=== PATIENT | female | born 1940 | race Caucasian/White ===

== ENCOUNTER 2020-10-11 10:34 | Day surgery (SDC) | payer BC ==
--- OUTSIDE RECORDS SUMMARY | 2020-10-11 10:56 | XMS REPORT | Continuity of Care Document ---
:1940 Author Organization [facility] t Address [phone] Care Team Providers Name Role Phone Doctor Unassigned, Name Attending Clinician Unavailable 1, Lab Attending Clinician Unavailable Payers Payer Name Policy Type Policy Number Effective Date Expiration Date S ource Problems This patient has no known problems. Allergies, Adverse Reactions, Alerts Allergy Allergy Status Severity Reaction(s) Onset Inactive Treating Comm ents Source Name Type Date Date Clinician No Known DA Active U 2018-11 [facility] 0-12 [place] [facility] 00:00: [address] No Known DA Active U 2003-0 [facility]rast 12-20 [place] [facility] 00:00: [address] No Known DA Active U 2004-0 [facility] 12-20 [place] [facility] 00:00: [address] No Known DA Active U 2003-0 [facility] 12-20 [place] [facility] 00:00: [address] No Known DA Active U 2004-0 [facility] Other 12-20 [place] [facility] 00:00: [address] Medications This patient has no known medications. Procedures This patient has no known procedures. 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 1, [facility] Lab [facility] [id number] 15:22:57 15:37:57 Visit [place] [id number] [place] [id number] [place] [id number] [id number] 2019-08-02 2019-08-02 Orders Doctor JOSHI [id number] 00:00:00 00:00:00 Only UnassignedMARGARITA [id number] [place] [id number] [id number] [id number] Results Test Description Test Time Test Comments Results Result Comments Source GLUCOSE BEDSIDE TESTING 2019-09-11 21:59:00 Test Item Value Reference Range Interpretation Comme nts GLUCOSE BEDSIDE TESTING (test code = GLUBED) 250 MG/DL 60-99 H GLUCOSE BEDSIDE [id number] 12:28:00 Test Item Value Reference Range Interpretation Comments GLUCOSE BEDSIDE TESTING (test code 202 MG/DL 60-99 H = GLUBED) BASIC METABOLIC [id number] 07:39:00 Test Item Value Reference Range Interpretation Comments SODIUM (test code = 134 MMOL/L 137-145 L NA) POTASSIUM (test code = 3.9 MMOL/L 3.5-5.1 N K) CHLORIDE (test code = 98 MMOL/L 98-107 N CL) CARBON DIOXIDE (test 27 MMOL/L 22-30 N code = CO2) GLUCOSE (test code = 277 MG/DL 74-106 H GLU) BLOOD UREA NITROGEN 28 MG/DL 7-17 H (test code = BUN) GLOMERULAR FILTRATION 48 Report ing units: RATE (test code = GFR) ml/mi n/1.73 m2 (Modified MDRD Formula)Referen ce Range: > or = 6 0 ml/min/1.73 m2 CREATININE (test code 1.10 MG/DL 0.52-1.04 H = CREAT) CALCIUM (test code = 9.2 MG/DL 8.4-10.2 N CA) BASIC METABOLIC [id number] 07:38:00 Test Item Value Reference Range Interpretation Comments SODIUM (test code = 134 MMOL/L 137-145 L NA) POTASSIUM (test code = 3.9 MMOL/L 3.5-5.1 N K) CHLORIDE (test code = 98 MMOL/L 98-107 N CL) CARBON DIOXIDE (test MMOL/L 22-30 code = CO2) GLUCOSE (test code = MG/DL 74-106 GLU) BLOOD UREA NITROGEN MG/DL 7-17 (test code = BUN) GLOMERULAR FILTRATION 48 Report ing units: RATE (test code = GFR) ml/mi n/1.73 m2 (Modified MDRD Formula)Referen ce Range: > or = 6 0 ml/min/1.73 m2 CREATININE (test code 1.10 MG/DL 0.52-1.04 H = CREAT) CALCIUM (test code = MG/DL 8.7-9.7 CA) BASIC METABOLIC [id number] 07:36:00 Test Item Value Reference Range Interpretation Comments SODIUM (test code = NA) 134 MMOL/L 137-145 L POTASSIUM (test code = K) 3.9 MMOL/L 3.5-5.1 N CHLORIDE (test code = CL) 98 MMOL/L 98-107 N CARBON DIOXIDE (test code = CO2) MMOL/L 22-30 GLUCOSE (test code = GLU) MG/DL 74-106 BLOOD UREA NITROGEN (test code = MG/DL 7-17 BUN) GLOMERULAR FILTRATION RATE (test code = GFR) CREATININE (test code = CREAT) MG/DL 0.52-1.04 CALCIUM (test code = CA) MG/DL 8.7-9.7 GLUCOSE BEDSIDE [id number] 06:49:00 Test Item Value Reference Range Interpretation Comments GLUCOSE BEDSIDE TESTING (test code 264 MG/DL 60-99 H = GLUBED) GLUCOSE BEDSIDE [id number] 06:27:00 Test Item Value Reference Range Interpretation Comments GLUCOSE BEDSIDE TESTING (test code 266 MG/DL 60-99 H = GLUBED) GLUCOSE BEDSIDE [id number] 17:19:00 Test Item Value Reference Range Interpretation Comments GLUCOSE BEDSIDE TESTING (test code 209 MG/DL 60-99 H = GLUBED) GLUCOSE BEDSIDE [id number] 15:13:00 Test Item Value Reference Range Interpretation Comments GLUCOSE BEDSIDE TESTING (test code 265 MG/DL 60-99 H = GLUBED) GLUCOSE BEDSIDE [id number] 06:51:00 Test Item Value Reference Range Interpretation Comments GLUCOSE BEDSIDE TESTING (test code 256 MG/DL 60-99 H = GLUBED) GLUCOSE BEDSIDE [id number] 21:01:00 Test Item Value Reference Range Interpretation Comments GLUCOSE BEDSIDE TESTING (test code 274 MG/DL 60-99 H = GLUBED) GLUCOSE BEDSIDE [id number] 21:01:00 Test Item Value Reference Range Interpretation Comments GLUCOSE BEDSIDE TESTING (test code 228 MG/DL 60-99 H = GLUBED) GLUCOSE BEDSIDE [id number] 21:01:00 Test Item Value Reference Range Interpretation Comments GLUCOSE BEDSIDE TESTING (test code 250 MG/DL 60-99 H = GLUBED) GLUCOSE BEDSIDE [id number] 11:28:00 Test Item Value Reference Range Interpretation Comments GLUCOSE BEDSIDE TESTING (test code 228 MG/DL 60-99 H = GLUBED) GLUCOSE BEDSIDE [id number] 08:24:00 Test Item Value Reference Range Interpretation Comments GLUCOSE BEDSIDE TESTING (test code 230 MG/DL 60-99 H = GLUBED) GLUCOSE BEDSIDE [id number] 05:54:00 Test Item Value Reference Range Interpretation Comments GLUCOSE BEDSIDE TESTING 257 MG/DL 60-99 H Noti fied Nurse~ (test code = GLUBED) GLUCOSE BEDSIDE [id number] 00:11:00 Test Item Value Reference Range Interpretation Comments GLUCOSE BEDSIDE TESTING (test code 257 MG/DL 60-99 H = GLUBED) GLUCOSE BEDSIDE [id number] 20:57:00 Test Item Value Reference Range Interpretation Comments GLUCOSE BEDSIDE TESTING 268 MG/DL 60-99 H Noti fied Nurse~ (test code = GLUBED) GLUCOSE BEDSIDE [id number] 17:16:00 Test Item Value Reference Range Interpretation Comments GLUCOSE BEDSIDE TESTING (test code 182 MG/DL 60-99 H = GLUBED) GLUCOSE BEDSIDE [id number] 14:33:00 Test Item Value Reference Range Interpretation Comments GLUCOSE BEDSIDE TESTING (test code 243 MG/DL 60-99 H = GLUBED) GLUCOSE BEDSIDE [id number] 12:53:00 Test Item Value Reference Range Interpretation Comments GLUCOSE BEDSIDE TESTING (test code 278 MG/DL 60-99 H = GLUBED) POC ARTERIAL BLOOD [id number] 10:39:00 Test Item Value Reference Range Interpretation Comments POC ARTERIAL BLOOD GAS PH 7.448 7.35-7.45 N (test code = POCPHA) POC ARTERIAL BLOOD GAS PCO2 35.2 mmHg 35.0-45.0 N (test code = [id number]) POC ARTERIAL BLOOD GAS PO2 70 75.0-100.0 L (test code = FNHDB1G) POC HCO3 ARTERIAL (test code 24.4 MMOL/L 20.0-26.0 N = ZNLRWW3A) POC BASE EXCESS (test code = 0.0 MMOL/L -3.0-3.0 N POCBEA) POC O2 SATURATION (test code 95 % 92.0-98.5 N = POCO2S) FIO2 (test code = FIO2A) 21 % 21-100 N ABG DELIVERY (test code = Room Air JOSE) ABG SITE (test code = SITEA) R Radial ALLENS TEST (test code = YES CHECK RN Ntfd//RBV~ ALLENS) GLUCOSE BEDSIDE [id number] 08:49:00 Test Item Value Reference Range Interpretation Comments GLUCOSE BEDSIDE TESTING (test code 237 MG/DL 60-99 H = GLUBED) BASIC METABOLIC [id number] 08:29:00 Test Item Value Reference Range Interpretation Comments SODIUM (test code = 136 MMOL/L 137-145 L NA) POTASSIUM (test code = 4.3 MMOL/L 3.5-5.1 N K) CHLORIDE (test code = 96 MMOL/L 98-107 L CL) CARBON DIOXIDE (test 30 MMOL/L 22-30 N code = CO2) ANION GAP (test code = 14 MMOL/L 14-24 N GAP) GLUCOSE (test code = 249 MG/DL 74-106 H GLU) BLOOD UREA NITROGEN 30 MG/DL 7-17 H (test code = BUN) GLOMERULAR FILTRATION 44 Report ing units: RATE (test code = GFR) ml/mi n/1.73 m2 (Modified MDRD Formula)Referen ce Range: > or = 6 0 ml/min/1.73 m2 CREATININE (test code 1.20 MG/DL 0.52-1.04 H = CREAT) CALCIUM (test code = 9.7 MG/DL 8.4-10.2 N CA) BASIC METABOLIC [id number] 08:26:00 Test Item Value Reference Range Interpretation Comments SODIUM (test code = 136 MMOL/L 137-145 L NA) POTASSIUM (test code = 4.3 MMOL/L 3.5-5.1 N K) CHLORIDE (test code = 96 MMOL/L 98-107 L CL) CARBON DIOXIDE (test MMOL/L 22-30 code = CO2) GLUCOSE (test code = MG/DL 74-106 GLU) BLOOD UREA NITROGEN MG/DL 7-17 (test code = BUN) GLOMERULAR FILTRATION 44 Report ing units: RATE (test code = GFR) ml/mi n/1.73 m2 (Modified MDRD Formula)Referen ce Range: > or = 6 0 ml/min/1.73 m2 CREATININE (test code 1.20 MG/DL 0.52-1.04 H = CREAT) CALCIUM (test code = MG/DL 8.7-9.7 CA) BASIC METABOLIC [id number] 08:24:00 Test Item Value Reference Range Interpretation Comments SODIUM (test code = NA) 136 MMOL/L 137-145 L POTASSIUM (test code = K) 4.3 MMOL/L 3.5-5.1 N CHLORIDE (test code = CL) 96 MMOL/L 98-107 L CARBON DIOXIDE (test code = CO2) MMOL/L 22-30 GLUCOSE (test code = GLU) MG/DL 74-106 BLOOD UREA NITROGEN (test code = MG/DL 7-17 BUN) GLOMERULAR FILTRATION RATE (test code = GFR) CREATININE (test code = CREAT) MG/DL 0.52-1.04 CALCIUM (test code = CA) MG/DL 8.7-9.7 CBC W/AUTO [id number] 08:09:00 Test Item Value Reference Range Interpretation Comments WHITE BLOOD CELL (test code = 9.9 K/MM3 3.8-9.8 H WBC) RED BLOOD CELL (test code = 4.37 M/MM3 3.58-4.97 N RBC) HEMOGLOBIN (test code = HGB) 10.6 G/DL 11.2-14.9 L HEMATOCRIT (test code = HCT) 34.3 % 33.2-43.5 N MEAN CELL VOLUME (test code = 79 fL 80.7-99.1 L MCV) MEAN CELL HGB (test code = MCH) 24.3 pg 27.0-34.1 L MEAN CELL HGB CONCETRATION 30.9 % 32.2-35.7 L (test code = MCHC) RED CELL DISTRIBUTION WIDTH 17.5 % 12.1-15.2 H (test code = RDW) PLATELET COUNT (test code = 345 K/MM3 129-368 N PLT) MEAN PLATELET VOLUME (test code 10.1 fl 7.4-10.4 N = MPV) NEUTROPHIL % (test code = NT%) 68.5 % 43-75 N IMMATURE GRANULOCYTE % (test 1.5 % 0.0-2.0 N code = IG%) LYMPHOCYTE % (test code = LY%) 15.9 % 14-44 N MONOCYTE % (test code = MO%) 8.8 % 4-13 N EOSINOPHIL % (test code = EO%) 4.5 % 0-6 N BASOPHIL % (test code = BA%) 0.8 % 0-2 N NUCLEATED RBC % (test code = 0.0 % 0-1.0 N NRBC%) NEUTROPHIL # (test code = NT#) 6.76 K/mm3 2.0-7.6 N IMMATURE GRANULOCYTE # (test 0.15 x10 3/uL 0-0.03 H code = IG#) LYMPHOCYTE # (test code = LY#) 1.57 K/mm3 1.0-3.8 N MONOCYTE # (test code = MO#) 0.87 K/mm3 0.1-0.8 H EOSINOPHIL # (test code = EO#) 0.44 K/mm3 0.0-0.2 H BASOPHIL # (test code = BA#) 0.08 K/mm3 0.0-0.2 N NUCLEATED RBC # (test code = 0.00 K/mm3 0.0-0.1 N NRBC#) GLUCOSE BEDSIDE [id number] 22:06:00 Test Item Value Reference Range Interpretation Comments GLUCOSE BEDSIDE TESTING (test code 172 MG/DL 60-99 H = GLUBED) GLUCOSE BEDSIDE [id number] 22:06:00 Test Item Value Reference Range Interpretation Comments GLUCOSE BEDSIDE TESTING (test code 313 MG/DL 60-99 HH = GLUBED) GLUCOSE BEDSIDE [id number] 12:54:00 Test Item Value Reference Range Interpretation Comments GLUCOSE BEDSIDE TESTING (test code 167 MG/DL 60-99 H = GLUBED) GLUCOSE BEDSIDE [id number] 12:54:00 Test Item Value Reference Range Interpretation Comments GLUCOSE BEDSIDE TESTING (test code 266 MG/DL 60-99 H = GLUBED) GLUCOSE BEDSIDE [id number] 12:04:00 Test Item Value Reference Range Interpretation Comments GLUCOSE BEDSIDE TESTING (test code 292 MG/DL 60-99 H = GLUBED) GLUCOSE BEDSIDE [id number] 12:04:00 Test Item Value Reference Range Interpretation Comments GLUCOSE BEDSIDE TESTING (test code 334 MG/DL 60-99 HH = GLUBED) GLUCOSE BEDSIDE [id number] 12:03:00 Test Item Value Reference Range Interpretation Comments GLUCOSE BEDSIDE TESTING (test code 275 MG/DL 60-99 H = GLUBED) GLUCOSE BEDSIDE [id number] 12:03:00 Test Item Value Reference Range Interpretation Comments GLUCOSE BEDSIDE TESTING (test code 308 MG/DL 60-99 HH = GLUBED) GLUCOSE BEDSIDE [id number] 12:02:00 Test Item Value Reference Range Interpretation Comments GLUCOSE BEDSIDE TESTING (test code 178 MG/DL 60-99 H = GLUBED) GLUCOSE BEDSIDE [id number] 12:02:00 Test Item Value Reference Range Interpretation Comments GLUCOSE BEDSIDE TESTING (test code 250 MG/DL 60-99 H = GLUBED) GLUCOSE BEDSIDE [id number] 12:02:00 Test Item Value Reference Range Interpretation Comments GLUCOSE BEDSIDE TESTING (test code 356 MG/DL 60-99 HH = GLUBED) GLUCOSE BEDSIDE [id number] 12:00:00 Test Item Value Reference Range Interpretation Comments GLUCOSE BEDSIDE TESTING (test code 242 MG/DL 60-99 H = GLUBED) GLUCOSE BEDSIDE [id number] 06:27:00 Test Item Value Reference Range Interpretation Comments GLUCOSE BEDSIDE TESTING (test code 201 MG/DL 60-99 H = GLUBED) GLUCOSE BEDSIDE [id number] 06:27:00 Test Item Value Reference Range Interpretation Comments GLUCOSE BEDSIDE TESTING (test code 210 MG/DL 60-99 H = GLUBED) GLUCOSE BEDSIDE [id number] 21:24:00 Test Item Value Reference Range Interpretation Comments GLUCOSE BEDSIDE TESTING (test code 161 MG/DL 60-99 H = GLUBED) GLUCOSE BEDSIDE [id number] 16:14:00 Test Item Value Reference Range Interpretation Comments GLUCOSE BEDSIDE TESTING (test code 300 MG/DL 60-99 H = GLUBED) FE W/TOTAL IRON BINDING CAP.[id number] 07:28:00 Test Item Value Reference Range Interpretation Comments SERUM IRON (test code = IRON) 24 MCG/DL 37-170 L TOTAL IRON BINDING CAPACITY (test 415 MCG/DL 265-497 N code = TIBC) IRON SATURATION (test code = 6 % 12-57 L FESAT) COMPREHENSIVE METABOLIC [id number] 07:25:00 Test Item Value Reference Range Interpretation Comments SODIUM (test code = NA) 136 MMOL/L 137-145 L POTASSIUM (test code = 3.9 MMOL/L 3.5-5.1 N K) CHLORIDE (test code = 98 MMOL/L 98-107 N CL) CARBON DIOXIDE (test 30 MMOL/L 22-30 N code = CO2) ANION GAP (test code = 12 MMOL/L 14-24 L GAP) GLUCOSE (test code = 187 MG/DL 74-106 H GLU) BLOOD UREA NITROGEN 26 MG/DL 7-17 H (test code = BUN) GLOMERULAR FILTRATION 44 Report ing units: RATE (test code = GFR) ml/mi n/1.73 m2 (Modified MDRD Formula)Referen ce Range: > or = 6 0 ml/min/1.73 m2 CREATININE (test code = 1.20 MG/DL 0.52-1.04 H CREAT) TOTAL PROTEIN (test 6.9 G/DL 6.3-8.2 N code = PROT) ALBUMIN (test code = 3.8 G/DL 3.5-5.0 N ALB) CALCIUM (test code = 9.2 MG/DL 8.4-10.2 N CA) BILIRUBIN TOTAL (test 0.3 MG/DL 0.2-1.3 code = BILT) SGOT/AST (test code = 23 UNITS/L 14-36 AST) SGPT/ALT (test code = 48 UNITS/L 9-52 ALT) ALKALINE PHOSPHATASE 87 UNITS/L 38-126 N (test code = ALKP) [id number] 07:25:00 Test Item Value Reference Range Interpretation Comments PHOSPHOROUS (test code = PHOS) 4.0 MG/DL 2.5-4.5 N [id number] 07:25:00 Test Item Value Reference Range Interpretation Comments MAGNESIUM (test code = MAG) 2.0 MG/DL 1.6-2.3 FE W/TOTAL IRON BINDING CAP.2019-09-06 07:18:00 Test Item Value Reference Range Interpretation Comments SERUM IRON (test code = IRON) 24 MCG/DL 37-170 L TOTAL IRON BINDING CAPACITY (test MCG/DL 265-497 code = TIBC) IRON SATURATION (test code = FESAT) % 12-57 COMPREHENSIVE METABOLIC [id number] 07:13:00 Test Item Value Reference Range Interpretation Comments SODIUM (test code = NA) 136 MMOL/L 137-145 L POTASSIUM (test code = K) 3.9 MMOL/L 3.5-5.1 N CHLORIDE (test code = CL) 98 MMOL/L 98-107 N CARBON DIOXIDE (test code = CO2) MMOL/L 22-30 GLUCOSE (test code = GLU) MG/DL 74-106 BLOOD UREA NITROGEN (test code = MG/DL 7-17 BUN) GLOMERULAR FILTRATION RATE (test code = GFR) CREATININE (test code = CREAT) MG/DL 0.52-1.04 TOTAL PROTEIN (test code = PROT) G/DL 6.3-8.2 ALBUMIN (test code = ALB) 3.8 G/DL 3.5-5.0 N CALCIUM (test code = CA) MG/DL 8.7-9.7 BILIRUBIN TOTAL (test code = BILT) MG/DL 0.2-1.3 SGOT/AST (test code = AST) UNITS/L 15-37 SGPT/ALT (test code = ALT) UNITS/L 9-52 ALKALINE PHOSPHATASE (test code = UNITS/L 38-126 ALKP) [id number] 07:13:00 Test Item Value Reference Range Interpretation Comments PHOSPHOROUS (test code = PHOS) MG/DL 2.5-4.5 [id number] 07:13:00 Test Item Value Reference Range Interpretation Comments MAGNESIUM (test code = MAG) MG/DL 1.6-2.3 COMPREHENSIVE METABOLIC [id number] 07:12:00 Test Item Value Reference Range Interpretation Comments SODIUM (test code = NA) MMOL/L 137-145 POTASSIUM (test code = K) MMOL/L 3.5-5.1 CHLORIDE (test code = CL) MMOL/L 98-107 CARBON DIOXIDE (test code = CO2) MMOL/L 22-30 GLUCOSE (test code = GLU) MG/DL 74-106 BLOOD UREA NITROGEN (test code = MG/DL 7-17 BUN) GLOMERULAR FILTRATION RATE (test code = GFR) CREATININE (test code = CREAT) MG/DL 0.52-1.04 TOTAL PROTEIN (test code = PROT) G/DL 6.3-8.2 ALBUMIN (test code = ALB) 3.8 G/DL 3.5-5.0 N CALCIUM (test code = CA) MG/DL 8.7-9.7 BILIRUBIN TOTAL (test code = BILT) MG/DL 0.2-1.3 SGOT/AST (test code = AST) UNITS/L 15-37 SGPT/ALT (test code = ALT) UNITS/L 9-52 ALKALINE PHOSPHATASE (test code = UNITS/L 38-126 ALKP) [id number] 07:12:00 Test Item Value Reference Range Interpretation Comments PHOSPHOROUS (test code = PHOS) MG/DL 2.5-4.5 [id number] 07:12:00 Test Item Value Reference Range Interpretation Comments MAGNESIUM (test code = MAG) MG/DL 1.6-2.3 CBC W/AUTO [id number] 06:32:00 Test Item Value Reference Range Interpretation Comments WHITE BLOOD CELL (test code = 11.8 K/MM3 3.8-9.8 H WBC) RED BLOOD CELL (test code = 4.21 M/MM3 3.58-4.97 N RBC) HEMOGLOBIN (test code = HGB) 10.1 G/DL 11.2-14.9 L HEMATOCRIT (test code = HCT) 33.4 % 33.2-43.5 N MEAN CELL VOLUME (test code = 79 fL 80.7-99.1 L MCV) MEAN CELL HGB (test code = MCH) 24.0 pg 27.0-34.1 L MEAN CELL HGB CONCETRATION 30.2 % 32.2-35.7 L (test code = MCHC) RED CELL DISTRIBUTION WIDTH 17.7 % 12.1-15.2 H (test code = RDW) PLATELET COUNT (test code = 334 K/MM3 129-368 N PLT) MEAN PLATELET VOLUME (test code 10.0 fl 7.4-10.4 N = MPV) NEUTROPHIL % (test code = NT%) 67.8 % 43-75 N IMMATURE GRANULOCYTE % (test 0.6 % 0.0-2.0 N code = IG%) LYMPHOCYTE % (test code = LY%) 19.0 % 14-44 N MONOCYTE % (test code = MO%) 8.6 % 4-13 N EOSINOPHIL % (test code = EO%) 3.6 % 0-6 N BASOPHIL % (test code = BA%) 0.4 % 0-2 N NUCLEATED RBC % (test code = 0.0 % 0-1.0 N NRBC%) NEUTROPHIL # (test code = NT#) 7.98 K/mm3 2.0-7.6 H IMMATURE GRANULOCYTE # (test 0.07 x10 3/uL 0-0.03 H code = IG#) LYMPHOCYTE # (test code = LY#) 2.24 K/mm3 1.0-3.8 N MONOCYTE # (test code = MO#) 1.01 K/mm3 0.1-0.8 H EOSINOPHIL # (test code = EO#) 0.42 K/mm3 0.0-0.2 H BASOPHIL # (test code = BA#) 0.05 K/mm3 0.0-0.2 N NUCLEATED RBC # (test code = 0.00 K/mm3 0.0-0.1 N NRBC#) GLUCOSE BEDSIDE [id number] 05:58:00 Test Item Value Reference Range Interpretation Comments GLUCOSE BEDSIDE TESTING (test code 167 MG/DL 60-99 H = GLUBED) GLUCOSE BEDSIDE [id number] 02:02:00 Test Item Value Reference Range Interpretation Comments GLUCOSE BEDSIDE TESTING (test code 122 MG/DL 60-99 H = GLUBED) GLUCOSE BEDSIDE [id number] 21:33:00 Test Item Value Reference Range Interpretation Comments GLUCOSE BEDSIDE TESTING (test code 264 MG/DL 60-99 H = GLUBED) COMPREHENSIVE METABOLIC [id number] 07:21:00 Test Item Value Reference Range Interpretation Comments SODIUM (test code = NA) 139 MMOL/L 137-145 N POTASSIUM (test code = 3.5 MMOL/L 3.5-5.1 N K) CHLORIDE (test code = 98 MMOL/L 98-107 N CL) CARBON DIOXIDE (test 32 MMOL/L 22-30 H code = CO2) ANION GAP (test code = 13 MMOL/L 14-24 L GAP) GLUCOSE (test code = 162 MG/DL 74-106 H GLU) BLOOD UREA NITROGEN 29 MG/DL 7-17 H (test code = BUN) GLOMERULAR FILTRATION 40 Report ing units: RATE (test code = GFR) ml/mi n/1.73 m2 (Modified MDRD Formula)Referen ce Range: > or = 6 0 ml/min/1.73 m2 CREATININE (test code = 1.30 MG/DL 0.52-1.04 H CREAT) TOTAL PROTEIN (test 6.7 G/DL 6.3-8.2 N code = PROT) ALBUMIN (test code = 3.7 G/DL 3.5-5.0 N ALB) CALCIUM (test code = 8.9 MG/DL 8.4-10.2 N CA) BILIRUBIN TOTAL (test 0.4 MG/DL 0.2-1.3 N code = BILT) SGOT/AST (test code = 37 UNITS/L 14-36 H AST) SGPT/ALT (test code = 64 UNITS/L 9-52 H ALT) ALKALINE PHOSPHATASE 84 UNITS/L 38-126 (test code = ALKP) [id number] 07:21:00 Test Item Value Reference Range Interpretation Comments PHOSPHOROUS (test code = PHOS) 4.4 MG/DL 2.5-4.5 [id number] 07:21:00 Test Item Value Reference Range Interpretation Comments MAGNESIUM (test code = MAG) 1.7 MG/DL 1.6-2.3 N COMPREHENSIVE METABOLIC [id number] 07:20:00 Test Item Value Reference Range Interpretation Comments SODIUM (test code = NA) 139 MMOL/L 137-145 N POTASSIUM (test code = 3.5 MMOL/L 3.5-5.1 N K) CHLORIDE (test code = 98 MMOL/L 98-107 N CL) CARBON DIOXIDE (test 32 MMOL/L 22-30 H code = CO2) ANION GAP (test code = 13 MMOL/L 14-24 L GAP) GLUCOSE (test code = 162 MG/DL 74-106 H GLU) BLOOD UREA NITROGEN 29 MG/DL 7-17 H (test code = BUN) GLOMERULAR FILTRATION 40 Report ing units: RATE (test code = GFR) ml/mi n/1.73 m2 (Modified MDRD Formula)Referen ce Range: > or = 6 0 ml/min/1.73 m2 CREATININE (test code = 1.30 MG/DL 0.52-1.04 H CREAT) TOTAL PROTEIN (test 6.7 G/DL 6.3-8.2 N code = PROT) ALBUMIN (test code = 3.7 G/DL 3.5-5.0 N ALB) CALCIUM (test code = MG/DL 8.7-9.7 CA) BILIRUBIN TOTAL (test 0.4 MG/DL 0.2-1.3 N code = BILT) SGOT/AST (test code = 37 UNITS/L 14-36 H AST) SGPT/ALT (test code = 64 UNITS/L 9-52 H ALT) ALKALINE PHOSPHATASE 84 UNITS/L 38-126 (test code = ALKP) [id number] 07:20:00 Test Item Value Reference Range Interpretation Comments PHOSPHOROUS (test code = PHOS) 4.4 MG/DL 2.5-4.5 [id number] 07:20:00 Test Item Value Reference Range Interpretation Comments MAGNESIUM (test code = MAG) MG/DL 1.6-2.3 COMPREHENSIVE METABOLIC [id number] 07:20:00 Test Item Value Reference Range Interpretation Comments SODIUM (test code = NA) 139 MMOL/L 137-145 N POTASSIUM (test code = 3.5 MMOL/L 3.5-5.1 N K) CHLORIDE (test code = 98 MMOL/L 98-107 N CL) CARBON DIOXIDE (test 32 MMOL/L 22-30 H code = CO2) ANION GAP (test code = 13 MMOL/L 14-24 L GAP) GLUCOSE (test code = 162 MG/DL 74-106 H GLU) BLOOD UREA NITROGEN 29 MG/DL 7-17 H (test code = BUN) GLOMERULAR FILTRATION 40 Report ing units: RATE (test code = GFR) ml/mi n/1.73 m2 (Modified MDRD Formula)Referen ce Range: > or = 6 0 ml/min/1.73 m2 CREATININE (test code = 1.30 MG/DL 0.52-1.04 H CREAT) TOTAL PROTEIN (test 6.7 G/DL 6.3-8.2 N code = PROT) ALBUMIN (test code = 3.7 G/DL 3.5-5.0 N ALB) CALCIUM (test code = 8.9 MG/DL 8.4-10.2 N CA) BILIRUBIN TOTAL (test 0.4 MG/DL 0.2-1.3 N code = BILT) SGOT/AST (test code = 37 UNITS/L 14-36 H AST) SGPT/ALT (test code = 64 UNITS/L 9-52 H ALT) ALKALINE PHOSPHATASE 84 UNITS/L 38-126 (test code = ALKP) [id number] 07:20:00 Test Item Value Reference Range Interpretation Comments PHOSPHOROUS (test code = PHOS) 4.4 MG/DL 2.5-4.5 [id number] 07:20:00 Test Item Value Reference Range Interpretation Comments MAGNESIUM (test code = MAG) MG/DL 1.6-2.3 COMPREHENSIVE METABOLIC [id number] 07:19:00 Test Item Value Reference Range Interpretation Comments SODIUM (test code = NA) 139 MMOL/L 137-145 N POTASSIUM (test code = 3.5 MMOL/L 3.5-5.1 N K) CHLORIDE (test code = 98 MMOL/L 98-107 N CL) CARBON DIOXIDE (test MMOL/L 22-30 code = CO2) GLUCOSE (test code = MG/DL 74-106 GLU) BLOOD UREA NITROGEN MG/DL 7-17 (test code = BUN) GLOMERULAR FILTRATION 40 Report ing units: RATE (test code = GFR) ml/mi n/1.73 m2 (Modified MDRD Formula)Referen ce Range: > or = 6 0 ml/min/1.73 m2 CREATININE (test code = 1.30 MG/DL 0.52-1.04 H CREAT) TOTAL PROTEIN (test G/DL 6.3-8.2 code = PROT) ALBUMIN (test code = 3.7 G/DL 3.5-5.0 N ALB) CALCIUM (test code = MG/DL 8.7-9.7 CA) BILIRUBIN TOTAL (test 0.4 MG/DL 0.2-1.3 N code = BILT) SGOT/AST (test code = UNITS/L 15-37 AST) SGPT/ALT (test code = UNITS/L 9-52 ALT) ALKALINE PHOSPHATASE UNITS/L 38-126 (test code = ALKP) [id number] 07:19:00 Test Item Value Reference Range Interpretation Comments PHOSPHOROUS (test code = PHOS) MG/DL 2.5-4.5 [id number] 07:19:00 Test Item Value Reference Range Interpretation Comments MAGNESIUM (test code = MAG) MG/DL 1.6-2.3 LACTIC [id number] 07:17:00 Test Item Value Reference Range Interpretation Comments LACTIC ACID (test code = LACT) 1.7 MMOL/L 0.7-2.1 N COMPREHENSIVE METABOLIC [id number] 07:17:00 Test Item Value Reference Range Interpretation Comments SODIUM (test code = NA) 139 MMOL/L 137-145 N POTASSIUM (test code = K) 3.5 MMOL/L 3.5-5.1 N CHLORIDE (test code = CL) 98 MMOL/L 98-107 N CARBON DIOXIDE (test code = CO2) MMOL/L 22-30 GLUCOSE (test code = GLU) MG/DL 74-106 BLOOD UREA NITROGEN (test code = MG/DL 7-17 BUN) GLOMERULAR FILTRATION RATE (test code = GFR) CREATININE (test code = CREAT) MG/DL 0.52-1.04 TOTAL PROTEIN (test code = PROT) G/DL 6.3-8.2 ALBUMIN (test code = ALB) 3.7 G/DL 3.5-5.0 N CALCIUM (test code = CA) MG/DL 8.7-9.7 BILIRUBIN TOTAL (test code = BILT) MG/DL 0.2-1.3 SGOT/AST (test code = AST) UNITS/L 15-37 SGPT/ALT (test code = ALT) UNITS/L 9-52 ALKALINE PHOSPHATASE (test code = UNITS/L 38-126 ALKP) [id number] 07:17:00 Test Item Value Reference Range Interpretation Comments PHOSPHOROUS (test code = PHOS) MG/DL 2.5-4.5 [id number] 07:17:00 Test Item Value Reference Range Interpretation Comments MAGNESIUM (test code = MAG) MG/DL 1.6-2.3 COMPREHENSIVE METABOLIC [id number] 07:16:00 Test Item Value Reference Range Interpretation Comments SODIUM (test code = NA) MMOL/L 137-145 POTASSIUM (test code = K) MMOL/L 3.5-5.1 CHLORIDE (test code = CL) MMOL/L 98-107 CARBON DIOXIDE (test code = CO2) MMOL/L 22-30 GLUCOSE (test code = GLU) MG/DL 74-106 BLOOD UREA NITROGEN (test code = MG/DL 7-17 BUN) GLOMERULAR FILTRATION RATE (test code = GFR) CREATININE (test code = CREAT) MG/DL 0.52-1.04 TOTAL PROTEIN (test code = PROT) G/DL 6.3-8.2 ALBUMIN (test code = ALB) 3.7 G/DL 3.5-5.0 N CALCIUM (test code = CA) MG/DL 8.7-9.7 BILIRUBIN TOTAL (test code = BILT) MG/DL 0.2-1.3 SGOT/AST (test code = AST) UNITS/L 15-37 SGPT/ALT (test code = ALT) UNITS/L 9-52 ALKALINE PHOSPHATASE (test code = UNITS/L 38-126 ALKP) [id number] 07:16:00 Test Item Value Reference Range Interpretation Comments PHOSPHOROUS (test code = PHOS) MG/DL 2.5-4.5 [id number] 07:16:00 Test Item Value Reference Range Interpretation Comments MAGNESIUM (test code = MAG) MG/DL 1.6-2.3 CBC W/AUTO [id number] 07:08:00 Test Item Value Reference Range Interpretation Comments WHITE BLOOD CELL (test code = 12.8 K/MM3 3.8-9.8 H WBC) RED BLOOD CELL (test code = 4.23 M/MM3 3.58-4.97 N RBC) HEMOGLOBIN (test code = HGB) 10.3 G/DL 11.2-14.9 L HEMATOCRIT (test code = HCT) 33.8 % 33.2-43.5 N MEAN CELL VOLUME (test code = 80 fL 80.7-99.1 L MCV) MEAN CELL HGB (test code = MCH) 24.3 pg 27.0-34.1 L MEAN CELL HGB CONCETRATION 30.5 % 32.2-35.7 L (test code = MCHC) RED CELL DISTRIBUTION WIDTH 18.1 % 12.1-15.2 H (test code = RDW) PLATELET COUNT (test code = 350 K/MM3 129-368 N PLT) MEAN PLATELET VOLUME (test code 10.4 fl 7.4-10.4 N = MPV) NEUTROPHIL % (test code = NT%) 71.7 % 43-75 N IMMATURE GRANULOCYTE % (test 0.9 % 0.0-2.0 N code = IG%) LYMPHOCYTE % (test code = LY%) 16.7 % 14-44 N MONOCYTE % (test code = MO%) 9.2 % 4-13 N EOSINOPHIL % (test code = EO%) 1.2 % 0-6 N BASOPHIL % (test code = BA%) 0.3 % 0-2 N NUCLEATED RBC % (test code = 0.0 % 0-1.0 N NRBC%) NEUTROPHIL # (test code = NT#) 9.17 K/mm3 2.0-7.6 H IMMATURE GRANULOCYTE # (test 0.12 x10 3/uL 0-0.03 H code = IG#) LYMPHOCYTE # (test code = LY#) 2.13 K/mm3 1.0-3.8 N MONOCYTE # (test code = MO#) 1.17 K/mm3 0.1-0.8 H EOSINOPHIL # (test code = EO#) 0.15 K/mm3 0.0-0.2 N BASOPHIL # (test code = BA#) 0.04 K/mm3 0.0-0.2 N NUCLEATED RBC # (test code = 0.00 K/mm3 0.0-0.1 N NRBC#) GLUCOSE BEDSIDE [id number] 03:49:00 Test Item Value Reference Range Interpretation Comments GLUCOSE BEDSIDE TESTING (test code 148 MG/DL 60-99 H = GLUBED) [id number] 01:07:00 Test Item Value Reference Range Interpretation Comments ACT-ISTAT (test code = ACTI) 120 SEC 74-137 N [id number] 01:07:00 Test Item Value Reference Range Interpretation Comments ACT-ISTAT (test code = ACTI) 125 SEC 74-137 N BASIC METABOLIC [id number] 23:48:00 Test Item Value Reference Range Interpretation Comments SODIUM (test code = 140 MMOL/L 137-145 N NA) POTASSIUM (test code = 3.8 MMOL/L 3.5-5.1 N K) CHLORIDE (test code = 100 MMOL/L 98-107 N CL) CARBON DIOXIDE (test 29 MMOL/L 22-30 N code = CO2) ANION GAP (test code = 15 MMOL/L 14-24 N GAP) GLUCOSE (test code = 188 MG/DL 74-106 H GLU) BLOOD UREA NITROGEN 28 MG/DL 7-17 H (test code = BUN) GLOMERULAR FILTRATION 40 Report ing units: RATE (test code = GFR) ml/mi n/1.73 m2 (Modified MDRD Formula)Referen ce Range: > or = 6 0 ml/min/1.73 m2 CREATININE (test code 1.30 MG/DL 0.52-1.04 H = CREAT) CALCIUM (test code = 9.4 MG/DL 8.4-10.2 N CA) Comments to Solution Maker: SPECIMEN IN LABIs this a LINE draw? NMAGNESIUM 2019-09-04 23:48:00 Test Item Value Reference Range Interpretation Comments MAGNESIUM (test code = MAG) 1.8 MG/DL 1.6-2.3 N Comments to Solution Maker: SPECIMEN IN LABIs this a LINE draw? NBASIC METABOLIC [id number] 23:47:00 Test Item Value Reference Range Interpretation Comments SODIUM (test code = NA) 140 MMOL/L 137-145 N POTASSIUM (test code = K) 3.8 MMOL/L 3.5-5.1 N CHLORIDE (test code = CL) 100 MMOL/L 98-107 N CARBON DIOXIDE (test code = CO2) 29 MMOL/L 22-30 N ANION GAP (test code = GAP) 15 MMOL/L 14-24 N GLUCOSE (test code = GLU) MG/DL 74-106 BLOOD UREA NITROGEN (test code = MG/DL 7-17 BUN) GLOMERULAR FILTRATION RATE (test code = GFR) CREATININE (test code = CREAT) MG/DL 0.52-1.04 CALCIUM (test code = CA) MG/DL 8.7-9.7 Comments to Solution Maker: SPECIMEN IN LABIs this a LINE draw? NMAGNESIUM 2019-09-04 23:47:00 Test Item Value Reference Range Interpretation Comments MAGNESIUM (test code = MAG) MG/DL 1.6-2.3 Comments to Solution Maker: SPECIMEN IN LABIs this a LINE draw? NBASIC METABOLIC [id number] 23:47:00 Test Item Value Reference Range Interpretation Comments SODIUM (test code = 140 MMOL/L 137-145 N NA) POTASSIUM (test code = 3.8 MMOL/L 3.5-5.1 N K) CHLORIDE (test code = 100 MMOL/L 98-107 N CL) CARBON DIOXIDE (test 29 MMOL/L 22-30 N code = CO2) ANION GAP (test code = 15 MMOL/L 14-24 N GAP) GLUCOSE (test code = MG/DL 74-106 GLU) BLOOD UREA NITROGEN MG/DL 7-17 (test code = BUN) GLOMERULAR FILTRATION 40 Report ing units: RATE (test code = GFR) ml/mi n/1.73 m2 (Modified MDRD Formula)Referen ce Range: > or = 6 0 ml/min/1.73 m2 CREATININE (test code 1.30 MG/DL 0.52-1.04 H = CREAT) CALCIUM (test code = MG/DL 8.7-9.7 CA) Comments to Solution Maker: SPECIMEN IN LABIs this a LINE draw? NMAGNESIUM 2019-09-04 23:47:00 Test Item Value Reference Range Interpretation Comments MAGNESIUM (test code = MAG) MG/DL 1.6-2.3 Comments to Solution Maker: SPECIMEN IN LABIs this a LINE draw? NBASIC METABOLIC [id number] 23:44:00 Test Item Value Reference Range Interpretation Comments SODIUM (test code = NA) 140 MMOL/L 137-145 N POTASSIUM (test code = K) 3.8 MMOL/L 3.5-5.1 N CHLORIDE (test code = CL) 100 MMOL/L 98-107 N CARBON DIOXIDE (test code = CO2) MMOL/L 22-30 GLUCOSE (test code = GLU) MG/DL 74-106 BLOOD UREA NITROGEN (test code = MG/DL 7-17 BUN) GLOMERULAR FILTRATION RATE (test code = GFR) CREATININE (test code = CREAT) MG/DL 0.52-1.04 CALCIUM (test code = CA) MG/DL 8.7-9.7 Comments to Solution Maker: SPECIMEN IN LABIs this a LINE draw? NMAGNESIUM 2019-09-04 23:44:00 Test Item Value Reference Range Interpretation Comments MAGNESIUM (test code = MAG) MG/DL 1.6-2.3 Comments to Solution Maker: SPECIMEN IN LABIs this a LINE draw? NGLUCOSE BEDSIDE [id number] 23:43:00 Test Item Value Reference Range Interpretation Comments GLUCOSE BEDSIDE TESTING (test code 155 MG/DL 60-99 H = GLUBED) [id number] 23:36:00 Test Item Value Reference Range Interpretation Comments TROPONIN-I (test 0.906 NG/ML 0.012-0.033 HH CALLED TO Sweta Conn& code = TROPI) READBACK ON AT 2336 BY [employer] GLUCOSE BEDSIDE [id number] 21:15:00 Test Item Value Reference Range Interpretation Comments GLUCOSE BEDSIDE TESTING (test code 191 MG/DL 60-99 H = GLUBED) GLUCOSE BEDSIDE [id number] 19:54:00 Test Item Value Reference Range Interpretation Comments GLUCOSE BEDSIDE TESTING (test code 221 MG/DL 60-99 H = GLUBED) BASIC METABOLIC [id number] 17:50:00 Test Item Value Reference Range Interpretation Comments SODIUM (test code = 137 MMOL/L 137-145 N NA) POTASSIUM (test code = 4.7 MMOL/L 3.5-5.1 N K) CHLORIDE (test code = 101 MMOL/L 98-107 N CL) CARBON DIOXIDE (test 26 MMOL/L 22-30 N code = CO2) ANION GAP (test code = 15 MMOL/L 14-24 N GAP) GLUCOSE (test code = 350 MG/DL 74-106 HH CALLED TO ADI Rossi& GLU) READBACK ON 11/11 AT 1656 BY Ligia Manzano BLOOD UREA NITROGEN 29 MG/DL 7-17 H (test code = BUN) GLOMERULAR FILTRATION 36 Report ing units: RATE (test code = GFR) ml/mi n/1.73 m2 (Modified MDRD Formula)Referen ce Range: > or = 6 0 ml/min/1.73 m2 CREATININE (test code 1.40 MG/DL 0.52-1.04 H = CREAT) CALCIUM (test code = 9.3 MG/DL 8.4-10.2 N CA) [id number] 17:50:00 Test Item Value Reference Range Interpretation Comments TROPONIN-I (test 0.905 NG/ML 0.012-0.033 HH CALLED TO Josep Rossi& code = TROPI) READBACK ON AT 1750 BY Josep Manzano BASIC METABOLIC [id number] 16:56:00 Test Item Value Reference Range Interpretation Comments SODIUM (test code = 137 MMOL/L 137-145 N NA) POTASSIUM (test code = 4.7 MMOL/L 3.5-5.1 N K) CHLORIDE (test code = 101 MMOL/L 98-107 N CL) CARBON DIOXIDE (test 26 MMOL/L 22-30 N code = CO2) ANION GAP (test code = 15 MMOL/L 14-24 N GAP) GLUCOSE (test code = 350 MG/DL 74-106 HH CALLED TO ADI Rossi& GLU) READBACK ON 11/11 AT 1656 BY Ligia Manzano BLOOD UREA NITROGEN 29 MG/DL 7-17 H (test code = BUN) GLOMERULAR FILTRATION 36 Report ing units: RATE (test code = GFR) ml/mi n/1.73 m2 (Modified MDRD Formula)Referen ce Range: > or = 6 0 ml/min/1.73 m2 CREATININE (test code 1.40 MG/DL 0.52-1.04 H = CREAT) CALCIUM (test code = 9.3 MG/DL 8.4-10.2 N CA) [id number] 16:56:00 Test Item Value Reference Range Interpretation Comments TROPONIN-I (test code = TROPI) NG/ML 0.0-0.045 LACTIC [id number] 16:48:00 Test Item Value Reference Range Interpretation Comments LACTIC ACID (test code = LACT) 2.3 MMOL/L 0.7-2.1 H BASIC METABOLIC [id number] 16:48:00 Test Item Value Reference Range Interpretation Comments SODIUM (test code = 137 MMOL/L 137-145 N NA) POTASSIUM (test code = 4.7 MMOL/L 3.5-5.1 N K) CHLORIDE (test code = 101 MMOL/L 98-107 N CL) CARBON DIOXIDE (test MMOL/L 22-30 code = CO2) GLUCOSE (test code = MG/DL 74-106 GLU) BLOOD UREA NITROGEN MG/DL 7-17 (test code = BUN) GLOMERULAR FILTRATION 36 Report ing units: RATE (test code = GFR) ml/mi n/1.73 m2 (Modified MDRD Formula)Referen ce Range: > or = 6 0 ml/min/1.73 m2 CREATININE (test code 1.40 MG/DL 0.52-1.04 H = CREAT) CALCIUM (test code = MG/DL 8.7-9.7 CA) [id number] 16:48:00 Test Item Value Reference Range Interpretation Comments TROPONIN-I (test code = TROPI) NG/ML 0.0-0.045 BASIC METABOLIC [id number] 16:47:00 Test Item Value Reference Range Interpretation Comments SODIUM (test code = NA) 137 MMOL/L 137-145 N POTASSIUM (test code = K) 4.7 MMOL/L 3.5-5.1 N CHLORIDE (test code = CL) 101 MMOL/L 98-107 N CARBON DIOXIDE (test code = CO2) MMOL/L 22-30 GLUCOSE (test code = GLU) MG/DL 74-106 BLOOD UREA NITROGEN (test code = MG/DL 7-17 BUN) GLOMERULAR FILTRATION RATE (test code = GFR) CREATININE (test code = CREAT) MG/DL 0.52-1.04 CALCIUM (test code = CA) MG/DL 8.7-9.7 [id number] 16:47:00 Test Item Value Reference Range Interpretation Comments TROPONIN-I (test code = TROPI) NG/ML 0.0-0.045 URINALYSIS [id number] 14:53:00 Test Item Value Reference Range Interpretation Comments UA COLOR (test code = YELLOW YELLOW COLU) UA APPEARANCE (test code CLEAR CLEAR = APPU) UA GLUCOSE DIPSTICK (test 1000 MG/DL NORMAL A code = DGLUU) UA BILIRUBIN DIPSTICK NEGATIVE MG/DL NEGATIVE (test code = BILU) UA KETONE DIPSTICK (test NEGATIVE MG/DL NEGATIVE code = KETU) UA SPECIFIC GRAVITY (test 1.010 1.003-1.030 N code = SGU) UA BLOOD DIPSTICK (test 25 Jarrod/mm3 NEGATIVE A code = MAX) UA PH DIPSTICK (test code 5.0 5.0-9.0 N = JIMI) UA PROTEIN DIPSTICK (test NEGATIVE MG/DL NEGATIVE code = PROU) UA UROBILINIOGEN DIPSTICK NORMAL MG/DL NORMAL (test code = URO) UA NITRITE DIPSTICK (test NEGATIVE NEGATIVE code = RAHUL) UA LEUKOCYTE ESTERASE NEGATIVE /mm3 NEGATIVE DIPSTICK (test code = LEUU) UA CULTURE NEEDED? (test NO, WBC<10 Criteria Culture Chk code = UACULT) SOURCE OF URINE: MULLER CATHETERUA [id number] 14:53:00 Test Item Value Reference Range Interpretation Comments UA RBC (test code = 5-10 RBC/HPF 0-3 A RBCU) UA WBC (test code = 3-5 WBC/HPF 0-5 FEW WBC CLUMPS XWBCU) OBSERVED UA EPITHELIAL CELLS RARE EPI/HPF FEW (test code = EPIU) UA BACTERIA (test code FEW NONE = XBACU) UA MUCUS (test code = SLIGHT #/LPF NONE MUCU) SOURCE OF URINE: MULLER CATHETERURINALYSIS [id number] 14:01:00 Test Item Value Reference Range Interpretation Comments UA COLOR (test code = COLU) YELLOW YELLOW UA APPEARANCE (test code = CLEAR CLEAR APPU) UA GLUCOSE DIPSTICK (test code 1000 MG/DL NORMAL A = DGLUU) UA BILIRUBIN DIPSTICK (test NEGATIVE MG/DL NEGATIVE code = BILU) UA KETONE DIPSTICK (test code NEGATIVE MG/DL NEGATIVE = KETU) UA SPECIFIC GRAVITY (test code 1.010 1.003-1.030 N = SGU) UA BLOOD DIPSTICK (test code = 25 Jarrod/mm3 NEGATIVE A MAX) UA PH DIPSTICK (test code = 5.0 5.0-9.0 N JIMI) UA PROTEIN DIPSTICK (test code NEGATIVE MG/DL NEGATIVE = PROU) UA UROBILINIOGEN DIPSTICK NORMAL MG/DL NORMAL (test code = URO) UA NITRITE DIPSTICK (test code NEGATIVE NEGATIVE = RAHUL) UA LEUKOCYTE ESTERASE DIPSTICK NEGATIVE /mm3 NEGATIVE (test code = LEUU) UA CULTURE NEEDED? (test code Criteria Culture Chk = UACULT) SOURCE OF URINE: MULLER CATHETERUA [id number] 14:01:00 Test Item Value Reference Range Interpretation Comments UA RBC (test code = RBCU) RBC/HPF 0-3 UA WBC (test code = XWBCU) WBC/HPF 0-5 UA EPITHELIAL CELLS (test code = EPI/HPF FEW EPIU) UA BACTERIA (test code = XBACU) NONE SOURCE OF URINE: MULLER CATHETERURINALYSIS [id number] 14:01:00 Test Item Value Reference Range Interpretation Comments UA COLOR (test code = COLU) YELLOW YELLOW UA APPEARANCE (test code = CLEAR CLEAR APPU) UA GLUCOSE DIPSTICK (test code 1000 MG/DL NORMAL A = DGLUU) UA BILIRUBIN DIPSTICK (test NEGATIVE MG/DL NEGATIVE code = BILU) UA KETONE DIPSTICK (test code NEGATIVE MG/DL NEGATIVE = KETU) UA SPECIFIC GRAVITY (test code 1.010 1.003-1.030 N = SGU) UA BLOOD DIPSTICK (test code = 25 Jarrod/mm3 NEGATIVE A MAX) UA PH DIPSTICK (test code = 5.0 5.0-9.0 N JIMI) UA PROTEIN DIPSTICK (test code NEGATIVE MG/DL NEGATIVE = PROU) UA UROBILINIOGEN DIPSTICK NORMAL MG/DL NORMAL (test code = URO) UA NITRITE DIPSTICK (test code NEGATIVE NEGATIVE = RAHUL) UA LEUKOCYTE ESTERASE DIPSTICK NEGATIVE /mm3 NEGATIVE (test code = LEUU) UA CULTURE NEEDED? (test code Criteria Culture Chk = UACULT) SOURCE OF URINE: MULLER CATHETERUA [id number] 14:01:00 Test Item Value Reference Range Interpretation Comments UA RBC (test code = RBCU) RBC/HPF 0-3 UA WBC (test code = XWBCU) WBC/HPF 0-5 UA EPITHELIAL CELLS (test code = EPI/HPF FEW EPIU) UA BACTERIA (test code = XBACU) NONE SOURCE OF URINE: MULLER CATHETERCOMPREHENSIVE METABOLIC [id number] 12:29:00 Test Item Value Reference Range Interpretation Comments SODIUM (test code = 137 MMOL/L 137-145 N NA) POTASSIUM (test code = 5.3 MMOL/L 3.5-5.1 H K) CHLORIDE (test code = 100 MMOL/L 98-107 N CL) CARBON DIOXIDE (test 24 MMOL/L 22-30 N code = CO2) ANION GAP (test code = 18 MMOL/L 14-24 N GAP) GLUCOSE (test code = 462 MG/DL 74-106 HH CALLED TO ADI DOSHI) READBACK ON 11/11 AT 1157 Esperanza Riojas BLOOD UREA NITROGEN 26 MG/DL 7-17 H (test code = BUN) GLOMERULAR FILTRATION 40 Report ing units: RATE (test code = GFR) ml/mi n/1.73 m2 (Modified MDRD Formula)Referen ce Range: > or = 6 0 ml/min/1.73 m2 CREATININE (test code 1.30 MG/DL 0.52-1.04 H = CREAT) TOTAL PROTEIN (test 7.7 G/DL 6.3-8.2 N code = PROT) ALBUMIN (test code = 4.4 G/DL 3.5-5.0 N ALB) CALCIUM (test code = 9.1 MG/DL 8.4-10.2 N CA) BILIRUBIN TOTAL (test 0.4 MG/DL 0.2-1.3 N code = BILT) SGOT/AST (test code = 78 UNITS/L 14-36 H AST) SGPT/ALT (test code = 92 UNITS/L 9-52 H ALT) ALKALINE PHOSPHATASE 106 UNITS/L 38-126 N (test code = ALKP) [id number] 12:29:00 Test Item Value Reference Range Interpretation Comments PHOSPHOROUS (test code = PHOS) 4.9 MG/DL 2.5-4.5 H [id number] 12:29:00 Test Item Value Reference Range Interpretation Comments MAGNESIUM (test code = MAG) 1.9 MG/DL 1.6-2.3 N LIPOPROTEIN LDL [id number] 12:29:00 Test Item Value Reference Range Interpretation Comments LIPOPROTEIN LDL DIRECT 112 mg/dL 100-129 N ===== (test code = LDLDIR) ======= ====R eference Interv al: mg/dL mmol/L-------- ----- ----- ----- ------Optimal < 100 <2.6Near/above optimal 100-129 2.6-3.3Borderli ne High 130-159 3.4-4.1High 160-189 4.1-4.9Very Hig h >=190 >=4.9========= This LDL result is a direct measurement.=== ===== = [id number] 12:29:00 Test Item Value Reference Range Interpretation Comments TROPONIN-I (test 0.179 NG/ML 0.012-0.033 HH CALLED TO Josep Rossi & code = TROPI) READBACK ON AT 1206 Esper[address] Riojas PROCALCITONIN (PCT)2019-09-04 12:29:00 Test Item Value Reference Range Interpretation Comments PROCALCITONIN (PCT) < 0.05 NG/ML PROCALCI TONIN (PCT) (test code = PROCAL) NORMAL RANGE (ADULT):<0.05 N G/ML. - a concentratio n < 0.5 ng/mL represent s a low risk ofsevere s epsis and/or septic s hock. - a concentratio n > 2 ng/mL represent s a high risk ofsev ere sepsis and/or s eptic shock. Neverth eless, concentrations < 0.5 ng/mL do not ex clude aninfection, on account of loca lized infections (withoutsystemi c signs) which ca n be associated with such lowconcentratio ns, or a systemic infe ction in its initials tages (< 6 hours). Furthermore, in creased procalcitoninca n occur without infecti on. PCT concentrations between 0.5and 2.0 ng/ mL should be inter preted taking into acc ount thepatient's hi story. It is recommend ed to retest PCT with in 6-24 hours if any concentrations < 2 ng/mL are obtai gricelda. COMPREHENSIVE METABOLIC [id number] 12:14:00 Test Item Value Reference Range Interpretation Comments SODIUM (test code = 137 MMOL/L 137-145 N NA) POTASSIUM (test code = 5.3 MMOL/L 3.5-5.1 H K) CHLORIDE (test code = 100 MMOL/L 98-107 N CL) CARBON DIOXIDE (test 24 MMOL/L 22-30 N code = CO2) ANION GAP (test code = 18 MMOL/L 14-24 N GAP) GLUCOSE (test code = 462 MG/DL 74-106 HH CALLED TO ADI Rossi & GLU) READBACK ON 11/11 AT 1157 Esper[address] Riojas BLOOD UREA NITROGEN 26 MG/DL 7-17 H (test code = BUN) GLOMERULAR FILTRATION 40 Report ing units: RATE (test code = GFR) ml/mi n/1.73 m2 (Modified MDRD Formula)Referen ce Range: > or = 6 0 ml/min/1.73 m2 CREATININE (test code 1.30 MG/DL 0.52-1.04 H = CREAT) TOTAL PROTEIN (test 7.7 G/DL 6.3-8.2 N code = PROT) ALBUMIN (test code = 4.4 G/DL 3.5-5.0 N ALB) CALCIUM (test code = 9.1 MG/DL 8.4-10.2 N CA) BILIRUBIN TOTAL (test 0.4 MG/DL 0.2-1.3 N code = BILT) SGOT/AST (test code = 78 UNITS/L 14-36 H AST) SGPT/ALT (test code = 92 UNITS/L 9-52 H ALT) ALKALINE PHOSPHATASE 106 UNITS/L 38-126 N (test code = ALKP) [id number] 12:14:00 Test Item Value Reference Range Interpretation Comments PHOSPHOROUS (test code = PHOS) 4.9 MG/DL 2.5-4.5 H [id number] 12:14:00 Test Item Value Reference Range Interpretation Comments MAGNESIUM (test code = MAG) 1.9 MG/DL 1.6-2.3 N LIPOPROTEIN LDL [id number] 12:14:00 Test Item Value Reference Range Interpretation Comments LIPOPROTEIN LDL DIRECT (test code = mg/dL 100-129 LDLDIR) [id number] 12:14:00 Test Item Value Reference Range Interpretation Comments TROPONIN-I (test 0.179 NG/ML 0.012-0.033 HH CALLED TO Josep Rossi & code = TROPI) READBACK ON AT 1206 Esper[place] Riojas PROCALCITONIN (PCT)2019-09-04 12:14:00 Test Item Value Reference Range Interpretation Comments PROCALCITONIN (PCT) < 0.05 NG/ML PROCALCI TONIN (PCT) (test code = PROCAL) NORMAL RANGE (ADULT):<0.05 N G/ML. - a concentratio n < 0.5 ng/mL represent s a low risk ofsevere s epsis and/or septic s hock. - a concentratio n > 2 ng/mL represent s a high risk ofsev ere sepsis and/or s eptic shock. Neverth eless, concentrations < 0.5 ng/mL do not ex clude aninfection, on account of loca lized infections (withoutsystemi c signs) which ca n be associated with such lowconcentratio ns, or a systemic infe ction in its initials tages (< 6 hours). Furthermore, in creased procalcitoninca n occur without infecti on. PCT concentrations between 0.5and 2.0 ng/ mL should be inter preted taking into acc ount thepatient's hi story. It is recommend ed to retest PCT with in 6-24 hours if any concentrations < 2 ng/mL are obtai gricelda. COMPREHENSIVE METABOLIC [id number] 12:07:00 Test Item Value Reference Range Interpretation Comments SODIUM (test code = 137 MMOL/L 137-145 N NA) POTASSIUM (test code = 5.3 MMOL/L 3.5-5.1 H K) CHLORIDE (test code = 100 MMOL/L 98-107 N CL) CARBON DIOXIDE (test 24 MMOL/L 22-30 N code = CO2) ANION GAP (test code = 18 MMOL/L 14-24 N GAP) GLUCOSE (test code = 462 MG/DL 74-106 HH CALLED TO ADI DOSHI) READBACK ON 11/11 AT 1157 [address] BLOOD UREA NITROGEN 26 MG/DL 7-17 H (test code = BUN) GLOMERULAR FILTRATION 40 Report ing units: RATE (test code = GFR) ml/mi n/1.73 m2 (Modified MDRD Formula)Referen ce Range: > or = 6 0 ml/min/1.73 m2 CREATININE (test code 1.30 MG/DL 0.52-1.04 H = CREAT) TOTAL PROTEIN (test 7.7 G/DL 6.3-8.2 N code = PROT) ALBUMIN (test code = 4.4 G/DL 3.5-5.0 N ALB) CALCIUM (test code = 9.1 MG/DL 8.4-10.2 N CA) BILIRUBIN TOTAL (test 0.4 MG/DL 0.2-1.3 N code = BILT) SGOT/AST (test code = 78 UNITS/L 14-36 H AST) SGPT/ALT (test code = 92 UNITS/L 9-52 H ALT) ALKALINE PHOSPHATASE 106 UNITS/L 38-126 N (test code = ALKP) [id number] 12:07:00 Test Item Value Reference Range Interpretation Comments PHOSPHOROUS (test code = PHOS) 4.9 MG/DL 2.5-4.5 H [id number] 12:07:00 Test Item Value Reference Range Interpretation Comments MAGNESIUM (test code = MAG) 1.9 MG/DL 1.6-2.3 N LIPOPROTEIN LDL [id number] 12:07:00 Test Item Value Reference Range Interpretation Comments LIPOPROTEIN LDL DIRECT (test code = mg/dL 100-129 LDLDIR) [id number] 12:07:00 Test Item Value Reference Range Interpretation Comments TROPONIN-I (test 0.179 NG/ML 0.012-0.033 HH CALLED TO Josep Rossi & code = TROPI) READBACK ON AT 1206 [address] PROCALCITONIN (PCT)2019-09-04 12:07:00 Test Item Value Reference Range Interpretation Comments PROCALCITONIN (PCT) (test code = NG/ML PROCAL) GLYCOSYLATED HEMOGLOBIN [id number] 12:06:00 Test Item Value Reference Range Interpretation Comments GLYCOSYLATED 10.4 % 4.8-5.9 H Any condition t hat HEMOGLOBIN (HA1C) shortens e rythocyte (test code = survival or dec reasesmean GLYHGB) erythrocyte age (e.g., recovery from a cute blood loss,hemolytic anemia) will falsely lo wer HGBA1c resultsregardle ss of the method used. H GBA1c results from [facility] HbSS, HbCC, and HbSc must be interpreted with cautiongiven th e pathological pr ocesses, including anemia,increase d red cell turnover, trans fusion requirements, thatadversely i mpact HGBA1c as a mar ker of long-term glycemiccontrol . Alternative for ms of testing such as fructosaminesho uld be considered for these patients. MEAN BLOOD GLUCOSE 252 MG/DL 70-110 H (test code = MBG) PROTHROMBIN [id number] 12:03:00 Test Item Value Reference Range Interpretation Comments PROTHROMBIN TIME 10.8 SECONDS 9.6-11.6 N PATIENT (test code = PTP) INTERNATIONAL NORMAL 1.0 0.8-1.1 N The INR is to be RATIO (test code = used only for INR) monitoring oral anticoagulantth erap y. INDICATION I NR VALUE ---- ---- ---- -------1. Prophylaxis, de ep venous thrombos is, including hig h risk surgery. 2.0 - 3.0 2. Prophylaxis, de ep venous thrombos is, hip surgery, treatment for d eep venous thrombosis or pulmonary prevention of systemic emboli sm in patients wit h valvular heart disease, atrial fibrillation, tissue heart va lve, or acute myocar dial infarction. 2.0 - 3 .0 3. Mechanical prosthesis hear t valves, recurrent syste brendon embolism. 3.0 - 4.5 PTT [id number] 12:03:00 Test Item Value Reference Range Interpretation Comments PTT ACTIVATED (test code = APTT) 24.1 SECONDS 22.0-33.0 N [id number] 12:03:00 Test Item Value Reference Range Interpretation Comments FIBRINOGEN (test code = FIB) 359 MG/DL 185-512 N [id number] 12:03:00 Test Item Value Reference Range Interpretation Comments D-DIMER (test 3.76 MG/L FEU 0-0.49 H Negative Pred ictive Value code = cutoff for DVT & PE: <0.50 DDIMER) mg/L FEUInterpr etation: A value of <0.50 mg/L FEU has a NegativePredi ctive Value in ruling out a DVT or PE diagnosis.A dg ue of 0.50 mg/L or greater is considered Positive.Positi ve result cannot be used for the diagnosis of DV T andPE without using o f standard radiological pr ocedures. COMPREHENSIVE METABOLIC [id number] 11:57:00 Test Item Value Reference Range Interpretation Comments SODIUM (test code = 137 MMOL/L 137-145 N NA) POTASSIUM (test code = 5.3 MMOL/L 3.5-5.1 H K) CHLORIDE (test code = 100 MMOL/L 98-107 N CL) CARBON DIOXIDE (test 24 MMOL/L 22-30 N code = CO2) ANION GAP (test code = 18 MMOL/L 14-24 N GAP) GLUCOSE (test code = 462 MG/DL 74-106 HH CALLED TO ADI DOSHI) READBACK ON 11/11 AT 1157 [address] BLOOD UREA NITROGEN 26 MG/DL 7-17 H (test code = BUN) GLOMERULAR FILTRATION 40 Report ing units: RATE (test code = GFR) ml/mi n/1.73 m2 (Modified MDRD Formula)Referen ce Range: > or = 6 0 ml/min/1.73 m2 CREATININE (test code 1.30 MG/DL 0.52-1.04 H = CREAT) TOTAL PROTEIN (test 7.7 G/DL 6.3-8.2 N code = PROT) ALBUMIN (test code = 4.4 G/DL 3.5-5.0 N ALB) CALCIUM (test code = 9.1 MG/DL 8.4-10.2 N CA) BILIRUBIN TOTAL (test 0.4 MG/DL 0.2-1.3 N code = BILT) SGOT/AST (test code = 78 UNITS/L 14-36 H AST) SGPT/ALT (test code = 92 UNITS/L 9-52 H ALT) ALKALINE PHOSPHATASE 106 UNITS/L 38-126 N (test code = ALKP) [id number] 11:57:00 Test Item Value Reference Range Interpretation Comments PHOSPHOROUS (test code = PHOS) 4.9 MG/DL 2.5-4.5 H [id number] 11:57:00 Test Item Value Reference Range Interpretation Comments MAGNESIUM (test code = MAG) 1.9 MG/DL 1.6-2.3 N [id number] 11:57:00 Test Item Value Reference Range Interpretation Comments TROPONIN-I (test code = TROPI) NG/ML 0.0-0.045 PROCALCITONIN (PCT)2019-09-04 11:57:00 Test Item Value Reference Range Interpretation Comments PROCALCITONIN (PCT) (test code = NG/ML PROCAL) LACTIC [id number] 11:55:00 Test Item Value Reference Range Interpretation Comments LACTIC ACID (test code = LACT) 2.4 MMOL/L 0.7-2.1 H COMPREHENSIVE METABOLIC [id number] 11:53:00 Test Item Value Reference Range Interpretation Comments SODIUM (test code = NA) 137 MMOL/L 137-145 N POTASSIUM (test code = 5.3 MMOL/L 3.5-5.1 H K) CHLORIDE (test code = 100 MMOL/L 98-107 N CL) CARBON DIOXIDE (test MMOL/L 22-30 code = CO2) GLUCOSE (test code = MG/DL 74-106 GLU) BLOOD UREA NITROGEN MG/DL 7-17 (test code = BUN) GLOMERULAR FILTRATION 40 Report ing units: RATE (test code = GFR) ml/mi n/1.73 m2 (Modified MDRD Formula)Referen ce Range: > or = 6 0 ml/min/1.73 m2 CREATININE (test code = 1.30 MG/DL 0.52-1.04 H CREAT) TOTAL PROTEIN (test G/DL 6.3-8.2 code = PROT) ALBUMIN (test code = 4.4 G/DL 3.5-5.0 N ALB) CALCIUM (test code = MG/DL 8.7-9.7 CA) BILIRUBIN TOTAL (test MG/DL 0.2-1.3 code = BILT) SGOT/AST (test code = UNITS/L 15-37 AST) SGPT/ALT (test code = UNITS/L 9-52 ALT) ALKALINE PHOSPHATASE UNITS/L 38-126 (test code = ALKP) [id number] 11:53:00 Test Item Value Reference Range Interpretation Comments PHOSPHOROUS (test code = PHOS) MG/DL 2.5-4.5 [id number] 11:53:00 Test Item Value Reference Range Interpretation Comments MAGNESIUM (test code = MAG) MG/DL 1.6-2.3 [id number] 11:53:00 Test Item Value Reference Range Interpretation Comments TROPONIN-I (test code = TROPI) NG/ML 0.0-0.045 PROCALCITONIN (PCT)2019-09-04 11:53:00 Test Item Value Reference Range Interpretation Comments PROCALCITONIN (PCT) (test code = NG/ML PROCAL) COMPREHENSIVE METABOLIC [id number] 11:51:00 Test Item Value Reference Range Interpretation Comments SODIUM (test code = NA) 137 MMOL/L 137-145 N POTASSIUM (test code = K) 5.3 MMOL/L 3.5-5.1 H CHLORIDE (test code = CL) 100 MMOL/L 98-107 N CARBON DIOXIDE (test code = CO2) MMOL/L 22-30 GLUCOSE (test code = GLU) MG/DL 74-106 BLOOD UREA NITROGEN (test code = MG/DL 7-17 BUN) GLOMERULAR FILTRATION RATE (test code = GFR) CREATININE (test code = CREAT) MG/DL 0.52-1.04 TOTAL PROTEIN (test code = PROT) G/DL 6.3-8.2 ALBUMIN (test code = ALB) 4.4 G/DL 3.5-5.0 N CALCIUM (test code = CA) MG/DL 8.7-9.7 BILIRUBIN TOTAL (test code = BILT) MG/DL 0.2-1.3 SGOT/AST (test code = AST) UNITS/L 15-37 SGPT/ALT (test code = ALT) UNITS/L 9-52 ALKALINE PHOSPHATASE (test code = UNITS/L 38-126 ALKP) [id number] 11:51:00 Test Item Value Reference Range Interpretation Comments PHOSPHOROUS (test code = PHOS) MG/DL 2.5-4.5 [id number] 11:51:00 Test Item Value Reference Range Interpretation Comments MAGNESIUM (test code = MAG) MG/DL 1.6-2.3 [id number] 11:51:00 Test Item Value Reference Range Interpretation Comments TROPONIN-I (test code = TROPI) NG/ML 0.0-0.045 PROCALCITONIN (PCT)2019-09-04 11:51:00 Test Item Value Reference Range Interpretation Comments PROCALCITONIN (PCT) (test code = NG/ML PROCAL) COMPREHENSIVE METABOLIC [id number] 11:50:00 Test Item Value Reference Range Interpretation Comments SODIUM (test code = NA) MMOL/L 137-145 POTASSIUM (test code = K) MMOL/L 3.5-5.1 CHLORIDE (test code = CL) 100 MMOL/L 98-107 N CARBON DIOXIDE (test code = CO2) MMOL/L 22-30 GLUCOSE (test code = GLU) MG/DL 74-106 BLOOD UREA NITROGEN (test code = MG/DL 7-17 BUN) GLOMERULAR FILTRATION RATE (test code = GFR) CREATININE (test code = CREAT) MG/DL 0.52-1.04 TOTAL PROTEIN (test code = PROT) G/DL 6.3-8.2 ALBUMIN (test code = ALB) G/DL 3.5-5.0 CALCIUM (test code = CA) MG/DL 8.7-9.7 BILIRUBIN TOTAL (test code = BILT) MG/DL 0.2-1.3 SGOT/AST (test code = AST) UNITS/L 15-37 SGPT/ALT (test code = ALT) UNITS/L 9-52 ALKALINE PHOSPHATASE (test code = UNITS/L 38-126 ALKP) [id number] 11:50:00 Test Item Value Reference Range Interpretation Comments PHOSPHOROUS (test code = PHOS) MG/DL 2.5-4.5 [id number] 11:50:00 Test Item Value Reference Range Interpretation Comments MAGNESIUM (test code = MAG) MG/DL 1.6-2.3 [id number] 11:50:00 Test Item Value Reference Range Interpretation Comments TROPONIN-I (test code = TROPI) NG/ML 0.0-0.045 PROCALCITONIN (PCT)2019-09-04 11:50:00 Test Item Value Reference Range Interpretation Comments PROCALCITONIN (PCT) (test code = NG/ML PROCAL) CBC W/AUTO [id number] 11:47:00 Test Item Value Reference Range Interpretation Comments WHITE BLOOD CELL (test code = 18.3 K/MM3 3.8-9.8 H WBC) RED BLOOD CELL (test code = 4.49 M/MM3 3.58-4.97 N RBC) HEMOGLOBIN (test code = HGB) 10.9 G/DL 11.2-14.9 L HEMATOCRIT (test code = HCT) 36.2 % 33.2-43.5 N MEAN CELL VOLUME (test code = 81 fL 80.7-99.1 N MCV) MEAN CELL HGB (test code = MCH) 24.3 pg 27.0-34.1 L MEAN CELL HGB CONCETRATION 30.1 % 32.2-35.7 L (test code = MCHC) RED CELL DISTRIBUTION WIDTH 17.9 % 12.1-15.2 H (test code = RDW) PLATELET COUNT (test code = 411 K/MM3 129-368 H PLT) MEAN PLATELET VOLUME (test code 10.0 fl 7.4-10.4 N = MPV) NEUTROPHIL % (test code = NT%) 88.1 % 43-75 H IMMATURE GRANULOCYTE % (test 1.5 % 0.0-2.0 N code = IG%) LYMPHOCYTE % (test code = LY%) 3.9 % 14-44 L MONOCYTE % (test code = MO%) 6.0 % 4-13 N EOSINOPHIL % (test code = EO%) 0.2 % 0-6 N BASOPHIL % (test code = BA%) 0.3 % 0-2 N NUCLEATED RBC % (test code = 0.0 % 0-1.0 N NRBC%) NEUTROPHIL # (test code = NT#) 16.12 K/mm3 2.0-7.6 H IMMATURE GRANULOCYTE # (test 0.28 x10 3/uL 0-0.03 H code = IG#) LYMPHOCYTE # (test code = LY#) 0.71 K/mm3 1.0-3.8 L MONOCYTE # (test code = MO#) 1.10 K/mm3 0.1-0.8 H EOSINOPHIL # (test code = EO#) 0.03 K/mm3 0.0-0.2 N BASOPHIL # (test code = BA#) 0.06 K/mm3 0.0-0.2 N NUCLEATED RBC # (test code = 0.00 K/mm3 0.0-0.1 N NRBC#) PLATELET [id number] 11:46:00 Test Item Value Reference Range Interpretation Comments PLATELET COUNT (test code = PLT) 426 K/MM3 129-368 H ISTAT BLOOD [id number] 11:04:00 Test Item Value Reference Range Interpretation Comments ISTAT-PH ARTERIAL (test code = 7.286 7.32-7.50 L PHAP) ISTAT-PCO2 ARTERIAL (test code = 48.7 MMHG 27.0-40.0 H PCO2AP) ISTAT-PO2 ARTERIAL (test code = 82 MMHG 80.0-100.0 N PO2AP) ISTAT-HCO3 ARTERIAL (test code = 23.2 MMOL/L 18-23 H HCO3AP) ISTAT-BASE EXCESS ARTERIAL (test -3 MMOL/L code = BEAP) ISTAT-SO2 ARTERIAL (test code = 94 % 95-98 L SO2AP) IONIZED CALCIUM (test code = 1.11 MMOL/L 1.12-1.24 L CAIABG) ISTAT-SODIUM (test code = NAP) 137 MMOL/L 137-144 N ISTAT-POTASSIUM (test code = KP) 5.3 MMOL/L 3.1-4.8 H ISTAT-GLUCOSE (test code = GLUP) 474 MG/DL 60-99 ISTAT BLOOD [id number] 11:04:00 Test Item Value Reference Range Interpretation Comments ISTAT-PH ARTERIAL (test code = 7.257 7.32-7.50 L PHAP) ISTAT-PCO2 ARTERIAL (test code = 52.7 MMHG 27.0-40.0 H PCO2AP) ISTAT-PO2 ARTERIAL (test code = 36 MMHG 80.0-100.0 LL PO2AP) ISTAT-HCO3 ARTERIAL (test code = 23.5 MMOL/L 18-23 H HCO3AP) ISTAT-BASE EXCESS ARTERIAL (test -4 MMOL/L code = BEAP) ISTAT-SO2 ARTERIAL (test code = 58 % 95-98 LL SO2AP) IONIZED CALCIUM (test code = 1.14 MMOL/L 1.12-1.24 N CAIABG) ISTAT-SODIUM (test code = NAP) 136 MMOL/L 137-144 L ISTAT-POTASSIUM (test code = KP) 5.4 MMOL/L 3.1-4.8 H ISTAT-GLUCOSE (test code = GLUP) 451 MG/DL 60-99 - XR CHEST [id number] 10:44:00 Patient Name: ZARIA CHEN Unit No: [id number] EXAMS: CPT CODE: [id number] XR CHEST 1V [id number] EXAM: - XR CHEST 1V Location code:C3 HISTORY: Fol low-up intubated patient COMPARISON: 09/04/2019 FINDINGS: Frontal view of the chest is submitted. Tip of endotracheal tube appears 3.9 cm above the pedro, likely unchanged and may be positional. A new inferior approach catheter is seen and terminates in the region of the distal left pulmonary artery . Stable enlarged cardiomediastinal silhouette. Bilateral hazy airspace opacities, right greater than left are again noted without significant change. No large effusion or appreciable pneumothorax identified. Mild, consolidation of changes of the spine. No acute osseous pathology. IMPRESSION 1. Stable bilateral hazy diffuse airspace opacities, right greater than left without new effusion or appreciable pneumothorax. 2. New inferior approach catheter, correlate clinically for catheter external to the patient. If this represents an inferior [place] [facility] catheter its tip is suboptimally positioned in the distal left pulmonary artery and should be retracted. at 1044 Reported and signed by: Sonia Mitchell MD CC: [facility] IS[facility]; Amos Conway MD Technologist: Winston Pressley (RT) (R) Transcrpt Date/Tm/Trnsp: 09/04/2019 (1044) [email or web address] Orig Print D/T: S: 09/04/2019 (1047) [facility] NAME: ZARIA CHEN [id number] [address] PHYS: [place] [address] : 1940 AGE: 79 SEX: F LOC: Z.I01 A PHONE #: [phone] EXAM DATE: 09/04/2019 STATUS: ADM IN FAX #: [phone] RADIOLOGY NO: PAGE 1 Signed ReportARTERIAL BLOOD [id number] 10:18:00 Test Item Value Reference Range Interpretation Comments ARTERIAL BLOOD GAS PH (test code 7.32 mmHg 7.35-7.45 L = PHA) ARTERIAL BLOOD GAS PCO2 (test 42.6 mmHg 35.0-45.0 N code = PCO2A) ARTERIAL BLOOD GAS PO2 (test 119.4 mmol/L 80.0-100.0 H code = PO2A) BICARBONATE TOTAL HCO3 (test 21.6 mmol/L 20.0-26.0 N code = HCO3) BASE EXCESS (test code = DONNA) -4.3 mmol/L -3.0-3.0 L ABG O2 SATURATION (test code = 98.1 % 95.0-100.0 N SATA) ABG DELIVERY (test code = JOSE) VENT ABG VENT MODE (test code = A/C MODEA) ABG VENT RESP RATE (test code = 20.0 /MIN RRA) ABG TIDAL VOLUME (test code = 400 ml TVA) ABG PEEP (test code = PEEPA) 10.0 cmH2O ABG TEMPERATURE (test code = 37.0 C >37 TEMPA) ABG SITE (test code = SITEA) RB ALLENS TEST (test code = ALLENS) NA CHECK FIO2 (test code = COHBGFFIO2) 100 % - XR CHEST [id number] 08:29:00 Patient Name: ZARIA CHEN Unit No: [id number] EXAMS: CPT CODE: [id number] XR CHEST 1V 13883 EXAMINATION: - XR CHEST 1V. LOCATION: R16. HISTORY: S/P INTUBATION. COMPARISON: None. FINDINGS: Examinationis limited due to portable supine technique and patient body habitus.. Cardiac silhouette/Mediastinal contour: Enlargement of cardiac silhouette. Atherosclerotic calcification of aortic arch. Lungs: Bilateral hazy diffuse airspace opacities, right greater than left. No large pleural effusion. Osseous Structures: Degenerative changes of thoracic spine. Additional Findings: ET tube is 4.1 cm above pedro. IMPRESSION: Bilateral hazy diffuse airspace opacity, right greater than left, may represent asymmetric pulmonary edema. Recommend continued follow-up. at 0829 Reported and signed by: Madonna Bales CC: Amos Conway MD Technologist: Jose Francis (RT)(R) Transcrpt Date/Tm/Trnsp: 09/04/2019 (0829) [email or web address] Orig Print D/T: S: 09/04/2019 (0833) [facility] NAME: ZARIA CHEN [id number] [address] PHYS: [place] [address] : 1940 AGE: 79 SEX: F LOC: MO PHONE #: [phone] EXAM DATE: 09/04/2019 STATUS: [facility] [place] FAX #: [phone] RADIOLOGY NO: PAGE 1 Signed ReportPOC ARTERIAL BLOOD [id number] 07:48:00 Test Item Value Reference Range Interpretation Comments POC ARTERIAL BLOOD GAS PH 7.156 7.35-7.45 LL (test code = POCPHA) POC ARTERIAL BLOOD GAS PCO2 55.0 mmHg 35.0-45.0 HH (test code = DSPRAW7U) POC ARTERIAL BLOOD GAS PO2 91 75.0-100.0 N (test code = HBAFY6A) POC HCO3 ARTERIAL (test code 19.4 MMOL/L 20.0-26.0 L = JXRRSK4S) POC BASE EXCESS (test code = -9.0 MMOL/L -3.0-3.0 L POCBEA) POC O2 SATURATION (test code 94 % 92.0-98.5 N = POCO2S) FIO2 (test code = FIO2A) 100 % 21-100 N ABG DELIVERY (test code = Vent JOSE) ABG VENT MODE (test code = CMV MODEA) ABG VENT RESP RATE (test code 16 /MIN = RRA) ABG TIDAL VOLUME (test code = 400 ml TVA) ABG PEEP (test code = PEEPA) 10 cmH2O ABG SITE (test code = SITEA) R Brachial ALLENS TEST (test code = N/A CHECK MD Ntfd/RBV~ ALLENS) POC LACTIC ACID (test code = 4.60 MMOL/L 0.4-2.0 HH POCLAC) BASIC METABOLIC [id number] 06:58:00 Test Item Value Reference Range Interpretation Comments SODIUM (test code = 138 MMOL/L 137-145 N NA) POTASSIUM (test code = 4.5 MMOL/L 3.5-5.1 N K) CHLORIDE (test code = 103 MMOL/L 98-107 N CL) CARBON DIOXIDE (test 25 MMOL/L 22-30 N code = CO2) ANION GAP (test code = 15 MMOL/L 14-24 N GAP) GLUCOSE (test code = 293 MG/DL 74-106 H GLU) BLOOD UREA NITROGEN 24 MG/DL 7-17 H (test code = BUN) GLOMERULAR FILTRATION 48 Report ing units: RATE (test code = GFR) ml/mi n/1.73 m2 (Modified MDRD Formula)Referen ce Range: > or = 6 0 ml/min/1.73 m2 CREATININE (test code 1.10 MG/DL 0.52-1.04 H = CREAT) CALCIUM (test code = 9.4 MG/DL 8.4-10.2 N CA) LIPID PROFILE (CORONARY RISK)2019-09-04 06:58:00 Test Item Value Reference Range Interpretation Comments TRIGLYCERIDES (test 167 MG/DL TRIGLYCE RIDES code = TRIG) REFERENCE RANGE:Normal: < 150 mg/dLBorderline High: 150-199 mg/dLHi gh: 200-499 mg/dLVe ry High: >=500 mg/ dL CHOLESTEROL (test code 195 MG/DL <200 = CHOL) HDL CHOLESTEROL (test 61 MG/DL 40-59 H code = HDL) LIPOPROTEIN LDL (test 109 MG/DL 0-99 H code = LDL) OPTIMAL........ .<100 mg/dLNEAR OPTIMAL/ABOVE OPTIMAL........ .100-12 9 mg/dL BORDERLINE HIGH.........13 0-159 mg/dL HIGH.........16 0-189 mg/dL VERY HIGH...... ...>/= 190 mg/dL [id number] 06:58:00 Test Item Value Reference Range Interpretation Comments MAGNESIUM (test code = MAG) 1.7 MG/DL 1.6-2.3 N BASIC METABOLIC [id number] 06:48:00 Test Item Value Reference Range Interpretation Comments SODIUM (test code = 138 MMOL/L 137-145 N NA) POTASSIUM (test code = 4.5 MMOL/L 3.5-5.1 N K) CHLORIDE (test code = 103 MMOL/L 98-107 N CL) CARBON DIOXIDE (test 25 MMOL/L 22-30 N code = CO2) ANION GAP (test code = 15 MMOL/L 14-24 N GAP) GLUCOSE (test code = 293 MG/DL 74-106 H GLU) BLOOD UREA NITROGEN 24 MG/DL 7-17 H (test code = BUN) GLOMERULAR FILTRATION 48 Report ing units: RATE (test code = GFR) ml/mi n/1.73 m2 (Modified MDRD Formula)Referen ce Range: > or = 6 0 ml/min/1.73 m2 CREATININE (test code 1.10 MG/DL 0.52-1.04 H = CREAT) CALCIUM (test code = 9.4 MG/DL 8.4-10.2 N CA) LIPID PROFILE (CORONARY RISK)2019-09-04 06:48:00 Test Item Value Reference Range Interpretation Comments TRIGLYCERIDES (test 167 MG/DL TRIGLYCE RIDES code = TRIG) REFERENCE RANGE:Normal: < 150 mg/dLBorderline High: 150-199 mg/dLHi gh: 200-499 mg/dLVe ry High: >=500 mg/ dL CHOLESTEROL (test code 195 MG/DL <200 = CHOL) HDL CHOLESTEROL (test 61 MG/DL 40-59 H code = HDL) LIPOPROTEIN LDL (test MG/DL 0-99 code = LDL) [id number] 06:48:00 Test Item Value Reference Range Interpretation Comments MAGNESIUM (test code = MAG) 1.7 MG/DL 1.6-2.3 N BASIC METABOLIC [id number] 06:47:00 Test Item Value Reference Range Interpretation Comments SODIUM (test code = 138 MMOL/L 137-145 N NA) POTASSIUM (test code = 4.5 MMOL/L 3.5-5.1 N K) CHLORIDE (test code = 103 MMOL/L 98-107 N CL) CARBON DIOXIDE (test 25 MMOL/L 22-30 N code = CO2) ANION GAP (test code = 15 MMOL/L 14-24 N GAP) GLUCOSE (test code = 293 MG/DL 74-106 H GLU) BLOOD UREA NITROGEN 24 MG/DL 7-17 H (test code = BUN) GLOMERULAR FILTRATION 48 Report ing units: RATE (test code = GFR) ml/mi n/1.73 m2 (Modified MDRD Formula)Referen ce Range: > or = 6 0 ml/min/1.73 m2 CREATININE (test code 1.10 MG/DL 0.52-1.04 H = CREAT) CALCIUM (test code = 9.4 MG/DL 8.4-10.2 N CA) LIPID PROFILE (CORONARY RISK)2019-09-04 06:47:00 Test Item Value Reference Range Interpretation Comments TRIGLYCERIDES (test 167 MG/DL TRIGLYCE RIDES code = TRIG) REFERENCE RANGE:Normal: < 150 mg/dLBorderline High: 150-199 mg/dLHi gh: 200-499 mg/dLVe ry High: >=500 mg/ dL CHOLESTEROL (test code 195 MG/DL <200 = CHOL) HDL CHOLESTEROL (test MG/DL 40-59 code = HDL) LIPOPROTEIN LDL (test MG/DL 0-99 code = LDL) [id number] 06:47:00 Test Item Value Reference Range Interpretation Comments MAGNESIUM (test code = MAG) 1.7 MG/DL 1.6-2.3 N BASIC METABOLIC [id number] 06:46:00 Test Item Value Reference Range Interpretation Comments SODIUM (test code = 138 MMOL/L 137-145 N NA) POTASSIUM (test code = 4.5 MMOL/L 3.5-5.1 N K) CHLORIDE (test code = 103 MMOL/L 98-107 N CL) CARBON DIOXIDE (test MMOL/L 22-30 code = CO2) GLUCOSE (test code = MG/DL 74-106 GLU) BLOOD UREA NITROGEN MG/DL 7-17 (test code = BUN) GLOMERULAR FILTRATION 48 Report ing units: RATE (test code = GFR) ml/mi n/1.73 m2 (Modified MDRD Formula)Referen ce Range: > or = 6 0 ml/min/1.73 m2 CREATININE (test code 1.10 MG/DL 0.52-1.04 H = CREAT) CALCIUM (test code = MG/DL 8.7-9.7 CA) LIPID PROFILE (CORONARY RISK)2019-09-04 06:46:00 Test Item Value Reference Range Interpretation Comments TRIGLYCERIDES (test code = TRIG) MG/DL CHOLESTEROL (test code = CHOL) 195 MG/DL <200 HDL CHOLESTEROL (test code = HDL) MG/DL 40-59 LIPOPROTEIN LDL (test code = LDL) MG/DL 0-99 [id number] 06:46:00 Test Item Value Reference Range Interpretation Comments MAGNESIUM (test code = MAG) MG/DL 1.6-2.3 BASIC METABOLIC [id number] 06:46:00 Test Item Value Reference Range Interpretation Comments SODIUM (test code = 138 MMOL/L 137-145 N NA) POTASSIUM (test code = 4.5 MMOL/L 3.5-5.1 N K) CHLORIDE (test code = 103 MMOL/L 98-107 N CL) CARBON DIOXIDE (test 25 MMOL/L 22-30 N code = CO2) ANION GAP (test code = 15 MMOL/L 14-24 N GAP) GLUCOSE (test code = 293 MG/DL 74-106 H GLU) BLOOD UREA NITROGEN 24 MG/DL 7-17 H (test code = BUN) GLOMERULAR FILTRATION 48 Report ing units: RATE (test code = GFR) ml/mi n/1.73 m2 (Modified MDRD Formula)Referen ce Range: > or = 6 0 ml/min/1.73 m2 CREATININE (test code 1.10 MG/DL 0.52-1.04 H = CREAT) CALCIUM (test code = MG/DL 8.7-9.7 CA) LIPID PROFILE (CORONARY RISK)2019-09-04 06:46:00 Test Item Value Reference Range Interpretation Comments TRIGLYCERIDES (test code = TRIG) MG/DL CHOLESTEROL (test code = CHOL) 195 MG/DL <200 HDL CHOLESTEROL (test code = HDL) MG/DL 40-59 LIPOPROTEIN LDL (test code = LDL) MG/DL 0-99 [id number] 06:46:00 Test Item Value Reference Range Interpretation Comments MAGNESIUM (test code = MAG) MG/DL 1.6-2.3 BASIC METABOLIC [id number] 06:44:00 Test Item Value Reference Range Interpretation Comments SODIUM (test code = NA) 138 MMOL/L 137-145 N POTASSIUM (test code = K) 4.5 MMOL/L 3.5-5.1 N CHLORIDE (test code = CL) 103 MMOL/L 98-107 N CARBON DIOXIDE (test code = CO2) MMOL/L 22-30 GLUCOSE (test code = GLU) MG/DL 74-106 BLOOD UREA NITROGEN (test code = MG/DL 7-17 BUN) GLOMERULAR FILTRATION RATE (test code = GFR) CREATININE (test code = CREAT) MG/DL 0.52-1.04 CALCIUM (test code = CA) MG/DL 8.7-9.7 LIPID PROFILE (CORONARY RISK)2019-09-04 06:44:00 Test Item Value Reference Range Interpretation Comments TRIGLYCERIDES (test code = TRIG) MG/DL CHOLESTEROL (test code = CHOL) MG/DL <200 HDL CHOLESTEROL (test code = HDL) MG/DL 40-59 LIPOPROTEIN LDL (test code = LDL) MG/DL 0-99 [id number] 06:44:00 Test Item Value Reference Range Interpretation Comments MAGNESIUM (test code = MAG) MG/DL 1.6-2.3 BASIC METABOLIC [id number] 06:43:00 Test Item Value Reference Range Interpretation Comments SODIUM (test code = NA) MMOL/L 137-145 POTASSIUM (test code = K) MMOL/L 3.5-5.1 CHLORIDE (test code = CL) 103 MMOL/L 98-107 N CARBON DIOXIDE (test code = CO2) MMOL/L 22-30 GLUCOSE (test code = GLU) MG/DL 74-106 BLOOD UREA NITROGEN (test code = MG/DL 7-17 BUN) GLOMERULAR FILTRATION RATE (test code = GFR) CREATININE (test code = CREAT) MG/DL 0.52-1.04 CALCIUM (test code = CA) MG/DL 8.7-9.7 LIPID PROFILE (CORONARY RISK)2019-09-04 06:43:00 Test Item Value Reference Range Interpretation Comments TRIGLYCERIDES (test code = TRIG) MG/DL CHOLESTEROL (test code = CHOL) MG/DL <200 HDL CHOLESTEROL (test code = HDL) MG/DL 40-59 LIPOPROTEIN LDL (test code = LDL) MG/DL 0-99 [id number] 06:43:00 Test Item Value Reference Range Interpretation Comments MAGNESIUM (test code = MAG) MG/DL 1.6-2.3 PROTHROMBIN [id number] 06:42:00 Test Item Value Reference Range Interpretation Comments PROTHROMBIN TIME 10.7 SECONDS 9.6-11.6 N PATIENT (test code = PTP) INTERNATIONAL NORMAL 1.0 0.8-1.1 N The INR is to be RATIO (test code = used only for INR) monitoring oral anticoagulantth erap y. INDICATION I NR VALUE ---- ---- ---- -------1. Prophylaxis, de ep venous thrombos is, including hig h risk surgery. 2.0 - 3.0 2. Prophylaxis, de ep venous thrombos is, hip surgery, treatment for d eep venous thrombosis or pulmonary prevention of systemic emboli sm in patients wit h valvular heart disease, atrial fibrillation, tissue heart va lve, or acute myocar dial infarction. 2.0 - 3 .0 3. Mechanical prosthesis hear t valves, recurrent syste brendon embolism. 3.0 - 4.5 PTT [id number] 06:42:00 Test Item Value Reference Range Interpretation Comments PTT ACTIVATED (test code = APTT) 25.3 SECONDS 22.0-33.0 N CBC W/AUTO [id number] 06:32:00 Test Item Value Reference Range Interpretation Comments WHITE BLOOD CELL (test code = 11.4 K/MM3 3.8-9.8 H WBC) RED BLOOD CELL (test code = 4.47 M/MM3 3.58-4.97 N RBC) HEMOGLOBIN (test code = HGB) 10.8 G/DL 11.2-14.9 L HEMATOCRIT (test code = HCT) 35.9 % 33.2-43.5 N MEAN CELL VOLUME (test code = 80 fL 80.7-99.1 L MCV) MEAN CELL HGB (test code = MCH) 24.2 pg 27.0-34.1 L MEAN CELL HGB CONCETRATION 30.1 % 32.2-35.7 L (test code = MCHC) RED CELL DISTRIBUTION WIDTH 18.1 % 12.1-15.2 H (test code = RDW) PLATELET COUNT (test code = 405 K/MM3 129-368 H PLT) MEAN PLATELET VOLUME (test code 9.7 fl 7.4-10.4 N = MPV) NEUTROPHIL % (test code = NT%) 76.8 % 43-75 H IMMATURE GRANULOCYTE % (test 0.8 % 0.0-2.0 N code = IG%) LYMPHOCYTE % (test code = LY%) 11.2 % 14-44 L MONOCYTE % (test code = MO%) 6.9 % 4-13 N EOSINOPHIL % (test code = EO%) 3.9 % 0-6 N BASOPHIL % (test code = BA%) 0.4 % 0-2 N NUCLEATED RBC % (test code = 0.0 % 0-1.0 N NRBC%) NEUTROPHIL # (test code = NT#) 8.76 K/mm3 2.0-7.6 H IMMATURE GRANULOCYTE # (test 0.09 x10 3/uL 0-0.03 H code = IG#) LYMPHOCYTE # (test code = LY#) 1.28 K/mm3 1.0-3.8 N MONOCYTE # (test code = MO#) 0.79 K/mm3 0.1-0.8 N EOSINOPHIL # (test code = EO#) 0.45 K/mm3 0.0-0.2 H BASOPHIL # (test code = BA#) 0.05 K/mm3 0.0-0.2 N NUCLEATED RBC # (test code = 0.00 K/mm3 0.0-0.1 N NRBC#)
--- NOTE | 2020-10-11 14:16 | RAD REPORT ---
EXAM DESCRIPTION: RAD - Myelography Lumbar - 10/11/2020 1:40 pm CLINICAL HISTORY: Back pain, spinal stenosis, radiculopathy COMPARISON: None. TECHNIQUE: Patient presents for fluoroscopic guided lumbar myelogram and postmyelogram CT lumbar spi ne imaging. The procedure, risks and alternatives to the procedure were discussed with the patient in detail. Aft er answering all questions, both oral and written consent were obtained. Time-out procedure was perfo rmed. Patient had no contraindicated allergy. Patient was off aspirin for 2 weeks prior to the examin ation. The patient was placed in an oblique prone position on the fluoroscopic table. The skin of the lower back was prepped and draped in the usual sterile fashion. After anesthetizing the skin and deeper sof t tissues with 1% lidocaine, a 22 gauge needle was advanced into the thecal sac at the L4 level. Intrathecal placement was confirmed. Clear colorless CSF was observed. Approximately 10 mL of Isovue M 200 contrast material was instilled into the thecal sac. Needle was withdrawn and a bandage placed over the puncture site. Sterile bandage was placed to the puncture site. Multiple myelogram images of the lumbar spine were obtained. The patient tolerated the procedure well without immediate complications. Post-procedure care and pre caution instructions were discussed with the patient before the LP procedure. Patient was transferred to the CT suite for pending imaging followed by postprocedure observation in the same day surgical a ganesh. IMPRESSION: Successful lumbar myelogram procedure as detailed. Findings from the myelogram are incor porated into the CT lumbar spine report.
[2020-10-11] MEDS ORDERED: ACETAMINOPHEN 500 MG TAB ONE (14:19)
[2020-10-11 16:56] VITALS: BMI 42.5
[2020-10-11 17:04] VITALS: BP 133/44; TEMP 97; O2SAT 96
--- NOTE | 2020-10-12 09:05 | RAD REPORT ---
EXAM DESCRIPTION: CT - Spine Lumbar Wo Con - 10/11/2020 1:19 pm CLINICAL HISTORY: LOW BACK PAIN, MYELOGRAM, spinal stenosis, lower extremity radiculopathy COMPARISON: Lumbar myelogram imaging same date TECHNIQUE: Thin section 2 mm axial imaging of the lumbar spine was performed. Sagittal and coronal reconstruction images were generated and reviewed. All CT scans are performed using dose optimization technique as appropriate and may include automated exposure control or mA/KV adjustment according to patient size. FINDINGS: Lumbar bodies are normal in height. There is a mild left convex degenerative scoliotic cur vature in the lumbar spine with the apex at the L2-3 level. Very slight anterior subluxation of L4 on L5 noted. Vertebral bodies maintain alignment otherwise. Prominent right lateral endplate spurring a nd disc bulge noted at L2-3. Conus terminates at the inferior L1 level. There is no clumping or thickening of the cauda equina. Dense nonaneurysmal aortoiliac calcifications. No perispinal mass or abnormal paraspinal lymphadenopa thy. Vertebral bodies show no lytic, sclerotic or expansile bony destructive process. Sclerotic kidd es are present related to the L2-3 disc disease subsequently detailed. T11-12 level: No significant finding T12-L1 level: No significant finding L1-2 level: Minimal facet joint degenerative change. No canal or foramen stenosis. L2-3 level: Significant loss in disc height noted right lateral margin with degenerative gas. Mild br oad-based bulging of disc material seen across the central canal and into each exit foramen. There is associated endplate spurring. Facet joint degenerative changes are present. Right bony foraminal enc roachment present. Disc bulge further narrows the right exit foramen. Disc bulge and endplate spurrin g in the central canal do not cause spinal stenosis. No significant left foraminal stenosis. L3-4 level: No central spinal stenosis. Minimal disc bulge across the central canal. Foraminal disc b ulge changes are present but minimal in degree. No significant foraminal stenosis. Facet degenerative change mild. L4-5 level: Advanced degenerative disc disease present with degenerative gas in the disc space. Protr usion of disc material is seen across the central canal and into each exit foramen. This disc bulge a nd pseudo disc bulge change flattens the thecal sac. Posterior ligamentous thickening present. Centra l canal is 8.5 mm. Facet joint degenerative changes are present. Left greater than right foraminal en croachment changes are present. The bony hypertrophy also causes bony stenosis of the L5 lateral rece sses. L5-S1 level: Prominent bulging of disc material is seen in the central canal. This contacts but does not displace the S1 nerve root sleeves. No central spinal stenosis. Disc bulge is more prominent in t he left exit foramen. There is facet hypertrophy. Left foraminal encroachment is present. No signific ant right foraminal encroachment. IMPRESSION: L4-5 spinal stenosis to 8.5 mm due to protruding disc material, posterior ligamentous th ickening and facet joint hypertrophy. These changes also contribute to bilateral L5 lateral recess st enosis. L4-5 left greater than right foraminal stenosis from the same combination of disc, bone and ligament degenerative change. L5-S1 left foraminal encroachment from facet hypertrophy, endplate spurring and disc bulge. Additional degenerative change in the spine noted not causing significant canal or foramen stenoses. Conus terminates at the L1 level. No clumping or thickening of the cauda equina. No arachnoiditis fin dings.
== END 2020-10-11 15:40 | disposition home or self-care (01) ==
LOC: DS 10:34
PROVIDERS: ATTEND Specialist
DX: M54.5 Low back pain (principal); M47.26 Other spondylosis with radiculopathy, lumbar region; M54.16 Radiculopathy, lumbar region
CPT/HCPCS: 72131; 62304; Q9966

== ENCOUNTER 2023-05-06 17:05 | Inpatient (IN) | payer BC, OTHER ==
--- OUTSIDE RECORDS SUMMARY | 2023-05-06 21:43 | XMS REPORT | Clinical Summary ---
:1940 Author Organization [facility] MD [facility] Address [address] [place] [address] Care Team Providers Name Role Phone Mike Harding MD Primary Care Provider Natasha Payne RD Unavailable Unavailable AdDorcas hernandez MD Unavailable Allergies Active Allergy Reactions Severity Noted Date Comments Latex, Natural Rubber Swelling 05/12/2021 Medications Medication Sig Dispensed Refills Start Date End Date Status aspirin (ASPIR-81 0 09/13/2019 A ctive ORAL) atorvastatin Take 1 tablet 0 10/12/2020 Ac tive (LIPITOR) 20 mg (20 mg) by tablet mouth. cyanocobalamin, 0 01/08/2021 Act israel vitamin B-12, 1,000 mcg/15 mL liqd furosemide (LASIX) Take 1 tablet 0 07/28/2018 Active 80 mg tablet (80 mg) by mouth twice daily. insulin aspart Inject 8-12 0 09/13/2019 Ac tive U-100 (NovoLOG) 100 Units under unit/mL (3 mL) the skin. insulin pen insulin 0 09/13/2019 Active glargine,hum.rec.an log (BASAGLAR KWIKPEN U-100 INSULIN SUBCUTANEOUS) latanoprost PLACE 1 GTT IN 0 10/18/2017 Ac tive (XALATAN) 0.005% OU HS. ophthalmic solution losartan (COZAAR) Take 1 tablet 0 12/23/2020 Active 100 mg tablet (100 mg) by mouth. magnesium 250 mg Take 1 tablet 0 Active tab by mouth. metoprolol tartrate Take 1 tablet 0 01/15/2021 Active (LOPRESSOR) 50 mg (50 mg) by tablet mouth. multivit with Chew 1 tablet. 0 A ctive min-folic acid (Centrum Adult 50 Fresh-Fruity) 120 mcg chew omeprazole TAKE 1 CAPSULE 0 01/15/2021 Act israel (PriLOSEC) 40 MG BY MOUTH EVERY capsule DAY 30 MINUTES BEFORE BREAKFAST spironolactone 0 08/25/2017 Acti ve (ALDACTONE) 25 mg tablet amLODIPine TAKE 1 TABLET 0 07/03/2021 Acti ve (NORVASC) 5 mg BY MOUTH TWICE tablet DAILY OneTouch Verio test TEST FOUR 0 06/19/2021 Active strips strp TIMES DAILY FreeStyle Paco 14 APPLY 1 SENSOR 0 08/09/2021 Active Day Sensor kit TO SKIN EVERY 14 DAYS isosorbide TAKE 1 TABLET 0 08/17/2021 Acti ve mononitrate (IMDUR) BY MOUTH DAILY 30 mg 24 hr tablet FOR CORONARY ARTERY DISEASE OneTouch Delica USE FOUR TIMES 0 06/19/2021 Active Plus Lancet 33 DAILY gauge misc metoprolol TAKE 1 TABLET 0 08/15/2021 Acti ve succinate (TOPROL BY MOUTH TWICE XL) 25 mg 24 hr DAILY tablet BD Adela 2nd Gen Pen USE 0 08/17/2021 Active Needle 32 gauge x DIRECTED 4 TO 5/32" ndle 5 TIMES A DAY acetaminophen Take 500 mg by 0 A ctive (TYLENOL) 650 MG CR mouth. tablet thyroid (ARMOUR Take 1 tablet 0 07/28/2018 06/19/20 Discontinued THYROID) 120 mg tab by mouth. 22 (Therapy tablet completed) insulin aspart 0 06/19/20 Disco ntinued U-100 (NovoLOG 22 (Dupl icate Flexpen U-100 order) Insulin) 100 unit/mL (3 mL) insulin pen levothyroxine Take 1 tablet 90 tablet 1 02/20/2022 06/19/20 D iscontinued (Synthroid) 50 mcg (50 mcg) by 22 tabletIndications: mouth daily. Other specified anemia levothyroxine Take 1 tablet 90 tablet 1 06/19/2022 10/03/20 D iscontinued (Synthroid) 100 mcg (100 mcg) by 22 tabletIndications: mouth daily. Other specified anemia Active Problems Problem Noted Date Other specified anemia 01/18/2022 H/O: hysterectomy 01/18/2022 Malignant neoplasm of endometrium 10/25/2021 Cancer Staging: Pathologic stage from 10/2022: Stage IA (Primary) - Signed by Mike Harding MD on 12/20/2021 Chronic kidney disease 08/30/2021 BMI 45 to 49.9 03/02/2021 Type 2 diabetes mellitus 03/01/2021 Hypertension 03/01/2021 History of cardiac arrest 03/01/2021 Hypothyroidism 03/01/2021 Hyperlipidemia 03/01/2021 Coronary arteriosclerosis 03/01/2021 Dyspnea on exertion 03/01/2021 Heart failure with normal ejection fraction 03/01/2021 Obesity 03/01/2021 Obstructive sleep apnea syndrome 03/01/2021 Aortic valve stenosis 03/01/2021 Encounters Date Type Specialty Care Team Description 01/23/2023 Follow-Up Gynecology Mike Harding MD Malignant neoplasm of endometrium (Prima ry Dx); Leah De Leon, Obesity, not otherwise specified PA 01/23/2023 Travel 10/03/2022 Office Visit Gynecology Mike Harding MD Maligna nt neoplasm of endometrium 10/03/2022 Travel 06/20/2022 Office Visit Gynecology Mike Harding MD Malignant neoplasm of Leah De Leon, endometri um PA 06/20/2022 Travel 06/05/2022 Telemedicine Oncology Anali Cunningham MD Other spe cified anemia (Primary Dx); Other specified hypothyroidism after 05/06/2022 Immunizations Name Administration Dates Next Due Moderna SARS-CoV-2 Vaccination 07/31/2021 Surgical History Surgery Date Site/Laterality Comments APPENDECTOMY 11/24/1951 - 11/23/1952 CHOLECYSTECTOMY 11/24/2001 - 11/23/2002 KNEE ARTHROPLASTY 11/24/2012 - 11/23/2013 Right SECTION, CLASSIC HYSTERECTOMY Nov 2021 TONSILLECTOMY Medical History Medical History Date Comments Heart failure 2019 Hypertension 1999 Hyperlipidemia 2000 Neuropathy 2017 Gastric reflux 1980 Gallstone 1998 Gall bladder removal 2001 Arthritis 1999 Diabetes mellitus 2000 Endometrium thickened 03/01/2021 Postmenopausal bleeding 08/30/2021 Hypothyroidism 2000 Adenocarcinoma of uterus Nov 2021 Chronic anemia Family History Medical History Relation Name Comments Lung cancer Brother Homer Ulloa lung cancer , smoker Age 63, 2002 Relation Name Status Comments Brother Homer Ulloa Social History Tobacco Use Types Packs/Day Years Used Date Smoking Tobacco: Former Cigarettes 06/1960 - 1980 Smokeless Tobacco: Never Tobacco Cessation: Counseling Given: No Alcohol Use Standard Drinks/Week Comments Yes 0 (1 standard drink = 0.6 oz pure alcoho l) social Sex Assigned at Date Recorded Female 02/23/2021 9:19 AM CDT Job Start Date Occupation Industry Not on file Not on file Not on file Travel History Travel Start Travel End [place] 2022 06/07/2022 Obstetrics History Para Term AB IAB SAB Ectopic Multiple Living Live Births 2 2 2 Date Outcome GA Total Labor/2nd/3rd Weight Sex Delivery Anes PTL Yue A 1 A5 Name Clin Labor Para Para Comments Menarche: age 14 Last PAP:2020 Parity: age 20 HRT:denies OCP: denies Menopause:Natural Fertility Tx: denies Breastfeed:denies Last Filed Vital Signs Vital Sign Reading Time Taken Comments Blood Pressure 147/59 01/23/2023 1:03 PM ELECTRIC ARC FURNACE OPERATOR Pulse 62 01/23/2023 1:03 PM ELECTRIC ARC FURNACE OPERATOR Temperature 36.6 C (97.9 F) 01/23/2023 1:03 PM ELECTRIC ARC FURNACE OPERATOR Respiratory Rate 16 01/23/2023 1:03 PM ELECTRIC ARC FURNACE OPERATOR Oxygen Saturation 93% 01/23/2023 1:03 PM ELECTRIC ARC FURNACE OPERATOR Inhaled Oxygen Concentration - - Weight 106.5 kg (234 lb 12.6 oz) 01/23/2023 1:03 PM ELECTRIC ARC FURNACE OPERATOR Height - - Body Mass Index 41.59 09/06/2021 1:14 PM CDT Plan of Treatment Date Type Specialty Care Team Description 06/12/2023 Follow-Up Gynecology Mike Harding MD [address] [place], [place] [id number] (Wo rk) Health Maintenance Due Date Last Done Comments COVID-19 Vaccination (6 - Moderna 12/20/2022 08/20/2022, , series) 07/31/2021, Additional history exists Medical Devices Implanted Type Area Neuropsychology Director Device Shelf Model / Identifier Expiration Serial / Date Lot Rt Knee Metalware Right: Replacement Knee [employer] Callie Cardiac Stents Stent BUTLER / Implanted: Qty: 3 VASCULAR / XIENCE Callie [id number] Description: [employer] Sier ra cardiac stents x3 Medtronic Core Valve-05/10/2021 [employer] [id number] / Implanted: 05/10/2021 (Quantity not on file) [id number] / Description: Nonclinical testing and mod indra has demonstrated that the bioprosthesis is magnetic resonance conditional. I can be scanned safely under the following conditions: Static mag field of 1.5T and 3.0T, sp atial gradient field of <2500gauss Fernanda l operating mode only with a maximum whole body SASRof 2.0w/kg for 15 min as read from equipment monitor. Approved by Dr. Smith. Results Not on fileafter 05/06/2022 Insurance Payer Benefit Plan / Subscriber ID Effective Dates Phone Addre ss Type Group [place] PPO POS [id number] 2020-Present [address] [place] [address] Advance Directives Type Date Recorded Patient Effervescent Salts Compounder Explanati on Advance Directives: 09/29/2019 Medical Patricia r of Hand Wrapper Operator Medical Power of Hand Wrapper Operator Care Teams Wax Machine Operator Relationship Specialty Start Date End Date Mike Harding, PCP - General Gynecological Oncology 02/20/[address] [place] [id number] Dorcas Malave, PCP - External Obstetrics/Gynecology 11/22/[address] [place] [address] [address] [place] [address] Natasha Payne, Clinical Dietitian Nutrition 09/07/[address] [place] [address]
--- OUTSIDE RECORDS SUMMARY | 2023-05-06 22:21 | XMS REPORT | Continuity of Care Document ---
:1940 Author Organization [facility] t Address [address] [facility] [address] [place] [address] Care Team Providers Name Role Phone [phone] Primary Care Physician Unavailable SOHEILA SIERRA Attending Clinician Unavailable BLADE MONTGOMERY Attending Clinician Unavailable ROBERT PIERRE Attending Clinician Unavailable ANTWON FRAZIER Attending Clinician Unavailable JOAQUINA SAUCEDO Attending Clinician Unavailable SUKHJINDER MCCLOUD Attending Clinician Unavailable ALEX WILBURN Attending Clinician Unavailable EDGARDO MASON Attending Clinician Unavailable Alex Wilburn MD Attending Clinician Elena Minor MD Attending Clinician David DOYLE, Alvin Attending Clinician Marlon DOYLE, Edgardo Attending Clinician Freddie DOYLE, Antwon Attending Clinician Leda DOYLE, Robert Attending Clinician Doctor Unassigned, [place] Attending Clinician Unavailable Sheryl DOYLE, Joaquina Miranda Attending Clinician Lab, Ang - Db Attending Clinician Unavailable Carol MAY, Sukhjinder Attending Clinician Valentina DOYLE, Blade Car Attending Clinician FAZAL CAMARGO Attending Clinician Unavailable [facility] Attending Clinician Unavailana Medley PTA, Ravinder Calderon Attending Clinician Unavailable Fazal Clarke Attending Clinician Jonh LINCOLN, Joanna Sol Attending Clinician Unavailable Yadi Villarreal MD Attending Clinician LENNIE HARO Attending Clinician Unavailable HARRIS IZQUIERDO Attending Clinician Unavailable Hailey Crystal PTA Attending Clinician Unavailable Cindy LINCOLN, Loal Blackwood Attending Clinician Unavailable Nila Harding MD Attending Clinician Leah Li Attending Clinician NILA HARDING Attending Clinician Unavailable Rolo PETTY, Jud Butts Attending Clinician Unavailable YADI VILLARREAL Attending Clinician Unavailable Navdeep Barrios MD Attending Clinician GÉNESIS LOVE Attending Clinician Unavailable Génesis Love DO Attending Clinician Vaccine, Ang Db Cbc Fam Attending Clinician Unavailable Erwin Loco MD Attending Clinician ERWIN LOCO Attending Clinician Unavailable LARISA MENDIETA Attending Clinician Unavailable Sully Tony Attending Clinician AMANDA PINO Attending Clinician Unavailable Han Cunningham MD Attending Clinician HAN CUNNINGHAM Attending Clinician Unavailable NAVDEEP BARRIOS Attending Clinician Unavailable NAVDEEP BARRIOS Attending Clinician Unavailable Anesandeep PATHOLOGY TECHNOLOGIST, Amanda Attending Clinician Marisa DOYLE, Han Attending Clinician Vaccine, Ang Db Uc Attending Clinician Unavailable Ambar PATHOLOGY TECHNOLOGIST, Jonah Attending Clinician JONAH VILLALTA Attending Clinician Unavailable DORCAS MALAVE Attending Clinician Unavailable CHAVA FRANCISCO Attending Clinician Unavailable Vls-Lab Attending Clinician Unavailable Cierra Pugh MD Attending Clinician Ksenia Diaz MD Attending Clinician CIERRA PUGH Attending Clinician Unavailable CARRIE POTTS Attending Clinician Unavailable EFRA CRANDALL Attending Clinician Unavailable RHONDA DAVIS Attending Clinician Unavailable LARA LAMB Attending Clinician Unavailable Lara Lamb MD Attending Clinician Cyndi Monsalve MD Attending Clinician SULLY MEDLEY Attending Clinician Unavailable 2, Adc Lab Attending Clinician Unavailable Vijaya Quiroz RN Attending Clinician Unavailable KATERINA FISHER Attending Clinician Unavailable Lorie Butler DO Attending Clinician Leonardo Cortez MD Attending Clinician Palma Mccullough MD Attending Clinician Katerina Fisher MD Attending Clinician Coco Gibson MD Attending Clinician Niels Perez MD Attending Clinician NILA HARDING Attending Clinician Unavailable NILA HARDING Attending Clinician Unavailable Nila Harding MD Attending Clinician Only, Adc Test Attending Clinician Unavailable Blade Wilson MD Attending Clinician BLADE WILSON Attending Clinician Unavailable Gayla Jacobson PA-C Attending Clinician Pob, Adc Lab Main Attending Clinician Unavailable LATOYA GALE Attending Clinician Unavailable Dorcas Malave MD Attending Clinician Nuvia SYED, Nicole Butts Attending Clinician Unavailable Only, Ang Db Test Attending Clinician Unavailable Brandt PATHOLOGY TECHNOLOGIST, Dwaine Attending Clinician DWAINE CARLTON Attending Clinician Unavailable MARIELY GUZMAN Attending Clinician Unavailable MARIELY GUZMAN Attending Clinician Unavailable Faculty, Cardiology Valve Attending Clinician Unavailable Adelina PATHOLOGY TECHNOLOGIST, Nicole Blackwood Attending Clinician PITER THAO G Attending Clinician Unavailable Josemaite ULLOA Piter G Attending Clinician Brandt SYED, Génesis Sol Attending Clinician Unavailable Nurse, Clc Bls Cardio Attending Clinician Unavailable Brayan PATHOLOGY TECHNOLOGIST, Evelina Do Attending Clinician Rachael SYED, Penelope Attending Clinician Unavailable Chante Stephens RN, Katarina Attending Clinician Unavailable Mariela DOYLE, Soheila Butts Attending Clinician Navin MORSE, Marcus Riddle Attending Clinician [phone] Denae Jefferson MD Attending Clinician Rosario DOYLE, Kendall Do Attending Clinician Aaron PATHOLOGY TECHNOLOGIST, Shalini Do Attending Clinician Rey DOYLE, Tammy Attending Clinician Provider, Clc Cardiac Attending Clinician Unavailable Anesthesia, Clc Cardiac Cath Attending Clinician Unavailable Call, Clc [facility] Phone Attending Clinician Unavailable Lennie Wharton Attending Clinician [facility] Diabetes Education Class Attending Clinician Unavaila ble Keith RD, Karishma Attending Clinician KEITH, KARISHMA Attending Clinician Unavailable Donavan Archuleta MD Attending Clinician , [facility] Surg Spec Procedure Attending Clinician Unavailable DONAVAN ARCHULETA Attending Clinician Unavailable Vickie Sandoval PT Attending Clinician Unavailable NICOLE SAHU A Attending Clinician Unavailable , Adc Echo Room 1 - Attending Clinician Unavailable Juwan DOYLE, Radha Beck Attending Clinician Jose Hernandez MD Attending Clinician JOSE HERNANDEZ Attending Clinician Unavailable JOSE HERNANDEZ Attending Clinician Unavailable RADHA ECHEVERRIAHCelia Attending Clinician Unavailable JANNIE MOSS Attending Clinician Unavailable SMITH KENNEDY RALPH Attending Clinician Unavailable 1, Adc Lab Attending Clinician Unavailable J Carlos DOYLE, Christian Garza Attending Clinician SOHEILA SIERRA Admitting Clinician Unavailable ELENA MINOR Admitting Clinician Unavailable Iván DOYLE, Elena Barrientos Admitting Clinician FAZAL CAMARGO Admitting Clinician Unavailable AMANDA PINO Admitting Clinician Unavailable CYNDI MONSALVE Admitting Clinician Unavailable Zeinab DOYLE, Cyndi Admitting Clinician LORIE BUTLER Admitting Clinician Unavailable Lorie Butler DO Admitting Clinician NILA HARDING Admitting Clinician Unavailable Mehdi DOYLE, Nila Admitting Clinician Marcus Victor Admitting Clinician [phone] Rey DOYLE, [facility] Admitting Clinician Vickie DOYLE, [facility] Admitting Clinician SMITH KENNEDY RALPH Admitting Clinician Unavailable Payers Payer Name Policy Type Policy Number Effective Date Expiration Date S our BCBS FED SELECT [id number] 2009 00:00:00 MEDICARE PART A [id number] 2007 00:00:00 [facility] [id number] BCTX BCTP [id number] Problems Condition Condition Condition Status Onset Resolution Last Treating Co mments Source Name Details Category Date Date Treatment Clinician Date 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 Added automatic ally from request for surgery [id number] Hyperlipid Hyperlipid Disease Active U nivers emia, emia, 5-04 ity of unspecifie un[place]ifie [place] 00 Medical hyperlipid hyperlipid Br anch emantoni type emia type Chronic Chronic Disease Active Univers right-side right-side 2-07 it y of d low back d low back 00:[place] pain pain 00 Medical without without Branch sciatica sciatica Decreased Decreased Disease Active Uni vers activities activities 2-07 it y of of daily of daily 00:00: [place] living living 00 Medical (ADL) (ADL) Branch Other Other Disease Active Univers specified specified 2-25 ity of anemia anemia 00:00: [place] 00 MD [facility] H/O: H/O: Disease Active Univers hysterecto hysterecto 2-25 it y of my my 00:00: [place] 00 MD [facility] Symptomati Symptomati Disease Active U nivers c anemia c anemia 2-22 ity of 00:00: [place] Medical Branch Acute GI Acute GI Disease Active Unive rs bleeding bleeding 1-30 ity of 00:00: [place] [facility] Palpitatio Palpitatio Disease Active U abdoulayeers ns ns 1-30 ity of 00:00: [place] [facility] Anemia Anemia Disease Active Univers 1-29 ity of 00:00: [place] [facility] Postoperat Postoperat Disease Active U nivers is[place] state is[place] state 1-12 ity of 00:00: [place] 00 Medical Branch Malignant Malignant Disease Active Overview: Univers neoplasm neoplasm -04 Formattin ity of of of 00:00: g of this [place] endometriu endometriu 00 note Me dical m m might be Branch different from the original. Added automatic ally from request for surgery [id number] Malignant Malignant Disease Active 2020-11 Uni vers neoplasm neoplasm - ity of of of 00:00: [place] endometriu endometriu 00 MD [facility] Chronic Chronic Disease Active 2020-11 Univers heart heart -19 ity of failure failure 00:00: [place] with with 00 Medical preserved preserved Bran ch ejection ejection fraction fraction Thickened Thickened Disease Active 2020-11 Overview: Univers endometriu endometriu 11-25 Formattin ity of m m 00:00: g of this [place] 00 note Medical might be Branch different from the original. Added automatic ally from request for surgery [id number] Postmenopa Postmenopa Disease Active 2020-11 Overview : Univers usal usal 1-02 Formattin ity of bleeding bleeding 00:00: g of this [place] as 00 note Medical might be Branch different from the original. Added automatic ally from request for surgery [id number] Chronic Chronic Disease Active 2020-11 Univers kidney kidney 0-07 ity of disease disease 00:00: [place] 00 MD [facility] S/P TAVR S/P TAVR Disease Active Unive rs (transcath (transcath 8-11 it y of eter eter 00:00: [place] aortic aortic 00 Medical valve valve Branch replacemen replacemen t) t) Status Status Disease Active Univers post post 6-17 ity of transcathe transcathe 00:[place] ter aortic ter aortic 00 Me dical valve valve Branch replacemen replacemen t (TAVR) t (TAVR) using using bioprosthe bioprosthe sis sis Status Status Disease Active Univers post post 6-17 ity of transcathe transcathe 00:[place] aortic ter aortic 00 Me dical valve valve Branch replacemen replacemen t (TAVR) t (TAVR) using using bioprosthe bioprosthe sis sis Aortic Aortic Disease Active Overview: Univer s valve valve 04-20 Formattin ity of stenosis, stenosis, 00:00: [place] of this [place] etiology etiology 00 note Medica l of cardiac of cardiac might be Branch valve valve different disease disease from the unspecifie unspecifie original. jay thompson Added automatic ally from request for surgery [id number] CAD S/P CAD S/P Disease Active Univers percutaneo percutaneo 5-18 it y of us us 00:00: [place] coronary coronary 00 Medica l angioplast angioplast Br anch y y BMI 45 to BMI 45 to Disease Active Uni vers 49.9 49.9 4-09 ity of 00:00: [place] 00 MD [facility] Type 2 Type 2 Disease Active Univers diabetes diabetes 4-08 ity of mellitus mellitus 00:00: [place] 00 MD [facility] Hypertensi Hypertensi Disease Active U nivers on on 4-08 ity of 00:00: [place] 00 MD [facility] History of History of Disease Active U nivers cardiac cardiac 4-08 ity of arrest arrest 00:00: [place] 00 MD [facility] [place] Hypothyroi Hypothyroi Disease Active U nivrocky dism dism 4-08 ity of 00:00: 00 MD [facility] [place] Hyperlipid Hyperlipid Disease Active U nivers emia emia 4-08 ity of 00:00: [place] 00 MD [facility] Coronary Coronary Disease Active Unive rs arterioscl arterioscl 4-08 it y of erosis erosis 00:00: [place] 00 MD [facility] Dyspnea on Dyspnea on Disease Active U nivers exertion exertion 4-08 ity of 00:00: [place] 00 MD [facility] Heart Heart Disease Active Univers failure failure 4-08 ity of with with 00:00: [place] normal normal 00 ejection ejection Harman o fraction fraction [facility] Obesity Obesity Disease Active Univers 4-08 ity of 00:00: [place] 00 MD [facility] Obstructiv Obstructiv Disease Active U kayden e sleep e sleep 4-08 ity of apnea apnea 00:00: [place] syndrome syndrome 00 MD [facility] Aortic Aortic Disease Active Univers valve valve 4-08 ity of stenosis stenosis 00:00: 00 MD [facility] Coronary Coronary Disease Active Unive rs artery artery 3-23 ity of disease disease 00:00: [place] involving involving 00 Medi keily [place] Branch coronary coronary artery of artery of [place] heart heart without without angina angina pectoris pectoris WHITE WHITE Disease Active Univers (dyspnea (dyspnea 3-23 ity of on on 00:00: [place] exertion) exertion) 00 Medi keily Branch Coronary Coronary Disease Active Unive rs artery artery 3-23 ity of disease disease 00:00: [place] involving involving 00 Medi keily [place] Branch coronary coronary artery of artery of [place] heart heart without without angina angina pectoris pectoris HILDA on HILDA on Disease Active Univers CPAP CPAP 3-23 ity of 00:00: [place] 00 Medical Branch Morbid Morbid Disease Active Univers obesity obesity 3-23 ity of 00:00: [place] 00 Medical Branch Type 2 Type 2 Disease Active Univers diabetes diabetes 2-23 ity of mellitus mellitus 00:00: [place] with stage with stage 00 Me dical 4 chronic 4 chronic Bran ch kidney kidney disease, disease, without without long-term long-term current current use of use of insulin insulin Chronic Chronic Disease Active Univers left-sided left-sided 2-23 it y of low back low back 00:00: [place] pain pain 00 Medical without without Branch sciatica sciatica Acquired Acquired Disease Active Unive rs hypothyroi hypothyroi 2-23 it y of dism dism 00:00: [place] 00 Medical Branch Essential Essential Disease Active Uni vers hypertensi hypertensi 2-23 it y of on on 00:00: [place] [facility] Cardiac Cardiac Disease Active 2018-11 Univers arrest due arrest due 0-18 it y of to to 00:00: [place] underlying underlying 00 Me dical cardiac cardiac Branch condition condition Acute Acute Disease Active 2017-11 Univers renal renal 1-09 ity of insufficie insufficie 00:00: [place] ncy ncy Medical Branch Allergies, Adverse Reactions, Alerts Allergy Allergy Status Severity Reaction(s) Onset Inactive Treating Comm ents Source Name Type Date Date Clinician LATEX, Drug Active Swelling MD NATURAL Class 6-19 Anderso RUBBER 00:00: n 00 LATEX, Drug Active Swelling 2020-0 MD NATURAL Class 6-19 Anderso RUBBER 00:00: n 00 LATEX, Drug Active Swelling 2020-0 MD NATURAL Class 6-19 Anderso RUBBER 00:00: n 00 LATEX, Drug Active Swelling 2020-0 MD NATURAL Class 6-19 Anderso RUBBER 00:00: n 00 LATEX, Drug Active Swelling 2020-0 MD NATURAL Class 6-19 Anderso RUBBER 00:00: n 00 LATEX, Drug Active Swelling 2020-0 MD NATURAL Class 6-19 Anderso RUBBER 00:00: n 00 LATEX, Drug Active Swelling 2020-0 MD NATURAL Class 6-19 Anderso RUBBER 00:00: n 00 LATEX, Drug Active Swelling 2021-0 MD NATURAL Class 6-19 Anderso RUBBER 00:00: n 00 LATEX, Drug Active Swelling 2021-0 MD NATURAL Class 6-19 Anderso RUBBER 00:00: n 00 LATEX, Drug Active Swelling 2021-0 MD NATURAL Class 6-19 Anderso RUBBER 00:00: n 00 LATEX, Drug Active Swelling 2021-0 MD NATURAL Class 6-19 Anderso RUBBER 00:00: n 00 LATEX, Drug Active Swelling 2021-0 MD NATURAL Class 6-19 Anderso RUBBER 00:00: n 00 LATEX, Drug Active Swelling 2021-0 MD NATURAL Class 6-19 Anderso RUBBER 00:00: n 00 LATEX, Drug Active Swelling 2021-0 MD NATURAL Class 6-19 Anderso RUBBER 00:00: n 00 LATEX, Drug Active Swelling 2021-0 MD NATURAL Class 6-19 Anderso RUBBER 00:00: n 00 LATEX, Drug Active Swelling 2021-0 MD NATURAL Class 6-19 Anderso RUBBER 00:00: n 00 LATEX, Drug Active Swelling 2021-0 MD NATURAL Class 6-19 Anderso RUBBER 00:00: n 00 LATEX, Drug Active Swelling 2021-0 MD NATURAL Class 6-19 Anderso RUBBER 00:00: n 00 LATEX, Drug Active Swelling 2021-0 MD NATURAL Class 6-19 Anderso RUBBER 00:00: n 00 Latex, Propensi Active Swelling 1-0 Univer s Natural ty to 6-19 ity of Rubber adverse 00:00: [place] reaction 00 MD kateryna Tate [facility] Latex, Propensi Active Other - See 2020-0 Uni vers Natural ty to comments 6-18 ity of Rubber adverse 00:00: [place] reaction 00 Medical s Branch LATEX, Drug Active Swelling 1-0 Univers NATURAL Class 6-18 ity of RUBBER 00:00: [place] [id number] Medical Branch No Known DA Active U 2019- [facility]12 [place] 00:00: [address] No Known DA Active U 2004-0 [facility] Contrast 1- [place] 00:00: [address] No Known DA Active U 2004-0 [facility] [place] 00:00: [address] No Known DA Active U 2004-0 [facility] - [place] 00:00: [address] No Known DA Active U 2004-0 [facility] Other 1-27 [place] 00:00: [address] Family History Family Member Diagnosis Comments Start Date Stop Date Source Natural brother Lung cancer [facility] MD Raman Frausto Social History Social Habit Start Date Stop Date Quantity Comments Source History of tobacco Current smoker Un iversity of use [place] [facility] History SDVA University o f Housing Places [place] Medi keily Lived Branch History SDOH 2023-05-05 2023-05-05 5 University o f Financial 00:00:00 00:00:00 [place] [facility] History SDOH Food 2023-05-05 2023-05-05 1 Univers ity of Worry 00:00:00 00:00:00 [place] [facility] History SDOH Food 2023-05-05 2023-05-05 1 Univers ity of Scarcity 00:00:00 00:00:00 [place] [facility] History SDOH 2023-05-05 2023-05-05 2 University o f Transport Med 00:00:00 00:00:00 [place] Medic al Branch History SDOH 2023-05-05 2023-05-05 2 University o f Transport Non-Med 00:00:00 00:00:00 [place] M edical Branch History SDOH 2023-05-05 2023-05-05 2 University o f Housing Unable to 00:00:00 00:00:00 [place] M edical Pay Branch History SDOH 2023-05-05 2023-05-05 2 University o f Housing Homeless 00:00:00 00:00:00 [place] Me dical Last Year Branch History SDOH Social 2023-05-05 2023-05-05 98 Unive rsity of Connections Phone 00:00:00 00:00:00 [place] M edical Branch History SDOH Social 2023-05-05 2023-05-05 98 Unive rsity of Connections Living 00:00:00 00:00:00 [place] [facility] History SDOH 2023-05-05 2023-05-05 2 University o f Physical Activity 00:00:00 00:00:00 [place] M edical DPW Branch History SDOH 2023-05-05 2023-05-05 4 University o f Physical Activity 00:00:00 00:00:00 [place] M edical MPS Branch History SDOH 2023-05-05 2023-05-05 2 University o f Alcohol Frequency 00:00:00 00:00:00 [place] M edical Branch History SDOH 2023-05-05 2023-05-05 1 University o f Alcohol Std Drinks 00:00:00 00:00:00 [place] [facility] History SDOH 2023-05-05 2023-05-05 1 University o f Alcohol Binge 00:00:00 00:00:00 [place] Medic al Branch Exposure to 2023-04-13 2023-04-23 Not sure University of SARS-CoV-2 (event) 00:00:00 14:36:00 [facility] Alcohol intake 2022-07-25 2022-07-25 Current drinker Unive rsity of 00:00:00 00:00:00 of alcohol [facility] Cigarettes smoked 2021-03-01 2021-03-01 Univers ity of current (pack per 00:00:00 00:00:00 [facility] - [facility] nter Cigarette 2021-03-01 2021-03-01 University of pack-years 00:00:00 00:00:00 [facility] Tobacco use and 2021-03-01 2021-03-01 Smokeless Universit y of exposure 00:00:00 00:00:00 tobacco non-user [facility] Alcohol Comment 2021-03-01 2021-03-01 social Universit y of 00:00:00 00:00:00 [facility] Center History SDOH Social 2021-01-16 2021-01-16 5 Unive rsity of Connections Get 00:00:00 00:00:00 [place] Med ical Together Branch History SDOH Social 2021-01-16 2021-01-16 99 Unive rsity of Connections [employer] 00:00:00 00:00:00 [place] [facility] History SDOH Social 2021-01-16 2021-01-16 1 Unive rsity of Connections 00:00:00 00:00:00 [place] Medical Membership Branch History SDOH Social 2021-01-16 2021-01-16 3 Unive rsity of Connections 00:00:00 00:00:00 [place] Medical Meetings Branch Sex [birth year] Universit y of 00:00:00 00:00:00 [facility] Smoking Status Start Date Stop Date Source Ex-smoker 2022-09-23 00:00:00 2022-09-23 00:00:00 [facility] Never smoked tobacco [facility] Medications Ordered Filled Start Stop Current Ordering Indication Dosage Frequency Signature Comments Components Source Medication Medication Date Date Medication? Clinician (SIG) Name Name aspirin 81 Yes 81mg Take 1 Unive rs mg chewable 6-13 tablet by ity of tablet 21:02: mouth in [place] 02 the Medical morning. Branch Cyanocobala Yes 1{tbl} Place 1 U nivers min 6-13 tablet ity of (VITAMIN 21:02: [place] B-12) 2,500 02 tongue Medica l mcg Subl daily. Branch multivit Yes 1{tbl} Take 1 Unive rs with 6-13 tablet by ity of min-folic 21:02: mouth [place] acid 02 daily. Medical (CENTRUM Branch ADULT 50 FRESH-FRUIT Y) 120 mcg Chew Magnesium Yes 1{tbl} Take 1 Univ ers 250 mg Tab 6-13 tablet by ity of 21:02: mouth. [place] [facility] NaCl 0.9% 0 Yes 1000mL at 50 Unive rs (NS) IV 6-13 mL/hr, IV ity of infusion 01:15: [place] 1,000 mL 00 CONTINUOUS Medic al , Starting Branch on Fri05/05/23 at 2014, Until Discontinu ed, Routine NaCl 0.9% 2022-0 Yes 1000mL at 50 Unive rs (NS) IV 6-13 mL/hr, IV ity of infusion 01:15: [place] 1,000 mL 00 CONTINUOUS Medic al , Starting Branch on Fri05/05/23 at 2014, Until Discontinu ed, Routine cyclobenzap 2022- Yes [id number] 5mg Take 1 Univers rine 5 mg 6-13 06-24 tablet by ity of tablet 00:00: 04:59 mouth in [place] 00 :00 the Medical morning Branch and 1 tablet at noon and 1 tablet in the evening. Do all this for 10 days. oxyCODONE 5 2022- Yes [id number] 5mg Take 1 Uni vers mg 05-06 tablet by ity of immediate 00:00: 04:59 mouth [place] release 00 :00 every 6 Medical tablet (six) Branch hours as needed for Pain (scale 4-6) for up to 5 days. Indication s: acute pain ALPRAZolam 0 Yes .25mg 0.25 mg, Un yolanda (XANAX) 05-04 Oral, ity of tablet 0.25 16:59: TIDPRN, [place] mg 33 Starting Medical on [place] Branch 05/04/23 at 1159, Until Discontinu ed, Routine, Anxiety ALPRAZolam 0 Yes .25mg 0.25 mg, Un yolanda (XANAX) 05-04 Oral, ity of tablet 0.25 16:59: TIDPRN, [place] as mg 33 Starting Medical on [place] Branch 05/04/23 at 1159, Until Discontinu ed, Routine, Anxiety insulin 2022-0 Yes 20U 20 Units, Unive rs glargine 05-04 Subcutaneo ity o f (LANTUS 02:00: us, [facility], [place] U-100) 00 First dose Medical injection on Sat Branch 20 Units 05/03/23 at 2100, Until Discontinu ed, Routine insulin 2022-0 Yes 20U 20 Units, Unive rs glargine 05-04 Subcutaneo ity o f (LANTUS 02:00: us, [facility], [place] U-100) 00 First dose Medical injection on Sat Branch 20 Units 05/03/23 at 2100, Until Discontinu ed, Routine sodium 2022-0 2022- No 30g 30 g, Univers polystyrene 05-03 Oral, ity of sulfonate 23:30: 22:48 ONCE, 1 [place] (KAYEXALATE 00 :00 dose, On Medi keily ) 15 Sat Branch gram/60 mL 05/03/23 at suspension 1830, 30 g Routine acetaminoph 2022-0 Yes 1000mg 1,000 mg, Univers en 10 Oral, Q8H, ity of (TYLENOL) 19:00: [place] tablet 00 on Sat Medical 1,000 mg 05/03/[address] [facility] h 1400, Until Discontinu ed, Routine acetaminoph 2023-0 Yes 1000mg 1,000 mg, Univers en 6-10 Oral, Q8H, ity of (TYLENOL) 19:00: [place] tablet 00 on Sat Medical 1,000 mg 05/03/[address] [facility] h 1400, Until Discontinu ed, Routine insulin 2023-0 Yes 5U 5 Units, Univer s lispro 6-10 Subcutaneo ity of (human) 16:30: [place], [place] (HumaLOG 00 First dose Medic al U-100) on Sat Branch injection 5 05/03/23 at Units 1130, Until Discontinu ed, Routine insulin 2023-0 Yes 5U 5 Units, Univer s lispro 6-10 Subcutaneo ity of (human) 16:30: [place], [place]IDAC, [place] (HumaLOG 00 First dose Medic al U-100) on Sat Branch injection 5 05/03/23 at Units 1130, Until Discontinu ed, Routine NaCl 0.9% 2023-0 2023- No at 70 Univer s (NS) IV 6-10 06-11 mL/hr, IV ity of infusion 15:45: 15:44 Infusion, [place] 00 :00 CONTINUOUS Medical , Starting Branch on 05/03/23 at 1045, Until 05/04/23 at 1044, Routine amLODIPine 2023-0 Yes 10mg 10 mg, Unive rs (NORVASC) 6-10 Oral, QAM, ity of tablet 10 14:00: First dose [place] mg 00 (after Medical last Branch modificati on) on 05/03/23 at 0900, Until Discontinu ed, Routine enoxaparin 2023-0 Yes 40mg 40 mg, Unive rs (LOVENOX) 6-10 Subcutaneo ity of injection 14:00: us, DAILY, [place] 40 mg 00 First dose Medical on Sat Branch 05/03/23 at 0900, Until Discontinu ed, Routine ezetimibe 2023-0 Yes 10mg 10 mg, Univer s (ZETIA) 6-10 Oral, ity of tablet 10 14:00: DAILY, [place] mg 00 First dose Medical on Sat Branch 05/03/23 at 0900, Until Discontinu ed, Routine furosemide 2023-0 Yes 40mg 40 mg, Unive rs (LASIX) 6-10 Oral, ity of tablet 40 14:00: DAILY, [place] mg 00 First dose Medical on [facility] Branch 05/03/23 at 0900, Until Discontinu ed, Routine SITagliptin 2023-0 Yes 50mg 50 mg, Univ ers phosphate 6-10 Oral, QAM, ity of (JANUVIA) 14:00: First dose [place] tablet 50 00 on [facility] Medical mg 05/03/23 at Branch 0900, Until Discontinu ed, Routine omeprazole 2023-0 Yes 20mg 20 mg, Unive rs (PRILOSEC) 6-10 Oral, ity of capsule 20 14:00: DAILY, [place] mg 00 First dose Medical on [facility] Branch 05/03/23 at 0900, Until Discontinu ed amLODIPine 2023-0 Yes 10mg 10 mg, Unive rs (NORVASC) 6-10 Oral, QAM, ity of tablet 10 14:00: First dose [place] mg 00 (after Medical last Branch modificati on) on [facility] 05/03/23 at 0900, Until Discontinu ed, Routine enoxaparin 2023-0 Yes 40mg 40 mg, Unive rs (LOVENOX) 6-10 Subcutaneo ity of injection 14:00: us, DAILY, [place] 40 mg 00 First dose Medical on [facility] Branch 05/03/23 at 0900, Until Discontinu ed, Routine ezetimibe 2023-0 Yes 10mg 10 mg, Univer s (ZETIA) 6-10 Oral, ity of tablet 10 14:00: DAILY, [place] mg 00 First dose Medical on [facility] Branch 05/03/23 at 0900, Until Discontinu ed, Routine furosemide 2023-0 Yes 40mg 40 mg, Unive rs (LASIX) 6-10 Oral, ity of tablet 40 14:00: DAILY, [place] mg 00 First dose Medical on [facility] Branch 05/03/23 at 0900, Until Discontinu ed, Routine SITagliptin 2023-0 Yes 50mg 50 mg, Univ ers phosphate 6-10 Oral, QAM, ity of (JANUVIA) 14:00: First dose [place] tablet 50 00 on [facility] Medical mg 05/03/23 at Branch 0900, Until Discontinu ed, Routine omeprazole 2023-0 Yes 20mg 20 mg, Unive rs (PRILOSEC) 10 Oral, ity of capsule 20 14:00: DAILY, [place] mg 00 First dose Medical on [facility] Branch 05/03/23 at 0900, Until Discontinu ed famotidine 2022- No 20mg 20 mg, Univ ers (PEPCID AC) 05-03 06-12 Oral, ity of tablet 20 14:00: 20:16 DAILY, [place] mg 00 :56 First dose Medical on [facility] 05/03/23 at 0900, Until Discontinu ed, Routine levothyroxi Yes 50ug 50 mcg, Uni vers ne 6-10 Oral, ity of (SYNTHROID) 11:00: QAM-0600, [place] tablet 50 00 First dose Medi keily mcg on [facility] 05/03/23 at 0600, Until Discontinu ed, Routine levothyroxi Yes 50ug 50 mcg, Uni vers ne 10 Oral, ity of (SYNTHROID) 11:00: QAM-0600, [place] tablet 50 00 First dose Medi keily mcg on [facility] 05/03/23 at 0600, Until Discontinu ed, Routine sodium No 10g 10 g, Univers zirconium 05-03 Oral, ity of cyclosilica 04:15: 04:19 DAILY, 1 [place] te 00 :00 dose, Medical (LOKELMA) First dose Bran ch 10 gram on Fri packet 10 g 05/02/23 at 2315, Routine atorvastati Yes 80mg 80 mg, Univ ers n (LIPITOR) 6-10 Oral, QHS, it y of tablet 80 02:00: First dose [place] mg 00 on Fri Medical 05/02/23 at Branch 2100, Until Discontinu ed, Routine latanoprost Yes 1[drp] 1 Drop, U [place] (XALATAN) 610 Both Eyes, ity of 0.005 % 02:00: QHS, First [place] ophthalmic 00 dose on Medica l drops 1 Fri05/02/23 Branch Drop at 2100, Until Discontinu ed, Routine atorvastati Yes 80mg 80 mg, Univ ers n (LIPITOR) 6-10 Oral, QHS, it y of tablet 80 02:00: First dose [place] mg 00 on Fri Medical 05/02/23 at [place] 2100, Until Discontinu ed, Routine latanoprost 2023-0 Yes 1[drp] 1 Drop, U nivers (XALATAN) 6-10 Both Eyes, ity of 0.005 % 02:00: QHS, [place] ophthalmic 00 dose on Medica l drops 1 Fri05/02/23 [facility] at 2100, Until Discontinu ed, Routine ascorbic 2023-0 Yes 500mg 500 mg, Unive rs acid 6-10 Oral, BID, ity of (vitamin C) 01:00: First dose [place] (VITAMIN C) 00 on Fri Medica l tablet 500 05/02/23 at Bran ch mg 1999, Until Discontinu ed, Routine cyclobenzap 2023-0 Yes 5mg 5 mg, Unive rs rine 6-10 Oral, TID, ity of (FLEXERIL) 01:00: First dose [place] tablet 5 mg 00 on Fri Medica l 05/02/23 at Branch 2000, Until Discontinu ed, Routine docusate 2023-0 Yes 100mg 100 mg, Unive rs (COLACE) 6-10 Oral, BID, ity o f capsule 100 01:00: First dose [place] mg 00 on Fri05/02/23 at Branch 2000, Until Discontinu ed, Routine metoprolol 2023-0 Yes 25mg 25 mg, Unive rs succinate 6-10 Oral, BID, ity of XL (TOPROL 01:00: First dose [place] XL) tablet 00 on Fri Medical 25 mg 05/02/23 at Branch 2000, Until Discontinu ed, Routine ascorbic 2023-0 Yes 500mg 500 mg, Unive rs acid 6-10 Oral, BID, ity of (vitamin C) 01:00: First dose [place] (VITAMIN C) 00 on Fri Medica l tablet 500 05/02/23 at Bran ch mg 1999, Until Discontinu ed, Routine cyclobenzap 2023-0 Yes 5mg 5 mg, Unive rs rine 6-10 Oral, TID, ity of (FLEXERIL) 01:00: First dose [place] tablet 5 mg 00 on Fri Medica l 05/02/23 at Branch 2000, Until Discontinu ed, Routine docusate 2023-0 Yes 100mg 100 mg, Unive rs (COLACE) 6-10 Oral, BID, ity o f capsule 100 01:00: First dose [place] mg 00 on Fri Medical 05/02/23 at [place] 1999, Until Discontinu ed, Routine metoprolol Yes 25mg 25 mg, Unive rs succinate 6-10 Oral, BID, ity of XL (TOPROL 01:00: First dose [place] XL) tablet 00 on Fri Medical 25 mg 05/02/23 at [place] 1999, Until Discontinu ed, Routine dextrose 0 Yes 125mL 125 mL, Unive rs 10% (D10W) 05-02 Intravenou ity of bolus 23:59: s, PRN - [place] infusion 55 SEE Medical 125 mL [facility] NS, Administer over 60 Minutes, Administer once if after insulin administra tion, blood glucose is 71-150 mg/dL and patient is unable to eat a 15 g carb snack, Starting on Fri05/02/23 at 1859, For 1 dose
If patient is able to eat/swallo w, give 15 gram&n bsp; carb snack - Sprite or cranberry juice.
dextrose Yes 125mL 125 mL, Unive rs 10% (D10W) 05-02 Intravenou ity of bolus 23:59: s, PRN - [place] infusion 55 SEE Medical 125 mL [facility] NS, Administer over 60 Minutes, Administer once if after insulin administra tion, blood glucose is 71-150 mg/dL and patient is unable to eat a 15 g carb snack, Starting on Fri05/02/23 at 1859, For 1 dose
If patient is able to eat/swallo w, give 15 gram&n bsp; carb snack - Sprite or cranberry juice.
sodium 2022- No 30g 30 g, Univers polystyrene 05-02 Oral, ity of sulfonate 22:45: 22:19 ONCE, 1 [place] (KAYEXALATE 00 :00 dose, On Medi keily ) 15 Fri05/02/23 Branch gram/60 mL at 1745, suspension Routine 30 g insulin 2022- No .1U/kg 10.87 Univer s regular 05-02 Units (0.1 ity o f human 22:15: 22:53 Units/kg [place] (HUMULIN R) 00 :00 ?108.7 Medica l injection kg), IV Branch 10.87 Units [place], ONCE, 1 dose, On Fri05/02/23 at 1715, KATIA
In dication for insulin: Hyperkalem ia- Please use the Insulin Protocol for Hyperkalem ia order set dextrose 50 2022- No 25mL 25 mL, Uni vers % in water 05-02 Slow IV ity o f (D50W) 22:15: 22:50 Push, [place] injection 00 :00 ONCE, 1 Medical 25 mL dose, On Branch Fri05/02/23 at 1715, KATIA sodium 2022- No 50meq 50 mEq, [facility] bicarbonate 05-02 Slow IV ity of injection 22:15: 23:08 Push, [place] 50 mEq 00 :00 ONCE, 1 Medical dose, On Branch Fri05/02/23 at 1715, KATIA insulin 2022- No 14U 14 Units, [facility] ers lispro 05-02 Subcutaneo ity of (human) 22:00: 15:02 us, TID [place] (HumaLOG 00 :54 MEALS, Medical U-100) First dose Branch injection on Fri 14 Units 05/02/23 at 1700, Until Discontinu ed insulin 2022- No 2U 2 Units, [place] [facility] rs lispro 05-02 Subcutaneo ity of (human) 21:59: 01:45 us, PRN - [place] (HumaLOG 55 :00 SEE Medical U-100) INSTRUCTIO Branch injection 2 NS, 1 Units dose, Starting on Fri05/02/23 at 1659, Until Discontinu ed, KATIA, For blood glucose > 300 mg/dL calcium Yes 2g 2 g, IV Univers gluconate 2 05-02 Infusion, ity of g in NaCl 21:59: at 200 [place] 100 mL 34 mL/hr Medical (ISO-OSM) Administer Bran ch RTU IV over 30 infusion 2 Minutes, g PRN - SEE INSTRUCTIO NS, Starting on Fri05/02/23 at 1659, Until Discontinu ed, STAT, Potassium greater than or equal to 6.0 mEq/L with our without EKG changes calcium 2022- Yes 2g 2 g, IV Univers gluconate 2 05-02 Infusion, ity of g in NaCl 21:59: at 200 [place] 100 mL 34 mL/hr Medical (ISO-OSM) Administer Bran ch RTU IV over 30 infusion 2 Minutes, g PRN - SEE INSTRUCTIO NS, Starting on Fri05/02/23 at 1659, Until Discontinu ed, STAT, Potassium greater than or equal to 6.0 mEq/L with our without EKG changes dextrose Yes 250mL 250 mL, IV Un yolanda 10% (D10W) 05-02 Infusion, ity of bolus 21:59: PRN - SEE [place] infusion 21 INSTRUCTIO Medic al 250 mL NS, Branch Administer over 60 Minutes, Other, If blood glucose is < or = 70 mg/dL and patient is unable to swallow or has mental status changes, Starting on Fri05/02/23 at 1659
If blood glucose is < or = 70 mg/dL and patient is unable to swallow or has mental status changes (Give glucagon order if patient needs fluid restrictio n): IF IV access available: Dextrose 10%. 1. 125 mL (? bag) of D10W IV infusion - equivalent to 12.5 g dextrose 2. Blood glucose - draw blood glucose 15 minutes after D10W Administra tion. 3. If blood glucose is < 80 mg/dL, repeat.
dextrose Yes 250mL 250 mL, IV Un yolanda 10% (D10W) 05-02 Infusion, ity of bolus 21:59: PRN - SEE [place] infusion 21 INSTRUCTIO Medic al 250 mL NS, Branch Administer over 60 Minutes, Other, If blood glucose is < or = 70 mg/dL and patient is unable to swallow or has mental status changes, Starting on Fri05/02/23 at 1659
If blood glucose is < or = 70 mg/dL and patient is unable to swallow or has mental status changes (Give glucagon order if patient needs fluid restrictio n): IF IV access available: Dextrose 10%. 1. 125 mL (? bag) of D10W IV infusion - equivalent to 12.5 g dextrose 2. Blood glucose - draw blood glucose 15 minutes after D10W Administra tion. 3. If blood glucose is < 80 mg/dL, repeat.
glucagon 2022-0 Yes 1mg 1 mg, Univers (GLUCAGEN 05-02 Intramuscu ity of DIAGNOSTIC 21:58: lar, PRN, [place] KIT) 52 Starting Medical injection 1 on Fri [facility] 05/02/23 at 1658, Until Discontinu ed, KATIA, Blood Glucose < or = 70 mg/dL and patient is NPO, unable to swallow or has mental changes. glucagon 2022-0 Yes 1mg 1 mg, Univers (GLUCAGEN 05-02 Intramuscu ity of DIAGNOSTIC 21:58: lar, PRN, [place] KIT) 52 Starting Medical injection 1 on Fri [facility] 05/02/23 at 1658, Until Discontinu ed, KATIA, Blood Glucose < or = 70 mg/dL and patient is NPO, unable to swallow or has mental changes. hydralAZINE 2022-0 Yes 10mg 10 mg, Univ ers (APRESOLINE 05-02 Slow IV ity o f ) injection 21:09: Push, [place] 10 mg 38 Q4HPRN, Medical Starting Branch on Fri05/02/23 at 1609, Until Discontinu ed, Routine, DBP=>10 0; SBP=>160 hydralAZINE 2022-0 Yes 10mg 10 mg, Univ ers (APRESOLINE 05-02 Slow IV ity o f ) injection 21:09: Push, [place] 10 mg 38 Q4HPRN, Medical Starting Branch on Fri05/02/23 at 1609, Until Discontinu ed, Routine, DBP=>10 0; SBP=>160 ketorolac 2022-0 2022- No 30mg 30 mg, Unive rs (TORADOL) 05-02- Slow IV ity of injection 20:30: 23:18 Push, [place] 30 mg 00 :00 ONCE, 1 Medical dose, On Branch Fri05/02/23 at 1530, Routine HYDROcodone 2022-0 2022- No 1{tbl} 1 tablet, Univers -acetaminop 05-02 Oral, ity of hen (NORCO 17:15: 17:38 ONCE, 1 [place] 5) 5-325 mg 00 :00 dose, On Medi keily tablet 1 Fri05/02/23 Branc h tablet at 1215, Routine, PACU HYDROmorpho 2022-2022- No .2mg 0.2 mg, Un yolanda ne 05-02 Slow IV ity of (DILAUDID) 17:01: 19:04 Push, [place] injection 11 :08 Q5MIN PRN, Medi keily 0.2 mg 10 doses, Branch Starting on Fri05/02/23 at 1201, Until Fri05/02/23 at 1404, Routine, Pain (scale 7-10), PACU
Us e approved by (Faculty): PACU USE -ANESTHESI A SERVICE-HY DROMORPHON E INJECTIONS FENTanyl PF 2022-2022- No 25ug 25 mcg, Un yolanda (SUBLIMAZE 05-02 Slow IV ity o f (PF)) 17:01: 18:02 Push, [place] injection 11 :00 Q5MIN PRN, Medi keily 25 mcg 4 doses, Branch Starting on Fri05/02/23 at 1201, Until Discontinu ed, Routine, Pain (scale 4-6), PACU bupivacaine 2022-0 2022- No PRN, Unive rs (preserv 05-02 Starting ity of free) 16:55: 17:31 on Fri [place] (SENSORCAIN 00 :30 05/02/23 at Med ical E MPF) 0.25 1155, Branch % (2.5 Intra-op mg/mL) 10 mL, BUPivacaine liposome (PF) (EXPAREL (PF)) 1.3 % (13.3 mg/mL) 133 mg morpHINE (2 2022-0 Yes 2mg 2 mg, Slow Univers mg/mL) 05-02 IV Push, ity of injection 2 16:51: Q2HPRN, [place] mg 45 Starting Medical on Fri Branch 05/02/23 at 1151, Until Discontinu ed, Routine, Pain (scale 7-10) morpHINE (2 2022-0 Yes 2mg 2 mg, Slow Univers mg/mL) 05-02 IV Push, ity of injection 2 16:51: Q2HPRN, [place] mg 45 Starting Medical on Fri Branch 05/02/23 at 1151, Until Discontinu ed, Routine, Pain (scale 7-10) oxyCODONE 2022-0 Yes 5mg 5 mg, Univers immediate 05-02 Oral, ity of release 16:51: Q4HPRN, [place] tablet 5 mg 37 Starting Medi keily on Fri Branch 05/02/23 at 1151, Until Discontinu ed, Routine, Pain (scale 4-6)
Fa culty member approving Restricted medication : ALEX WILBURN oxyCODONE 2022-0 Yes 5mg 5 mg, Univers immediate 05-02 Oral, ity of release 16:51: Q4HPRN, [place] tablet 5 mg 37 Starting Medi keily on Fri Branch 05/02/23 at 1151, Until Discontinu ed, Routine, Pain (scale 4-6)
Fa culty member approving Restricted medication : ALEX WILBURN acetaminoph 2022-2022- No 325mg 325 mg, U nivers en 05-02 06-10 Oral, ity of (TYLENOL) 16:51: 14:45 Q6HPRN, [place] tablet 325 35 :51 Starting Medic al mg on Fri Branch 05/02/23 at 1151, Until 05/03/23 at 0945, Routine, Pain (scale 1-3) bisacodyL 2022-0 Yes 10mg 10 mg, Univer s (DULCOLAX) 05-02 Rectal, ity of suppository 16:49: QHSPRN, [place] 10 mg 23 Starting Medical on Fri Branch 05/02/23 at 1149, Until Discontinu ed, Routine, Constipati on bisacodyL 0 Yes 10mg 10 mg, Univer s (DULCOLAX) 05-02 Rectal, ity of suppository 16:49: QHSPRN, [place] 10 mg 23 Starting Medical on Fri Branch 05/02/23 at 1149, Until Discontinu ed, Routine, Constipati on NaCl 0.9% 0 Yes 5mL 5 mL, Slow Un yolanda (NS) 05-02 IV Push, ity of injection 5 16:49: PRN - SEE [place] mL 22 INSTRUCTIO Medical NS, Branch Starting on Fri05/02/23 at 1149, Until Discontinu ed, 10 mL NaCl 0.9% Yes 5mL 5 mL, Slow Un yolanda (NS) 05-02 IV Push, ity of injection 5 16:49: PRN - SEE [place] mL 22 [facility], Branch Starting on Fri05/02/23 at 1149, Until Discontinu ed, 10 mL thrombin 2022- No PRN, Univers topical 05-02 Starting ity of solution 14:38: 17:31 on Fri [place] 00 :30 05/02/23 at Medical 0938, Branch Until 05/02/23 at 1231, Routine, Intra-op lidocaine-e 2022- No PRN, Unive rs pinephrine 05-02 Starting ity of (XYLOCAINE 14:32: 17:31 on Fri [place] WITH 00 :30 05/02/23 at [facility] EPINEPHRINE 0932, [place] ) 0.5 Until Fri %-1:200,000 05/02/23 at injection 1231, Routine, Intra-op vancomycin 2022- No PRN, Univer s (VANCOCIN) 05-02 Starting ity of 1,000 mg in 12:10: 17:31 on Fri [place] NaCl 0.9% 00 :30 05/02/23 at [facility] al (NS) 1,000 0710, [place] mL OR Intra-op irrigation aspirin 81 Yes 81mg Take 1 Unive rs mg chewable 6-09 tablet by ity of tablet 11:52: mouth in [place] 54 the Medical morning. [place] Cyanocobala Yes 1{tbl} Place 1 U nivers min -09 tablet ity of (VITAMIN 11:52: under the [place] B-12) 2,500 54 tongue Medica l mcg Subl daily. Branch multivit Yes 1{tbl} Take 1 Unive rs with 6-09 tablet by ity of min-folic 11:52: mouth [place] acid 54 daily. Medical (CENTRUM Branch ADULT 50 FRESH-FRUIT Y) 120 mcg Chew Magnesium Yes 1{tbl} Take 1 Univ ers 250 mg Tab 6-09 tablet by ity of 11:52: mouth. [address] aspirin 81 Yes 81mg Take 1 Unive rs mg chewable 6-09 tablet by ity of tablet 11:52: mouth in [place] [address] the Medical morning. Branch Cyanocobala Yes 1{tbl} Place 1 U nivers min 6-09 tablet ity of (VITAMIN 11:52: under the [place] B-12) 2,500 54 tongue Medica l mcg Subl daily. Branch multivit Yes 1{tbl} Take 1 Unive rs with 6-09 tablet by ity of min-folic 11:52: mouth [place] acid 54 daily. Medical ([facility] ADULT 50 FRESH-FRUIT Y) 120 mcg Chew Magnesium 2022-0 Yes 1{tbl} Take 1 Univ ers 250 mg Tab 6-09 tablet by ity of 11:52: mouth. [address] aspirin 81 0 Yes 81mg Take 1 Unive rs mg chewable 6-09 tablet by ity of tablet 11:52: mouth in [place] [address] the Medical morning. Branch Cyanocobala Yes 1{tbl} Place 1 U nivers min 6-09 tablet ity of (VITAMIN 11:52: under the [place] B-12) 2,500 54 tongue Medica l mcg Subl daily. Branch multivit Yes 1{tbl} Take 1 Unive rs with 6-09 tablet by ity of min-folic 11:52: mouth [place] acid 54 daily. Medical ([facility] ADULT 50 FRESH-FRUIT Y) 120 mcg Chew Magnesium 2022-0 Yes 1{tbl} Take 1 Univ ers 250 mg Tab 6-09 tablet by ity of 11:52: mouth. [address] aspirin 81 0 Yes 81mg Take 1 Unive rs mg chewable 6-09 tablet by ity of tablet 11:52: mouth in [place] [address] the Medical morning. Branch Cyanocobala Yes 1{tbl} Place 1 U nivers min 6-09 tablet ity of (VITAMIN 11:52: under the [place] B-12) 2,500 54 tongue Medica l mcg Subl daily. Branch multivit Yes 1{tbl} Take 1 Unive rs with 6-09 tablet by ity of min-folic 11:52: mouth [place] acid 54 daily. Medical (CENTRUM Branch ADULT 50 FRESH-FRUIT Y) 120 mcg Chew Magnesium Yes 1{tbl} Take 1 Univ ers 250 mg Tab 6-09 tablet by ity of 11:52: mouth. [place] 54 Medical Branch SITagliptin 2022-0 Yes [id number] TAKE 1 Univers phosphate 6-09 TABLET BY ity o f (NOVUVIA) 00:00: MOUTH [place] 50 mg 00 DAILY Medical tablet Branch INSULIN 2022-0 Yes [id number] ADMINISTER Univers ASPART 6-09 8 TO 14 ity of U-100 100 00:00: UNITS [place] unit/mL (3 00 UNDER THE Medi keily mL) SKIN THREE Branch injection TIMES DAILY SITagliptin 2022-0 Yes [id number] TAKE 1 Univers phosphate 6-09 TABLET BY ity o f (NOVUVIA) 00:00: MOUTH [place] 50 mg 00 DAILY Medical tablet Branch INSULIN 2022-0 Yes [id number] ADMINISTER Univers ASPART 6-09 8 TO 14 ity of U-100 100 00:00: UNITS [place] unit/mL (3 00 UNDER THE Medi keily mL) SKIN THREE Branch injection TIMES DAILY SITagliptin 2022-0 Yes [id number] TAKE 1 Univers phosphate 6-09 TABLET BY ity o f (NOVUVIA) 00:00: MOUTH [place] 50 mg 00 DAILY Medical tablet Branch INSULIN 0 Yes [id number] ADMINISTER Univers ASPART 6-09 8 TO 14 ity of U-100 100 00:00: UNITS [place] unit/mL (3 00 UNDER THE Medi keily mL) SKIN THREE Branch injection TIMES DAILY metoprolol 2022-0 Yes [id number] 25mg Take 1 U nivers succinate 6-06 tablet by ity o f XL 25 mg 24 00:00: mouth in [place] hr tablet 00 the Medical morning Branch and 1 tablet in the evening. metoprolol 2022-0 Yes [id number] 25mg Take 1 U nivers succinate 6-06 tablet by ity o f XL 25 mg 24 00:00: mouth in [place] hr tablet 00 the Medical morning Branch and 1 tablet in the evening. metoprolol 2022-0 Yes [id number] 25mg Take 1 U nivers succinate 6-06 tablet by ity o f XL 25 mg 24 00:00: mouth in [place] hr tablet 00 the Medical morning Branch and 1 tablet in the evening. metoprolol 2022-0 Yes [id number] 25mg Take 1 U nivers succinate 6-06 tablet by ity o f XL 25 mg 24 00:00: mouth in [place] hr tablet 00 the Medical morning Branch and 1 tablet in the evening. levothyroxi 2022-0 Yes 50ug TAKE 1 Univ ers ne 50 mcg 6-02 TABLET BY ity o f tablet 00:00: MOUTH [place] 00 EVERY Medical MORNING Branch levothyroxi 2022-0 Yes 50ug TAKE 1 Univ ers ne 50 mcg 6-02 TABLET BY ity o f tablet 00:00: MOUTH [place] 00 EVERY Medical MORNING Branch levothyroxi 2022-0 Yes 50ug TAKE 1 Univ ers ne 50 mcg 6-02 TABLET BY ity o f tablet 00:00: MOUTH [place] 00 EVERY Medical MORNING Branch levothyroxi 2022-0 Yes 50ug TAKE 1 Univ ers ne 50 mcg 6-02 TABLET BY ity o f tablet 00:00: MOUTH [place] 00 EVERY Medical MORNING Branch levothyroxi 2022-0 Yes 50ug TAKE 1 Univ ers ne 50 mcg 6-02 TABLET BY ity o f tablet 00:00: MOUTH [place] 00 EVERY Medical MORNING Branch aspirin 81 2022-0 Yes 81mg Take 1 Unive rs mg chewable 5-30 tablet by ity of tablet 14:50: mouth in [place] [address] the Medical morning. Branch aspirin 81 2022-0 Yes 81mg Take 1 Unive rs mg chewable 5-30 tablet by ity of tablet 14:50: mouth in [place] [address] the Medical morning. Branch aspirin 81 2022-0 Yes 81mg Take 1 Unive rs mg chewable 5-30 tablet by ity of tablet 14:50: mouth in [place] [address] the Medical morning. Branch aspirin 81 2022-0 Yes 81mg Take 1 Unive rs mg chewable 5-30 tablet by ity of tablet 14:50: mouth in [place] [address] the Medical morning. Branch aspirin 81 2022-0 Yes 81mg Take 1 Unive rs mg chewable 5-30 tablet by ity of tablet 14:50: mouth in [place] [address] the Medical morning. Branch aspirin 81 2022-0 Yes 81mg Take 1 Unive rs mg chewable 5-30 tablet by ity of tablet 14:50: mouth in [place] [address] the Medical morning. Branch FREESTYLE 2022-0 Yes APPLY 1 Unive rs PACO 14 5-28 SENSOR ity of DAY SENSOR 00:00: EVERY 14 [place] Kit 00 DAYS Medical Branch FREESTYLE 0 Yes APPLY 1 Unive rs PACO 14 5-28 SENSOR ity of DAY SENSOR 00:00: EVERY 14 [place] Kit 00 DAYS Medical Branch FREESTYLE 0 Yes APPLY 1 Unive rs PACO 14 5-28 SENSOR ity of DAY SENSOR 00:00: EVERY 14 [place] Kit 00 DAYS Medical Branch FREESTYLE 0 Yes APPLY 1 Unive rs PACO 14 5-28 SENSOR ity of DAY SENSOR 00:00: EVERY 14 [place] Kit 00 DAYS Medical Branch FREESTYLE 0 Yes APPLY 1 Unive rs PACO 14 5-28 SENSOR ity of DAY SENSOR 00:00: EVERY 14 [place] Kit 00 DAYS Medical Branch FREESTYLE 0 Yes APPLY 1 Unive rs PACO 14 5-28 SENSOR ity of DAY SENSOR 00:00: EVERY 14 [place] Kit 00 DAYS Medical Branch FREESTYLE 0 Yes APPLY 1 Unive rs PACO 14 5-28 SENSOR ity of DAY SENSOR 00:00: EVERY 14 [place] Kit 00 DAYS Medical Branch FREESTYLE 0 Yes APPLY 1 Unive rs PACO 14 5-28 SENSOR ity of DAY SENSOR 00:00: EVERY 14 [place] Kit 00 DAYS Medical Branch FREESTYLE 0 Yes APPLY 1 Unive rs PACO 14 5-28 SENSOR ity of DAY SENSOR 00:00: EVERY 14 [place] Kit 00 DAYS Medical Branch FREESTYLE 0 Yes APPLY 1 Unive rs PACO 14 5-28 SENSOR ity of DAY SENSOR 00:00: EVERY 14 [place] Kit 00 DAYS Medical Branch FREESTYLE 0 Yes APPLY 1 Unive rs PACO 14 5-28 SENSOR ity of DAY SENSOR 00:00: EVERY 14 [place] Kit 00 DAYS Medical Branch FENTanyl PF 2022- No Slow IV Un yolanda (SUBLIMAZE 04-15- Push, ity of (PF)) 16:26: 16:26 TITRATE - [place] injection 00 :00 FOR Medical PROCEDURE Branch USE, 1 dose, Starting on Fri04/15/23 at 1126, Until Fri04/15/23 at 1126, Routine FENTanyl PF 2022- No Slow IV Un yolanda (SUBLIMAZE 04-15 05-23 Push, ity of (PF)) 16:: : TITRATE - [place] injection 00 :00 FOR Medical PROCEDURE Branch USE, 1 dose, Starting on 04/15/23 at 1126, Until 04/15/23 at 1126, Routine FENTanyl PF 2022-2022- No Slow IV Un yolanda (SUBLIMAZE 5- 05-23 Push, ity of (PF)) 16:: : TITRATE - [place] injection 00 :00 FOR Medical PROCEDURE Branch USE, 1 dose, Starting on 04/15/23 at 1126, Until 04/15/23 at 1126, Routine FENTanyl PF 2022-2022- No Slow IV Un yolanda (SUBLIMAZE - 05- Push, ity of (PF)) 16: : TITRATE - [place] injection 00 :00 FOR Medical PROCEDURE Branch USE, 1 dose, Starting on 04/15/23 at 1126, Until 04/15/23 at 1126, Routine FENTanyl PF 2022-2022- No Slow IV Un yolanda (SUBLIMAZE 04-15 05- Push, ity of (PF)) 16:: : TITRATE - [place] injection 00 :00 FOR Medical PROCEDURE Branch USE, 1 dose, Starting on 04/15/23 at 1126, Until 04/15/23 at 1126, Routine lidocaine 2022-2022- No [id number] 10mL Uni vers 1% (PF) 04-15- ity of (XYLOCAINE) 16:25: 16:26 [place] injection 00 :00 Medical 10 mL Branch bupivacaine 2022-2022- No [id number] 3mL U nivers (preserv 04-15- ity of free) 16:25: 16:25 [place] (SENSORCAIN 00 :00 Medical E MPF) 0.25 Branch % (2.5 mg/mL) injection 3 mL bupivacaine 0 2022- No [id number] 3mL 3 mL, Univers (preserv 04-15-23 Infiltrati ity of free) 16:25: 16:25 on, ONCE, [place] (SENSORCAIN 00 :00 1 dose, On Me dical E MPF) 0.25 Tue Branch % (2.5 04/15/23 at mg/mL) 1130, injection 3 Routine mL lidocaine 2023-0 3- No [id number] 10mL 10 mL, U nivers 1% (PF) 04-15 Infiltrati ity o f (XYLOCAINE) 16:25: 16:26 on, ONCE, [place] injection 00 :00 1 dose, On Medi keily 10 mL Tue Branch 04/15/23 at 1130, Routine lidocaine 2023-0 2022- No [id number] 10mL Uni vers 1% (PF) 04-15 ity of (XYLOCAINE) 16:25: 16:26 [place] injection 00 :00 Medical 10 mL Branch bupivacaine 3-0 2022- No [id number] 3mL U nivers (preserv 04-15 ity of free) 16:25: 16:25 [place] (SENSORCAIN 00 :00 Medical E MPF) 0.25 Branch % (2.5 mg/mL) injection 3 mL bupivacaine 2022-0 2022- No [id number] 3mL 3 mL, Univers (preserv 04-15 Infiltrati ity of free) 16:25: 16:25 on, ONCE, [place] (SENSORCAIN 00 :00 1 dose, On Me dical E MPF) 0.25 Tue Branch % (2.5 04/15/23 at mg/mL) 1130, injection 3 Routine mL lidocaine 3-0 2022- No [id number] 10mL 10 mL, U nivers 1% (PF) 04-15 Infiltrati ity o f (XYLOCAINE) 16:25: 16:26 on, ONCE, [place] injection 00 :00 1 dose, On Medi keily 10 mL Tue Branch 04/15/23 at 1130, Routine lidocaine 3-0 2022- No [id number] 10mL Uni vers 1% (PF) 04-15 ity of (XYLOCAINE) 16:25: 16:26 [place] injection 00 :00 Medical 10 mL Branch bupivacaine 2023-0 2022- No [id number] 3mL U nivers (preserv 04-15 ity of free) 16:25: 16:25 [place] (SENSORCAIN 00 :00 Medical E MPF) 0.25 Branch % (2.5 mg/mL) injection 3 mL bupivacaine 2023-0 2023- No [id number] 3mL 3 mL, Univers (preserv 04-15- Infiltrati ity of free) 16:25: 16:25 on, ONCE, [place] (SENSORCAIN 00 :00 1 dose, On Me dical E MPF) 0.25 Tue Branch % (2.5 04/15/23 at mg/mL) 1130, injection 3 Routine mL lidocaine 2023-0 2023- No [id number] 10mL 10 mL, U nivers 1% (PF) 04-15 Infiltrati ity o f (XYLOCAINE) 16:25: 16:26 on, ONCE, [place] injection 00 :00 1 dose, On Medi keily 10 mL Tue Branch 04/15/23 at 1130, Routine lidocaine 2023-0 2022- No [id number] 10mL Uni vers 1% (PF) 04-15 ity of (XYLOCAINE) 16:25: 16:26 [place] injection 00 :00 Medical 10 mL Branch bupivacaine 2023-0 3- No [id number] 3mL U nivers (preserv 04-15- ity of free) 16:25: 16:25 [place] (SENSORCAIN 00 :00 Medical E MPF) 0.25 Branch % (2.5 mg/mL) injection 3 mL bupivacaine 2023-0 3- No [id number] 3mL 3 mL, Univers (preserv 04-15- Infiltrati ity of free) 16:25: 16:25 on, ONCE, [place] (SENSORCAIN 00 :00 1 dose, On Me dical E MPF) 0.25 Tue Branch % (2.5 04/15/23 at mg/mL) 1130, injection 3 Routine mL lidocaine 2023-0 2023- No [id number] 10mL 10 mL, U nivers 1% (PF) 04-15 Infiltrati ity o f (XYLOCAINE) 16:25: 16:26 on, ONCE, [place] injection 00 :00 1 dose, On Medi keily 10 mL Tue Branch 04/15/23 at 1130, Routine lidocaine 2023-0 2023- No [id number] 10mL Uni vers 1% (PF) 04-15 ity of (XYLOCAINE) 16:25: 16:26 [place] injection 00 :00 Medical 10 mL Branch bupivacaine 0 2022- No [id number] 3mL U nivers (preserv 04-15 ity of free) 16:25: 16:25 [place] (SENSORCAIN 00 :00 Medical E MPF) 0.25 Branch % (2.5 mg/mL) injection 3 mL bupivacaine 0 2022- No [id number] 3mL 3 mL, Univers (preserv 04-15 Infiltrati ity of free) 16:25: 16:25 on, ONCE, [place] (SENSORCAIN 00 :00 1 dose, On Me dical E MPF) 0.25 Tue Branch % (2.5 04/15/23 at mg/mL) 1130, injection 3 Routine mL lidocaine 2022- No [id number] 10mL 10 mL, U nivers 1% (PF) 04-15 Infiltrati ity o f (XYLOCAINE) 16:25: 16:26 on, ONCE, [place] injection 00 :00 1 dose, On Medi keily 10 mL Tue Branch 04/15/23 at 1130, Routine midazolam 2022-0 2022- No IV Push, Uni vers (VERSED) 04-15 TITRATE - ity o f injection 16:24: 16:24 FOR [place] 00 :00 PROCEDURE Medical USE, 1 Branch dose, Starting on 04/15/23 at 1124, Until 04/15/23 at 1124, Routine midazolam 202-0 2022- No IV Push, Uni vers (VERSED) 04-15 TITRATE - ity o f injection 16:24: 16:24 FOR [place] 00 :00 PROCEDURE Medical USE, 1 Branch dose, Starting on 04/15/23 at 1124, Until 04/15/23 at 1124, Routine midazolam 202-0 202- No IV Push, Uni vers (VERSED) 04-15 TITRATE - ity o f injection 16:24: 16:24 FOR [place] 00 :00 PROCEDURE Medical USE, 1 Branch dose, Starting on 04/15/23 at 1124, Until 04/15/23 at 1124, Routine midazolam 2023-0 202- No IV Push, Uni vers (VERSED) 04-15 TITRATE - ity o f injection 16:24: 16:24 FOR [place] 00 :00 PROCEDURE Medical USE, 1 Branch dose, Starting on 04/15/23 at 1124, Until 04/15/23 at 1124, Routine midazolam 2023-0 2023- No IV Push, Uni vers (VERSED) 04-15 TITRATE - ity o f injection 16:24: 16:24 FOR [place] 00 :00 PROCEDURE Medical USE, 1 Branch dose, Starting on 04/15/23 at 1124, Until 04/15/23 at 1124, Routine midazolam 2023-0 2023- No IV Push, Uni vers (VERSED) 04-15 TITRATE - ity o f injection 16:21: 16:21 FOR [place] 00 :00 PROCEDURE Medical USE, 1 Branch dose, Starting on 04/15/23 at 1121, Until 04/15/23 at 1121, Routine midazolam 2023-0 2023- No IV Push, Uni vers (VERSED) 04-15 TITRATE - ity o f injection 16:21: 16:21 FOR [place] 00 :00 PROCEDURE Medical USE, 1 Branch dose, Starting on 04/15/23 at 1121, Until 04/15/23 at 1121, Routine midazolam 2023-0 2023- No IV Push, Uni vers (VERSED) 04-15 TITRATE - ity o f injection 16:21: 16:21 FOR [place] 00 :00 PROCEDURE Medical USE, 1 Branch dose, Starting on 04/15/23 at 1121, Until 04/15/23 at 1121, Routine midazolam 2023-0 2023- No IV Push, Uni vers (VERSED) 04-15 TITRATE - ity o f injection 16:21: 16:21 FOR [place] 00 :00 PROCEDURE Medical USE, 1 Branch dose, Starting on 04/15/23 at 1121, Until 04/15/23 at 1121, Routine midazolam 2023-0 2023- No IV Push, Uni vers (VERSED) 04-15 TITRATE - ity o f injection 16:21: 16:21 FOR [place] 00 :00 PROCEDURE Medical USE, 1 Branch dose, Starting on Fri04/15/23 at 1121, Until Fri04/15/23 at 1121, Routine lactated 2022-2022- No [id number] 500mL Uni vers ringers IV 04-15 ity of infusion 15:45: 16:55 [place] 500 mL 00 :00 Medical Branch lactated 2022-2022- No [id number] 500mL at 20 Un yolanda ringers IV 04-15 mL/hr, 500 it y of infusion 15:45: 16:55 mL, IV [place] 500 mL 00 :00 Infusion, Medical ONCE, 1 Branch dose, On Fri04/15/23 at 1045, Routine lactated 2022- No [id number] 500mL Uni vers ringers IV 04-15 ity of infusion 15:45: 16:55 [place] 500 mL 00 :00 Medical Branch lactated 2022-2022- No [id number] 500mL at 20 Un yolanda ringers IV 04-15 mL/hr, 500 it y of infusion 15:45: 16:55 mL, IV [place] 500 mL 00 :00 Infusion, Medical ONCE, 1 Branch dose, On Fri04/15/23 at 1045, Routine lactated 2022- No [id number] 500mL Uni vers ringers IV 04-15 ity of infusion 15:45: 16:55 [place] 500 mL 00 :00 Medical Branch lactated 2022- No [id number] 500mL at 20 Un yolanda ringers IV 04-15 mL/hr, 500 it y of infusion 15:45: 16:55 mL, IV [place] 500 mL 00 :00 Infusion, Medical ONCE, 1 Branch dose, On Fri04/15/23 at 1045, Routine lactated 2022-2022- No [id number] 500mL Uni vers ringers IV 04-15 ity of infusion 15:45: 16:55 [place] 500 mL 00 :00 Medical Branch lactated 2022-2022- No [id number] 500mL at 20 Un yolanda ringers IV 04-15- mL/hr, 500 it y of infusion 15:45: 16:55 mL, IV [place] 500 mL 00 :00 Infusion, Medical ONCE, 1 Branch dose, On Fri04/15/23 at 1045, Routine lactated 3-0 3- No [id number] 500mL Uni vers ringers IV 04-15 ity of infusion 15:45: 16:55 [place] 500 mL 00 :00 Medical Branch lactated 3-0 2023- No [id number] 500mL at 20 Un yolanda ringers IV 04-15 mL/hr, 500 it y of infusion 15:45: 16:55 mL, IV [place] 500 mL 00 :00 Infusion, Medical ONCE, 1 Branch dose, On Fri04/15/23 at 1045, Routine atorvastati 3-0 Yes 80mg Take 1 Univ ers n 80 mg 5-15 tablet by ity of tablet 00:00: mouth at [place] [address] bedtime. Medical Indication Branch s: CAD atorvastati 2023-0 Yes 80mg Take 1 Univ ers n 80 mg 5-15 tablet by ity of tablet 00:00: mouth at [place] [address] bedtime. Medical Indication Branch s: CAD atorvastati 2023-0 Yes 80mg Take 1 Univ ers n 80 mg 5-15 tablet by ity of tablet 00:00: mouth at [place] [address] bedtime. Medical Indication Branch s: CAD atorvastati 2023-0 Yes 80mg Take 1 Univ ers n 80 mg 5-15 tablet by ity of tablet 00:00: mouth at [place] [address] bedtime. Medical Indication Branch s: CAD atorvastati 2023-0 Yes 80mg Take 1 Univ ers n 80 mg 5-15 tablet by ity of tablet 00:00: mouth at [place] [address] bedtime. Medical Indication Branch s: CAD atorvastati 2023-0 Yes 80mg Take 1 Univ ers n 80 mg 5-15 tablet by ity of tablet 00:00: mouth at [place] [address] bedtime. Medical Indication Branch s: CAD atorvastati 2023-0 Yes 80mg Take 1 Univ ers n 80 mg 5-15 tablet by ity of tablet 00:00: mouth at [place] [address] bedtime. Medical Indication Branch s: CAD atorvastati 2023-0 Yes 80mg Take 1 Univ ers n 80 mg 5-15 tablet by ity of tablet 00:00: mouth at [place] [address] bedtime. Medical Indication Branch s: CAD atorvastati 2023-0 Yes 80mg Take 1 Univ ers n 80 mg 5-15 tablet by ity of tablet 00:00: mouth at [place] [address] bedtime. Medical Indication Branch s: CAD atorvastati 2023-0 Yes 80mg Take 1 Univ ers n 80 mg 5-15 tablet by ity of tablet 00:00: mouth at [place] [address] bedtime. Medical Indication Branch s: CAD atorvastati 2023-0 Yes 80mg Take 1 Univ ers n 80 mg 5-15 tablet by ity of tablet 00:00: mouth at [place] [address] bedtime. Medical Indication Branch s: CAD atorvastati 2023-0 Yes 80mg Take 1 Univ ers n 80 mg 5-15 tablet by ity of tablet 00:00: mouth at [place] [address] bedtime. Medical Indication Branch s: CAD atorvastati 2023-0 Yes 80mg Take 1 Univ ers n 80 mg 5-15 tablet by ity of tablet 00:00: mouth at [place] [address] bedtime. Medical Indication Branch s: CAD atorvastati 2023-0 Yes 80mg Take 1 Univ ers n 80 mg 5-15 tablet by ity of tablet 00:00: mouth at [place] [address] bedtime. Medical Indication Branch s: CAD atorvastati 2023-0 Yes 80mg Take 1 Univ ers n 80 mg 5-15 tablet by ity of tablet 00:00: mouth at [place] [address] bedtime. Medical Indication Branch s: CAD atorvastati 2023-0 Yes 80mg Take 1 Univ ers n 80 mg 5-15 tablet by ity of tablet 00:00: mouth at [place] [address] bedtime. Medical Indication Branch s: CAD atorvastati 2023-0 Yes 80mg Take 1 Univ ers n 80 mg 5-15 tablet by ity of tablet 00:00: mouth at [place] [address] bedtime. Medical Indication Branch s: CAD atorvastati 2023-0 Yes 80mg Take 1 Univ ers n 80 mg 5-15 tablet by ity of tablet 00:00: mouth at [place] [address] bedtime. Medical Indication Branch s: CAD atorvastati 2023-0 Yes 80mg Take 1 Univ ers n 80 mg 5-15 tablet by ity of tablet 00:00: mouth at [place] [address] bedtime. Medical Indication Branch s: CAD atorvastati 2023-0 Yes 80mg Take 1 Univ ers n 80 mg 5-15 tablet by ity of tablet 00:00: mouth at [place] [address] bedtime. Medical Indication Branch s: CAD atorvastati 2023-0 Yes 80mg Take 1 Univ ers n 80 mg 5-15 tablet by ity of tablet 00:00: mouth at [place] [address] bedtime. Medical Indication Branch s: CAD atorvastati 2023-0 Yes 80mg Take 1 Univ ers n 80 mg 5-15 tablet by ity of tablet 00:00: mouth at [place] [address] bedtime. Medical Indication Branch s: CAD atorvastati 2023-0 Yes 80mg Take 1 Univ ers n 80 mg 5-15 tablet by ity of tablet 00:00: mouth at [place] [address] bedtime. Medical Indication Branch s: CAD atorvastati 3-0 Yes 80mg Take 1 Univ ers n 80 mg 5-15 tablet by ity of tablet 00:00: mouth at [place] [address] bedtime. Medical Indication Branch s: CAD atorvastati 2023-0 Yes 80mg Take 1 Univ ers n 80 mg 5-15 tablet by ity of tablet 00:00: mouth at [place] [address] bedtime. Medical Indication Branch s: CAD atorvastati 3-0 Yes 80mg Take 1 Univ ers n 80 mg 5-15 tablet by ity of tablet 00:00: mouth at [place] [address] bedtime. Medical Indication Branch s: CAD atorvastati 3-0 Yes 80mg Take 1 Univ ers n 80 mg 5-15 tablet by ity of tablet 00:00: mouth at [place] [address] bedtime. Medical Indication Branch s: CAD LIDOCAINE 5 2022-0 Yes [id number] UNWRAP AND [facility] % (700 5-09 2 APPLY 1 ity of mg/patch) 00:00: PATCH TO [place] patch 00 THE Medical AFFECTED Branch AREA(S) OF SKIN IN THE MORNING LIDOCAINE 5 3-0 Yes [id number] UNWRAP AND Univers % (700 5-09 2 APPLY 1 ity of mg/patch) 00:00: PATCH TO [place] patch 00 THE Medical AFFECTED Branch AREA(S) OF SKIN IN THE MORNING losartan 3-0 Yes [id number] 100mg Take 1 [facility] 100 mg -09 tablet by ity of tablet 00:00: mouth [place] 00 every Medical morning. Branch isosorbide 2022-0 Yes 30mg Take 1 Unive rs mononitrate 5-09 tablet by ity of 30 mg 24 hr 00:00: mouth in [place] tablet 00 the Medical morning. Branch Indication s: CAD LIDOCAINE 5 3-0 Yes [id number] UNWRAP AND Univers % (700 5-09 2 APPLY 1 ity of mg/patch) 00:00: PATCH TO [place] patch 00 THE Medical AFFECTED Branch AREA(S) OF SKIN IN THE MORNING losartan 2022-0 Yes [id number] 100mg Take 1 [facility] 100 mg 5-09 tablet by ity of tablet 00:00: mouth [place] 00 every Medical morning. Branch isosorbide 3-0 Yes 30mg Take 1 Unive rs mononitrate 5-09 tablet by ity of 30 mg 24 hr 00:00: mouth in [place] tablet 00 the Medical morning. Branch Indication s: CAD LIDOCAINE 5 3-0 Yes [id number] UNWRAP AND [facility] % (700 5- 2 APPLY 1 ity of mg/patch) 00:00: PATCH TO [place] patch 00 THE Medical AFFECTED Branch AREA(S) OF SKIN IN THE MORNING losartan 2022-0 Yes [id number] 100mg Take 1 [facility] 100 mg 5-09 tablet by ity of tablet 00:00: mouth [place] 00 every Medical morning. Branch isosorbide 3-0 Yes 30mg Take 1 Unive rs mononitrate 5-09 tablet by ity of 30 mg 24 hr 00:00: mouth in [place] tablet 00 the Medical morning. Branch Indication s: CAD LIDOCAINE 5 3-0 Yes [id number] UNWRAP AND Univers % (700 5- 2 APPLY 1 ity of mg/patch) 00:00: PATCH TO [place] patch 00 THE Medical AFFECTED Branch AREA(S) OF SKIN IN THE MORNING losartan 2022-0 Yes [id number] 100mg Take 1 [facility] 100 mg 5-09 tablet by ity of tablet 00:00: mouth [place] 00 every Medical morning. Branch isosorbide 2023-0 Yes 30mg Take 1 Unive rs mononitrate 5-09 tablet by ity of 30 mg 24 hr 00:00: mouth in [place] tablet 00 the Medical morning. Branch Indication s: CAD LIDOCAINE 5 3-0 Yes [id number] UNWRAP AND Univers % (700 5-09 2 APPLY 1 ity of mg/patch) 00:00: PATCH TO [place] patch 00 THE Medical AFFECTED Branch AREA(S) OF SKIN IN THE MORNING losartan 2022-0 Yes [id number] 100mg Take 1 Un [facility] 100 mg 5-09 tablet by ity of tablet 00:00: mouth [place] 00 every Medical morning. Branch isosorbide 2023-0 Yes 30mg Take 1 Unive rs mononitrate 5-09 tablet by ity of 30 mg 24 hr 00:00: mouth in [place] tablet 00 the Medical morning. Branch Indication s: CAD LIDOCAINE 5 3-0 Yes [id number] UNWRAP AND Univers % (700 5-09 2 APPLY 1 ity of mg/patch) 00:00: PATCH TO [place] patch 00 THE Medical AFFECTED Branch AREA(S) OF SKIN IN THE MORNING losartan 2022-0 Yes [id number] 100mg Take 1 Un [facility]anda 100 mg 5-09 tablet by ity of tablet 00:00: mouth [place] 00 every Medical morning. Branch isosorbide 3-0 Yes 30mg Take 1 Unive rs mononitrate 5-09 tablet by ity of 30 mg 24 hr 00:00: mouth in [place] tablet 00 the Medical morning. Branch Indication s: CAD LIDOCAINE 5 3-0 Yes [id number] UNWRAP AND Univers % (700 5-09 2 APPLY 1 ity of mg/patch) 00:00: PATCH TO [place] patch 00 THE Medical AFFECTED Branch AREA(S) OF SKIN IN THE MORNING losartan 3-0 Yes [id number] 100mg Take 1 Un [facility] 100 mg 5-09 tablet by ity of tablet 00:00: mouth [place] 00 every Medical morning. Branch isosorbide 2023-0 Yes 30mg Take 1 Unive rs mononitrate 5-09 tablet by ity of 30 mg 24 hr 00:00: mouth in [place] tablet 00 the Medical morning. Branch Indication s: CAD LIDOCAINE 5 3-0 Yes [id number] UNWRAP AND Univers % (700 5-09 2 APPLY 1 ity of mg/patch) 00:00: PATCH TO [place] patch 00 THE Medical AFFECTED Branch AREA(S) OF SKIN IN THE MORNING losartan 3-0 Yes [id number] 100mg Take 1 Un [facility] 100 mg 5-09 tablet by ity of tablet 00:00: mouth [place] 00 every Medical morning. Branch isosorbide 2023-0 Yes 30mg Take 1 Unive rs mononitrate 5-09 tablet by ity of 30 mg 24 hr 00:00: mouth in [place] tablet 00 the Medical morning. Branch Indication s: CAD LIDOCAINE 5 3-0 Yes [id number] UNWRAP AND Univers % (700 5-09 2 APPLY 1 ity of mg/patch) 00:00: PATCH TO [place] patch 00 THE Medical AFFECTED Branch AREA(S) OF SKIN IN THE MORNING losartan 2022-0 Yes [id number] 100mg Take 1 Un [facility] 100 mg 5-09 tablet by ity of tablet 00:00: mouth [place] 00 every Medical morning. Branch isosorbide 3-0 Yes 30mg Take 1 Unive rs mononitrate 5-09 tablet by ity of 30 mg 24 hr 00:00: mouth in [place] tablet 00 the Medical morning. Branch Indication s: CAD LIDOCAINE 5 3-0 Yes [id number] UNWRAP AND Univers % (700 5-09 2 APPLY 1 ity of mg/patch) 00:00: PATCH TO [place] patch 00 THE Medical AFFECTED Branch AREA(S) OF SKIN IN THE MORNING losartan 2022-0 Yes [id number] 100mg Take 1 Un [facility] 100 mg 5-09 tablet by ity of tablet 00:00: mouth [place] 00 every Medical morning. Branch isosorbide 3-0 Yes 30mg Take 1 Unive rs mononitrate 5-09 tablet by ity of 30 mg 24 hr 00:00: mouth in [place] tablet 00 the Medical morning. Branch Indication s: CAD LIDOCAINE 5 3-0 Yes [id number] UNWRAP AND Univers % (700 5-09 2 APPLY 1 ity of mg/patch) 00:00: PATCH TO [place] patch 00 THE Medical AFFECTED Branch AREA(S) OF SKIN IN THE MORNING losartan 3-0 Yes [id number] 100mg Take 1 Un [facility] 100 mg 5-09 tablet by ity of tablet 00:00: mouth [place] 00 every Medical morning. Branch isosorbide 2023-0 Yes 30mg Take 1 Unive rs mononitrate 5-09 tablet by ity of 30 mg 24 hr 00:00: mouth in [place] tablet 00 the Medical morning. Branch Indication s: CAD LIDOCAINE 5 3-0 Yes [id number] UNWRAP AND Univers % (700 5-09 2 APPLY 1 ity of mg/patch) 00:00: PATCH TO [place] patch 00 THE Medical AFFECTED Branch AREA(S) OF SKIN IN THE MORNING losartan 2022-0 Yes [id number] 100mg Take 1 Un [facility] 100 mg 5-09 tablet by ity of tablet 00:00: mouth [place] 00 every Medical morning. Branch isosorbide 2022-0 Yes 30mg Take 1 Unive rs mononitrate 5-09 tablet by ity of 30 mg 24 hr 00:00: mouth in [place] tablet 00 the Medical morning. Branch Indication s: CAD LIDOCAINE 5 2022-0 Yes [id number] UNWRAP AND Univers % (700 5-09 2 APPLY 1 ity of mg/patch) 00:00: PATCH TO [place] patch 00 THE Medical AFFECTED Branch AREA(S) OF SKIN IN THE MORNING losartan 0 Yes [id number] 100mg Take 1 Un [facility] 100 mg 5-09 tablet by ity of tablet 00:00: mouth [place] 00 every Medical morning. Branch isosorbide 2022-0 Yes 30mg Take 1 Unive rs mononitrate 5-09 tablet by ity of 30 mg 24 hr 00:00: mouth in [place] tablet 00 the Medical morning. Branch Indication s: CAD LIDOCAINE 5 2022-0 Yes [id number] UNWRAP AND Univers % (700 5- 2 APPLY 1 ity of mg/patch) 00:00: PATCH TO [place] patch 00 THE Medical AFFECTED Branch AREA(S) OF SKIN IN THE MORNING losartan 2022-0 Yes [id number] 100mg Take 1 Un [facility]anda 100 mg 5-09 tablet by ity of tablet 00:00: mouth [place] 00 every Medical morning. Branch isosorbide 2022-0 Yes 30mg Take 1 Unive rs mononitrate 5-09 tablet by ity of 30 mg 24 hr 00:00: mouth in [place] tablet 00 the Medical morning. Branch Indication s: CAD LIDOCAINE 5 2022-0 Yes [id number] UNWRAP AND Univers % (700 5-09 2 APPLY 1 ity of mg/patch) 00:00: PATCH TO [place] patch 00 THE Medical AFFECTED Branch AREA(S) OF SKIN IN THE MORNING losartan 2022-0 Yes [id number] 100mg Take 1 Un [facility] 100 mg 5-09 tablet by ity of tablet 00:00: mouth [place] 00 every Medical morning. Branch isosorbide 2023-0 Yes 30mg Take 1 Unive rs mononitrate 5-09 tablet by ity of 30 mg 24 hr 00:00: mouth in [place] tablet 00 the Medical morning. Branch Indication s: CAD LIDOCAINE 5 3-0 Yes [id number] UNWRAP AND Univers % (700 5-09 2 APPLY 1 ity of mg/patch) 00:00: PATCH TO [place] patch 00 THE Medical AFFECTED Branch AREA(S) OF SKIN IN THE MORNING losartan 2022-0 Yes [id number] 100mg Take 1 Un [facility] 100 mg 5-09 tablet by ity of tablet 00:00: mouth [place] 00 every Medical morning. Branch isosorbide 2023-0 Yes 30mg Take 1 Unive rs mononitrate 5-09 tablet by ity of 30 mg 24 hr 00:00: mouth in [place] tablet 00 the Medical morning. Branch Indication s: CAD LIDOCAINE 5 3-0 Yes [id number] UNWRAP AND Univers % (700 5-09 2 APPLY 1 ity of mg/patch) 00:00: PATCH TO [place] patch 00 THE Medical AFFECTED Branch AREA(S) OF SKIN IN THE MORNING losartan 2022-0 Yes [id number] 100mg Take 1 Un [facility] 100 mg 5-09 tablet by ity of tablet 00:00: mouth [place] 00 every Medical morning. Branch isosorbide 2023-0 Yes 30mg Take 1 Unive rs mononitrate 5-09 tablet by ity of 30 mg 24 hr 00:00: mouth in [place] tablet 00 the Medical morning. Branch Indication s: CAD LIDOCAINE 5 3-0 Yes [id number] UNWRAP AND Univers % (700 5-09 2 APPLY 1 ity of mg/patch) 00:00: PATCH TO [place] patch 00 THE Medical AFFECTED Branch AREA(S) OF SKIN IN THE MORNING losartan 3-0 Yes [id number] 100mg Take 1 Un [facility] 100 mg 5-09 tablet by ity of tablet 00:00: mouth [place] 00 every Medical morning. Branch isosorbide 2023-0 Yes 30mg Take 1 Unive rs mononitrate 5-09 tablet by ity of 30 mg 24 hr 00:00: mouth in [place] tablet 00 the Medical morning. Branch Indication s: CAD LIDOCAINE 5 3-0 Yes [id number] UNWRAP AND Univers % (700 5-09 2 APPLY 1 ity of mg/patch) 00:00: PATCH TO [place] patch 00 THE Medical AFFECTED Branch AREA(S) OF SKIN IN THE MORNING losartan 2022-0 Yes [id number] 100mg Take 1 Un [facility] 100 mg 5-09 tablet by ity of tablet 00:00: mouth [place] 00 every Medical morning. Branch isosorbide 3-0 Yes 30mg Take 1 Unive rs mononitrate 5-09 tablet by ity of 30 mg 24 hr 00:00: mouth in [place] tablet 00 the Medical morning. Branch Indication s: CAD LIDOCAINE 5 3-0 Yes [id number] UNWRAP AND Univers % (700 5-09 2 APPLY 1 ity of mg/patch) 00:00: PATCH TO [place] patch 00 THE Medical AFFECTED Branch AREA(S) OF SKIN IN THE MORNING losartan 2022-0 Yes [id number] 100mg Take 1 Un [facility] 100 mg 5-09 tablet by ity of tablet 00:00: mouth [place] 00 every Medical morning. Branch isosorbide 3-0 Yes 30mg Take 1 Unive rs mononitrate 5-09 tablet by ity of 30 mg 24 hr 00:00: mouth in [place] tablet 00 the Medical morning. Branch Indication s: CAD LIDOCAINE 5 3-0 Yes [id number] UNWRAP AND Univers % (700 5-09 2 APPLY 1 ity of mg/patch) 00:00: PATCH TO [place] patch 00 THE Medical AFFECTED Branch AREA(S) OF SKIN IN THE MORNING losartan 2022-0 Yes [id number] 100mg Take 1 Un [facility] 100 mg 5-09 tablet by ity of tablet 00:00: mouth [place] 00 every Medical morning. Branch isosorbide 2023-0 Yes 30mg Take 1 Unive rs mononitrate 5-09 tablet by ity of 30 mg 24 hr 00:00: mouth in [place] tablet 00 the Medical morning. Branch Indication s: CAD LIDOCAINE 5 3-0 Yes [id number] UNWRAP AND Univers % (700 5-09 2 APPLY 1 ity of mg/patch) 00:00: PATCH TO [place] patch 00 THE Medical AFFECTED Branch AREA(S) OF SKIN IN THE MORNING losartan 2022-0 Yes [id number] 100mg Take 1 Un [facility] 100 mg 5-09 tablet by ity of tablet 00:00: mouth [place] 00 every Medical morning. Branch isosorbide 3-0 Yes 30mg Take 1 Unive rs mononitrate 5-09 tablet by ity of 30 mg 24 hr 00:00: mouth in [place] tablet 00 the Medical morning. Branch Indication s: CAD LIDOCAINE 5 2022-0 Yes [id number] UNWRAP AND Univers % (700 5-09 2 APPLY 1 ity of mg/patch) 00:00: PATCH TO [place] patch 00 THE Medical AFFECTED Branch AREA(S) OF SKIN IN THE MORNING losartan 2022-0 Yes [id number] 100mg Take 1 Un yolanda 100 mg 5-09 tablet by [facility] of tablet 00:00: mouth [place] 00 every Medical morning. Branch isosorbide 3-0 Yes 30mg Take 1 Unive rs mononitrate 5-09 tablet by [facility] of 30 mg 24 hr 00:00: mouth in [place] tablet 00 the Medical morning. Branch Indication s: CAD LIDOCAINE 5 2022-0 Yes [id number] UNWRAP AND [facility] % (700 5-09 2 APPLY 1 [facility] mg/patch) 00:00: P[place] patch 00 THE Medical AFFECTED Branch AREA(S) OF SKIN IN THE MORNING losartan 2022-0 Yes [id number] 100mg Take 1 Un [place] 100 mg 5-09 tablet by ity of tablet 00:00: mouth [place] 00 every Medical morning. Branch isosorbide 3-0 Yes 30mg Take 1 [facility] mononitrate 5-09 tablet by it[facility] of 30 mg 24 hr 00:00: mouth in [place] tablet 00 the Medical morning. Branch Indication s: CAD LIDOCAINE 5 3-0 Yes [id number] UNWRAP AND [facility] % (700 5-09 2 APPLY 1 ity of mg/patch) 00:00[place] patch 00 THE Medical AFFECTED Branch AREA(S) OF SKIN IN THE MORNING losartan 2022-0 Yes [id number] 100mg Take 1 [facility] [place] 100 mg 5-09 tablet by ity of tablet 00:00: mouth [place] 00 every Medical morning. Branch isosorbide 2023-0 Yes 30mg Take 1 [facility] mononitrate 5-09 tablet by ity of 30 mg 24 hr 00:00: mouth in [place] tablet 00 the Medical morning. Branch Indication s: CAD LIDOCAINE 5 3-0 Yes [id number] UNWRAP AND [facility] % (700 5-09 2 APPLY 1 ity [facility] mg/patch) 00:00: [place] 00 THE Medical AFFECTED Branch AREA(S) OF SKIN IN THE MORNING losartan 2022-0 Yes [id number] 100mg Take 1 [facility] 100 mg 5-09 tablet by ity of tablet 00:00: mouth [place] 00 every Medical morning. Branch isosorbide 2023-0 Yes 30mg Take 1 [facility] mononitrate 5-09 tablet by [facility]y of 30 mg 24 hr 00:00: mouth in [place] tablet 00 the Medical morning. Branch Indication s: CAD LIDOCAINE 5 3-0 Yes [id number] UNWRAP AND [facility] % (700 5- 2 APPLY 1 [facility] mg/patch) 00:00: [place] patch 00 THE Medical AFFECTED Branch AREA(S) OF SKIN IN THE MORNING losartan 2022-0 Yes [id number] 100mg Take 1 [facility] [place] 100 mg 5-09 tablet by ity of tablet 00:00: mouth [place] 00 every Medical morning. Branch isosorbide 3-0 Yes 30mg Take 1 [facility] mononitrate 5-09 tablet by [facility] of 30 mg 24 hr 00:00: mouth in [place] tablet 00 the Medical morning. Branch Indication s: CAD LIDOCAINE 5 3-0 Yes [id number] UNWRAP AND [facility] % (700 5- 2 APPLY 1 it[facility] mg/patch) 00:00: [place] patch 00 THE Medical AFFECTED Branch AREA(S) OF SKIN IN THE MORNING losartan 3-0 Yes [id number] 100mg Take 1 [facility] [place] 100 mg 5-09 tablet by ity of tablet 00:00: mouth [place] 00 every Medical morning. Branch isosorbide 2023-0 Yes 30mg Take 1 [facility] mononitrate 5-09 tablet by [facility] of 30 mg 24 hr 00:00: mouth in [place] tablet 00 the Medical morning. Branch Indication s: CAD LIDOCAINE 5 3-0 Yes [id number] UNWRAP AND [facility] % (700 5-09 2 APPLY 1 ity [facility] mg/patch) 00:00: PATCH [place] patch 00 THE Medical AFFECTED Branch AREA(S) OF SKIN IN THE MORNING losartan 0 Yes [id number] 100mg Take 1 [facility] [place] 100 mg 5-09 tablet by ity of tablet 00:00: mouth [place] 00 every Medical morning. Branch isosorbide 0 Yes 30mg Take 1 [facility] mononitrate 5-09 tablet by [facility] of 30 mg 24 hr 00:00: mouth in [place] tablet 00 the Medical morning. Branch Indication s: CAD aspirin 81 0 Yes 81mg Take 81 mg U [facility] mg chewable 5-04 by mouth ity of tablet 15:53: daily. [address] aspirin 81 0 Yes 81mg Take 81 mg [facility] mg chewable 5-04 by mouth ity of tablet 15:53: daily. [address] aspirin 81 0 Yes 81mg Take 81 mg [facility] mg chewable 5-04 by mouth ity of tablet 15:53: daily. [address] aspirin 81 0 Yes 81mg Take 81 mg [facility] mg chewable 5-04 by mouth ity of tablet 15:53: daily. [address] aspirin 81 0 Yes 81mg Take 81 mg [facility] mg chewable 5-04 by mouth ity of tablet 15:53: daily. [address] aspirin 81 2022-0 Yes 81mg Take 81 mg U [facility] mg chewable 5-04 by mouth ity of tablet 15:53: daily. [address] aspirin 81 2022-0 Yes 81mg Take 81 mg U [facility] mg chewable 5-04 by mouth ity of tablet 15:53: daily. [address] aspirin 81 2022-0 Yes 81mg Take 81 mg U [facility] mg chewable 5-04 by mouth ity of tablet 15:53: daily. [address] aspirin 81 2022-0 Yes 81mg Take 81 mg [facility] mg chewable 5-04 by mouth ity of tablet 15:53: daily. [address] aspirin 81 2022-0 Yes 81mg Take 81 mg U [facility] mg chewable 5-04 by mouth ity of tablet 15:53: daily. [address] aspirin 81 2022-0 Yes 81mg Take 81 mg U [facility] mg chewable 5-04 by mouth ity of tablet 15:53: daily. [address] Branch aspirin 81 2022-0 Yes 81mg Take 81 mg U n[facility] mg chewable 5-04 by mouth ity of tablet 15:53: daily. [address] Branch aspirin 81 2022-0 Yes 81mg Take 81 mg U nivers mg chewable 5-04 by mouth ity of tablet 15:53: daily. [address] aspirin 81 2022-0 Yes 81mg Take 81 mg U [facility] mg chewable 5-04 by mouth ity of tablet 15:53: daily. [address] Branch aspirin 81 2022-0 Yes 81mg Take 81 mg U [facility]ivers mg chewable 5-04 by mouth ity of tablet 15:53: daily. [address] Branch aspirin 81 2022-0 Yes 81mg Take 81 mg U [facility]ivers mg chewable 5-04 by mouth ity of tablet 15:53: daily. [address] aspirin 81 2022-0 Yes 81mg Take 81 mg U [facility]ivers mg chewable 5-04 by mouth ity of tablet 15:53: daily. [address] aspirin 81 2022-0 Yes 81mg Take 81 mg U [facility]ivers mg chewable 5-04 by mouth ity of tablet 15:53: daily. [address] aspirin 81 2022-0 Yes 81mg Take 81 mg U [facility]ivers mg chewable 5-04 by mouth ity of tablet 15:53: daily. [address] aspirin 81 2022-0 Yes 81mg Take 81 mg U [facility]ivers mg chewable 5-04 by mouth ity of tablet 15:53: daily. [address] Branch aspirin 81 2022-0 Yes 81mg Take 81 mg [facility]ivers mg chewable 5-04 by mouth ity of tablet 15:53: daily. [address] aspirin 81 2022-0 Yes 81mg Take 81 mg [facility] nivers mg chewable 5-04 by mouth ity of tablet 15:53: daily. [address] aspirin 81 2022-0 Yes 81mg Take 81 mg [facility] nivers mg chewable 5-04 by mouth ity of tablet 15:53: daily. [address] aspirin 81 2022-0 Yes 81mg Take 81 mg [facility]ivers mg chewable 5-04 by mouth ity of tablet 15:53: daily. [address] aspirin 81 3-0 Yes 81mg Take 81 mg [facility] mg chewable 5-04 by mouth ity of tablet 15:53: daily. [address] Branch ezetimibe 2022-0 Yes [id number] 10mg Take 1 [facility] 10 mg 4-25 tablet by ity of tablet 00:00: mouth in [place] the Medical morning. Branch ezetimibe 2022-0 Yes [id number] 10mg Take 1 [facility] 10 mg 4-25 tablet by ity of tablet 00:00: mouth in [place] the Medical morning. Branch ezetimibe 2022-0 Yes [id number] 10mg Take 1 [facility] [place] 10 mg 4-25 tablet by ity of tablet 00:00: mouth in [place] the Medical morning. Branch ezetimibe 2022-0 Yes [id number] 10mg Take 1 [facility] [place] 10 mg 4-25 tablet by ity of tablet 00:00: mouth in [place] the Medical morning. Branch ezetimibe 2022-0 Yes [id number] 10mg Take 1 [facility] [place] 10 mg 4-25 tablet by ity of tablet 00:00: mouth in [place] the Medical morning. Branch ezetimibe 2022-0 Yes [id number] 10mg Take 1 [facility] [place] 10 mg 4-25 tablet by ity of tablet 00:00: mouth in [place] the Medical morning. Branch ezetimibe 2022-0 Yes [id number] 10mg Take 1 [facility] [place] 10 mg 4-25 tablet by ity of tablet 00:00: mouth in [place] the Medical morning. Branch ezetimibe 2022-0 Yes [id number] 10mg Take 1 [facility] [place] 10 mg 4-25 tablet by ity of tablet 00:00: mouth in [place] the Medical morning. Branch ezetimibe 3-0 Yes [id number] 10mg Take 1 [facility] [place] 10 mg 4-25 tablet by ity of tablet 00:00: mouth in [place] the Medical morning. Branch ezetimibe 3-0 Yes [id number] 10mg Take 1 [facility] [place] 10 mg 4-25 tablet by ity of tablet 00:00: mouth in [place] the Medical morning. Branch ezetimibe 3-0 Yes [id number] 10mg Take 1 [facility] [place] 10 mg 4-25 tablet by ity of tablet 00:00: mouth in [place] the Medical morning. Branch ezetimibe 2023-0 Yes [id number] 10mg Take 1 [facility] [place] 10 mg 4-25 tablet by ity of tablet 00:00: mouth in [place] the Medical morning. Branch ezetimibe 2023-0 Yes [id number] 10mg Take 1 [facility] [place] 10 mg 4-25 tablet by ity of tablet 00:00: mouth in [place] the Medical morning. Branch ezetimibe 2023-0 Yes [id number] 10mg Take 1 [facility] [place] 10 mg 4-25 tablet by ity of tablet 00:00: mouth in [place] the Medical morning. Branch ezetimibe 2023-0 Yes [id number] 10mg Take 1 [facility] [place] 10 mg 4-25 tablet by ity of tablet 00:00: mouth in [place] the Medical morning. Branch ezetimibe 2023-0 Yes [id number] 10mg Take 1 [facility] [place] 10 mg 4-25 tablet by ity of tablet 00:00: mouth in [place] the Medical morning. Branch ezetimibe 3-0 Yes [id number] 10mg Take 1 [facility] [place] 10 mg 4-25 tablet by ity of tablet 00:00: mouth in [place] the Medical morning. Branch ezetimibe 2023-0 Yes [id number] 10mg Take 1 [facility] [place] 10 mg 4-25 tablet by ity of tablet 00:00: mouth in [place] the Medical morning. Branch ezetimibe 2023-0 Yes [id number] 10mg Take 1 [facility] [place] 10 mg 4-25 tablet by ity of tablet 00:00: mouth in [place] the Medical morning. Branch ezetimibe 2023-0 Yes [id number] 10mg Take 1 [facility] [place] 10 mg 4-25 tablet by ity of tablet 00:00: mouth in [place] the Medical morning. Branch ezetimibe 2023-0 Yes [id number] 10mg Take 1 [facility] [place] 10 mg 4-25 tablet by ity of tablet 00:00: mouth in [place] the Medical morning. Branch ezetimibe 2023-0 Yes [id number] 10mg Take 1 [facility] [place] 10 mg 4-25 tablet by ity of tablet 00:00: mouth in [place] 00 the Medical morning. Branch ezetimibe 2023-0 Yes [id number] 10mg Take 1 [facility] [place] 10 mg 4-25 tablet by ity of tablet 00:00: mouth in [place] the Medical morning. Branch ezetimibe 2023-0 Yes [id number] 10mg Take 1 [facility] [place] 10 mg 4-25 tablet by ity of tablet 00:00: mouth in [place] the Medical morning. Branch ezetimibe 2023-0 Yes [id number] 10mg Take 1 [facility] [place] 10 mg 4-25 tablet by ity of tablet 00:00: mouth in [place] the Medical morning. Branch ezetimibe 2023-0 Yes [id number] 10mg Take 1 [facility] [place] 10 mg 4-25 tablet by ity of tablet 00:00: mouth in [place] the Medical morning. Branch ezetimibe 2023-0 Yes [id number] 10mg Take 1 Un [facility] 10 mg 4-25 tablet by ity of tablet 00:00: mouth in [place] the Medical morning. Branch ezetimibe 2023-0 Yes [id number] 10mg Take 1 [facility] [place] 10 mg 4-25 tablet by ity of tablet 00:00: mouth in [place] the Medical morning. Branch ezetimibe 2023-0 Yes [id number] 10mg Take 1 [facility] [place] 10 mg 4-25 tablet by ity of tablet 00:00: mouth in [place] the Medical morning. Branch ezetimibe 2023-0 Yes [id number] 10mg Take 1 [facility] [place] 10 mg 4-25 tablet by ity of tablet 00:00: mouth in [place] the Medical morning. Branch ezetimibe 2023-0 Yes [id number] 10mg Take 1 [facility] [place] 10 mg 4-25 tablet by ity of tablet 00:00: mouth in [place] the Medical morning. Branch ezetimibe 2023-0 Yes [id number] 10mg Take 1 [facility] [place] 10 mg 4-25 tablet by ity of tablet 00:00: mouth in [place] the Medical morning. Branch ezetimibe 2023-0 Yes [id number] 10mg Take 1 [facility] [place] 10 mg 4-25 tablet by ity of tablet 00:00: mouth in [place] the Medical morning. Branch ezetimibe 2023-0 Yes [id number] 10mg Take 1 [facility] [place] 10 mg 4-25 tablet by ity of tablet 00:00: mouth in [place] 00 the Medical morning. Branch ezetimibe 3-0 Yes [id number] 10mg Take 1 [facility] [place] 10 mg 4-25 tablet by ity of tablet 00:00: mouth in [place] 00 the Medical morning. Branch ezetimibe 3-0 Yes [id number] 10mg Take 1 [facility] [place] 10 mg 4-25 tablet by ity of tablet 00:00: mouth in [place] 00 the Medical morning. Branch levothyroxi 2022-0 Yes 50ug TAKE 1 [facility] ers ne 50 mcg 4-22 TABLET BY ity o f tablet 00:00: MOUTH [place] 00 EVERY Medical MORNING Branch insulin 2022-0 Yes ADMINISTER [facility] aspart 4-22 8 TO 14 ity of U-100 100 00:00: UNITS [place] unit/mL (3 00 UNDER THE Medi keily mL) SKIN THREE Branch injection TIMES DAILY levothyroxi 2022-0 Yes 50ug TAKE 1 [facility] ers ne 50 mcg 4-22 TABLET BY ity o f tablet 00:00: MOUTH [place] 00 EVERY Medical MORNING Branch insulin 2022-0 Yes ADMINISTER [facility] aspart 4-22 8 TO 14 ity of U-100 100 00:00: UNITS [place] unit/mL (3 00 UNDER THE Medi keily mL) SKIN THREE Branch injection TIMES DAILY levothyroxi 2022-0 Yes 50ug TAKE 1 [facility] ers ne 50 mcg 4-22 TABLET BY ity o f tablet 00:00: MOUTH [place] 00 EVERY Medical MORNING Branch insulin 3-0 Yes ADMINISTER [facility] aspart 4-22 8 TO 14 ity of U-100 100 00:00: UNITS [place] unit/mL (3 00 UNDER THE Medi keily mL) SKIN THREE Branch injection TIMES DAILY levothyroxi 2022-0 Yes 50ug TAKE 1 [facility] ers ne 50 mcg 4-22 TABLET BY ity o f tablet 00:00: MOUTH [place] 00 EVERY Medical MORNING Branch insulin 2022-0 Yes ADMINISTER [facility] aspart 4-22 8 TO 14 ity of U-100 100 00:00: UNITS [place] unit/mL (3 00 UNDER THE Medi keily mL) SKIN THREE Branch injection TIMES DAILY levothyroxi 2022-0 Yes 50ug TAKE 1 [facility] ne 50 mcg 4-22 TABLET BY ity o f tablet 00:00: MOUTH [place] 00 EVERY Medical MORNING Branch insulin 0 Yes ADMINISTER [facility] aspart 4-22 8 TO 14 ity of U-100 100 00:00: UNITS [place] unit/mL (3 00 UNDER THE Medi keily mL) SKIN THREE Branch injection TIMES DAILY levothyroxi 0 Yes 50ug TAKE 1 [facility] ne 50 mcg 4-22 TABLET BY ity o f tablet 00:00: MOUTH [place] 00 EVERY Medical MORNING Branch insulin 0 Yes ADMINISTER [facility] aspart 4-22 8 TO 14 ity of U-100 100 00:00: UNITS [place] unit/mL (3 00 UNDER THE Medi keily mL) SKIN THREE Branch injection TIMES DAILY levothyroxi 0 Yes 50ug TAKE 1 [facility] ne 50 mcg 4-22 TABLET BY ity o f tablet 00:00: MOUTH [place] 00 EVERY Medical MORNING Branch insulin 0 Yes ADMINISTER [facility] aspart 4-22 8 TO 14 ity of U-100 100 00:00: UNITS [place] unit/mL (3 00 UNDER THE Medi keily mL) SKIN THREE Branch injection TIMES DAILY levothyroxi 0 Yes 50ug TAKE 1 [facility] ne 50 mcg 4-22 TABLET BY ity o f tablet 00:00: MOUTH [place] 00 EVERY Medical MORNING Branch insulin 0 Yes ADMINISTER [facility] aspart 4-22 8 TO 14 ity of U-100 100 00:00: UNITS [place] unit/mL (3 00 UNDER THE Medi keily mL) SKIN THREE Branch injection TIMES DAILY levothyroxi 0 Yes 50ug TAKE 1 [facility] ne 50 mcg 4-22 TABLET BY ity o f tablet 00:00: MOUTH [place] 00 EVERY Medical MORNING Branch insulin 0 Yes ADMINISTER [facility] aspart 4-22 8 TO 14 ity of U-100 100 00:00: UNITS [place] unit/mL (3 00 UNDER THE Medi keily mL) SKIN THREE Branch injection TIMES DAILY levothyroxi 0 Yes 50ug TAKE 1 [facility] ne 50 mcg 4-22 TABLET BY ity o f tablet 00:00: MOUTH [place] 00 EVERY Medical MORNING Branch insulin 0 Yes ADMINISTER [facility] aspart 4-22 8 TO 14 ity of U-100 100 00:00: UNITS [place] unit/mL (3 00 UNDER THE Medi keily mL) SKIN THREE Branch injection TIMES DAILY levothyroxi 2022-0 Yes 50ug TAKE 1 [facility] ne 50 mcg 4-22 TABLET BY ity o f tablet 00:00: MOUTH [place] 00 EVERY Medical MORNING Branch insulin 0 Yes ADMINISTER [facility] aspart 4-22 8 TO 14 ity of U-100 100 00:00: UNITS [place] unit/mL (3 00 UNDER THE Medi keily mL) SKIN THREE Branch injection TIMES DAILY levothyroxi 0 Yes 50ug TAKE 1 [facility] ne 50 mcg 4-22 TABLET BY ity o f tablet 00:00: MOUTH [place] 00 EVERY Medical MORNING Branch insulin Yes ADMINISTER [facility] aspart 4-22 8 TO 14 ity of U-100 100 00:00: UNITS [place] unit/mL (3 00 UNDER THE Medi keily mL) SKIN THREE Branch injection TIMES DAILY levothyroxi Yes 50ug TAKE 1 [facility] ne 50 mcg 4-22 TABLET BY ity o f tablet 00:00: MOUTH [place] 00 EVERY Medical MORNING Branch insulin Yes ADMINISTER [facility] aspart 4-22 8 TO 14 ity of U-100 100 00:00: UNITS [place] unit/mL (3 00 UNDER THE Medi keily mL) SKIN THREE Branch injection TIMES DAILY levothyroxi Yes 50ug TAKE 1 [facility] ne 50 mcg 4-22 TABLET BY ity o f tablet 00:00: MOUTH [place] 00 EVERY Medical MORNING Branch insulin 0 Yes ADMINISTER [facility] aspart 4-22 8 TO 14 ity of U-100 100 00:00: UNITS [place] unit/mL (3 00 UNDER THE Medi keily mL) SKIN THREE Branch injection TIMES DAILY levothyroxi 0 Yes 50ug TAKE 1 [facility] ne 50 mcg 4-22 TABLET BY ity o f tablet 00:00: MOUTH [place] 00 EVERY Medical MORNING Branch insulin 0 Yes ADMINISTER [facility] aspart 4-22 8 TO 14 ity of U-100 100 00:00: UNITS [place] unit/mL (3 00 UNDER THE Medi keily mL) SKIN THREE Branch injection TIMES DAILY levothyroxi Yes 50ug TAKE 1 [facility] ne 50 mcg 4-22 TABLET BY ity o f tablet 00:00: MOUTH [place] 00 EVERY Medical MORNING Branch insulin 0 Yes ADMINISTER [facility] aspart 4-22 8 TO 14 ity of U-100 100 00:00: UNITS [place] unit/mL (3 00 UNDER THE Medi keily mL) SKIN THREE Branch injection TIMES DAILY levothyroxi Yes 50ug TAKE 1 [facility] ne 50 mcg 4-22 TABLET BY ity o f tablet 00:00: MOUTH [place] 00 EVERY Medical MORNING Branch insulin Yes ADMINISTER [facility] aspart 4-22 8 TO 14 ity of U-100 100 00:00: UNITS [place] unit/mL (3 00 UNDER THE Medi keily mL) SKIN THREE Branch injection TIMES DAILY levothyroxi Yes 50ug TAKE 1 [facility] ne 50 mcg 4-22 TABLET BY ity o f tablet 00:00: MOUTH [place] 00 EVERY Medical MORNING Branch insulin Yes ADMINISTER [facility] aspart 4-22 8 TO 14 ity of U-100 100 00:00: UNITS [place] unit/mL (3 00 UNDER THE Medi keily mL) SKIN THREE Branch injection TIMES DAILY levothyroxi Yes 50ug TAKE 1 [facility] ne 50 mcg 4-22 TABLET BY ity o f tablet 00:00: MOUTH [place] 00 EVERY Medical MORNING Branch insulin Yes ADMINISTER [facility] aspart 4-22 8 TO 14 ity of U-100 100 00:00: UNITS [place] unit/mL (3 00 UNDER THE Medi keily mL) SKIN THREE Branch injection TIMES DAILY levothyroxi Yes 50ug TAKE 1 [facility] ne 50 mcg 4-22 TABLET BY ity o f tablet 00:00: MOUTH [place] 00 EVERY Medical MORNING Branch insulin Yes ADMINISTER [facility] aspart 4-22 8 TO 14 ity of U-100 100 00:00: UNITS [place] unit/mL (3 00 UNDER THE Medi keily mL) SKIN THREE Branch injection TIMES DAILY levothyroxi Yes 50ug TAKE 1 [facility] ne 50 mcg 4-22 TABLET BY ity o f tablet 00:00: MOUTH [place] 00 EVERY Medical MORNING Branch insulin 0 Yes ADMINISTER [facility] aspart 4-22 8 TO 14 ity of U-100 100 00:00: UNITS [place] unit/mL (3 00 UNDER THE Medi keily mL) SKIN THREE Branch injection TIMES DAILY levothyroxi Yes 50ug TAKE 1 [facility] ne 50 mcg 4-22 TABLET BY ity o f tablet 00:00: MOUTH [place] 00 EVERY Medical MORNING Branch insulin Yes ADMINISTER [facility] aspart 4-22 8 TO 14 ity of U-100 100 00:00: UNITS [place] unit/mL (3 00 UNDER THE Medi keily mL) SKIN THREE Branch injection TIMES DAILY levothyroxi 0 Yes 50ug TAKE 1 [facility] ne 50 mcg 4-22 TABLET BY ity o f tablet 00:00: MOUTH [place] 00 EVERY Medical MORNING Branch insulin 0 Yes ADMINISTER [facility] aspart 4-22 8 TO 14 ity of U-100 100 00:00: UNITS [place] unit/mL (3 00 UNDER THE Medi keily mL) SKIN THREE Branch injection TIMES DAILY levothyroxi 0 Yes 50ug TAKE 1 [facility] ne 50 mcg 4-22 TABLET BY ity o f tablet 00:00: MOUTH [place] 00 EVERY Medical MORNING Branch insulin 0 Yes ADMINISTER [facility] aspart 4-22 8 TO 14 ity of U-100 100 00:00: UNITS [place] unit/mL (3 00 UNDER THE Medi keily mL) SKIN THREE Branch injection TIMES DAILY levothyroxi 0 Yes 50ug TAKE 1 [facility] ne 50 mcg 4-22 TABLET BY ity o f tablet 00:00: MOUTH [place] 00 EVERY Medical MORNING Branch insulin 0 Yes ADMINISTER [facility] aspart 4-22 8 TO 14 ity of U-100 100 00:00: UNITS [place] unit/mL (3 00 UNDER THE Medi keily mL) SKIN THREE Branch injection TIMES DAILY levothyroxi 0 Yes 50ug TAKE 1 [facility] ne 50 mcg 4-22 TABLET BY ity o f tablet 00:00: MOUTH [place] 00 EVERY Medical MORNING Branch insulin 0 Yes ADMINISTER [facility] aspart 4-22 8 TO 14 ity of U-100 100 00:00: UNITS [place] unit/mL (3 00 UNDER THE Medi keily mL) SKIN THREE Branch injection TIMES DAILY levothyroxi 0 Yes 50ug TAKE 1 [facility] ne 50 mcg 4-22 TABLET BY ity o f tablet 00:00: MOUTH [place] 00 EVERY Medical MORNING Branch insulin 0 Yes ADMINISTER [facility] aspart 4-22 8 TO 14 ity of U-100 100 00:00: UNITS [place] unit/mL (3 00 UNDER THE Medi keily mL) SKIN THREE Branch injection TIMES DAILY levothyroxi 0 Yes 50ug TAKE 1 [facility] ne 50 mcg 4-22 TABLET BY ity o f tablet 00:00: MOUTH [place] 00 EVERY Medical MORNING Branch insulin 0 Yes ADMINISTER [facility] aspart 4-22 8 TO 14 ity of U-100 100 00:00: UNITS [place] unit/mL (3 00 UNDER THE Medi keily mL) SKIN THREE Branch injection TIMES DAILY levothyroxi 0 Yes 50ug TAKE 1 [facility] ne 50 mcg 4-22 TABLET BY ity o f tablet 00:00: MOUTH [place] 00 EVERY Medical MORNING Branch insulin Yes ADMINISTER [facility] aspart 22 8 TO 14 ity of U-100 100 00:00: UNITS [place] unit/mL (3 00 UNDER THE Medi keily mL) SKIN THREE Branch injection TIMES DAILY levothyroxi Yes 50ug TAKE 1 [facility] ne 50 mcg 4-22 TABLET BY ity o f tablet 00:00: MOUTH [place] 00 EVERY Medical MORNING Branch insulin Yes ADMINISTER [facility] aspart 22 8 TO 14 ity of U-100 100 00:00: UNITS [place] unit/mL (3 00 UNDER THE Medi keily mL) SKIN THREE Branch injection TIMES DAILY levothyroxi Yes 50ug TAKE 1 [facility] ne 50 mcg 4-22 TABLET BY ity o f tablet 00:00: MOUTH [place] 00 EVERY Medical MORNING Branch insulin Yes ADMINISTER [facility] aspart 03-15 8 TO 14 ity of U-100 100 00:00: UNITS [place] unit/mL (3 00 UNDER THE Medi keily mL) SKIN THREE Branch injection TIMES DAILY insulin Yes ADMINISTER [facility] aspart 03-15 8 TO 14 ity of U-100 100 00:00: UNITS [place] unit/mL (3 00 UNDER THE Medi keily mL) SKIN THREE Branch injection TIMES DAILY insulin Yes ADMINISTER [facility] aspart 22 8 TO 14 ity of U-100 100 00:00: UNITS [place] unit/mL (3 00 UNDER THE Medi keily mL) SKIN THREE Branch injection TIMES DAILY insulin 0 2022- No ADMINISTER Uni vers aspart 03-15 8 TO 14 ity of U-100 100 00:00: 00:00 UNITS [place] unit/mL (3 00 :00 UNDER THE Medi keily mL) SKIN THREE Branch injection TIMES DAILY insulin 2022-0 2022- No ADMINISTER Uni vers aspart 03-15 8 TO 14 ity of U-100 100 00:00: 00:00 UNITS [place] unit/mL (3 00 :00 UNDER THE Medi keily mL) SKIN THREE Branch injection TIMES DAILY levothyroxi 2022- No 50ug TAKE 1 Uni vers ne 50 mcg 03-15 TABLET BY ity of tablet 00:00: 00:00 MOUTH [place] 00 :00 EVERY Medical MORNING Branch magnesium Yes 1{tbl} Take 1 [facility] ers 250 mg tab 3-31 tablet by ity of 03:28: mouth. [place] 29 MD [facility] multivit Yes 1{tbl} Chew 1 Un[facility] rs with 3-31 tablet. ity of min-folic 03:28: [place] acid 29 ([facility] 50 n [facility]) 120 mcg Center chew acetaminoph Yes 500mg Take 500 U nivers en 3-31 mg by ity of (TYLENOL) 03:28: mouth. [place] 650 MG CR 29 tablet [facility] insulin 2021- No [facility] aspart 02-21 ity of U-100 03:28: 00:00 [place] (NovoLOG 29 :00 Flexpen [facility] U-100 n Insulin) Cancer 100 unit/mL [place] (3 mL) insulin pen losartan Yes [id number] 100mg Take 1 [facility] 100 mg 3-20 tablet by ity of tablet 00:00: mouth [place] 00 every Medical morning. Branch losartan Yes [id number] 100mg Take 1 [facility] [place] 100 mg 3-20 tablet by ity of tablet 00:00: mouth [place] 00 every Medical morning. Branch losartan 0 Yes [id number] 100mg Take 1 [facility] [place] 100 mg 3-20 tablet by ity of tablet 00:00: mouth [place] 00 every Medical morning. Branch losartan 0 Yes [id number] 100mg Take 1 [facility] [place] 100 mg 3-20 tablet by ity of tablet 00:00: mouth [place] 00 every Medical morning. Branch losartan 0 Yes [id number] 100mg Take 1 [facility] [place] 100 mg 3-20 tablet by ity of tablet 00:00: mouth [place] 00 every Medical morning. Branch losartan 0 Yes [id number] 100mg Take 1 [facility] [place] 100 mg 3-20 tablet by ity of tablet 00:00: mouth [place] 00 every Medical morning. Branch losartan 0 Yes [id number] 100mg Take 1 [facility] [place] 100 mg 3-20 tablet by ity of tablet 00:00: mouth [place] 00 every Medical morning. Branch losartan 3-0 Yes [id number] 100mg Take 1 [facility] [place] 100 mg 3-20 tablet by ity of tablet 00:00: mouth [place] 00 every Medical morning. Branch losartan 3-0 Yes [id number] 100mg Take 1 [facility] [place] 100 mg 3-20 tablet by ity of tablet 00:00: mouth [place] 00 every Medical morning. Branch losartan 3-0 Yes [id number] 100mg Take 1 [facility] [place] 100 mg 3-20 tablet by ity of tablet 00:00: mouth [place] 00 every Medical morning. Branch losartan 3-0 Yes [id number] 100mg Take 1 [facility] [place] 100 mg 3-20 tablet by ity of tablet 00:00: mouth [place] 00 every Medical morning. Branch losartan 3-0 Yes [id number] 100mg Take 1 [facility] [place] 100 mg 3-20 tablet by ity of tablet 00:00: mouth [place] 00 every Medical morning. Branch losartan 3-0 Yes [id number] 100mg Take 1 [facility] [place] 100 mg 3-20 tablet by ity of tablet 00:00: mouth [place] 00 every Medical morning. Branch losartan 3-0 Yes [id number] 100mg Take 1 [facility] [place] 100 mg 3-20 tablet by ity of tablet 00:00: mouth [place] 00 every Medical morning. Branch losartan 3-0 Yes [id number] 100mg Take 1 [facility] [place] 100 mg 3-20 tablet by ity of tablet 00:00: mouth [place] 00 every Medical morning. Branch losartan 3-0 Yes [id number] 100mg Take 1 [facility] [place] 100 mg 3-20 tablet by ity of tablet 00:00: mouth [place] 00 every Medical morning. Branch losartan 3-0 Yes [id number] 100mg Take 1 [facility] [place] 100 mg 3-20 tablet by ity of tablet 00:00: mouth [place] 00 every Medical morning. Branch losartan 2023-0 3- No [id number] 100mg Take 1 U nivers 100 mg 3-20 05-09 tablet by ity of tablet 00:00: 00:00 mouth [place] 00 :00 every Medical morning. Branch losartan 2023-0 3- No [id number] 100mg Take 1 U nivers 100 mg 3-20 05-09 tablet by ity of tablet 00:00: 00:00 mouth [place] 00 :00 every Medical morning. Branch flash 2023-0 Yes APPLY 1 [facility] glucose 3-12 SENSOR ity of sensor 00:00: EVERY 14 [place] (FREESTYLE 00 DAYS Medical PACO 14 Branch DAY SENSOR) Kit flash 2023-0 Yes APPLY 1 [facility] glucose 3-12 SENSOR ity of sensor 00:00: EVERY 14 [place] (FREESTYLE 00 DAYS Medical PACO 14 Branch DAY SENSOR) Kit flash 2023-0 Yes APPLY 1 [facility] glucose 3-12 SENSOR ity of sensor 00:00: EVERY 14 [place] (FREESTYLE 00 DAYS Medical PACO 14 Branch DAY SENSOR) Kit flash 3-0 Yes APPLY 1 [facility] glucose 3-12 SENSOR ity of sensor 00:00: EVERY 14 [place] (FREESTYLE 00 DAYS Medical PACO 14 Branch DAY SENSOR) Kit flash 3-0 Yes APPLY 1 [facility] glucose 3-12 SENSOR ity of sensor 00:00: EVERY 14 [place] (FREESTYLE 00 DAYS Medical PACO 14 Branch DAY SENSOR) Kit flash 2023-0 Yes APPLY 1 [facility] glucose 3-12 SENSOR ity of sensor 00:00: EVERY 14 [place] (FREESTYLE 00 DAYS Medical PACO 14 Branch DAY SENSOR) Kit flash 3-0 Yes APPLY 1 [facility] glucose 3-12 SENSOR ity of sensor 00:00: EVERY 14 [place] (FREESTYLE 00 DAYS Medical PACO 14 Branch DAY SENSOR) Kit flash 2023-0 Yes APPLY 1 [facility] glucose 3-12 SENSOR ity of sensor 00:00: EVERY 14 [place] (FREESTYLE 00 DAYS Medical PACO 14 Branch DAY SENSOR) Kit flash 2023-0 Yes APPLY 1 [facility] glucose 3-12 SENSOR ity of sensor 00:00: EVERY 14 [place] (FREESTYLE 00 DAYS Medical PACO 14 Branch DAY SENSOR) Kit flash 2023-0 Yes APPLY 1 [facility] glucose 3-12 SENSOR ity of sensor 00:00: EVERY 14 [place] (FREESTYLE 00 DAYS Medical PACO 14 Branch DAY SENSOR) Kit flash 2023-0 Yes APPLY 1 [facility] glucose 3-12 SENSOR ity of sensor 00:00: EVERY 14 [place] (FREESTYLE 00 DAYS Medical PACO 14 Branch DAY SENSOR) Kit flash 2023-0 Yes APPLY 1 [facility] glucose 3-12 SENSOR ity of sensor 00:00: EVERY 14 [place] (FREESTYLE 00 DAYS Medical PACO 14 Branch DAY SENSOR) Kit flash 2023-0 Yes APPLY 1 [facility] glucose 3-12 SENSOR ity of sensor 00:00: EVERY 14 [place] (FREESTYLE 00 DAYS Medical PACO 14 Branch DAY SENSOR) Kit flash 2023-0 Yes APPLY 1 [facility] glucose 3-12 SENSOR ity of sensor 00:00: EVERY 14 [place] (FREESTYLE 00 DAYS Medical PACO 14 Branch DAY SENSOR) Kit flash 2023-0 Yes APPLY 1 [facility] glucose 3-12 SENSOR ity of sensor 00:00: EVERY 14 [place] (FREESTYLE 00 DAYS Medical PACO 14 Branch DAY SENSOR) Kit flash 2023-0 Yes APPLY 1 [facility] glucose 3-12 SENSOR ity of sensor 00:00: EVERY 14 [place] (FREESTYLE 00 DAYS Medical PACO 14 Branch DAY SENSOR) Kit flash 2023-0 Yes APPLY 1 [facility] glucose 3-12 SENSOR ity of sensor 00:00: EVERY 14 [place] (FREESTYLE 00 DAYS Medical PACO 14 Branch DAY SENSOR) Kit flash 2023-0 Yes APPLY 1 [facility] glucose 3-12 SENSOR ity of sensor 00:00: EVERY 14 [place] (FREESTYLE 00 DAYS Medical PACO 14 Branch DAY SENSOR) Kit flash 3-0 Yes APPLY 1 [facility] glucose 3-12 SENSOR ity of sensor 00:00: EVERY 14 [place] (FREESTYLE 00 DAYS Medical PACO 14 Branch DAY SENSOR) Kit flash 2023-0 Yes APPLY 1 [facility] glucose 3-12 SENSOR ity of sensor 00:00: EVERY 14 [place] (FREESTYLE 00 DAYS Medical PACO 14 Branch DAY SENSOR) Kit flash 2023-0 Yes APPLY 1 [facility] glucose 3-12 SENSOR ity of sensor 00:00: EVERY 14 [place] (FREESTYLE 00 DAYS Medical PACO 14 Branch DAY SENSOR) Kit flash 2023-0 Yes APPLY 1 [facility] glucose 3-12 SENSOR ity of sensor 00:00: EVERY 14 [place] (FREESTYLE 00 DAYS Medical PACO 14 Branch DAY SENSOR) Kit flash 2023-0 Yes APPLY 1 [facility] glucose 3-12 SENSOR ity of sensor 00:00: EVERY 14 [place] (FREESTYLE 00 DAYS Medical PACO 14 Branch DAY SENSOR) Kit flash 2023-0 Yes APPLY 1 [facility] glucose 3-12 SENSOR ity of sensor 00:00: EVERY 14 [place] (FREESTYLE 00 DAYS Medical PACO 14 Branch DAY SENSOR) Kit flash 2023-0 Yes APPLY 1 [facility] glucose 3-12 SENSOR ity of sensor 00:00: EVERY 14 [place] (FREESTYLE 00 DAYS Medical PACO 14 Branch DAY SENSOR) Kit flash 2023-0 Yes APPLY 1 [facility] glucose 3-12 SENSOR ity of sensor 00:00: EVERY 14 [place] (FREESTYLE 00 DAYS Medical PACO 14 Branch DAY SENSOR) Kit flash 2023-0 Yes APPLY 1 [facility] glucose 3-12 SENSOR ity of sensor 00:00: EVERY 14 [place] (FREESTYLE 00 DAYS Medical PACO 14 Branch DAY SENSOR) Kit flash 2023-0 Yes APPLY 1 [facility] glucose 3-12 SENSOR ity of sensor 00:00: EVERY 14 [place] (FREESTYLE 00 DAYS Medical PACO 14 Branch DAY SENSOR) Kit flash 3-0 Yes APPLY 1 [facility] glucose 3-12 SENSOR ity of sensor 00:00: EVERY 14 [place] (FREESTYLE 00 DAYS Medical PACO 14 Branch DAY SENSOR) Kit flash 3-0 Yes APPLY 1 [facility] glucose 3-12 SENSOR ity of sensor 00:00: EVERY 14 [place] (FREESTYLE 00 DAYS Medical PACO 14 Branch DAY SENSOR) Kit flash 3-0 Yes APPLY 1 [facility] glucose 3-12 SENSOR ity of sensor 00:00: EVERY 14 [place] (FREESTYLE 00 DAYS Medical PACO 14 Branch DAY SENSOR) Kit flash 3-0 Yes APPLY 1 [facility] glucose 3-12 SENSOR ity of sensor 00:00: EVERY 14 [place] (FREESTYLE 00 DAYS Medical PACO 14 Branch DAY SENSOR) Kit flash 2023-0 Yes APPLY 1 [facility] glucose 3-12 SENSOR ity of sensor 00:00: EVERY 14 [place] (FREESTYLE 00 DAYS Medical PACO 14 Branch DAY SENSOR) Kit flash 2023-0 Yes APPLY 1 [facility] glucose 3-12 SENSOR ity of sensor 00:00: EVERY 14 [place] (FREESTYLE 00 DAYS Medical PACO 14 Branch DAY SENSOR) Kit flash 3-0 Yes APPLY 1 [facility] glucose 3-12 SENSOR ity of sensor 00:00: EVERY 14 [place] (FREESTYLE 00 DAYS Medical PACO 14 Branch DAY SENSOR) Kit flash 3-0 Yes APPLY 1 [facility] glucose 3-12 SENSOR ity of sensor 00:00: EVERY 14 [place] (FREESTYLE 00 DAYS Medical PACO 14 Branch DAY SENSOR) Kit flash 2023-0 2023- No APPLY 1 [facility] glucose 3-12 05-28 SENSOR ity of sensor 00:00: 00:00 EVERY 14 [place] (FREESTYLE 00 :00 DAYS Medical PACO 14 Branch DAY SENSOR) Kit flash 2022- No APPLY 1 [facility] glucose 3-12 05-28 SENSOR ity of sensor 00:00: 00:00 EVERY 14 [place] (FREESTYLE 00 :00 DAYS Medical PACO 14 Branch DAY SENSOR) Kit diazePAM 2022- No [id number] 10mg Take 1 [facility] n[facility] (VALIUM) 10 12-1624 tablet by it y of mg tablet 00:00: 05:59 mouth once [place] 00 :00 now for 1 Medical dose. Take Branch 1 tablet 30-60 minutes prior to start of MRI. diazePAM 2022- No [id number] 10mg Take 1 [facility] (VALIUM) 10 12-16 tablet by it y of mg tablet 00:00: 05:59 mouth once [place] 00 :00 now for 1 Medical dose. Take Branch 1 tablet 30-60 minutes prior to start of MRI. JANUVIA 50 Yes TAKE 1 [facility] mg tablet 1-05 TABLET BY ity o f 00:00: MOUTH [place] 00 DAILY Medical Branch JANUVIA 50 2022-0 Yes TAKE 1 [facility] mg tablet 1-05 TABLET BY ity o f 00:00: MOUTH [place] 00 DAILY Medical Branch metoprolol 2022-0 Yes [id number] 25mg Take 1 [facility] nivers succinate 1-05 tablet by ity o f XL 25 mg 24 00:00: mouth in [place] hr tablet 00 the Medical morning Branch and 1 tablet in the evening. JANUVIA 50 0 Yes TAKE 1 [facility] rs mg tablet 1-05 TABLET BY ity o f 00:00: MOUTH [place] 00 DAILY Medical Branch metoprolol 2022-0 Yes [id number] 25mg Take 1 [facility] nivers succinate 1-05 tablet by ity o f XL 25 mg 24 00:00: mouth in [place] hr tablet 00 the Medical morning Branch and 1 tablet in the evening. JANUVIA 50 0 Yes TAKE 1 [facility] rs mg tablet 1-05 TABLET BY ity o f 00:00: MOUTH [place] 00 DAILY Medical Branch metoprolol 2022-0 Yes [id number] 25mg Take 1 [facility] nivers succinate 1-05 tablet by ity o f XL 25 mg 24 00:00: mouth in [place] hr tablet 00 the Medical morning Branch and 1 tablet in the evening. JANUVIA 50 0 Yes TAKE 1 [facility] rs mg tablet 1-05 TABLET BY ity o f 00:00: MOUTH [place] 00 DAILY Medical Branch metoprolol 2022-0 Yes [id number] 25mg Take 1 [facility] nivers succinate 1-05 tablet by ity o f XL 25 mg 24 00:00: mouth in [place] hr tablet 00 the Medical morning Branch and 1 tablet in the evening. JANUVIA 50 0 Yes TAKE 1 [facility] rs mg tablet 1-05 TABLET BY ity o f 00:00: MOUTH [place] 00 DAILY Medical Branch metoprolol 2022-0 Yes [id number] 25mg Take 1 [facility] nivers succinate 1-05 tablet by ity o f XL 25 mg 24 00:00: mouth in [place] hr tablet 00 the Medical morning Branch and 1 tablet in the evening. BELKYSUVIA 50 Yes TAKE 1 [facility] rs mg tablet 1-05 TABLET BY ity o f 00:00: MOUTH [place] 00 DAILY Medical Branch metoprolol 2022-0 Yes [id number] 25mg Take 1 [facility] nivers succinate 1-05 tablet by ity o f XL 25 mg 24 00:00: mouth in [place] hr tablet 00 the Medical morning Branch and 1 tablet in the evening. BELKYSUVIA 50 0 Yes TAKE 1 [facility] rs mg tablet 1-05 TABLET BY ity o f 00:00: MOUTH [place] 00 DAILY Medical Branch metoprolol 2022-0 Yes [id number] 25mg Take 1 [facility] nivers succinate 1-05 tablet by ity o f XL 25 mg 24 00:00: mouth in [place] hr tablet 00 the Medical morning Branch and 1 tablet in the evening. JANUVIA 50 Yes TAKE 1 [facility] rs mg tablet 1-05 TABLET BY ity o f 00:00: MOUTH [place] 00 DAILY Medical Branch metoprolol 2022-0 Yes [id number] 25mg Take 1 [facility] nivers succinate 1-05 tablet by ity o f XL 25 mg 24 00:00: mouth in [place] hr tablet 00 the Medical morning Branch and 1 tablet in the evening. JANUVIA 50 2022-0 Yes TAKE 1 [facility] rs mg tablet 1-05 TABLET BY ity o f 00:00: MOUTH [place] 00 DAILY Medical Branch metoprolol 2022-0 Yes [id number] 25mg Take 1 [facility] nivers succinate 1-05 tablet by ity o f XL 25 mg 24 00:00: mouth in [place] hr tablet 00 the Medical morning Branch and 1 tablet in the evening. JANUVIA 50 2022-0 Yes TAKE 1 [facility] rs mg tablet 1-05 TABLET BY ity o f 00:00: MOUTH [place] 00 DAILY Medical Branch metoprolol 2022-0 Yes [id number] 25mg Take 1 [facility] nivers succinate 1-05 tablet by ity o f XL 25 mg 24 00:00: mouth in [place] hr tablet 00 the Medical morning Branch and 1 tablet in the evening. JANUVIA 50 2022-0 Yes TAKE 1 [facility] rs mg tablet 1-05 TABLET BY ity o f 00:00: MOUTH [place] 00 DAILY Medical Branch metoprolol 2022-0 Yes [id number] 25mg Take 1 [facility] nivers succinate 1-05 tablet by ity o f XL 25 mg 24 00:00: mouth in [place] hr tablet 00 the Medical morning Branch and 1 tablet in the evening. JANUVIA 50 2022-0 Yes TAKE 1 [facility] rs mg tablet 1-05 TABLET BY ity o f 00:00: MOUTH [place] 00 DAILY Medical Branch metoprolol 2022-0 Yes [id number] 25mg Take 1 [facility] nivers succinate 1-05 tablet by ity o f XL 25 mg 24 00:00: mouth in [place] hr tablet 00 the Medical morning Branch and 1 tablet in the evening. JANUVIA 50 2022-0 Yes TAKE 1 [facility] rs mg tablet 1-05 TABLET BY ity o f 00:00: MOUTH [place] 00 DAILY Medical Branch metoprolol 2022-0 Yes [id number] 25mg Take 1 [facility] nivers succinate 1-05 tablet by ity o f XL 25 mg 24 00:00: mouth in [place] hr tablet 00 the Medical morning Branch and 1 tablet in the evening. JANUVIA 50 2022-0 Yes TAKE 1 [facility] rs mg tablet 1-05 TABLET BY ity o f 00:00: MOUTH [place] 00 DAILY Medical Branch metoprolol 2022-0 Yes [id number] 25mg Take 1 [facility] nivers succinate 1-05 tablet by ity o f XL 25 mg 24 00:00: mouth in [place] hr tablet 00 the Medical morning Branch and 1 tablet in the evening. JANUVIA 50 Yes TAKE 1 [facility] rs mg tablet 1-05 TABLET BY ity o f 00:00: MOUTH [place] 00 DAILY Medical Branch metoprolol 2022-0 Yes [id number] 25mg Take 1 [facility] nivers succinate 1-05 tablet by ity o f XL 25 mg 24 00:00: mouth in [place] hr tablet 00 the Medical morning Branch and 1 tablet in the evening. BELKYSUVIA 50 Yes TAKE 1 [facility] rs mg tablet 1-05 TABLET BY ity o f 00:00: MOUTH [place] 00 DAILY Medical Branch metoprolol 2022-0 Yes [id number] 25mg Take 1 [facility] nivers succinate 1-05 tablet by ity o f XL 25 mg 24 00:00: mouth in [place] hr tablet 00 the Medical morning Branch and 1 tablet in the evening. BELKYSUVIA 50 Yes TAKE 1 [facility] rs mg tablet 1-05 TABLET BY ity o f 00:00: MOUTH [place] 00 DAILY Medical Branch metoprolol 2022-0 Yes [id number] 25mg Take 1 [facility] nivers succinate 1-05 tablet by ity o f XL 25 mg 24 00:00: mouth in [place] hr tablet 00 the Medical morning Branch and 1 tablet in the evening. BELKYSUVIA 50 Yes TAKE 1 [facility] rs mg tablet 1-05 TABLET BY ity o f 00:00: MOUTH [place] 00 DAILY Medical Branch metoprolol 2022-0 Yes [id number] 25mg Take 1 [facility] nivers succinate 1-05 tablet by ity o f XL 25 mg 24 00:00: mouth in [place] hr tablet 00 the Medical morning Branch and 1 tablet in the evening. BELKYSUVIA 50 Yes TAKE 1 [facility] rs mg tablet 1-05 TABLET BY ity o f 00:00: MOUTH [place] 00 DAILY Medical Branch metoprolol 2022-0 Yes [id number] 25mg Take 1 [facility] nivers succinate 1-05 tablet by ity o f XL 25 mg 24 00:00: mouth in [place] hr tablet 00 the Medical morning Branch and 1 tablet in the evening. JANUVIA 50 Yes TAKE 1 [facility] rs mg tablet 1-05 TABLET BY ity o f 00:00: MOUTH [place] 00 DAILY Medical Branch metoprolol 2022-0 Yes [id number] 25mg Take 1 [facility] nivers succinate 1-05 tablet by ity o f XL 25 mg 24 00:00: mouth in [place] hr tablet 00 the Medical morning Branch and 1 tablet in the evening. JANUVIA 50 Yes TAKE 1 [facility] rs mg tablet 1-05 TABLET BY ity o f 00:00: MOUTH [place] 00 DAILY Medical Branch metoprolol 2022-0 Yes [id number] 25mg Take 1 [facility] nivers succinate 1-05 tablet by ity o f XL 25 mg 24 00:00: mouth in [place] hr tablet 00 the Medical morning Branch and 1 tablet in the evening. BELKYSUVIA 50 Yes TAKE 1 [facility] rs mg tablet 1-05 TABLET BY ity o f 00:00: MOUTH [place] 00 DAILY Medical Branch metoprolol 2022-0 Yes [id number] 25mg Take 1 [facility] nivers succinate 1-05 tablet by ity o f XL 25 mg 24 00:00: mouth in [place] hr tablet 00 the Medical morning Branch and 1 tablet in the evening. BELKYSUVIA 50 Yes TAKE 1 [facility] rs mg tablet 1-05 TABLET BY ity o f 00:00: MOUTH [place] 00 DAILY Medical Branch metoprolol 2022-0 Yes [id number] 25mg Take 1 [facility] nivers succinate 1-05 tablet by ity o f XL 25 mg 24 00:00: mouth in [place] hr tablet 00 the Medical morning Branch and 1 tablet in the evening. BELKYSUVIA 50 Yes TAKE 1 [facility] rs mg tablet 1-05 TABLET BY ity o f 00:00: MOUTH [place] 00 DAILY Medical Branch metoprolol 2022-0 Yes [id number] 25mg Take 1 [facility] nivers succinate 1-05 tablet by ity o f XL 25 mg 24 00:00: mouth in [place] hr tablet 00 the Medical morning Branch and 1 tablet in the evening. BELKYSUVIA 50 Yes TAKE 1 [facility] rs mg tablet 1-05 TABLET BY ity o f 00:00: MOUTH [place] 00 DAILY Medical Branch metoprolol 2022-0 Yes [id number] 25mg Take 1 [facility] nivers succinate 1-05 tablet by ity o f XL 25 mg 24 00:00: mouth in [place] hr tablet 00 the Medical morning Branch and 1 tablet in the evening. JANUVIA 50 2023-0 Yes TAKE 1 [facility] rs mg tablet 1-05 TABLET BY ity o f 00:00: MOUTH [place] 00 DAILY Medical Branch metoprolol 2022-0 Yes [id number] 25mg Take 1 [facility] nivers succinate 1-05 tablet by ity o f XL 25 mg 24 00:00: mouth in [place] hr tablet 00 the Medical morning Branch and 1 tablet in the evening. JANUVIA 50 Yes TAKE 1 [facility] rs mg tablet 1-05 TABLET BY ity o f 00:00: MOUTH [place] 00 DAILY Medical Branch metoprolol 2022-0 Yes [id number] 25mg Take 1 [facility] nivers succinate 1-05 tablet by ity o f XL 25 mg 24 00:00: mouth in [place] hr tablet 00 the Medical morning Branch and 1 tablet in the evening. BELKYSUVIA 50 Yes TAKE 1 [facility] rs mg tablet 1-05 TABLET BY ity o f 00:00: MOUTH [place] 00 DAILY Medical Branch metoprolol 2022-0 Yes [id number] 25mg Take 1 [facility] nivers succinate 1-05 tablet by ity o f XL 25 mg 24 00:00: mouth in [place] hr tablet 00 the Medical morning Branch and 1 tablet in the evening. JANUVIA 50 2022-0 Yes TAKE 1 [facility] rs mg tablet 1-05 TABLET BY ity o f 00:00: MOUTH [place] 00 DAILY Medical Branch metoprolol 2022-0 Yes [id number] 25mg Take 1 [facility] nivers succinate 1-05 tablet by ity o f XL 25 mg 24 00:00: mouth in [place] hr tablet 00 the Medical morning Branch and 1 tablet in the evening. JANUVIA 50 2022-0 Yes TAKE 1 [facility] rs mg tablet 1-05 TABLET BY ity o f 00:00: MOUTH [place] 00 DAILY Medical Branch metoprolol 2022-0 Yes [id number] 25mg Take 1 [facility] nivers succinate 1-05 tablet by ity o f XL 25 mg 24 00:00: mouth in [place] hr tablet 00 the Medical morning Branch and 1 tablet in the evening. JANUVIA 50 2022-0 Yes TAKE 1 [facility] rs mg tablet 1-05 TABLET BY ity o f 00:00: MOUTH [place] 00 DAILY Medical Branch metoprolol 2022-0 Yes [id number] 25mg Take 1 [facility] nivers succinate 1-05 tablet by ity o f XL 25 mg 24 00:00: mouth in [place] hr tablet 00 the Medical morning Branch and 1 tablet in the evening. JANUVIA 50 2022-0 Yes TAKE 1 [facility] rs mg tablet 1-05 TABLET BY ity o f 00:00: MOUTH [place] 00 DAILY Medical Branch metoprolol 2022-0 Yes [id number] 25mg Take 1 [facility] nivers succinate 1-05 tablet by ity o f XL 25 mg 24 00:00: mouth in [place] hr tablet 00 the Medical morning Branch and 1 tablet in the evening. JANUVIA 50 Yes TAKE 1 [facility] rs mg tablet 1-05 TABLET BY ity o f 00:00: MOUTH [place] 00 DAILY Medical Branch metoprolol 2022-0 Yes [id number] 25mg Take 1 [facility] nivers succinate 1-05 tablet by ity o f XL 25 mg 24 00:00: mouth in [place] hr tablet 00 the Medical morning Branch and 1 tablet in the evening. JANUVIA 50 Yes TAKE 1 [facility] rs mg tablet 1-05 TABLET BY ity o f 00:00: MOUTH [place] 00 DAILY Medical Branch metoprolol 2022-0 Yes [id number] 25mg Take 1 [facility] nivers succinate 1-05 tablet by ity o f XL 25 mg 24 00:00: mouth in [place] hr tablet 00 the Medical morning Branch and 1 tablet in the evening. JANUVIA 50 0 Yes TAKE 1 [facility] rs mg tablet 1-05 TABLET BY ity o f 00:00: MOUTH [place] 00 DAILY Medical Branch metoprolol 2022-0 Yes [id number] 25mg Take 1 [facility] nivers succinate 1-05 tablet by ity o f XL 25 mg 24 00:00: mouth in [place] hr tablet 00 the Medical morning Branch and 1 tablet in the evening. JANUVIA 50 Yes TAKE 1 [facility] rs mg tablet 1-05 TABLET BY ity o f 00:00: MOUTH [place] 00 DAILY Medical Branch metoprolol 2022-0 Yes [id number] 25mg Take 1 [facility] nivers succinate 1-05 tablet by ity o f XL 25 mg 24 00:00: mouth in [place] hr tablet 00 the Medical morning Branch and 1 tablet in the evening. JANUVIA 50 Yes TAKE 1 [facility] rs mg tablet 1-05 TABLET BY ity o f 00:00: MOUTH [place] 00 DAILY Medical Branch metoprolol 2022-0 Yes [id number] 25mg Take 1 [facility] nivers succinate 1-05 tablet by ity o f XL 25 mg 24 00:00: mouth in [place] hr tablet 00 the Medical morning Branch and 1 tablet in the evening. JANUVIA 50 2022-0 Yes TAKE 1 [facility] rs mg tablet 1-05 TABLET BY ity o f 00:00: MOUTH [place] 00 DAILY Medical Branch metoprolol 2022-0 Yes [id number] 25mg Take 1 [facility] nivers succinate 1-05 tablet by ity o f XL 25 mg 24 00:00: mouth in [place] hr tablet 00 the Medical morning Branch and 1 tablet in the evening. JANUVIA 50 2022-0 Yes TAKE 1 [facility] rs mg tablet 1-05 TABLET BY ity o f 00:00: MOUTH [place] 00 DAILY Medical Branch metoprolol 2022-0 Yes [id number] 25mg Take 1 [facility] nivers succinate 1-05 tablet by ity o f XL 25 mg 24 00:00: mouth in [place] hr tablet 00 the Medical morning Branch and 1 tablet in the evening. JANUVIA 50 2022-0 Yes TAKE 1 [facility] rs mg tablet 1-05 TABLET BY ity o f 00:00: MOUTH [place] 00 DAILY Medical Branch metoprolol 2022-0 Yes [id number] 25mg Take 1 [facility] nivers succinate 1-05 tablet by ity o f XL 25 mg 24 00:00: mouth in [place] hr tablet 00 the Medical morning Branch and 1 tablet in the evening. JANUVIA 50 2022-0 Yes TAKE 1 [facility] rs mg tablet 1-05 TABLET BY ity o f 00:00: MOUTH [place] 00 DAILY Medical Branch metoprolol 2022-0 Yes [id number] 25mg Take 1 [facility] nivers succinate 1-05 tablet by ity o f XL 25 mg 24 00:00: mouth in [place] hr tablet 00 the Medical morning Branch and 1 tablet in the evening. JANUVIA 50 2022-0 Yes TAKE 1 [facility] rs mg tablet 1-05 TABLET BY ity o f 00:00: MOUTH [place] 00 DAILY Medical Branch metoprolol 2022-0 Yes [id number] 25mg Take 1 [facility] nivers succinate 1-05 tablet by ity o f XL 25 mg 24 00:00: mouth in [place] hr tablet 00 the Medical morning Branch and 1 tablet in the evening. JANUVIA 50 0 Yes TAKE 1 [facility] rs mg tablet 1-05 TABLET BY ity o f 00:00: MOUTH [place] 00 DAILY Medical Branch metoprolol 2022-0 Yes [id number] 25mg Take 1 [facility] nivers succinate 1-05 tablet by ity o f XL 25 mg 24 00:00: mouth in [place] hr tablet 00 the Medical morning Branch and 1 tablet in the evening. JANUVIA 50 0 Yes TAKE 1 [facility] rs mg tablet 1-05 TABLET BY ity o f 00:00: MOUTH [place] 00 DAILY Medical Branch metoprolol 2022-0 Yes [id number] 25mg Take 1 [facility] nivers succinate 1-05 tablet by ity o f XL 25 mg 24 00:00: mouth in [place] hr tablet 00 the Medical morning Branch and 1 tablet in the evening. JANUVIA 50 Yes TAKE 1 [facility] rs mg tablet 1-05 TABLET BY ity o f 00:00: MOUTH [place] 00 DAILY Medical Branch metoprolol 2022-0 Yes [id number] 25mg Take 1 [facility] nivers succinate 1-05 tablet by ity o f XL 25 mg 24 00:00: mouth in [place] hr tablet 00 the Medical morning Branch and 1 tablet in the evening. JANUVIA 50 0 Yes TAKE 1 [facility] rs mg tablet 1-05 TABLET BY ity o f 00:00: MOUTH [place] 00 DAILY Medical Branch metoprolol 2022-0 Yes [id number] 25mg Take 1 [facility] nivers succinate 1-05 tablet by ity o f XL 25 mg 24 00:00: mouth in [place] hr tablet 00 the Medical morning Branch and 1 tablet in the evening. JANUVIA 50 0 Yes TAKE 1 [facility] rs mg tablet 1-05 TABLET BY ity o f 00:00: MOUTH [place] 00 DAILY Medical Branch metoprolol 2022-0 Yes [id number] 25mg Take 1 [facility] nivers succinate 1-05 tablet by ity o f XL 25 mg 24 00:00: mouth in [place] hr tablet 00 the Medical morning Branch and 1 tablet in the evening. JANUVIA 50 0 Yes TAKE 1 [facility] rs mg tablet 1-05 TABLET BY ity o f 00:00: MOUTH [place] 00 DAILY Medical Branch metoprolol 2022-0 Yes [id number] 25mg Take 1 [facility] nivers succinate 1-05 tablet by ity o f XL 25 mg 24 00:00: mouth in [place] hr tablet 00 the Medical morning Branch and 1 tablet in the evening. JANUVIA 50 2022-0 Yes TAKE 1 [facility] rs mg tablet 1-05 TABLET BY ity o f 00:00: MOUTH [place] 00 DAILY Medical Branch metoprolol 2022-0 Yes [id number] 25mg Take 1 [facility] nivers succinate 1-05 tablet by ity o f XL 25 mg 24 00:00: mouth in [place] hr tablet 00 the Medical morning Branch and 1 tablet in the evening. JANUVIA 50 0 Yes TAKE 1 [facility] rs mg tablet 1-05 TABLET BY ity o f 00:00: MOUTH [place] DAILY Medical Branch metoprolol 2022-0 Yes [id number] 25mg Take 1 [facility] nivers succinate 1-05 tablet by ity o f XL 25 mg 24 00:00: mouth in [place] hr tablet 00 the Medical morning Branch and 1 tablet in the evening. JANUVIA 50 2022-0 Yes TAKE 1 [facility] rs mg tablet 1-05 TABLET BY ity o f 00:00: MOUTH [place] 00 DAILY Medical Branch metoprolol 2022-0 Yes [id number] 25mg Take 1 [facility] nivers succinate 1-05 tablet by ity o f XL 25 mg 24 00:00: mouth in [place] hr tablet 00 the Medical morning Branch and 1 tablet in the evening. JANUVIA 50 0 Yes TAKE 1 [facility] rs mg tablet 1-05 TABLET BY ity o f 00:00: MOUTH [place] 00 DAILY Medical Branch metoprolol 2022-0 Yes [id number] 25mg Take 1 [facility] nivers succinate 1-05 tablet by it[facility] o f XL 25 mg 24 00:00: mouth in [place] hr tablet 00 the Medical morning Branch and 1 tablet in the evening. JANUVIA 50 2022-0 Yes TAKE 1 [facility] rs mg tablet 1-05 TABLET BY ity o f 00:00: MOUTH [place] 00 DAILY Medical Branch metoprolol 2022-0 Yes [id number] 25mg Take 1 [facility] nivers succinate 1-05 tablet by ity o f XL 25 mg 24 00:00: mouth in [place] hr tablet 00 the Medical morning Branch and 1 tablet in the evening. JANUVIA 50 0 Yes TAKE 1 [facility] rs mg tablet 1-05 TABLET BY ity o f 00:00: MOUTH [place] 00 DAILY Medical Branch metoprolol 2022-0 Yes [id number] 25mg Take 1 [facility] nivers succinate 1-05 tablet by ity o f XL 25 mg 24 00:00: mouth in [place] hr tablet 00 the Medical morning Branch and 1 tablet in the evening. JANUVIA 50 0 Yes TAKE 1 [facility] rs mg tablet 1-05 TABLET BY ity o f 00:00: MOUTH [place] 00 DAILY Medical Branch metoprolol 2022-0 Yes [id number] 25mg Take 1 [facility] nivers succinate 1-05 tablet by ity o f XL 25 mg 24 00:00: mouth in [place] hr tablet 00 the Medical morning Branch and 1 tablet in the evening. BELKYSUVIA 50 Yes TAKE 1 [facility] rs mg tablet 1-05 TABLET BY ity o f 00:00: MOUTH [place] 00 DAILY Medical Branch metoprolol 2022-0 Yes [id number] 25mg Take 1 U nivers succinate 1-05 tablet by ity o f XL 25 mg 24 00:00: mouth in [place] hr tablet 00 the Medical morning Branch and 1 tablet in the evening. BELKYSUVIA 50 0 Yes TAKE 1 [facility] rs mg tablet 1-05 TABLET BY ity o f 00:00: MOUTH [place] 00 DAILY Medical Branch metoprolol 2022-0 Yes [id number] 25mg Take 1 [facility] nivers succinate 1-05 tablet by it[facility] o f XL 25 mg 24 00:00: mouth in [place] hr tablet 00 the Medical morning Branch and 1 tablet in the evening. JANUVIA 50 Yes TAKE 1 [facility] rs mg tablet 1-05 TABLET BY ity o f 00:00: MOUTH [place] 00 DAILY Medical Branch metoprolol 2022-0 Yes [id number] 25mg Take 1 [facility] nivers succinate 1-05 tablet by it[facility] o f XL 25 mg 24 00:00: mouth in [place] hr tablet 00 the Medical morning Branch and 1 tablet in the evening. JANUVIA 50 2022-0 Yes TAKE 1 [facility] rs mg tablet 1-05 TABLET BY ity o f 00:00: MOUTH [place] 00 DAILY Medical Branch metoprolol 2022-0 Yes [id number] 25mg Take 1 [facility] nivers succinate 1-05 tablet by [facility] o f XL 25 mg 24 00:00: mouth in [place] hr tablet 00 the Medical morning Branch and 1 tablet in the evening. JANUVIA 50 2022-0 Yes TAKE 1 [facility] rs mg tablet 1-05 TABLET BY ity o f 00:00: MOUTH [place] 00 DAILY Medical Branch metoprolol 2022-0 Yes [id number] 25mg Take 1 [facility] succinate 1-05 tablet by [facility] f XL 25 mg 24 00:00: mouth in [place] hr tablet 00 the Medical morning Branch and 1 tablet in the evening. JANUVIA 50 2022-0 Yes TAKE 1 [facility] mg tablet 1-05 TABLET BY [facility] o f 00:00: MOUTH [place] 00 DAILY Medical Branch metoprolol 2022-0 Yes [id number] 25mg Take 1 [facility] succinate 1-05 tablet by [facility] f XL 25 mg 24 00:00: mouth in [place] hr tablet 00 the Medical morning Branch and 1 tablet in the evening. JANUVIA 50 2022-0 Yes TAKE 1 [facility] mg tablet 1-05 TABLET BY [facility] o f 00:00: MOUTH [place] 00 DAILY Medical Branch metoprolol 2022-0 Yes [id number] 25mg Take 1 [facility] succinate 1-05 tablet by [facility] o f XL 25 mg 24 00:00: mouth in [place] hr tablet 00 the Medical morning Branch and 1 tablet in the evening. JANUVIA 50 2022-0 Yes TAKE 1 [facility] mg tablet 1-05 TABLET BY [facility] o f 00:00: MOUTH [place] 00 DAILY Medical Branch metoprolol 2022-0 Yes [id number] 25mg Take 1 [facility] succinate 1-05 tablet by [facility] f XL 25 mg 24 00:00: mouth in [place] hr tablet 00 the Medical morning Branch and 1 tablet in the evening. JANUVIA 50 2022-0 Yes TAKE 1 [facility] mg tablet 1-05 TABLET BY [facility] o f 00:00: MOUTH [place] 00 DAILY Medical Branch metoprolol 2022-0 Yes [id number] 25mg Take 1 [facility] succinate 1-05 tablet by [facility] o f XL 25 mg 24 00:00: mouth in [place] hr tablet 00 the Medical morning Branch and 1 tablet in the evening. JANUVIA 50 Yes TAKE 1 [facility] mg tablet 1-05 TABLET BY [facility] o f 00:00: MOUTH [place] 00 DAILY Medical Branch metoprolol 2022-0 Yes [id number] 25mg Take 1 [facility] succinate 1-05 tablet by [facility] o f XL 25 mg 24 00:00: mouth in [place] hr tablet 00 the Medical morning Branch and 1 tablet in the evening. BELKYSUVIA 50 Yes TAKE 1 [facility] mg tablet 1-05 TABLET BY [facility] o f 00:00: MOUTH [place] 00 DAILY Medical Branch metoprolol 2022-0 Yes [id number] 25mg Take 1 [facility] succinate 1-05 tablet by [facility] f XL 25 mg 24 00:00: mouth in [place] hr tablet 00 the Medical morning Branch and 1 tablet in the evening. BELKYSUVIA 50 Yes TAKE 1 [facility] mg tablet 1-05 TABLET BY [facility] o f 00:00: MOUTH [place] 00 DAILY Medical Branch metoprolol 2022-0 Yes [id number] 25mg Take 1 [facility] succinate 1-05 tablet by [facility] f XL 25 mg 24 00:00: mouth in [place] hr tablet 00 the Medical morning Branch and 1 tablet in the evening. BELKYSUVIA 50 Yes TAKE 1 [facility] mg tablet 1-05 TABLET BY [facility] o f 00:00: MOUTH [place] 00 DAILY Medical Branch metoprolol 2022-0 Yes [id number] 25mg Take 1 [facility] succinate 1-05 tablet by [facility] f XL 25 mg 24 00:00: mouth in [place] hr tablet 00 the Medical morning Branch and 1 tablet in the evening. BELKYSUVIA 50 Yes TAKE 1 [facility] mg tablet 1-05 TABLET BY [facility] o f 00:00: MOUTH [place] 00 DAILY Medical Branch metoprolol 2022-0 Yes [id number] 25mg Take 1 [facility] succinate 1-05 tablet by [facility] f XL 25 mg 24 00:00: mouth in [place] hr tablet 00 the Medical morning Branch and 1 tablet in the evening. JANUVIA 50 Yes TAKE 1 [facility] mg tablet 1-05 TABLET BY [facility] o f 00:00: MOUTH [place] 00 DAILY Medical Branch metoprolol 2022-0 Yes [id number] 25mg Take 1 [facility] succinate 1-05 tablet by [facility] f XL 25 mg 24 00:00: mouth in [place] hr tablet 00 the Medical morning Branch and 1 tablet in the evening. JANUVIA 50 Yes TAKE 1 [facility] mg tablet 1-05 TABLET BY [facility] o f 00:00: MOUTH [place] 00 DAILY Medical Branch metoprolol 2022-0 Yes [id number] 25mg Take 1 [facility] succinate 1-05 tablet by [facility] f XL 25 mg 24 00:00: mouth in [place] hr tablet 00 the Medical morning Branch and 1 tablet in the evening. BELKYSUVIA 50 Yes TAKE 1 [facility] mg tablet 1-05 TABLET BY [facility] o f 00:00: MOUTH [place] 00 DAILY Medical Branch metoprolol 2022-0 Yes [id number] 25mg Take 1 [facility] succinate 1-05 tablet by [facility] f XL 25 mg 24 00:00: mouth in [place] hr tablet 00 the Medical morning Branch and 1 tablet in the evening. BELKYSUVIA 50 Yes TAKE 1 [facility] mg tablet 1-05 TABLET BY [facility] o f 00:00: MOUTH [place] 00 DAILY Medical Branch metoprolol 2022-0 Yes [id number] 25mg Take 1 [facility] succinate 1-05 tablet by [facility] f XL 25 mg 24 00:00: mouth in [place] hr tablet 00 the Medical morning Branch and 1 tablet in the evening. BELKYSUVIA 50 Yes TAKE 1 [facility] mg tablet 1-05 TABLET BY [facility] f 00:00: MOUTH [place] 00 DAILY Medical Branch metoprolol 2022-0 Yes [id number] 25mg Take 1 [facility] succinate 1-05 tablet by [facility] f XL 25 mg 24 00:00: mouth in [place] hr tablet 00 the Medical morning Branch and 1 tablet in the evening. BELKYSUVIA 50 Yes TAKE 1 [facility] mg tablet 1-05 TABLET BY [facility] o f 00:00: MOUTH [place] 00 DAILY Medical Branch metoprolol 2022-0 Yes [id number] 25mg Take 1 [facility] succinate 1-05 tablet by [facility] f XL 25 mg 24 00:00: mouth [place] hr tablet 00 the Medical morning Branch and 1 tablet in the evening. JANUVIA 50 2023-0 Yes TAKE 1 [facility] mg tablet 1-05 TABLET BY [facility] f 00:00: MOUTH [place] 00 DAILY Medical Branch metoprolol 3-0 Yes [id number] 25mg Take 1 [facility] succinate 1-05 tablet by [facility] f XL 25 mg 24 00:00: mouth [place] hr tablet 00 the Medical morning Branch and 1 tablet in the evening. JANUVIA 50 3-0 Yes TAKE 1 [facility] mg tablet 1-05 TABLET BY [facility] f 00:00: MOUTH [place] 00 DAILY Medical Branch JANUVIA 50 3-0 2023- No TAKE 1 [facility] mg tablet -03 29-09 TABLET BY [facility] of 00:00: 00:00 MOUTH [place] 00 :00 DAILY Medical Branch JANUVIA 50 2022-0 3- No TAKE 1 [facility] mg tablet -03 29-09 TABLET BY [facility] of 00:00: 00:00 MOUTH [place] 00 :00 DAILY Medical Branch metoprolol 3-0 3- No [id number] 25mg Take 1 [facility] succinate -03 29-06 tablet by [facility] of XL 25 mg 24 00:00: 00:00 mouth in [place] hr tablet 00 :00 the Medical morning Branch and 1 tablet in the evening. amLODIPine 3-0 Yes [id number] 5mg Take 1 [facility] 5 mg tablet 1-04 tablet by [facility] 00:00: mouth [place] 00 every Medical morning. Branch amLODIPine 3-0 Yes [id number] 5mg Take 1 [facility] 5 mg tablet 1-04 tablet by [facility] 00:00: mouth [place] 00 every Medical morning. Branch amLODIPine 3-0 Yes [id number] 5mg Take 1 [facility] 5 mg tablet 1-04 tablet by [facility] 00:00: mouth [place] 00 every Medical morning. Branch amLODIPine 3-0 Yes [id number] 5mg Take 1 [facility] 5 mg tablet 1-04 tablet by [facility] of 00:00: mouth [place] 00 every Medical morning. Branch amLODIPine 3-0 Yes [id number] 5mg Take 1 [facility] 5 mg tablet 1-04 tablet by [facility] 00:00: mouth [place] 00 every Medical morning. Branch amLODIPine 2023-0 Yes [id number] 5mg Take 1 [facility] 5 mg tablet 1-04 tablet by [facility] 00:00: mouth [place] 00 every Medical morning. Branch amLODIPine 2023-0 Yes [id number] 5mg Take 1 [facility] 5 mg tablet 1-04 tablet by [facility] of 00:00: mouth [place] 00 every Medical morning. Branch amLODIPine 2023-0 Yes [id number] 5mg Take 1 [facility] 5 mg tablet 1-04 tablet by [facility] of 00:00: mouth [place] 00 every Medical morning. Branch amLODIPine 2023-0 Yes [id number] 5mg Take 1 [facility] 5 mg tablet 1-04 tablet by [facility] of 00:00: mouth [place] 00 every Medical morning. Branch amLODIPine 2023-0 Yes [id number] 5mg Take 1 [facility] 5 mg tablet 1-04 tablet by [facility] of 00:00: mouth [place] 00 every Medical morning. Branch amLODIPine 2023-0 Yes [id number] 5mg Take 1 [facility] 5 mg tablet 1-04 tablet by [facility] of 00:00: mouth [place] 00 every Medical morning. Branch amLODIPine 2023-0 Yes [id number] 5mg Take 1 [facility] 5 mg tablet 1-04 tablet by [facility] of 00:00: mouth [place] 00 every Medical morning. Branch amLODIPine 2023-0 Yes [id number] 5mg Take 1 [facility] 5 mg tablet 1-04 tablet by [facility] of 00:00: mouth [place] 00 every Medical morning. Branch amLODIPine 2023-0 Yes [id number] 5mg Take 1 [facility] 5 mg tablet 1-04 tablet by [facility] of 00:00: mouth [place] 00 every Medical morning. Branch amLODIPine 2023-0 Yes [id number] 5mg Take 1 [facility] 5 mg tablet 1-04 tablet by [facility] of 00:00: mouth [place] 00 every Medical morning. Branch amLODIPine 2023-0 Yes [id number] 5mg Take 1 [facility] 5 mg tablet 1-04 tablet by [facility] of 00:00: mouth [place] 00 every Medical morning. Branch amLODIPine 2023-0 Yes [id number] 5mg Take 1 [facility] 5 mg tablet 1-04 tablet by [facility] of 00:00: mouth [place] 00 every Medical morning. Branch amLODIPine 2023-0 Yes [id number] 5mg Take 1 [facility] 5 mg tablet 1-04 tablet by [facility] of 00:00: mouth [place] 00 every Medical morning. Branch amLODIPine 2023-0 Yes [id number] 5mg Take 1 [facility] 5 mg tablet 1-04 tablet by [facility] of 00:00: mouth [place] 00 every Medical morning. Branch amLODIPine 2023-0 Yes [id number] 5mg Take 1 [facility] 5 mg tablet 1-04 tablet by [facility] of 00:00: mouth [place] 00 every Medical morning. Branch amLODIPine 2023-0 Yes [id number] 5mg Take 1 [facility] 5 mg tablet 1-04 tablet by [facility] of 00:00: mouth [place] 00 every Medical morning. Branch amLODIPine 2023-0 Yes [id number] 5mg Take 1 [facility] 5 mg tablet 1-04 tablet by [facility] of 00:00: mouth [place] 00 every Medical morning. Branch amLODIPine 2023-0 Yes [id number] 5mg Take 1 [facility] 5 mg tablet 1-04 tablet by [facility] of 00:00: mouth [place] 00 every Medical morning. Branch amLODIPine 2023-0 Yes [id number] 5mg Take 1 [facility] 5 mg tablet 1-04 tablet by [facility] of 00:00: mouth [place] 00 every Medical morning. Branch amLODIPine 2023-0 Yes [id number] 5mg Take 1 [facility] 5 mg tablet 1-04 tablet by [facility] of 00:00: mouth [place] 00 every Medical morning. Branch amLODIPine 2023-0 Yes [id number] 5mg Take 1 [facility] 5 mg tablet 1-04 tablet by [facility] of 00:00: mouth [place] 00 every Medical morning. Branch amLODIPine 2023-0 Yes [id number] 5mg Take 1 [facility] 5 mg tablet 1-04 tablet by [facility] of 00:00: mouth [place] 00 every Medical morning. Branch amLODIPine 2023-0 Yes [id number] 5mg Take 1 [facility] 5 mg tablet 1-04 tablet by [facility] of 00:00: mouth [place] 00 every Medical morning. Branch amLODIPine 2023-0 Yes [id number] 5mg Take 1 [facility] 5 mg tablet 1-04 tablet by [facility] of 00:00: mouth [place] 00 every Medical morning. Branch amLODIPine 2023-0 Yes [id number] 5mg Take 1 [facility] 5 mg tablet 1-04 tablet by [facility] of 00:00: mouth [place] 00 every Medical morning. Branch amLODIPine 2023-0 Yes [id number] 5mg Take 1 [facility] 5 mg tablet 1-04 tablet by [facility] of 00:00: mouth [place] 00 every Medical morning. Branch amLODIPine 2023-0 Yes [id number] 5mg Take 1 [facility] 5 mg tablet 1-04 tablet by [facility] of 00:00: mouth [place] 00 every Medical morning. Branch amLODIPine 2023-0 Yes [id number] 5mg Take 1 [facility] 5 mg tablet 1-04 tablet by [facility] of 00:00: mouth [place] 00 every Medical morning. Branch amLODIPine 2023-0 Yes [id number] 5mg Take 1 [facility] 5 mg tablet 1-04 tablet by [facility] of 00:00: mouth [place] 00 every Medical morning. Branch amLODIPine 2023-0 Yes [id number] 5mg Take 1 [facility] 5 mg tablet 1-04 tablet by [facility] of 00:00: mouth [place] 00 every Medical morning. Branch amLODIPine 2023-0 Yes [id number] 5mg Take 1 [facility] 5 mg tablet 1-04 tablet by [facility] of 00:00: mouth [place] 00 every Medical morning. Branch amLODIPine 2023-0 Yes [id number] 5mg Take 1 [facility] 5 mg tablet 1-04 tablet by [facility] of 00:00: mouth [place] 00 every Medical morning. Branch amLODIPine 2023-0 Yes [id number] 5mg Take 1 [facility] 5 mg tablet 1-04 tablet by [facility] of 00:00: mouth [place] 00 every Medical morning. Branch amLODIPine 2023-0 Yes [id number] 5mg Take 1 [facility] 5 mg tablet 1-04 tablet by [facility] of 00:00: mouth [place] 00 every Medical morning. Branch amLODIPine 2023-0 Yes [id number] 5mg Take 1 [facility] 5 mg tablet 1-04 tablet by [facility] of 00:00: mouth [place] 00 every Medical morning. Branch amLODIPine 2023-0 Yes [id number] 5mg Take 1 [facility] 5 mg tablet 1-04 tablet by [facility] of 00:00: mouth [place] 00 every Medical morning. Branch amLODIPine 2023-0 Yes [id number] 5mg Take 1 [facility] 5 mg tablet 1-04 tablet by [facility] of 00:00: mouth [place] 00 every Medical morning. Branch amLODIPine 2023-0 Yes [id number] 5mg Take 1 [facility] 5 mg tablet 1-04 tablet by [facility] of 00:00: mouth [place] 00 every Medical morning. Branch amLODIPine 2023-0 Yes [id number] 5mg Take 1 [facility] 5 mg tablet 1-04 tablet by [facility] of 00:00: mouth [place] 00 every Medical morning. Branch amLODIPine 2023-0 Yes [id number] 5mg Take 1 [facility] 5 mg tablet 1-04 tablet by [facility] of 00:00: mouth [place] 00 every Medical morning. Branch amLODIPine 2023-0 Yes [id number] 5mg Take 1 [facility] 5 mg tablet 1-04 tablet by [facility] of 00:00: mouth [place] 00 every Medical morning. Branch amLODIPine 2023-0 Yes [id number] 5mg Take 1 [facility] 5 mg tablet 1-04 tablet by [facility] of 00:00: mouth [place] 00 every Medical morning. Branch amLODIPine 2023-0 Yes [id number] 5mg Take 1 [facility] 5 mg tablet 1-04 tablet by [facility] of 00:00: mouth [place] 00 every Medical morning. Branch amLODIPine 2023-0 Yes [id number] 5mg Take 1 [facility] 5 mg tablet 1-04 tablet by [facility] of 00:00: mouth [place] 00 every Medical morning. Branch amLODIPine 2023-0 Yes [id number] 5mg Take 1 [facility] 5 mg tablet 1-04 tablet by [facility] of 00:00: mouth [place] 00 every Medical morning. Branch amLODIPine 2023-0 Yes [id number] 5mg Take 1 [facility] 5 mg tablet 1-04 tablet by [facility] of 00:00: mouth [place] 00 every Medical morning. Branch amLODIPine 2023-0 Yes [id number] 5mg Take 1 [facility] 5 mg tablet 1-04 tablet by [facility] of 00:00: mouth [place] 00 every Medical morning. Branch amLODIPine 2023-0 Yes [id number] 5mg Take 1 [facility] 5 mg tablet 1-04 tablet by [facility] 00:00: mouth [place] 00 every Medical morning. Branch amLODIPine 2023-0 Yes [id number] 5mg Take 1 [facility] 5 mg tablet 1-04 tablet by [facility] 00:00: mouth [place] 00 every Medical morning. Branch amLODIPine 2023-0 Yes [id number] 5mg Take 1 [facility] 5 mg tablet 1-04 tablet by [facility] 00:00: mouth [place] 00 every Medical morning. Branch amLODIPine 2023-0 Yes [id number] 5mg Take 1 [facility] 5 mg tablet 1-04 tablet by [facility] of 00:00: mouth [place] 00 every Medical morning. Branch amLODIPine 2023-0 Yes [id number] 5mg Take 1 [facility] 5 mg tablet 1-04 tablet by [facility] of 00:00: mouth [place] 00 every Medical morning. Branch amLODIPine 2023-0 Yes [id number] 5mg Take 1 [facility] 5 mg tablet 1-04 tablet by [facility] of 00:00: mouth [place] 00 every Medical morning. Branch amLODIPine 2023-0 Yes [id number] 5mg Take 1 [facility] 5 mg tablet 1-04 tablet by [facility] of 00:00: mouth [place] 00 every Medical morning. Branch amLODIPine 2023-0 Yes [id number] 5mg Take 1 [facility] 5 mg tablet 1-04 tablet by [facility] of 00:00: mouth [place] 00 every Medical morning. Branch amLODIPine 2023-0 Yes [id number] 5mg Take 1 [facility] 5 mg tablet 1-04 tablet by [facility] of 00:00: mouth [place] 00 every Medical morning. Branch amLODIPine 2023-0 Yes [id number] 5mg Take 1 [facility] 5 mg tablet 1-04 tablet by [facility] of 00:00: mouth [place] 00 every Medical morning. Branch amLODIPine 2023-0 Yes [id number] 5mg Take 1 [facility] 5 mg tablet 1-04 tablet by [facility] of 00:00: mouth [place] 00 every Medical morning. Branch amLODIPine 2023-0 Yes [id number] 5mg Take 1 [facility] 5 mg tablet 1-04 tablet by [facility] of 00:00: mouth [place] 00 every Medical morning. Branch amLODIPine 2023-0 Yes [id number] 5mg Take 1 [facility] 5 mg tablet 1-04 tablet by [facility] of 00:00: mouth [place] 00 every Medical morning. Branch amLODIPine 2023-0 Yes [id number] 5mg Take 1 [facility] 5 mg tablet 1-04 tablet by [facility] of 00:00: mouth [place] 00 every Medical morning. Branch amLODIPine 2023-0 Yes [id number] 5mg Take 1 [facility] 5 mg tablet 1-04 tablet by [facility] of 00:00: mouth [place] 00 every Medical morning. Branch amLODIPine 2023-0 Yes [id number] 5mg Take 1 [facility] 5 mg tablet 1-04 tablet by [facility] of 00:00: mouth [place] 00 every Medical morning. Branch amLODIPine 2023-0 Yes [id number] 5mg Take 1 [facility] 5 mg tablet 1-04 tablet by [facility] of 00:00: mouth [place] 00 every Medical morning. Branch amLODIPine 2023-0 Yes [id number] 5mg Take 1 [facility] 5 mg tablet 1-04 tablet by [facility] of 00:00: mouth [place] 00 every Medical morning. Branch amLODIPine 2023-0 Yes [id number] 5mg Take 1 [facility] 5 mg tablet 1-04 tablet by [facility] of 00:00: mouth [place] 00 every Medical morning. Branch amLODIPine 2023-0 Yes [id number] 5mg Take 1 [facility] 5 mg tablet 1-04 tablet by [facility] of 00:00: mouth [place] 00 every Medical morning. Branch amLODIPine 2023-0 Yes [id number] 5mg Take 1 [facility] 5 mg tablet 1-04 tablet by [facility] of 00:00: mouth [place] 00 every Medical morning. Branch amLODIPine 2023-0 Yes [id number] 5mg Take 1 [facility] 5 mg tablet 1-04 tablet by [facility] of 00:00: mouth [place] 00 every Medical morning. Branch amLODIPine 2023-0 Yes [id number] 5mg Take 1 [facility] 5 mg tablet 1-04 tablet by [facility] of 00:00: mouth [place] 00 every Medical morning. Branch amLODIPine 2023-0 Yes [id number] 5mg Take 1 [facility] 5 mg tablet 1-04 tablet by [facility] of 00:00: mouth [place] 00 every Medical morning. Branch amLODIPine 2023-0 Yes [id number] 5mg Take 1 [facility] 5 mg tablet 1-04 tablet by [facility] of 00:00: mouth [place] 00 every Medical morning. Branch amLODIPine 2023-0 Yes [id number] 5mg Take 1 [facility] 5 mg tablet 1-04 tablet by [facility] of 00:00: mouth [place] 00 every Medical morning. Branch amLODIPine 2023-0 Yes [id number] 5mg Take 1 [facility] 5 mg tablet 1-04 tablet by [facility] 00:00: mouth [place] 00 every Medical morning. Branch amLODIPine 2023-0 Yes [id number] 5mg Take 1 [facility] 5 mg tablet 1-04 tablet by [facility] of 00:00: mouth [place] 00 every Medical morning. Branch amLODIPine 2023-0 Yes [id number] 5mg Take 1 [facility] 5 mg tablet 1-04 tablet by [facility] 00:00: mouth [place] 00 every Medical morning. Branch amLODIPine 0 Yes [id number] 5mg Take 1 [facility] 5 mg tablet 1-04 tablet by [facility] 00:00: mouth [place] 00 every Medical morning. Branch amLODIPine 0 Yes [id number] 5mg Take 1 [facility] 5 mg tablet 1-04 tablet by [facility] of 00:00: mouth [place] 00 every Medical morning. Branch BD ADELA 2021-11 Yes USE TO [facility] GEN PEN 2-29 INJECT [facility] of NEEDLE 32 00:00: INSULIN [place] gauge x 00 4-5 TIMES Medical 5/32" Ndle A DAY Branch BD ADELA 2021-11 Yes USE TO [facility] GEN PEN 2-29 INJECT ity of NEEDLE 32 00:00: INSULIN [place] gauge x 00 4-5 TIMES Medical 5/32" Ndle A DAY Branch BD ADELA 2021-11 Yes USE TO [facility] GEN PEN 2-29 INJECT ity of NEEDLE 32 00:00: INSULIN [place] gauge x 00 4-5 TIMES Medical 5/32" Ndle A DAY Branch BD ADELA 2021-11 Yes USE TO [facility] GEN PEN 2-29 INJECT ity of NEEDLE 32 00:00: INSULIN [place] gauge x 00 4-5 TIMES Medical 5/32" Ndle A DAY Branch BD ADELA 2021-11 Yes USE TO [facility] GEN PEN 2-29 INJECT ity of NEEDLE 32 00:00: INSULIN [place] gauge x 00 4-5 TIMES Medical 5/32" Ndle A DAY Branch BD ADELA 2021-11 Yes USE TO [facility] GEN PEN 2-29 INJECT ity of NEEDLE 32 00:00: INSULIN [place] gauge x 00 4-5 TIMES Medical 5/32" Ndle A DAY Branch BD ADELA 2021-11 Yes USE TO [facility] GEN PEN 2-29 INJECT ity of NEEDLE 32 00:00: INSULIN [place] gauge x 00 4-5 TIMES Medical 5/32" Ndle A DAY Branch BD ADELA 2021-11 Yes USE TO [facility] GEN PEN 2-29 INJECT ity of NEEDLE 32 00:00: INSULIN [place] gauge x 00 4-5 TIMES Medical 5/32" Ndle A DAY Branch BD ADELA 2021-11 Yes USE TO [facility] GEN PEN 2-29 INJECT ity of NEEDLE 32 00:00: INSULIN [place] gauge x 00 4-5 TIMES Medical 5/32" Ndle A DAY Branch BD ADELA 2021-11 Yes USE TO [facility] GEN PEN 2-29 INJECT ity of NEEDLE 32 00:00: INSULIN [place] gauge x 00 4-5 TIMES Medical 5/32" Ndle A DAY Branch BD ADELA 2021-11 Yes USE TO [facility] GEN PEN 2-29 INJECT ity of NEEDLE 32 00:00: INSULIN [place] gauge x 00 4-5 TIMES Medical 5/32" Ndle A DAY Branch BD ADELA 2021-11 Yes USE TO [facility] GEN PEN 2-29 INJECT ity of NEEDLE 32 00:00: INSULIN [place] gauge x 00 4-5 TIMES Medical 5/32" Ndle A DAY Branch BD ADELA 2021-11 Yes USE TO [facility] GEN PEN 2-29 INJECT ity of NEEDLE 32 00:00: INSULIN [place] gauge x 00 4-5 TIMES Medical 5/32" Ndle A DAY Branch BD ADELA 2021-11 Yes USE TO [facility] GEN PEN 2-29 INJECT ity of NEEDLE 32 00:00: INSULIN [place] gauge x 00 4-5 TIMES Medical 5/32" Ndle A DAY Branch BD ADELA 2021-11 Yes USE TO [facility] GEN PEN 2-29 INJECT ity of NEEDLE 32 00:00: INSULIN [place] gauge x 00 4-5 TIMES Medical 5/32" Ndle A DAY Branch BD ADELA 2021-11 Yes USE TO [facility] GEN PEN 2-29 INJECT ity of NEEDLE 32 00:00: INSULIN [place] gauge x 00 4-5 TIMES Medical 5/32" Ndle A DAY Branch BD ADELA 2021-11 Yes USE TO [facility] GEN PEN 2-29 INJECT ity of NEEDLE 32 00:00: INSULIN [place] gauge x 00 4-5 TIMES Medical 5/32" Ndle A DAY Branch BD ADELA 2021-11 Yes USE TO [facility] GEN PEN 2-29 INJECT ity of NEEDLE 32 00:00: INSULIN [place] gauge x 00 4-5 TIMES Medical 5/32" Ndle A DAY Branch BD ADELA 2021-11 Yes USE TO [facility] GEN PEN 2-29 INJECT ity of NEEDLE 32 00:00: INSULIN [place] gauge x 00 4-5 TIMES Medical 5/32" Ndle A DAY Branch BD ADELA 2021-11 Yes USE TO [facility] GEN PEN 2-29 INJECT ity of NEEDLE 32 00:00: INSULIN [place] gauge x 00 4-5 TIMES Medical 5/32" Ndle A DAY Branch BD ADELA 2021-11 Yes USE TO [facility] GEN PEN 2-29 INJECT ity of NEEDLE 32 00:00: INSULIN [place] gauge x 00 4-5 TIMES Medical 5/32" Ndle A DAY Branch BD ADELA 2021-11 Yes USE TO [facility] GEN PEN 2-29 INJECT ity of NEEDLE 32 00:00: INSULIN [place] gauge x 00 4-5 TIMES Medical 5/32" Ndle A DAY Branch BD ADELA 2021-11 Yes USE TO [facility] GEN PEN 2-29 INJECT ity of NEEDLE 32 00:00: INSULIN [place] gauge x 00 4-5 TIMES Medical 5/32" Ndle A DAY Branch BD ADELA 2021-11 Yes USE TO [facility] GEN PEN 2-29 INJECT ity of NEEDLE 32 00:00: INSULIN [place] gauge x 00 4-5 TIMES Medical 5/32" Ndle A DAY Branch BD ADELA 2021-11 Yes USE TO [facility] GEN PEN 2-29 INJECT ity of NEEDLE 32 00:00: INSULIN [place] gauge x 00 4-5 TIMES Medical 5/32" Ndle A DAY Branch BD ADELA 2021-11 Yes USE TO [facility] GEN PEN 2-29 INJECT ity of NEEDLE 32 00:00: INSULIN [place] gauge x 00 4-5 TIMES Medical 5/32" Ndle A DAY Branch BD ADELA 2021-11 Yes USE TO [facility] GEN PEN 2-29 INJECT ity of NEEDLE 32 00:00: INSULIN [place] gauge x 00 4-5 TIMES Medical 5/32" Ndle A DAY Branch BD ADELA 2021-11 Yes USE TO [facility] GEN PEN 2-29 INJECT ity of NEEDLE 32 00:00: INSULIN [place] gauge x 00 4-5 TIMES Medical 5/32" Ndle A DAY Branch BD [place] 2021-11 Yes USE TO [facility] GEN PEN 2-29 INJECT ity of NEEDLE 32 00:00: INSULIN [place] gauge x 00 4-5 TIMES Medical 5/32" Ndle A DAY Branch BD [place]DE[place] 2021-11 Yes USE TO [facility] GEN PEN 2-29 INJECT ity of NEEDLE 32 00:00: INSULIN [place] gauge x 00 4-5 TIMES Medical 5/32" Ndle A DAY Branch BD [place]DE[place] 2021-11 Yes USE TO [facility] GEN PEN 2-29 INJECT ity of NEEDLE 32 00:00: INSULIN [place] gauge x 00 4-5 TIMES Medical 5/32" Ndle A DAY Branch BD ADELA 2021-11 Yes USE TO [facility] GEN PEN 2-29 INJECT ity of NEEDLE 32 00:00: INSULIN [place] gauge x 00 4-5 TIMES Medical 5/32" Ndle A DAY Branch BD ADLEA 2021-11 Yes USE TO [facility] GEN PEN 2-29 INJECT ity of NEEDLE 32 00:00: INSULIN [place] gauge x 00 4-5 TIMES Medical 5/32" Ndle A DAY Branch BD ADELA 2021-11 Yes USE TO [facility] GEN PEN 2-29 INJECT ity of NEEDLE 32 00:00: INSULIN [place] gauge x 00 4-5 TIMES Medical 5/32" Ndle A DAY Branch BD ADE[place] 2021-11 Yes USE TO [facility] GEN PEN 2-29 INJECT ity of NEEDLE 32 00:00: INSULIN [place] gauge x 00 4-5 TIMES Medical 5/32" Ndle A DAY Branch BD ADELA 2021-11 Yes USE TO [facility] GEN PEN 2-29 INJECT ity of NEEDLE 32 00:00: INSULIN [place] gauge x 00 4-5 TIMES Medical 5/32" Ndle A DAY Branch BD ADELA 2021-11 Yes USE TO [facility] GEN PEN 2-29 INJECT ity of NEEDLE 32 00:00: INSULIN [place] gauge x 00 4-5 TIMES Medical 5/32" Ndle A DAY Branch BD [place] 2021-11 Yes USE TO [facility] GEN PEN 2-29 INJECT ity of NEEDLE 32 00:00: INSULIN [place] gauge x 00 4-5 TIMES Medical 5/32" Ndle A DAY Branch BD [place] 2021-11 Yes USE TO [facility] GEN PEN 2-29 INJECT ity of NEEDLE 32 00:00: INSULIN [place] gauge x 00 4-5 TIMES Medical 5/32" Ndle A DAY Branch BD ADELA 2021-11 Yes USE TO [facility] GEN PEN 2-29 INJECT ity of NEEDLE 32 00:00: INSULIN [place] gauge x 00 4-5 TIMES Medical 5/32" Ndle A DAY Branch BD [place] 2021-11 Yes USE TO [facility] GEN PEN 2-29 INJECT ity of NEEDLE 32 00:00: INSULIN [place] gauge x 00 4-5 TIMES Medical 5/32" Ndle A DAY Branch BD [place] 2021-11 Yes USE TO [facility] GEN PEN 2-29 INJECT ity of NEEDLE 32 00:00: INSULIN [place] gauge x 00 4-5 TIMES Medical 5/32" Ndle A DAY Branch BD ADELA 2021-11 Yes USE TO [facility] GEN PEN 2-29 INJECT ity of NEEDLE 32 00:00: INSULIN [place] gauge x 00 4-5 TIMES Medical 5/32" Ndle A DAY Branch BD ADELA 2021-11 Yes USE TO [facility] GEN PEN 2-29 INJECT ity of NEEDLE 32 00:00: INSULIN [place] gauge x 00 4-5 TIMES Medical 5/32" Ndle A DAY Branch BD [place] 2021-11 Yes USE TO [facility] GEN PEN 2-29 INJECT ity of NEEDLE 32 00:00: INSULIN [place] gauge x 00 4-5 TIMES Medical 5/32" Ndle A DAY Branch BD [place] 2021-11 Yes USE TO [facility] GEN PEN 2-29 INJECT ity of NEEDLE 32 00:00: INSULIN [place] gauge x 00 4-5 TIMES Medical 5/32" Ndle A DAY Branch BD ADELA 2021-11 Yes USE TO [facility] GEN PEN 2-29 INJECT ity of NEEDLE 32 00:00: INSULIN [place] gauge x 00 4-5 TIMES Medical 5/32" Ndle A DAY Branch BD ADELA 2021-11 Yes USE TO [facility] GEN PEN 2-29 INJECT ity of NEEDLE 32 00:00: INSULIN [place] gauge x 00 4-5 TIMES Medical 5/32" Ndle A DAY [facility] BD [facility] 2021-11 Yes [facility] GEN PEN 2-29 INJECT ity of NEEDLE 32 00:00: INSULIN [place] gauge x 00 4-5 TIMES Medical 5/32" Ndle A DAY [facility] BD A[facility] 2021-11 Yes USE TO [facility] GEN PEN 2-29 INJECT ity of NEEDLE 32 00:00: INSULIN [place] gauge x 00 4-5 TIMES Medical 5/32" Ndle A DAY Branch BD A[facility] 2021-11 Yes USE TO [facility] GEN PEN 2-29 INJECT ity of NEEDLE 32 00:00: INSULIN [place] gauge x 00 4-5 TIMES Medical 5/32" Ndle A DAY [facility] BD A[facility] 2021-11 Yes USE TO [facility] GEN PEN 2-29 INJECT ity of NEEDLE 32 00:00: INSULIN [place] gauge x 00 4-5 TIMES Medical 5/32" Ndle A DAY [facility] BD A[facility] 2021-11 Yes USE TO [facility] GEN PEN 2-29 INJECT ity of NEEDLE 32 00:00: INSULIN [place] gauge x 00 4-5 TIMES Medical 5/32" Ndle A DAY [facility] BD [facility] 2021-11 Yes USE TO [facility] GEN PEN 2-29 INJECT ity of NEEDLE 32 00:00: INSULIN [place] gauge x 00 4-5 TIMES Medical 5/32" Ndle A DAY [facility] BD [facility] 2021-11 Yes USE TO [facility] GEN PEN 2-29 INJECT ity of NEEDLE 32 00:00: INSULIN [place] gauge x 00 4-5 TIMES Medical 5/32" Ndle A DAY [facility] BD [facility] 2021-11 Yes USE TO [facility] GEN PEN 2-29 INJECT ity of NEEDLE 32 00:00: INSULIN [place] gauge x 00 4-5 TIMES Medical 5/32" Ndle A DAY [facility] BD [facility] 2021-11 Yes USE TO [facility] GEN PEN 2-29 INJECT ity of NEEDLE 32 00:00: INSULIN [place] gauge x 00 4-5 TIMES Medical 5/32" Ndle A DAY [facility] BD A[facility] 2021-11 Yes USE TO [facility] GEN PEN 2-29 INJECT ity of NEEDLE 32 00:00: INSULIN [place] gauge x 00 4-5 TIMES Medical 5/32" Ndle A DAY [facility] BD A[facility] 2021-11 Yes USE TO [facility] GEN PEN 2-29 INJECT ity of NEEDLE 32 00:00: INSULIN [place] gauge x 00 4-5 TIMES Medical 5/32" Ndle A DAY [facility] BD A[facility] 2021-11 Yes USE TO [facility] GEN PEN 2-29 INJECT ity of NEEDLE 32 00:00: INSULIN [place] gauge x 00 4-5 TIMES Medical 5/32" Ndle A DAY [facility] BD A[facility] 2021-11 Yes USE TO [facility] GEN PEN 2-29 INJECT ity of NEEDLE 32 00:00: INSULIN [place] gauge x 00 4-5 TIMES Medical 5/32" Ndle A DAY [facility] BD A[facility] 2021-11 Yes USE TO [facility] GEN PEN 2-29 INJECT ity of NEEDLE 32 00:00: INSULIN [place] gauge x 00 4-5 TIMES Medical 5/32" Ndle A DAY [facility] BD A[facility] 2021-11 Yes USE TO [facility] GEN PEN 2-29 INJECT ity of NEEDLE 32 00:00: INSULIN [place] gauge x 00 4-5 TIMES Medical 5/32" Ndle A DAY [facility] BD A[facility] 2021-11 Yes USE TO [facility] GEN PEN 2-29 INJECT ity of NEEDLE 32 00:00: INSULIN [place] gauge x 00 4-5 TIMES Medical 5/32" Ndle A DAY [facility] BD [facility] 2021-11 Yes USE TO [facility] GEN PEN 2-29 INJECT ity of NEEDLE 32 00:00: INSULIN [place] gauge x 00 4-5 TIMES Medical 5/32" Ndle A DAY [facility] BD [facility] 2021-11 Yes USE TO [facility] GEN PEN 2-29 INJECT ity of NEEDLE 32 00:00: INSULIN [place] gauge x 00 4-5 TIMES Medical 5/32" Ndle A DAY [facility] BD [facility] 2021-11 Yes USE TO [facility] GEN PEN 2-29 INJECT ity of NEEDLE 32 00:00: INSULIN [place] gauge x 00 4-5 TIMES Medical 5/32" Ndle A DAY [facility] BD [facility] 2021-11 Yes USE TO [facility] GEN PEN 2-29 INJECT ity of NEEDLE 32 00:00: INSULIN [place] gauge x 00 4-5 TIMES Medical 5/32" Ndle A DAY [facility] BD [facility] 2021-11 Yes USE TO [facility] GEN PEN 2-29 INJECT ity of NEEDLE 32 00:00: INSULIN [place] gauge x 00 4-5 TIMES Medical 5/32" Ndle A DAY [facility] BD [facility] 2021-11 Yes USE TO [facility] GEN PEN 2-29 INJECT ity of NEEDLE 32 00:00: INSULIN [place] gauge x 00 4-5 TIMES Medical 5/32" Ndle A DAY [facility] BD A[facility] 2021-11 Yes USE TO [facility] GEN PEN 2-29 INJECT ity of NEEDLE 32 00:00: INSULIN [place] gauge x 00 4-5 TIMES Medical 5/32" Ndle A DAY [facility] BD A[facility] 2021-11 Yes USE TO [facility] GEN PEN 2-29 INJECT ity of NEEDLE 32 00:00: INSULIN [place] gauge x 00 4-5 TIMES Medical 5/32" Ndle A DAY [facility] BD A[facility] 2021-11 Yes USE TO [facility] GEN PEN 2-29 INJECT ity of NEEDLE 32 00:00: INSULIN [place] gauge x 00 4-5 TIMES Medical 5/32" Ndle A DAY [facility] BD ADELA 2021-11 Yes USE TO [facility] GEN PEN 2-29 INJECT ity of NEEDLE 32 00:00: INSULIN [place] gauge x 00 4-5 TIMES Medical 5/32" Ndle A DAY [facility] BD ADE[facility] 2021-11 Yes USE TO [facility] GEN PEN 2-29 INJECT ity of NEEDLE 32 00:00: INSULIN [place] gauge x 00 4-5 TIMES Medical 5/32" Ndle A DAY [facility] BD A[facility] 2021-11 Yes USE TO [facility] GEN PEN 2-29 INJECT ity of NEEDLE 32 00:00: INSULIN [place] gauge x 00 4-5 TIMES Medical 5/32" Ndle A DAY [facility] BD A[facility] 2021-11 Yes USE TO [facility] GEN PEN 2-29 INJECT ity of NEEDLE 32 00:00: INSULIN [place] gauge x 00 4-5 TIMES Medical 5/32" Ndle A DAY Branch BD ADE[facility] 2021-11 Yes USE TO [facility] GEN PEN 2-29 INJECT ity of NEEDLE 32 00:00: INSULIN [place] gauge x 00 4-5 TIMES Medical 5/32" Ndle A DAY Branch BD ADE[facility] 2021-11 Yes USE TO [facility] GEN PEN 2-29 INJECT ity of NEEDLE 32 00:00: INSULIN [place] gauge x 00 4-5 TIMES Medical 5/32" Ndle A DAY Branch BD ADELA 2021-[address] [facility] ers GEN PEN 2-29 INJECT ity of NEEDLE 32 00:00: INSULIN [place] gauge x 00 4-5 TIMES Medical 5/32" Ndle A DAY Branch BD ADELA 2021-[address] [facility] ers GEN PEN 2-29 INJECT ity of NEEDLE 32 00:00: INSULIN [place] gauge x 00 4-5 TIMES Medical 5/32" Ndle A DAY Branch BD A[facility] 2021-11 Yes USE TO [facility] GEN PEN 2-29 INJECT ity of NEEDLE 32 00:00: INSULIN [place] gauge x 00 4-5 TIMES Medical 5/32" Ndle A DAY Branch BD A[facility] 2021-11 Yes USE TO [facility] GEN PEN 2-29 INJECT ity of NEEDLE 32 00:00: INSULIN [place] gauge x 00 4-5 TIMES Medical 5/32" Ndle A DAY [facility] BD [facility] 2021-11 Yes USE TO [facility] GEN PEN 2-29 INJECT ity of NEEDLE 32 00:00: INSULIN [place] gauge x 00 4-5 TIMES Medical 5/32" Ndle A DAY Branch BD [facility] 2021-11 Yes USE TO [facility] GEN PEN 2-29 INJECT ity of NEEDLE 32 00:00: INSULIN [place] gauge x 00 4-5 TIMES Medical 5/32" Ndle A DAY Branch Thyroid, 2021-11 Yes [id number] 90mg Take 1 [facility] [place], 2-21 tablet by ity of (ARMOUR 00:00: mouth [place] THYROID) 90 00 daily Medical mg tablet before Branch breakfast. Thyroid, 2021-11 Yes [id number] 90mg Take 1 [facility] [place], 2-21 tablet by ity of (ARMOUR 00:00: mouth [place] THYROID) 90 00 daily Medical mg tablet before Branch breakfast. Thyroid, 2021-11 Yes [id number] 90mg Take 1 [facility] [place], 2-21 tablet by ity of (ARMOUR 00:00: mouth [place] THYROID) 90 00 daily Medical mg tablet before Branch breakfast. Thyroid, 2021-11 Yes [id number] 90mg Take 1 [facility] [place], 2-21 tablet by ity of (ARMOUR 00:00: mouth [place] THYROID) 90 00 daily Medical mg tablet before Branch breakfast. Thyroid, 2021-11 Yes [id number] 90mg Take 1 [facility] [place], 2-21 tablet by ity of (ARMOUR 00:00: mouth [place] THYROID) 90 00 daily Medical mg tablet before Branch breakfast. Thyroid, 2021-11 Yes [id number] 90mg Take 1 [facility] [place], 2-21 tablet by ity of (ARMOUR 00:00: mouth [place] THYROID) 90 00 daily Medical mg tablet before Branch breakfast. Thyroid, 2021-11 Yes [id number] 90mg Take 1 [facility] [place], 2-21 tablet by ity of (ARMOUR 00:00: mouth [place] THYROID) 90 00 daily Medical mg tablet before Branch breakfast. Thyroid, 2021-11 Yes [id number] 90mg Take 1 [facility] [place], 2-21 tablet by ity of (ARMOUR 00:00: mouth [place] THYROID) 90 00 daily Medical mg tablet before Branch breakfast. Thyroid, 2021-11 Yes [id number] 90mg Take 1 [facility] [place], 2-21 tablet by ity of (ARMOUR 00:00: mouth [place] THYROID) 90 00 daily Medical mg tablet before Branch breakfast. Thyroid, 2021-11 Yes [id number] 90mg Take 1 [facility] [place], 2-21 tablet by ity of (ARMOUR 00:00: mouth [place] THYROID) 90 00 daily Medical mg tablet before Branch breakfast. Thyroid, 2021-11 Yes [id number] 90mg Take 1 [facility] [place], 2-21 tablet by ity of (ARMOUR 00:00: mouth [place] THYROID) 90 00 daily Medical mg tablet before Branch breakfast. Thyroid, 2021-11 Yes [id number] 90mg Take 1 [facility] [place], 2-21 tablet by ity of (ARMOUR 00:00: mouth [place] THYROID) 90 00 daily Medical mg tablet before Branch breakfast. Thyroid, 2021-11 Yes [id number] 90mg Take 1 [facility] [place], 2-21 tablet by ity of (ARMOUR 00:00: mouth [place] THYROID) 90 00 daily Medical mg tablet before Branch breakfast. Thyroid, 2021-11 Yes [id number] 90mg Take 1 [facility] [place], 2-21 tablet by ity of (ARMOUR 00:00: mouth [place] THYROID) 90 00 daily Medical mg tablet before Branch breakfast. Thyroid, 2021-11 Yes [id number] 90mg Take 1 [facility] [place], 2-21 tablet by ity of (ARMOUR 00:00: mouth [place] THYROID) 90 00 daily Medical mg tablet before Branch breakfast. Thyroid, 2021-11 Yes [id number] 90mg Take 1 [facility] [place], 2-21 tablet by ity of (ARMOUR 00:00: mouth [place] THYROID) 90 00 daily Medical mg tablet before Branch breakfast. Thyroid, 2021-11 Yes [id number] 90mg Take 1 [facility] [place], 2-21 tablet by ity of (ARMOUR 00:00: mouth [place] THYROID) 90 00 daily Medical mg tablet before Branch breakfast. Thyroid, 2021-11 Yes [id number] 90mg Take 1 [facility] [place], 2-21 tablet by ity of (ARMOUR 00:00: mouth [place] THYROID) 90 00 daily Medical mg tablet before Branch breakfast. Thyroid, 2021-11 Yes [id number] 90mg Take 1 [facility] [place], 2-21 tablet by ity of (ARMOUR 00:00: mouth [place] THYROID) 90 00 daily Medical mg tablet before Branch breakfast. Thyroid, 2021-11 Yes [id number] 90mg Take 1 [facility] [place], 2-21 tablet by ity of (ARMOUR 00:00: mouth [place] THYROID) 90 00 daily Medical mg tablet before Branch breakfast. Thyroid, 2021-11 Yes [id number] 90mg Take 1 [facility] [place], 2-21 tablet by ity of (ARMOUR 00:00: mouth [place] THYROID) 90 00 daily Medical mg tablet before Branch breakfast. Thyroid, 2021-11 Yes [id number] 90mg Take 1 [facility] [place], 2-21 tablet by ity of (ARMOUR 00:00: mouth [place] THYROID) 90 00 daily Medical mg tablet before Branch breakfast. Thyroid, 2021-11 Yes [id number] 90mg Take 1 [facility] [place], 2-21 tablet by ity of (ARMOUR 00:00: mouth [place] THYROID) 90 00 daily Medical mg tablet before Branch breakfast. Thyroid, 2021-11 Yes [id number] 90mg Take 1 [facility] [place], 2-21 tablet by ity of (ARMOUR 00:00: mouth [place] THYROID) 90 00 daily Medical mg tablet before Branch breakfast. Thyroid, 2021-11 Yes [id number] 90mg Take 1 [facility] [place], 2-21 tablet by ity of (ARMOUR 00:00: mouth [place] THYROID) 90 00 daily Medical mg tablet before Branch breakfast. Thyroid, 2021-11 Yes [id number] 90mg Take 1 [facility] [place], 2-21 tablet by ity of (ARMOUR 00:00: mouth [place] THYROID) 90 00 daily Medical mg tablet before Branch breakfast. Thyroid, 2021-11 Yes [id number] 90mg Take 1 [facility] [place], 2-21 tablet by ity of (ARMOUR 00:00: mouth [place] THYROID) 90 00 daily Medical mg tablet before Branch breakfast. Thyroid, 2021-11 Yes [id number] 90mg Take 1 [facility] [place], 2-21 tablet by ity of (ARMOUR 00:00: mouth [place] THYROID) 90 00 daily Medical mg tablet before Branch breakfast. Thyroid, 2021-11 Yes [id number] 90mg Take 1 [facility] [place], 2-21 tablet by ity of (ARMOUR 00:00: mouth [place] THYROID) 90 00 daily Medical mg tablet before Branch breakfast. Thyroid, 2021-11 Yes [id number] 90mg Take 1 [facility] [place], 2-21 tablet by ity of (ARMOUR 00:00: mouth [place] THYROID) 90 00 daily Medical mg tablet before Branch breakfast. Thyroid, 2021-11 Yes [id number] 90mg Take 1 [facility] [place], 2-21 tablet by ity of (ARMOUR 00:00: mouth [place] THYROID) 90 00 daily Medical mg tablet before Branch breakfast. Thyroid, 2021-11 Yes [id number] 90mg Take 1 [facility] [place], 2-21 tablet by ity of (ARMOUR 00:00: mouth [place] THYROID) 90 00 daily Medical mg tablet before Branch breakfast. Thyroid, 2021-11 Yes [id number] 90mg Take 1 [facility] [place], 2-21 tablet by ity of (ARMOUR 00:00: mouth [place] THYROID) 90 00 daily Medical mg tablet before Branch breakfast. Thyroid, 2021-11 Yes [id number] 90mg Take 1 [facility] [place], 2-21 tablet by ity of (ARMOUR 00:00: mouth [place] THYROID) 90 00 daily Medical mg tablet before Branch breakfast. Thyroid, 2021-11 Yes [id number] 90mg Take 1 [facility] [place], 2-21 tablet by ity of (ARMOUR 00:00: mouth [place] THYROID) 90 00 daily Medical mg tablet before Branch breakfast. Thyroid, 2021-11 Yes [id number] 90mg Take 1 [facility] [place], 2-21 tablet by ity of (ARMOUR 00:00: mouth [place] THYROID) 90 00 daily Medical mg tablet before Branch breakfast. Thyroid, 2021-11 Yes [id number] 90mg Take 1 [facility] [place], 2-21 tablet by ity of (ARMOUR 00:00: mouth [place] THYROID) 90 00 daily Medical mg tablet before Branch breakfast. Thyroid, 2021-11 Yes [id number] 90mg Take 1 [facility] [place], 2-21 tablet by ity of (ARMOUR 00:00: mouth [place] THYROID) 90 00 daily Medical mg tablet before Branch breakfast. Thyroid, 2021-11 Yes [id number] 90mg Take 1 [facility] [place], 2-21 tablet by ity of (ARMOUR 00:00: mouth [place] THYROID) 90 00 daily Medical mg tablet before Branch breakfast. Thyroid, 2021-11 Yes [id number] 90mg Take 1 [facility] [place], 2-21 tablet by ity of (ARMOUR 00:00: mouth [place] THYROID) 90 00 daily Medical mg tablet before Branch breakfast. Thyroid, 2021-11 Yes [id number] 90mg Take 1 [facility] [place], 2-21 tablet by ity of (ARMOUR 00:00: mouth [place] THYROID) 90 00 daily Medical mg tablet before Branch breakfast. Thyroid, 2021-11 Yes [id number] 90mg Take 1 [facility] [place], 2-21 tablet by ity of (ARMOUR 00:00: mouth [place] THYROID) 90 00 daily Medical mg tablet before Branch breakfast. Thyroid, 2021-11 Yes [id number] 90mg Take 1 [facility] [place], 2-21 tablet by ity of (ARMOUR 00:00: mouth [place] THYROID) 90 00 daily Medical mg tablet before Branch breakfast. Thyroid, 2021-11 Yes [id number] 90mg Take 1 [facility] [place], 2-21 tablet by ity of (ARMOUR 00:00: mouth [place] THYROID) 90 00 daily Medical mg tablet before Branch breakfast. Thyroid, 2021-11 Yes [id number] 90mg Take 1 [facility] [place], 2-21 tablet by ity of (ARMOUR 00:00: mouth [place] THYROID) 90 00 daily Medical mg tablet before Branch breakfast. Thyroid, 2021-11 Yes [id number] 90mg Take 1 [facility] [place], 2-21 tablet by ity of (ARMOUR 00:00: mouth [place] THYROID) 90 00 daily Medical mg tablet before Branch breakfast. Thyroid, 2021-11 Yes [id number] 90mg Take 1 [facility] [place], 2-21 tablet by ity of (ARMOUR 00:00: mouth [place] THYROID) 90 00 daily Medical mg tablet before Branch breakfast. Thyroid, 2021-11 Yes [id number] 90mg Take 1 [facility] [place], 2-21 tablet by ity of (ARMOUR 00:00: mouth [place] THYROID) 90 00 daily Medical mg tablet before Branch breakfast. Thyroid, 2021-11 Yes [id number] 90mg Take 1 [facility] [place], 2-21 tablet by ity of (ARMOUR 00:00: mouth [place] THYROID) 90 00 daily Medical mg tablet before Branch breakfast. Thyroid, 2021-11 Yes [id number] 90mg Take 1 [facility] [place], 2-21 tablet by ity of (ARMOUR 00:00: mouth [place] THYROID) 90 00 daily Medical mg tablet before Branch breakfast. Thyroid, 2021-11 Yes [id number] 90mg Take 1 [facility] [place], 2-21 tablet by ity of (ARMOUR 00:00: mouth [place] THYROID) 90 00 daily Medical mg tablet before Branch breakfast. Thyroid, 2021-11 Yes [id number] 90mg Take 1 [facility] [place], 2-21 tablet by ity of (ARMOUR 00:00: mouth [place] THYROID) 90 00 daily Medical mg tablet before Branch breakfast. Thyroid, 2021-11 Yes [id number] 90mg Take 1 [facility] [place], 2-21 tablet by ity of (ARMOUR 00:00: mouth [place] THYROID) 90 00 daily Medical mg tablet before Branch breakfast. Thyroid, 2021-11 Yes [id number] 90mg Take 1 [facility] [place], 2-21 tablet by ity of (ARMOUR 00:00: mouth [place] THYROID) 90 00 daily Medical mg tablet before Branch breakfast. Thyroid, 2021-11 Yes [id number] 90mg Take 1 [facility] [place], 2-21 tablet by ity of (ARMOUR 00:00: mouth [place] THYROID) 90 00 daily Medical mg tablet before Branch breakfast. Thyroid, 2021-11 Yes [id number] 90mg Take 1 [facility] [place], 2-21 tablet by ity of (ARMOUR 00:00: mouth [place] THYROID) 90 00 daily Medical mg tablet before Branch breakfast. Thyroid, 2021-11 Yes [id number] 90mg Take 1 [facility] [place], 2-21 tablet by ity of (ARMOUR 00:00: mouth [place] THYROID) 90 00 daily Medical mg tablet before Branch breakfast. Thyroid, 2021-11 Yes [id number] 90mg Take 1 [facility] [place], 2-21 tablet by ity of (ARMOUR 00:00: mouth [place] THYROID) 90 00 daily Medical mg tablet before Branch breakfast. Thyroid, 2021-11 Yes [id number] 90mg Take 1 [facility] [place], 2-21 tablet by ity of (ARMOUR 00:00: mouth [place] THYROID) 90 00 daily Medical mg tablet before Branch breakfast. Thyroid, 2021-11 Yes [id number] 90mg Take 1 [facility] [place], 2-21 tablet by ity of (ARMOUR 00:00: mouth [place] THYROID) 90 00 daily Medical mg tablet before Branch breakfast. Thyroid, 2021-11 Yes [id number] 90mg Take 1 [facility] [place], 2-21 tablet by ity of (ARMOUR 00:00: mouth [place] THYROID) 90 00 daily Medical mg tablet before Branch breakfast. Thyroid, 2021-11 Yes [id number] 90mg Take 1 [facility] [place], 2-21 tablet by ity of (ARMOUR 00:00: mouth [place] THYROID) 90 00 daily Medical mg tablet before Branch breakfast. Thyroid, 2021-11 Yes [id number] 90mg Take 1 [facility] [place], 2-21 tablet by ity of (ARMOUR 00:00: mouth [place] THYROID) 90 00 daily Medical mg tablet before Branch breakfast. Thyroid, 2021-11 Yes [id number] 90mg Take 1 [facility] [place], 2-21 tablet by ity of (ARMOUR 00:00: mouth [place] THYROID) 90 00 daily Medical mg tablet before Branch breakfast. Thyroid, 2021-11 Yes [id number] 90mg Take 1 [facility] [place], 2-21 tablet by ity of (ARMOUR 00:00: mouth [place] THYROID) 90 00 daily Medical mg tablet before Branch breakfast. Thyroid, 2021-11 Yes [id number] 90mg Take 1 [facility] [place], 2-21 tablet by ity of (ARMOUR 00:00: mouth [place] THYROID) 90 00 daily Medical mg tablet before Branch breakfast. Thyroid, 2021-11 Yes [id number] 90mg Take 1 [facility] [place], 2-21 tablet by ity of (ARMOUR 00:00: mouth [place] THYROID) 90 00 daily Medical mg tablet before Branch breakfast. Thyroid, 2021-11 Yes [id number] 90mg Take 1 [facility] [place], 2-21 tablet by ity of (ARMOUR 00:00: mouth [place] THYROID) 90 00 daily Medical mg tablet before Branch breakfast. Thyroid, 2021-11 Yes [id number] 90mg Take 1 [facility] [place], 2-21 tablet by ity of (ARMOUR 00:00: mouth [place] THYROID) 90 00 daily Medical mg tablet before Branch breakfast. Thyroid, 2021-11 Yes [id number] 90mg Take 1 [facility] [place], 2-21 tablet by ity of (ARMOUR 00:00: mouth [place] THYROID) 90 00 daily Medical mg tablet before Branch breakfast. Thyroid, 2021-11 Yes [id number] 90mg Take 1 [facility] [place], 2-21 tablet by ity of (ARMOUR 00:00: mouth [place] THYROID) 90 00 daily Medical mg tablet before Branch breakfast. Thyroid, 2021-11 Yes [id number] 90mg Take 1 [facility] [place], 2-21 tablet by ity of (ARMOUR 00:00: mouth [place] THYROID) 90 00 daily Medical mg tablet before Branch breakfast. Thyroid, 2021-11 Yes [id number] 90mg Take 1 [facility] [place], 2-21 tablet by ity of (ARMOUR 00:00: mouth [place] THYROID) 90 00 daily Medical mg tablet before Branch breakfast. Thyroid, 2021-11 Yes [id number] 90mg Take 1 [facility] [place], 2-21 tablet by ity of (ARMOUR 00:00: mouth [place] THYROID) 90 00 daily Medical mg tablet before Branch breakfast. Thyroid, 2021-11 Yes [id number] 90mg Take 1 [facility] [place], 2-21 tablet by ity of (ARMOUR 00:00: mouth [place] THYROID) 90 00 daily Medical mg tablet before Branch breakfast. Thyroid, 2021-11 Yes [id number] 90mg Take 1 [facility] [place], 2-21 tablet by ity of (ARMOUR 00:00: mouth [place] THYROID) 90 00 daily Medical mg tablet before Branch breakfast. Thyroid, 2021-11 Yes [id number] 90mg Take 1 [facility] [place], 2-21 tablet by ity of (ARMOUR 00:00: mouth [place] THYROID) 90 00 daily Medical mg tablet before Branch breakfast. Thyroid, 2021-11 Yes [id number] 90mg Take 1 [facility] [place], 2-21 tablet by ity of (ARMOUR 00:00: mouth [place] THYROID) 90 00 daily Medical mg tablet before Branch breakfast. Thyroid, 2021-11 Yes [id number] 90mg Take 1 [facility] [place], 2-21 tablet by ity of (ARMOUR 00:00: mouth [place] THYROID) 90 00 daily Medical mg tablet before Branch breakfast. Thyroid, 2021-11- No [id number] 90mg Take 1 [facility] [place], 2-21 06-02 tablet by ity of (ARMOUR 00:00: 00:00 mouth [place] THYROID) 90 00 :00 daily Medical mg tablet before Branch breakfast. losartan 2021- Yes [id number] 100mg Take 1 [facility] 100 mg 2-14 tablet by ity of tablet 00:00: mouth [place] 00 every Medical morning. Branch losartan 2021-11 Yes [id number] 100mg Take 1 [facility] 100 mg 2-14 tablet by ity of tablet 00:00: mouth [place] 00 every Medical morning. Branch losartan 2021-11 Yes [id number] 100mg Take 1 [facility] 100 mg 2-14 tablet by ity of tablet 00:00: mouth [place] 00 every Medical morning. Branch losartan 2021-11 Yes [id number] 100mg Take 1 [facility] 100 mg 2-14 tablet by ity of tablet 00:00: mouth [place] 00 every Medical morning. Branch losartan 2021-11 Yes [id number] 100mg Take 1 [facility] 100 mg 2-14 tablet by ity of tablet 00:00: mouth [place] 00 every Medical morning. Branch losartan 2021-11 Yes [id number] 100mg Take 1 [facility] 100 mg 2-14 tablet by ity of tablet 00:00: mouth [place] 00 every Medical morning. Branch losartan 2021-11 Yes [id number] 100mg Take 1 [facility] 100 mg 2-14 tablet by ity of tablet 00:00: mouth [place] 00 every Medical morning. Branch losartan 2021-11 Yes [id number] 100mg Take 1 [facility] 100 mg 2-14 tablet by ity of tablet 00:00: mouth [place] 00 every Medical morning. Branch losartan 2021-11 Yes [id number] 100mg Take 1 [facility] 100 mg 2-14 tablet by ity of tablet 00:00: mouth [place] 00 every Medical morning. Branch losartan 2021-11 Yes [id number] 100mg Take 1 [facility] 100 mg 2-14 tablet by ity of tablet 00:00: mouth [place] 00 every Medical morning. Branch losartan 2021-11 Yes [id number] 100mg Take 1 [facility] 100 mg 2-14 tablet by ity of tablet 00:00: mouth [place] 00 every Medical morning. Branch losartan 2021-11 Yes [id number] 100mg Take 1 [facility] 100 mg 2-14 tablet by ity of tablet 00:00: mouth [place] 00 every Medical morning. Branch losartan 2021-11 Yes [id number] 100mg Take 1 [facility] 100 mg 2-14 tablet by ity of tablet 00:00: mouth [place] 00 every Medical morning. Branch losartan 2021-11 Yes [id number] 100mg Take 1 [facility] 100 mg 2-14 tablet by ity of tablet 00:00: mouth [place] 00 every Medical morning. Branch losartan 2021-11 Yes [id number] 100mg Take 1 [facility] 100 mg 2-14 tablet by ity of tablet 00:00: mouth [place] 00 every Medical morning. Branch losartan 2021-11 Yes [id number] 100mg Take 1 [facility] 100 mg 2-14 tablet by ity of tablet 00:00: mouth [place] 00 every Medical morning. Branch losartan 2021-11 Yes [id number] 100mg Take 1 [facility] 100 mg 2-14 tablet by ity of tablet 00:00: mouth [place] 00 every Medical morning. Branch losartan 2021-11 Yes [id number] 100mg Take 1 [facility] 100 mg 2-14 tablet by ity of tablet 00:00: mouth [place] 00 every Medical morning. Branch losartan 2021-11 Yes [id number] 100mg Take 1 [facility] 100 mg 2-14 tablet by ity of tablet 00:00: mouth [place] 00 every Medical morning. Branch losartan 2021-11 Yes [id number] 100mg Take 1 [facility] 100 mg 2-14 tablet by ity of tablet 00:00: mouth [place] 00 every Medical morning. Branch losartan 2021-11 Yes [id number] 100mg Take 1 [facility] 100 mg 2-14 tablet by ity of tablet 00:00: mouth [place] 00 every Medical morning. Branch losartan 2021-11 Yes [id number] 100mg Take 1 [facility] 100 mg 2-14 tablet by ity of tablet 00:00: mouth [place] 00 every Medical morning. Branch losartan 2021-11 Yes [id number] 100mg Take 1 [facility] 100 mg 2-14 tablet by ity of tablet 00:00: mouth [place] 00 every Medical morning. Branch losartan 2021-11 Yes [id number] 100mg Take 1 [facility] 100 mg 2-14 tablet by ity of tablet 00:00: mouth [place] 00 every Medical morning. Branch losartan 2021-11 Yes [id number] 100mg Take 1 [facility] 100 mg 2-14 tablet by ity of tablet 00:00: mouth [place] 00 every Medical morning. Branch losartan 2021-11 Yes [id number] 100mg Take 1 [facility] 100 mg 2-14 tablet by ity of tablet 00:00: mouth [place] 00 every Medical morning. Branch losartan 2021-11 Yes [id number] 100mg Take 1 [facility] 100 mg 2-14 tablet by ity of tablet 00:00: mouth [place] 00 every Medical morning. Branch losartan 2021-11 Yes [id number] 100mg Take 1 [facility] 100 mg 2-14 tablet by ity of tablet 00:00: mouth [place] 00 every Medical morning. Branch losartan 2021-11 Yes [id number] 100mg Take 1 [facility] 100 mg 2-14 tablet by ity of tablet 00:00: mouth [place] 00 every Medical morning. Branch losartan 2021-11 Yes [id number] 100mg Take 1 [facility] 100 mg 2-14 tablet by ity of tablet 00:00: mouth [place] 00 every Medical morning. Branch losartan 2021-11 Yes [id number] 100mg Take 1 [facility] 100 mg 2-14 tablet by ity of tablet 00:00: mouth [place] 00 every Medical morning. Branch losartan 2021-11 Yes [id number] 100mg Take 1 [facility] 100 mg 2-14 tablet by ity of tablet 00:00: mouth [place] 00 every Medical morning. Branch losartan 2021-11 Yes [id number] 100mg Take 1 [facility] 100 mg 2-14 tablet by [facility] tablet 00:00: mouth [place] 00 every Medical morning. Branch losartan 2021-11 Yes [id number] 100mg Take 1 [facility] 100 mg 2-14 tablet by [facility] tablet 00:00: mouth [place] 00 every Medical morning. Branch losartan 2021-11 Yes [id number] 100mg Take 1 [facility] 100 mg 2-14 tablet by [facility] tablet 00:00: mouth [place] 00 every Medical morning. Branch losartan 2021-11 Yes [id number] 100mg Take 1 [facility] 100 mg 2-14 tablet by [facility] tablet 00:00: mouth [place] 00 every Medical morning. Branch losartan 2021-11 Yes [id number] 100mg Take 1 [facility] 100 mg 2-14 tablet by [facility] tablet 00:00: mouth [place] 00 every Medical morning. Branch losartan 2021-11 Yes [id number] 100mg Take 1 [facility] 100 mg 2-14 tablet by [facility] tablet 00:00: mouth [place] 00 every Medical morning. Branch losartan 2021-11 Yes [id number] 100mg Take 1 [facility] 100 mg 2-14 tablet by [facility] tablet 00:00: mouth [place] 00 every Medical morning. Branch losartan 2021-11 Yes [id number] 100mg Take 1 [facility] 100 mg 2-14 tablet by [facility] tablet 00:00: mouth [place] 00 every Medical morning. Branch losartan 2021-113- No [id number] 100mg Take 1 [facility] 100 mg 2-14 03-20 tablet by [facility] tablet 00:00: 00:00 mouth [place] 00 :00 every Medical morning. Branch atorvastati 2021-11 Yes 80mg Take 1 [facility] n 80 mg 1-16 tablet by [facility] tablet 00:00: mouth at [place] 00 bedtime. Medical Indication Branch s: CAD atorvastati 2021-11 Yes 80mg Take 1 [facility] n 80 mg 1-16 tablet by [facility] of tablet 00:00: mouth at [place] [address] bedtime. Medical Indication Branch s: CAD atorvastati 2021-11 Yes 80mg Take 1 [facility] n 80 mg 1-16 tablet by [facility] of tablet 00:00: mouth at [place] [address] bedtime. Medical Indication Branch s: CAD atorvastati 2021-11 Yes 80mg Take 1 [facility] n 80 mg 1-16 tablet by [facility] tablet 00:00: mouth at [place] 00 bedtime. Medical Indication Branch s: CAD atorvastati 2021-11 Yes 80mg Take 1 [facility] n 80 mg 1-16 tablet by [facility] tablet 00:00: mouth at [place] [address] bedtime. Medical Indication Branch s: CAD atorvastati 2021-11 Yes 80mg Take 1 [facility] n 80 mg 1-16 tablet by [facility] of tablet 00:00: mouth at [place] [address] bedtime. Medical Indication Branch s: CAD atorvastati 2021-11 Yes 80mg Take 1 [facility] n 80 mg 1-16 tablet by [facility] tablet 00:00: mouth at [place] 00 bedtime. Medical Indication Branch s: CAD atorvastati 2021-11 Yes 80mg Take 1 [facility] n 80 mg 1-16 tablet by [facility] of tablet 00:00: mouth at [place] [address] bedtime. Medical Indication Branch s: CAD atorvastati 2021-11 Yes 80mg Take 1 [facility] n 80 mg 1-16 tablet by [facility] of tablet 00:00: mouth at [place] [address] bedtime. Medical Indication Branch s: CAD atorvastati 2021- Yes 80mg Take 1 [facility] n 80 mg 1-16 tablet by [facility] of tablet 00:00: mouth at [place] 00 bedtime. Medical Indication Branch s: CAD atorvastati 2021- Yes 80mg Take 1 [facility] n 80 mg 1-16 tablet by [facility] tablet 00:00: mouth at [place] 00 bedtime. Medical Indication Branch s: CAD atorvastati 2021- Yes 80mg Take 1 [facility] n 80 mg 1-16 tablet by [facility] tablet 00:00: mouth at [place] 00 bedtime. Medical Indication Branch s: CAD atorvastati 2021-11 Yes 80mg Take 1 [facility] n 80 mg 1-16 tablet by [facility] of tablet 00:00: mouth at [place] [address] bedtime. Medical Indication Branch s: CAD atorvastati 2021-11 Yes 80mg Take 1 [facility] n 80 mg 1-16 tablet by [facility] of tablet 00:00: mouth at [place] [address] bedtime. Medical Indication Branch s: CAD atorvastati 2021- Yes 80mg Take 1 [facility] n 80 mg 1-16 tablet by [facility] of tablet 00:00: mouth at [place] [address] bedtime. Medical Indication Branch s: CAD atorvastati 2021- Yes 80mg Take 1 [facility] n 80 mg 1-16 tablet by [facility] of tablet 00:00: mouth at [place] [address] bedtime. Medical Indication Branch s: CAD atorvastati 2021- Yes 80mg Take 1 [facility] n 80 mg 1-16 tablet by [facility] of tablet 00:00: mouth at [place] [address] bedtime. Medical Indication Branch s: CAD atorvastati 2021- Yes 80mg Take 1 [facility] n 80 mg 1-16 tablet by [facility] of tablet 00:00: mouth at [place] [address] bedtime. Medical Indication Branch s: CAD atorvastati 2021- Yes 80mg Take 1 [facility] n 80 mg 1-16 tablet by [facility] of tablet 00:00: mouth at [place] [address] bedtime. Medical Indication Branch s: CAD atorvastati 2021- Yes 80mg Take 1 [facility] n 80 mg 1-16 tablet by [facility] tablet 00:00: mouth at [place] [address] bedtime. Medical Indication Branch s: CAD atorvastati 2021-11 Yes 80mg Take 1 [facility] n 80 mg 1-16 tablet by [facility] of tablet 00:00: mouth at [place] 00 bedtime. Medical Indication Branch s: CAD atorvastati 2021-11 Yes 80mg Take 1 [facility] n 80 mg 1-16 tablet by [facility] tablet 00:00: mouth at [place] 00 bedtime. Medical Indication Branch s: CAD atorvastati 2021-11 Yes 80mg Take 1 [facility] n 80 mg 1-16 tablet by [facility] of tablet 00:00: mouth at [place] 00 bedtime. Medical Indication Branch s: CAD atorvastati 2021-11 Yes 80mg Take 1 [facility] n 80 mg 1-16 tablet by [facility] of tablet 00:00: mouth at [place] 00 bedtime. Medical Indication Branch s: CAD atorvastati 2021-11 Yes 80mg Take 1 [facility] n 80 mg 1-16 tablet by [facility] of tablet 00:00: mouth at [place] [address] bedtime. Medical Indication Branch s: CAD atorvastati 2021-11 Yes 80mg Take 1 [facility] n 80 mg 1-16 tablet by [facility] of tablet 00:00: mouth at [place] [address] bedtime. Medical Indication Branch s: CAD atorvastati 2021-11 Yes 80mg Take 1 [facility] n 80 mg 1-16 tablet by [facility] of tablet 00:00: mouth at [place] [address] bedtime. Medical Indication Branch s: CAD atorvastati 2021-11 Yes 80mg Take 1 [facility] n 80 mg 1-16 tablet by [facility] of tablet 00:00: mouth at [place] [address] bedtime. Medical Indication Branch s: CAD atorvastati 2021- Yes 80mg Take 1 [facility] n 80 mg 1-16 tablet by [facility] of tablet 00:00: mouth at [place] [address] bedtime. Medical Indication Branch s: CAD atorvastati 2021-11 Yes 80mg Take 1 [facility] n 80 mg 1-16 tablet by [facility] of tablet 00:00: mouth at [place] [address] bedtime. Medical Indication Branch s: CAD atorvastati 2021-11 Yes 80mg Take 1 [facility] n 80 mg 1-16 tablet by [facility] of tablet 00:00: mouth at [place] [address] bedtime. Medical Indication Branch s: CAD atorvastati 2021- Yes 80mg Take 1 [facility] n 80 mg 1-16 tablet by [facility] of tablet 00:00: mouth at [place] [address] bedtime. Medical Indication Branch s: CAD atorvastati 2021- Yes 80mg Take 1 [facility] n 80 mg 1-16 tablet by [facility] of tablet 00:00: mouth at [place] [address] bedtime. Medical Indication Branch s: CAD atorvastati 2021-11 Yes 80mg Take 1 [facility] n 80 mg 1-16 tablet by [facility] of tablet 00:00: mouth at [place] [address] bedtime. Medical Indication Branch s: CAD atorvastati 2021- Yes 80mg Take 1 [facility] n 80 mg 1-16 tablet by [facility] of tablet 00:00: mouth at [place] [address] bedtime. Medical Indication Branch s: CAD atorvastati 2021- Yes 80mg Take 1 [facility] n 80 mg 1-16 tablet by [facility] of tablet 00:00: mouth at [place] [address] bedtime. Medical Indication Branch s: CAD atorvastati 2021- Yes 80mg Take 1 [facility] n 80 mg 1-16 tablet by [facility] of tablet 00:00: mouth at [place] [address] bedtime. Medical Indication Branch s: CAD atorvastati 2021-11 Yes 80mg Take 1 [facility] n 80 mg 1-16 tablet by [facility] of tablet 00:00: mouth at [place] [address] bedtime. Medical Indication Branch s: CAD atorvastati 2021- Yes 80mg Take 1 [facility] 80 mg 1-16 tablet by [facility] of tablet 00:00: mouth at [place] [address] bedtime. Medical Indication Branch s: CAD atorvastati 2021- Yes 80mg Take 1 [facility] 80 mg 1-16 tablet by [facility] of tablet 00:00: mouth at [place] [address] bedtime. Medical Indication Branch s: CAD atorvastati 2021- Yes 80mg Take 1 [facility] n 80 mg 1-16 tablet by [facility] of tablet 00:00: mouth at [place] [address] bedtime. Medical Indication Branch s: CAD atorvastati 2021- Yes 80mg Take 1 [facility] n 80 mg 1-16 tablet by [facility] of tablet 00:00: mouth at [place] [address] bedtime. Medical Indication Branch s: CAD atorvastati 2021- Yes 80mg Take 1 [facility] n 80 mg 1-16 tablet by [facility] of tablet 00:00: mouth at [place] 00 bedtime. Medical Indication Branch s: CAD atorvastati 2021-11 Yes 80mg Take 1 [facility] n 80 mg 1-16 tablet by [facility] of tablet 00:00: mouth at [place] [address] bedtime. Medical Indication Branch s: CAD atorvastati 2021-11 Yes 80mg Take 1 [facility] 80 mg 1-16 tablet by [facility] of tablet 00:00: mouth at [place] [address] bedtime. Medical Indication Branch s: CAD atorvastati 2021-11 Yes 80mg Take 1 [facility] 80 mg 1-16 tablet by [facility] of tablet 00:00: mouth at [place] [address] bedtime. Medical Indication Branch s: CAD atorvastati 2021-11 Yes 80mg Take 1 [facility] n 80 mg 1-16 tablet by [facility] of tablet 00:00: mouth at [place] [address] bedtime. Medical Indication Branch s: CAD atorvastati 2021-11 Yes 80mg Take 1 [facility] n 80 mg 1-16 tablet by [facility] of tablet 00:00: mouth at [place] [address] bedtime. Medical Indication Branch s: CAD atorvastati 2021-11 Yes 80mg Take 1 [facility] n 80 mg 1-16 tablet by [facility] of tablet 00:00: mouth at [place] [address] bedtime. Medical Indication Branch s: CAD atorvastati 2021-11 Yes 80mg Take 1 [facility] 80 mg 1-16 tablet by [facility] of tablet 00:00: mouth at [place] [address] bedtime. Medical Indication Branch s: CAD atorvastati 2021-11 Yes 80mg Take 1 [facility] n 80 mg 1-16 tablet by [facility] of tablet 00:00: mouth at [place] [address] bedtime. Medical Indication Branch s: CAD atorvastati 2021- Yes 80mg Take 1 [facility] n 80 mg 1-16 tablet by [facility] of tablet 00:00: mouth at [place] [address] bedtime. Medical Indication Branch s: CAD atorvastati 2021- Yes 80mg Take 1 [facility] 80 mg 1-16 tablet by [facility] of tablet 00:00: mouth at [place] [address] bedtime. Medical Indication Branch s: CAD atorvastati 2021-11 Yes 80mg Take 1 [facility] 80 mg 1-16 tablet by [facility] of tablet 00:00: mouth at [place] [address] bedtime. Medical Indication Branch s: CAD atorvastati 2021-11 Yes 80mg Take 1 [facility] 80 mg 1-16 tablet by [facility] of tablet 00:00: mouth at [place] [address] bedtime. Medical Indication Branch s: CAD atorvastati 2021-11 Yes 80mg Take 1 [facility] n 80 mg 1-16 tablet by [facility] of tablet 00:00: mouth at [place] [address] bedtime. Medical Indication Branch s: CAD atorvastati 2021-11 Yes 80mg Take 1 [facility] n 80 mg 1-16 tablet by [facility] of tablet 00:00: mouth at [place] 00 bedtime. Medical Indication Branch s: CAD atorvastati 2021-11 Yes 80mg Take 1 [facility] n 80 mg 1-16 tablet by [facility] of tablet 00:00: mouth at [place] [address] bedtime. Medical Indication Branch s: CAD atorvastati 2021-11 Yes 80mg Take 1 [facility] n 80 mg 1-16 tablet by [facility] of tablet 00:00: mouth at [place] [address] bedtime. Medical Indication Branch s: CAD atorvastati 2021-11 Yes 80mg Take 1 [facility] n 80 mg 1-16 tablet by [facility] of tablet 00:00: mouth at [place] [address] bedtime. Medical Indication Branch s: CAD atorvastati 2021-11- No 80mg Take 1 [facility] vers n 80 mg 1-16 05-13 tablet by [facility] of tablet 00:00: 00:00 mouth at [place] 00 :00 bedtime. Medical Indication Branch s: CAD atorvastati 2021-11- No 80mg Take 1 [facility] vers n 80 mg 1-16 05-13 tablet by [facility] of tablet 00:00: 00:00 mouth at [place] 00 :00 bedtime. Medical Indication Branch s: CAD lidocaine 2021-11 Yes [id number] 1{patch Apply 1 [facility] % (700 12-02 2 } Patch to ity of mg/patch) 00:00: area(s) in [place] patch 00 the Medical morning. Branch lidocaine 5 2021-11 Yes [id number] 1{patch Apply 1 [facility] % (700 12-02 2 } Patch to [facility] of mg/patch) 00:00: area(s) in [place] patch 00 the Medical morning. Branch lidocaine 2021-11 Yes [id number] 1{patch Apply 1 [facility] % (700 1-09 2 } Patch to [facility]y of mg/patch) 00:00: area(s) in [place] patch 00 the Medical morning. Branch lidocaine 2021-11 Yes [id number] 1{patch Apply 1 [facility] % (700 1-09 2 } Patch to [facility] of mg/patch) 00:00: area(s) in [place] patch 00 the Medical morning. Branch lidocaine 2021-11 Yes [id number] 1{patch Apply 1 [facility] % (700 1-09 2 } Patch to [facility] of mg/patch) 00:00: area(s) in [place] patch 00 the Medical morning. Branch lidocaine 2021-11 Yes [id number] 1{patch Apply 1 [facility] % (700 1-09 2 } Patch to [facility] of mg/patch) 00:00: area(s) in [place] patch 00 the Medical morning. Branch lidocaine 2021-11 Yes [id number] 1{patch Apply 1 [facility] % (700 1-09 2 } Patch to [facility] of mg/patch) 00:00: area(s) in [place] patch 00 the Medical morning. Branch lidocaine 2021-11 Yes [id number] 1{patch Apply 1 [facility] % (700 1-09 2 } Patch to it[facility] of mg/patch) 00:00: area(s) in [place] patch 00 the Medical morning. Branch lidocaine 2021-11 Yes [id number] 1{patch Apply 1 [facility] % (700 1-09 2 } Patch to [facility] of mg/patch) 00:00: area(s) in [place] patch 00 the Medical morning. Branch lidocaine 2021-11 Yes [id number] 1{patch Apply 1 [facility] % (700 1-09 2 } Patch to [facility] of mg/patch) 00:00: area(s) in [place] patch 00 the Medical morning. Branch lidocaine 2021-11 Yes [id number] 1{patch Apply 1 [facility] % (700 1-09 2 } Patch to [facility] of mg/patch) 00:00: area(s) in [place] patch 00 the Medical morning. Branch lidocaine 2021-11 Yes [id number] 1{patch Apply 1 [facility] % (700 1-09 2 } Patch to it[facility] of mg/patch) 00:00: area(s) in [place] patch 00 the Medical morning. Branch lidocaine 2021-11 Yes [id number] 1{patch Apply 1 [facility] % (700 1-09 2 } Patch to [facility] of mg/patch) 00:00: area(s) in [place] patch 00 the Medical morning. Branch lidocaine 2021-11 Yes [id number] 1{patch Apply 1 [facility] % (700 1-09 2 } Patch to [facility] of mg/patch) 00:00: area(s) in [place] patch 00 the Medical morning. Branch lidocaine 2021-11 Yes [id number] 1{patch Apply 1 [facility] % (700 1-09 2 } Patch to [facility]y of mg/patch) 00:00: area(s) in [place] patch 00 the Medical morning. Branch lidocaine 2021-11 Yes [id number] 1{patch Apply 1 [facility] % (700 1-09 2 } Patch to [facility] of mg/patch) 00:00: area(s) in [place] patch 00 the Medical morning. Branch lidocaine 2021-11 Yes [id number] 1{patch Apply 1 [facility] % (700 1-09 2 } Patch to ity of mg/patch) 00:00: area(s) in [place] patch 00 the Medical morning. Branch lidocaine 2021-11 Yes [id number] 1{patch Apply 1 [facility] % (700 1-09 2 } Patch to it[facility] of mg/patch) 00:00: area(s) in [place] patch 00 the Medical morning. Branch lidocaine 2021-11 Yes [id number] 1{patch Apply 1 [facility] % (700 1-09 2 } Patch to [facility] of mg/patch) 00:00: area(s) in [place] patch 00 the Medical morning. Branch lidocaine 2021-11 Yes [id number] 1{patch Apply 1 [facility] % (700 1-09 2 } Patch to [facility] of mg/patch) 00:00: area(s) in [place] patch 00 the Medical morning. Branch lidocaine 2021-11 Yes [id number] 1{patch Apply 1 [facility] % (700 1-09 2 } Patch to it[facility] of mg/patch) 00:00: area(s) in [place] patch 00 the Medical morning. Branch lidocaine 2021-11 Yes [id number] 1{patch Apply 1 [facility] % (700 1-09 2 } Patch to ity of mg/patch) 00:00: area(s) in [place] patch 00 the Medical morning. Branch lidocaine 2021-11 Yes [id number] 1{patch Apply 1 [facility] % (700 1-09 2 } Patch to it[facility] of mg/patch) 00:00: area(s) in [place] patch 00 the Medical morning. Branch lidocaine 2021-11 Yes [id number] 1{patch Apply 1 [facility] % (700 1-09 2 } Patch to ity of mg/patch) 00:00: area(s) in [place] patch 00 the Medical morning. Branch lidocaine 2021-11 Yes [id number] 1{patch Apply 1 [facility] % (700 1-09 2 } Patch to it[facility] of mg/patch) 00:00: area(s) in [place] patch 00 the Medical morning. Branch lidocaine 2021-11 Yes [id number] 1{patch Apply 1 [facility] % (700 1-09 2 } Patch to [facility] of mg/patch) 00:00: area(s) in [place] patch 00 the Medical morning. Branch lidocaine 2021-11 Yes [id number] 1{patch Apply 1 [facility] % (700 1-09 2 } Patch to it[facility] of mg/patch) 00:00: area(s) in [place] patch 00 the Medical morning. Branch lidocaine 2021-11 Yes [id number] 1{patch Apply 1 [facility] % (700 1-09 2 } Patch to it[facility] of mg/patch) 00:00: area(s) in [place] patch 00 the Medical morning. Branch lidocaine 2021-11 Yes [id number] 1{patch Apply 1 [facility] % (700 1-09 2 } Patch to [facility] of mg/patch) 00:00: area(s) in [place] patch 00 the Medical morning. Branch lidocaine 2021-11 Yes [id number] 1{patch Apply 1 [facility] % (700 1-09 2 } Patch to [facility] of mg/patch) 00:00: area(s) in [place] patch 00 the Medical morning. Branch lidocaine 2021-11 Yes [id number] 1{patch Apply 1 [facility] % (700 1-09 2 } Patch to ity of mg/patch) 00:00: area(s) in [place] patch 00 the Medical morning. Branch lidocaine 2021-11 Yes [id number] 1{patch Apply 1 [facility] % (700 1-09 2 } Patch to ity of mg/patch) 00:00: area(s) in [place] patch 00 the Medical morning. Branch lidocaine 2021-11 Yes [id number] 1{patch Apply 1 [facility] % (700 1-09 2 } Patch to ity of mg/patch) 00:00: area(s) in [place] patch 00 the Medical morning. Branch lidocaine 2021-11 Yes [id number] 1{patch Apply 1 [facility] % (700 1-09 2 } Patch to it[facility] of mg/patch) 00:00: area(s) in [place] patch 00 the Medical morning. Branch lidocaine 2021-11 Yes [id number] 1{patch Apply 1 [facility] % (700 1-09 2 } Patch to ity of mg/patch) 00:00: area(s) in [place] patch 00 the Medical morning. Branch lidocaine 2021-11 Yes [id number] 1{patch Apply 1 [facility] % (700 1-09 2 } Patch to ity of mg/patch) 00:00: area(s) in [place] patch 00 the Medical morning. Branch lidocaine 2021-11 Yes [id number] 1{patch Apply 1 [facility] % (700 1-09 2 } Patch to ity of mg/patch) 00:00: area(s) in [place] patch 00 the Medical morning. Branch lidocaine 2021-11 Yes [id number] 1{patch Apply 1 [facility] % (700 1-09 2 } Patch to ity of mg/patch) 00:00: area(s) in [place] patch 00 the Medical morning. Branch lidocaine 2021-11 Yes [id number] 1{patch Apply 1 [facility] % (700 1-09 2 } Patch to it[facility] of mg/patch) 00:00: area(s) in [place] patch 00 the Medical morning. Branch lidocaine 2021-11 Yes [id number] 1{patch Apply 1 [facility] % (700 1-09 2 } Patch to ity of mg/patch) 00:00: area(s) in [place] patch 00 the Medical morning. Branch lidocaine 2021-11 Yes [id number] 1{patch Apply 1 [facility] % (700 1-09 2 } Patch to ity of mg/patch) 00:00: area(s) in [place] patch 00 the Medical morning. Branch lidocaine 2021-11 Yes [id number] 1{patch Apply 1 [facility] % (700 1-09 2 } Patch to it[facility] of mg/patch) 00:00: area(s) in [place] patch 00 the Medical morning. Branch lidocaine 2021-11 Yes [id number] 1{patch Apply 1 [facility] % (700 1-09 2 } Patch to ity of mg/patch) 00:00: area(s) in [place] patch 00 the Medical morning. Branch lidocaine 2021-11 Yes [id number] 1{patch Apply 1 [facility] % (700 1-09 2 } Patch to it[facility] of mg/patch) 00:00: area(s) in [place] patch 00 the Medical morning. Branch lidocaine 2021-11 Yes [id number] 1{patch Apply 1 [facility] % (700 1-09 2 } Patch to ity of mg/patch) 00:00: area(s) in [place] patch 00 the Medical morning. Branch lidocaine 2021-11 Yes [id number] 1{patch Apply 1 [facility] % (700 1-09 2 } Patch to [facility] of mg/patch) 00:00: area(s) in [place] patch 00 the Medical morning. Branch lidocaine 2021-11 Yes [id number] 1{patch Apply 1 [facility] % (700 1-09 2 } Patch to ity of mg/patch) 00:00: area(s) in [place] patch 00 the Medical morning. Branch lidocaine 2021-11 Yes [id number] 1{patch Apply 1 [facility] % (700 1-09 2 } Patch to [facility] of mg/patch) 00:00: area(s) in [place] patch 00 the Medical morning. Branch lidocaine 2021-11 Yes [id number] 1{patch Apply 1 [facility] % (700 1-09 2 } Patch to [facility] of mg/patch) 00:00: area(s) in [place] patch 00 the Medical morning. Branch lidocaine 2021-11 Yes [id number] 1{patch Apply 1 [facility] % (700 1-09 2 } Patch to ity of mg/patch) 00:00: area(s) in [place] patch 00 the Medical morning. Branch lidocaine 2021-11 Yes [id number] 1{patch Apply 1 [facility] % (700 1-09 2 } Patch to ity of mg/patch) 00:00: area(s) in [place] patch 00 the Medical morning. Branch lidocaine 2021-11 Yes [id number] 1{patch Apply 1 [facility] % (700 1-09 2 } Patch to ity of mg/patch) 00:00: area(s) in [place] patch 00 the Medical morning. Branch lidocaine 2021-11 Yes [id number] 1{patch Apply 1 [facility] % (700 1-09 2 } Patch to ity of mg/patch) 00:00: area(s) in [place] patch 00 the Medical morning. Branch lidocaine 2021-11 Yes [id number] 1{patch Apply 1 [facility] % (700 1-09 2 } Patch to ity of mg/patch) 00:00: area(s) in [place] patch 00 the Medical morning. Branch lidocaine 2021-11 Yes [id number] 1{patch Apply 1 [facility] % (700 1-09 2 } Patch to ity of mg/patch) 00:00: area(s) in [place] patch 00 the Medical morning. Branch lidocaine 2021-11 Yes [id number] 1{patch Apply 1 [facility] % (700 1-09 2 } Patch to ity of mg/patch) 00:00: area(s) in [place] patch 00 the Medical morning. Branch lidocaine 2021-11 Yes [id number] 1{patch Apply 1 [facility] % (700 1-09 2 } Patch to ity of mg/patch) 00:00: area(s) in [place] patch 00 the Medical morning. Branch lidocaine 2021-11 Yes [id number] 1{patch Apply 1 [facility] % (700 1-09 2 } Patch to ity of mg/patch) 00:00: area(s) in [place] patch 00 the Medical morning. Branch lidocaine 2021-11 Yes [id number] 1{patch Apply 1 [facility] % (700 1-09 2 } Patch to ity of mg/patch) 00:00: area(s) in [place] patch 00 the Medical morning. Branch lidocaine 2021-11- No [id number] 1{patch Apply 1 [facility] % (700 12-02 2 } Patch to ity of mg/patch) 00:00: 00:00 area(s) in [place] patch 00 :00 the Medical morning. Branch lidocaine 5 2021-11- No [id number] 1{patch Apply 1 [facility] % (700 12-02 2 } Patch to ity of mg/patch) 00:00: 00:00 area(s) in [place] patch 00 :00 the Medical morning. Branch levothyroxi 2021-11 Yes 50ug Take 1 [facility] ers ne 50 mcg 1-07 tablet by ity o f tablet 00:00: mouth [place] 00 every Medical morning. Branch isosorbide 2021-11 Yes 30mg Take 1 [facility] rs mononitrate 1-07 tablet by ity of 30 mg 24 hr 00:00: mouth in [place] tablet 00 the Medical morning. Branch Indication s: CAD isosorbide 2021-11 Yes 30mg Take 1 [facility] rs mononitrate 1-07 tablet by ity of 30 mg 24 hr 00:00: mouth in [place] tablet 00 the Medical morning. Branch Indication s: CAD levothyroxi 2021-11 Yes 50ug Take 1 [facility] ers ne 50 mcg 1-07 tablet by ity o f tablet 00:00: mouth [place] 00 every Medical morning. Branch isosorbide 2021-11 Yes 30mg Take 1 [facility] rs mononitrate 1-07 tablet by ity of 30 mg 24 hr 00:00: mouth in [place] tablet 00 the Medical morning. Branch Indication s: CAD levothyroxi 2021- Yes 50ug Take 1 [facility] ers ne 50 mcg 1-07 tablet by ity o f tablet 00:00: mouth [place] 00 every Medical morning. Branch isosorbide 2021-11 Yes 30mg Take 1 [facility] rs mononitrate 1-07 tablet by ity of 30 mg 24 hr 00:00: mouth in [place] tablet 00 the Medical morning. Branch Indication s: CAD levothyroxi 2021-11 Yes 50ug Take 1 [facility] ers ne 50 mcg 1-07 tablet by ity o f tablet 00:00: mouth [place] 00 every Medical morning. Branch isosorbide 2021- Yes 30mg Take 1 [facility] rs mononitrate 1-07 tablet by ity of 30 mg 24 hr 00:00: mouth in [place] tablet 00 the Medical morning. Branch Indication s: CAD levothyroxi 2021- Yes 50ug Take 1 [facility] ers ne 50 mcg 1-07 tablet by ity o f tablet 00:00: mouth [place] 00 every Medical morning. Branch isosorbide 2021- Yes 30mg Take 1 [facility] rs mononitrate 1-07 tablet by ity of 30 mg 24 hr 00:00: mouth in [place] tablet 00 the Medical morning. Branch Indication s: CAD levothyroxi 2021- Yes 50ug Take 1 [facility] ers ne 50 mcg 1-07 tablet by ity o f tablet 00:00: mouth [place] 00 every Medical morning. Branch isosorbide 2021- Yes 30mg Take 1 [facility] rs mononitrate 1-07 tablet by ity of 30 mg 24 hr 00:00: mouth in [place] tablet 00 the Medical morning. Branch Indication s: CAD levothyroxi 2021- Yes 50ug Take 1 [facility] ers ne 50 mcg 1-07 tablet by ity o f tablet 00:00: mouth [place] 00 every Medical morning. Branch isosorbide 2021- Yes 30mg Take 1 [facility] rs mononitrate 1-07 tablet by [facility]y of 30 mg 24 hr 00:00: mouth in [place] tablet 00 the Medical morning. Branch Indication s: CAD levothyroxi 2021- Yes 50ug Take 1 [facility] ers ne 50 mcg 1-07 tablet by ity o f tablet 00:00: mouth [place] 00 every Medical morning. Branch isosorbide 2021- Yes 30mg Take 1 [facility] rs mononitrate 1-07 tablet by [facility]y of 30 mg 24 hr 00:00: mouth in [place] tablet 00 the Medical morning. Branch Indication s: CAD levothyroxi 2021- Yes 50ug Take 1 [facility] ne 50 mcg 1-07 tablet by ity o f tablet 00:00: mouth [place] 00 every Medical morning. Branch isosorbide 2021- Yes 30mg Take 1 [facility] rs mononitrate 1-07 tablet by ity of 30 mg 24 hr 00:00: mouth in [place] tablet 00 the Medical morning. Branch Indication s: CAD levothyroxi 2021-11 Yes 50ug Take 1 [facility] ne 50 mcg 1-07 tablet by ity o f tablet 00:00: mouth [place] 00 every Medical morning. Branch isosorbide 2021- Yes 30mg Take 1 [facility] mononitrate 1-07 tablet by [facility] of 30 mg 24 hr 00:00: mouth in [place] tablet 00 the Medical morning. Branch Indication s: CAD levothyroxi 2021-11 Yes 50ug Take 1 [facility] ne 50 mcg 1-07 tablet by [facility] o f tablet 00:00: mouth [place] 00 every Medical morning. Branch isosorbide 2021-11 Yes 30mg Take 1 [facility] mononitrate 1-07 tablet by [facility] of 30 mg 24 hr 00:00: mouth in [place] tablet 00 the Medical morning. Branch Indication s: CAD levothyroxi 2021-11 Yes 50ug Take 1 [facility] ne 50 mcg 1-07 tablet by [facility] o f tablet 00:00: mouth [place] 00 every Medical morning. Branch isosorbide 2021- Yes 30mg Take 1 [facility] mononitrate 1-07 tablet by [facility] of 30 mg 24 hr 00:00: mouth in [place] tablet 00 the Medical morning. Branch Indication s: CAD levothyroxi 2021- Yes 50ug Take 1 [facility] ne 50 mcg 1-07 tablet by [facility] o f tablet 00:00: mouth [place] 00 every Medical morning. Branch isosorbide 2021- Yes 30mg Take 1 [facility] mononitrate 1-07 tablet by [facility] of 30 mg 24 hr 00:00: mouth in [place] tablet 00 the Medical morning. Branch Indication s: CAD levothyroxi 2021- Yes 50ug Take 1 [facility] ne 50 mcg 1-07 tablet by [facility] o f tablet 00:00: mouth [place] 00 every Medical morning. Branch isosorbide 2021- Yes 30mg Take 1 [facility] mononitrate 1-07 tablet by [facility] of 30 mg 24 hr 00:00: mouth in [place] tablet 00 the Medical morning. Branch Indication s: CAD levothyroxi 2021- Yes 50ug Take 1 [facility] ne 50 mcg 1-07 tablet by [facility] o f tablet 00:00: mouth [place] 00 every Medical morning. Branch isosorbide 2021- Yes 30mg Take 1 [facility] mononitrate 1-07 tablet by [facility] of 30 mg 24 hr 00:00: mouth in [place] tablet 00 the Medical morning. Branch Indication s: CAD levothyroxi 2021- Yes 50ug Take 1 [facility] ne 50 mcg 1-07 tablet by [facility] o f tablet 00:00: mouth [place] 00 every Medical morning. Branch isosorbide 2021- Yes 30mg Take 1 [facility] mononitrate 1-07 tablet by [facility] of 30 mg 24 hr 00:00: mouth in [place] tablet 00 the Medical morning. Branch Indication s: CAD levothyroxi 2021-11 Yes 50ug Take 1 [facility] ne 50 mcg 1-07 tablet by [facility] o f tablet 00:00: mouth [place] 00 every Medical morning. Branch isosorbide 2021- Yes 30mg Take 1 [facility] mononitrate 1-07 tablet by [facility] of 30 mg 24 hr 00:00: mouth in [place] tablet 00 the Medical morning. Branch Indication s: CAD levothyroxi 2021- Yes 50ug Take 1 [facility] ne 50 mcg 1-07 tablet by [facility] o f tablet 00:00: mouth [place] 00 every Medical morning. Branch isosorbide 2021- Yes 30mg Take 1 [facility] mononitrate 1-07 tablet by [facility] 30 mg 24 hr 00:00: mouth in [place] tablet 00 the Medical morning. Branch Indication s: CAD levothyroxi 2021- Yes 50ug Take 1 [facility] ne 50 mcg 1-07 tablet by [facility] o f tablet 00:00: mouth [place] 00 every Medical morning. Branch isosorbide 2021- Yes 30mg Take 1 [facility] mononitrate 1-07 tablet by [facility] 30 mg 24 hr 00:00: mouth in [place] tablet 00 the Medical morning. Branch Indication s: CAD levothyroxi 2021- Yes 50ug Take 1 [facility] ne 50 mcg 1-07 tablet by [facility] o f tablet 00:00: mouth [place] 00 every Medical morning. Branch isosorbide 2021- Yes 30mg Take 1 [facility] mononitrate 1-07 tablet by [facility] 30 mg 24 hr 00:00: mouth in [place] tablet 00 the Medical morning. Branch Indication s: CAD levothyroxi 2021-11 Yes 50ug Take 1 [facility] ne 50 mcg 1-07 tablet by [facility] o f tablet 00:00: mouth [place] 00 every Medical morning. Branch isosorbide 2021- Yes 30mg Take 1 [facility] mononitrate 1-07 tablet by [facility] of 30 mg 24 hr 00:00: mouth in [place] tablet 00 the Medical morning. Branch Indication s: CAD levothyroxi 2021-11 Yes 50ug Take 1 [facility] ne 50 mcg 1-07 tablet by [facility] o f tablet 00:00: mouth [place] 00 every Medical morning. Branch isosorbide 2021- Yes 30mg Take 1 [facility] mononitrate 1-07 tablet by [facility] of 30 mg 24 hr 00:00: mouth in [place] tablet 00 the Medical morning. Branch Indication s: CAD levothyroxi 2021-11 Yes 50ug Take 1 [facility] ne 50 mcg 1-07 tablet by [facility] o f tablet 00:00: mouth [place] 00 every Medical morning. Branch isosorbide 2021- Yes 30mg Take 1 [facility] mononitrate 1-07 tablet by [facility] 30 mg 24 hr 00:00: mouth in [place] tablet 00 the Medical morning. Branch Indication s: CAD levothyroxi 2021- Yes 50ug Take 1 [facility] ne 50 mcg 1-07 tablet by [facility] o f tablet 00:00: mouth [place] 00 every Medical morning. Branch isosorbide 2021- Yes 30mg Take 1 [facility] mononitrate 1-07 tablet by [facility] 30 mg 24 hr 00:00: mouth in [place] tablet 00 the Medical morning. Branch Indication s: CAD levothyroxi 2021- Yes 50ug Take 1 [facility] ne 50 mcg 1-07 tablet by [facility] o f tablet 00:00: mouth [place] 00 every Medical morning. Branch isosorbide 2021- Yes 30mg Take 1 [facility] mononitrate 1-07 tablet by [facility] 30 mg 24 hr 00:00: mouth in [place] tablet 00 the Medical morning. Branch Indication s: CAD levothyroxi 2021- Yes 50ug Take 1 [facility] ne 50 mcg 1-07 tablet by [facility] o f tablet 00:00: mouth [place] 00 every Medical morning. Branch isosorbide 2021-1 Yes 30mg Take 1 [facility] mononitrate 1-07 tablet by [facility] 30 mg 24 hr 00:00: mouth in [place] tablet 00 the Medical morning. Branch Indication s: CAD levothyroxi 2021- Yes 50ug Take 1 [facility] ne 50 mcg 1-07 tablet by [facility] o f tablet 00:00: mouth [place] 00 every Medical morning. Branch isosorbide 2021- Yes 30mg Take 1 [facility] mononitrate 1-07 tablet by [facility] 30 mg 24 hr 00:00: mouth in [place] tablet 00 the Medical morning. Branch Indication s: CAD levothyroxi 2021- Yes 50ug Take 1 [facility] ne 50 mcg 1-07 tablet by [facility] o f tablet 00:00: mouth [place] 00 every Medical morning. Branch isosorbide 2021- Yes 30mg Take 1 [facility] mononitrate 1-07 tablet by [facility] 30 mg 24 hr 00:00: mouth in [place] tablet 00 the Medical morning. Branch Indication s: CAD levothyroxi 2021- Yes 50ug Take 1 [facility] ne 50 mcg 1-07 tablet by [facility] o f tablet 00:00: mouth [place] 00 every Medical morning. Branch isosorbide 2021- Yes 30mg Take 1 [facility] mononitrate 1-07 tablet by [facility] 30 mg 24 hr 00:00: mouth in [place] tablet 00 the Medical morning. Branch Indication s: CAD levothyroxi 2021- Yes 50ug Take 1 [facility] ne 50 mcg 1-07 tablet by [facility] o f tablet 00:00: mouth [place] 00 every Medical morning. Branch isosorbide 2021- Yes 30mg Take 1 [facility] mononitrate 1-07 tablet by [facility] 30 mg 24 hr 00:00: mouth in [place] tablet 00 the Medical morning. Branch Indication s: CAD levothyroxi 2021- Yes 50ug Take 1 [facility] ne 50 mcg 1-07 tablet by [facility] o f tablet 00:00: mouth [place] 00 every Medical morning. Branch isosorbide 2021- Yes 30mg Take 1 [facility] mononitrate 1-07 tablet by [facility] 30 mg 24 hr 00:00: mouth in [place] tablet 00 the Medical morning. Branch Indication s: CAD levothyroxi 2021-11 Yes 50ug Take 1 [facility] ne 50 mcg 1-07 tablet by [facility] o f tablet 00:00: mouth [place] 00 every Medical morning. Branch isosorbide 2021- Yes 30mg Take 1 [facility] mononitrate 1-07 tablet by [facility] 30 mg 24 hr 00:00: mouth in [place] tablet 00 the Medical morning. Branch Indication s: CAD levothyroxi 2021-11 Yes 50ug Take 1 [facility] ne 50 mcg 1-07 tablet by [facility] o f tablet 00:00: mouth [place] 00 every Medical morning. Branch isosorbide 2021-11 Yes 30mg Take 1 [facility] mononitrate 1-07 tablet by [facility] 30 mg 24 hr 00:00: mouth in [place] tablet 00 the Medical morning. Branch Indication s: CAD levothyroxi 2021-11 Yes 50ug Take 1 [facility] ne 50 mcg 1-07 tablet by [facility] o f tablet 00:00: mouth [place] 00 every Medical morning. Branch isosorbide 2021- Yes 30mg Take 1 [facility] mononitrate 1-07 tablet by [facility] of 30 mg 24 hr 00:00: mouth in [place] tablet 00 the Medical morning. Branch Indication s: CAD levothyroxi 2021-11 Yes 50ug Take 1 [facility] ne 50 mcg 1-07 tablet by [facility] o f tablet 00:00: mouth [place] 00 every Medical morning. Branch isosorbide 2021- Yes 30mg Take 1 [facility] mononitrate 1-07 tablet by [facility] 30 mg 24 hr 00:00: mouth in [place] tablet 00 the Medical morning. Branch Indication s: CAD levothyroxi 2021- Yes 50ug Take 1 [facility] ne 50 mcg 1-07 tablet by [facility] o f tablet 00:00: mouth [place] 00 every Medical morning. Branch isosorbide 2021- Yes 30mg Take 1 [facility] mononitrate 1-07 tablet by [facility] of 30 mg 24 hr 00:00: mouth in [place] tablet 00 the Medical morning. Branch Indication s: CAD levothyroxi 2021- Yes 50ug Take 1 [facility] ne 50 mcg 1-07 tablet by [facility] o f tablet 00:00: mouth [place] 00 every Medical morning. Branch isosorbide 2021-1 Yes 30mg Take 1 [facility] mononitrate 1-07 tablet by [facility] 30 mg 24 hr 00:00: mouth in [place] tablet 00 the Medical morning. Branch Indication s: CAD levothyroxi 2021- Yes 50ug Take 1 [facility] ne 50 mcg 1-07 tablet by [facility] o f tablet 00:00: mouth [place] 00 every Medical morning. Branch isosorbide 2021- Yes 30mg Take 1 [facility] mononitrate 1-07 tablet by [facility] of 30 mg 24 hr 00:00: mouth in [place] tablet 00 the Medical morning. Branch Indication s: CAD levothyroxi 2021- Yes 50ug Take 1 [facility] ne 50 mcg 1-07 tablet by [facility] o f tablet 00:00: mouth [place] 00 every Medical morning. Branch isosorbide 2021- Yes 30mg Take 1 [facility] mononitrate 1-07 tablet by [facility] of 30 mg 24 hr 00:00: mouth in [place] tablet 00 the Medical morning. Branch Indication s: CAD levothyroxi 2021- Yes 50ug Take 1 [facility] ne 50 mcg 1-07 tablet by [facility] o f tablet 00:00: mouth [place] 00 every Medical morning. Branch isosorbide 2021- Yes 30mg Take 1 [facility] mononitrate 1-07 tablet by [facility] of 30 mg 24 hr 00:00: mouth in [place] tablet 00 the Medical morning. Branch Indication s: CAD levothyroxi 2021- Yes 50ug Take 1 [facility] ne 50 mcg 1-07 tablet by [facility] o f tablet 00:00: mouth [place] 00 every Medical morning. Branch isosorbide 2021- Yes 30mg Take 1 [facility] mononitrate 1-07 tablet by [facility] of 30 mg 24 hr 00:00: mouth in [place] tablet 00 the Medical morning. Branch Indication s: CAD levothyroxi 2021- Yes 50ug Take 1 [facility] ne 50 mcg 1-07 tablet by [facility] o f tablet 00:00: mouth [place] 00 every Medical morning. Branch isosorbide 2021- Yes 30mg Take 1 [facility] mononitrate 1-07 tablet by [facility] of 30 mg 24 hr 00:00: mouth in [place] tablet 00 the Medical morning. Branch Indication s: CAD levothyroxi 2021-11 Yes 50ug Take 1 [facility] ne 50 mcg 1-07 tablet by [facility] o f tablet 00:00: mouth [place] 00 every Medical morning. Branch isosorbide 2021- Yes 30mg Take 1 [facility] mononitrate 1-07 tablet by [facility] of 30 mg 24 hr 00:00: mouth in [place] tablet 00 the Medical morning. Branch Indication s: CAD levothyroxi 2021- Yes 50ug Take 1 [facility] ne 50 mcg 1-07 tablet by [facility] o f tablet 00:00: mouth [place] 00 every Medical morning. Branch isosorbide 2021- Yes 30mg Take 1 [facility] mononitrate 1-07 tablet by [facility] of 30 mg 24 hr 00:00: mouth in [place] tablet 00 the Medical morning. Branch Indication s: CAD levothyroxi 2021- Yes 50ug Take 1 [facility] ne 50 mcg 1-07 tablet by [facility] o f tablet 00:00: mouth [place] 00 every Medical morning. Branch isosorbide 2021- Yes 30mg Take 1 [facility] mononitrate 1-07 tablet by [facility] of 30 mg 24 hr 00:00: mouth in [place] tablet 00 the Medical morning. Branch Indication s: CAD levothyroxi 2021- Yes 50ug Take 1 [facility] ne 50 mcg 1-07 tablet by [facility] o f tablet 00:00: mouth [place] 00 every Medical morning. Branch isosorbide 2021- Yes 30mg Take 1 [facility] mononitrate 1-07 tablet by [facility] of 30 mg 24 hr 00:00: mouth in [place] tablet 00 the Medical morning. Branch Indication s: CAD levothyroxi 2021- Yes 50ug Take 1 [facility] ne 50 mcg 1-07 tablet by [facility] o f tablet 00:00: mouth [place] 00 every Medical morning. Branch isosorbide 2021- Yes 30mg Take 1 [facility] mononitrate 1-07 tablet by [facility] of 30 mg 24 hr 00:00: mouth in [place] tablet 00 the Medical morning. Branch Indication s: CAD levothyroxi 2021- Yes 50ug Take 1 [facility] ne 50 mcg 1-07 tablet by [facility] o f tablet 00:00: mouth [place] 00 every Medical morning. Branch isosorbide 2021- Yes 30mg Take 1 [facility] mononitrate 1-07 tablet by [facility] of 30 mg 24 hr 00:00: mouth in [place] tablet 00 the Medical morning. Branch Indication s: CAD levothyroxi 2021- Yes 50ug Take 1 [facility] ne 50 mcg 1-07 tablet by [facility] o f tablet 00:00: mouth [place] 00 every Medical morning. Branch isosorbide 2021- Yes 30mg Take 1 [facility] mononitrate 1-07 tablet by [facility] of 30 mg 24 hr 00:00: mouth in [place] tablet 00 the Medical morning. Branch Indication s: CAD levothyroxi 2021- Yes 50ug Take 1 [facility] ne 50 mcg 1-07 tablet by [facility] o f tablet 00:00: mouth [place] 00 every Medical morning. Branch isosorbide 2021- Yes 30mg Take 1 [facility] mononitrate 1-07 tablet by [facility] of 30 mg 24 hr 00:00: mouth in [place] tablet 00 the Medical morning. Branch Indication s: CAD levothyroxi 2021-1 Yes 50ug Take 1 [facility] ne 50 mcg 1-07 tablet by [facility] o f tablet 00:00: mouth [place] 00 every Medical morning. Branch isosorbide 2021- Yes 30mg Take 1 [facility] mononitrate 1-07 tablet by [facility] of 30 mg 24 hr 00:00: mouth in [place] tablet 00 the Medical morning. Branch Indication s: CAD levothyroxi 2021- Yes 50ug Take 1 [facility] ne 50 mcg 1-07 tablet by [facility] o f tablet 00:00: mouth [place] 00 every Medical morning. Branch isosorbide 2021- Yes 30mg Take 1 [facility] mononitrate 1-07 tablet by [facility] of 30 mg 24 hr 00:00: mouth in [place] tablet 00 the Medical morning. Branch Indication s: CAD levothyroxi 2021- Yes 50ug Take 1 [facility] ne 50 mcg 1-07 tablet by [facility] o f tablet 00:00: mouth [place] 00 every Medical morning. Branch isosorbide 2021- Yes 30mg Take 1 [facility] mononitrate 1-07 tablet by [facility] of 30 mg 24 hr 00:00: mouth in [place] tablet 00 the Medical morning. Branch Indication s: CAD isosorbide 2021-1 Yes 30mg Take 1 [facility] mononitrate 1-07 tablet by [facility] of 30 mg 24 hr 00:00: mouth in [place] tablet 00 the Medical morning. Branch Indication s: CAD isosorbide 2021- Yes 30mg Take 1 [facility] mononitrate 1-07 tablet by [facility] of 30 mg 24 hr 00:00: mouth in [place] tablet 00 the Medical morning. Branch Indication s: CAD isosorbide 2021- Yes 30mg Take 1 [facility] rs mononitrate 1-07 tablet by [facility] of 30 mg 24 hr 00:00: mouth in [place] tablet 00 the Medical morning. Branch Indication s: CAD isosorbide 2021-11 Yes 30mg Take 1 [facility] rs mononitrate 1-07 tablet by [facility] of 30 mg 24 hr 00:00: mouth in [place] tablet 00 the Medical morning. Branch Indication s: CAD isosorbide 2021-11 Yes 30mg Take 1 [facility] rs mononitrate 1-07 tablet by [facility] of 30 mg 24 hr 00:00: mouth in [place] tablet 00 the Medical morning. Branch Indication s: CAD isosorbide 2021-11 Yes 30mg Take 1 [facility] rs mononitrate 1-07 tablet by [facility] of 30 mg 24 hr 00:00: mouth in [place] tablet 00 the Medical morning. Branch Indication s: CAD isosorbide 2021-11 Yes 30mg Take 1 [facility] rs mononitrate 1-07 tablet by [facility] of 30 mg 24 hr 00:00: mouth in [place] tablet 00 the Medical morning. Branch Indication s: CAD isosorbide 2021-11- No 30mg Take 1 [facility] mononitrate 11-30 tablet by [facility] y of 30 mg 24 hr 00:00: 00:00 mouth in [place] tablet 00 :00 the Medical morning. Branch Indication s: CAD isosorbide 2021-11- No 30mg Take 1 [facility] mononitrate 11-30- tablet by [facility] y of 30 mg 24 hr 00:00: 00:00 mouth in [place] tablet 00 :00 the Medical morning. Branch Indication s: CAD levothyroxi 2021-11- No 50ug Take 1 [facility] ne 50 mcg 1-07 04-22 tablet by [facility] of tablet 00:00: 00:00 mouth [place] 00 :00 every Medical morning. Branch ezetimibe 2021-11 Yes [id number] 10mg Take 1 [facility] 10 mg 1-01 tablet by [facility] of tablet 00:00: mouth in [place] the Medical morning. Branch ezetimibe 2021-11 Yes [id number] 10mg Take 1 [facility] 10 mg 1-01 tablet by [facility] of tablet 00:00: mouth in [place] the Medical morning. Branch ezetimibe 2021-11 Yes [id number] 10mg Take 1 [facility] 10 mg 1-01 tablet by [facility] of tablet 00:00: mouth in [place] the Medical morning. Branch ezetimibe 2021-11 Yes [id number] 10mg Take 1 [facility] 10 mg 1-01 tablet by [facility] of tablet 00:00: mouth in [place] the Medical morning. Branch ezetimibe 2021-11 Yes [id number] 10mg Take 1 [facility] 10 mg 1-01 tablet by [facility] of tablet 00:00: mouth in [place] the Medical morning. Branch ezetimibe 2021-11 Yes [id number] 10mg Take 1 [facility] 10 mg 1-01 tablet by [facility] of tablet 00:00: mouth in [place] the Medical morning. Branch ezetimibe 2021-11 Yes [id number] 10mg Take 1 [facility] 10 mg 1-01 tablet by [facility] of tablet 00:00: mouth in [place] the Medical morning. Branch ezetimibe 2021-11 Yes [id number] 10mg Take 1 [facility] 10 mg 1-01 tablet by [facility] of tablet 00:00: mouth in [place] the Medical morning. Branch ezetimibe 2021-11 Yes [id number] 10mg Take 1 [facility] 10 mg 1-01 tablet by [facility] of tablet 00:00: mouth in [place] the Medical morning. Branch ezetimibe 2021-11 Yes [id number] 10mg Take 1 [facility] 10 mg 1-01 tablet by [facility] of tablet 00:00: mouth in [place] 00 the Medical morning. Branch ezetimibe 2021-11 Yes [id number] 10mg Take 1 [facility] 10 mg 1-01 tablet by [facility] of tablet 00:00: mouth in [place] 00 the Medical morning. Branch ezetimibe 2021-11 Yes [id number] 10mg Take 1 [facility] 10 mg 1-01 tablet by [facility] of tablet 00:00: mouth in [place] the Medical morning. Branch ezetimibe 2021-11 Yes [id number] 10mg Take 1 [facility] 10 mg 1-01 tablet by [facility] of tablet 00:00: mouth in [place] the Medical morning. Branch ezetimibe 2021-11 Yes [id number] 10mg Take 1 [facility] 10 mg 1-01 tablet by [facility] of tablet 00:00: mouth in [place] the Medical morning. Branch ezetimibe 2021-11 Yes [id number] 10mg Take 1 [facility] 10 mg 1-01 tablet by [facility] of tablet 00:00: mouth in [place] the Medical morning. Branch ezetimibe 2021-11 Yes [id number] 10mg Take 1 [facility] 10 mg 1-01 tablet by [facility] of tablet 00:00: mouth in [place] the Medical morning. Branch ezetimibe 2021-11 Yes [id number] 10mg Take 1 [facility] 10 mg 1-01 tablet by [facility] of tablet 00:00: mouth in [place] the Medical morning. Branch ezetimibe 2021-11 Yes [id number] 10mg Take 1 [facility] 10 mg 1-01 tablet by [facility] of tablet 00:00: mouth in [place] the Medical morning. Branch ezetimibe 2021-11 Yes [id number] 10mg Take 1 [facility] 10 mg 1-01 tablet by [facility] of tablet 00:00: mouth in [place] the Medical morning. Branch ezetimibe 2021-11 Yes [id number] 10mg Take 1 [facility] 10 mg 1-01 tablet by [facility] of tablet 00:00: mouth in [place] 00 the Medical morning. Branch ezetimibe 2021-11 Yes [id number] 10mg Take 1 [facility] 10 mg 1-01 tablet by [facility] of tablet 00:00: mouth in [place] 00 the Medical morning. Branch ezetimibe 2021-11 Yes [id number] 10mg Take 1 [facility] 10 mg 1-01 tablet by [facility] of tablet 00:00: mouth in [place] 00 the Medical morning. Branch ezetimibe 2021-11 Yes [id number] 10mg Take 1 [facility] 10 mg 1-01 tablet by [facility] of tablet 00:00: mouth in [place] 00 the Medical morning. Branch ezetimibe 2021-11 Yes [id number] 10mg Take 1 [facility] 10 mg 1-01 tablet by [facility] of tablet 00:00: mouth in [place] 00 the Medical morning. Branch ezetimibe 2021-11 Yes [id number] 10mg Take 1 [facility] 10 mg 1-01 tablet by [facility] of tablet 00:00: mouth in [place] 00 the Medical morning. Branch ezetimibe 2021-11 Yes [id number] 10mg Take 1 [facility] 10 mg 1-01 tablet by [facility] of tablet 00:00: mouth in [place] 00 the Medical morning. Branch ezetimibe 2021-11 Yes [id number] 10mg Take 1 [facility] 10 mg 1-01 tablet by [facility] of tablet 00:00: mouth in [place] the Medical morning. Branch ezetimibe 2021-11 Yes [id number] 10mg Take 1 [facility] 10 mg 1-01 tablet by [facility] of tablet 00:00: mouth in [place] the Medical morning. Branch ezetimibe 2021-11 Yes [id number] 10mg Take 1 [facility] 10 mg 1-01 tablet by [facility] of tablet 00:00: mouth in [place] the Medical morning. Branch ezetimibe 2021-11 Yes [id number] 10mg Take 1 [facility] 10 mg 1-01 tablet by [facility] of tablet 00:00: mouth in [place] the Medical morning. Branch ezetimibe 2021-11 Yes [id number] 10mg Take 1 [facility] 10 mg 1-01 tablet by [facility] of tablet 00:00: mouth in [place] 00 the Medical morning. Branch ezetimibe 2021-11 Yes [id number] 10mg Take 1 [facility] 10 mg 1-01 tablet by [facility] of tablet 00:00: mouth in [place] 00 the Medical morning. Branch ezetimibe 2021-11 Yes [id number] 10mg Take 1 [facility] 10 mg 1-01 tablet by [facility] of tablet 00:00: mouth in [place] 00 the Medical morning. Branch ezetimibe 2021-11 Yes [id number] 10mg Take 1 [facility] 10 mg 1-01 tablet by [facility] of tablet 00:00: mouth in [place] 00 the Medical morning. Branch ezetimibe 2021-11 Yes [id number] 10mg Take 1 [facility] 10 mg 1-01 tablet by [facility] of tablet 00:00: mouth in [place] 00 the Medical morning. Branch ezetimibe 2021-11 Yes [id number] 10mg Take 1 [facility] 10 mg 1-01 tablet by [facility] of tablet 00:00: mouth in [place] the Medical morning. Branch ezetimibe 2021-11 Yes [id number] 10mg Take 1 [facility] 10 mg 1-01 tablet by [facility] of tablet 00:00: mouth in [place] the Medical morning. Branch ezetimibe 2021-11 Yes [id number] 10mg Take 1 [facility] 10 mg 1-01 tablet by [facility] of tablet 00:00: mouth in [place] the Medical morning. Branch ezetimibe 2021-11 Yes [id number] 10mg Take 1 [facility] 10 mg 1-01 tablet by [facility] of tablet 00:00: mouth in [place] the Medical morning. Branch ezetimibe 2021-11 Yes [id number] 10mg Take 1 [facility] 10 mg 1-01 tablet by [facility] of tablet 00:00: mouth in [place] the Medical morning. Branch ezetimibe 2021-11 Yes [id number] 10mg Take 1 [facility] 10 mg 1-01 tablet by [facility] of tablet 00:00: mouth in [place] the Medical morning. Branch ezetimibe 2021-11 Yes [id number] 10mg Take 1 [facility] 10 mg 1-01 tablet by [facility] of tablet 00:00: mouth in [place] the Medical morning. Branch ezetimibe 2021-11 Yes [id number] 10mg Take 1 [facility] 10 mg 1-01 tablet by [facility] of tablet 00:00: mouth in [place] 00 the Medical morning. Branch ezetimibe 2021-11 Yes [id number] 10mg Take 1 [facility] 10 mg 1-01 tablet by [facility] of tablet 00:00: mouth in [place] 00 the Medical morning. Branch ezetimibe 2021-11 Yes [id number] 10mg Take 1 [facility] 10 mg 1-01 tablet by [facility] of tablet 00:00: mouth in [place] 00 the Medical morning. Branch ezetimibe 2021-11 Yes [id number] 10mg Take 1 [facility] 10 mg 1-01 tablet by [facility] of tablet 00:00: mouth in [place] 00 the Medical morning. Branch ezetimibe 2021-11 Yes [id number] 10mg Take 1 [facility] 10 mg 1-01 tablet by [facility] of tablet 00:00: mouth in [place] the Medical morning. Branch ezetimibe 2021-11 Yes [id number] 10mg Take 1 [facility] 10 mg 1-01 tablet by [facility] of tablet 00:00: mouth in [place] the Medical morning. Branch ezetimibe 2021-11 Yes [id number] 10mg Take 1 [facility] 10 mg 1-01 tablet by [facility] of tablet 00:00: mouth in [place] the Medical morning. Branch ezetimibe 2021-11 Yes [id number] 10mg Take 1 [facility] 10 mg 1-01 tablet by [facility] of tablet 00:00: mouth in [place] the Medical morning. Branch ezetimibe 2021-11 Yes [id number] 10mg Take 1 [facility] 10 mg 1-01 tablet by [facility] of tablet 00:00: mouth in [place] the Medical morning. Branch ezetimibe 2021-11 Yes [id number] 10mg Take 1 [facility] 10 mg 1-01 tablet by [facility] of tablet 00:00: mouth in [place] the Medical morning. Branch ezetimibe 2021-11 Yes [id number] 10mg Take 1 [facility] 10 mg 1-01 tablet by [facility] of tablet 00:00: mouth in [place] the Medical morning. Branch ezetimibe 2021-11 Yes [id number] 10mg Take 1 [facility] 10 mg 1-01 tablet by [facility] of tablet 00:00: mouth in [place] 00 the Medical morning. Branch ezetimibe 2021-11 Yes [id number] 10mg Take 1 [facility] 10 mg 1-01 tablet by [facility] of tablet 00:00: mouth in [place] 00 the Medical morning. Branch ezetimibe 2021-11 Yes [id number] 10mg Take 1 [facility] 10 mg 1-01 tablet by [facility] of tablet 00:00: mouth in [place] 00 the Medical morning. Branch ezetimibe 2021-11- No [id number] 10mg Take 1 [facility] nivers 10 mg 11-24 tablet by [facility] of tablet 00:00: 00:00 mouth in [place] 00 :00 the Medical morning. Branch BASAGLAR 2021-11 Yes 44U inject 44 Univ ers KWIKPEN 0-28 Units ity of U-100 00:00: under the [place] INSULIN 100 00 skin in Medic al unit/mL (3 the Branch mL) morning. injection BASAGLAR 2021-11 Yes 44U inject 44 [facility] ers KWIKPEN 0-28 Units ity of U-100 00:00: under the [place] INSULIN 100 00 skin in Medic al unit/mL (3 the Branch mL) morning. injection BASAGLAR 2021-11 Yes 44U inject 44 [facility] ers KWIKPEN 0-28 Units ity of U-100 00:00: under the [place] INSULIN 100 00 skin in Medic al unit/mL (3 the Branch mL) morning. injection BASAGLAR 2021-11 Yes 44U inject 44 [facility] ers KWIKPEN 0-28 Units ity of U-100 00:00: under the [place] INSULIN 100 00 skin in Medic al unit/mL (3 the Branch mL) morning. injection BASAGLAR 2021-11 Yes 44U inject 44 [facility] ers KWIKPEN 0-28 Units ity of U-100 00:00: under the [place] INSULIN 100 00 skin in Medic al unit/mL (3 the Branch mL) morning. injection BASAGLAR 2021-11 Yes 44U inject 44 [facility] KWIKPEN 0-28 Units ity of U-100 00:00: under the [place] INSULIN 100 00 skin in Medic al unit/mL (3 the Branch mL) morning. injection BASAGLAR 2021-11 Yes 44U inject 44 [facility] KWIKPEN 0-28 Units ity of U-100 00:00: under the [place] INSULIN 100 00 skin in Medic al unit/mL (3 the Branch mL) morning. injection BASAGLAR 2021-11 Yes 44U inject 44 [facility] KWIKPEN 0-28 Units ity of U-100 00:00: under the [place] INSULIN 100 00 skin in Medic al unit/mL (3 the Branch mL) morning. injection BASAGLAR 2021-11 Yes 44U inject 44 [facility] KWIKPEN 0-28 Units ity of U-100 00:00: under the [place] INSULIN 100 00 skin in Medic al unit/mL (3 the Branch mL) morning. injection BASAGLAR 2021-11 Yes 44U inject 44 [facility] KWIKPEN 0-28 Units ity of U-100 00:00: under the [place] INSULIN 100 00 skin in Medic al unit/mL (3 the Branch mL) morning. injection BASAGLAR 2021-11 Yes 44U inject 44 [facility] KWIKPEN 0-28 Units ity of U-100 00:00: under the [place] INSULIN 100 00 skin in Medic al unit/mL (3 the Branch mL) morning. injection BASAGLAR 2021-11 Yes 44U inject 44 [facility] KWIKPEN 0-28 Units ity of U-100 00:00: under the [place] INSULIN 100 00 skin in Medic al unit/mL (3 the Branch mL) morning. injection BASAGLAR 2021-11 Yes 44U inject 44 [facility] KWIKPEN 0-28 Units ity of U-100 00:00: under the [place] INSULIN 100 00 skin in Medic al unit/mL (3 the Branch mL) morning. injection BASAGLAR 2021-11 Yes 44U inject 44 [facility] KWIKPEN 0-28 Units ity of U-100 00:00: under the [place] INSULIN 100 00 skin in Medic al unit/mL (3 the Branch mL) morning. injection BASAGLAR 2021-11 Yes 44U inject 44 [facility] KWIKPEN 0-28 Units ity of U-100 00:00: under the [place] INSULIN 100 00 skin in Medic al unit/mL (3 the Branch mL) morning. injection BASAGLAR 2021-11 Yes 44U inject 44 [facility] KWIKPEN 0-28 Units ity of U-100 00:00: under the [place] INSULIN 100 00 skin in Medic al unit/mL (3 the Branch mL) morning. injection BASAGLAR 2021-11 Yes 44U inject 44 [facility] KWIKPEN 0-28 Units ity of U-100 00:00: under the [place] INSULIN 100 00 skin in Medic al unit/mL (3 the Branch mL) morning. injection BASAGLAR 2021-11 Yes 44U inject 44 [facility] KWIKPEN 0-28 Units ity of U-100 00:00: under the [place] INSULIN 100 00 skin in Medic al unit/mL (3 the Branch mL) morning. injection BASAGLAR 2021-11 Yes 44U inject 44 [facility] KWIKPEN 0-28 Units ity of U-100 00:00: under the [place] INSULIN 100 00 skin in Medic al unit/mL (3 the Branch mL) morning. injection BASAGLAR 2021-11 Yes 44U inject 44 [facility] KWIKPEN 0-28 Units ity of U-100 00:00: under the [place] INSULIN 100 00 skin in Medic al unit/mL (3 the Branch mL) morning. injection BASAGLAR 2021-11 Yes 44U inject 44 [facility] KWIKPEN 0-28 Units ity of U-100 00:00: under the [place] INSULIN 100 00 skin in Medic al unit/mL (3 the Branch mL) morning. injection BASAGLAR 2021-11 Yes 44U inject 44 [facility] KWIKPEN 0-28 Units ity of U-100 00:00: under the [place] INSULIN 100 00 skin in Medic al unit/mL (3 the Branch mL) morning. injection BASAGLAR 2021-11 Yes 44U inject 44 [facility] KWIKPEN 0-28 Units ity of U-100 00:00: under the [place] INSULIN 100 00 skin in Medic al unit/mL (3 the Branch mL) morning. injection BASAGLAR 2021-11 Yes 44U inject 44 [facility] KWIKPEN 0-28 Units ity of U-100 00:00: under the [place] INSULIN 100 00 skin in Medic al unit/mL (3 the Branch mL) morning. injection BASAGLAR 2021-11 Yes 44U inject 44 [facility] KWIKPEN 0-28 Units ity of U-100 00:00: under the [place] INSULIN 100 00 skin in Medic al unit/mL (3 the Branch mL) morning. injection BASAGLAR 2021-11 Yes 44U inject 44 [facility] KWIKPEN 0-28 Units ity of U-100 00:00: under the [place] INSULIN 100 00 skin in Medic al unit/mL (3 the Branch mL) morning. injection BASAGLAR 2021-11 Yes 44U inject 44 [facility] KWIKPEN 0-28 Units ity of U-100 00:00: under the [place] INSULIN 100 00 skin in Medic al unit/mL (3 the Branch mL) morning. injection BASAGLAR 2021-11 Yes 44U inject 44 [facility] KWIKPEN 0-28 Units ity of U-100 00:00: under the [place] INSULIN 100 00 skin in Medic al unit/mL (3 the Branch mL) morning. injection BASAGLAR 2021-11 Yes 44U inject 44 [facility] KWIKPEN 0-28 Units ity of U-100 00:00: under the [place] INSULIN 100 00 skin in Medic al unit/mL (3 the Branch mL) morning. injection BASAGLAR 2021-11 Yes 44U inject 44 [facility] KWIKPEN 0-28 Units ity of U-100 00:00: under the [place] INSULIN 100 00 skin in Medic al unit/mL (3 the Branch mL) morning. injection BASAGLAR 2021-11 Yes 44U inject 44 [facility] KWIKPEN 0-28 Units ity of U-100 00:00: under the [place] INSULIN 100 00 skin in Medic al unit/mL (3 the Branch mL) morning. injection BASAGLAR 2021-11 Yes 44U inject 44 [facility] KWIKPEN 0-28 Units ity of U-100 00:00: under the [place] INSULIN 100 00 skin in Medic al unit/mL (3 the Branch mL) morning. injection BASAGLAR 2021-11 Yes 44U inject 44 [facility] KWIKPEN 0-28 Units ity of U-100 00:00: under the [place] INSULIN 100 00 skin in Medic al unit/mL (3 the Branch mL) morning. injection BASAGLAR 2021-11 Yes 44U inject 44 [facility] KWIKPEN 0-28 Units ity of U-100 00:00: under the [place] INSULIN 100 00 skin in Medic al unit/mL (3 the Branch mL) morning. injection BASAGLAR 2021-11 Yes 44U inject 44 [facility] KWIKPEN 0-28 Units ity of U-100 00:00: under the [place] INSULIN 100 00 skin in Medic al unit/mL (3 the Branch mL) morning. injection BASAGLAR 2021-11 Yes 44U inject 44 [facility] KWIKPEN 0-28 Units ity of U-100 00:00: under the [place] INSULIN 100 00 skin in Medic al unit/mL (3 the Branch mL) morning. injection BASAGLAR 2021-11 Yes 44U inject 44 [facility] KWIKPEN 0-28 Units ity of U-100 00:00: under the [place] INSULIN 100 00 skin in Medic al unit/mL (3 the Branch mL) morning. injection BASAGLAR 2021-11 Yes 44U inject 44 [facility] KWIKPEN 0-28 Units ity of U-100 00:00: under the [place] INSULIN 100 00 skin in Medic al unit/mL (3 the Branch mL) morning. injection BASAGLAR 2021-11 Yes 44U inject 44 [facility] KWIKPEN 0-28 Units ity of U-100 00:00: under the [place] INSULIN 100 00 skin in Medic al unit/mL (3 the Branch mL) morning. injection BASAGLAR 2021-11 Yes 44U inject 44 [facility] KWIKPEN 0-28 Units ity of U-100 00:00: under the [place] INSULIN 100 00 skin in Medic al unit/mL (3 the Branch mL) morning. injection BASAGLAR 2021-11 Yes 44U inject 44 [facility] KWIKPEN 0-28 Units ity of U-100 00:00: under the [place] INSULIN 100 00 skin in Medic al unit/mL (3 the Branch mL) morning. injection BASAGLAR 2021-11 Yes 44U inject 44 [facility] KWIKPEN 0-28 Units ity of U-100 00:00: under the [place] INS[facility]IN 100 00 skin in Medic al unit/mL (3 the Branch mL) morning. injection BASAGLAR 2021-11 Yes 44U inject 44 [facility] KWIKPEN 0-28 Units ity of U-100 00:00: under the [place] INS[facility]IN 100 00 skin in Medic al unit/mL (3 the Branch mL) morning. injection BASAGLAR 2021-11 Yes 44U inject 44 [facility] KWIKPEN 0-28 Units ity of U-100 00:00: under the [place] INS[facility]IN 100 00 skin in Medic al unit/mL (3 the Branch mL) morning. injection BASAGLAR 2021-11 Yes 44U inject 44 [facility] KWIKPEN 0-28 Units ity of U-100 00:00: under the [place] INS[facility]IN 100 00 skin in Medic al unit/mL (3 the Branch mL) morning. injection BASAGLAR 2021-11 Yes 44U inject 44 [facility] KWIKPEN 0-28 Units ity of U-100 00:00: under the [place] INS[facility]IN 100 00 skin in Medic al unit/mL (3 the Branch mL) morning. injection BASAGLAR 2021-11 Yes 44U inject 44 [facility] KWIKPEN 0-28 Units ity of U-100 00:00: under the [place] INS[facility]IN 100 00 skin in Medic al unit/mL (3 the Branch mL) morning. injection BASAGLAR 2021-11 Yes 44U inject 44 [facility] KWIKPEN 0-28 Units ity of U-100 00:00: under the [place] INS[facility] 100 00 skin in Medic al unit/mL (3 the Branch mL) morning. injection BASAGLAR 2021-11 Yes 44U inject 44 [facility] KWIKPEN 0-28 Units ity of U-100 00:00: under the [place] INS[facility]IN 100 00 skin in Medic al unit/mL (3 the Branch mL) morning. injection BASAGLAR 2021-11 Yes 44U inject 44 [facility] KWIKPEN 0-28 Units ity of U-100 00:00: under the [place] INS[facility]IN 100 00 skin in Medic al unit/mL (3 the Branch mL) morning. injection BASAGLAR 2021-11 Yes 44U inject 44 [facility] KWIKPEN 0-28 Units ity of U-100 00:00: under the [place] INS[facility]IN 100 00 skin in Medic al unit/mL (3 the Branch mL) morning. injection BASAGLAR 2021-11 Yes 44U inject 44 [facility] KWIKPEN 0-28 Units ity of U-100 00:00: under the [place] INS[facility]IN 100 00 skin in Medic al unit/mL (3 the Branch mL) morning. injection BASAGLAR 2021-11 Yes 44U inject 44 [facility] KWIKPEN 0-28 Units ity of U-100 00:00: under the [place] INS[facility]IN 100 00 skin in Medic al unit/mL (3 the Branch mL) morning. injection BASAGLAR 2021-11 Yes 44U inject 44 [facility] KWIKPEN 0-28 Units ity of U-100 00:00: under the [place] INS[facility] 100 00 skin in Medic al unit/mL (3 the Branch mL) morning. injection BASAGLAR 2021-11 Yes 44U inject 44 [facility] KWIKPEN 0-28 Units ity of U-100 00:00: under the [place] INS[facility]IN 100 00 skin in Medic al unit/mL (3 the Branch mL) morning. injection BASAGLAR 2021-11 Yes 44U inject 44 [facility] KWIKPEN 0-28 Units ity of U-100 00:00: under the [place] INS[facility]IN 100 00 skin in Medic al unit/mL (3 the Branch mL) morning. injection BASAGLAR 2021-11 Yes 44U inject 44 [facility] KWIKPEN 0-28 Units ity of U-100 00:00: under the [place] INS[facility]IN 100 00 skin in Medic al unit/mL (3 the Branch mL) morning. injection BASAGLAR 2021-11 Yes 44U inject 44 [facility] KWIKPEN 0-28 Units ity of U-100 00:00: under the [place] INS[facility]IN 100 00 skin in Medic al unit/mL (3 the Branch mL) morning. injection BASAGLAR 2021-11 Yes 44U inject 44 [facility] KWIKPEN 0-28 Units ity of U-100 00:00: under the [place] INS[facility]IN 100 00 skin in Medic al unit/mL (3 the Branch mL) morning. injection BASAGLAR 2021-11 Yes 44U inject 44 [facility] KWIKPEN 0-28 Units ity of U-100 00:00: under the [place] INS[facility]IN 100 00 skin in Medic al unit/mL (3 the Branch mL) morning. injection BASAGLAR 2021-11 Yes 44U inject 44 [facility] KWIKPEN 0-28 Units ity of U-100 00:00: under the [place] INS[facility]IN 100 00 skin in Medic al unit/mL (3 the Branch mL) morning. injection BASAGLAR 2021-11 Yes 44U inject 44 [facility] KWIKPEN 0-28 Units ity of U-100 00:00: under the [place] INS[facility]IN 100 00 skin in Medic al unit/mL (3 the Branch mL) morning. injection BASAGLAR 2021-11 Yes 44U inject 44 [facility] KWIKPEN 0-28 Units ity of U-100 00:00: under the [place] INS[facility]IN 100 00 skin in Medic al unit/mL (3 the Branch mL) morning. injection BASAGLAR 2021-11 Yes 44U inject 44 [facility] KWIKPEN 0-28 Units ity of U-100 00:00: under the [place] INS[facility]IN 100 00 skin in Medic al unit/mL (3 the Branch mL) morning. injection BASAGLAR 2021-11 Yes 44U inject 44 [facility] KWIKPEN 0-28 Units ity of U-100 00:00: under the [place] INS[facility]IN 100 00 skin in Medic al unit/mL (3 the Branch mL) morning. injection BASAGLAR 2022-1 Yes 44U inject 44 [facility] KWIKPEN 0-28 Units ity of U-100 00:00: under the [place] INS[facility]IN 100 00 skin in Medic al unit/mL (3 the Branch mL) morning. injection BASAGLAR 2021-11 Yes 44U inject 44 [facility] KWIKPEN 0-28 Units ity of U-100 00:00: under the [place] INS[facility]IN 100 00 skin in Medic al unit/mL (3 the Branch mL) morning. injection BASAGLAR 2021-11 Yes 44U inject 44 [facility] KWIKPEN 0-28 Units ity of U-100 00:00: under the [place] INS[facility]IN 100 00 skin in Medic al unit/mL (3 the Branch mL) morning. injection BASAGLAR 2021-11 Yes 44U inject 44 [facility] KWIKPEN 0-28 Units ity of U-100 00:00: under the [place] INS[facility]IN 100 00 skin in Medic al unit/mL (3 the Branch mL) morning. injection BASAGLAR 2021-11 Yes 44U inject 44 [facility] KWIKPEN 0-28 Units ity of U-100 00:00: under the [place] INS[facility]IN 100 00 skin in Medic al unit/mL (3 the Branch mL) morning. injection BASAGLAR 2021-11 Yes 44U inject 44 [facility] KWIKPEN 0-28 Units ity of U-100 00:00: under the [place] INS[facility]IN 100 00 skin in Medic al unit/mL (3 the Branch mL) morning. injection BASAGLAR 2021-11 Yes 44U inject 44 [facility] KWIKPEN 0-28 Units ity of U-100 00:00: under the [place] INS[facility]IN 100 00 skin in Medic al unit/mL (3 the Branch mL) morning. injection BASAGLAR 2021-11 Yes 44U inject 44 [facility] KWIKPEN 0-28 Units ity of U-100 00:00: under the [place] INS[facility]IN 100 00 skin in Medic al unit/mL (3 the Branch mL) morning. injection BASAGLAR 2021-11 Yes 44U inject 44 [facility] KWIKPEN 0-28 Units ity of U-100 00:00: under the [place] INS[facility]IN 100 00 skin in Medic al unit/mL (3 the Branch mL) morning. injection BASAGLAR 2021-11 Yes 44U inject 44 [facility] KWIKPEN 0-28 Units ity of U-100 00:00: under the [place] INS[facility]IN 100 00 skin in Medic al unit/mL (3 the Branch mL) morning. injection BASAGLAR 2021-11 Yes 44U inject 44 [facility] KWIKPEN 0-28 Units ity of U-100 00:00: under the [place] INS[facility]IN 100 00 skin in Medic al unit/mL (3 the Branch mL) morning. injection BASAGLAR 2021-11 Yes 44U inject 44 [facility] KWIKPEN 0-28 Units ity of U-100 00:00: under the [place] INS[facility]IN 100 00 skin in Medic al unit/mL (3 the Branch mL) morning. injection BASAGLAR 2021-11 Yes 44U inject 44 [facility] KWIKPEN 0-28 Units ity of U-100 00:00: under the [place] INS[facility]IN 100 00 skin in Medic al unit/mL (3 the Branch mL) morning. injection BASAGLAR 2021-11 Yes 44U inject 44 [facility] KWIKPEN 0-28 Units ity of U-100 00:00: under the [place] INS[facility]IN 100 00 skin in Medic al unit/mL (3 the Branch mL) morning. injection BASAGLAR 2021-11 Yes 44U inject 44 [facility] KWIKPEN 0-28 Units ity of U-100 00:00: under the [place] INS[facility]IN 100 00 skin in Medic al unit/mL (3 the Branch mL) morning. injection BASAGLAR 2021-11 Yes 44U inject 44 [facility] KWIKPEN 0-28 Units ity of U-100 00:00: under the [place] INSULIN 100 00 skin in Medic al unit/mL (3 the Branch mL) morning. injection BASAGLAR 2021-11 Yes 44U inject 44 [facility] KWIKPEN 0-28 Units ity of U-100 00:00: under the [place] INSULIN 100 00 skin in Medic al unit/mL (3 the Branch mL) morning. injection BASAGLAR 2021-11 Yes 44U inject 44 [facility] KWIKPEN 0-28 Units ity of U-100 00:00: under the [place] INSULIN 100 00 skin in Medic al unit/mL (3 the Branch mL) morning. injection BASAGLAR 2021-11 Yes 44U inject 44 [facility] KWIKPEN 0-28 Units ity of U-100 00:00: under the [place] INSULIN 100 00 skin in Medic al unit/mL (3 the Branch mL) morning. injection BASAGLAR 2021-11 Yes 44U inject 44 [facility] KWIKPEN 0-28 Units ity of U-100 00:00: under the [place] INSULIN 100 00 skin in Medic al unit/mL (3 the Branch mL) morning. injection BASAGLAR 2021-11 Yes 44U inject 44 [facility] KWIKPEN 0-28 Units ity of U-100 00:00: under the [place] INSULIN 100 00 skin in Medic al unit/mL (3 the Branch mL) morning. injection BASAGLAR 2021-11 Yes 44U inject 44 [facility] KWIKPEN 0-28 Units ity of U-100 00:00: under the [place] INSULIN 100 00 skin in Medic al unit/mL (3 the Branch mL) morning. injection BASAGLAR 2021-11 Yes 44U inject 44 [facility] KWIKPEN 0-28 Units ity of U-100 00:00: under the [place] INSULIN 100 00 skin in Medic al unit/mL (3 the Branch mL) morning. injection BASAGLAR 2021-11 Yes 44U inject 44 [facility] KWIKPEN 0-28 Units ity of U-100 00:00: under the [place] INSULIN 100 00 skin in Medic al unit/mL (3 the Branch mL) morning. injection BASAGLAR 2021-11 Yes 44U inject 44 [facility] KWIKPEN 0-28 Units ity of U-100 00:00: under the [place] INSULIN 100 00 skin in Medic al unit/mL (3 the Branch mL) morning. injection BASAGLAR 2021-11 Yes 44U inject 44 [facility] KWIKPEN 0-28 Units ity of U-100 00:00: under the [place] INSULIN 100 00 skin in Medic al unit/mL (3 the Branch mL) morning. injection BASAGLAR 2021-11 Yes 44U inject 44 [facility] KWIKPEN 0-28 Units ity of U-100 00:00: under the [place] INSULIN 100 00 skin in Medic al unit/mL (3 the Branch mL) morning. injection BASAGLAR 2021-11 Yes 44U inject 44 [facility] KWIKPEN 0-28 Units ity of U-100 00:00: under the [place] INSULIN 100 00 skin in Medic al unit/mL (3 the Branch mL) morning. injection BASAGLAR 2021-11 Yes 44U inject 44 [facility] KWIKPEN 0-28 Units ity of U-100 00:00: under the [place] INSULIN 100 00 skin in Medic al unit/mL (3 the Branch mL) morning. injection BASAGLAR 2021-11 Yes 44U inject 44 [facility] KWIKPEN 0-28 Units ity of U-100 00:00: under the [place] INSULIN 100 00 skin in Medic al unit/mL (3 the Branch mL) morning. injection BASAGLAR 2021-11 Yes 44U inject 44 [facility] KWIKPEN 0-28 Units ity of U-100 00:00: under the [place] INSULIN 100 00 skin in Medic al unit/mL (3 the Branch mL) morning. injection BASAGLAR 2021-11 Yes 44U inject 44 [facility] KWIKPEN 0-28 Units ity of U-100 00:00: under the [place] INSULIN 100 00 skin in Medic al unit/mL (3 the Branch mL) morning. injection BASAGLAR 2021-11 Yes 44U inject 44 [facility] KWIKPEN 0-28 Units ity of U-100 00:00: under the [place] INSULIN 100 00 skin in Medic al unit/mL (3 the Branch mL) morning. injection BASAGLAR 2021-11 Yes 44U inject 44 [facility] KWIKPEN 0-28 Units ity of U-100 00:00: under the [place] INSULIN 100 00 skin in Medic al unit/mL (3 the Branch mL) morning. injection BASAGLAR 2021-11 Yes 44U inject 44 [facility] KWIKPEN 0-28 Units ity of U-100 00:00: under the [place] INSULIN 100 00 skin in Medic al unit/mL (3 the Branch mL) morning. injection losartan 2021-0 Yes [id number] 100mg Take 1 [facility] 100 mg 9-22 tablet by ity of tablet 00:00: mouth [place] 00 every Medical morning. Branch losartan 2021-0 Yes [id number] 100mg Take 1 [facility] 100 mg 9-22 tablet by ity of tablet 00:00: mouth [place] 00 every Medical morning. Branch losartan 2021-0 Yes [id number] 100mg Take 1 [facility] 100 mg 9-22 tablet by ity of tablet 00:00: mouth [place] 00 every Medical morning. Branch losartan 2021-0 Yes [id number] 100mg Take 1 [facility] 100 mg 9-22 tablet by ity of tablet 00:00: mouth [place] 00 every Medical morning. Branch losartan 2021-0 Yes [id number] 100mg Take 1 [facility] 100 mg 9-22 tablet by ity of tablet 00:00: mouth [place] 00 every Medical morning. Branch losartan 2021-0 Yes [id number] 100mg Take 1 [facility] 100 mg 9-22 tablet by ity of tablet 00:00: mouth [place] 00 every Medical morning. Branch losartan 2021-0 Yes [id number] 100mg Take 1 [facility] 100 mg 9-22 tablet by ity of tablet 00:00: mouth [place] 00 every Medical morning. Branch losartan 2021-0 Yes [id number] 100mg Take 1 [facility] 100 mg 9-22 tablet by ity of tablet 00:00: mouth [place] 00 every Medical morning. Branch losartan 2021-0 Yes [id number] 100mg Take 1 [facility] 100 mg 9-22 tablet by ity of tablet 00:00: mouth [place] 00 every Medical morning. Branch losartan 2021-0 Yes [id number] 100mg Take 1 [facility] 100 mg 9-22 tablet by ity of tablet 00:00: mouth [place] 00 every Medical morning. Branch losartan 2021-0 Yes [id number] 100mg Take 1 [facility] 100 mg 9-22 tablet by ity of tablet 00:00: mouth [place] 00 every Medical morning. Branch losartan 2021-0 Yes [id number] 100mg Take 1 [facility] 100 mg 9-22 tablet by ity of tablet 00:00: mouth [place] 00 every Medical morning. Branch losartan 2021-0 Yes [id number] 100mg Take 1 [facility] 100 mg 9-22 tablet by ity of tablet 00:00: mouth [place] 00 every Medical morning. Branch losartan 2021-0 Yes [id number] 100mg Take 1 [facility] 100 mg 9-22 tablet by ity of tablet 00:00: mouth [place] 00 every Medical morning. Branch losartan 2021-0 Yes [id number] 100mg Take 1 [facility] 100 mg 9-22 tablet by ity of tablet 00:00: mouth [place] 00 every Medical morning. Branch losartan 2-0 Yes [id number] 100mg Take 1 [facility] 100 mg 9-22 tablet by ity of tablet 00:00: mouth [place] 00 every Medical morning. Branch losartan 2-0 2- No [id number] 100mg Take 1 [facility] 100 mg 9-22 12-14 tablet by ity of tablet 00:00: 00:00 mouth [place] 00 :00 every Medical morning. Branch flash 202-0 Yes [id number] 1{each} Apply 1 [facility] glucose 9-17 Each to ity of sensor 00:00: skin every (FREESTYLE 00 14 Medical PACO 14 (fourteen) Branc h DAY SENSOR) days. Dx Kit E11.65 flash 2021-0 Yes [id number] 1{each} Apply 1 [facility] glucose 9-17 Each to ity of sensor 00:00: skin every (FREESTYLE 00 14 Medical PACO 14 (fourteen) Branc h DAY SENSOR) days. Dx Kit E11.65 flash 2021-0 Yes [id number] 1{each} Apply 1 [facility] glucose 9-17 Each to ity of sensor 00:00: skin every (FREESTYLE 00 14 Medical PACO 14 (fourteen) Branc h DAY SENSOR) days. Dx Kit E11.65 flash 2021-0 Yes [id number] 1{each} Apply 1 [facility] glucose 9-17 Each to ity of sensor 00:00: skin every (FREESTYLE 00 14 Medical PACO 14 (fourteen) Branc h DAY SENSOR) days. Dx Kit E11.65 flash 2021-0 Yes [id number] 1{each} Apply 1 [facility] glucose 9-17 Each to ity of sensor 00:00: skin every (FREESTYLE 00 14 Medical PACO 14 (fourteen) Branc h DAY SENSOR) days. Dx Kit E11.65 flash 2021-0 Yes [id number] 1{each} Apply 1 [facility] glucose 9-17 Each to ity of sensor 00:00: skin every (FREESTYLE 00 14 Medical PACO 14 (fourteen) Branc h DAY SENSOR) days. Dx Kit E11.65 flash 2021-0 Yes [id number] 1{each} Apply 1 [facility] glucose 9-17 Each to ity of sensor 00:00: skin every [place] (FREESTYLE 00 14 Medical PACO 14 (fourteen) Branc h DAY SENSOR) days. Dx Kit E11.65 flash 2021-0 Yes [id number] 1{each} Apply 1 [facility] glucose 9-17 Each to ity of sensor 00:00: skin every (FREESTYLE 00 14 Medical PACO 14 (fourteen) Branc h DAY SENSOR) days. Dx Kit E11.65 flash 202-0 Yes [id number] 1{each} Apply 1 [facility] glucose 9-17 Each to ity of sensor 00:00: skin every [place] (FREESTYLE 00 14 Medical PACO 14 (fourteen) Branc h DAY SENSOR) days. Dx Kit E11.65 flash 2021-0 Yes [id number] 1{each} Apply 1 [facility] glucose 9-17 Each to ity of sensor 00:00: skin every [place] (FREESTYLE 00 14 Medical PACO 14 (fourteen) Branc h DAY SENSOR) days. Dx Kit E11.65 flash 2021-0 Yes [id number] 1{each} Apply 1 [facility] glucose 9-17 Each to ity of sensor 00:00: skin every (FREESTYLE 00 14 Medical PACO 14 (fourteen) Branc h DAY SENSOR) days. Dx Kit E11.65 flash 2021-0 Yes [id number] 1{each} Apply 1 [facility] glucose 9-17 Each to ity of sensor 00:00: skin every (FREESTYLE 00 14 Medical PACO 14 (fourteen) Branc h DAY SENSOR) days. Dx Kit E11.65 flash 2021-0 Yes [id number] 1{each} Apply 1 [facility] glucose 9-17 Each to ity of sensor 00:00: skin every (FREESTYLE 00 14 Medical PACO 14 (fourteen) Branc h DAY SENSOR) days. Dx Kit E11.65 flash 2021-0 Yes [id number] 1{each} Apply 1 [facility] glucose 9-17 Each to ity of sensor 00:00: skin every (FREESTYLE 00 14 Medical PACO 14 (fourteen) Branc h DAY SENSOR) days. Dx Kit E11.65 flash 2021-0 Yes [id number] 1{each} Apply 1 [facility] glucose 9-17 Each to ity of sensor 00:00: skin every [place] (FREESTYLE 00 14 Medical PACO 14 (fourteen) Branc h DAY SENSOR) days. Dx Kit E11.65 flash 2021-0 Yes [id number] 1{each} Apply 1 [facility] glucose 9-17 Each to ity of sensor 00:00: skin every [place] (FREESTYLE 00 14 Medical PACO 14 (fourteen) Branc h DAY SENSOR) days. Dx Kit E11.65 flash 2022-0 Yes [id number] 1{each} Apply 1 [facility] glucose 9-17 Each to ity of sensor 00:00: skin every [place] (FREESTYLE 00 14 Medical PACO 14 (fourteen) Branc h DAY SENSOR) days. Dx Kit E11.65 flash 0 Yes [id number] 1{each} Apply 1 [facility] glucose 9-17 Each to ity of sensor 00:00: skin every (FREESTYLE 00 14 Medical PACO 14 (fourteen) Branc h DAY SENSOR) days. Dx Kit E11.65 flash 0 Yes [id number] 1{each} Apply 1 [facility] glucose 9-17 Each to ity of sensor 00:00: skin every (FREESTYLE 00 14 Medical PACO 14 (fourteen) Branc h DAY SENSOR) days. Dx Kit E11.65 flash 0 Yes [id number] 1{each} Apply 1 [facility] glucose 9-17 Each to ity of sensor 00:00: skin every (FREESTYLE 00 14 Medical PACO 14 (fourteen) Branc h DAY SENSOR) days. Dx Kit E11.65 flash 0 Yes [id number] 1{each} Apply 1 [facility] glucose 9-17 Each to ity of sensor 00:00: skin every (FREESTYLE 00 14 Medical PACO 14 (fourteen) Branc h DAY SENSOR) days. Dx Kit E11.65 flash 0 Yes [id number] 1{each} Apply 1 [facility] glucose 9-17 Each to ity of sensor 00:00: skin every (FREESTYLE 00 14 Medical PACO 14 (fourteen) Branc h DAY SENSOR) days. Dx Kit E11.65 flash 0 Yes [id number] 1{each} Apply 1 [facility] glucose 9-17 Each to ity of sensor 00:00: skin every [place] (FREESTYLE 00 14 Medical PACO 14 (fourteen) Branc h DAY SENSOR) days. Dx Kit E11.65 flash 2021-0 Yes [id number] 1{each} Apply 1 [facility] glucose 9-17 Each to ity of sensor 00:00: skin every [place] (FREESTYLE 00 14 Medical PACO 14 (fourteen) Branc h DAY SENSOR) days. Dx Kit E11.65 flash 0 Yes [id number] 1{each} Apply 1 [facility] glucose 9-17 Each to ity of sensor 00:00: skin every [place] (FREESTYLE 00 14 Medical PACO 14 (fourteen) Branc h DAY SENSOR) days. Dx Kit E11.65 flash 2021-0 Yes [id number] 1{each} Apply 1 [facility] glucose 9-17 Each to ity of sensor 00:00: skin every [place] (FREESTYLE 00 14 Medical PACO 14 (fourteen) Branc h DAY SENSOR) days. Dx Kit E11.65 flash 2021-0 Yes [id number] 1{each} Apply 1 Un [facility] glucose 9-17 Each to ity of sensor 00:00: skin every [place] (FREESTYLE 00 14 Medical PACO 14 (fourteen) Branc h DAY SENSOR) days. Dx Kit E11.65 flash 2021-0 Yes [id number] 1{each} Apply 1 [facility] glucose 9-17 Each to ity of sensor 00:00: skin every [place] (FREESTYLE 00 14 Medical PACO 14 (fourteen) Branc h DAY SENSOR) days. Dx Kit E11.65 flash 2021-0 Yes [id number] 1{each} Apply 1 [facility] glucose 9-17 Each to ity of sensor 00:00: skin every [place] (FREESTYLE 00 14 Medical PACO 14 (fourteen) Branc h DAY SENSOR) days. Dx Kit E11.65 flash 2021-0 Yes [id number] 1{each} Apply 1 [facility] glucose 9-17 Each to ity of sensor 00:00: skin every (FREESTYLE 00 14 Medical PACO 14 (fourteen) Branc h DAY SENSOR) days. Dx Kit E11.65 flash 2021-0 Yes [id number] 1{each} Apply 1 [facility] [place] glucose 9-17 Each to ity of sensor 00:00: skin every [place] (FREESTYLE 00 14 Medical PACO 14 (fourteen) Branc h DAY SENSOR) days. Dx Kit E11.65 flash 2021-0 Yes [id number] 1{each} Apply 1 [facility] glucose 9-17 Each to ity of sensor 00:00: skin every [place] (FREESTYLE 00 14 Medical PACO 14 (fourteen) Branc h DAY SENSOR) days. Dx Kit E11.65 flash 2021-0 Yes [id number] 1{each} Apply 1 [facility] glucose 9-17 Each to ity of sensor 00:00: skin every [place] (FREESTYLE 00 14 Medical PACO 14 (fourteen) Branc h DAY SENSOR) days. Dx Kit E11.65 flash 202-0 Yes [id number] 1{each} Apply 1 [facility] glucose 9-17 Each to ity of sensor 00:00: skin every [place] (FREESTYLE 00 14 Medical PACO 14 (fourteen) Branc h DAY SENSOR) days. Dx Kit E11.65 flash 2021-0 Yes [id number] 1{each} Apply 1 [facility] glucose 9-17 Each to ity of sensor 00:00: skin every [place] (FREESTYLE 00 14 Medical PACO 14 (fourteen) Branc h DAY SENSOR) days. Dx Kit E11.65 flash 2021-0 Yes [id number] 1{each} Apply 1 [facility] glucose 9-17 Each to ity of sensor 00:00: skin every [place] (FREESTYLE 00 14 Medical PACO 14 (fourteen) Branc h DAY SENSOR) days. Dx Kit E11.65 flash 2021-0 Yes [id number] 1{each} Apply 1 [facility] [place] glucose 9-17 Each to ity of sensor 00:00: skin every (FREESTYLE 00 14 Medical PACO 14 (fourteen) Branc h DAY SENSOR) days. Dx Kit E11.65 flash 2021-0 Yes [id number] 1{each} Apply 1 [facility] [place] glucose 9-17 Each to ity of sensor 00:00: skin every [place] (FREESTYLE 00 14 Medical PACO 14 (fourteen) Branc h DAY SENSOR) days. Dx Kit E11.65 flash 2021-0 Yes [id number] 1{each} Apply 1 [facility] glucose 9-17 Each to ity of sensor 00:00: skin every [place] (FREESTYLE 00 14 Medical PACO 14 (fourteen) Branc h DAY SENSOR) days. Dx Kit E11.65 flash 2021-0 Yes [id number] 1{each} Apply 1 [facility] [place] glucose 9-17 Each to ity of sensor 00:00: skin every [place] (FREESTYLE 00 14 Medical PACO 14 (fourteen) Branc h DAY SENSOR) days. Dx Kit E11.65 flash 202-0 Yes [id number] 1{each} Apply 1 [facility] glucose 9-17 Each to ity of sensor 00:00: skin every [place] (FREESTYLE 00 14 Medical PACO 14 (fourteen) Branc h DAY SENSOR) days. Dx Kit E11.65 flash 2021-0 Yes [id number] 1{each} Apply 1 [facility] [place] glucose 9-17 Each to ity of sensor 00:00: skin every [place] (FREESTYLE 00 14 Medical PACO 14 (fourteen) Branc h DAY SENSOR) days. Dx Kit E11.65 flash 2021-0 Yes [id number] 1{each} Apply 1 [facility] [place] glucose 9-17 Each to ity of sensor 00:00: skin every [place] (FREESTYLE 00 14 Medical PACO 14 (fourteen) Branc h DAY SENSOR) days. Dx Kit E11.65 flash 2021-0 Yes [id number] 1{each} Apply 1 [facility] [place] glucose 9-17 Each to ity of sensor 00:00: skin every (FREESTYLE 00 14 Medical PACO 14 (fourteen) Branc h DAY SENSOR) days. Dx Kit E11.65 flash 2021-0 Yes [id number] 1{each} Apply 1 [facility] [place] glucose 9-17 Each to ity of sensor 00:00: skin every (FREESTYLE 00 14 Medical PACO 14 (fourteen) Branc h DAY SENSOR) days. Dx Kit E11.65 flash 2021-0 Yes [id number] 1{each} Apply 1 [facility] [place] glucose 9-17 Each to ity of sensor 00:00: skin every (FREESTYLE 00 14 Medical PACO 14 (fourteen) Branc h DAY SENSOR) days. Dx Kit E11.65 flash 2021-0 Yes [id number] 1{each} Apply 1 [facility] [place] glucose 9-17 Each to ity of sensor 00:00: skin every [place] (FREESTYLE 00 14 Medical PACO 14 (fourteen) Branc h DAY SENSOR) days. Dx Kit E11.65 flash 2021-0 Yes [id number] 1{each} Apply 1 [facility] [place] glucose 9-17 Each to ity of sensor 00:00: skin every [place] (FREESTYLE 00 14 Medical PACO 14 (fourteen) Branc h DAY SENSOR) days. Dx Kit E11.65 flash 2021-0 Yes [id number] 1{each} Apply 1 [facility] [place] glucose 9-17 Each to ity of sensor 00:00: skin every [place] (FREESTYLE 00 14 Medical PACO 14 (fourteen) Branc h DAY SENSOR) days. Dx Kit E11.65 flash 0 Yes [id number] 1{each} Apply 1 [facility] [place] glucose 9-17 Each to ity of sensor 00:00: skin every (FREESTYLE 00 14 Medical PACO 14 (fourteen) Branc h DAY SENSOR) days. Dx Kit E11.65 flash 0 Yes [id number] 1{each} Apply 1 [facility] [place] glucose 9-17 Each to ity of sensor 00:00: skin every (FREESTYLE 00 14 Medical PACO 14 (fourteen) Branc h DAY SENSOR) days. Dx Kit E11.65 flash 0 Yes [id number] 1{each} Apply 1 [facility] [place] glucose 9-17 Each to ity of sensor 00:00: skin every (FREESTYLE 00 14 Medical PACO 14 (fourteen) Branc h DAY SENSOR) days. Dx Kit E11.65 flash 0 Yes [id number] 1{each} Apply 1 [facility] [place] glucose 9-17 Each to ity of sensor 00:00: skin every (FREESTYLE 00 14 Medical PACO 14 (fourteen) Branc h DAY SENSOR) days. Dx Kit E11.65 flash 0 Yes [id number] 1{each} Apply 1 [facility] [place] glucose 9-17 Each to ity of sensor 00:00: skin every (FREESTYLE 00 14 Medical PACO 14 (fourteen) Branc h DAY SENSOR) days. Dx Kit E11.65 flash 0 Yes [id number] 1{each} Apply 1 [facility] [place] glucose 9-17 Each to ity of sensor 00:00: skin every (FREESTYLE 00 14 Medical PACO 14 (fourteen) Branc h DAY SENSOR) days. Dx Kit E11.65 flash 0 3- No [id number] 1{each} Apply 1 [facility] glucose 9-17 03-12 Each to ity of sensor 00:00: 00:00 [place] (FREESTYLE 00 :00 14 Medical PACO 14 (fourteen) Branc h DAY SENSOR) days. Dx Kit E11.65 omeprazole Yes [id number] TAKE 1 [facility] 40 mg 8-16 CAPSULE BY ity of capsule 00:00: MOUTH [place] 00 EVERY DAY Medical 30 MINUTES Branch BEFORE BREAKFAST omeprazole Yes [id number] TAKE 1 [facility] 40 mg 8-16 CAPSULE BY ity of capsule 00:00: MOUTH [place] 00 EVERY DAY Medical 30 MINUTES Branch BEFORE BREAKFAST omeprazole 2-0 Yes [id number] TAKE 1 [facility] 40 mg 8-16 CAPSULE BY ity of capsule 00:00: MOUTH [place] 00 EVERY DAY Medical 30 MINUTES Branch BEFORE BREAKFAST omeprazole 2-0 Yes [id number] TAKE 1 [facility] 40 mg 8-16 CAPSULE BY ity of capsule 00:00: MOUTH [place] 00 EVERY DAY Medical 30 MINUTES Branch BEFORE BREAKFAST omeprazole 2-0 Yes [id number] TAKE 1 [facility] 40 mg 8-16 CAPSULE BY ity of capsule 00:00: MOUTH [place] 00 EVERY DAY Medical 30 MINUTES Branch BEFORE BREAKFAST omeprazole 2-0 Yes [id number] TAKE 1 [facility] 40 mg 8-16 CAPSULE BY ity of capsule 00:00: MOUTH [place] 00 EVERY DAY Medical 30 MINUTES Branch BEFORE BREAKFAST omeprazole 2-0 Yes [id number] TAKE 1 [facility] 40 mg 8-16 CAPSULE BY ity of capsule 00:00: MOUTH [place] 00 EVERY DAY Medical 30 MINUTES Branch BEFORE BREAKFAST omeprazole 2-0 Yes [id number] TAKE 1 [facility] 40 mg 8-16 CAPSULE BY ity of capsule 00:00: MOUTH [place] 00 EVERY DAY Medical 30 MINUTES Branch BEFORE BREAKFAST omeprazole 2-0 Yes [id number] TAKE 1 [facility] 40 mg 8-16 CAPSULE BY ity of capsule 00:00: MOUTH [place] 00 EVERY DAY Medical 30 MINUTES Branch BEFORE BREAKFAST omeprazole 2-0 Yes [id number] TAKE 1 [facility] 40 mg 8-16 CAPSULE BY ity of capsule 00:00: MOUTH [place] 00 EVERY DAY Medical 30 MINUTES Branch BEFORE BREAKFAST omeprazole 2-0 Yes [id number] TAKE 1 [facility] 40 mg 8-16 CAPSULE BY ity of capsule 00:00: MOUTH [place] 00 EVERY DAY Medical 30 MINUTES Branch BEFORE BREAKFAST omeprazole 2-0 Yes [id number] TAKE 1 [facility] 40 mg 8-16 CAPSULE BY ity of capsule 00:00: MOUTH [place] 00 EVERY DAY Medical 30 MINUTES Branch BEFORE BREAKFAST omeprazole 2-0 Yes [id number] TAKE 1 [facility] 40 mg 8-16 CAPSULE BY ity of capsule 00:00: MOUTH [place] 00 EVERY DAY Medical 30 MINUTES Branch BEFORE BREAKFAST omeprazole 2-0 Yes [id number] TAKE 1 [facility] 40 mg 8-16 CAPSULE BY ity of capsule 00:00: MOUTH [place] 00 EVERY DAY Medical 30 MINUTES Branch BEFORE BREAKFAST omeprazole 2-0 Yes [id number] TAKE 1 [facility] 40 mg 8-16 CAPSULE BY ity of capsule 00:00: MOUTH [place] 00 EVERY DAY Medical 30 MINUTES Branch BEFORE BREAKFAST omeprazole 2-0 Yes [id number] TAKE 1 [facility] 40 mg 8-16 CAPSULE BY ity of capsule 00:00: MOUTH [place] 00 EVERY DAY Medical 30 MINUTES Branch BEFORE BREAKFAST omeprazole 2-0 Yes [id number] TAKE 1 [facility] 40 mg 8-16 CAPSULE BY ity of capsule 00:00: MOUTH [place] 00 EVERY DAY Medical 30 MINUTES Branch BEFORE BREAKFAST omeprazole 2-0 Yes [id number] TAKE 1 [facility] 40 mg 8-16 CAPSULE BY ity of capsule 00:00: MOUTH [place] 00 EVERY DAY Medical 30 MINUTES Branch BEFORE BREAKFAST omeprazole 2-0 Yes [id number] TAKE 1 [facility] 40 mg 8-16 CAPSULE BY ity of capsule 00:00: MOUTH [place] 00 EVERY DAY Medical 30 MINUTES Branch BEFORE BREAKFAST omeprazole 2-0 Yes [id number] TAKE 1 [facility] 40 mg 8-16 CAPSULE BY ity of capsule 00:00: MOUTH [place] 00 EVERY DAY Medical 30 MINUTES Branch BEFORE BREAKFAST omeprazole 2-0 Yes [id number] TAKE 1 [facility] 40 mg 8-16 CAPSULE BY ity of capsule 00:00: MOUTH [place] 00 EVERY DAY Medical 30 MINUTES Branch BEFORE BREAKFAST omeprazole 2-0 Yes [id number] TAKE 1 [facility] 40 mg 8-16 CAPSULE BY ity of capsule 00:00: MOUTH [place] 00 EVERY DAY Medical 30 MINUTES Branch BEFORE BREAKFAST omeprazole 2-0 Yes [id number] TAKE 1 [facility] 40 mg 8-16 CAPSULE BY ity of capsule 00:00: MOUTH [place] 00 EVERY DAY Medical 30 MINUTES Branch BEFORE BREAKFAST omeprazole 2-0 Yes [id number] TAKE 1 [facility] 40 mg 8-16 CAPSULE BY ity of capsule 00:00: MOUTH [place] 00 EVERY DAY Medical 30 MINUTES Branch BEFORE BREAKFAST omeprazole 2-0 Yes [id number] TAKE 1 [facility] 40 mg 8-16 CAPSULE BY ity of capsule 00:00: MOUTH [place] 00 EVERY DAY Medical 30 MINUTES Branch BEFORE BREAKFAST omeprazole 2-0 Yes [id number] TAKE 1 [facility] 40 mg 8-16 CAPSULE BY ity of capsule 00:00: MOUTH [place] 00 EVERY DAY Medical 30 MINUTES Branch BEFORE BREAKFAST omeprazole 2-0 Yes [id number] TAKE 1 [facility] 40 mg 8-16 CAPSULE BY ity of capsule 00:00: MOUTH [place] 00 EVERY DAY Medical 30 MINUTES Branch BEFORE BREAKFAST omeprazole 2-0 Yes [id number] TAKE 1 [facility] 40 mg 8-16 CAPSULE BY ity of capsule 00:00: MOUTH [place] 00 EVERY DAY Medical 30 MINUTES Branch BEFORE BREAKFAST omeprazole 2-0 Yes [id number] TAKE 1 [facility] 40 mg 8-16 CAPSULE BY ity of capsule 00:00: MOUTH [place] 00 EVERY DAY Medical 30 MINUTES Branch BEFORE BREAKFAST omeprazole 2-0 Yes [id number] TAKE 1 [facility] 40 mg 8-16 CAPSULE BY ity of capsule 00:00: MOUTH [place] 00 EVERY DAY Medical 30 MINUTES Branch BEFORE BREAKFAST omeprazole 2-0 Yes [id number] TAKE 1 [facility] 40 mg 8-16 CAPSULE BY ity of capsule 00:00: MOUTH [place] 00 EVERY DAY Medical 30 MINUTES Branch BEFORE BREAKFAST omeprazole 2-0 Yes [id number] TAKE 1 [facility] 40 mg 8-16 CAPSULE BY ity of capsule 00:00: MOUTH [place] 00 EVERY DAY Medical 30 MINUTES Branch BEFORE BREAKFAST omeprazole 2-0 Yes [id number] TAKE 1 [facility] 40 mg 8-16 CAPSULE BY ity of capsule 00:00: MOUTH [place] 00 EVERY DAY Medical 30 MINUTES Branch BEFORE BREAKFAST omeprazole 2-0 Yes [id number] TAKE 1 [facility] 40 mg 8-16 CAPSULE BY ity of capsule 00:00: MOUTH [place] 00 EVERY DAY Medical 30 MINUTES Branch BEFORE BREAKFAST omeprazole 2-0 Yes [id number] TAKE 1 [facility] 40 mg 8-16 CAPSULE BY ity of capsule 00:00: MOUTH [place] 00 EVERY DAY Medical 30 MINUTES Branch BEFORE BREAKFAST omeprazole 2-0 Yes [id number] TAKE 1 [facility] 40 mg 8-16 CAPSULE BY ity of capsule 00:00: MOUTH [place] 00 EVERY DAY Medical 30 MINUTES Branch BEFORE BREAKFAST omeprazole 2-0 Yes [id number] TAKE 1 [facility] 40 mg 8-16 CAPSULE BY ity of capsule 00:00: MOUTH [place] 00 EVERY DAY Medical 30 MINUTES Branch BEFORE BREAKFAST omeprazole 2-0 Yes [id number] TAKE 1 [facility] 40 mg 8-16 CAPSULE BY ity of capsule 00:00: MOUTH [place] 00 EVERY DAY Medical 30 MINUTES Branch BEFORE BREAKFAST omeprazole 2-0 Yes [id number] TAKE 1 [facility] 40 mg 8-16 CAPSULE BY ity of capsule 00:00: MOUTH [place] 00 EVERY DAY Medical 30 MINUTES Branch BEFORE BREAKFAST omeprazole 2-0 Yes [id number] TAKE 1 [facility] 40 mg 8-16 CAPSULE BY ity of capsule 00:00: MOUTH [place] 00 EVERY DAY Medical 30 MINUTES Branch BEFORE BREAKFAST omeprazole 2-0 Yes [id number] TAKE 1 [facility] 40 mg 8-16 CAPSULE BY ity of capsule 00:00: MOUTH [place] 00 EVERY DAY Medical 30 MINUTES Branch BEFORE BREAKFAST omeprazole 2-0 Yes [id number] TAKE 1 [facility] 40 mg 8-16 CAPSULE BY ity of capsule 00:00: MOUTH [place] 00 EVERY DAY Medical 30 MINUTES Branch BEFORE BREAKFAST omeprazole 2-0 Yes [id number] TAKE 1 [facility] 40 mg 8-16 CAPSULE BY ity of capsule 00:00: MOUTH [place] 00 EVERY DAY Medical 30 MINUTES Branch BEFORE BREAKFAST omeprazole 2-0 Yes [id number] TAKE 1 [facility] 40 mg 8-16 CAPSULE BY ity of capsule 00:00: MOUTH [place] 00 EVERY DAY Medical 30 MINUTES Branch BEFORE BREAKFAST omeprazole 2-0 Yes [id number] TAKE 1 [facility] 40 mg 8-16 CAPSULE BY ity of capsule 00:00: MOUTH [place] 00 EVERY DAY Medical 30 MINUTES Branch BEFORE BREAKFAST omeprazole 2-0 Yes [id number] TAKE 1 [facility] 40 mg 8-16 CAPSULE BY ity of capsule 00:00: MOUTH [place] 00 EVERY DAY Medical 30 MINUTES Branch BEFORE BREAKFAST omeprazole 2-0 Yes [id number] TAKE 1 [facility] 40 mg 8-16 CAPSULE BY ity of capsule 00:00: MOUTH [place] 00 EVERY DAY Medical 30 MINUTES Branch BEFORE BREAKFAST omeprazole 2-0 Yes [id number] TAKE 1 [facility] 40 mg 8-16 CAPSULE BY ity of capsule 00:00: MOUTH [place] 00 EVERY DAY Medical 30 MINUTES Branch BEFORE BREAKFAST omeprazole 2-0 Yes [id number] TAKE 1 [facility] 40 mg 8-16 CAPSULE BY ity of capsule 00:00: MOUTH [place] 00 EVERY DAY Medical 30 MINUTES Branch BEFORE BREAKFAST omeprazole 2-0 Yes [id number] TAKE 1 [facility] 40 mg 8-16 CAPSULE BY ity of capsule 00:00: MOUTH [place] 00 EVERY DAY Medical 30 MINUTES Branch BEFORE BREAKFAST omeprazole 2-0 Yes [id number] TAKE 1 [facility] 40 mg 8-16 CAPSULE BY ity of capsule 00:00: MOUTH [place] 00 EVERY DAY Medical 30 MINUTES Branch BEFORE BREAKFAST omeprazole 2-0 Yes [id number] TAKE 1 [facility] 40 mg 8-16 CAPSULE BY ity of capsule 00:00: MOUTH [place] 00 EVERY DAY Medical 30 MINUTES Branch BEFORE BREAKFAST omeprazole 2-0 Yes [id number] TAKE 1 [facility] 40 mg 8-16 CAPSULE BY ity of capsule 00:00: MOUTH [place] 00 EVERY DAY Medical 30 MINUTES Branch BEFORE BREAKFAST omeprazole 2-0 Yes [id number] TAKE 1 [facility] 40 mg 8-16 CAPSULE BY ity of capsule 00:00: MOUTH [place] 00 EVERY DAY Medical 30 MINUTES Branch BEFORE BREAKFAST omeprazole 2-0 Yes [id number] TAKE 1 [facility] 40 mg 8-16 CAPSULE BY ity of capsule 00:00: MOUTH [place] 00 EVERY DAY Medical 30 MINUTES Branch BEFORE BREAKFAST omeprazole 2-0 Yes [id number] TAKE 1 [facility] 40 mg 8-16 CAPSULE BY ity of capsule 00:00: MOUTH [place] 00 EVERY DAY Medical 30 MINUTES Branch BEFORE BREAKFAST omeprazole 2-0 Yes [id number] TAKE 1 [facility] 40 mg 8-16 CAPSULE BY ity of capsule 00:00: MOUTH [place] 00 EVERY DAY Medical 30 MINUTES Branch BEFORE BREAKFAST omeprazole 2-0 Yes [id number] TAKE 1 [facility] 40 mg 8-16 CAPSULE BY ity of capsule 00:00: MOUTH [place] 00 EVERY DAY Medical 30 MINUTES Branch BEFORE BREAKFAST omeprazole 2-0 Yes [id number] TAKE 1 [facility] 40 mg 8-16 CAPSULE BY ity of capsule 00:00: MOUTH [place] 00 EVERY DAY Medical 30 MINUTES Branch BEFORE BREAKFAST omeprazole 2-0 Yes [id number] TAKE 1 [facility] 40 mg 8-16 CAPSULE BY ity of capsule 00:00: MOUTH [place] 00 EVERY DAY Medical 30 MINUTES Branch BEFORE BREAKFAST omeprazole 2-0 Yes [id number] TAKE 1 [facility] 40 mg 8-16 CAPSULE BY ity of capsule 00:00: MOUTH [place] 00 EVERY DAY Medical 30 MINUTES Branch BEFORE BREAKFAST omeprazole 2-0 Yes [id number] TAKE 1 [facility] 40 mg 8-16 CAPSULE BY ity of capsule 00:00: MOUTH [place] 00 EVERY DAY Medical 30 MINUTES Branch BEFORE BREAKFAST omeprazole 2-0 Yes [id number] TAKE 1 [facility] 40 mg 8-16 CAPSULE BY ity of capsule 00:00: MOUTH [place] 00 EVERY DAY Medical 30 MINUTES Branch BEFORE BREAKFAST omeprazole 2-0 Yes [id number] TAKE 1 [facility] 40 mg 8-16 CAPSULE BY ity of capsule 00:00: MOUTH [place] 00 EVERY DAY Medical 30 MINUTES Branch BEFORE BREAKFAST omeprazole 2-0 Yes [id number] TAKE 1 [facility] 40 mg 8-16 CAPSULE BY ity of capsule 00:00: MOUTH [place] 00 EVERY DAY Medical 30 MINUTES Branch BEFORE BREAKFAST omeprazole 2-0 Yes [id number] TAKE 1 [facility] 40 mg 8-16 CAPSULE BY ity of capsule 00:00: MOUTH [place] 00 EVERY DAY Medical 30 MINUTES Branch BEFORE BREAKFAST omeprazole 2-0 Yes [id number] TAKE 1 [facility] 40 mg 8-16 CAPSULE BY ity of capsule 00:00: MOUTH [place] 00 EVERY DAY Medical 30 MINUTES Branch BEFORE BREAKFAST omeprazole 2-0 Yes [id number] TAKE 1 [facility] 40 mg 8-16 CAPSULE BY ity of capsule 00:00: MOUTH [place] 00 EVERY DAY Medical 30 MINUTES Branch BEFORE BREAKFAST omeprazole 2-0 Yes [id number] TAKE 1 [facility] 40 mg 8-16 CAPSULE BY ity of capsule 00:00: MOUTH [place] 00 EVERY DAY Medical 30 MINUTES Branch BEFORE BREAKFAST omeprazole 2-0 Yes [id number] TAKE 1 [facility] 40 mg 8-16 CAPSULE BY ity of capsule 00:00: MOUTH [place] 00 EVERY DAY Medical 30 MINUTES Branch BEFORE BREAKFAST omeprazole 2-0 Yes [id number] TAKE 1 [facility] 40 mg 8-16 CAPSULE BY ity of capsule 00:00: MOUTH [place] 00 EVERY DAY Medical 30 MINUTES Branch BEFORE BREAKFAST omeprazole 2-0 Yes [id number] TAKE 1 [facility] 40 mg 8-16 CAPSULE BY ity of capsule 00:00: MOUTH [place] 00 EVERY DAY Medical 30 MINUTES Branch BEFORE BREAKFAST omeprazole 2-0 Yes [id number] TAKE 1 [facility] 40 mg 8-16 CAPSULE BY ity of capsule 00:00: MOUTH [place] 00 EVERY DAY Medical 30 MINUTES Branch BEFORE BREAKFAST omeprazole 2-0 Yes [id number] TAKE 1 [facility] 40 mg 8-16 CAPSULE BY ity of capsule 00:00: MOUTH [place] 00 EVERY DAY Medical 30 MINUTES Branch BEFORE BREAKFAST omeprazole 2-0 Yes [id number] TAKE 1 [facility] 40 mg 8-16 CAPSULE BY ity of capsule 00:00: MOUTH [place] 00 EVERY DAY Medical 30 MINUTES Branch BEFORE BREAKFAST omeprazole 2-0 Yes [id number] TAKE 1 [facility] 40 mg 8-16 CAPSULE BY ity of capsule 00:00: MOUTH [place] 00 EVERY DAY Medical 30 MINUTES Branch BEFORE BREAKFAST omeprazole 2-0 Yes [id number] TAKE 1 [facility] 40 mg 8-16 CAPSULE BY ity of capsule 00:00: MOUTH [place] 00 EVERY DAY Medical 30 MINUTES Branch BEFORE BREAKFAST omeprazole 2-0 Yes [id number] TAKE 1 [facility] 40 mg 8-16 CAPSULE BY ity of capsule 00:00: MOUTH [place] 00 EVERY DAY Medical 30 MINUTES Branch BEFORE BREAKFAST omeprazole 2-0 Yes [id number] TAKE 1 [facility] 40 mg 8-16 CAPSULE BY ity of capsule 00:00: MOUTH [place] 00 EVERY DAY Medical 30 MINUTES Branch BEFORE BREAKFAST omeprazole 2-0 Yes [id number] TAKE 1 [facility] 40 mg 8-16 CAPSULE BY ity of capsule 00:00: MOUTH [place] 00 EVERY DAY Medical 30 MINUTES Branch BEFORE BREAKFAST omeprazole 2-0 Yes [id number] TAKE 1 [facility] 40 mg 8-16 CAPSULE BY ity of capsule 00:00: MOUTH [place] 00 EVERY DAY Medical 30 MINUTES Branch BEFORE BREAKFAST omeprazole 2-0 Yes [id number] TAKE 1 [facility] 40 mg 8-16 CAPSULE BY ity of capsule 00:00: MOUTH [place] 00 EVERY DAY Medical 30 MINUTES Branch BEFORE BREAKFAST omeprazole 2-0 Yes [id number] TAKE 1 [facility] 40 mg 8-16 CAPSULE BY ity of capsule 00:00: MOUTH [place] 00 EVERY DAY Medical 30 MINUTES Branch BEFORE BREAKFAST omeprazole 2-0 Yes [id number] TAKE 1 [facility] 40 mg 8-16 CAPSULE BY ity of capsule 00:00: MOUTH [place] 00 EVERY DAY Medical 30 MINUTES Branch BEFORE BREAKFAST omeprazole 2-0 Yes [id number] TAKE 1 [facility] 40 mg 8-16 CAPSULE BY ity of capsule 00:00: MOUTH [place] 00 EVERY DAY Medical 30 MINUTES Branch BEFORE BREAKFAST omeprazole 2-0 Yes [id number] TAKE 1 [facility] 40 mg 8-16 CAPSULE BY ity of capsule 00:00: MOUTH [place] 00 EVERY DAY Medical 30 MINUTES Branch BEFORE BREAKFAST omeprazole 2-0 Yes [id number] TAKE 1 [facility] 40 mg 8-16 CAPSULE BY ity of capsule 00:00: MOUTH [place] 00 EVERY DAY Medical 30 MINUTES Branch BEFORE BREAKFAST omeprazole 2-0 Yes [id number] TAKE 1 [facility] 40 mg 8-16 CAPSULE BY ity of capsule 00:00: MOUTH [place] 00 EVERY DAY Medical 30 MINUTES Branch BEFORE BREAKFAST omeprazole 2-0 Yes [id number] TAKE 1 [facility] 40 mg 8-16 CAPSULE BY ity of capsule 00:00: MOUTH [place] 00 EVERY DAY Medical 30 MINUTES Branch BEFORE BREAKFAST omeprazole 2-0 Yes [id number] TAKE 1 [facility] 40 mg 8-16 CAPSULE BY ity of capsule 00:00: MOUTH [place] 00 EVERY DAY Medical 30 MINUTES Branch BEFORE BREAKFAST omeprazole 2-0 Yes [id number] TAKE 1 [facility] 40 mg 8-16 CAPSULE BY ity of capsule 00:00: MOUTH [place] 00 EVERY DAY Medical 30 MINUTES Branch BEFORE BREAKFAST omeprazole 2-0 Yes [id number] TAKE 1 [facility] 40 mg 8-16 CAPSULE BY ity of capsule 00:00: MOUTH [place] 00 EVERY DAY Medical 30 MINUTES Branch BEFORE BREAKFAST omeprazole 2-0 Yes [id number] TAKE 1 [facility] 40 mg 8-16 CAPSULE BY ity of capsule 00:00: MOUTH [place] 00 EVERY DAY Medical 30 MINUTES Branch BEFORE BREAKFAST omeprazole 2-0 Yes [id number] TAKE 1 [facility] 40 mg 8-16 CAPSULE BY ity of capsule 00:00: MOUTH [place] 00 EVERY DAY Medical 30 MINUTES Branch BEFORE BREAKFAST omeprazole 2-0 Yes [id number] TAKE 1 [facility] 40 mg 8-16 CAPSULE BY ity of capsule 00:00: MOUTH [place] 00 EVERY DAY Medical 30 MINUTES Branch BEFORE BREAKFAST omeprazole 2-0 Yes [id number] TAKE 1 [facility] 40 mg 8-16 CAPSULE BY ity of capsule 00:00: MOUTH [place] 00 EVERY DAY Medical 30 MINUTES Branch BEFORE BREAKFAST omeprazole 2-0 Yes [id number] TAKE 1 [facility] 40 mg 8-16 CAPSULE BY ity of capsule 00:00: MOUTH [place] 00 EVERY DAY Medical 30 MINUTES Branch BEFORE BREAKFAST omeprazole 2-0 Yes [id number] TAKE 1 [facility] 40 mg 8-16 CAPSULE BY ity of capsule 00:00: MOUTH [place] 00 EVERY DAY Medical 30 MINUTES Branch BEFORE BREAKFAST omeprazole 2-0 Yes [id number] TAKE 1 [facility] 40 mg 8-16 CAPSULE BY ity of capsule 00:00: MOUTH [place] 00 EVERY DAY Medical 30 MINUTES Branch BEFORE BREAKFAST omeprazole 2-0 Yes [id number] TAKE 1 [facility] 40 mg 8-16 CAPSULE BY ity of capsule 00:00: MOUTH [place] 00 EVERY DAY Medical 30 MINUTES Branch BEFORE BREAKFAST omeprazole 2-0 Yes [id number] TAKE 1 [facility] 40 mg 8-16 CAPSULE BY ity of capsule 00:00: MOUTH [place] 00 EVERY DAY Medical 30 MINUTES Branch BEFORE BREAKFAST omeprazole 2-0 Yes [id number] TAKE 1 [facility] 40 mg 8-16 CAPSULE BY ity of capsule 00:00: MOUTH [place] 00 EVERY DAY Medical 30 MINUTES Branch BEFORE BREAKFAST omeprazole 2021-0 Yes [id number] TAKE 1 [facility] 40 mg 8-16 CAPSULE BY ity of capsule 00:00: MOUTH [place] 00 EVERY DAY Medical 30 MINUTES Branch BEFORE BREAKFAST omeprazole 2021-0 Yes [id number] TAKE 1 [facility] 40 mg 8-16 CAPSULE BY ity of capsule 00:00: MOUTH [place] 00 EVERY DAY Medical 30 MINUTES Branch BEFORE BREAKFAST omeprazole 2021-0 Yes [id number] TAKE 1 [facility] 40 mg 8-16 CAPSULE BY ity of capsule 00:00: MOUTH [place] 00 EVERY DAY Medical 30 MINUTES Branch BEFORE BREAKFAST omeprazole 0 Yes [id number] TAKE 1 [facility] 40 mg 8-16 CAPSULE BY ity of capsule 00:00: MOUTH [place] 00 EVERY DAY Medical 30 MINUTES Branch BEFORE BREAKFAST Insulin Yes [id number] inject 44 U nivers Glargine 8-11 Units ity of ([facility] 00:00: under the [facility] as KWIKPEN 00 skin at Medical U-100 bedtime. Branch INSULIN) E11.65 100 unit/mL (3 mL) injection insulin Yes [id number] ADMINISTER [facility] aspart 8-11 8 TO 14 ity of U-100 100 00:00: UNITS [place] unit/mL (3 00 UNDER THE Medi keily mL) SKIN THREE Branch injection TIMES DAILY insulin Yes [id number] ADMINISTER [facility] aspart 8-11 8 TO 14 ity of U-100 100 00:00: UNITS [place] unit/mL (3 00 UNDER THE Medi keily mL) SKIN THREE Branch injection TIMES DAILY Insulin Yes [id number] inject 44 U nivers Glargine 8-11 Units ity of ([facility] 00:00: under the [facility] as [place]WIK[place] 00 skin at Medical U-100 bedtime. Branch INSULIN) E11.65 100 unit/mL (3 mL) injection insulin Yes [id number] ADMINISTER [facility] aspart 8-11 8 TO 14 ity of U-100 100 00:00: UNITS [place] unit/mL (3 00 UNDER THE Medi keily mL) SKIN THREE Branch injection TIMES DAILY Insulin 0 Yes [id number] inject 44 U nivers Glargine 8-11 Units ity of ([facility] 00:00: under the [facility] [place] 00 skin at Medical U-100 bedtime. Branch INSULIN) E11.65 100 unit/mL (3 mL) injection insulin 0 Yes [id number] ADMINISTER [facility] aspart 8-11 8 TO 14 ity of U-100 100 00:00: UNITS [place] unit/mL (3 00 UNDER THE Medi keily mL) SKIN THREE Branch injection TIMES DAILY Insulin 0 Yes [id number] inject 44 U nivers Glargine 8-11 Units ity of ([facility] 00:00: under the [facility] as [place] 00 skin at Medical U-100 bedtime. Branch INSULIN) E11.65 100 unit/mL (3 mL) injection insulin 0 Yes [id number] ADMINISTER [facility] aspart 8-11 8 TO 14 ity of U-100 100 00:00: UNITS [place] unit/mL (3 00 UNDER THE [facility] mL) SKIN THREE Branch injection TIMES DAILY Insulin Yes [id number] [id number] inject 44 U nivers Glargine 8-11 Units ity of ([facility] 00:00: under the [facility] 00 skin at Medical U-100 bedtime. Branch INSULIN) E11.65 100 unit/mL (3 mL) injection insulin Yes [id number] ADMINISTER [facility] aspart 8-11 8 TO 14 ity of U-100 100 00:00: UNITS [place] unit/mL (3 00 UNDER THE [facility] mL) SKIN THREE Branch injection TIMES DAILY Insulin 0 Yes [id number] 44U inject 44 U nivers Glargine 8-11 Units ity of ([facility] 00:00: under the [facility] 00 skin at Medical U-100 bedtime. Branch INSULIN) E11.65 100 unit/mL (3 mL) injection insulin 0 Yes [id number] ADMINISTER [facility] aspart 8-11 8 TO 14 ity of U-100 100 00:00: UNITS [place] unit/mL (3 00 UNDER THE [facility] mL) SKIN THREE Branch injection TIMES DAILY Insulin 0 Yes [id number] 44U inject 44 U nivers Glargine 8-11 Units ity of ([facility] 00:00: under the [facility] 00 skin at Medical U-100 bedtime. Branch INSULIN) E11.65 100 unit/mL (3 mL) injection insulin Yes [id number] ADMINISTER [facility] aspart 8-11 8 TO 14 ity of U-100 100 00:00: UNITS [place] unit/mL (3 00 UNDER THE [facility] ke[facility] mL) SKIN THREE Branch injection TIMES DAILY Insulin Yes [id number] 44U inject 44 U nivers Glargine 8-11 Units ity of ([facility] 00:00: under the [facility] 00 skin at Medical U-100 bedtime. Branch INSULIN) E11.65 100 unit/mL (3 mL) injection insulin Yes [id number] ADMINISTER [facility] aspart 8-11 8 TO 14 ity of U-100 100 00:00: UNITS [place] unit/mL (3 00 UNDER THE [facility] mL) SKIN THREE Branch injection TIMES DAILY insulin Yes [id number] ADMINISTER [facility] aspart 8-11 8 TO 14 ity of U-100 100 00:00: UNITS [place] unit/mL (3 00 UNDER THE [facility] mL) SKIN THREE Branch injection TIMES DAILY insulin Yes [id number] ADMINISTER [facility] aspart 8-11 8 TO 14 ity of U-100 100 00:00: UNITS [place] unit/mL (3 00 UNDER THE [facility] mL) SKIN THREE Branch injection TIMES DAILY insulin Yes [id number] ADMINISTER [facility] aspart 8-11 8 TO 14 ity of U-100 100 00:00: UNITS [place] unit/mL (3 00 UNDER THE [facility] mL) SKIN THREE Branch injection TIMES DAILY insulin Yes [id number] ADMINISTER [facility] aspart 8-11 8 TO 14 ity of U-100 100 00:00: UNITS [place] unit/mL (3 00 UNDER THE [facility] mL) SKIN THREE Branch injection TIMES DAILY insulin Yes [id number] ADMINISTER [facility] aspart 8-11 8 TO 14 ity of U-100 100 00:00: UNITS [place] unit/mL (3 00 UNDER THE [facility] mL) SKIN THREE Branch injection TIMES DAILY insulin Yes [id number] ADMINISTER [facility] aspart 8-11 8 TO 14 ity of U-100 100 00:00: UNITS [place] unit/mL (3 00 UNDER THE [facility] mL) SKIN THREE Branch injection TIMES DAILY insulin Yes [id number] ADMINISTER [facility] aspart 8-11 8 TO 14 ity of U-100 100 00:00: UNITS [place] unit/mL (3 00 UNDER THE [facility] mL) SKIN THREE Branch injection TIMES DAILY insulin Yes [id number] ADMINISTER [facility] aspart 8-11 8 TO 14 ity of U-100 100 00:00: UNITS [place] unit/mL (3 00 UNDER THE [facility] mL) SKIN THREE Branch injection TIMES DAILY insulin Yes [id number] ADMINISTER [facility] aspart 8-11 8 TO 14 ity of U-100 100 00:00: UNITS [place] unit/mL (3 00 UNDER THE [facility] mL) SKIN THREE Branch injection TIMES DAILY insulin Yes [id number] ADMINISTER [facility] aspart 8-11 8 TO 14 ity of U-100 100 00:00: UNITS [place] unit/mL (3 00 UNDER THE [facility] mL) SKIN THREE Branch injection TIMES DAILY insulin Yes [id number] ADMINISTER [facility] aspart 8-11 8 TO 14 ity of U-100 100 00:00: UNITS [place] unit/mL (3 00 UNDER THE [facility] mL) SKIN THREE Branch injection TIMES DAILY insulin Yes [id number] ADMINISTER [facility] aspart 8-11 8 TO 14 ity of U-100 100 00:00: UNITS [place] unit/mL (3 00 UNDER THE [facility] mL) SKIN THREE Branch injection TIMES DAILY insulin Yes [id number] ADMINISTER [facility] aspart 8-11 8 TO 14 ity of U-100 100 00:00: UNITS [place] unit/mL (3 00 UNDER THE [facility] mL) SKIN THREE Branch injection TIMES DAILY insulin Yes [id number] ADMINISTER [facility] aspart 8-11 8 TO 14 ity of U-100 100 00:00: UNITS [place] unit/mL (3 00 UNDER THE [facility] mL) SKIN THREE Branch injection TIMES DAILY insulin Yes [id number] ADMINISTER [facility] aspart 8-11 8 TO 14 ity of U-100 100 00:00: UNITS [place] unit/mL (3 00 UNDER THE [facility] mL) SKIN THREE Branch injection TIMES DAILY insulin Yes [id number] ADMINISTER [facility] aspart 8-11 8 TO 14 ity of U-100 100 00:00: UNITS [place] unit/mL (3 00 UNDER THE [facility] mL) SKIN THREE Branch injection TIMES DAILY insulin 2021-0 Yes [id number] ADMINISTER [facility] 8-11 8 TO 14 ity of U-100 100 00:00: UNITS [place] unit/mL (3 00 UNDER THE [facility] mL) SKIN THREE Branch injection TIMES DAILY insulin Yes [id number] ADMINISTER [facility] aspart 8-11 8 TO 14 ity of U-100 100 00:00: UNITS [place] unit/mL (3 00 UNDER THE [facility] mL) SKIN THREE Branch injection TIMES DAILY insulin Yes [id number] ADMINISTER [facility] aspart 8-11 8 TO 14 ity of U-100 100 00:00: UNITS [place] unit/mL (3 00 UNDER THE [facility] mL) SKIN THREE Branch injection TIMES DAILY insulin Yes [id number] ADMINISTER [facility] aspart 8-11 8 TO 14 ity of U-100 100 00:00: UNITS [place] unit/mL (3 00 UNDER THE [facility] mL) SKIN THREE Branch injection TIMES DAILY insulin Yes [id number] ADMINISTER [facility] aspart 8-11 8 TO 14 ity of U-100 100 00:00: UNITS [place] unit/mL (3 00 UNDER THE [facility] mL) SKIN THREE Branch injection TIMES DAILY insulin Yes [id number] ADMINISTER [facility] aspart 8-11 8 TO 14 ity of U-100 100 00:00: UNITS [place] unit/mL (3 00 UNDER THE [facility] mL) SKIN THREE Branch injection TIMES DAILY insulin Yes [id number] ADMINISTER [facility] 8-11 8 TO 14 ity of U-100 100 00:00: UNITS [place] unit/mL (3 00 UNDER THE [facility] mL) SKIN THREE Branch injection TIMES DAILY insulin Yes [id number] ADMINISTER [facility] 8-11 8 TO 14 ity of U-100 100 00:00: UNITS [place] unit/mL (3 00 UNDER THE [facility] mL) SKIN THREE Branch injection TIMES DAILY insulin Yes [id number] ADMINISTER [facility] 8-11 8 TO 14 ity of U-100 100 00:00: UNITS [place] unit/mL (3 00 UNDER THE [facility] mL) SKIN THREE Branch injection TIMES DAILY insulin Yes [id number] ADMINISTER [facility] aspart 8-11 8 TO 14 ity of U-100 100 00:00: UNITS [place] unit/mL (3 00 UNDER THE [facility] mL) SKIN THREE Branch injection TIMES DAILY insulin Yes [id number] ADMINISTER [facility] 8-11 8 TO 14 ity of U-100 100 00:00: UNITS [place] unit/mL (3 00 UNDER THE [facility] mL) SKIN THREE Branch injection TIMES DAILY insulin Yes [id number] ADMINISTER [facility] 8-11 8 TO 14 ity of U-100 100 00:00: UNITS [place] unit/mL (3 00 UNDER THE [facility] mL) SKIN THREE Branch injection TIMES DAILY insulin Yes [id number] ADMINISTER [facility] 8-11 8 TO 14 ity of U-100 100 00:00: UNITS [place] unit/mL (3 00 UNDER THE [facility] mL) SKIN THREE Branch injection TIMES DAILY insulin Yes [id number] ADMINISTER [facility] 8-11 8 TO 14 ity of U-100 100 00:00: UNITS [place] unit/mL (3 00 UNDER THE [facility] mL) SKIN THREE Branch injection TIMES DAILY insulin Yes [id number] ADMINISTER [facility] 8-11 8 TO 14 ity of U-100 100 00:00: UNITS [place] unit/mL (3 00 UNDER THE [facility] mL) SKIN THREE Branch injection TIMES DAILY insulin Yes [id number] ADMINISTER [facility] 8-11 8 TO 14 ity of U-100 100 00:00: UNITS [place] unit/mL (3 00 UNDER THE [facility] mL) SKIN THREE Branch injection TIMES DAILY insulin Yes [id number] ADMINISTER [facility] 8-11 8 TO 14 ity of U-100 100 00:00: UNITS [place] unit/mL (3 00 UNDER THE [facility] mL) SKIN THREE Branch injection TIMES DAILY insulin Yes [id number] ADMINISTER [facility] 8-11 8 TO 14 ity of U-100 100 00:00: UNITS [place] unit/mL (3 00 UNDER THE [facility] mL) SKIN THREE Branch injection TIMES DAILY insulin Yes [id number] ADMINISTER [facility] aspart 8-11 8 TO 14 ity of U-100 100 00:00: UNITS [place] unit/mL (3 00 UNDER THE [facility] mL) SKIN THREE Branch injection TIMES DAILY insulin Yes [id number] ADMINISTER [facility] 8-11 8 TO 14 ity of U-100 100 00:00: UNITS [place] unit/mL (3 00 UNDER THE [facility] mL) SKIN THREE Branch injection TIMES DAILY insulin Yes [id number] ADMINISTER [facility] 8-11 8 TO 14 ity of U-100 100 00:00: UNITS [place] unit/mL (3 00 UNDER THE [facility] mL) SKIN THREE Branch injection TIMES DAILY insulin Yes [id number] ADMINISTER [facility] 8-11 8 TO 14 ity of U-100 100 00:00: UNITS [place] unit/mL (3 00 UNDER THE [facility] mL) SKIN THREE Branch injection TIMES DAILY insulin Yes [id number] ADMINISTER [facility] 8-11 8 TO 14 ity of U-100 100 00:00: UNITS [place] unit/mL (3 00 UNDER THE [facility] mL) SKIN THREE Branch injection TIMES DAILY insulin Yes [id number] ADMINISTER [facility] 8-11 8 TO 14 ity of U-100 100 00:00: UNITS [place] unit/mL (3 00 UNDER THE [facility] mL) SKIN THREE Branch injection TIMES DAILY insulin Yes [id number] ADMINISTER [facility] 8-11 8 TO 14 ity of U-100 100 00:00: UNITS [place] unit/mL (3 00 UNDER THE [facility] mL) SKIN THREE Branch injection TIMES DAILY insulin Yes [id number] ADMINISTER [facility] aspart 8-11 8 TO 14 ity of U-100 100 00:00: UNITS [place] unit/mL (3 00 UNDER THE [facility] mL) SKIN THREE Branch injection TIMES DAILY insulin Yes [id number] ADMINISTER [facility] aspart 8-11 8 TO 14 ity of U-100 100 00:00: UNITS [place] unit/mL (3 00 UNDER THE [facility] mL) SKIN THREE Branch injection TIMES DAILY insulin Yes [id number] ADMINISTER [facility] 8-11 8 TO 14 ity of U-100 100 00:00: UNITS [place] unit/mL (3 00 UNDER THE [facility] mL) SKIN THREE Branch injection TIMES DAILY insulin Yes [id number] ADMINISTER [facility] aspart 8-11 8 TO 14 ity of U-100 100 00:00: UNITS [place] unit/mL (3 00 UNDER THE [facility] mL) SKIN THREE Branch injection TIMES DAILY insulin Yes [id number] ADMINISTER [facility] aspart 8-11 8 TO 14 ity of U-100 100 00:00: UNITS [place] unit/mL (3 00 UNDER THE [facility] mL) SKIN THREE Branch injection TIMES DAILY insulin Yes [id number] ADMINISTER [facility] aspart 8-11 8 TO 14 ity of U-100 100 00:00: UNITS [place] unit/mL (3 00 UNDER THE [facility] mL) SKIN THREE Branch injection TIMES DAILY insulin Yes [id number] ADMINISTER [facility] aspart 8-11 8 TO 14 ity of U-100 100 00:00: UNITS [place] unit/mL (3 00 UNDER THE [facility] mL) SKIN THREE Branch injection TIMES DAILY insulin Yes [id number] ADMINISTER [facility] aspart 8-11 8 TO 14 ity of U-100 100 00:00: UNITS [place] unit/mL (3 00 UNDER THE [facility] mL) SKIN THREE Branch injection TIMES DAILY insulin Yes [id number] ADMINISTER [facility] aspart 8-11 8 TO 14 ity of U-100 100 00:00: UNITS [place] unit/mL (3 00 UNDER THE [facility] mL) SKIN THREE Branch injection TIMES DAILY insulin Yes [id number] ADMINISTER [facility] aspart 8-11 8 TO 14 ity of U-100 100 00:00: UNITS [place] unit/mL (3 00 UNDER THE [facility] mL) SKIN THREE Branch injection TIMES DAILY insulin Yes [id number] ADMINISTER [facility] aspart 8-11 8 TO 14 ity of U-100 100 00:00: UNITS [place] unit/mL (3 00 UNDER THE [facility] mL) SKIN THREE Branch injection TIMES DAILY insulin Yes [id number] ADMINISTER [facility] aspart 8-11 8 TO 14 ity of U-100 100 00:00: UNITS [place] unit/mL (3 00 UNDER THE [facility] mL) SKIN THREE Branch injection TIMES DAILY insulin Yes [id number] ADMINISTER [facility] aspart 8-11 8 TO 14 ity of U-100 100 00:00: UNITS [place] unit/mL (3 00 UNDER THE [facility] mL) SKIN THREE Branch injection TIMES DAILY insulin Yes [id number] ADMINISTER [facility] aspart 8-11 8 TO 14 ity of U-100 100 00:00: UNITS [place] unit/mL (3 00 UNDER THE [facility] mL) SKIN THREE Branch injection TIMES DAILY insulin Yes [id number] ADMINISTER [facility] aspart 8-11 8 TO 14 ity of U-100 100 00:00: UNITS [place] unit/mL (3 00 UNDER THE [facility] mL) SKIN THREE Branch injection TIMES DAILY insulin Yes [id number] ADMINISTER [facility] aspart 8-11 8 TO 14 ity of U-100 100 00:00: UNITS [place] unit/mL (3 00 UNDER THE [facility] mL) SKIN THREE Branch injection TIMES DAILY insulin 2021- Yes [id number] ADMINISTER [facility] aspart 8-11 8 TO 14 ity of U-100 100 00:00: UNITS [place] unit/mL (3 00 UNDER THE [facility] mL) SKIN THREE Branch injection TIMES DAILY insulin Yes [id number] ADMINISTER [facility] aspart 8-11 8 TO 14 ity of U-100 100 00:00: UNITS [place] unit/mL (3 00 UNDER THE [facility] mL) SKIN THREE Branch injection TIMES DAILY insulin Yes [id number] ADMINISTER [facility] aspart 8-11 8 TO 14 ity of U-100 100 00:00: UNITS [place] unit/mL (3 00 UNDER THE [facility] mL) SKIN THREE Branch injection TIMES DAILY insulin Yes [id number] ADMINISTER [facility] aspart 8-11 8 TO 14 ity of U-100 100 00:00: UNITS [place] unit/mL (3 00 UNDER THE [facility] mL) SKIN THREE Branch injection TIMES DAILY insulin 2022- No [id number] ADMINISTER [facility] aspart 8-11 04-22 8 TO 14 ity of U-100 100 00:00: 00:00 UNITS [place] unit/mL (3 00 :00 UNDER THE [facility] ke[facility] mL) SKIN THREE Branch injection TIMES DAILY Insulin 2- No [id number] [id number] inject 44 [facility] Glargine 8-11 10-28 Units ity of ([place] 00:00: 00:00 [place] 00 :00 skin at Medical U-100 bedtime. Branch INSULIN) E11.65 100 unit/mL (3 mL) injection aspirin Yes 81mg Take 81 mg U nivers mg chewable 8-04 by mouth ity of tablet 10:16: daily. [address] Magnesium Yes 1{tbl} Take 1 Univ ers 250 mg Tab 8-04 tablet by ity of 10:16: mouth. [address] aspirin 81 0 Yes 81mg Take 81 mg U nivers mg chewable 8-04 by mouth ity of tablet 10:16: daily. [address] Magnesium Yes 1{tbl} Take 1 [facility] 250 mg Tab 8-04 tablet by ity of 10:16: mouth. [address] aspirin 81 2021-0 Yes 81mg Take 81 mg U nivers mg chewable 8-04 by mouth ity of tablet 10:16: daily. [address] Magnesium Yes 1{tbl} Take 1 [facility] 250 mg Tab 8-04 tablet by ity of 10:16: mouth. [place] [address] Medical Branch aspirin 81 2021-0 Yes 81mg Take 81 mg U nivers mg chewable 8-04 by mouth ity of tablet 10:16: daily. [place] [address] [facility] Branch Magnesium 2022-0 Yes 1{tbl} Take 1 [facility] 250 mg Tab 8-04 tablet by ity of 10:16: mouth. [place] [address] [facility] Branch aspirin 81 2021-0 Yes 81mg Take 81 mg U nivers mg chewable 8-04 by mouth ity of tablet 10:16: daily. [place] [address] [facility] Magnesium 2022-0 Yes 1{tbl} Take 1 [facility] 250 mg Tab 8-04 tablet by ity of 10:16: mouth. [place] [address] [facility] Branch aspirin 81 2021-0 Yes 81mg Take 81 mg U nivers mg chewable 8-04 by mouth ity of tablet 10:16: daily. [place] [address] [facility] Magnesium 2-0 Yes 1{tbl} Take 1 [facility] 250 mg Tab 8-04 tablet by ity of 10:16: mouth. [place] [address] [facility] Branch aspirin 81 2021-0 Yes 81mg Take 81 mg U nivers mg chewable 8-04 by mouth ity of tablet 10:16: daily. [place] [address] [facility] Magnesium 2-0 Yes 1{tbl} Take 1 [facility] 250 mg Tab 8-04 tablet by ity of 10:16: mouth. [place] [address] [facility] aspirin 81 2-0 Yes 81mg Take 81 mg U nivers mg chewable 8-04 by mouth ity of tablet 10:16: daily. [place] [address] [facility] Magnesium 2022-0 Yes 1{tbl} Take 1 [facility] 250 mg Tab 8-04 tablet by ity of 10:16: mouth. [place] [address] [facility] aspirin 81 2-0 Yes 81mg Take 81 mg U nivers mg chewable 8-04 by mouth ity of tablet 10:16: daily. [place] [address] [facility] Magnesium 2022-0 Yes 1{tbl} Take 1 [facility] 250 mg Tab 8-04 tablet by ity of 10:16: mouth. [place] [address] [facility] aspirin 81 2-0 Yes 81mg Take 81 mg U nivers mg chewable 8-04 by mouth ity of tablet 10:16: daily. [place] [address] [facility] Magnesium 2022-0 Yes 1{tbl} Take 1 [facility] 250 mg Tab 8-04 tablet by ity of 10:16: mouth. [place] [address] [facility] aspirin 81 2021-0 Yes 81mg Take 81 mg U nivers mg chewable 8-04 by mouth ity of tablet 10:16: daily. [place] [address] [facility] Magnesium 2-0 Yes 1{tbl} Take 1 [facility] 250 mg Tab 8-04 tablet by ity of 10:16: mouth. [place] [address] [facility] aspirin 81 2021-0 Yes 81mg Take 81 mg U nivers mg chewable 8-04 by mouth ity of tablet 10:16: daily. [place] [address] [facility] Magnesium 2-0 Yes 1{tbl} Take 1 [facility] 250 mg Tab 8-04 tablet by ity of 10:16: mouth. [place] [address] [facility] aspirin 81 2021-0 Yes 81mg Take 81 mg U nivers mg chewable 8-04 by mouth ity of tablet 10:16: daily. [place] [address] [facility] Magnesium 2-0 Yes 1{tbl} Take 1 [facility] 250 mg Tab 8-04 tablet by ity of 10:16: mouth. [place] [address] [facility] aspirin 81 2021-0 Yes 81mg Take 81 mg U nivers mg chewable 8-04 by mouth ity of tablet 10:16: daily. [place] [address] [facility] Magnesium 2-0 Yes 1{tbl} Take 1 [facility] 250 mg Tab 8-04 tablet by ity of 10:16: mouth. [place] [address] [facility] aspirin 81 2-0 Yes 81mg Take 81 mg U nivers mg chewable 8-04 by mouth ity of tablet 10:16: daily. [place] [address] [facility] Magnesium 2-0 Yes 1{tbl} Take 1 [facility] 250 mg Tab 8-04 tablet by ity of 10:16: mouth. [place] [address] [facility] aspirin 81 2-0 Yes 81mg Take 81 mg U nivers mg chewable 8-04 by mouth ity of tablet 10:16: daily. [place] [address] [facility] Magnesium 2022-0 Yes 1{tbl} Take 1 [facility] 250 mg Tab 8-04 tablet by ity of 10:16: mouth. [place] [address] [facility] aspirin 81 2-0 Yes 81mg Take 81 mg U nivers mg chewable 8-04 by mouth ity of tablet 10:16: daily. [place] [address] [facility] Magnesium 2022-0 Yes 1{tbl} Take 1 [facility] 250 mg Tab 8-04 tablet by ity of 10:16: mouth. [place] [address] [facility] aspirin 81 2-0 Yes 81mg Take 81 mg U nivers mg chewable 8-04 by mouth ity of tablet 10:16: daily. [place] [address] [facility] Magnesium 2022-0 Yes 1{tbl} Take 1 [facility] 250 mg Tab 8-04 tablet by ity of 10:16: mouth. [place] [address] [facility] aspirin 81 2021-0 Yes 81mg Take 81 mg U nivers mg chewable 8-04 by mouth ity of tablet 10:16: daily. [place] [address] [facility] Magnesium 2022-0 Yes 1{tbl} Take 1 [facility] 250 mg Tab 8-04 tablet by ity of 10:16: mouth. [place] [address] [facility] aspirin 81 2021-0 Yes 81mg Take 81 mg U nivers mg chewable 8-04 by mouth ity of tablet 10:16: daily. [place] [address] [facility] Magnesium 2-0 Yes 1{tbl} Take 1 [facility] 250 mg Tab 8-04 tablet by ity of 10:16: mouth. [place] [address] [facility] aspirin 81 2021-0 Yes 81mg Take 81 mg U nivers mg chewable 8-04 by mouth ity of tablet 10:16: daily. [place] [address] [facility] Magnesium 2022-0 Yes 1{tbl} Take 1 [facility] 250 mg Tab 8-04 tablet by ity of 10:16: mouth. [place] [address] [facility] aspirin 81 2-0 Yes 81mg Take 81 mg U nivers mg chewable 8-04 by mouth ity of tablet 10:16: daily. [place] [address] [facility] Magnesium 2022-0 Yes 1{tbl} Take 1 [facility] 250 mg Tab 8-04 tablet by ity of 10:16: mouth. [place] [address] [facility] aspirin 81 2-0 Yes 81mg Take 81 mg U nivers mg chewable 8-04 by mouth ity of tablet 10:16: daily. [place] [address] [facility] Magnesium 2022-0 Yes 1{tbl} Take 1 [facility] 250 mg Tab 8-04 tablet by ity of 10:16: mouth. [place] [address] [facility] aspirin 81 2-0 Yes 81mg Take 81 mg U nivers mg chewable 8-04 by mouth ity of tablet 10:16: daily. [place] [facility] Magnesium 2022-0 Yes 1{tbl} Take 1 [facility] 250 mg Tab 8-04 tablet by ity of 10:16: mouth. [place] [address] [facility] aspirin 81 2-0 Yes 81mg Take 81 mg U nivers mg chewable 8-04 by mouth ity of tablet 10:16: daily. [place] [address] [facility] Magnesium 2022-0 Yes 1{tbl} Take 1 [facility] 250 mg Tab 8-04 tablet by ity of 10:16: mouth. [place] [address] [facility] aspirin 81 2021-0 Yes 81mg Take 81 mg U nivers mg chewable 8-04 by mouth ity of tablet 10:16: daily. [place] [address] [facility] Magnesium 2022-0 Yes 1{tbl} Take 1 [facility] 250 mg Tab 8-04 tablet by ity of 10:16: mouth. [place] [address] [facility] aspirin 81 2-0 Yes 81mg Take 81 mg U nivers mg chewable 8-04 by mouth ity of tablet 10:16: daily. [place] [address] [facility] Magnesium 2-0 Yes 1{tbl} Take 1 [facility] 250 mg Tab 8-04 tablet by ity of 10:16: mouth. [place] [address] [facility] aspirin 81 2-0 Yes 81mg Take 81 mg U nivers mg chewable 8-04 by mouth ity of tablet 10:16: daily. [place] [address] [facility] Magnesium 2022-0 Yes 1{tbl} Take 1 [facility] 250 mg Tab 8-04 tablet by ity of 10:16: mouth. [place] [address] [facility] aspirin 81 2-0 Yes 81mg Take 81 mg U nivers mg chewable 8-04 by mouth ity of tablet 10:16: daily. [place] [address] [facility] Magnesium 2022-0 Yes 1{tbl} Take 1 [facility] 250 mg Tab 8-04 tablet by ity of 10:16: mouth. [place] [address] [facility] aspirin 81 2-0 Yes 81mg Take 81 mg U nivers mg chewable 8-04 by mouth ity of tablet 10:16: daily. [place] [address] [facility] Magnesium 2022-0 Yes 1{tbl} Take 1 [facility] 250 mg Tab 8-04 tablet by ity of 10:16: mouth. [place] [address] [facility] aspirin 81 2-0 Yes 81mg Take 81 mg U nivers mg chewable 8-04 by mouth ity of tablet 10:16: daily. [place] [address] [facility] Magnesium 2022-0 Yes 1{tbl} Take 1 [facility] 250 mg Tab 8-04 tablet by ity of 10:16: mouth. [place] [address] [facility] aspirin 81 2-0 Yes 81mg Take 81 mg U nivers mg chewable 8-04 by mouth ity of tablet 10:16: daily. [place] [address] [facility] Magnesium 2022-0 Yes 1{tbl} Take 1 [facility] 250 mg Tab 8-04 tablet by ity of 10:16: mouth. [place] [address] [facility] aspirin 81 2-0 Yes 81mg Take 81 mg U nivers mg chewable 8-04 by mouth ity of tablet 10:16: daily. [place] [address] [facility] Magnesium 2022-0 Yes 1{tbl} Take 1 [facility] 250 mg Tab 8-04 tablet by ity of 10:16: mouth. [place] [address] [facility] aspirin 81 2021-0 Yes 81mg Take 81 mg U nivers mg chewable 8-04 by mouth ity of tablet 10:16: daily. [place] [address] [facility] Magnesium 2022-0 Yes 1{tbl} Take 1 [facility] 250 mg Tab 8-04 tablet by ity of 10:16: mouth. [place] [address] [facility] aspirin 81 2-0 Yes 81mg Take 81 mg U nivers mg chewable 8-04 by mouth ity of tablet 10:16: daily. [place] [address] [facility] Magnesium 2022-0 Yes 1{tbl} Take 1 [facility] 250 mg Tab 8-04 tablet by ity of 10:16: mouth. [place] [address] [facility] aspirin 81 2-0 Yes 81mg Take 81 mg U nivers mg chewable 8-04 by mouth ity of tablet 10:16: daily. [place] [address] [facility] Magnesium 2022-0 Yes 1{tbl} Take 1 [facility] 250 mg Tab 8-04 tablet by ity of 10:16: mouth. [place] [address] [facility] aspirin 81 2-0 Yes 81mg Take 81 mg U nivers mg chewable 8-04 by mouth ity of tablet 10:16: daily. [place] [address] [facility] Magnesium 2022-0 Yes 1{tbl} Take 1 [facility] 250 mg Tab 8-04 tablet by ity of 10:16: mouth. [place] [address] [facility] aspirin 81 2-0 Yes 81mg Take 81 mg U nivers mg chewable 8-04 by mouth ity of tablet 10:16: daily. [place] [address] [facility] Magnesium 2-0 Yes 1{tbl} Take 1 [facility] 250 mg Tab 8-04 tablet by ity of 10:16: mouth. [place] [address] [facility] aspirin 81 2021-0 Yes 81mg Take 81 mg U nivers mg chewable 8-04 by mouth ity of tablet 10:16: daily. [place] [address] [facility] Magnesium 2-0 Yes 1{tbl} Take 1 [facility] 250 mg Tab 8-04 tablet by ity of 10:16: mouth. [place] [address] [facility] aspirin 81 2021-0 Yes 81mg Take 81 mg U nivers mg chewable 8-04 by mouth ity of tablet 10:16: daily. [place] [address] [facility] Magnesium 2-0 Yes 1{tbl} Take 1 [facility] 250 mg Tab 8-04 tablet by ity of 10:16: mouth. [place] [address] [facility] aspirin 81 2021-0 Yes 81mg Take 81 mg U nivers mg chewable 8-04 by mouth ity of tablet 10:16: daily. [place] [address] [facility] Magnesium 2021-0 Yes 1{tbl} Take 1 [facility] 250 mg Tab 8-04 tablet by ity of 10:16: mouth. [place] [address] [facility] aspirin 81 2021-0 Yes 81mg Take 81 mg U nivers mg chewable 8-04 by mouth ity of tablet 10:16: daily. [place] [address] [facility] Magnesium 2-0 Yes 1{tbl} Take 1 [facility] 250 mg Tab 8-04 tablet by ity of 10:16: mouth. [place] [address] [facility] aspirin 81 2-0 Yes 81mg Take 81 mg U nivers mg chewable 8-04 by mouth ity of tablet 10:16: daily. [place] [address] [facility] Magnesium 2022-0 Yes 1{tbl} Take 1 [facility] 250 mg Tab 8-04 tablet by ity of 10:16: mouth. [place] [address] [facility] aspirin 81 2-0 Yes 81mg Take 81 mg U nivers mg chewable 8-04 by mouth ity of tablet 10:16: daily. [place] [address] [facility] Magnesium 2-0 Yes 1{tbl} Take 1 [facility] 250 mg Tab 8-04 tablet by ity of 10:16: mouth. [place] [address] [facility] aspirin 81 2022-0 Yes 81mg Take 81 mg [facility] mg chewable 8-04 by mouth ity of tablet 10:16: daily. [place] [address] [facility] Magnesium 2-0 Yes 1{tbl} Take 1 [facility] 250 mg Tab 8-04 tablet by ity of 10:16: mouth. [place] [address] [facility] aspirin 81 2021-0 Yes 81mg Take 81 mg [facility] mg chewable 8-04 by mouth ity of tablet 10:16: daily. [place] [address] [facility] Magnesium 2-0 Yes 1{tbl} Take 1 [facility] 250 mg Tab 8-04 tablet by ity of 10:16: mouth. [place] [address] [facility] aspirin 81 2021-0 Yes 81mg Take 81 mg [facility] mg chewable 8-04 by mouth ity of tablet 10:16: daily. [place] [address] [facility] Magnesium 2-0 Yes 1{tbl} Take 1 [facility] 250 mg Tab 8-04 tablet by ity of 10:16: mouth. [place] [address] [facility] aspirin 81 2021-0 Yes 81mg Take 81 mg [facility] mg chewable 8-04 by mouth ity of tablet 10:16: daily. [place] [address] [facility] Magnesium 2-0 Yes 1{tbl} Take 1 [facility] 250 mg Tab 8-04 tablet by ity of 10:16: mouth. [place] [address] [facility] aspirin 81 2021-0 Yes 81mg Take 81 mg [facility] mg chewable 8-04 by mouth ity of tablet 10:16: daily. [place] [address] [facility] Magnesium 2-0 Yes 1{tbl} Take 1 [facility] 250 mg Tab 8-04 tablet by ity of 10:16: mouth. [place] [address] [facility] aspirin 81 2-0 Yes 81mg Take 81 mg [facility] mg chewable 8-04 by mouth ity of tablet 10:16: daily. [place] [address] [facility] Magnesium 2-0 Yes 1{tbl} Take 1 [facility] 250 mg Tab 8-04 tablet by ity of 10:16: mouth. [place] [address] [facility] aspirin 81 2-0 Yes 81mg Take 81 mg [facility] mg chewable 8-04 by mouth ity of tablet 10:16: daily. [place] [address] [facility] Magnesium 2-0 Yes 1{tbl} Take 1 [facility] 250 mg Tab 8-04 tablet by ity of 10:16: mouth. [place] [address] [facility] aspirin 81 2021-0 Yes 81mg Take 81 mg [facility] mg chewable 8-04 by mouth ity of tablet 10:16: daily. [place] [address] [facility] Magnesium 2-0 Yes 1{tbl} Take 1 [facility] 250 mg Tab 8-04 tablet by ity of 10:16: mouth. [place] [address] [facility] aspirin 81 2-0 Yes 81mg Take 81 mg [facility] mg chewable 8-04 by mouth ity of tablet 10:16: daily. [place] [address] [facility] Magnesium 2022-0 Yes 1{tbl} Take 1 [facility] 250 mg Tab 8-04 tablet by ity of 10:16: mouth. [place] [address] [facility] aspirin 81 2021-0 Yes 81mg Take 81 mg [facility] mg chewable 8-04 by mouth ity of tablet 10:16: daily. [place] [address] [facility] Magnesium 2-0 Yes 1{tbl} Take 1 [facility] 250 mg Tab 8-04 tablet by ity of 10:16: mouth. [place] [address] [facility] aspirin 81 2021-0 Yes 81mg Take 81 mg [facility] mg chewable 8-04 by mouth ity of tablet 10:16: daily. [place] [address] [facility] Magnesium 2-0 Yes 1{tbl} Take 1 [facility] 250 mg Tab 8-04 tablet by ity of 10:16: mouth. [place] [address] [facility] aspirin 81 2-0 Yes 81mg Take 81 mg [facility] mg chewable 8-04 by mouth ity of tablet 10:16: daily. [place] [address] [facility] Magnesium 2022-0 Yes 1{tbl} Take 1 [facility] 250 mg Tab 8-04 tablet by ity of 10:16: mouth. [place] [address] [facility] aspirin 81 2-0 Yes 81mg Take 81 mg [facility] mg chewable 8-04 by mouth ity of tablet 10:16: daily. [place] [address] [facility] Magnesium 2022-0 Yes 1{tbl} Take 1 [facility] 250 mg Tab 8-04 tablet by ity of 10:16: mouth. [place] [address] [facility] aspirin 81 2-0 Yes 81mg Take 81 mg [facility] mg chewable 8-04 by mouth ity of tablet 10:16: daily. [place] [address] [facility] Magnesium 2022-0 Yes 1{tbl} Take 1 [facility] 250 mg Tab 8-04 tablet by ity of 10:16: mouth. [place] [address] [facility] aspirin 81 2021-0 Yes 81mg Take 81 mg [facility] mg chewable 8-04 by mouth ity of tablet 10:16: daily. [place] [address] [facility] Magnesium 2-0 Yes 1{tbl} Take 1 [facility] 250 mg Tab 8-04 tablet by ity of 10:16: mouth. [place] [address] [facility] aspirin 81 2021-0 Yes 81mg Take 81 mg [facility] mg chewable 8-04 by mouth ity of tablet 10:16: daily. [place] [address] [facility] Magnesium 2-0 Yes 1{tbl} Take 1 [facility] 250 mg Tab 8-04 tablet by ity of 10:16: mouth. [place] [address] [facility] aspirin 81 2021-0 Yes 81mg Take 81 mg [facility] mg chewable 8-04 by mouth ity of tablet 10:16: daily. [place] [address] [facility] Magnesium 2021-0 Yes 1{tbl} Take 1 [facility] 250 mg Tab 8-04 tablet by ity of 10:16: mouth. [place] [address] [facility] aspirin 81 2021-0 Yes 81mg Take 81 mg [facility] mg chewable 8-04 by mouth ity of tablet 10:16: daily. [place] [address] [facility] Magnesium 2-0 Yes 1{tbl} Take 1 [facility] 250 mg Tab 8-04 tablet by ity of 10:16: mouth. [place] [address] [facility] aspirin 81 2021-0 Yes 81mg Take 81 mg [facility] mg chewable 8-04 by mouth ity of tablet 10:16: daily. [place] [address] [facility] Magnesium 2-0 Yes 1{tbl} Take 1 [facility] 250 mg Tab 8-04 tablet by ity of 10:16: mouth. [place] [address] [facility] aspirin 81 2-0 Yes 81mg Take 81 mg [facility] mg chewable 8-04 by mouth ity of tablet 10:16: daily. [place] [address] [facility] Magnesium 2022-0 Yes 1{tbl} Take 1 [facility] 250 mg Tab 8-04 tablet by ity of 10:16: mouth. [place] [address] [facility] aspirin 81 2-0 Yes 81mg Take 81 mg [facility] mg chewable 8-04 by mouth ity of tablet 10:16: daily. [place] [address] [facility] Magnesium 2022-0 Yes 1{tbl} Take 1 [facility] 250 mg Tab 8-04 tablet by ity of 10:16: mouth. [place] [address] [facility] aspirin 81 2021-0 Yes 81mg Take 81 mg [facility] mg chewable 8-04 by mouth ity of tablet 10:16: daily. [place] [address] [facility] Magnesium 2022-0 Yes 1{tbl} Take 1 [facility] 250 mg Tab 8-04 tablet by ity of 10:16: mouth. [place] [address] [facility] aspirin 81 2021-0 Yes 81mg Take 81 mg [facility] mg chewable 8-04 by mouth ity of tablet 10:16: daily. [place] [address] [facility] Magnesium 2022-0 Yes 1{tbl} Take 1 [facility] 250 mg Tab 8-04 tablet by ity of 10:16: mouth. [place] [address] [facility] aspirin 81 2021-0 Yes 81mg Take 81 mg [facility] mg chewable 8-04 by mouth ity of tablet 10:16: daily. [place] [address] [facility] Magnesium 2021-0 Yes 1{tbl} Take 1 [facility] 250 mg Tab 8-04 tablet by ity of 10:16: mouth. [place] [address] [facility] aspirin 81 2021-0 Yes 81mg Take 81 mg [facility] mg chewable 8-04 by mouth ity of tablet 10:16: daily. [place] [address] [facility] Magnesium 2-0 Yes 1{tbl} Take 1 [facility] 250 mg Tab 8-04 tablet by ity of 10:16: mouth. [place] [address] [facility] aspirin 81 2021-0 Yes 81mg Take 81 mg [facility] mg chewable 8-04 by mouth ity of tablet 10:16: daily. [place] [address] [facility] Magnesium 2022-0 Yes 1{tbl} Take 1 [facility] 250 mg Tab 8-04 tablet by ity of 10:16: mouth. [place] [address] [facility] aspirin 81 2-0 Yes 81mg Take 81 mg [facility] mg chewable 8-04 by mouth ity of tablet 10:16: daily. [place] [address] [facility] Magnesium 2022-0 Yes 1{tbl} Take 1 [facility] 250 mg Tab 8-04 tablet by ity of 10:16: mouth. [place] [address] [facility] aspirin 81 2-0 Yes 81mg Take 81 mg [facility] mg chewable 8-04 by mouth ity of tablet 10:16: daily. [place] [address] [facility] Magnesium 2022-0 Yes 1{tbl} Take 1 [facility] 250 mg Tab 8-04 tablet by ity of 10:16: mouth. [place] [address] [facility] aspirin 81 2-0 Yes 81mg Take 81 mg [facility] mg chewable 8-04 by mouth ity of tablet 10:16: daily. [place] [address] [facility] Magnesium 2022-0 Yes 1{tbl} Take 1 [facility] 250 mg Tab 8-04 tablet by ity of 10:16: mouth. [place] [address] [facility] aspirin 81 2021-0 Yes 81mg Take 81 mg [facility] mg chewable 8-04 by mouth ity of tablet 10:16: daily. [place] [address] [facility] Magnesium 2022-0 Yes 1{tbl} Take 1 [facility] 250 mg Tab 8-04 tablet by ity of 10:16: mouth. [place] [address] [facility] aspirin 81 2021-0 Yes 81mg Take 81 mg [facility] mg chewable 8-04 by mouth ity of tablet 10:16: daily. [place] [address] [facility] Magnesium 2-0 Yes 1{tbl} Take 1 [facility] 250 mg Tab 8-04 tablet by ity of 10:16: mouth. [place] [address] [facility] aspirin 81 2-0 Yes 81mg Take 81 mg [facility] mg chewable 8-04 by mouth ity of tablet 10:16: daily. [place] [address] [facility] Magnesium 2-0 Yes 1{tbl} Take 1 [facility] 250 mg Tab 8-04 tablet by ity of 10:16: mouth. [place] [address] [facility] aspirin 81 2-0 Yes 81mg Take 81 mg [facility] mg chewable 8-04 by mouth ity of tablet 10:16: daily. [place] [address] [facility] Magnesium 2022-0 Yes 1{tbl} Take 1 [facility] 250 mg Tab 8-04 tablet by ity of 10:16: mouth. [place] [address] [facility] aspirin 81 2-0 Yes 81mg Take 81 mg [facility] mg chewable 8-04 by mouth ity of tablet 10:16: daily. [place] [address] [facility] Magnesium 2022-0 Yes 1{tbl} Take 1 [facility] 250 mg Tab 8-04 tablet by ity of 10:16: mouth. [place] [address] [facility] Magnesium 2022-0 Yes 1{tbl} Take 1 [facility] 250 mg Tab 8-04 tablet by ity of 10:16: mouth. [place] [address] [facility] Magnesium 2021-0 Yes 1{tbl} Take 1 [facility] 250 mg Tab 8-04 tablet by ity of 10:16: mouth. [place] [address] [facility] Magnesium 2-0 Yes 1{tbl} Take 1 [facility] 250 mg Tab 8-04 tablet by ity of 10:16: mouth. [place] [address] [facility] Magnesium 2021-0 Yes 1{tbl} Take 1 [facility] 250 mg Tab 8-04 tablet by ity of 10:16: mouth. [place] [address] [facility] Magnesium 2021-0 Yes 1{tbl} Take 1 [facility] 250 mg Tab 8-04 tablet by ity of 10:16: mouth. [place] [address] [facility] Magnesium 2021-0 Yes 1{tbl} Take 1 [facility] 250 mg Tab 8-04 tablet by ity of 10:16: mouth. [place] [address] [facility] Magnesium 2021-0 Yes 1{tbl} Take 1 [facility] 250 mg Tab 8-04 tablet by ity of 10:16: mouth. [place] [address] [facility] Magnesium 2021-0 Yes 1{tbl} Take 1 [facility] 250 mg Tab 8-04 tablet by ity of 10:16: mouth. [place] [address] [facility] Magnesium 2021-0 Yes 1{tbl} Take 1 [facility] 250 mg Tab 8-04 tablet by ity of 10:16: mouth. [place] [address] [facility] Magnesium 2-0 Yes 1{tbl} Take 1 [facility] 250 mg Tab 8-04 tablet by ity of 10:16: mouth. [place] [address] [facility] Magnesium 2-0 Yes 1{tbl} Take 1 [facility] 250 mg Tab 8-04 tablet by ity of 10:16: mouth. [place] [address] [facility] Magnesium 2-0 Yes 1{tbl} Take 1 [facility] 250 mg Tab 8-04 tablet by ity of 10:16: mouth. [place] [address] [facility] Magnesium 2-0 Yes 1{tbl} Take 1 [facility] 250 mg Tab 8-04 tablet by ity of 10:16: mouth. [place] [address] [facility] Magnesium 2-0 Yes 1{tbl} Take 1 [facility] 250 mg Tab 8-04 tablet by ity of 10:16: mouth. [place] [address] [facility] Magnesium 2021-0 Yes 1{tbl} Take 1 [facility] 250 mg Tab 8-04 tablet by ity of 10:16: mouth. [place] [address] [facility] Magnesium 2021-0 Yes 1{tbl} Take 1 [facility] 250 mg Tab 8-04 tablet by ity of 10:16: mouth. [place] [address] [facility] Magnesium 2021-0 Yes 1{tbl} Take 1 [facility] 250 mg Tab 8-04 tablet by ity of 10:16: mouth. [place] [address] [facility] [place] Magnesium 2021-0 Yes 1{tbl} Take 1 [facility] 250 mg Tab 8-04 tablet by ity of 10:16: mouth. [place] [address] [facility] Magnesium 2021-0 Yes 1{tbl} Take 1 [facility] 250 mg Tab 8-04 tablet by ity of 10:16: mouth. [place] [address] [facility] [place] Magnesium 2021-0 Yes 1{tbl} Take 1 [facility] 250 mg Tab 8-04 tablet by ity of 10:16: mouth. [place] [address] [facility] [place] Magnesium 2021-0 Yes 1{tbl} Take 1 [facility] 250 mg Tab 8-04 tablet by ity of 10:16: mouth. [place] [address] [facility] Magnesium 2021-0 Yes 1{tbl} Take 1 [facility] 250 mg Tab 8-04 tablet by ity of 10:16: mouth. [place] [address] [facility] Magnesium 2021-0 Yes 1{tbl} Take 1 [facility] 250 mg Tab 8-04 tablet by ity of 10:16: mouth. [place] [address] [facility] [place] Magnesium 2021-0 Yes 1{tbl} Take 1 [facility] 250 mg Tab 8-04 tablet by ity of 10:16: mouth. [place] [address] [facility] Magnesium 2021-0 Yes 1{tbl} Take 1 [facility] 250 mg Tab 8-04 tablet by ity of 10:16: mouth. [place] [address] [facility] Magnesium 2021-0 Yes 1{tbl} Take 1 [facility] 250 mg Tab 8-04 tablet by ity of 10:16: mouth. [place] [address] [facility] Magnesium 2021-0 Yes 1{tbl} Take 1 [facility] 250 mg Tab 8-04 tablet by ity of 10:16: mouth. [place] [address] [facility] [place] Magnesium 2021-0 Yes 1{tbl} Take 1 [facility] 250 mg Tab 8-04 tablet by ity of 10:16: mouth. [place] [address] [facility] [place] levothyroxi 2021-0 202- No Other 100ug Take 1 [facility] ne 06-19 11-10 specified tablet ity of (Synthroid) 00:00: 00:00 anemia (100 mcg) [place] 100 mcg 00 :00 by mouth MD tablet daily. [facility] AMLODIPINE Yes [id number] 5mg TAKE 1 [facility] 5 mg tablet 7-11 TABLET BY ity of 00:00: MOUTH [place] EVERY Medical MORNING Branch Insulin Yes [id number] USE TO [facility] [place], 7-11 INJECT ity of Disposable, 00:00: INSULIN [place] (BD [place] 00 FOUR TO Medical 2ND GEN PEN FIVE TIMES Br anch NEEDLE) 32 A DAY gauge x 5/32" N[facility] AMLODIPINE Yes [id number] 5mg TAKE 1 [facility] 5 mg tablet 7-11 TABLET BY ity of 00:00: MOUTH [place] EVERY Medical MORNING Branch Insulin Yes [id number] USE TO [facility] [place], 7-11 INJECT ity of Disposable, 00:00: INSULIN [place] (BD [place] 00 FOUR TO Medical 2ND GEN PEN FIVE TIMES Br anch NEEDLE) 32 A DAY gauge x 5/32" Ndle AMLODIPINE Yes [id number] 5mg TAKE 1 [facility] 5 mg tablet 7-11 TABLET BY ity of 00:00: MOUTH [place] EVERY Medical MORNING Branch Insulin Yes [id number] USE TO [facility] [place], 7-11 INJECT ity of Disposable, 00:00: INSULIN [place] (BD [place] 00 FOUR TO Medical 2ND GEN PEN FIVE TIMES Br anch NEEDLE) 32 A DAY gauge x 5/32" Ndle AMLODIPINE Yes [id number] 5mg TAKE 1 [facility] 5 mg tablet 7-11 TABLET BY ity of 00:00: MOUTH [place] 00 EVERY Medical MORNING Branch Insulin Yes [id number] USE TO [facility] [place], 7-11 INJECT ity of Disposable, 00:00: INSULIN [place] (BD [place] 00 FOUR TO Medical 2ND GEN PEN FIVE TIMES Br anch NEEDLE) 32 A DAY gauge x 5/32" Ndle AMLODIPINE Yes [id number] 5mg TAKE 1 [facility] 5 mg tablet 7-11 TABLET BY ity of 00:00: MOUTH [place] 00 EVERY Medical MORNING Branch Insulin Yes [id number] USE TO [facility] [place], 7-11 INJECT ity of Disposable, 00:00: INSULIN [place] (BD [place] 00 FOUR TO Medical 2ND GEN PEN FIVE TIMES Br anch NEEDLE) 32 A DAY gauge x 5/32" [facility]dle AMLODIPINE 2021-0 Yes [id number] 5mg TAKE 1 [facility] 5 mg tablet 7-11 TABLET BY ity of 00:00: MOUTH [place] 00 EVERY Medical MORNING Branch Insulin 0 Yes [id number] USE TO [facility] [place], 7-11 INJECT ity of Disposable, 00:00: INSULIN [place] (BD [place] 00 FOUR TO Medical 2ND GEN PEN FIVE TIMES Br anch NEEDLE) 32 A DAY gauge x 5/32" Ndle AMLODIPINE 0 Yes [id number] 5mg TAKE 1 [facility] 5 mg tablet 7-11 TABLET BY ity of 00:00: MOUTH [place] 00 EVERY Medical MORNING Branch Insulin 0 Yes [id number] USE TO [facility] [place], 7-11 INJECT ity of Disposable, 00:00: INSULIN [place] (BD [place] 00 FOUR TO Medical 2ND GEN PEN FIVE TIMES Br anch NEEDLE) 32 A DAY gauge x 5/32" Ndle AMLODIPINE 2021-0 Yes [id number] 5mg TAKE 1 [facility] 5 mg tablet 7-11 TABLET BY ity of 00:00: MOUTH [place] 00 EVERY Medical MORNING Branch Insulin 2021-0 Yes [id number] USE TO [facility] [place], 7-11 INJECT ity of Disposable, 00:00: INSULIN [place] (BD [place] 00 FOUR TO Medical 2ND GEN PEN FIVE TIMES Br anch NEEDLE) 32 A DAY gauge x 5/32" Ndle AMLODIPINE 2021-0 Yes [id number] 5mg TAKE 1 [facility] 5 mg tablet 7-11 TABLET BY ity of 00:00: MOUTH [place] 00 EVERY Medical MORNING Branch Insulin 2021-0 Yes [id number] USE TO [facility] [place], 7-11 INJECT ity of Disposable, 00:00: INSULIN [place] (BD [place] 00 FOUR TO Medical 2ND GEN PEN FIVE TIMES Br anch NEEDLE) 32 A DAY gauge x 5/32" Ndle AMLODIPINE 2021-0 Yes [id number] 5mg TAKE 1 [facility] 5 mg tablet 7-11 TABLET BY ity of 00:00: MOUTH [place] 00 EVERY Medical MORNING Branch Insulin 2021-0 Yes [id number] USE TO [facility] [place], 7-11 INJECT ity of Disposable, 00:00: INSULIN [place] (BD [place] 00 FOUR TO Medical 2ND GEN PEN FIVE TIMES Br anch NEEDLE) 32 A DAY gauge x 5/32" Ndle AMLODIPINE 2021-0 Yes [id number] 5mg TAKE 1 [facility] 5 mg tablet 7-11 TABLET BY ity of 00:00: MOUTH [place] 00 EVERY Medical MORNING Branch Insulin 2021-0 Yes [id number] USE TO [facility] [place], 7-11 INJECT ity of Disposable, 00:00: INSULIN [place] (BD [place] 00 FOUR TO Medical 2ND GEN PEN FIVE TIMES Br anch NEEDLE) 32 A DAY gauge x 5/32" Ndle AMLODIPINE 2021-0 Yes [id number] 5mg TAKE 1 [facility] 5 mg tablet 7-11 TABLET BY ity of 00:00: MOUTH [place] 00 EVERY Medical MORNING Branch Insulin 2021-0 Yes [id number] USE TO [facility] [place], 7-11 INJECT ity of Disposable, 00:00: INSULIN [place] (BD [place] 00 FOUR TO Medical 2ND GEN PEN FIVE TIMES Br anch NEEDLE) 32 A DAY gauge x 5/32" Ndle AMLODIPINE 2021-0 Yes [id number] 5mg TAKE 1 [facility] 5 mg tablet 7-11 TABLET BY ity of 00:00: MOUTH [place] 00 EVERY Medical MORNING Branch Insulin 2021-0 Yes [id number] USE TO [facility] [place], 7-11 INJECT ity of Disposable, 00:00: INSULIN [place] (BD [place] 00 FOUR TO Medical 2ND GEN PEN FIVE TIMES Br anch NEEDLE) 32 A DAY gauge x 5/32" Ndle AMLODIPINE 2021-0 Yes [id number] 5mg TAKE 1 [facility] 5 mg tablet 7-11 TABLET BY ity of 00:00: MOUTH [place] 00 EVERY Medical MORNING Branch Insulin 2021-0 Yes [id number] USE TO [facility] [place], 7-11 INJECT ity of Disposable, 00:00: INSULIN [place] (BD [place] 00 FOUR TO Medical 2ND GEN PEN FIVE TIMES Br anch NEEDLE) 32 A DAY gauge x 5/32" Ndle AMLODIPINE 2021-0 Yes [id number] 5mg TAKE 1 [facility] 5 mg tablet 7-11 TABLET BY ity of 00:00: MOUTH [place] 00 EVERY Medical MORNING Branch Insulin 2021-0 Yes [id number] USE TO [facility] [place], 7-11 INJECT ity of Disposable, 00:00: INSULIN [place] (BD [place] 00 FOUR TO Medical 2ND GEN PEN FIVE TIMES Br anch NEEDLE) 32 A DAY gauge x 5" Ndle AMLODIPINE 0 Yes [id number] 5mg TAKE 1 [facility] 5 mg tablet 7-11 TABLET BY ity of 00:00: MOUTH [place] 00 EVERY Medical MORNING Branch Insulin 0 Yes [id number] USE TO [facility] [place], 7-11 INJECT ity of Disposable, 00:00: INSULIN [place] (BD [place] 00 FOUR TO Medical 2ND GEN PEN FIVE TIMES Br anch NEEDLE) 32 A DAY gauge x " Ndle AMLODIPINE Yes [id number] 5mg TAKE 1 [facility] 5 mg tablet 7-11 TABLET BY ity of 00:00: MOUTH [place] 00 EVERY Medical MORNING Branch Insulin 0 Yes [id number] USE TO [facility] [place], 7-11 INJECT ity of Disposable, 00:00: INSULIN [place] (BD [place] 00 FOUR TO Medical 2ND GEN PEN FIVE TIMES Br anch NEEDLE) 32 A DAY gauge x " Ndle AMLODIPINE Yes [id number] 5mg TAKE 1 [facility] 5 mg tablet 7-11 TABLET BY ity of 00:00: MOUTH [place] 00 EVERY Medical MORNING Branch Insulin 0 Yes [id number] USE TO [facility] [place], 7-11 INJECT ity of Disposable, 00:00: INSULIN [place] (BD [place] 00 FOUR TO Medical 2ND GEN PEN FIVE TIMES Br anch NEEDLE) 32 A DAY gauge x " Ndle AMLODIPINE Yes [id number] 5mg TAKE 1 [facility] 5 mg tablet 7-11 TABLET BY ity of 00:00: MOUTH [place] 00 EVERY Medical MORNING Branch Insulin 2021-0 Yes [id number] USE TO [facility] [place], 7-11 INJECT ity of Disposable, 00:00: INSULIN [place] (BD [place] 00 FOUR TO Medical 2ND GEN PEN FIVE TIMES Br anch NEEDLE) 32 A DAY gauge x " Ndle AMLODIPINE 0 Yes [id number] 5mg TAKE 1 [facility] 5 mg tablet 7-11 TABLET BY ity of 00:00: MOUTH [place] 00 EVERY Medical MORNING Branch Insulin 0 Yes [id number] USE TO [facility] [place], 7-11 INJECT ity of Disposable, 00:00: INSULIN [place] (BD [place] 00 FOUR TO Medical 2ND GEN PEN FIVE TIMES Br anch NEEDLE) 32 A DAY gauge x " Ndle AMLODIPINE 2022-0 Yes [id number] 5mg TAKE 1 [facility] 5 mg tablet 7-11 TABLET BY ity of 00:00: MOUTH [place] 00 EVERY Medical MORNING Branch Insulin 0 Yes [id number] USE TO [facility] [place], 7-11 INJECT ity of Disposable, 00:00: INSULIN [place] (BD [place] 00 FOUR TO Medical 2ND GEN PEN FIVE TIMES Br anch NEEDLE) 32 A DAY gauge x 5/32" Ndle AMLODIPINE Yes [id number] 5mg TAKE 1 [facility] 5 mg tablet 7-11 TABLET BY ity of 00:00: MOUTH [place] 00 EVERY Medical MORNING Branch Insulin 0 Yes [id number] USE TO [facility] [place], 7-11 INJECT ity of Disposable, 00:00: INSULIN [place] (BD [place] 00 FOUR TO Medical 2ND GEN PEN FIVE TIMES Br anch NEEDLE) 32 A DAY gauge x " Ndle AMLODIPINE Yes [id number] 5mg TAKE 1 [facility] 5 mg tablet 7-11 TABLET BY ity of 00:00: MOUTH [place] EVERY Medical MORNING Branch Insulin 0 Yes [id number] USE TO [facility] [place], 7-11 INJECT ity of Disposable, 00:00: INSULIN [facility] (BD [place] 00 FOUR TO Medical 2ND GEN PEN FIVE TIMES Br anch NEEDLE) 32 A DAY gauge x " Ndle AMLODIPINE Yes [id number] 5mg TAKE 1 [facility] 5 mg tablet 7-11 TABLET BY ity of 00:00: MOUTH [place] 00 EVERY Medical MORNING Branch Insulin 2021-0 Yes [id number] USE TO [facility] [place], 7-11 INJECT ity of Disposable, 00:00: INSULIN [facility] (BD [place] 00 FOUR TO Medical 2ND GEN PEN FIVE TIMES Br anch NEEDLE) 32 A DAY gauge x 5" Ndle AMLODIPINE 0 Yes [id number] 5mg TAKE 1 [facility] 5 mg tablet 7-11 TABLET BY ity of 00:00: MOUTH [place] 00 EVERY Medical MORNING Branch Insulin 0 Yes [id number] USE TO [facility] [place], 7-11 INJECT ity of Disposable, 00:00: INSULIN [place] (BD [place] 00 FOUR TO Medical 2ND GEN PEN FIVE TIMES Br anch NEEDLE) 32 A DAY gauge x 5" Ndle AMLODIPINE 2021-0 Yes [id number] 5mg TAKE 1 [facility] 5 mg tablet 7-11 TABLET BY ity of 00:00: MOUTH [place] 00 EVERY Medical MORNING Branch AMLODIPINE 2022- No [id number] 5mg TAKE 1 [facility] 5 mg tablet 06-03 TABLET BY it y of 00:00: 00:00 MOUTH [place] 00 :00 EVERY Medical MORNING Branch Insulin 2021- No [id number] USE TO [facility] [place], 06-03 INJECT ity of Disposable, 00:00: 00:00 INSULIN [place] (BD [place] 00 :00 FOUR TO Medical 2ND GEN PEN FIVE TIMES Br anch NEEDLE) 32 A DAY gauge x 5" Ndle Insulin Yes [id number] 44U inject 44 U nivers Glargine 6-28 Units ity of (BASAGLAR 00:00: under the [facility] as KWIKPEN 00 skin at Medical U-100 bedtime. Branch INSULIN) E11.65 100 unit/mL (3 mL) injection Thyroid, Yes [id number] 90mg Take 1 [facility] [place], 6-28 tablet by ity of (ARMOUR 00:00: mouth [place] THYROID) 90 00 daily Medical mg tablet before Branch breakfast. SITagliptin Yes [id number] 50mg Take 1 [facility] (JANUVIA) 6-28 tablet by ity o f 50 mg 00:00: mouth [place] tablet 00 daily. Medical Branch Thyroid, Yes [id number] 90mg Take 1 [facility] [place], 6-28 tablet by ity of (ARMOUR 00:00: mouth [place] THYROID) 90 00 daily Medical mg tablet before Branch breakfast. SITagliptin Yes [id number] 50mg Take 1 [facility] (JANUVIA) 6-28 tablet by ity o f 50 mg 00:00: mouth [place] tablet 00 daily. Medical Branch Thyroid, Yes [id number] 90mg Take 1 [facility] [place], 6-28 tablet by ity of (ARMOUR 00:00: mouth [place] THYROID) 90 00 daily Medical mg tablet before Branch breakfast. SITagliptin Yes [id number] 50mg Take 1 [facility] (JANUVIA) 6-28 tablet by ity o f 50 mg 00:00: mouth [place] tablet 00 daily. Medical Branch Thyroid, Yes [id number] 90mg Take 1 [facility] [place], 6-28 tablet by ity of (ARMOUR 00:00: mouth [place] THYROID) 90 00 daily Medical mg tablet before Branch breakfast. SITagliptin Yes [id number] 50mg Take 1 [facility] (JANUVIA) 6-28 tablet by ity o f 50 mg 00:00: mouth [place] tablet 00 daily. Medical Branch Thyroid, Yes [id number] 90mg Take 1 [facility] [place], 6-28 tablet by ity of (ARMOUR 00:00: mouth [place] THYROID) 90 00 daily Medical mg tablet before Branch breakfast. SITagliptin Yes [id number] 50mg Take 1 [facility] (JANUVIA) 6-28 tablet by ity o f 50 mg 00:00: mouth [place] tablet 00 daily. Medical Branch Thyroid, Yes [id number] 90mg Take 1 [facility] [place], 6-28 tablet by ity of (ARMOUR 00:00: mouth [place] THYROID) 90 00 daily Medical mg tablet before Branch breakfast. SITagliptin Yes [id number] 50mg Take 1 [facility] (JANUVIA) 6-28 tablet by ity o f 50 mg 00:00: mouth [place] tablet 00 daily. Medical Branch Thyroid, Yes [id number] 90mg Take 1 [facility] [place], 6-28 tablet by ity of (ARMOUR 00:00: mouth [place] THYROID) 90 00 daily Medical mg tablet before Branch breakfast. SITagliptin Yes [id number] 50mg Take 1 [facility] ([facility]) 6-28 tablet by ity o f 50 mg 00:00: mouth [place] tablet 00 daily. [facility] Thyroid, Yes [id number] 90mg Take 1 [facility] [place], 6-28 tablet by ity of (ARMOUR 00:00: mouth [place] THYROID) 90 00 daily Medical mg tablet before Branch breakfast. SITagliptin Yes [id number] 50mg Take 1 [facility] ([facility]UVIA) 6-28 tablet by ity o f 50 mg 00:00: mouth [place] tablet 00 daily. [facility] Thyroid, Yes [id number] 90mg Take 1 [facility] [place], 6-28 tablet by ity of (ARMOUR 00:00: mouth [place] THYROID) 90 00 daily Medical mg tablet before Branch breakfast. SITagliptin 0 Yes [id number] 50mg Take 1 [facility] ([facility]ANUVIA) 6-28 tablet by ity o f 50 mg 00:00: mouth [place] tablet 00 daily. [facility] Thyroid, Yes [id number] 90mg Take 1 [facility] [place], 6-28 tablet by ity of (ARMOUR 00:00: mouth [place] THYROID) 90 00 daily Medical mg tablet before Branch breakfast. SITagliptin 0 Yes [id number] 50mg Take 1 [facility] ([facility]) 6-28 tablet by ity o f 50 mg 00:00: mouth [place] tablet 00 daily. [facility] Thyroid, Yes [id number] 90mg Take 1 [facility] [place], 6-28 tablet by ity of (ARMOUR 00:00: mouth [place] THYROID) 90 00 daily Medical mg tablet before Branch breakfast. SITagliptin Yes [id number] 50mg Take 1 [facility] ([facility]ANUVIA) 6-28 tablet by ity o f 50 mg 00:00: mouth [place] tablet 00 daily. [facility] Thyroid, Yes [id number] 90mg Take 1 [facility] [place], 6-28 tablet by ity of (ARMOUR 00:00: mouth [place] THYROID) 90 00 daily Medical mg tablet before Branch breakfast. SITagliptin 0 Yes [id number] 50mg Take 1 [facility] ([facility]ANUVIA) 6-28 tablet by ity o f 50 mg 00:00: mouth [place] tablet 00 daily. [facility] Thyroid, Yes [id number] 90mg Take 1 [facility] [place], 6-28 tablet by ity of (ARMOUR 00:00: mouth [place] THYROID) 90 00 daily Medical mg tablet before Branch breakfast. SITagliptin Yes [id number] 50mg Take 1 [facility] ([facility]ANUVIA) 6-28 tablet by ity o f 50 mg 00:00: mouth [place] tablet 00 daily. [facility] Thyroid, Yes [id number] 90mg Take 1 [facility] [place], 6-28 tablet by ity of (ARMOUR 00:00: mouth [place] THYROID) 90 00 daily Medical mg tablet before Branch breakfast. SITagliptin 0 Yes [id number] 50mg Take 1 [facility] ([facility]ANUV[facility]) 6-28 tablet by ity o f 50 mg 00:00: mouth [place] tablet 00 daily. [facility] Thyroid, Yes [id number] 90mg Take 1 [facility] [place], 6-28 tablet by ity of (ARMOUR 00:00: mouth [place] THYROID) 90 00 daily Medical mg tablet before Branch breakfast. SITagliptin Yes [id number] 50mg Take 1 [facility] ([facility]ANUV[facility]) 6-28 tablet by ity o f 50 mg 00:00: mouth [place] tablet 00 daily. [facility] Thyroid, Yes [id number] 90mg Take 1 [facility] [place], 6-28 tablet by ity of (ARMOUR 00:00: mouth [place] THYROID) 90 00 daily Medical mg tablet before Branch breakfast. SITagliptin Yes [id number] 50mg Take 1 [facility] ([facility]ANUVIA) 6-28 tablet by ity o f 50 mg 00:00: mouth [place] tablet 00 daily. [facility] Thyroid, Yes [id number] 90mg Take 1 [facility] [place], 6-28 tablet by ity of (ARMOUR 00:00: mouth [place] THYROID) 90 00 daily Medical mg tablet before Branch breakfast. SITagliptin Yes [id number] 50mg Take 1 [facility] ([facility]ANUVIA) 6-28 tablet by ity o f 50 mg 00:00: mouth [place] tablet 00 daily. [facility] Thyroid, Yes [id number] 90mg Take 1 [facility] [place], 6-28 tablet by ity of (ARMOUR 00:00: mouth [place] THYROID) 90 00 daily Medical mg tablet before Branch breakfast. SITagliptin 0 Yes [id number] 50mg Take 1 [facility] ([facility]ANUV[facility]) 6-28 tablet by ity o f 50 mg 00:00: mouth [place] tablet 00 daily. [facility] Thyroid, Yes [id number] 90mg Take 1 [facility] [place], 6-28 tablet by ity of (ARMOUR 00:00: mouth [place] THYROID) 90 00 daily Medical mg tablet before Branch breakfast. SITagliptin 0 Yes [id number] 50mg Take 1 [facility] ([facility]) 6-28 tablet by ity o f 50 mg 00:00: mouth [place] tablet 00 daily. [facility] Thyroid, Yes [id number] 90mg Take 1 [facility] [place], 6-28 tablet by ity of (ARMOUR 00:00: mouth [place] THYROID) 90 00 daily Medical mg tablet before Branch breakfast. SITagliptin 0 Yes [id number] 50mg Take 1 [facility] ([facility]) 6-28 tablet by ity o f 50 mg 00:00: mouth [place] tablet 00 daily. [facility] Thyroid, Yes [id number] 90mg Take 1 [facility] [place], 6-28 tablet by ity of (ARMOUR 00:00: mouth [place] THYROID) 90 00 daily Medical mg tablet before Branch breakfast. SITagliptin Yes [id number] 50mg Take 1 [facility] ([facility]ANUVIA) 6-28 tablet by ity o f 50 mg 00:00: mouth [place] tablet 00 daily. [facility] Thyroid, Yes [id number] 90mg Take 1 [facility] [place], 6-28 tablet by ity of (ARMOUR 00:00: mouth [place] THYROID) 90 00 daily Medical mg tablet before Branch breakfast. SITagliptin Yes [id number] 50mg Take 1 [facility] ([facility]ANUV[facility]) 6-28 tablet by ity o f 50 mg 00:00: mouth [place] tablet 00 daily. [facility] Thyroid, Yes [id number] 90mg Take 1 [facility] [place], 6-28 tablet by ity of (ARMOUR 00:00: mouth [place] THYROID) 90 00 daily Medical mg tablet before Branch breakfast. SITagliptin Yes [id number] 50mg Take 1 [facility] (JANUV[facility]) 6-28 tablet by ity o f 50 mg 00:00: mouth [place] tablet 00 daily. [facility] Thyroid, Yes [id number] 90mg Take 1 [facility] [place], 6-28 tablet by ity of (ARMOUR 00:00: mouth [place] THYROID) 90 00 daily Medical mg tablet before Branch breakfast. SITagliptin 0 Yes [id number] 50mg Take 1 [facility] (JAN[facility]) 6-28 tablet by ity o f 50 mg 00:00: mouth [place] tablet 00 daily. [facility] SITagliptin Yes [id number] 50mg Take 1 [facility] ([facility]AN[facility]) 6-28 tablet by ity o f 50 mg 00:00: mouth [place] tablet 00 daily. [facility] SITagliptin Yes [id number] 50mg Take 1 [facility] ([facility]ANUVIA) 6-28 tablet by ity o f 50 mg 00:00: mouth [place] tablet 00 daily. [facility] SITagliptin Yes [id number] 50mg Take 1 [facility] ([facility]ANUVIA) 6-28 tablet by ity o f 50 mg 00:00: mouth [place] tablet 00 daily. [facility] SITagliptin 3- No [id number] 50mg Take 1 [facility] (JANUVIA) -28 01-05 tablet by ity of 50 mg 00:00: 00:00 mouth [place] tablet 00 :00 daily. [facility] Thyroid, 2021- No [id number] 90mg Take 1 [facility] [place], 05-21 12-21 tablet by ity of (ARMOUR 00:00: 00:00 mouth [place] THYROID) 90 00 :00 daily Medical mg tablet before [place] breakfast. Insulin 2021- No [id number] 44U inject 44 [facility] Glargine 05-21 08-11 Units ity of (BASAGLAR 00:00: 00:00 under the [place] 00 :00 skin at Medical U-100 bedtime. [place] INSULIN) E11.65 100 unit/mL (3 mL) injection levothyroxi Yes Univer s ne 50 mcg 6-25 ity of tablet 00:00: [place] [facility] levothyroxi 0 Yes Univer s ne 50 mcg 6-25 ity of tablet 00:00: [place] [facility] levothyroxi 0 Yes Univer s ne 50 mcg 6-25 ity of tablet 00:00: [place] [facility] levothyroxi 2021-0 Yes Univer s ne 50 mcg 6-25 ity of tablet 00:00: [place] [facility] levothyroxi 0 Yes Univer s ne 50 mcg 6-25 ity of tablet 00:00: [place] [facility] levothyroxi 0 Yes Univer s ne 50 mcg 6-25 ity of tablet 00:00: [place] [facility] levothyroxi 2021-0 Yes Univer s ne 50 mcg 6-25 ity of tablet 00:00: [place] [facility] levothyroxi 2021-0 Yes Univer s ne 50 mcg 6-25 ity of tablet 00:00: [place] 00 [facility] Branch levothyroxi 202-0 Yes Univer s ne 50 mcg 6-25 ity of tablet 00:00: [place] 00 [facility] Branch levothyroxi 2021-0 Yes Univer s ne 50 mcg 6-25 ity of tablet 00:00: [place] 00 [facility] Branch levothyroxi 202-0 Yes Univer s ne 50 mcg 6-25 ity of tablet 00:00: [place] 00 [facility] Branch levothyroxi 2021-0 Yes Univer s ne 50 mcg 6-25 ity of tablet 00:00: [place] 00 [facility] Branch levothyroxi 2021-0 Yes Univer s ne 50 mcg 6-25 ity of tablet 00:00: [place] [address] Medical Branch levothyroxi 2021-0 Yes Univer s ne 50 mcg 6-25 ity of tablet 00:00: [place] [address] Medical Branch levothyroxi 2021-0 Yes Univer s ne 50 mcg 6-25 ity of tablet 00:00: [place] [address] Medical Branch levothyroxi 2021-0 Yes Univer s ne 50 mcg 6-25 ity of tablet 00:00: [place] [address] Medical Branch levothyroxi 2021-0 Yes Univer s ne 50 mcg 6-25 ity of tablet 00:00: [place] [address] Medical Branch levothyroxi 2021-0 Yes Univer s ne 50 mcg 6-25 ity of tablet 00:00: [place] [address] Medical Branch levothyroxi 202-0 2- No Unive rs ne 50 mcg 6-25 11-07 ity of tablet 00:00: 00:00 [place] 00 :00 Medical Branch furosemide 2022-0 Yes [facility] 40 mg 6-10 ity of tablet 00:00: [place] [address] Medical Branch furosemide 2022-0 Yes [facility] 40 mg 6-10 ity of tablet 00:00: [place] [address] Medical Branch furosemide 2022-0 Yes [facility] 40 mg 6-10 ity of tablet 00:00: [place] [address] Medical Branch furosemide 2022-0 Yes [facility] 40 mg 6-10 ity of tablet 00:00: [place] [address] Medical Branch furosemide 2022-0 Yes [facility] 40 mg 6-10 ity of tablet 00:00: [place] [address] Medical Branch furosemide 2022-0 Yes [facility] 40 mg 6-10 ity of tablet 00:00: [place] [address] Medical Branch furosemide 2022-0 Yes [facility] 40 mg 6-10 ity of tablet 00:00: [place] [address] Medical Branch furosemide 2022-0 Yes [facility] 40 mg 6-10 ity of tablet 00:00: [place] [address] Medical Branch furosemide 2022-0 Yes [facility] 40 mg 6-10 ity of tablet 00:00: [place] [address] Medical Branch furosemide 2022-0 Yes [facility] 40 mg 6-10 ity of tablet 00:00: [place] [address] Medical Branch furosemide 2022-0 Yes [facility] 40 mg 6-10 ity of tablet 00:00: [place] [address] Medical Branch furosemide 2022-0 Yes [facility] 40 mg 6-10 ity of tablet 00:00: [place] [address] Medical Branch furosemide 2022-0 Yes [facility] 40 mg 6-10 ity of tablet 00:00: [place] [address] Medical Branch furosemide 2022-0 Yes [facility] 40 mg 6-10 ity of tablet 00:00: [place] [address] Medical Branch furosemide 2022-0 Yes [facility] 40 mg 6-10 ity of tablet 00:00: [place] [address] Medical Branch furosemide 2022-0 Yes [facility] 40 mg 6-10 ity of tablet 00:00: [place] [address] Medical Branch furosemide 2022-0 Yes [facility] 40 mg 6-10 ity of tablet 00:00: [place] [address] Medical Branch furosemide 2022-0 Yes [facility] 40 mg 6-10 ity of tablet 00:00: [place] [address] Medical Branch furosemide 2022-0 Yes [facility] 40 mg 6-10 ity of tablet 00:00: [place] [address] Medical Branch furosemide 2022-0 Yes [facility] 40 mg 6-10 ity of tablet 00:00: [place] [address] Medical Branch furosemide 2022-0 Yes [facility] 40 mg 6-10 ity of tablet 00:00: [place] [address] Medical Branch furosemide 2022-0 Yes [facility] 40 mg 6-10 ity of tablet 00:00: [place] [address] Medical Branch furosemide 2022-0 Yes [facility] 40 mg 6-10 ity of tablet 00:00: [place] [address] Medical Branch furosemide 2022-0 Yes [facility] 40 mg 6-10 ity of tablet 00:00: [place] [address] Medical Branch furosemide 2022-0 Yes [facility] 40 mg 6-10 ity of tablet 00:00: [place] [address] Medical Branch furosemide 2022-0 Yes [facility] 40 mg 6-10 ity of tablet 00:00: [place] [address] Medical Branch furosemide 2022-0 Yes [facility] 40 mg 6-10 ity of tablet 00:00: [place] [address] Medical Branch furosemide 2022-0 Yes [facility] 40 mg 6-10 ity of tablet 00:00: [place] [address] Medical Branch furosemide 2022-0 Yes [facility] 40 mg 6-10 ity of tablet 00:00: [place] [address] Medical Branch furosemide 2022-0 Yes [facility] 40 mg 6-10 ity of tablet 00:00: [place] [address] Medical Branch furosemide 2022-0 Yes [facility] 40 mg 6-10 ity of tablet 00:00: [place] [address] Medical Branch furosemide 2022-0 Yes [facility] 40 mg 6-10 ity of tablet 00:00: [place] [address] Medical Branch furosemide 2022-0 Yes [facility] 40 mg 6-10 ity of tablet 00:00: [place] [address] Medical Branch furosemide 2022-0 Yes [facility] 40 mg 6-10 ity of tablet 00:00: [place] [address] Medical Branch furosemide 2022-0 Yes [facility] 40 mg 6-10 ity of tablet 00:00: [place] [address] Medical Branch furosemide 2022-0 Yes [facility] 40 mg 6-10 ity of tablet 00:00: [place] [address] Medical Branch furosemide 2022-0 Yes [facility] 40 mg 6-10 ity of tablet 00:00: [place] [address] Medical Branch furosemide 2022-0 Yes [facility] 40 mg 6-10 ity of tablet 00:00: [place] [address] Medical Branch furosemide 2022-0 Yes [facility] 40 mg 6-10 ity of tablet 00:00: [place] [address] Medical Branch furosemide 2022-0 Yes [facility] 40 mg 6-10 ity of tablet 00:00: [place] [address] Medical Branch furosemide 2022-0 Yes [facility] 40 mg 6-10 ity of tablet 00:00: [place] [address] Medical Branch furosemide 2022-0 Yes [facility] 40 mg 6-10 ity of tablet 00:00: [place] [address] Medical Branch furosemide 2022-0 Yes [facility] 40 mg 6-10 ity of tablet 00:00: [place] [address] Medical Branch furosemide 2022-0 Yes [facility] 40 mg 6-10 ity of tablet 00:00: [place] [address] Medical Branch furosemide 2022-0 Yes [facility] 40 mg 6-10 ity of tablet 00:00: [place] [address] Medical Branch furosemide 2022-0 Yes [facility] 40 mg 6-10 ity of tablet 00:00: [place] [address] Medical Branch furosemide 2022-0 Yes [facility] 40 mg 6-10 ity of tablet 00:00: [place] [address] Medical Branch furosemide 2022-0 Yes [facility] 40 mg 6-10 ity of tablet 00:00: [place] [address] Medical Branch furosemide 2022-0 Yes [facility] 40 mg 6-10 ity of tablet 00:00: [place] [address] Medical Branch furosemide 2022-0 Yes [facility] 40 mg 6-10 ity of tablet 00:00: [place] [address] Medical Branch furosemide 2022-0 Yes [facility] 40 mg 6-10 ity of tablet 00:00: [place] [facility] furosemide 2022-0 Yes [facility] 40 mg 6-10 ity of tablet 00:00: [place] [address] Medical Branch furosemide 2022-0 Yes [facility] 40 mg 6-10 ity of tablet 00:00: [place] [address] Medical Branch furosemide 2022-0 Yes [facility] 40 mg 6-10 ity of tablet 00:00: [place] [address] Medical Branch furosemide 2022-0 Yes [facility] 40 mg 6-10 ity of tablet 00:00: [place] [address] Medical Branch furosemide 2022-0 Yes [facility] 40 mg 6-10 ity of tablet 00:00: [place] [address] Medical Branch furosemide 2022-0 Yes [facility] 40 mg 6-10 ity of tablet 00:00: [place] [address] Medical Branch furosemide 2022-0 Yes [facility] 40 mg 6-10 ity of tablet 00:00: [place] [address] Medical Branch furosemide 2022-0 Yes [facility] 40 mg 6-10 ity of tablet 00:00: [place] [address] Medical Branch furosemide 2022-0 Yes [facility] 40 mg 6-10 ity of tablet 00:00: [place] [address] Medical Branch furosemide 2022-0 Yes [facility] 40 mg 6-10 ity of tablet 00:00: [place] [address] Medical Branch furosemide 2022-0 Yes [facility] 40 mg 6-10 ity of tablet 00:00: [place] [address] Medical Branch furosemide 2022-0 Yes [facility] 40 mg 6-10 ity of tablet 00:00: [place] [address] Medical Branch furosemide 2022-0 Yes [facility] 40 mg 6-10 ity of tablet 00:00: [place] [address] Medical Branch furosemide 2022-0 Yes [facility] 40 mg 6-10 ity of tablet 00:00: [place] [address] Medical Branch furosemide 2022-0 Yes [facility] 40 mg 6-10 ity of tablet 00:00: [place] [address] Medical Branch furosemide 2022-0 Yes [facility] 40 mg 6-10 ity of tablet 00:00: [place] [address] Medical Branch furosemide 2022-0 Yes [facility] 40 mg 6-10 ity of tablet 00:00: [place] [address] Medical Branch furosemide 2022-0 Yes [facility] 40 mg 6-10 ity of tablet 00:00: [place] [address] Medical Branch furosemide 2022-0 Yes [facility] 40 mg 6-10 ity of tablet 00:00: [place] [address] Medical Branch furosemide 2022-0 Yes [facility] 40 mg 6-10 ity of tablet 00:00: [place] [address] Medical Branch furosemide 2022-0 Yes [facility] 40 mg 6-10 ity of tablet 00:00: [place] [address] Medical Branch furosemide 2022-0 Yes [facility] 40 mg 6-10 ity of tablet 00:00: [place] [address] Medical Branch furosemide 2022-0 Yes [facility] 40 mg 6-10 ity of tablet 00:00: [place] [address] Medical Branch furosemide 2022-0 Yes [facility] 40 mg 6-10 ity of tablet 00:00: [place] [address] Medical Branch furosemide 2022-0 Yes [facility] 40 mg 6-10 ity of tablet 00:00: [place] [address] Medical Branch furosemide 2022-0 Yes [facility] 40 mg 6-10 ity of tablet 00:00: [place] [address] Medical Branch furosemide 2022-0 Yes [facility] 40 mg 6-10 ity of tablet 00:00: [place] [address] Medical Branch furosemide 2022-0 Yes [facility] 40 mg 6-10 ity of tablet 00:00: [place] [address] Medical Branch furosemide 2022-0 Yes [facility] 40 mg 6-10 ity of tablet 00:00: [place] [address] Medical Branch furosemide 2022-0 Yes [facility] 40 mg 6-10 ity of tablet 00:00: [place] [address] Medical Branch furosemide 2022-0 Yes [facility] 40 mg 6-10 ity of tablet 00:00: [place] [address] Medical Branch furosemide 2022-0 Yes [facility] 40 mg 6-10 ity of tablet 00:00: [place] [address] Medical Branch furosemide 2022-0 Yes [facility] 40 mg 6-10 ity of tablet 00:00: [place] [address] Medical Branch furosemide 2022-0 Yes [facility] 40 mg 6-10 ity of tablet 00:00: [place] [address] [facility] Branch furosemide 2022-0 Yes [facility] 40 mg 6-10 ity of tablet 00:00: [place] [address] Medical Branch furosemide 2022-0 Yes [facility] 40 mg 6-10 ity of tablet 00:00: [place] [address] Medical Branch furosemide 2022-0 Yes [facility] 40 mg 6-10 ity of tablet 00:00: [place] [address] Medical Branch furosemide 2022-0 Yes [facility] 40 mg 6-10 ity of tablet 00:00: [place] [address] Medical Branch furosemide 2022-0 Yes [facility] 40 mg 6-10 ity of tablet 00:00: [place] [address] Medical Branch furosemide 2022-0 Yes [facility] 40 mg 6-10 ity of tablet 00:00: [place] [address] Medical Branch furosemide 2022-0 Yes [facility] 40 mg 6-10 ity of tablet 00:00: [place] [address] Medical Branch furosemide 2022-0 Yes [facility] 40 mg 6-10 ity of tablet 00:00: [place] [address] Medical Branch furosemide 2022-0 Yes [facility] 40 mg 6-10 ity of tablet 00:00: [place] [address] Medical Branch furosemide 2022-0 Yes [facility] 40 mg 6-10 ity of tablet 00:00: [place] [address] Medical Branch furosemide 2022-0 Yes [facility] 40 mg 6-10 ity of tablet 00:00: [place] [address] Medical Branch furosemide 2022-0 Yes [facility] 40 mg 6-10 ity of tablet 00:00: [place] [address] Medical Branch furosemide 2022-0 Yes [facility] 40 mg 6-10 ity of tablet 00:00: [place] [address] Medical Branch furosemide 2022-0 Yes [facility] 40 mg 6-10 ity of tablet 00:00: [place] [address] Medical Branch furosemide 2022-0 Yes [facility] 40 mg 6-10 ity of tablet 00:00: [place] [address] Medical Branch furosemide 2022-0 Yes [facility] 40 mg 6-10 ity of tablet 00:00: [place] [address] Medical Branch furosemide 2022-0 Yes [facility] 40 mg 6-10 ity of tablet 00:00: [place] [address] Medical Branch furosemide 2022-0 Yes [facility] 40 mg 6-10 ity of tablet 00:00: [place] [address] Medical Branch furosemide 2022-0 Yes [facility] 40 mg 6-10 ity of tablet 00:00: [place] [address] Medical Branch furosemide 2022-0 Yes [facility] 40 mg 6-10 ity of tablet 00:00: [place] [address] Medical Branch furosemide 2022-0 Yes [facility] 40 mg 6-10 ity of tablet 00:00: [place] [address] Medical Branch furosemide 2022-0 Yes [facility] 40 mg 6-10 ity of tablet 00:00: [place] [address] Medical Branch furosemide 2022-0 Yes [facility] 40 mg 6-10 ity of tablet 00:00: [place] [address] Medical Branch furosemide 2022-0 Yes [facility] 40 mg 6-10 ity of tablet 00:00: [place] [address] Medical Branch furosemide 2022-0 Yes [facility] 40 mg 6-10 ity of tablet 00:00: [place] [address] Medical Branch isosorbide 2022-0 Yes 30mg Take 1 Unive rs mononitrate 4-22 tablet by ity of 30 mg 24 hr 00:00: mouth [place] tablet 00 daily. Medical Indication Branch s: CAD isosorbide 2022-0 Yes 30mg Take 1 Unive rs mononitrate 4-22 tablet by ity of 30 mg 24 hr 00:00: mouth [place] tablet 00 daily. Medical Indication Branch s: CAD isosorbide 2022-0 Yes 30mg Take 1 Unive rs mononitrate 4-22 tablet by ity of 30 mg 24 hr 00:00: mouth [place] tablet 00 daily. Medical Indication Branch s: CAD isosorbide 2022-0 Yes 30mg Take 1 Unive rs mononitrate 4-22 tablet by ity of 30 mg 24 hr 00:00: mouth [place] tablet 00 daily. Medical Indication Branch s: CAD isosorbide 2022-0 Yes 30mg Take 1 Unive rs mononitrate 4-22 tablet by ity of 30 mg 24 hr 00:00: mouth [place] tablet 00 daily. Medical Indication Branch s: CAD isosorbide 2022-0 Yes 30mg Take 1 Unive rs mononitrate 4-22 tablet by ity of 30 mg 24 hr 00:00: mouth [place] tablet 00 daily. Medical Indication Branch s: CAD isosorbide 2022-0 Yes 30mg Take 1 Unive rs mononitrate 4-22 tablet by ity of 30 mg 24 hr 00:00: mouth [place] tablet 00 daily. Medical Indication Branch s: CAD isosorbide 2022-0 Yes 30mg Take 1 Unive rs mononitrate 4-22 tablet by ity of 30 mg 24 hr 00:00: mouth [place] tablet 00 daily. Medical Indication Branch s: CAD isosorbide 2022-0 Yes 30mg Take 1 Unive rs mononitrate 4-22 tablet by ity of 30 mg 24 hr 00:00: mouth [place] tablet 00 daily. Medical Indication Branch s: CAD isosorbide 2022-0 Yes 30mg Take 1 Unive rs mononitrate 4-22 tablet by ity of 30 mg 24 hr 00:00: mouth [place] tablet 00 daily. Medical Indication Branch s: CAD isosorbide 2022-0 Yes 30mg Take 1 Unive rs mononitrate 4-22 tablet by ity of 30 mg 24 hr 00:00: mouth [place] tablet 00 daily. Medical Indication Branch s: CAD isosorbide 2022-0 Yes 30mg Take 1 Unive rs mononitrate 4-22 tablet by ity of 30 mg 24 hr 00:00: mouth [place] tablet 00 daily. Medical Indication Branch s: CAD isosorbide 2-0 Yes 30mg Take 1 Unive rs mononitrate 4-22 tablet by ity of 30 mg 24 hr 00:00: mouth [place] tablet 00 daily. Medical Indication Branch s: CAD isosorbide 2-0 Yes 30mg Take 1 Unive rs mononitrate 4-22 tablet by ity of 30 mg 24 hr 00:00: mouth [place] tablet 00 daily. Medical Indication Branch s: CAD isosorbide 2-0 Yes 30mg Take 1 Unive rs mononitrate 4-22 tablet by ity of 30 mg 24 hr 00:00: mouth [place] tablet 00 daily. Medical Indication Branch s: CAD isosorbide 2021-0 Yes 30mg Take 1 Unive rs mononitrate 4-22 tablet by ity of 30 mg 24 hr 00:00: mouth [place] tablet 00 daily. Medical Indication Branch s: CAD isosorbide 2021-0 Yes 30mg Take 1 Unive rs mononitrate 4-22 tablet by ity of 30 mg 24 hr 00:00: mouth [place] tablet 00 daily. Medical Indication Branch s: CAD isosorbide 2-0 Yes 30mg Take 1 Unive rs mononitrate 4-22 tablet by ity of 30 mg 24 hr 00:00: mouth [place] tablet 00 daily. Medical Indication Branch s: CAD isosorbide 2021-0 Yes 30mg Take 1 Unive rs mononitrate 4-22 tablet by ity of 30 mg 24 hr 00:00: mouth [place] tablet 00 daily. Medical Indication Branch s: CAD isosorbide 2021-0 2021- No 30mg Take 1 Univ ers mononitrate 4-22 11-07 tablet by it y of 30 mg 24 hr 00:00: [place] :00 daily. Medical Indication Branch s: CAD levothyroxi 2021-0 2021- No Other 50ug Take 1 Un yolanda ne 3-30 07-27 specified tablet (50 ity of (Synthroid) 00:00: 00:00 anemia mcg) by [place] 50 mcg 00 :00 mouth [facility] tablet daily. [facility] atorvastati 2022-0 Yes 80mg Take 1 Univ ers n 80 mg 3-29 tablet by ity of tablet 00:00: mouth at [place] 00 bedtime. Medical Indication Branch s: CAD atorvastati 2022-0 Yes 80mg Take 1 Univ ers n 80 mg 3-29 tablet by ity of tablet 00:00: mouth at [place] 00 bedtime. Medical Indication Branch s: CAD atorvastati 2022-0 Yes 80mg Take 1 Univ ers n 80 mg 3-29 tablet by ity of tablet 00:00: mouth at [place] 00 bedtime. Medical Indication Branch s: CAD atorvastati 2022-0 Yes 80mg Take 1 Univ ers n 80 mg 3-29 tablet by ity of tablet 00:00: mouth at [place] 00 bedtime. Medical Indication Branch s: CAD atorvastati 2022-0 Yes 80mg Take 1 Univ ers n 80 mg 3-29 tablet by ity of tablet 00:00: mouth at [place] 00 bedtime. Medical Indication Branch s: CAD atorvastati 2022-0 Yes 80mg Take 1 Univ ers n 80 mg 3-29 tablet by ity of tablet 00:00: mouth at [place] [address] bedtime. Medical Indication Branch s: CAD atorvastati 2022-0 Yes 80mg Take 1 Univ ers n 80 mg 3-29 tablet by ity of tablet 00:00: mouth at [place] [address] bedtime. Medical Indication Branch s: CAD atorvastati 2022-0 Yes 80mg Take 1 Univ ers n 80 mg 3-29 tablet by ity of tablet 00:00: mouth at [place] [address] bedtime. Medical Indication Branch s: CAD atorvastati 2022-0 Yes 80mg Take 1 Univ ers n 80 mg 3-29 tablet by ity of tablet 00:00: mouth at [place] 00 bedtime. Medical Indication Branch s: CAD atorvastati 2022-0 Yes 80mg Take 1 Univ ers n 80 mg 3-29 tablet by ity of tablet 00:00: mouth at [place] [address] bedtime. Medical Indication Branch s: CAD atorvastati 2022-0 Yes 80mg Take 1 Univ ers n 80 mg 3-29 tablet by ity of tablet 00:00: mouth at [place] [address] bedtime. Medical Indication Branch s: CAD atorvastati 2022-0 Yes 80mg Take 1 [facility] 80 mg 3-29 tablet by [facility] tablet 00:00: mouth at [place] [address] bedtime. [facility] s: CAD atorvastati 2022-0 Yes 80mg Take 1 [facility] 80 mg 3-29 tablet by [facility] of tablet 00:00: mouth at [place] [address] bedtime. Medical Indication Branch s: CAD atorvastati 2022-0 Yes 80mg Take 1 [facility] 80 mg 3-29 tablet by [facility] of tablet 00:00: mouth at [place] [address] bedtime. Medical Indication Branch s: CAD atorvastati 2022-0 Yes 80mg Take 1 [facility] 80 mg 3-29 tablet by [facility] of tablet 00:00: mouth at [place] [address] bedtime. Medical Indication Branch s: CAD atorvastati 2022-0 Yes 80mg Take 1 [facility] 80 mg 3-29 tablet by [facility] of tablet 00:00: mouth at [place] [address] bedtime. Medical Indication Branch s: CAD atorvastati 2022-0 Yes 80mg Take 1 [facility] 80 mg 3-29 tablet by [facility] of tablet 00:00: mouth at [place] [address] bedtime. Medical Indication Branch s: CAD atorvastati 2022-0 Yes 80mg Take 1 [facility] 80 mg 3-29 tablet by [facility] of tablet 00:00: mouth at [place] [address] bedtime. Medical Indication Branch s: CAD atorvastati 2022-0 Yes 80mg Take 1 [facility] 80 mg 3-29 tablet by [facility] of tablet 00:00: mouth at [place] [address] bedtime. Medical Indication Branch s: CAD atorvastati 2022-0 Yes 80mg Take 1 [facility] 80 mg 3-29 tablet by [facility] of tablet 00:00: mouth at [place] [address] bedtime. Medical Indication Branch s: CAD atorvastati 2022-0 Yes 80mg Take 1 [facility] 80 mg 3-29 tablet by [facility] of tablet 00:00: mouth at [place] [address] bedtime. Medical Indication Branch s: CAD atorvastati 2022-0 Yes 80mg Take 1 [facility] 80 mg 3-29 tablet by [facility] of tablet 00:00: mouth at [place] [address] bedtime. Medical Indication Branch s: CAD atorvastati 2022-0 2022- No 80mg Take 1 [facility] 80 mg 3-29 11-15 tablet by [facility] of tablet 00:00: 00:00 mouth at [place] 00 :00 bedtime. Medical Indication Branch s: CAD spironolact 2022-0 Yes [facility] one 25 mg 3-04 ity of tablet 00:00: [place] 00 [facility] spironolact 2022-0 Yes [facility] one 25 mg 3-04 ity of tablet 00:00: [place] 00 [facility] spironolact 2022-0 Yes [facility] one 25 mg 3-04 ity of tablet 00:00: [place] 00 [facility] spironolact 2022-0 Yes [facility] one 25 mg 3-04 ity of tablet 00:00: [place] 00 [facility] spironolact 2022-0 Yes [facility] one 25 mg 3-04 ity of tablet 00:00: [place] 00 [facility] spironolact 2022-0 Yes [facility] one 25 mg 3-04 ity of tablet 00:00: [place] [address] [facility] Branch spironolact 2022-0 Yes [facility] one 25 mg 3-04 ity of tablet 00:00: [place] 00 [facility] spironolact 2022-0 Yes [facility] one 25 mg 3-04 ity of tablet 00:00: [place] [address] [facility] Branch spironolact 2022-0 Yes [facility] one 25 mg 3-04 ity of tablet 00:00: [place] 00 [facility] spironolact 2022-0 Yes [facility] one 25 mg 3-04 ity of tablet 00:00: [place] [address] [facility] Branch spironolact 2022-0 Yes [facility] one 25 mg 3-04 ity of tablet 00:00: [place] 00 [facility] spironolact 2022-0 Yes [facility] one 25 mg 3-04 ity of tablet 00:00: [place] 00 [facility] spironolact 2022-0 Yes [facility] one 25 mg 3-04 ity of tablet 00:00: [place] 00 [facility] spironolact 2022-0 Yes [facility] one 25 mg 3-04 ity of tablet 00:00: [place] 00 [facility] spironolact 2022-0 Yes [facility] one 25 mg 3-04 ity of tablet 00:00: [place] 00 [facility] spironolact 2022-0 Yes [facility] one 25 mg 3-04 ity of tablet 00:00: [place] 00 [facility] spironolact 2022-0 Yes [facility] one 25 mg 3-04 ity of tablet 00:00: [place] 00 [facility] spironolact 2022-0 Yes [facility] one 25 mg 3-04 ity of tablet 00:00: [place] 00 [facility] spironolact 2022-0 Yes [facility] one 25 mg 3-04 ity of tablet 00:00: [place] 00 [facility] spironolact 2022-0 Yes [facility] one 25 mg 3-04 ity of tablet 00:00: [place] 00 [facility] spironolact 2022-0 Yes [facility] one 25 mg 3-04 ity of tablet 00:00: [place] 00 [facility] spironolact 2022-0 Yes [facility] one 25 mg 3-04 ity of tablet 00:00: [place] 00 [facility] spironolact 2022-0 Yes [facility] one 25 mg 3-04 ity of tablet 00:00: [place] 00 [facility] spironolact 2022-0 Yes [facility] one 25 mg 3-04 ity of tablet 00:00: [place] 00 [facility] spironolact 2022-0 Yes [facility] one 25 mg 3-04 ity of tablet 00:00: [place] 00 [facility] spironolact 2022-0 Yes [facility] one 25 mg 3-04 ity of tablet 00:00: [place] 00 [facility] spironolact 2022-0 Yes [facility] one 25 mg 3-04 ity of tablet 00:00: [place] 00 [facility] spironolact 2022-0 Yes [facility] one 25 mg 3-04 ity of tablet 00:00: [place] 00 [facility] spironolact 2022-0 Yes [facility] one 25 mg 3-04 ity of tablet 00:00: [place] [address] [facility] Branch spironolact 2022-0 Yes [facility] one 25 mg 3-04 ity of tablet 00:00: [place] 00 [facility] spironolact 2022-0 Yes [facility] one 25 mg 3-04 ity of tablet 00:00: [place] 00 [facility] spironolact 2022-0 Yes [facility] one 25 mg 3-04 ity of tablet 00:00: [place] 00 [facility] spironolact 2022-0 Yes [facility] one 25 mg 3-04 ity of tablet 00:00: [place] 00 [facility] spironolact 2022-0 Yes [facility] one 25 mg 3-04 ity of tablet 00:00: [place] 00 [facility] spironolact 2022-0 Yes [facility] one 25 mg 3-04 ity of tablet 00:00: [place] 00 [facility] spironolact 2022-0 Yes [facility] one 25 mg 3-04 ity of tablet 00:00: [place] 00 [facility] spironolact 2022-0 Yes [facility] one 25 mg 3-04 ity of tablet 00:00: [place] 00 [facility] spironolact 2022-0 Yes [facility] one 25 mg 3-04 ity of tablet 00:00: [place] 00 [facility] spironolact 2022-0 Yes [facility] one 25 mg 3-04 ity of tablet 00:00: [place] [address] [facility] Branch spironolact 2022-0 Yes Un[facility] one 25 mg 3-04 ity of tablet 00:00: [place] [address] [facility] Branch spironolact 2022-0 Yes [facility] one 25 mg 3-04 ity of tablet 00:00: [place] 00 [facility] spironolact 2022-0 Yes [facility] one 25 mg 3-04 ity of tablet 00:00: [place] [address] [facility] Branch spironolact 2022-0 Yes [facility] one 25 mg 3-04 ity of tablet 00:00: [place] [address] [facility] Branch spironolact 2022-0 Yes Un[facility] one 25 mg 3-04 ity of tablet 00:00: [place] [address] [facility] Branch spironolact 2022-0 Yes [facility] one 25 mg 3-04 ity of tablet 00:00: [place] 00 [facility] spironolact 2022-0 Yes [facility] one 25 mg 3-04 ity of tablet 00:00: [place] [address] [facility] Branch spironolact 2022-0 Yes [facility] one 25 mg 3-04 ity of tablet 00:00: [place] 00 [facility] spironolact 2022-0 Yes [facility] one 25 mg 3-04 ity of tablet 00:00: [place] [address] [facility] spironolact 2022-0 Yes [facility] one 25 mg 3-04 ity of tablet 00:00: [place] 00 [facility] spironolact 2022-0 Yes [facility] one 25 mg 3-04 ity of tablet 00:00: [place] 00 [facility] spironolact 2022-0 Yes [facility] one 25 mg 3-04 ity of tablet 00:00: [place] 00 [facility] spironolact 2022-0 Yes [facility] one 25 mg 3-04 ity of tablet 00:00: [place] 00 [facility] spironolact 2022-0 Yes [facility] one 25 mg 3-04 ity of tablet 00:00: [place] 00 [facility] spironolact 2022-0 Yes [facility] one 25 mg 3-04 ity of tablet 00:00: [place] 00 [facility] spironolact 2022-0 Yes [facility] one 25 mg 3-04 ity of tablet 00:00: [place] 00 [facility] spironolact 2022-0 Yes [facility] one 25 mg 3-04 ity of tablet 00:00: [place] 00 [facility] spironolact 2022-0 Yes [facility] one 25 mg 3-04 ity of tablet 00:00: [place] 00 [facility] spironolact 2022-0 Yes [facility] one 25 mg 3-04 ity of tablet 00:00: [place] 00 [facility] spironolact 2022-0 Yes [facility] one 25 mg 3-04 ity of tablet 00:00: [place] 00 [facility] spironolact 2022-0 Yes [facility] one 25 mg 3-04 ity of tablet 00:00: [place] 00 [facility] spironolact 2022-0 Yes [facility] one 25 mg 3-04 ity of tablet 00:00: [place] 00 [facility] spironolact 2022-0 Yes [facility] one 25 mg 3-04 ity of tablet 00:00: [place] 00 [facility] spironolact 2022-0 Yes [facility] one 25 mg 3-04 ity of tablet 00:00: [place] 00 [facility] spironolact 2022-0 Yes [facility] one 25 mg 3-04 ity of tablet 00:00: [place] 00 [facility] spironolact 2022-0 Yes [facility] one 25 mg 3-04 ity of tablet 00:00: [place] 00 [facility] spironolact 2022-0 Yes [facility] one 25 mg 3-04 ity of tablet 00:00: [place] 00 [facility] spironolact 2022-0 Yes Un[facility] one 25 mg 3-04 ity of tablet 00:00: [place] 00 [facility] spironolact 2022-0 Yes [facility] one 25 mg 3-04 ity of tablet 00:00: [place] 00 [facility] spironolact 2022-0 Yes [facility] one 25 mg 3-04 ity of tablet 00:00: [place] 00 [facility] spironolact 2022-0 Yes [facility] one 25 mg 3-04 ity of tablet 00:00: [place] 00 [facility] spironolact 2022-0 Yes [facility] one 25 mg 3-04 ity of tablet 00:00: [place] 00 [facility] spironolact 2022-0 Yes [facility] one 25 mg 3-04 ity of tablet 00:00: [place] 00 [facility] spironolact 2022-0 Yes [facility] one 25 mg 3-04 ity of tablet 00:00: [place] 00 [facility] spironolact 2022-0 Yes [facility] one 25 mg 3-04 ity of tablet 00:00: [place] 00 [facility] spironolact 2022-0 Yes [facility] one 25 mg 3-04 ity of tablet 00:00: [place] 00 [facility] spironolact 2022-0 Yes [facility] one 25 mg 3-04 ity of tablet 00:00: [place] 00 [facility] spironolact 2022-0 Yes [facility] one 25 mg 3-04 ity of tablet 00:00: [place] 00 [facility] spironolact 2022-0 Yes [facility] one 25 mg 3-04 ity of tablet 00:00: [place] 00 [facility] spironolact 2022-0 Yes Un[facility] one 25 mg 3-04 ity of tablet 00:00: [place] [address] [facility] spironolact 2022-0 Yes Un[facility] one 25 mg 3-04 ity of tablet 00:00: [place] 00 [facility] spironolact 2022-0 Yes Un[facility] one 25 mg 3-04 ity of tablet 00:00: [place] 00 [facility] spironolact 2022-0 Yes [facility] one 25 mg 3-04 ity of tablet 00:00: [place] 00 [facility] spironolact 2022-0 Yes [facility] one 25 mg 3-04 ity of tablet 00:00: [place] 00 [facility] spironolact 2022-0 Yes [facility] one 25 mg 3-04 ity of tablet 00:00: [place] 00 [facility] spironolact 2022-0 Yes [facility] one 25 mg 3-04 ity of tablet 00:00: [place] 00 [facility] spironolact 2022-0 Yes [facility] one 25 mg 3-04 ity of tablet 00:00: [place] 00 [facility] spironolact 2022-0 Yes [facility] one 25 mg 3-04 ity of tablet 00:00: [place] 00 [facility] spironolact 2022-0 Yes [facility] one 25 mg 3-04 ity of tablet 00:00: [place] 00 [facility] spironolact 2022-0 Yes Un[facility] one 25 mg 3-04 ity of tablet 00:00: [place] [address] [facility] Branch spironolact 2022-0 Yes Un[facility] one 25 mg 3-04 ity of tablet 00:00: [place] [address] [facility] Branch spironolact 2022-0 Yes Un[facility] one 25 mg 3-04 ity of tablet 00:00: [place] 00 [facility] spironolact 2022-0 Yes Un[facility] one 25 mg 3-04 ity of tablet 00:00: [place] [address] [facility] Branch spironolact 2022-0 Yes Un[facility] one 25 mg 3-04 ity of tablet 00:00: [place] [address] [facility] spironolact 2022-0 Yes Un[facility] one 25 mg 3-04 ity of tablet 00:00: [place] [address] [facility] Branch spironolact 2022-0 Yes [facility] one 25 mg 3-04 ity of tablet 00:00: [place] 00 [facility] spironolact 2022-0 Yes Un[facility] one 25 mg 3-04 ity of tablet 00:00: [place] [address] [facility] spironolact 2022-0 Yes Un[facility] one 25 mg 3-04 ity of tablet 00:00: [place] 00 [facility] spironolact 2022-0 Yes Un[facility] one 25 mg 3-04 ity of tablet 00:00: [place] [address] [facility] spironolact 2022-0 Yes [facility] one 25 mg 3-04 ity of tablet 00:00: [place] 00 [facility] spironolact 2022-0 Yes [facility] one 25 mg 3-04 ity of tablet 00:00: [place] 00 [facility] spironolact 2022-0 Yes [facility] one 25 mg 3-04 ity of tablet 00:00: [place] 00 [facility] spironolact 2022-0 Yes [facility] one 25 mg 3-04 ity of tablet 00:00: [place] 00 [facility] spironolact 2022-0 Yes [facility] one 25 mg 3-04 ity of tablet 00:00: [place] 00 [facility] spironolact 2022-0 Yes [facility] one 25 mg 3-04 ity of tablet 00:00: [place] 00 [facility] spironolact 2022-0 Yes [facility] one 25 mg 3-04 ity of tablet 00:00: [place] 00 [facility] spironolact 2022-0 Yes [facility] one 25 mg 3-04 ity of tablet 00:00: [place] 00 [facility] spironolact 2022-0 Yes [facility] one 25 mg 3-04 ity of tablet 00:00: [place] 00 [facility] spironolact 2022-0 Yes [facility] one 25 mg 3-04 ity of tablet 00:00: [place] 00 [facility] spironolact 2022-0 Yes [facility] one 25 mg 3-04 ity of tablet 00:00: [place] 00 [facility] spironolact 2022-0 Yes [facility] one 25 mg 3-04 ity of tablet 00:00: [place] 00 [facility] spironolact 2022-0 Yes [facility] one 25 mg 3-04 ity of tablet 00:00: [place] 00 [facility] Cyanocobala 2021-0 Yes 1{tbl} Place 1 U n[facility] min 2-28 tablet ity of ([place] 11:[place] B-12[place] 2,500 15 tongue [facility]ica [facility] mcg [facility] daily. Branch Cyanocobala 0 Yes 1{tbl} Place 1 U n[facility] min 2-28 tablet ity of (V[place]IN 11:[place]: [place] B-12[place] 2,500 15 tongue Medica l mcg Subl daily. Branch Cyanocobala 0 Yes 1{tbl} Place 1 U n[facility] min 2-28 tablet ity of (V[place]IN 11:[place]: [place] B-12[place] 2,500 15 tongue Medica l mcg Subl daily. Branch Cyanocobala Yes 1{tbl} Place 1 U n[facility] min 2-28 tablet ity of ([place]IN 11:38: [place] B-12[place] 2,500 15 tongue Medica l mcg Subl daily. Branch Cyanocobala Yes 1{tbl} Place 1 U n[facility] min 2-28 tablet ity of (V[place]AMIN 11:38: [place] B[place]12[place] 2,500 15 tongue Medica l mcg Subl daily. Branch Cyanocobala Yes 1{tbl} Place 1 U n[facility] min 2-28 tablet ity of (V[place]AMIN 11:38: [place] B-12[place] 2,500 15 tongue Medica l mcg Subl daily. Branch Cyanocobala Yes 1{tbl} Place 1 U n[facility] min 2-28 tablet ity of (VITAMIN 11:38: [place] B-12[place] 2,500 15 tongue Medica l mcg Subl daily. Branch Cyanocobala Yes 1{tbl} Place 1 U n[facility] min 2-28 tablet ity of (VITAMIN 11:38: [place] B-12[place] 2,500 15 tongue Medica l mcg Subl daily. Branch Cyanocobala Yes 1{tbl} Place 1 U n[facility] min 2-28 tablet ity of (VITAMIN 11:38: [place] B-12[place] 2,500 15 tongue Medica l mcg Subl daily. Branch Cyanocobala Yes 1{tbl} Place 1 U nivers min 2-28 tablet ity of (VITAMIN 11:38: [place] B-12[place] 2,500 15 tongue Medica l mcg Subl daily. Branch Cyanocobala Yes 1{tbl} Place 1 U nivers min 2-28 tablet ity of (V[place]AMIN 11:38: [place] B-12[place] 2,500 15 tongue Medica l mcg Subl daily. Branch Cyanocobala Yes 1{tbl} Place 1 U nivers min 2-28 tablet ity of (V[place]AMIN 11:38: [place] B-12[place] 2,500 15 tongue Medica l mcg Subl daily. Branch Cyanocobala Yes 1{tbl} Place 1 U nivers min 2-28 tablet ity of (VITAMIN 11:38: [place] B-12[place] 2,500 15 tongue Medica l mcg Subl daily. Branch Cyanocobala Yes 1{tbl} Place 1 U nivers min 2-28 tablet ity of (VITAMIN 11:38: [place] B[place]12[place] 2,500 15 tongue Medica l mcg Subl daily. Branch Cyanocobala Yes 1{tbl} Place 1 U nivers min 2-28 tablet ity of (VITAMIN 11:38: [place] B-12[place] 2,500 15 tongue Medica l mcg Subl daily. Branch Cyanocobala Yes 1{tbl} Place 1 U nivers min 2-28 tablet ity of (VITAMIN 11:38: [place] B-12[place] 2,500 15 tongue Medica l mcg Subl daily. Branch Cyanocobala Yes 1{tbl} Place 1 U nivers min 2-28 tablet ity of (VITAMIN 11:38: [place] B-12[place] 2,500 15 tongue Medica l mcg Subl daily. Branch Cyanocobala Yes 1{tbl} Place 1 U nivers min 2-28 tablet ity of (VITAMIN 11:38: [place] B-12[place] 2,500 15 tongue Medica l mcg Subl daily. Branch Cyanocobala Yes 1{tbl} Place 1 U nivers min 2-28 tablet ity of (VITAMIN 11:38: [place] B-12[place] 2,500 15 tongue Medica l mcg Subl daily. Branch Cyanocobala Yes 1{tbl} Place 1 U nivers min 2-28 tablet ity of (VITAMIN 11:38: [place] B-12[place] 2,500 15 tongue Medica l mcg Subl daily. Branch Cyanocobala Yes 1{tbl} Place 1 U nivers min 2-28 tablet ity of (VITAMIN 11:38: [place] B-12[place] 2,500 15 tongue Medica l mcg Subl daily. Branch Cyanocobala Yes 1{tbl} Place 1 U nivers min 2-28 tablet ity of (VITAMIN 11:38: [place] B-12[place] 2,500 15 tongue Medica l mcg Subl daily. Branch Cyanocobala Yes 1{tbl} Place 1 U nivers min 2-28 tablet ity of (VITAMIN 11:38: [place] B[place]12[place] 2,500 15 tongue Medica l mcg Subl daily. Branch Cyanocobala Yes 1{tbl} Place 1 U nivers min 2-28 tablet ity of (VITAMIN 11:38: [place] B[place]12[place] 2,500 15 tongue Medica l mcg Subl daily. Branch Cyanocobala Yes 1{tbl} Place 1 U nivers min 2-28 tablet ity of (VITAMIN 11:38: [place] B-12[place] 2,500 15 tongue Medica l mcg Subl daily. Branch Cyanocobala Yes 1{tbl} Place 1 U nivers min 2-28 tablet ity of (VITAMIN 11:38: [place] B-12[place] 2,500 15 tongue Medica l mcg Subl daily. Branch Cyanocobala Yes 1{tbl} Place 1 U nivers min 2-28 tablet ity of (VITAMIN 11:38: [place] B[place]12[place] 2,500 15 tongue Medica l mcg Subl daily. Branch Cyanocobala Yes 1{tbl} Place 1 U nivers min 2-28 tablet ity of (VITAMIN 11:38: [place] B[place]12[place] 2,500 15 tongue Medica l mcg Subl daily. Branch Cyanocobala Yes 1{tbl} Place 1 U nivers min 2-28 tablet ity of (VITAMIN 11:38: [place] B[place]12[place] 2,500 15 tongue Medica l mcg Subl daily. Branch Cyanocobala Yes 1{tbl} Place 1 U nivers min 2-28 tablet ity of ([place]ITAMIN 11:38: [place] B[place]12[place] 2,500 15 tongue Medica l mcg Subl daily. Branch Cyanocobala Yes 1{tbl} Place 1 U nivers min 2-28 tablet ity of (VITAMIN 11:38: [place] B[place]12[place] 2,500 15 tongue Medica l mcg Subl daily. Branch Cyanocobala Yes 1{tbl} Place 1 U nivers min 2-28 tablet ity of (V[place]AMIN 11:38: [place] B[place]12[place] 2,500 15 tongue Medica l mcg Subl daily. Branch Cyanocobala Yes 1{tbl} Place 1 U nivers min 2-28 tablet ity of (VITAMIN 11:38: [place] B[place]12[place] 2,500 15 tongue Medica l mcg Subl daily. Branch Cyanocobala Yes 1{tbl} Place 1 U nivers min 2-28 tablet ity of ([place]AMIN 11:38: [place] B[place]12[place] 2,500 15 tongue Medica l mcg Subl daily. Branch Cyanocobala Yes 1{tbl} Place 1 U nivers min 2-28 tablet ity of (VITAMIN 11:38: [place] B[place]12[place] 2,500 15 tongue Medica l mcg Subl daily. Branch Cyanocobala Yes 1{tbl} Place 1 U nivers min 2-28 tablet ity of (VITAMIN 11:38: [place] B[place]12[place] 2,500 15 tongue Medica l mcg Subl daily. Branch Cyanocobala Yes 1{tbl} Place 1 U nivers min 2-28 tablet ity of (VITAMIN 11:38: [place] B[place]12[place] 2,500 15 tongue Medica l mcg Subl daily. Branch Cyanocobala Yes 1{tbl} Place 1 U nivers min 2-28 tablet ity of (VITAMIN 11:38: [place] B[place]12[place] 2,500 15 tongue Medica l mcg Subl daily. Branch Cyanocobala Yes 1{tbl} Place 1 U nivers min 2-28 tablet ity of ([place]AMIN 11:38: [place] B[place]12[place] 2,500 15 tongue Medica l mcg Subl daily. Branch Cyanocobala Yes 1{tbl} Place 1 U nivers min 2-28 tablet ity of ([place]AMIN 11:38: [place] B[place]12[place] 2,500 15 tongue Medica l mcg Subl daily. Branch Cyanocobala Yes 1{tbl} Place 1 U nivers min 2-28 tablet ity of ([place]AMIN 11:38: [place] B[place]12[place] 2,500 15 tongue Medica l mcg Subl daily. Branch Cyanocobala Yes 1{tbl} Place 1 U nivers min 2-28 tablet ity of ([place]AMIN 11:38: [place] B[place]12[place] 2,500 15 tongue Medica l mcg Subl daily. Branch Cyanocobala Yes 1{tbl} Place 1 U nivers min 2-28 tablet ity of ([place]AMIN 11:38: [place] B[place]12[place] 2,500 15 tongue Medica l mcg Subl daily. Branch Cyanocobala Yes 1{tbl} Place 1 U nivers min 2-28 tablet ity of ([place]AMIN 11:38: [place] B[place]12[place] 2,500 15 tongue Medica l mcg Subl daily. Branch Cyanocobala Yes 1{tbl} Place 1 U nivers min 2-28 tablet ity of ([place]ITAMIN 11:38: [place] B[place]12[place] 2,500 15 tongue Medica l mcg Subl daily. Branch Cyanocobala Yes 1{tbl} Place 1 U nivers min 2-28 tablet ity of (VITAMIN 11:38: [place] B[place]12[place] 2,500 15 tongue Medica l mcg Subl daily. Branch Cyanocobala Yes 1{tbl} Place 1 U nivers min 2-28 tablet ity of ([place]AMIN 11:38: [place]12[place] 2,500 15 tongue Medica l mcg Subl daily. Branch Cyanocobala Yes 1{tbl} Place 1 U nivers min 2-28 tablet ity of (V[place]AMIN 11:38: [place] B[place]12[place] 2,500 15 tongue Medica l mcg Subl daily. Branch Cyanocobala Yes 1{tbl} Place 1 U nivers min 2-28 tablet ity of (VITAMIN 11:38: [place] B[place]12[place] 2,500 15 tongue Medica l mcg Subl daily. Branch Cyanocobala Yes 1{tbl} Place 1 U nivers min 2-28 tablet ity of (V[place]AMIN 11:38: [place] B[place]12[place] 2,500 15 tongue Medica l mcg Subl daily. Branch Cyanocobala Yes 1{tbl} Place 1 U nivers min 2-28 tablet ity of (VITAMIN 11:38: [place] B[place]12[place] 2,500 15 tongue Medica l mcg Subl daily. Branch Cyanocobala Yes 1{tbl} Place 1 U nivers min 2-28 tablet ity of (VITAMIN 11:38: [place] B[place] 2,500 15 tongue Medica l mcg Subl daily. Branch Cyanocobala Yes 1{tbl} Place 1 U nivers min 2-28 tablet ity of (VITAMIN 11:38: [place] B[place] 2,500 15 tongue Medica l mcg Subl daily. Branch Cyanocobala Yes 1{tbl} Place 1 U nivers min 2-28 tablet ity of (VITAMIN 11:38: [place] 2,500 15 tongue Medica l mcg Subl daily. Branch Cyanocobala Yes 1{tbl} Place 1 U nivers min 2-28 tablet ity of (VITAMIN 11:38: [place] B[place]12[place] 2,500 15 tongue Medica l mcg Subl daily. Branch Cyanocobala Yes 1{tbl} Place 1 U nivers min 2-28 tablet ity of (VITAMIN 11:38: [place] B[place]12[place] 2,500 15 tongue Medica l mcg Subl daily. Branch Cyanocobala Yes 1{tbl} Place 1 U nivers min 2-28 tablet ity of (VITAMIN 11:38: [place] B[place]12[place] 2,500 15 tongue Medica l mcg Subl daily. Branch Cyanocobala Yes 1{tbl} Place 1 U nivers min 2-28 tablet ity of (VITAMIN 11:38: [place] B[place]12[place] 2,500 15 tongue Medica l mcg Subl daily. Branch Cyanocobala Yes 1{tbl} Place 1 U nivers min 2-28 tablet ity of (VITAMIN 11:38: [place] B[place]12[place] 2,500 15 tongue Medica l mcg Subl daily. Branch Cyanocobala Yes 1{tbl} Place 1 U nivers min 2-28 tablet ity of (VITAMIN 11:38: [place] B[place]12[place] 2,500 15 tongue Medica l mcg Subl daily. Branch Cyanocobala Yes 1{tbl} Place 1 U nivers min 2-28 tablet ity of (V[place]AMIN 11:38: [place] B[place]12[place] 2,500 15 tongue Medica l mcg Subl daily. Branch Cyanocobala Yes 1{tbl} Place 1 U nivers min 2-28 tablet ity of ([place]AMIN 11:38: [place] B[place]12[place] 2,500 15 tongue Medica l mcg Subl daily. Branch Cyanocobala Yes 1{tbl} Place 1 U nivers min 2-28 tablet ity of ([place]AMIN 11:38: [place] B[place]12[place] 2,500 15 tongue Medica l mcg Subl daily. Branch Cyanocobala Yes 1{tbl} Place 1 U nivers min 2-28 tablet ity of (VITAMIN 11:38: [place] B[place]12[place] 2,500 15 tongue Medica l mcg Subl daily. Branch Cyanocobala Yes 1{tbl} Place 1 U nivers min 2-28 tablet ity of ([place]AMIN 11:38: [place] B[place]12[place] 2,500 15 tongue Medica l mcg Subl daily. Branch Cyanocobala Yes 1{tbl} Place 1 U nivers min 2-28 tablet ity of (V[place]AMIN 11:38: [place] B[place]12[place] 2,500 15 tongue Medica l mcg Subl daily. Branch Cyanocobala Yes 1{tbl} Place 1 U nivers min 2-28 tablet ity of (VITAMIN 11:38: [place] B[place]12[place] 2,500 15 tongue Medica l mcg Subl daily. Branch Cyanocobala Yes 1{tbl} Place 1 U nivers min 2-28 tablet ity of (VITAMIN 11:38: [place] B[place]12[place] 2,500 15 tongue Medica l mcg Subl daily. Branch Cyanocobala Yes 1{tbl} Place 1 U nivers min 2-28 tablet ity of (VITAMIN 11:38: [place] B[place] 2,500 15 tongue Medica l mcg Subl daily. Branch Cyanocobala Yes 1{tbl} Place 1 U nivers min 2-28 tablet ity of (VITAMIN 11:38: [place] B[place] 2,500 15 tongue Medica l mcg Subl daily. Branch Cyanocobala Yes 1{tbl} Place 1 U nivers min 2-28 tablet ity of ([place]AMIN 11:38: [place] 2,500 15 tongue Medica l mcg Subl daily. Branch Cyanocobala Yes 1{tbl} Place 1 U nivers min 2-28 tablet ity of ([place]AMIN 11:[place]: [place] B-[place] 2,500 15 tongue Medica l mcg Subl daily. Branch Cyanocobala Yes 1{tbl} Place 1 U nivers min 2-28 tablet ity of ([place] 11:[place] B-[place] 2,500 15 tongue Medica l mcg Subl daily. Branch Cyanocobala Yes 1{tbl} Place 1 U nivers min 2-28 tablet ity of ([place] 11:[place] B-12[place] 2,500 15 tongue Medica l mcg Subl daily. Branch Cyanocobala Yes 1{tbl} Place 1 U nivers min 2-28 tablet ity of ([place] 11:[place] B-12[place] 2,500 15 tongue Medica l mcg Subl daily. Branch Cyanocobala Yes 1{tbl} Place 1 U nivers min 2-28 tablet ity of (VITAMIN 11:38: under the [place] 2,500 15 tongue Med[facility] l mcg Subl daily. Branch Cyanocobala Yes 1{tbl} Place 1 U nivers min 2-28 tablet ity of (V[place]AMIN 11:38: [place] B-[place] 2,500 15 tongue Medica [facility] mcg Subl daily. [facility] Cyan[place]obala Yes 1{tbl} Place 1 U nivers min 2-28 tablet ity of (V[place]IN 11:38: [place] 2,500 15 tongue Medica [facility] mcg Subl daily. [facility] Cyan[place]obala Yes 1{tbl} Place 1 U nivers min 2-28 tablet [place]y of (V[place] 11:38: [place] B[place] 2,500 15 tongue Medica [facility] mcg Subl daily. Branch Cyan[place]obala Yes 1{tbl} Place 1 U nivers min 2-28 tablet ity of (V[place]AMIN 11:38: [place] B[place] 2,500 15 tongue Medica l mcg Subl daily. [facility] Cyanocobala Yes 1{tbl} Place 1 U nivers min 2-28 tablet ity of (VITAMIN 11:38: [place] B-12[place] 2,500 15 tongue Medica l mcg Subl daily. Branch Cyanocobala Yes 1{tbl} Place 1 U nivers min 2-28 tablet ity of (V[place]AMIN 11:38: [place] B-[place] 2,500 15 tongue Medica l mcg Subl daily. Branch Cyanocobala Yes 1{tbl} Place 1 U nivers min 2-28 tablet ity of (VITAMIN 11:38: [place] B-12[place] 2,500 15 tongue Medica l mcg Subl daily. Branch Cyanocobala Yes 1{tbl} Place 1 U nivers min 2-28 tablet ity of (VITAMIN 11:38: [place] B-12[place] 2,500 15 tongue Medica l mcg Subl daily. Branch Cyanocobala Yes 1{tbl} Place 1 U nivers min 2-28 tablet ity of (VITAMIN 11:38: [place] B-12[place] 2,500 15 tongue Medica l mcg Subl daily. Branch Cyanocobala Yes 1{tbl} Place 1 U nivers min 2-28 tablet ity of (VITAMIN 11:38: [place] B-12[place] 2,500 15 tongue Medica l mcg Subl daily. Branch Cyanocobala Yes 1{tbl} Place 1 U nivers min 2-28 tablet ity of (VITAMIN 11:38: [place] B-12[place] 2,500 15 tongue Medica l mcg Subl daily. Branch Cyanocobala Yes 1{tbl} Place 1 U nivers min 2-28 tablet ity of (VITAMIN 11:38: [place] B-12[place] 2,500 15 tongue Medica l mcg Subl daily. Branch Cyanocobala Yes 1{tbl} Place 1 U nivers min 2-28 tablet ity of (VITAMIN 11:38: [place] B-12[place] 2,500 15 tongue Medica l mcg Subl daily. Branch Cyanocobala Yes 1{tbl} Place 1 U nivers min 2-28 tablet ity of (VITAMIN 11:38: [place] B-12[place] 2,500 15 tongue Medica l mcg Subl daily. Branch Cyanocobala Yes 1{tbl} Place 1 U nivers min 2-28 tablet ity of (VITAMIN 11:38: [place] B-12[place] 2,500 15 tongue Medica l mcg Subl daily. Branch Cyanocobala Yes 1{tbl} Place 1 U nivers min 2-28 tablet ity of (VITAMIN 11:38: [place] B-12[place] 2,500 15 tongue Medica l mcg Subl daily. Branch Cyanocobala Yes 1{tbl} Place 1 U nivers min 2-28 tablet ity of (VITAMIN 11:38: [place] B-12[place] 2,500 15 tongue Medica l mcg Subl daily. Branch Cyanocobala Yes 1{tbl} Place 1 U nivers min 2-28 tablet ity of (VITAMIN 11:38: [place] B-12[place] 2,500 15 tongue Medica l mcg Subl daily. Branch Cyanocobala Yes 1{tbl} Place 1 U nivers min 2-28 tablet ity of (VITAMIN 11:38: [place] B-12[place] 2,500 15 tongue Medica l mcg Subl daily. Branch Cyanocobala Yes 1{tbl} Place 1 U nivers min 2-28 tablet ity of (VITAMIN 11:38: [place] B-12[place] 2,500 15 tongue Medica l mcg Subl daily. Branch Cyanocobala Yes 1{tbl} Place 1 U nivers min 2-28 tablet ity of (VITAMIN 11:38: [place] B-12[place] 2,500 15 tongue Medica l mcg Subl daily. Branch Cyanocobala Yes 1{tbl} Place 1 U nivers min 2-28 tablet ity of (VITAMIN 11:38: [place] B-12[place] 2,500 15 tongue Medica l mcg Subl daily. Branch Cyanocobala Yes 1{tbl} Place 1 U nivers min 2-28 tablet ity of (VITAMIN 11:38: [place] B-12[place] 2,500 15 tongue Medica l mcg Subl daily. Branch Cyanocobala Yes 1{tbl} Place 1 U nivers min 2-28 tablet ity of (VITAMIN 11:38: [place] B-12[place] 2,500 15 tongue Medica l mcg Subl daily. Branch Cyanocobala Yes 1{tbl} Place 1 U nivers min 2-28 tablet ity of (VITAMIN 11:38: [place] B-12[place] 2,500 15 tongue Medica l mcg Subl daily. Branch Cyanocobala Yes 1{tbl} Place 1 U nivers min 2-28 tablet ity of (VITAMIN 11:38: [place] B-12[place] 2,500 15 tongue Medica l mcg Subl daily. Branch Cyanocobala Yes 1{tbl} Place 1 U nivers min 2-28 tablet ity of (VITAMIN 11:38: [place] B-12[place] 2,500 15 tongue Medica l mcg Subl daily. Branch Cyanocobala Yes 1{tbl} Place 1 U nivers min 2-28 tablet ity of (VITAMIN 11:38: [place] B-12[place] 2,500 15 tongue Medica l mcg Subl daily. Branch Cyanocobala Yes 1{tbl} Place 1 U nivers min 2-28 tablet ity of (VITAMIN 11:38: [place] B-12[place] 2,500 15 tongue Medica l mcg Subl daily. Branch Cyanocobala Yes 1{tbl} Place 1 U nivers min 2-28 tablet ity of (VITAMIN 11:38: [place] B-12[place] 2,500 15 tongue Medica l mcg Subl daily. Branch Cyanocobala Yes 1{tbl} Place 1 U nivers min 2-28 tablet ity of (VITAMIN 11:38: [place] B-12[place] 2,500 15 tongue Medica l mcg Subl daily. Branch Cyanocobala Yes 1{tbl} Place 1 U nivers min 2-28 tablet ity of (VITAMIN 11:38: [place] B-12[place] 2,500 15 tongue Medica l mcg Subl daily. Branch Cyanocobala Yes 1{tbl} Place 1 U nivers min 2-28 tablet ity of (VITAMIN 11:38: [place] B-12[place] 2,500 15 tongue Medica l mcg Subl daily. Branch insulin Yes [id number] ADMINISTER [facility] 2-28 8 TO 12 ity of U-100 100 00:00: UNITS [place] unit/mL (3 00 UNDER THE Medi keily mL) SKIN FIVE Branch injection TIMES DAILY insulin Yes [id number] ADMINISTER [facility] aspart 2-28 8 TO 12 ity of U-100 100 00:00: UNITS [place] unit/mL (3 00 UNDER THE Medi keily mL) SKIN FIVE Branch injection TIMES DAILY insulin 2021- No [id number] ADMINISTER [facility] aspart 2-28 08-11 8 TO 12 ity of U-100 100 00:00: 00:00 UNITS [place] unit/mL (3 00 :00 UNDER THE Medi keily mL) SKIN FIVE Branch injection TIMES DAILY multivit 2021-0 Yes 1{tbl} Take 1 Unive rs with 2-23 tablet by ity of min-folic 13:50: mouth [place] acid 00 daily. Medical ([facility] ADULT 50 FRESH-FRUIT Y) 120 mcg Chew multivit 2021-0 Yes 1{tbl} Take 1 Unive rs with 2-23 tablet by ity of min-folic 13:50: mouth [place] acid 00 daily. Medical ([facility] ADULT 50 FRESH-FRUIT Y) 120 mcg Chew multivit 2021-0 Yes 1{tbl} Take 1 Unive rs with 2-23 tablet by ity of min-folic 13:50: mouth [place] acid 00 daily. Medical ([facility] ADULT 50 FRESH-FRUIT Y) 120 mcg Chew multivit 2021-0 Yes 1{tbl} Take 1 Unive rs with 2-23 tablet by ity of min-folic 13:50: mouth [place] acid 00 daily. Medical ([facility] ADULT 50 FRESH-FRUIT Y) 120 mcg Chew multivit 2021-0 Yes 1{tbl} Take 1 Unive rs with 2-23 tablet by ity of min-folic 13:50: mouth [place] acid 00 daily. Medical ([facility] ADULT 50 FRESH-FRUIT Y) 120 mcg Chew multivit 2021-0 Yes 1{tbl} Take 1 Unive rs with 2-23 tablet by ity of min-folic 13:50: mouth [place] acid 00 daily. Medical ([facility] ADULT 50 FRESH-FRUIT Y) 120 mcg Chew multivit 2021-0 Yes 1{tbl} Take 1 Unive rs with 2-23 tablet by ity of min-folic 13:50: mouth [place] acid 00 daily. Medical ([facility] ADULT 50 FRESH-FRUIT Y) 120 mcg Chew multivit 2021-0 Yes 1{tbl} Take 1 Unive rs with 2-23 tablet by ity of min-folic 13:50: mouth [place] acid 00 daily. Medical ([facility] ADULT 50 FRESH-FRUIT Y) 120 mcg Chew multivit 2021-0 Yes 1{tbl} Take 1 Unive rs with 2-23 tablet by ity of min-folic 13:50: mouth [place] acid 00 daily. Medical ([facility] ADULT 50 FRESH-FRUIT Y) 120 mcg Chew multivit 2021-0 Yes 1{tbl} Take 1 Unive rs with 2-23 tablet by ity of min-folic 13:50: mouth [place] acid 00 daily. Medical ([facility] ADULT 50 FRESH-FRUIT Y) 120 mcg Chew multivit 2022-0 Yes 1{tbl} Take 1 Unive rs with 2-23 tablet by ity of min-folic 13:50: mouth [place] acid 00 daily. Medical ([facility] ADULT 50 FRESH-FRUIT Y) 120 mcg Chew multivit 2-0 Yes 1{tbl} Take 1 Unive rs with 2-23 tablet by ity of min-folic 13:50: mouth [place] acid 00 daily. Medical ([facility] ADULT 50 FRESH-FRUIT Y) 120 mcg Chew multivit 2022-0 Yes 1{tbl} Take 1 Unive rs with 2-23 tablet by ity of min-folic 13:50: mouth [place] acid 00 daily. Medical ([facility] ADULT 50 FRESH-FRUIT Y) 120 mcg Chew multivit 2-0 Yes 1{tbl} Take 1 Unive rs with 2-23 tablet by ity of min-folic 13:50: mouth [place] acid 00 daily. Medical ([facility] ADULT 50 FRESH-FRUIT Y) 120 mcg Chew multivit 2-0 Yes 1{tbl} Take 1 Unive rs with 2-23 tablet by ity of min-folic 13:50: mouth [place] acid 00 daily. Medical ([facility] ADULT 50 FRESH-FRUIT Y) 120 mcg Chew multivit 2-0 Yes 1{tbl} Take 1 Unive rs with 2-23 tablet by ity of min-folic 13:50: mouth [place] acid 00 daily. Medical ([facility] ADULT 50 FRESH-FRUIT Y) 120 mcg Chew multivit 2022-0 Yes 1{tbl} Take 1 Unive rs with 2-23 tablet by ity of min-folic 13:50: mouth [place] acid 00 daily. Medical ([facility] ADULT 50 FRESH-FRUIT Y) 120 mcg Chew multivit 2022-0 Yes 1{tbl} Take 1 Unive rs with 2-23 tablet by ity of min-folic 13:50: mouth [place] acid 00 daily. Medical ([facility] ADULT 50 FRESH-FRUIT Y) 120 mcg Chew multivit 2022-0 Yes 1{tbl} Take 1 Unive rs with 2-23 tablet by ity of min-folic 13:50: mouth [place] acid 00 daily. Medical ([facility] ADULT 50 FRESH-FRUIT Y) 120 mcg Chew multivit 2022-0 Yes 1{tbl} Take 1 Unive rs with 2-23 tablet by ity of min-folic 13:50: mouth [place] acid 00 daily. Medical ([facility] ADULT 50 FRESH-FRUIT Y) 120 mcg Chew multivit 2022-0 Yes 1{tbl} Take 1 Unive rs with 2-23 tablet by ity of min-folic 13:50: mouth [place] acid 00 daily. Medical ([facility] ADULT 50 FRESH-FRUIT Y) 120 mcg Chew multivit 2022-0 Yes 1{tbl} Take 1 Unive rs with 2-23 tablet by ity of min-folic 13:50: mouth [place] acid 00 daily. Medical ([facility] ADULT 50 FRESH-FRUIT Y) 120 mcg Chew multivit 2022-0 Yes 1{tbl} Take 1 Unive rs with 2-23 tablet by ity of min-folic 13:50: mouth [place] acid 00 daily. Medical ([facility] ADULT 50 FRESH-FRUIT Y) 120 mcg Chew multivit 2022-0 Yes 1{tbl} Take 1 Unive rs with 2-23 tablet by ity of min-folic 13:50: mouth [place] acid 00 daily. Medical ([facility] ADULT 50 FRESH-FRUIT Y) 120 mcg Chew multivit 2022-0 Yes 1{tbl} Take 1 Unive rs with 2-23 tablet by ity of min-folic 13:50: mouth [place] acid 00 daily. Medical ([facility] ADULT 50 FRESH-FRUIT Y) 120 mcg Chew multivit 2022-0 Yes 1{tbl} Take 1 Unive rs with 2-23 tablet by ity of min-folic 13:50: mouth [place] acid 00 daily. Medical ([facility] ADULT 50 FRESH-FRUIT Y) 120 mcg Chew multivit 2022-0 Yes 1{tbl} Take 1 Unive rs with 2-23 tablet by ity of min-folic 13:50: mouth [place] acid 00 daily. Medical ([facility] ADULT 50 FRESH-FRUIT Y) 120 mcg Chew multivit 2022-0 Yes 1{tbl} Take 1 Unive rs with 2-23 tablet by ity of min-folic 13:50: mouth [place] acid 00 daily. Medical ([facility] ADULT 50 FRESH-FRUIT Y) 120 mcg Chew multivit 2022-0 Yes 1{tbl} Take 1 Unive rs with 2-23 tablet by ity of min-folic 13:50: mouth [place] acid 00 daily. Medical ([facility] ADULT 50 FRESH-FRUIT Y) 120 mcg Chew multivit 2-0 Yes 1{tbl} Take 1 Unive rs with 2-23 tablet by ity of min-folic 13:50: mouth [place] acid 00 daily. Medical ([facility] ADULT 50 FRESH-FRUIT Y) 120 mcg Chew multivit 2022-0 Yes 1{tbl} Take 1 Unive rs with 2-23 tablet by ity of min-folic 13:50: mouth [place] acid 00 daily. Medical ([facility] ADULT 50 FRESH-FRUIT Y) 120 mcg Chew multivit 2022-0 Yes 1{tbl} Take 1 Unive rs with 2-23 tablet by ity of min-folic 13:50: mouth [place] acid 00 daily. Medical ([facility] ADULT 50 FRESH-FRUIT Y) 120 mcg Chew multivit 2-0 Yes 1{tbl} Take 1 Unive rs with 2-23 tablet by ity of min-folic 13:50: mouth [place] acid 00 daily. Medical ([facility] ADULT 50 FRESH-FRUIT Y) 120 mcg Chew multivit 2-0 Yes 1{tbl} Take 1 Unive rs with 2-23 tablet by ity of min-folic 13:50: mouth [place] acid 00 daily. Medical ([facility] ADULT 50 FRESH-FRUIT Y) 120 mcg Chew multivit 2022-0 Yes 1{tbl} Take 1 Unive rs with 2-23 tablet by ity of min-folic 13:50: mouth [place] acid 00 daily. Medical ([facility] ADULT 50 FRESH-FRUIT Y) 120 mcg Chew multivit 2022-0 Yes 1{tbl} Take 1 Unive rs with 2-23 tablet by ity of min-folic 13:50: mouth [place] acid 00 daily. Medical ([facility] ADULT 50 FRESH-FRUIT Y) 120 mcg Chew multivit 2022-0 Yes 1{tbl} Take 1 Unive rs with 2-23 tablet by ity of min-folic 13:50: mouth [place] acid 00 daily. Medical ([facility] ADULT 50 FRESH-FRUIT Y) 120 mcg Chew multivit 2022-0 Yes 1{tbl} Take 1 Unive rs with 2-23 tablet by ity of min-folic 13:50: mouth [place] acid 00 daily. Medical ([facility] ADULT 50 FRESH-FRUIT Y) 120 mcg Chew multivit 2021-0 Yes 1{tbl} Take 1 Unive rs with 2-23 tablet by ity of min-folic 13:50: mouth [place] acid 00 daily. Medical ([facility] ADULT 50 FRESH-FRUIT Y) 120 mcg Chew multivit 2021-0 Yes 1{tbl} Take 1 Unive rs with 2-23 tablet by ity of min-folic 13:50: mouth [place] acid 00 daily. Medical ([facility] ADULT 50 FRESH-FRUIT Y) 120 mcg Chew multivit 2021-0 Yes 1{tbl} Take 1 Unive rs with 2-23 tablet by ity of min-folic 13:50: mouth [place] acid 00 daily. Medical ([facility] ADULT 50 FRESH-FRUIT Y) 120 mcg Chew multivit 2021-0 Yes 1{tbl} Take 1 Unive rs with 2-23 tablet by ity of min-folic 13:50: mouth [place] acid 00 daily. Medical ([facility] ADULT 50 FRESH-FRUIT Y) 120 mcg Chew multivit 2021-0 Yes 1{tbl} Take 1 Unive rs with 2-23 tablet by ity of min-folic 13:50: mouth [place] acid 00 daily. Medical ([facility] ADULT 50 FRESH-FRUIT Y) 120 mcg Chew multivit 2021-0 Yes 1{tbl} Take 1 Unive rs with 2-23 tablet by ity of min-folic 13:50: mouth [place] acid 00 daily. Medical ([facility] ADULT 50 FRESH-FRUIT Y) 120 mcg Chew multivit 2-0 Yes 1{tbl} Take 1 Unive rs with 2-23 tablet by ity of min-folic 13:50: mouth [place] acid 00 daily. Medical ([facility] ADULT 50 FRESH-FRUIT Y) 120 mcg Chew multivit 2-0 Yes 1{tbl} Take 1 Unive rs with 2-23 tablet by ity of min-folic 13:50: mouth [place] acid 00 daily. Medical ([facility] ADULT 50 FRESH-FRUIT Y) 120 mcg Chew multivit 2022-0 Yes 1{tbl} Take 1 Unive rs with 2-23 tablet by ity of min-folic 13:50: mouth [place] acid 00 daily. Medical ([facility] ADULT 50 FRESH-FRUIT Y) 120 mcg Chew multivit 2022-0 Yes 1{tbl} Take 1 Unive rs with 2-23 tablet by ity of min-folic 13:50: mouth [place] acid 00 daily. Medical ([facility] ADULT 50 FRESH-FRUIT Y) 120 mcg Chew multivit 2022-0 Yes 1{tbl} Take 1 Unive rs with 2-23 tablet by ity of min-folic 13:50: mouth [place] acid 00 daily. Medical ([facility] ADULT 50 FRESH-FRUIT Y) 120 mcg Chew multivit 2022-0 Yes 1{tbl} Take 1 Unive rs with 2-23 tablet by ity of min-folic 13:50: mouth [place] acid 00 daily. Medical ([facility] ADULT 50 FRESH-FRUIT Y) 120 mcg Chew multivit 2022-0 Yes 1{tbl} Take 1 Unive rs with 2-23 tablet by ity of min-folic 13:50: mouth [place] acid 00 daily. Medical ([facility] ADULT 50 FRESH-FRUIT Y) 120 mcg Chew multivit 2022-0 Yes 1{tbl} Take 1 Unive rs with 2-23 tablet by ity of min-folic 13:50: mouth [place] acid 00 daily. Medical ([facility] ADULT 50 FRESH-FRUIT Y) 120 mcg Chew multivit 2022-0 Yes 1{tbl} Take 1 Unive rs with 2-23 tablet by ity of min-folic 13:50: mouth [place] acid 00 daily. Medical ([facility] ADULT 50 FRESH-FRUIT Y) 120 mcg Chew multivit 2022-0 Yes 1{tbl} Take 1 Unive rs with 2-23 tablet by ity of min-folic 13:50: mouth [place] acid 00 daily. Medical ([facility] ADULT 50 FRESH-FRUIT Y) 120 mcg Chew multivit 2022-0 Yes 1{tbl} Take 1 Unive rs with 2-23 tablet by ity of min-folic 13:50: mouth [place] acid 00 daily. Medical ([facility] ADULT 50 FRESH-FRUIT Y) 120 mcg Chew multivit 2022-0 Yes 1{tbl} Take 1 Unive rs with 2-23 tablet by ity of min-folic 13:50: mouth [place] acid 00 daily. Medical ([facility] ADULT 50 FRESH-FRUIT Y) 120 mcg Chew multivit 2022-0 Yes 1{tbl} Take 1 Unive rs with 2-23 tablet by ity of min-folic 13:50: mouth [place] acid 00 daily. Medical ([facility] ADULT 50 FRESH-FRUIT Y) 120 mcg Chew multivit 2022-0 Yes 1{tbl} Take 1 Unive rs with 2-23 tablet by ity of min-folic 13:50: mouth [place] acid 00 daily. Medical ([facility] ADULT 50 FRESH-FRUIT Y) 120 mcg Chew multivit 2022-0 Yes 1{tbl} Take 1 Unive rs with 2-23 tablet by ity of min-folic 13:50: mouth [place] acid 00 daily. Medical ([facility] ADULT 50 FRESH-FRUIT Y) 120 mcg Chew multivit 2022-0 Yes 1{tbl} Take 1 Unive rs with 2-23 tablet by ity of min-folic 13:50: mouth [place] acid 00 daily. Medical ([facility] ADULT 50 FRESH-FRUIT Y) 120 mcg Chew multivit 2022-0 Yes 1{tbl} Take 1 Unive rs with 2-23 tablet by ity of min-folic 13:50: mouth [place] acid 00 daily. Medical ([facility] ADULT 50 FRESH-FRUIT Y) 120 mcg Chew multivit 2022-0 Yes 1{tbl} Take 1 Unive rs with 2-23 tablet by ity of min-folic 13:50: mouth [place] acid 00 daily. Medical ([facility] ADULT 50 FRESH-FRUIT Y) 120 mcg Chew multivit 2022-0 Yes 1{tbl} Take 1 Unive rs with 2-23 tablet by ity of min-folic 13:50: mouth [place] acid 00 daily. Medical ([facility] ADULT 50 FRESH-FRUIT Y) 120 mcg Chew multivit 2022-0 Yes 1{tbl} Take 1 Unive rs with 2-23 tablet by ity of min-folic 13:50: mouth [place] acid 00 daily. Medical ([facility] ADULT 50 FRESH-FRUIT Y) 120 mcg Chew multivit 2022-0 Yes 1{tbl} Take 1 Unive rs with 2-23 tablet by ity of min-folic 13:50: mouth [place] acid 00 daily. Medical ([facility] ADULT 50 FRESH-FRUIT Y) 120 mcg Chew multivit 2021-0 Yes 1{tbl} Take 1 Unive rs with 2-23 tablet by ity of min-folic 13:50: mouth [place] acid 00 daily. Medical ([facility] ADULT 50 FRESH-FRUIT Y) 120 mcg Chew multivit 2021-0 Yes 1{tbl} Take 1 Unive rs with 2-23 tablet by ity of min-folic 13:50: mouth [place] acid 00 daily. Medical ([facility] ADULT 50 FRESH-FRUIT Y) 120 mcg Chew multivit 2021-0 Yes 1{tbl} Take 1 Unive rs with 2-23 tablet by ity of min-folic 13:50: mouth [place] acid 00 daily. Medical ([facility] ADULT 50 FRESH-FRUIT Y) 120 mcg Chew multivit 2021-0 Yes 1{tbl} Take 1 Unive rs with 2-23 tablet by ity of min-folic 13:50: mouth [place] acid 00 daily. Medical ([facility] ADULT 50 FRESH-FRUIT Y) 120 mcg Chew multivit 2021-0 Yes 1{tbl} Take 1 Unive rs with 2-23 tablet by ity of min-folic 13:50: mouth [place] acid 00 daily. Medical ([facility] ADULT 50 FRESH-FRUIT Y) 120 mcg Chew multivit 2021-0 Yes 1{tbl} Take 1 Unive rs with 2-23 tablet by ity of min-folic 13:50: mouth [place] acid 00 daily. Medical ([facility] ADULT 50 FRESH-FRUIT Y) 120 mcg Chew multivit 2021-0 Yes 1{tbl} Take 1 Unive rs with 2-23 tablet by ity of min-folic 13:50: mouth [place] acid 00 daily. Medical ([facility] ADULT 50 FRESH-FRUIT Y) 120 mcg Chew multivit 2021-0 Yes 1{tbl} Take 1 Unive rs with 2-23 tablet by ity of min-folic 13:50: mouth [place] acid 00 daily. Medical ([facility] ADULT 50 FRESH-FRUIT Y) 120 mcg Chew multivit 2021-0 Yes 1{tbl} Take 1 Unive rs with 2-23 tablet by ity of min-folic 13:50: mouth [place] acid 00 daily. Medical ([facility] ADULT 50 FRESH-FRUIT Y) 120 mcg Chew multivit 2022-0 Yes 1{tbl} Take 1 Unive rs with 2-23 tablet by ity of min-folic 13:50: mouth [place] acid 00 daily. Medical ([facility] ADULT 50 FRESH-FRUIT Y) 120 mcg Chew multivit 2021-0 Yes 1{tbl} Take 1 Unive rs with 2-23 tablet by ity of min-folic 13:50: mouth [place] acid 00 daily. Medical ([facility] ADULT 50 FRESH-FRUIT Y) 120 mcg Chew multivit 2021-0 Yes 1{tbl} Take 1 Unive rs with 2-23 tablet by ity of min-folic 13:50: mouth [place] acid 00 daily. Medical ([facility] ADULT 50 FRESH-FRUIT Y) 120 mcg Chew multivit 2021-0 Yes 1{tbl} Take 1 Unive rs with 2-23 tablet by ity of min-folic 13:50: mouth [place] acid 00 daily. Medical ([facility] ADULT 50 FRESH-FRUIT Y) 120 mcg Chew multivit 2021-0 Yes 1{tbl} Take 1 Unive rs with 2-23 tablet by ity of min-folic 13:50: mouth [place] acid 00 daily. Medical ([facility] ADULT 50 FRESH-FRUIT Y) 120 mcg Chew multivit 2021-0 Yes 1{tbl} Take 1 Unive rs with 2-23 tablet by ity of min-folic 13:50: mouth [place] acid 00 daily. Medical ([facility] ADULT 50 FRESH-FRUIT Y) 120 mcg Chew multivit 2021-0 Yes 1{tbl} Take 1 Unive rs with 2-23 tablet by ity of min-folic 13:50: mouth [place] acid 00 daily. Medical ([facility] ADULT 50 FRESH-FRUIT Y) 120 mcg Chew multivit 2-0 Yes 1{tbl} Take 1 Unive rs with 2-23 tablet by ity of min-folic 13:50: mouth [place] acid 00 daily. Medical ([facility] ADULT 50 FRESH-FRUIT Y) 120 mcg Chew multivit 2-0 Yes 1{tbl} Take 1 Unive rs with 2-23 tablet by ity of min-folic 13:50: mouth [place] acid 00 daily. Medical ([facility] ADULT 50 FRESH-FRUIT Y) 120 mcg Chew multivit 2022-0 Yes 1{tbl} Take 1 Unive rs with 2-23 tablet by ity of min-folic 13:50: mouth [place] acid 00 daily. Medical ([facility] ADULT 50 FRESH-FRUIT Y) 120 mcg Chew multivit 2022-0 Yes 1{tbl} Take 1 Unive rs with 2-23 tablet by ity of min-folic 13:50: mouth [place] acid 00 daily. Medical ([facility] ADULT 50 FRESH-FRUIT Y) 120 mcg Chew multivit 2022-0 Yes 1{tbl} Take 1 Unive rs with 2-23 tablet by ity of min-folic 13:50: mouth [place] acid 00 daily. Medical ([facility] ADULT 50 FRESH-FRUIT Y) 120 mcg Chew multivit 2022-0 Yes 1{tbl} Take 1 Unive rs with 2-23 tablet by ity of min-folic 13:50: mouth [place] acid 00 daily. Medical ([facility] ADULT 50 FRESH-FRUIT Y) 120 mcg Chew multivit 2022-0 Yes 1{tbl} Take 1 Unive rs with 2-23 tablet by ity of min-folic 13:50: mouth [place] acid 00 daily. Medical ([facility] ADULT 50 FRESH-FRUIT Y) 120 mcg Chew multivit 2022-0 Yes 1{tbl} Take 1 Unive rs with 2-23 tablet by ity of min-folic 13:50: mouth [place] acid 00 daily. Medical ([facility] ADULT 50 FRESH-FRUIT Y) 120 mcg Chew multivit 2022-0 Yes 1{tbl} Take 1 Unive rs with 2-23 tablet by ity of min-folic 13:50: mouth [place] acid 00 daily. Medical ([facility] ADULT 50 FRESH-FRUIT Y) 120 mcg Chew multivit 2022-0 Yes 1{tbl} Take 1 Unive rs with 2-23 tablet by ity of min-folic 13:50: mouth [place] acid 00 daily. Medical ([facility] ADULT 50 FRESH-FRUIT Y) 120 mcg Chew multivit 2022-0 Yes 1{tbl} Take 1 Unive rs with 2-23 tablet by ity of min-folic 13:50: mouth [place] acid 00 daily. Medical ([facility] ADULT 50 FRESH-FRUIT Y) 120 mcg Chew multivit 2022-0 Yes 1{tbl} Take 1 Unive rs with 2-23 tablet by ity of min-folic 13:50: mouth [place] acid 00 daily. Medical ([facility] ADULT 50 FRESH-FR[employer] Y) 120 mcg Chew multivit 2022-0 Yes 1{tbl} Take 1 Unive rs with 2-23 tablet by ity of min-folic 13:50: mouth [place] acid 00 daily. Medical ([facility] ADULT 50 FRESH-FR[employer] Y) 120 mcg Chew multivit 2022-0 Yes 1{tbl} Take 1 Unive rs with 2-23 tablet by ity of min-folic 13:50: mouth [place] acid 00 daily. Medical ([facility] ADULT 50 FRESH-FRUIT Y) 120 mcg Chew multivit 2022-0 Yes 1{tbl} Take 1 Unive rs with 2-23 tablet by ity of min-folic 13:50: mouth [place] acid 00 daily. Medical ([facility] ADULT 50 FRESH-FR[employer] Y) 120 mcg Chew multivit 2022-0 Yes 1{tbl} Take 1 Unive rs with 2-23 tablet by ity of min-folic 13:50: mouth [place] acid 00 daily. Medical ([facility] ADULT 50 FRESH-FR[employer] Y) 120 mcg Chew multivit 2022-0 Yes 1{tbl} Take 1 Unive rs with 2-23 tablet by ity of min-folic 13:50: mouth [place] acid 00 daily. Medical ([facility] ADULT 50 FRESH-FR[employer] Y) 120 mcg Chew multivit 2022-0 Yes 1{tbl} Take 1 Unive rs with 2-23 tablet by ity of min-folic 13:50: mouth [place] acid 00 daily. Medical ([facility] ADULT 50 FRESH-FR[employer] Y) 120 mcg Chew multivit 2022-0 Yes 1{tbl} Take 1 Unive rs with 2-23 tablet by ity of min-folic 13:50: mouth [place] acid 00 daily. Medical ([facility] ADULT 50 FRESH-FRUIT Y) 120 mcg Chew multivit 2022-0 Yes 1{tbl} Take 1 Unive rs with 2-23 tablet by ity of min-folic 13:50: mouth [place] acid 00 daily. Medical ([facility] ADULT 52 FRESH-FRUIT Y) 120 mcg Chew multivit 2022-0 Yes 1{tbl} Take 1 Unive rs with 2-23 tablet by ity of min-folic 13:50: mouth [place] acid 00 daily. Medical ([facility] ADULT 52 FRESH-FRUIT Y) 120 mcg Chew multivit 2022-0 Yes 1{tbl} Take 1 Unive rs with 2-23 tablet by ity of min-folic 13:50: mouth [place] acid 00 daily. Medical ([facility] ADULT 52 FRESH-FRUIT Y) 120 mcg Chew multivit 2-0 Yes 1{tbl} Take 1 Unive rs with 2-23 tablet by ity of min-folic 13:50: mouth [place] acid 00 daily. Medical ([facility] ADULT 52 FRESH-FRUIT Y) 120 mcg Chew multivit 2022-0 Yes 1{tbl} Take 1 Unive rs with 2-23 tablet by ity of min-folic 13:50: mouth [place] acid 00 daily. Medical ([facility] ADULT 52 FRESH-FRUIT Y) 120 mcg Chew multivit 2022-0 Yes 1{tbl} Take 1 Unive rs with 2-23 tablet by ity of min-folic 13:50: mouth [place] acid 00 daily. Medical ([facility] ADULT 52 FRESH-FRUIT Y) 120 mcg Chew multivit 2-0 Yes 1{tbl} Take 1 Unive rs with 2-23 tablet by ity of min-folic 13:50: mouth [place] acid 00 daily. Medical ([facility] ADULT 52 FRESH-FRUIT Y) 120 mcg Chew multivit 2-0 Yes 1{tbl} Take 1 Unive rs with 2-23 tablet by ity of min-folic 13:50: mouth [place] acid 00 daily. Medical ([facility] ADULT 52 FRESH-FRUIT Y) 120 mcg Chew multivit 2022-0 Yes 1{tbl} Take 1 Unive rs with 2-23 tablet by ity of min-folic 13:50: mouth [place] acid 00 daily. Medical ([facility] ADULT 52 FRESH-FRUIT Y) 120 mcg Chew ascorbic 2022-0 Yes [id number] 500mg Take 1 U nivers acid, 2-18 tablet by ity of vitamin C, 00:00: [place] 00 (two) Medical times [place] daily. ascorbic 2022-0 Yes [id number] 500mg Take 1 U nivers acid, 2-18 tablet by ity of vitamin C, 00:00: [place] mg 00 (two) Medical times [place] daily. ascorbic 2022-0 Yes [id number] 500mg Take 1 U nivers acid, 2-18 tablet by ity of vitamin C, 00:00: mouth [place] mg 00 (two) Medical times [facility] daily. ascorbic 2021-0 Yes [id number] 500mg Take 1 U nivers acid, 2-18 tablet by ity of vitamin C, 00:00: mouth [place] mg 00 (two) Medical times [facility] daily. ascorbic 2021-0 Yes [id number] 500mg Take 1 U nivers acid, 2-18 tablet by ity of vitamin C, 00:00: mouth [place] mg 00 (two) Medical times [facility] daily. ascorbic 2021-0 Yes [id number] 500mg Take 1 U nivers acid, 2-18 tablet by ity of vitamin C, 00:00: mouth [place] mg 00 (two) Medical times [facility] daily. ascorbic 2021-0 Yes [id number] 500mg Take 1 U nivers acid, 2-18 tablet by ity of vitamin C, 00:00: mouth [place] mg 00 (two) Medical times [facility] daily. ascorbic 2021-0 Yes [id number] 500mg Take 1 U nivers acid, 2-18 tablet by ity of vitamin C, 00:00: mouth [place] mg 00 (two) Medical times [facility] daily. ascorbic 2021-0 Yes [id number] 500mg Take 1 U nivers acid, 2-18 tablet by ity of vitamin C, 00:00: mouth [place] mg 00 (two) Medical times [facility] daily. ascorbic 2021-0 Yes [id number] 500mg Take 1 U nivers acid, 2-18 tablet by ity of vitamin C, 00:00: mouth [place] mg 00 (two) Medical times [facility] daily. ascorbic 2021-0 Yes [id number] 500mg Take 1 U nivers acid, 2-18 tablet by ity of vitamin C, 00:00: mouth [place] 500 mg 00 (two) Medical times [facility] daily. ascorbic 2-0 Yes [id number] 500mg Take 1 U nivers acid, 2-18 tablet by ity of vitamin C, 00:00: mouth [place] mg 00 (two) Medical times [facility] daily. ascorbic 2-0 Yes [id number] 500mg Take 1 U nivers acid, 2-18 tablet by ity of vitamin C, 00:00: mouth [place] mg 00 (two) Medical times [facility] daily. ascorbic 2021-0 Yes [id number] 500mg Take 1 U nivers acid, 2-18 tablet by ity of vitamin C, 00:00: mouth [place] 500 mg 00 (two) Medical times [facility] daily. ascorbic 202-0 Yes [id number] 500mg Take 1 U nivers acid, 2-18 tablet by ity of vitamin C, 00:00: mouth 2 [place] mg 00 (two) Medical times [facility] daily. ascorbic 2021-0 Yes [id number] 500mg Take 1 U nivers acid, 2-18 tablet by ity of vitamin C, 00:00: mouth 2 [place] mg 00 (two) Medical times [facility] daily. ascorbic 2021-0 Yes [id number] 500mg Take 1 U nivers acid, 2-18 tablet by ity of vitamin C, 00:00: mouth 2 [place] mg 00 (two) Medical times [facility] daily. ascorbic 2021-0 Yes [id number] 500mg Take 1 U nivers acid, 2-18 tablet by ity of vitamin C, 00:00: mouth 2 [place] 500 mg 00 (two) Medical times [facility] daily. ascorbic 2021-0 Yes [id number] 500mg Take 1 U nivers acid, 2-18 tablet by ity of vitamin C, 00:00: mouth 2 [place] 500 mg 00 (two) Medical times [facility] daily. ascorbic 2021-0 Yes [id number] 500mg Take 1 U nivers acid, 2-18 tablet by ity of vitamin C, 00:00: mouth 2 [place] 500 mg 00 (two) Medical times [facility] daily. ascorbic 2021-0 Yes [id number] 500mg Take 1 U nivers acid, 2-18 tablet by ity of vitamin C, 00:00: mouth 2 [place] mg 00 (two) Medical times [facility] daily. ascorbic 202-0 Yes [id number] 500mg Take 1 U nivers acid, 2-18 tablet by ity of vitamin C, 00:00: mouth 2 [place] mg 00 (two) Medical times [facility] daily. ascorbic 2022-0 Yes [id number] 500mg Take 1 U nivers acid, 2-18 tablet by ity of vitamin C, 00:00: mouth 2 [place] mg 00 (two) Medical times [facility] daily. ascorbic 2022-0 Yes [id number] 500mg Take 1 U nivers acid, 2-18 tablet by ity of vitamin C, 00:00: mouth 2 [place] 500 mg 00 (two) Medical times [facility] daily. ascorbic 202-0 Yes [id number] 500mg Take 1 U nivers acid, 2-18 tablet by ity of vitamin C, 00:00: mouth 2 [place] 500 mg 00 (two) Medical times [facility] daily. ascorbic 2021-0 Yes [id number] 500mg Take 1 U nivers acid, 2-18 tablet by ity of vitamin C, 00:00: mouth 2 [place] mg 00 (two) Medical times [facility] daily. ascorbic 2021-0 Yes [id number] 500mg Take 1 U nivers acid, 2-18 tablet by ity of vitamin C, 00:00: mouth 2 [place] mg 00 (two) Medical times [facility] daily. ascorbic 2021-0 Yes [id number] 500mg Take 1 U nivers acid, 2-18 tablet by ity of vitamin C, 00:00: mouth 2 [place] mg 00 (two) Medical times [facility] daily. ascorbic 2021-0 Yes [id number] 500mg Take 1 U nivers acid, 2-18 tablet by ity of vitamin C, 00:00: mouth 2 [place] mg 00 (two) Medical times [facility] daily. ascorbic 2021-0 Yes [id number] 500mg Take 1 U nivers acid, 2-18 tablet by ity of vitamin C, 00:00: mouth 2 [place] mg 00 (two) Medical times [facility] daily. ascorbic 2021-0 Yes [id number] 500mg Take 1 U nivers acid, 2-18 tablet by ity of vitamin C, 00:00: mouth 2 [place] 500 mg 00 (two) Medical times [facility] daily. ascorbic 2022-0 Yes [id number] 500mg Take 1 U nivers acid, 2-18 tablet by ity of vitamin C, 00:00: mouth 2 [place] 500 mg 00 (two) Medical times [facility] daily. ascorbic 2022-0 Yes [id number] 500mg Take 1 U nivers acid, 2-18 tablet by ity of vitamin C, 00:00: mouth 2 [place] mg 00 (two) Medical times [facility] daily. ascorbic 2021-0 Yes [id number] 500mg Take 1 U nivers acid, 2-18 tablet by ity of vitamin C, 00:00: mouth 2 [place] 500 mg 00 (two) Medical times [facility] daily. ascorbic 2021-0 Yes [id number] 500mg Take 1 U nivers acid, 2-18 tablet by ity of vitamin C, 00:00: mouth 2 [place] 500 mg 00 (two) Medical times [facility] daily. ascorbic 2021-0 Yes [id number] 500mg Take 1 U nivers acid, 2-18 tablet by ity of vitamin C, 00:00: mouth 2 [place] 500 mg 00 (two) Medical times [facility] daily. ascorbic 2021-0 Yes [id number] 500mg Take 1 U nivers acid, 2-18 tablet by ity of vitamin C, 00:00: mouth 2 [place] 500 mg 00 (two) Medical times [facility] daily. ascorbic 2021-0 Yes [id number] 500mg Take 1 U nivers acid, 2-18 tablet by ity of vitamin C, 00:00: mouth 2 [place] mg 00 (two) Medical times [facility] daily. ascorbic 2021-0 Yes [id number] 500mg Take 1 U nivers acid, 2-18 tablet by ity of vitamin C, 00:00: mouth 2 [place] 500 mg 00 (two) Medical times [facility] daily. ascorbic 2021-0 Yes [id number] 500mg Take 1 U nivers acid, 2-18 tablet by ity of vitamin C, 00:00: mouth 2 [place] 500 mg 00 (two) Medical times [facility] daily. ascorbic 2021-0 Yes [id number] 500mg Take 1 U n[facility] acid, 2-18 tablet by ity of vitamin C, 00:00: mouth 2 [place] mg 00 (two) Medical times [facility] daily. ascorbic 2-0 Yes [id number] 500mg Take 1 U nivers acid, 2-18 tablet by ity of vitamin C, 00:00: mouth 2 [place] 500 mg 00 (two) Medical times [facility] daily. ascorbic 2021-0 Yes [id number] 500mg Take 1 U nivers acid, 2-18 tablet by ity of vitamin C, 00:00: mouth 2 [place] 500 mg 00 (two) Medical times [facility] daily. ascorbic 2021-0 Yes [id number] 500mg Take 1 U nivers acid, 2-18 tablet by ity of vitamin C, 00:00: mouth 2 [place] 500 mg 00 (two) Medical times [facility] daily. ascorbic 2021-0 Yes [id number] 500mg Take 1 U nivers acid, 2-18 tablet by ity of vitamin C, 00:00: mouth 2 [place] 500 mg 00 (two) Medical times [facility] daily. ascorbic 2021-0 Yes [id number] 500mg Take 1 U nivers acid, 2-18 tablet by ity of vitamin C, 00:00: mouth 2 [place] 500 mg 00 (two) Medical times [facility] daily. ascorbic 2021-0 Yes [id number] 500mg Take 1 U n[facility] acid, 2-18 tablet by ity of vitamin C, 00:00: mouth 2 [place] 500 mg 00 (two) Medical times [facility] daily. ascorbic 2021-0 Yes [id number] 500mg Take 1 U n[facility] acid, 2-18 tablet by ity of vitamin C, 00:00: mouth 2 [place] mg 00 (two) Medical times [facility] daily. ascorbic 2021-0 Yes [id number] 500mg Take 1 U nivers acid, 2-18 tablet by ity of vitamin C, 00:00: mouth 2 [place] mg 00 (two) Medical times [facility] daily. ascorbic 2021-0 Yes [id number] 500mg Take 1 U nivers acid, 2-18 tablet by ity of vitamin C, 00:00: mouth 2 [place] 500 mg 00 (two) Medical times [facility] daily. ascorbic 2021-0 Yes [id number] 500mg Take 1 U nivers acid, 2-18 tablet by ity of vitamin C, 00:00: mouth 2 [place] 500 mg 00 (two) Medical times [facility] daily. ascorbic 2021-0 Yes [id number] 500mg Take 1 U n[facility] acid, 2-18 tablet by ity of vitamin C, 00:00: mouth 2 [place] 500 mg 00 (two) Medical times [facility] daily. ascorbic 2021-0 Yes [id number] 500mg Take 1 U [facility] acid, 2-18 tablet by ity of vitamin C, 00:00: mouth 2 [place] 500 mg 00 (two) Medical times [facility] daily. ascorbic 2021-0 Yes [id number] 500mg Take 1 U n[facility] acid, 2-18 tablet by ity of vitamin C, 00:00: mouth 2 [place] 500 mg 00 (two) Medical times [facility] daily. ascorbic 2021-0 Yes [id number] 500mg Take 1 U n[facility] acid, 2-18 tablet by ity of vitamin C, 00:00: mouth 2 [place] 500 mg 00 (two) Medical times [facility] daily. ascorbic 2021-0 Yes [id number] 500mg Take 1 U n[facility] acid, 2-18 tablet by ity of vitamin C, 00:00: mouth 2 [place] 500 mg 00 (two) Medical times [facility] daily. ascorbic 2021-0 Yes [id number] 500mg Take 1 U n[facility] acid, 2-18 tablet by ity of vitamin C, 00:00: mouth 2 [place] 500 mg 00 (two) Medical times [facility] daily. ascorbic 2021-0 Yes [id number] 500mg Take 1 U n[facility] acid, 2-18 tablet by ity of vitamin C, 00:00: mouth 2 [place] 500 mg 00 (two) Medical times [facility] daily. ascorbic 2021-0 Yes [id number] 500mg Take 1 U nivers acid, 2-18 tablet by ity of vitamin C, 00:00: mouth 2 [place] 500 mg 00 (two) Medical times [facility] daily. ascorbic 2021-0 Yes [id number] 500mg Take 1 U nivers acid, 2-18 tablet by ity of vitamin C, 00:00: mouth 2 [place] 500 mg 00 (two) Medical times [facility] daily. ascorbic 2021-0 Yes [id number] 500mg Take 1 U n[facility] acid, 2-18 tablet by ity of vitamin C, 00:00: mouth 2 [place] 500 mg 00 (two) Medical times [facility] daily. ascorbic 2021-0 Yes [id number] 500mg Take 1 U n[facility] acid, 2-18 tablet by ity of vitamin C, 00:00: mouth 2 [place] 500 mg 00 (two) Medical times [facility] daily. ascorbic 2021-0 Yes [id number] 500mg Take 1 U n[facility] acid, 2-18 tablet by ity of vitamin C, 00:00: mouth 2 [place] 500 mg 00 (two) Medical times [facility] daily. ascorbic 2021-0 Yes [id number] 500mg Take 1 U n[facility] acid, 2-18 tablet by ity of vitamin C, 00:00: mouth 2 [place] 500 mg 00 (two) Medical times [facility] daily. ascorbic 2021-0 Yes [id number] 500mg Take 1 U n[facility] acid, 2-18 tablet by ity of vitamin C, 00:00: mouth 2 [place] 500 mg 00 (two) Medical times [facility] daily. ascorbic 202-0 Yes [id number] 500mg Take 1 [facility] acid, 2-18 tablet by ity of vitamin C, 00:00: mouth 2 [place] 500 mg 00 (two) Medical times [facility] daily. ascorbic 2021-0 Yes [id number] 500mg Take 1 [facility] acid, 2-18 tablet by ity of vitamin C, 00:00: mouth 2 [place] 500 mg 00 (two) Medical times [facility] daily. ascorbic 2021-0 Yes [id number] 500mg Take 1 [facility] acid, 2-18 tablet by ity of vitamin C, 00:00: mouth 2 [place] 500 mg 00 (two) Medical times [facility] daily. ascorbic 2021-0 Yes [id number] 500mg Take 1 [facility] acid, 2-18 tablet by ity of vitamin C, 00:00: mouth 2 [place] 500 mg 00 (two) Medical times [facility] daily. ascorbic 2021-0 Yes [id number] 500mg Take 1 [facility] n[facility] acid, 2-18 tablet by ity of vitamin C, 00:00: mouth 2 [place] 500 mg 00 (two) Medical times [facility] daily. ascorbic 2021-0 Yes [id number] 500mg Take 1 U n[facility] acid, 2-18 tablet by ity of vitamin C, 00:00: mouth 2 [place] 500 mg 00 (two) Medical times [facility] daily. ascorbic 2021-0 Yes [id number] 500mg Take 1 [facility] acid, 2-18 tablet by ity of vitamin C, 00:00: mouth 2 [place] 500 mg 00 (two) Medical times [facility] daily. ascorbic 2022-0 Yes [id number] 500mg Take 1 [facility] acid, 2-18 tablet by ity of vitamin C, 00:00: mouth 2 [place] 500 mg 00 (two) Medical times [facility] daily. ascorbic 2022-0 Yes [id number] 500mg Take 1 [facility] acid, 2-18 tablet by ity of vitamin C, 00:00: mouth 2 [place] 500 mg 00 (two) Medical times [facility] daily. ascorbic 2022-0 Yes [id number] 500mg Take 1 U n[facility] acid, 2-18 tablet by ity of vitamin C, 00:00: mouth 2 [place] 500 mg 00 (two) Medical times [facility] daily. ascorbic 202-0 Yes [id number] 500mg Take 1 U n[facility] acid, 2-18 tablet by ity of vitamin C, 00:00: mouth 2 [place] 500 mg 00 (two) Medical times [facility] daily. ascorbic 2021-0 Yes [id number] 500mg Take 1 U n[facility] acid, 2-18 tablet by ity of vitamin C, 00:00: mouth 2 [place] 500 mg 00 (two) Medical times [facility] daily. ascorbic 2021-0 Yes [id number] 500mg Take 1 [facility] acid, 2-18 tablet by ity of vitamin C, 00:00: mouth 2 [place] 500 mg 00 (two) Medical times [facility] daily. ascorbic 2021-0 Yes [id number] 500mg Take 1 [facility] acid, 2-18 tablet by ity of vitamin C, 00:00: mouth 2 [place] 500 mg 00 (two) Medical times [facility] daily. ascorbic 2021-0 Yes [id number] 500mg Take 1 [facility] acid, 2-18 tablet by ity of vitamin C, 00:00: mouth 2 [place] 500 mg 00 (two) Medical times [facility] daily. ascorbic 2021-0 Yes [id number] 500mg Take 1 [facility] acid, 2-18 tablet by ity of vitamin C, 00:00: mouth 2 [place] 500 mg 00 (two) Medical times [facility] daily. ascorbic 2021-0 Yes [id number] 500mg Take 1 [facility] acid, 2-18 tablet by ity of vitamin C, 00:00: mouth 2 [place] 500 mg 00 (two) Medical times [facility] daily. ascorbic 2022-0 Yes [id number] 500mg Take 1 [facility] acid, 2-18 tablet by ity of vitamin C, 00:00: mouth 2 [place] 500 mg 00 (two) Medical times [facility] daily. ascorbic 2022-0 Yes [id number] 500mg Take 1 [facility] acid, 2-18 tablet by ity of vitamin C, 00:00: mouth 2 [place] 500 mg 00 (two) Medical times [facility] daily. ascorbic 2021-0 Yes [id number] 500mg Take 1 [facility] acid, 2-18 tablet by ity of vitamin C, 00:00: mouth 2 [place] mg 00 (two) Medical times [facility] daily. ascorbic 2021-0 Yes [id number] 500mg Take 1 [facility] acid, 2-18 tablet by ity of vitamin C, 00:00: mouth 2 [place] 500 mg 00 (two) Medical times [facility] daily. ascorbic 2021-0 Yes [id number] 500mg Take 1 [facility] acid, 2-18 tablet by ity of vitamin C, 00:00: mouth 2 [place] 500 mg 00 (two) Medical times [facility] daily. ascorbic 2021-0 Yes [id number] 500mg Take 1 [facility] acid, 2-18 tablet by ity of vitamin C, 00:00: mouth 2 [place] 500 mg 00 (two) Medical times [facility] daily. ascorbic 2021-0 Yes [id number] 500mg Take 1 U [facility] acid, 2-18 tablet by ity of vitamin C, 00:00: mouth 2 [place] 500 mg 00 (two) Medical times [facility] daily. ascorbic 2021-0 Yes [id number] 500mg Take 1 [facility] acid, 2-18 tablet by ity of vitamin C, 00:00: mouth 2 [place] 500 mg 00 (two) Medical times [facility] daily. ascorbic 2021-0 Yes [id number] 500mg Take 1 U [facility] acid, 2-18 tablet by ity of vitamin C, 00:00: mouth [place] 500 mg 00 (two) Medical times [facility] daily. ascorbic 2021-0 Yes [id number] 500mg Take 1 [facility] acid, 2-18 tablet by ity of vitamin C, 00:00: mouth [place] mg 00 (two) Medical times [facility] daily. ascorbic 2021-0 Yes [id number] 500mg Take 1 [facility] acid, 2-18 tablet by ity of vitamin C, 00:00: mouth [place] 500 mg 00 (two) Medical times [facility] daily. ascorbic 2021-0 Yes [id number] 500mg Take 1 [facility] acid, 2-18 tablet by ity of vitamin C, 00:00: mouth [place] mg 00 (two) Medical times [facility] daily. ascorbic 2021-0 Yes [id number] 500mg Take 1 [facility] acid, 2-18 tablet by ity of vitamin C, 00:00: mouth [place] mg 00 (two) Medical times [facility] daily. ascorbic 2021-0 Yes [id number] 500mg Take 1 [facility] acid, 2-18 tablet by ity of vitamin C, 00:00: mouth [place] mg 00 (two) Medical times [facility] daily. ascorbic 2021-0 Yes [id number] 500mg Take 1 [facility] acid, 2-18 tablet by ity of vitamin C, 00:00: mouth [place] mg 00 (two) Medical times [facility] daily. ascorbic 2021-0 Yes [id number] 500mg Take 1 [facility] acid, 2-18 tablet by ity of vitamin C, 00:00: mouth [place] mg 00 (two) Medical times [facility] daily. ascorbic 2021-0 Yes [id number] 500mg Take 1 [facility] acid, 2-18 tablet by ity of vitamin C, 00:00: mouth [place] mg 00 (two) Medical times [facility] daily. ascorbic 2021-0 Yes [id number] 500mg Take 1 [facility] acid, 2-18 tablet by ity of vitamin C, 00:00: mouth [place] mg 00 (two) Medical times [facility] daily. ascorbic 2021-0 Yes [id number] 500mg Take 1 [facility] acid, 2-18 tablet by ity of vitamin C, 00:00: mouth [place] mg 00 (two) Medical times [facility] daily. ascorbic 2021-0 Yes [id number] 500mg Take 1 [facility] acid, 2-18 tablet by ity of vitamin C, 00:00: mouth [place] mg 00 (two) Medical times [facility] daily. ascorbic 2021-0 Yes [id number] 500mg Take 1 [facility] acid, 2-18 tablet by ity of vitamin C, 00:00: mouth [place] mg 00 (two) Medical times [facility] daily. ascorbic 2021-0 Yes [id number] 500mg Take 1 [facility] acid, 2-18 tablet by ity of vitamin C, 00:00: mouth [place] mg 00 (two) Medical times [facility] daily. ascorbic 2021-0 Yes [id number] 500mg Take 1 [facility] acid, 2-18 tablet by ity of vitamin C, 00:00: mouth [place] mg 00 (two) Medical times [facility] daily. ascorbic 2022-0 Yes [id number] 500mg Take 1 [facility] acid, 2-18 tablet by ity of vitamin C, 00:00: mouth [place] mg 00 (two) Medical times [facility] daily. ascorbic 2022-0 Yes [id number] 500mg Take 1 [facility] acid, 2-18 tablet by ity of vitamin C, 00:00: mouth [place] mg 00 (two) Medical times [facility] daily. ascorbic 2022-0 Yes [id number] 500mg Take 1 [facility] acid, 2-18 tablet by ity of vitamin C, 00:00: mouth [place] mg 00 (two) Medical times [facility] daily. ascorbic 2022-0 Yes [id number] 500mg Take 1 [facility] acid, 2-18 tablet by ity of vitamin C, 00:00: mouth [place] mg 00 (two) Medical times [facility] daily. ascorbic 2022-0 Yes [id number] 500mg Take 1 [facility] acid, 2-18 tablet by ity of vitamin C, 00:00: mouth [place] mg 00 (two) Medical times [facility] daily. ascorbic 2022-0 Yes [id number] 500mg Take 1 [facility] acid, 2-18 tablet by ity of vitamin C, 00:00: mouth [place] mg 00 (two) Medical times [facility] daily. blood sugar 2022-0 Yes [id number] Use 4 [facility] nivers diagnostic 1-26 Times ity of (ONETOUCH 00:00: daily. [facility]x [facility] as VERIO TEST 00 E11.65 Medical STRIPS) Branch strip blood sugar 2022-0 Yes [id number] Use 4 U nivers diagnostic 1-26 Times ity of (ONETOUCH 00:00: daily. [facility]x [facility] VERIO TEST 00 E11.65 Medical STRIPS) Branch strip blood sugar 2022-0 Yes [id number] Use 4 U nivers diagnostic 1-26 Times ity of (ONETOUCH 00:00: daily. [facility]x [facility] VERIO TEST 00 E11.65 Medical STRIPS) Branch strip blood sugar 2022-0 Yes [id number] Use 4 [facility] nivers diagnostic 1-26 Times ity of (ONETOUCH 00:00: daily. [facility]x [facility] VERIO TEST 00 E11.65 Medical STRIPS) Branch strip blood sugar 2022-0 Yes [id number] Use 4 U nivers diagnostic 1-26 Times ity of (ONETOUCH 00:00: daily. [facility]x [facility] VERIO TEST 00 E11.65 Medical STRIPS) Branch strip blood sugar 2022-0 Yes [id number] Use 4 [facility] nivers diagnostic 1-26 Times ity of (ONETOUCH 00:00: daily. [facility] VERIO TEST 00 E11.65 Medical STRIPS) Branch strip blood sugar 2022-0 Yes [id number] Use 4 [facility] nivers diagnostic 1-26 Times ity of (ONETOUCH 00:00: daily. [facility]x [facility] as VERIO TEST 00 E11.65 Medical STRIPS) Branch strip blood sugar 2022-0 Yes [id number] Use 4 U nivers diagnostic 1-26 Times ity of (ONETOUCH 00:00: daily. [facility]x [facility] as VERIO TEST 00 E11.65 Medical STRIPS) Branch strip blood sugar 2022-0 Yes [id number] Use 4 U nivers diagnostic 1-26 Times ity of (ONETOUCH 00:00: daily. [facility]x [facility] as VERIO TEST 00 E11.65 Medical STRIPS) Branch strip blood sugar 2022-0 Yes [id number] Use 4 U nivers diagnostic 1-26 Times ity of (ONETOUCH 00:00: daily. [facility]x [facility] as VERIO TEST 00 E11.65 Medical STRIPS) Branch strip blood sugar 2022-0 Yes [id number] Use 4 U nivers diagnostic 1-26 Times ity of (ONETOUCH 00:00: daily. [facility]x [facility] as VERIO TEST 00 E11.65 Medical STRIPS) Branch strip blood sugar 2022-0 Yes [id number] Use 4 U nivers diagnostic 1-26 Times ity of (ONETOUCH 00:00: daily. [facility]x [facility] as VERIO TEST 00 E11.65 Medical STRIPS) Branch strip blood sugar 2022-0 Yes [id number] Use 4 U nivers diagnostic 1-26 Times ity of (ONETOUCH 00:00: daily. [facility]x [facility] as VERIO TEST 00 E11.65 Medical STRIPS) Branch strip blood sugar 2022-0 Yes [id number] Use 4 U nivers diagnostic 1-26 Times ity of (ONETOUCH 00:00: daily. [facility]x [facility] as VERIO TEST 00 E11.65 Medical STRIPS) Branch strip blood sugar 2022-0 Yes [id number] Use 4 U nivers diagnostic 1-26 Times ity of (ONETOUCH 00:00: daily. [facility]x [facility] as VERIO TEST 00 E11.65 Medical STRIPS) Branch strip blood sugar 2022-0 Yes [id number] Use 4 U nivers diagnostic 1-26 Times ity of (ONETOUCH 00:00: daily. [facility]x [facility] as VERIO TEST E11.65 Medical STRIPS) Branch strip blood sugar 2022-0 Yes [id number] Use 4 U nivers diagnostic 1-26 Times ity of (ONETOUCH 00:00: daily. [facility]x [facility] as VERIO TEST 00 E11.65 Medical STRIPS) Branch strip blood sugar 2022-0 Yes [id number] Use 4 U nivers diagnostic 1-26 Times ity of (ONETOUCH 00:00: daily. [facility]x [facility] as VERIO TEST 00 E11.65 Medical STRIPS) Branch strip blood sugar 2022-0 Yes [id number] Use 4 U nivers diagnostic 1-26 Times ity of (ONETOUCH 00:00: daily. [facility]x [facility] as VERIO TEST 00 E11.65 Medical STRIPS) Branch strip blood sugar 2022-0 Yes [id number] Use 4 U nivers diagnostic 1-26 Times ity of (ONETOUCH 00:00: daily. [facility]x [facility] as VERIO TEST 00 E11.65 Medical STRIPS) Branch strip blood sugar 2022-0 Yes [id number] Use 4 U nivers diagnostic 1-26 Times ity of (ONETOUCH 00:00: daily. [facility]x [facility] as VERIO TEST 00 E11.65 Medical STRIPS) Branch strip blood sugar 2022-0 Yes [id number] Use 4 U nivers diagnostic 1-26 Times ity of (ONETOUCH 00:00: daily. Dx [facility] as VERIO TEST 00 E11.65 Medical STRIPS) Branch strip blood sugar 2022-0 Yes [id number] Use 4 U nivers diagnostic 1-26 Times ity of (ONETOUCH 00:00: daily. Dx [facility] as VERIO TEST 00 E11.65 Medical STRIPS) Branch strip blood sugar 2022-0 Yes [id number] Use 4 U nivers diagnostic 1-26 Times ity of (ONETOUCH 00:00: daily. Dx [facility] as VERIO TEST 00 E11.65 Medical STRIPS) Branch strip blood sugar 2022-0 Yes [id number] Use 4 U nivers diagnostic 1-26 Times ity of (ONETOUCH 00:00: daily. Dx [facility] as VERIO TEST 00 E11.65 Medical STRIPS) Branch strip blood sugar 2022-0 Yes [id number] Use 4 U nivers diagnostic 1-26 Times ity of (ONETOUCH 00:00: daily. Dx [facility] as VERIO TEST 00 E11.65 Medical STRIPS) Branch strip blood sugar 2022-0 Yes [id number] Use 4 U nivers diagnostic 1-26 Times ity of (ONETOUCH 00:00: daily. Dx [facility] as VERIO TEST 00 E11.65 Medical STRIPS) Branch strip blood sugar 2022-0 Yes [id number] Use 4 U nivers diagnostic 1-26 Times ity of (ONETOUCH 00:00: daily. Dx [facility] as VERIO TEST 00 E11.65 Medical STRIPS) Branch strip blood sugar 2022-0 Yes [id number] Use 4 U nivers diagnostic 1-26 Times ity of (ONETOUCH 00:00: daily. Dx [facility] as VERIO TEST 00 E11.65 Medical STRIPS) Branch strip blood sugar 2022-0 Yes [id number] Use 4 U nivers diagnostic 1-26 Times ity of (ONETOUCH 00:00: daily. Dx [facility] as VERIO TEST 00 E11.65 Medical STRIPS) Branch strip blood sugar 2022-0 Yes [id number] Use 4 U nivers diagnostic 1-26 Times ity of (ONETOUCH 00:00: daily. Dx [facility] as VERIO TEST 00 E11.65 Medical STRIPS) Branch strip blood sugar 2022-0 Yes [id number] Use 4 [facility] diagnostic 1-26 Times ity of (ONETOUCH 00:00: daily. Dx [facility] as VERIO TEST 00 E11.65 Medical STRIPS) Branch strip blood sugar 2022-0 Yes [id number] Use 4 [facility]ivers diagnostic 1-26 Times ity of (ONETOUCH 00:00: daily. Dx [facility] as VERIO TEST 00 E11.65 Medical STRIPS) Branch strip blood sugar 2022-0 Yes [id number] Use 4 [facility] nivers diagnostic 1-26 Times ity of (ONETOUCH 00:00: daily. Dx [facility] as VERIO TEST 00 E11.65 Medical STRIPS) Branch strip blood sugar 2022-0 Yes [id number] Use 4 [facility] nivers diagnostic 1-26 Times ity of (ONETOUCH 00:00: daily. Dx [facility] as VERIO TEST 00 E11.65 Medical STRIPS) Branch strip blood sugar 2022-0 Yes [id number] Use 4 [facility]ivers diagnostic 1-26 Times ity of (ONETOUCH 00:00: daily. Dx [facility] as VERIO TEST 00 E11.65 Medical STRIPS) Branch strip blood sugar 2022-0 Yes [id number] Use 4 [facility] nivers diagnostic 1-26 Times ity of (ONETOUCH 00:00: daily. Dx [facility] as VERIO TEST E11.65 Medical STRIPS) Branch strip blood sugar 2022-0 Yes [id number] Use 4 U nivers diagnostic 1-26 Times ity of (ONETOUCH 00:00: daily. Dx [facility] as VERIO TEST 00 E11.65 Medical STRIPS) Branch strip blood sugar 2022-0 Yes [id number] Use 4 U nivers diagnostic 1-26 Times ity of (ONETOUCH 00:00: daily. Dx [facility] as VERIO TEST 00 E11.65 Medical STRIPS) Branch strip blood sugar 2022-0 Yes [id number] Use 4 U nivers diagnostic 1-26 Times ity of (ONETOUCH 00:00: daily. Dx [facility] as VERIO TEST 00 E11.65 Medical STRIPS) Branch strip blood sugar 2022-0 Yes [id number] Use 4 U nivers diagnostic 1-26 Times ity of (ONETOUCH 00:00: daily. Dx [facility] as VERIO TEST 00 E11.65 Medical STRIPS) Branch strip blood sugar 2022-0 Yes [id number] Use 4 U nivers diagnostic 1-26 Times ity of (ONETOUCH 00:00: daily. Dx [facility] as VERIO TEST 00 E11.65 Medical STRIPS) Branch strip blood sugar 2022-0 Yes [id number] Use 4 U nivers diagnostic 1-26 Times ity of (ONETOUCH 00:00: daily. Dx [facility] as VERIO TEST 00 E11.65 Medical STRIPS) Branch strip blood sugar 2022-0 Yes [id number] Use 4 U nivers diagnostic 1-26 Times ity of (ONETOUCH 00:00: daily. Dx [facility] as VERIO TEST 00 E11.65 Medical STRIPS) Branch strip blood sugar 2022-0 Yes [id number] Use 4 U nivers diagnostic 1-26 Times ity of (ONETOUCH 00:00: daily. Dx [facility] as VERIO TEST 00 E11.65 Medical STRIPS) Branch strip blood sugar 2022-0 Yes [id number] Use 4 U nivers diagnostic 1-26 Times ity of (ONETOUCH 00:00: daily. Dx [facility] as VERIO TEST 00 E11.65 Medical STRIPS) Branch strip blood sugar 2022-0 Yes [id number] Use 4 U nivers diagnostic 1-26 Times ity of (ONETOUCH 00:00: daily. Dx [facility] as VERIO TEST 00 E11.65 Medical STRIPS) Branch strip blood sugar 2022-0 Yes [id number] Use 4 U nivers diagnostic 1-26 Times ity of (ONETOUCH 00:00: daily. Dx [facility] as VERIO TEST 00 E11.65 Medical STRIPS) Branch strip blood sugar 2022-0 Yes [id number] Use 4 U nivers diagnostic 1-26 Times ity of (ONETOUCH 00:00: daily. Dx [facility] as VERIO TEST 00 E11.65 Medical STRIPS) Branch strip blood sugar 2022-0 Yes [id number] Use 4 U nivers diagnostic 1-26 Times ity of (ONETOUCH 00:00: daily. Dx [facility] as VERIO TEST 00 E11.65 Medical STRIPS) Branch strip blood sugar 2022-0 Yes [id number] Use 4 U nivers diagnostic 1-26 Times ity of (ONETOUCH 00:00: daily. Dx [facility] as VERIO TEST 00 E11.65 Medical STRIPS) Branch strip blood sugar 2022-0 Yes [id number] Use 4 U nivers diagnostic 1-26 Times ity of (ONETOUCH 00:00: daily. Dx [facility] as VERIO TEST 00 E11.65 Medical STRIPS) Branch strip blood sugar 2022-0 Yes [id number] Use 4 U nivers diagnostic 1-26 Times ity of (ONETOUCH 00:00: daily. Dx [facility] as VERIO TEST 00 E11.65 Medical STRIPS) Branch strip blood sugar 2022-0 Yes [id number] Use 4 U nivers diagnostic 1-26 Times ity of (ONETOUCH 00:00: daily. Dx [facility] as VERIO TEST 00 E11.65 Medical STRIPS) Branch strip blood sugar 2022-0 Yes [id number] Use 4 U nivers diagnostic 1-26 Times ity of (ONETOUCH 00:00: daily. Dx [facility] as VERIO TEST 00 E11.65 Medical STRIPS) Branch strip blood sugar 2022-0 Yes [id number] Use 4 U nivers diagnostic 1-26 Times ity of (ONETOUCH 00:00: daily. Dx [facility] as VERIO TEST 00 E11.65 Medical STRIPS) Branch strip blood sugar 2022-0 Yes [id number] Use 4 U nivers diagnostic 1-26 Times ity of (ONETOUCH 00:00: daily. Dx [facility] as VERIO TEST 00 E11.65 Medical STRIPS) Branch strip blood sugar 2022-0 Yes [id number] Use 4 U nivers diagnostic 1-26 Times ity of (ONETOUCH 00:00: daily. Dx [facility] as VERIO TEST 00 E11.65 Medical STRIPS) Branch strip blood sugar 2022-0 Yes [id number] Use 4 U nivers diagnostic 1-26 Times ity of (ONETOUCH 00:00: daily. Dx [facility] as VERIO TEST 00 E11.65 Medical STRIPS) Branch strip blood sugar 2022-0 Yes [id number] Use 4 U nivers diagnostic 1-26 Times ity of (ONETOUCH 00:00: daily. Dx [facility] as VERIO TEST 00 E11.65 Medical STRIPS) Branch strip blood sugar 2022-0 Yes [id number] Use 4 U nivers diagnostic 1-26 Times ity of (ONETOUCH 00:00: daily. Dx [facility] as VERIO TEST 00 E11.65 Medical STRIPS) Branch strip blood sugar 2022-0 Yes [id number] Use 4 U nivers diagnostic 1-26 Times ity of (ONETOUCH 00:00: daily. Dx [facility] as VERIO TEST 00 E11.65 Medical STRIPS) Branch strip blood sugar 2022-0 Yes [id number] Use 4 U nivers diagnostic 1-26 Times ity of (ONETOUCH 00:00: daily. Dx [facility] as VERIO TEST 00 E11.65 Medical STRIPS) Branch strip blood sugar 2022-0 Yes [id number] Use 4 U nivers diagnostic 1-26 Times ity of (ONETOUCH 00:00: daily. Dx [facility] as VERIO TEST 00 E11.65 Medical STRIPS) Branch strip blood sugar 2022-0 Yes [id number] Use 4 [facility] nivers diagnostic 1-26 Times ity of (ONETOUCH 00:00: daily. Dx [facility] as VERIO TEST 00 E11.65 Medical STRIPS) Branch strip blood sugar 2022-0 Yes [id number] Use 4 U nivers diagnostic 1-26 Times ity of (ONETOUCH 00:00: daily. Dx [facility] as VERIO TEST 00 E11.65 Medical STRIPS) Branch strip blood sugar 2022-0 Yes [id number] Use 4 U nivers diagnostic 1-26 Times ity of (ONETOUCH 00:00: daily. Dx [facility] as VERIO TEST 00 E11.65 Medical STRIPS) Branch strip blood sugar 2022-0 Yes [id number] Use 4 [facility] nivers diagnostic 1-26 Times ity of (ONETOUCH 00:00: daily. Dx [facility] as VERIO TEST 00 E11.65 Medical STRIPS) Branch strip blood sugar 2022-0 Yes [id number] Use 4 [facility]ivers diagnostic 1-26 Times ity of (ONETOUCH 00:00: daily. Dx [facility] as VERIO TEST 00 E11.65 Medical STRIPS) Branch strip blood sugar 2022-0 Yes [id number] Use 4 U nivers diagnostic 1-26 Times ity of (ONETOUCH 00:00: daily. Dx [facility] as VERIO TEST 00 E11.65 Medical STRIPS) Branch strip blood sugar 2022-0 Yes [id number] Use 4 [facility] nivers diagnostic 1-26 Times ity of (ONETOUCH 00:00: daily. Dx [facility] VERIO TEST 00 E11.65 Medical STRIPS) Branch strip blood sugar 2022-0 Yes [id number] Use 4 U nivers diagnostic 1-26 Times ity of (ONETOUCH 00:00: daily. Dx [facility] as VERIO TEST 00 E11.65 Medical STRIPS) Branch strip blood sugar 2022-0 Yes [id number] Use 4 U nivers diagnostic 1-26 Times ity of (ONETOUCH 00:00: daily. Dx [facility] as VERIO TEST 00 E11.65 Medical STRIPS) Branch strip blood sugar 2022-0 Yes [id number] Use 4 [facility]ivers diagnostic 1-26 Times ity of (ONETOUCH 00:00: daily. Dx [facility] as VERIO TEST 00 E11.65 Medical STRIPS) Branch strip blood sugar 2022-0 Yes [id number] Use 4 U nivers diagnostic 1-26 Times ity of (ONETOUCH 00:00: daily. Dx [facility] as VERIO TEST 00 E11.65 Medical STRIPS) Branch strip blood sugar 2022-0 Yes [id number] Use 4 U nivers diagnostic 1-26 Times ity of (ONETOUCH 00:00: daily. Dx [facility] as VERIO TEST 00 E11.65 Medical STRIPS) Branch strip blood sugar 2022-0 Yes [id number] Use 4 U nivers diagnostic 1-26 Times ity of (ONETOUCH 00:00: daily. Dx [facility] as VERIO TEST 00 E11.65 Medical STRIPS) Branch strip blood sugar 2022-0 Yes [id number] Use 4 U nivers diagnostic 1-26 Times ity of (ONETOUCH 00:00: daily. Dx [facility] as VERIO TEST 00 E11.65 Medical STRIPS) Branch strip blood sugar 2022-0 Yes [id number] Use 4 U nivers diagnostic 1-26 Times ity of (ONETOUCH 00:00: daily. Dx [facility] as VERIO TEST 00 E11.65 Medical STRIPS) Branch strip blood sugar 2022-0 Yes [id number] Use 4 U nivers diagnostic 1-26 Times ity of (ONETOUCH 00:00: daily. Dx [facility] as VERIO TEST 00 E11.65 Medical STRIPS) Branch strip blood sugar 2022-0 Yes [id number] Use 4 U nivers diagnostic 1-26 Times ity of (ONETOUCH 00:00: daily. Dx [facility] as VERIO TEST 00 E11.65 Medical STRIPS) Branch strip blood sugar 2022-0 Yes [id number] Use 4 U nivers diagnostic 1-26 Times ity of (ONETOUCH 00:00: daily. Dx [facility] as VERIO TEST 00 E11.65 Medical STRIPS) Branch strip blood sugar 2022-0 Yes [id number] Use 4 U nivers diagnostic 1-26 Times ity of (ONETOUCH 00:00: daily. Dx [facility] as VERIO TEST 00 E11.65 Medical STRIPS) Branch strip blood sugar 2022-0 Yes [id number] Use 4 U nivers diagnostic 1-26 Times ity of (ONETOUCH 00:00: daily. Dx [facility] as VERIO TEST 00 E11.65 Medical STRIPS) Branch strip blood sugar 2022-0 Yes [id number] Use 4 U nivers diagnostic 1-26 Times ity of (ONETOUCH 00:00: daily. Dx [facility] as VERIO TEST 00 E11.65 Medical STRIPS) Branch strip blood sugar 2022-0 Yes [id number] Use 4 U nivers diagnostic 1-26 Times ity of (ONETOUCH 00:00: daily. Dx [facility] as VERIO TEST 00 E11.65 Medical STRIPS) Branch strip blood sugar 2022-0 Yes [id number] Use 4 U nivers diagnostic 1-26 Times ity of (ONETOUCH 00:00: daily. Dx [facility] as VERIO TEST 00 E11.65 Medical STRIPS) Branch strip blood sugar 2022-0 Yes [id number] Use 4 U nivers diagnostic 1-26 Times ity of (ONETOUCH 00:00: daily. Dx [facility] as VERIO TEST 00 E11.65 Medical STRIPS) Branch strip blood sugar 2022-0 Yes [id number] Use 4 U nivers diagnostic 1-26 Times ity of (ONETOUCH 00:00: daily. Dx [facility] as VERIO TEST E11.65 Medical STRIPS) Branch strip blood sugar 2022-0 Yes [id number] Use 4 U nivers diagnostic 1-26 Times ity of (ONETOUCH 00:00: daily. Dx [facility] as VERIO TEST 00 E11.65 Medical STRIPS) Branch strip blood sugar 2022-0 Yes [id number] Use 4 U nivers diagnostic 1-26 Times ity of (ONETOUCH 00:00: daily. Dx [facility] as VERIO TEST 00 E11.65 Medical STRIPS) Branch strip blood sugar 2022-0 Yes [id number] Use 4 U nivers diagnostic 1-26 Times ity of (ONETOUCH 00:00: daily. Dx [facility] as VERIO TEST 00 E11.65 Medical STRIPS) Branch strip blood sugar 2022-0 Yes [id number] Use 4 U nivers diagnostic 1-26 Times ity of (ONETOUCH 00:00: daily. Dx [facility] as VERIO TEST 00 E11.65 Medical STRIPS) Branch strip blood sugar 2022-0 Yes [id number] Use 4 U nivers diagnostic 1-26 Times ity of (ONETOUCH 00:00: daily. Dx [facility] as VERIO TEST 00 E11.65 Medical STRIPS) Branch strip blood sugar 2022-0 Yes [id number] Use 4 U nivers diagnostic 1-26 Times ity of (ONETOUCH 00:00: daily. Dx [facility] as VERIO TEST 00 E11.65 Medical STRIPS) Branch strip blood sugar 2022-0 Yes [id number] Use 4 U nivers diagnostic 1-26 Times ity of (ONETOUCH 00:00: daily. Dx [facility] as VERIO TEST 00 E11.65 Medical STRIPS) Branch strip blood sugar 2022-0 Yes [id number] Use 4 U nivers diagnostic 1-26 Times ity of (ONETOUCH 00:00: daily. Dx [facility] as VERIO TEST 00 E11.65 Medical STRIPS) Branch strip blood sugar 2022-0 Yes [id number] Use 4 U nivers diagnostic 1-26 Times ity of (ONETOUCH 00:00: daily. Dx [facility] as VERIO TEST 00 E11.65 Medical STRIPS) Branch strip blood sugar 2022-0 Yes [id number] Use 4 U nivers diagnostic 1-26 Times ity of (ONETOUCH 00:00: daily. Dx [facility] as VERIO TEST 00 E11.65 Medical STRIPS) Branch strip blood sugar 2022-0 Yes [id number] Use 4 U nivers diagnostic 1-26 Times ity of (ONETOUCH 00:00: daily. Dx [facility] as VERIO TEST 00 E11.65 Medical STRIPS) Branch strip blood sugar 2022-0 Yes [id number] Use 4 U nivers diagnostic 1-26 Times ity of (ONETOUCH 00:00: daily. Dx [facility] as VERIO TEST 00 E11.65 Medical STRIPS) Branch strip blood sugar 2022-0 Yes [id number] Use 4 U nivers diagnostic 1-26 Times ity of (ONETOUCH 00:00: daily. Dx [facility] as VERIO TEST 00 E11.65 Medical STRIPS) Branch strip blood sugar 2022-0 Yes [id number] Use 4 U nivers diagnostic 1-26 Times ity of (ONETOUCH 00:00: daily. Dx [facility] as VERIO TEST 00 E11.65 Medical STRIPS) Branch strip blood sugar 2022-0 Yes [id number] Use 4 U nivers diagnostic 1-26 Times ity of (ONETOUCH 00:00: daily. Dx [facility] as VERIO TEST 00 E11.65 Medical STRIPS) Branch strip blood sugar 2022-0 Yes [id number] Use 4 U nivers diagnostic 1-26 Times ity of (ONETOUCH 00:00: daily. Dx [facility] as VERIO TEST 00 E11.65 Medical STRIPS) Branch strip blood sugar 2022-0 Yes [id number] Use 4 U nivers diagnostic 1-26 Times ity of (ONETOUCH 00:00: daily. Dx [facility] as VERIO TEST 00 E11.65 Medical STRIPS) Branch strip blood sugar 2022-0 Yes [id number] Use 4 U nivers diagnostic 1-26 Times ity of (ONETOUCH 00:00: daily. Dx [facility] as VERIO TEST 00 E11.65 Medical STRIPS) Branch strip blood sugar 2022-0 Yes [id number] Use 4 U nivers diagnostic 1-26 Times ity of (ONETOUCH 00:00: daily. Dx [facility] as VERIO TEST 00 E11.65 Medical STRIPS) Branch strip blood sugar 2021-0 Yes [id number] Use 4 U nivers diagnostic 1-26 Times ity of (ONETOUCH 00:00: daily. Dx [facility] as VERIO TEST E11.65 Medical STRIPS) Branch strip blood sugar 2021-0 Yes [id number] Use 4 U nivers diagnostic 1-26 Times ity of (ONETOUCH 00:00: daily. Dx [facility] as VERIO TEST E11.65 Medical STRIPS) Branch strip blood sugar 2021-0 Yes [id number] Use 4 U nivers diagnostic 1-26 Times ity of (ONETOUCH 00:00: daily. Dx [facility] as VERIO TEST E11.65 Medical STRIPS) Branch strip acetaminoph 2021- No 500mg Take 500 [facility] (TYLENOL 12-06-13 mg by ity of 8 HOUR 07:24: 00:00 mouth. 3 [place] ORAL) 43 :00 tabs, TID Medical Branch acetaminoph 2022- No [id number] 650mg Take 2 [facility] en 325 mg 12-06-14 tablets by ity of tablet 00:00: 05:59 mouth [place] 00 :00 every 6 Medical (six) Branch hours as needed for Pain (scale 4-6). acetaminoph 2022- No [id number] 650mg Take 2 [facility] 325 mg 12-0614 tablets by ity of tablet 00:00: 05:59 mouth [place] 00 :00 every 6 Medical (six) Branch hours as needed for Pain (scale 4-6). acetaminoph 2022- No [id number] 650mg Take 2 [facility] en 325 mg 12-06-14 tablets by ity of tablet 00:00: 05:59 mouth [place] 00 :00 every 6 Medical (six) Branch hours as needed for Pain (scale 4-6). acetaminoph 2022- No [id number] 650mg Take 2 [facility] en 325 mg 12-06-14 tablets by ity of tablet 00:00: 05:59 mouth [place] 00 :00 every 6 Medical (six) Branch hours as needed for Pain (scale 4-6). acetaminoph 2022- No [id number] 650mg Take 2 [facility] 325 mg 1-13 01-14 tablets by ity of tablet 00:00: 05:59 mouth [place] 00 :00 every 6 Medical (six) Branch hours as needed for Pain (scale 4-6). acetaminoph 2022- No [id number] 650mg Take 2 [facility] en 325 mg 12-06 tablets by ity of tablet 00:00: 05:59 mouth [place] 00 :00 every 6 Medical (six) Branch hours as needed for Pain (scale 4-6). acetaminoph 2022- No [id number] 650mg Take 2 [facility] en 325 mg 12-06 tablets by ity of tablet 00:00: 05:59 mouth [place] 00 :00 every 6 Medical (six) Branch hours as needed for Pain (scale 4-6). acetaminoph 2022- No [id number] 650mg Take 2 [facility] en 325 mg 12-06 tablets by ity of tablet 00:00: 05:59 mouth [place] 00 :00 every 6 Medical (six) Branch hours as needed for Pain (scale 4-6). acetaminoph 2022- No [id number] 650mg Take 2 [facility] en 325 mg 12-06 tablets by ity of tablet 00:00: 05:59 mouth [place] 00 :00 every 6 Medical (six) Branch hours as needed for Pain (scale 4-6). acetaminoph 2022- No [id number] 650mg Take 2 [facility] en 325 mg 12-06 tablets by ity of tablet 00:00: 05:59 mouth [place] 00 :00 every 6 Medical (six) Branch hours as needed for Pain (scale 4-6). acetaminoph 2022- No [id number] 650mg Take 2 [facility] en 325 mg 12-06-14 tablets by ity of tablet 00:00: 05:59 mouth [place] 00 :00 every 6 Medical (six) Branch hours as needed for Pain (scale 4-6). acetaminoph 2022- No [id number] 650mg Take 2 [facility] en 325 mg 12-0614 tablets by ity of tablet 00:00: 05:59 mouth [place] 00 :00 every 6 Medical (six) Branch hours as needed for Pain (scale 4-6). acetaminoph 2022- No [id number] 650mg Take 2 [facility] en 325 mg 1-06 12-14 tablets by ity of tablet 00:00: 05:59 mouth [place] 00 :00 every 6 Medical (six) Branch hours as needed for Pain (scale 4-6). acetaminoph 2022- No [id number] 650mg Take 2 [facility] en 325 mg 1-06 12-14 tablets by ity of tablet 00:00: 05:59 mouth [place] 00 :00 every 6 Medical (six) Branch hours as needed for Pain (scale 4-6). acetaminoph 2022- No [id number] 650mg Take 2 [facility] en 325 mg -06 12-14 tablets by ity of tablet 00:00: 05:59 mouth [place] 00 :00 every 6 Medical (six) Branch hours as needed for Pain (scale 4-6). acetaminoph 2022- No [id number] 650mg Take 2 [facility] en 325 mg 12-06-14 tablets by ity of tablet 00:00: 05:59 mouth [place] 00 :00 every 6 Medical (six) Branch hours as needed for Pain (scale 4-6). acetaminoph 2022- No [id number] 650mg Take 2 [facility] en 325 mg 12-06-14 tablets by ity of tablet 00:00: 05:59 mouth [place] 00 :00 every 6 Medical (six) Branch hours as needed for Pain (scale 4-6). acetaminoph 2022- No [id number] 650mg Take 2 [facility] en 325 mg 12-06-14 tablets by ity of tablet 00:00: 05:59 mouth [place] 00 :00 every 6 Medical (six) Branch hours as needed for Pain (scale 4-6). acetaminoph 2022- No [id number] 650mg Take 2 [facility] en 325 mg 12-06-14 tablets by ity of tablet 00:00: 05:59 mouth [place] 00 :00 every 6 Medical (six) Branch hours as needed for Pain (scale 4-6). acetaminoph 2022- No [id number] 650mg Take 2 [facility] en 325 mg 12-06-14 tablets by ity of tablet 00:00: 05:59 mouth [place] 00 :00 every 6 Medical (six) Branch hours as needed for Pain (scale 4-6). acetaminoph No [id number] 650mg Take 2 [facility] en 325 mg 12-06-14 tablets by ity of tablet 00:00: 05:59 mouth [place] 00 :00 every 6 Medical (six) Branch hours as needed for Pain (scale 4-6). acetaminoph No [id number] 650mg Take 2 [facility] en 325 mg 12-06-14 tablets by ity of tablet 00:00: 05:59 mouth [place] 00 :00 every 6 Medical (six) Branch hours as needed for Pain (scale 4-6). acetaminoph No [id number] 650mg Take 2 [facility] en 325 mg 12-06-14 tablets by ity of tablet 00:00: 05:59 mouth [place] 00 :00 every 6 Medical (six) Branch hours as needed for Pain (scale 4-6). acetaminoph No [id number] 650mg Take 2 [facility] en 325 mg 12-06-14 tablets by ity of tablet 00:00: 05:59 mouth [place] 00 :00 every 6 Medical (six) Branch hours as needed for Pain (scale 4-6). acetaminoph No [id number] 650mg Take 2 [facility] en 325 mg 12-06-14 tablets by ity of tablet 00:00: 05:59 mouth [place] 00 :00 every 6 Medical (six) Branch hours as needed for Pain (scale 4-6). acetaminoph 2022- No [id number] 650mg Take 2 [facility] en 325 mg 12-06-14 tablets by ity of tablet 00:00: 05:59 mouth [place] 00 :00 every 6 Medical (six) Branch hours as needed for Pain (scale 4-6). acetaminoph No [id number] 650mg Take 2 [facility] en 325 mg 12-06-14 tablets by ity of tablet 00:00: 05:59 mouth [place] 00 :00 every 6 Medical (six) Branch hours as needed for Pain (scale 4-6). acetaminoph 2022- No [id number] 650mg Take 2 [facility] en 325 mg 12-06-14 tablets by ity of tablet 00:00: 05:59 mouth [place] 00 :00 every 6 Medical (six) Branch hours as needed for Pain (scale 4-6). acetaminoph 2022- No [id number] 650mg Take 2 [facility] en 325 mg 12-06 tablets by ity of tablet 00:00: 05:59 mouth [place] 00 :00 every 6 Medical (six) Branch hours as needed for Pain (scale 4-6). acetaminoph 2022- No [id number] 650mg Take 2 [facility] en 325 mg 12-06 tablets by ity of tablet 00:00: 05:59 mouth [place] 00 :00 every 6 Medical (six) Branch hours as needed for Pain (scale 4-6). acetaminoph 2022- No [id number] 650mg Take 2 [facility] en 325 mg 12-06 tablets by ity of tablet 00:00: 05:59 mouth [place] 00 :00 every 6 Medical (six) Branch hours as needed for Pain (scale 4-6). acetaminoph 2022- No [id number] 650mg Take 2 [facility] en 325 mg 12-06 tablets by ity of tablet 00:00: 05:59 mouth [place] 00 :00 every 6 Medical (six) Branch hours as needed for Pain (scale 4-6). LOSARTAN 2020-11 Yes [id number] TAKE 1 [facility] vers 100 mg 1-30 TABLET BY ity of tablet 00:00: MOUTH [place] 00 DAILY Medical Branch LOSARTAN 2020-11 Yes [id number] TAKE 1 [facility] vers 100 mg 1-30 TABLET BY ity of tablet 00:00: MOUTH [place] 00 DAILY Medical Branch LOSARTAN 2020- Yes [id number] TAKE 1 [facility] vers 100 mg 1-30 TABLET BY ity of tablet 00:00: MOUTH [place] 00 DAILY Medical Branch LOSARTAN 2020-11 Yes [id number] TAKE 1 [facility] vers 100 mg 1-30 TABLET BY ity of tablet 00:00: MOUTH [place] 00 DAILY Medical Branch LOSARTAN 2020- Yes [id number] TAKE 1 [facility] vers 100 mg 1-30 TABLET BY ity of tablet 00:00: MOUTH [place] 00 DAILY Medical Branch LOSARTAN 2020-11 Yes [id number] TAKE 1 [facility] vers 100 mg 1-30 TABLET BY ity of tablet 00:00: MOUTH [place] 00 DAILY Medical Branch LOSARTAN 2020- No [id number] TAKE 1 Un yolanda 100 mg 1-30 -21 TABLET BY ity of tablet 00:00: 00:00 MOUTH [place] 00 :00 DAILY Medical Branch isosorbide Yes TAKE 1 Unive rs mononitrate 9-24 TABLET BY ity of (IMDUR) 30 00:00: MOUTH [place] mg 24 hr 00 DAILY FOR MD tablet [facility] BD Adela 2nd Yes USE [facility] ers Gen Pen - DIRECTED 4 ity of Needle 32 00:00: TO 5 TIMES [place] gauge x 00 A DAY " [facility] METOPROLOL Yes [id number] TAKE 1 U nivers SUCCINATE 9-23 TABLET BY ity o f XL 25 mg 24 00:00: MOUTH [place] hr tablet 00 TWICE Medical DAILY Branch METOPROLOL Yes [id number] TAKE 1 U nivers SUCCINATE 9-23 TABLET BY ity o f XL 25 mg 24 00:00: MOUTH [place] hr tablet 00 TWICE Medical DAILY Branch METOPROLOL Yes [id number] TAKE 1 U nivers SUCCINATE 9-23 TABLET BY ity o f XL 25 mg 24 00:00: MOUTH [place] hr tablet 00 TWICE Medical DAILY Branch METOPROLOL 0 Yes [id number] TAKE 1 U nivers SUCCINATE 9-23 TABLET BY ity o f XL 25 mg 24 00:00: MOUTH [place] hr tablet 00 TWICE Medical DAILY Branch METOPROLOL 0 Yes [id number] TAKE 1 U nivers SUCCINATE 9-23 TABLET BY ity o f XL 25 mg 24 00:00: MOUTH [place] hr tablet 00 TWICE Medical DAILY Branch METOPROLOL Yes [id number] TAKE 1 U nivers SUCCINATE 9-23 TABLET BY ity o f XL 25 mg 24 00:00: MOUTH [place] hr tablet 00 TWICE Medical DAILY Branch METOPROLOL 0 Yes [id number] TAKE 1 U nivers SUCCINATE 9-23 TABLET BY ity o f XL 25 mg 24 00:00: MOUTH [place] hr tablet 00 TWICE Medical DAILY Branch METOPROLOL 0 Yes [id number] TAKE 1 U nivers SUCCINATE 9-23 TABLET BY ity o f XL 25 mg 24 00:00: MOUTH [place] hr tablet 00 TWICE Medical DAILY Branch METOPROLOL Yes [id number] TAKE 1 U nivers SUCCINATE 9-23 TABLET BY ity o f XL 25 mg 24 00:00: MOUTH [place] hr tablet 00 TWICE Medical DAILY Branch METOPROLOL 0 Yes [id number] TAKE 1 U nivers SUCCINATE 9-23 TABLET BY ity o f XL 25 mg 24 00:00: MOUTH [place] hr tablet 00 TWICE Medical DAILY Branch METOPROLOL 0 Yes [id number] TAKE 1 U nivers SUCCINATE 9-23 TABLET BY ity o f XL 25 mg 24 00:00: MOUTH [place] hr tablet 00 TWICE Medical DAILY Branch METOPROLOL 0 Yes [id number] TAKE 1 U nivers SUCCINATE 9-23 TABLET BY ity o f XL 25 mg 24 00:00: MOUTH [place] hr tablet 00 TWICE Medical DAILY Branch METOPROLOL 0 Yes [id number] TAKE 1 U nivers SUCCINATE 9-23 TABLET BY ity o f XL 25 mg 24 00:00: MOUTH [place] hr tablet 00 TWICE Medical DAILY Branch METOPROLOL 0 Yes [id number] TAKE 1 U nivers SUCCINATE 9-23 TABLET BY ity o f XL 25 mg 24 00:00: MOUTH [place] hr tablet 00 TWICE Medical DAILY Branch METOPROLOL 0 Yes [id number] TAKE 1 U nivers SUCCINATE 9-23 TABLET BY ity o f XL 25 mg 24 00:00: MOUTH [place] hr tablet 00 TWICE Medical DAILY Branch METOPROLOL 0 Yes [id number] TAKE 1 U nivers SUCCINATE 9-23 TABLET BY ity o f XL 25 mg 24 00:00: MOUTH [place] hr tablet 00 TWICE Medical DAILY Branch METOPROLOL 0 Yes [id number] TAKE 1 U nivers SUCCINATE 9-23 TABLET BY ity o f XL 25 mg 24 00:00: MOUTH [place] hr tablet 00 TWICE Medical DAILY Branch METOPROLOL 0 Yes [id number] TAKE 1 U nivers SUCCINATE 9-23 TABLET BY ity o f XL 25 mg 24 00:00: MOUTH [place] hr tablet 00 TWICE Medical DAILY Branch METOPROLOL 0 Yes [id number] TAKE 1 U nivers SUCCINATE 9-23 TABLET BY ity o f XL 25 mg 24 00:00: MOUTH [place] hr tablet 00 TWICE Medical DAILY Branch METOPROLOL 0 Yes [id number] TAKE 1 U nivers SUCCINATE 9-23 TABLET BY ity o f XL 25 mg 24 00:00: MOUTH [place] hr tablet 00 TWICE Medical DAILY Branch METOPROLOL 0 Yes [id number] TAKE 1 U nivers SUCCINATE 9-23 TABLET BY ity o f XL 25 mg 24 00:00: MOUTH [place] hr tablet 00 TWICE Medical DAILY Branch METOPROLOL 0 Yes [id number] TAKE 1 U nivers SUCCINATE 9-23 TABLET BY ity o f XL 25 mg 24 00:00: MOUTH [place] hr tablet 00 TWICE Medical DAILY Branch METOPROLOL 0 Yes [id number] TAKE 1 U nivers SUCCINATE 9-23 TABLET BY ity o f XL 25 mg 24 00:00: MOUTH [place] hr tablet 00 TWICE Medical DAILY Branch METOPROLOL Yes [id number] TAKE 1 U nivers SUCCINATE 9-23 TABLET BY ity o f XL 25 mg 24 00:00: MOUTH [place] hr tablet 00 TWICE Medical DAILY Branch METOPROLOL Yes [id number] TAKE 1 U nivers SUCCINATE 9-23 TABLET BY ity o f XL 25 mg 24 00:00: MOUTH [place] hr tablet 00 TWICE Medical DAILY Branch METOPROLOL Yes [id number] TAKE 1 U nivers SUCCINATE 9-23 TABLET BY ity o f XL 25 mg 24 00:00: MOUTH [place] hr tablet 00 TWICE Medical DAILY Branch METOPROLOL 0 Yes [id number] TAKE 1 U nivers SUCCINATE 9-23 TABLET BY ity o f XL 25 mg 24 00:00: MOUTH [place] hr tablet 00 TWICE Medical DAILY Branch METOPROLOL 0 Yes [id number] TAKE 1 U nivers SUCCINATE 9-23 TABLET BY ity o f XL 25 mg 24 00:00: MOUTH [place] hr tablet 00 TWICE Medical DAILY Branch METOPROLOL 2022- No [id number] TAKE 1 [facility] SUCCINATE 9-23 01-05 TABLET BY ity of XL 25 mg 24 00:00: 00:00 MOUTH [place] tablet 00 :00 TWICE Medical DAILY Branch metoprolol Yes TAKE 1 Unive rs succinate 9-22 TABLET BY ity o f (TOPROL XL) 00:00: MOUTH [place] 25 mg 24 hr 00 TWICE MD tablet DAILY [facility] FreeStyle Yes APPLY 1 Unive rs Paco 14 9-16 SENSOR TO ity of Day Sensor 00:00: SKIN EVERY [place] kit 00 14 DAYS [facility] amLODIPine Yes TAKE 1 Unive rs (NORVASC) 5 8-10 TABLET BY ity of mg tablet 00:00: MOUTH [place] 00 TWICE MD DAILY [facility] flash Yes [id number] 1{each} Apply 1 Un [place] glucose 7-27 Each to ity of sensor 00:00: skin every [place] (FREESTYLE 00 14 Medical PACO 14 (fourteen) Branc h DAY SENSOR) days. Dx Kit E11.65 lancets Yes [id number] Use 4 Unive rs (ONETOUCH 7-27 Times ity of DELICA PLUS 00:00: daily. Dx [place] LANCET) E11.65 Medical gauge Misc Branch flash Yes [id number] 1{each} Apply 1 Un [place] glucose 7-27 Each to ity of sensor 00:00: skin every (FREESTYLE 00 14 Medical PACO 14 (fourteen) Branc h DAY SENSOR) days. Dx Kit E11.65 lancets Yes [id number] Use 4 Unive rs (ONETOUCH 7-27 Times ity of DELICA PLUS 00:00: daily. Dx [place] LANCET) E11.65 Medical gauge Misc Branch flash Yes [id number] 1{each} Apply 1 Un [place] glucose 7-27 Each to ity of sensor 00:00: skin every [place] (FREESTYLE 00 14 Medical PACO 14 (fourteen) Branc h DAY SENSOR) days. Dx Kit E11.65 lancets Yes [id number] Use 4 Unive rs (ONETOUCH 7-27 Times ity of DELICA PLUS 00:00: daily. Dx [place] LANCET) E11.65 Medical gauge Misc Branch flash Yes [id number] 1{each} Apply 1 Un [place] glucose 7-27 Each to ity of sensor 00:00: skin every [place] (FREESTYLE 00 14 Medical PACO 14 (fourteen) Branc h DAY SENSOR) days. Dx Kit E11.65 lancets 0 Yes [id number] Use 4 Unive rs (ONETOUCH 7-27 Times ity of DELICA PLUS 00:00: daily. Dx [place] LANCET) E11.65 Medical gauge Misc Branch flash 2021-0 Yes [id number] 1{each} Apply 1 Un [place] glucose 7-27 Each to ity of sensor 00:00: skin every [place] (FREESTYLE 00 14 Medical PACO 14 (fourteen) Branc h DAY SENSOR) days. Dx Kit E11.65 lancets 2020-0 Yes [id number] Use 4 Unive rs (ONETOUCH 7-27 Times ity of DELICA PLUS 00:00: daily. Dx [place] LANCET) 33 E11.65 Medical gauge Misc Branch lancets 2020-0 Yes [id number] Use 4 Unive rs (ONETOUCH 7-27 Times ity of DELICA PLUS 00:00: daily. Dx [place] LANCET) 33 E11.65 Medical gauge Misc Branch lancets 2020-0 Yes [id number] Use 4 Unive rs (ONETOUCH 7-27 Times ity of DELICA PLUS 00:00: daily. Dx [place] LANCET) 33 E11.65 Medical gauge Misc Branch lancets 2020-0 Yes [id number] Use 4 Unive rs (ONETOUCH 7-27 Times ity of DELICA PLUS 00:00: daily. Dx [place] LANCET) 33 E11.65 Medical gauge Misc Branch lancets 2020-0 Yes [id number] Use 4 Unive rs (ONETOUCH 7-27 Times ity of DELICA PLUS 00:00: daily. Dx [place] LANCET) 33 E11.65 Medical gauge Misc Branch lancets 2020-0 Yes [id number] Use 4 Unive rs (ONETOUCH 7-27 Times ity of DELICA PLUS 00:00: daily. Dx [place] LANCET) 33 E11.65 Medical gauge Misc Branch lancets 2020-0 Yes [id number] Use 4 Unive rs (ONETOUCH 7-27 Times ity of DELICA PLUS 00:00: daily. Dx [place] LANCET) 33 E11.65 Medical gauge Misc Branch lancets 2020-0 Yes [id number] Use 4 Unive rs (ONETOUCH 7-27 Times ity of DELICA PLUS 00:00: daily. Dx [place] LANCET) 33 E11.65 Medical gauge Misc Branch lancets 2020-0 Yes [id number] Use 4 Unive rs (ONETOUCH 7-27 Times ity of DELICA PLUS 00:00: daily. Dx [place] LANCET) 33 00 E11.65 Medical gauge Misc Branch lancets 2021-0 Yes [id number] Use 4 Unive rs (ONETOUCH 7-27 Times ity of DELICA PLUS 00:00: daily. Dx [place] LANCET) 33 00 E11.65 Medical gauge Misc Branch lancets 2021-0 Yes [id number] Use 4 Unive rs (ONETOUCH 7-27 Times ity of DELICA PLUS 00:00: daily. Dx [place] LANCET) 33 00 E11.65 Medical gauge Misc Branch lancets 1-0 Yes [id number] Use 4 Unive rs (ONETOUCH 7-27 Times ity of DELICA PLUS 00:00: daily. Dx [place] LANCET) 33 E11.65 Medical gauge Misc Branch lancets 1-0 Yes [id number] Use 4 Unive rs (ONETOUCH 7-27 Times ity of DELICA PLUS 00:00: daily. Dx [place] LANCET) 33 00 E11.65 Medical gauge Misc Branch lancets 1-0 Yes [id number] Use 4 Unive rs (ONETOUCH 7-27 Times ity of DELICA PLUS 00:00: daily. Dx [place] LANCET) 33 00 E11.65 Medical gauge Misc Branch lancets 1-0 Yes [id number] Use 4 Unive rs (ONETOUCH 7-27 Times ity of DELICA PLUS 00:00: daily. Dx [place] LANCET) 33 00 E11.65 Medical gauge Misc Branch lancets 2021-0 Yes [id number] Use 4 Unive rs (ONETOUCH 7-27 Times ity of DELICA PLUS 00:00: daily. Dx [place] LANCET) 33 00 E11.65 Medical gauge Misc Branch lancets 2021-0 Yes [id number] Use 4 Unive rs (ONETOUCH 7-27 Times ity of DELICA PLUS 00:00: daily. Dx [place] LANCET) 33 00 E11.65 Medical gauge Misc Branch lancets 2021-0 Yes [id number] Use 4 Unive rs (ONETOUCH 7-27 Times ity of DELICA PLUS 00:00: daily. Dx [place] LANCET) 33 00 E11.65 Medical gauge Misc Branch lancets 2021-0 Yes [id number] Use 4 Unive rs (ONETOUCH 7-27 Times ity of DELICA PLUS 00:00: daily. Dx [place] LANCET) 33 00 E11.65 Medical gauge Misc Branch lancets 2020-0 Yes [id number] Use 4 Unive rs (ONETOUCH 7-27 Times ity of DELICA PLUS 00:00: daily. Dx [place] LANCET) 33 00 E11.65 Medical gauge Misc Branch lancets 2020-0 Yes [id number] Use 4 Unive rs (ONETOUCH 7-27 Times ity of DELICA PLUS 00:00: daily. Dx [place] LANCET) 33 00 E11.65 Medical gauge Misc Branch lancets 2020-0 Yes [id number] Use 4 Unive rs (ONETOUCH 7-27 Times ity of DELICA PLUS 00:00: daily. Dx [place] LANCET) 33 00 E11.65 Medical gauge Misc Branch lancets 2020-0 Yes [id number] Use 4 Unive rs (ONETOUCH 7-27 Times ity of DELICA PLUS 00:00: daily. Dx [place] LANCET) 33 00 E11.65 Medical gauge Misc Branch lancets 2020-0 Yes [id number] Use 4 Unive rs (ONETOUCH 7-27 Times ity of DELICA PLUS 00:00: daily. Dx [place] LANCET) 33 00 E11.65 Medical gauge Misc Branch lancets 2020-0 Yes [id number] Use 4 Unive rs (ONETOUCH 7-27 Times ity of DELICA PLUS 00:00: daily. Dx [place] LANCET) 33 00 E11.65 Medical gauge Misc Branch lancets 1-0 Yes [id number] Use 4 Unive rs (ONETOUCH 7-27 Times ity of DELICA PLUS 00:00: daily. Dx [place] LANCET) 33 00 E11.65 Medical gauge Misc Branch lancets 1-0 Yes [id number] Use 4 Unive rs (ONETOUCH 7-27 Times ity of DELICA PLUS 00:00: daily. Dx [place] LANCET) 33 00 E11.65 Medical gauge Misc Branch lancets 1-0 Yes [id number] Use 4 Unive rs (ONETOUCH 7-27 Times ity of DELICA PLUS 00:00: daily. Dx [place] LANCET) 33 00 E11.65 Medical gauge Misc Branch lancets 2021-0 Yes [id number] Use 4 Unive rs (ONETOUCH 7-27 Times ity of DELICA PLUS 00:00: daily. Dx [place] LANCET) 33 00 E11.65 Medical gauge Misc Branch lancets 1-0 Yes [id number] Use 4 Unive rs (ONETOUCH 7-27 Times ity of DELICA PLUS 00:00: daily. Dx [place] LANCET) 33 00 E11.65 Medical gauge Misc Branch lancets 1-0 Yes [id number] Use 4 Unive rs (ONETOUCH 7-27 Times ity of DELICA PLUS 00:00: daily. Dx [place] LANCET) 33 00 E11.65 Medical gauge Misc Branch lancets 2020-0 Yes [id number] Use 4 Unive rs (ONETOUCH 7-27 Times ity of DELICA PLUS 00:00: daily. Dx [place] LANCET) 33 00 E11.65 Medical gauge Misc Branch lancets 2020-0 Yes [id number] Use 4 Unive rs (ONETOUCH 7-27 Times ity of DELICA PLUS 00:00: daily. Dx [place] LANCET) 33 00 E11.65 Medical gauge Misc Branch lancets 2020-0 Yes [id number] Use 4 Unive rs (ONETOUCH 7-27 Times ity of DELICA PLUS 00:00: daily. Dx [place] LANCET) 33 00 E11.65 Medical gauge Misc Branch lancets 1-0 Yes [id number] Use 4 Unive rs (ONETOUCH 7-27 Times ity of DELICA PLUS 00:00: daily. Dx [place] LANCET) 33 00 E11.65 Medical gauge Misc Branch lancets 2021-0 Yes [id number] Use 4 Unive rs (ONETOUCH 7-27 Times ity of DELICA PLUS 00:00: daily. Dx [place] LANCET) 33 00 E11.65 Medical gauge Misc Branch lancets 1-0 Yes [id number] Use 4 Unive rs (ONETOUCH 7-27 Times ity of DELICA PLUS 00:00: daily. Dx [place] LANCET) 33 00 E11.65 Medical gauge Misc Branch lancets 1-0 Yes [id number] Use 4 Unive rs (ONETOUCH 7-27 Times ity of DELICA PLUS 00:00: daily. Dx [place] LANCET) 33 00 E11.65 Medical gauge Misc Branch lancets 2021-0 Yes [id number] Use 4 Unive rs (ONETOUCH 7-27 Times ity of DELICA PLUS 00:00: daily. Dx [place] LANCET) 33 00 E11.65 Medical gauge Misc Branch lancets 2021-0 Yes [id number] Use 4 Unive rs (ONETOUCH 7-27 Times ity of DELICA PLUS 00:00: daily. Dx [place] LANCET) 33 00 E11.65 Medical gauge Misc Branch lancets 2021-0 Yes [id number] Use 4 Unive rs (ONETOUCH 7-27 Times ity of DELICA PLUS 00:00: daily. Dx [place] LANCET) 33 00 E11.65 Medical gauge Misc Branch lancets 2021-0 Yes [id number] Use 4 Unive rs (ONETOUCH 7-27 Times ity of DELICA PLUS 00:00: daily. Dx [place] LANCET) 33 00 E11.65 Medical gauge Misc Branch lancets 2021-0 Yes [id number] Use 4 Unive rs (ONETOUCH 7-27 Times ity of DELICA PLUS 00:00: daily. Dx [place] LANCET) 33 00 E11.65 Medical gauge Misc Branch lancets 2021-0 Yes [id number] Use 4 Unive rs (ONETOUCH 7-27 Times ity of DELICA PLUS 00:00: daily. Dx [place] LANCET) 33 E11.65 Medical gauge Misc Branch lancets 2021-0 Yes [id number] Use 4 Unive rs (ONETOUCH 7-27 Times ity of DELICA PLUS 00:00: daily. Dx [place] LANCET) 33 00 E11.65 Medical gauge Misc Branch lancets 2021-0 Yes [id number] Use 4 Unive rs (ONETOUCH 7-27 Times ity of DELICA PLUS 00:00: daily. Dx [place] LANCET) 33 00 E11.65 Medical gauge Misc Branch lancets 2021-0 Yes [id number] Use 4 Unive rs (ONETOUCH 7-27 Times ity of DELICA PLUS 00:00: daily. Dx [place] LANCET) 33 00 E11.65 Medical gauge Misc Branch lancets 2021-0 Yes [id number] Use 4 Unive rs (ONETOUCH 7-27 Times ity of DELICA PLUS 00:00: daily. Dx [place] LANCET) 33 00 E11.65 Medical gauge Misc Branch lancets 2020-0 Yes [id number] Use 4 Unive rs (ONETOUCH 7-27 Times ity of DELICA PLUS 00:00: daily. Dx [place] LANCET) 33 00 E11.65 Medical gauge Misc Branch lancets 2020-0 Yes [id number] Use 4 Unive rs (ONETOUCH 7-27 Times ity of DELICA PLUS 00:00: daily. Dx [place] LANCET) 33 00 E11.65 Medical gauge Misc Branch lancets 2020-0 Yes [id number] Use 4 Unive rs (ONETOUCH 7-27 Times ity of DELICA PLUS 00:00: daily. Dx [place] LANCET) 33 00 E11.65 Medical gauge Misc Branch lancets 2020-0 Yes [id number] Use 4 Unive rs (ONETOUCH 7-27 Times ity of DELICA PLUS 00:00: daily. Dx [place] LANCET) 33 00 E11.65 Medical gauge Misc Branch lancets 2020-0 Yes [id number] Use 4 Unive rs (ONETOUCH 7-27 Times ity of DELICA PLUS 00:00: daily. Dx [place] LANCET) 33 00 E11.65 Medical gauge Misc Branch lancets 1-0 Yes [id number] Use 4 Unive rs (ONETOUCH 7-27 Times ity of DELICA PLUS 00:00: daily. Dx [place] LANCET) 33 00 E11.65 Medical gauge Misc Branch lancets 1-0 Yes [id number] Use 4 Unive rs (ONETOUCH 7-27 Times ity of DELICA PLUS 00:00: daily. Dx [place] LANCET) 33 00 E11.65 Medical gauge Misc Branch lancets 2021-0 Yes [id number] Use 4 Unive rs (ONETOUCH 7-27 Times ity of DELICA PLUS 00:00: daily. Dx [place] LANCET) 33 00 E11.65 Medical gauge Misc Branch lancets 1-0 Yes [id number] Use 4 Unive rs (ONETOUCH 7-27 Times ity of DELICA PLUS 00:00: daily. Dx [place] LANCET) 33 00 E11.65 Medical gauge Misc Branch lancets 2021-0 Yes [id number] Use 4 Unive rs (ONETOUCH 7-27 Times ity of DELICA PLUS 00:00: daily. Dx [place] LANCET) 33 E11.65 Medical gauge Misc Branch lancets 1-0 Yes [id number] Use 4 Unive rs (ONETOUCH 7-27 Times ity of DELICA PLUS 00:00: daily. Dx [place] LANCET) 33 00 E11.65 Medical gauge Misc Branch lancets 1-0 Yes [id number] Use 4 Unive rs (ONETOUCH 7-27 Times ity of DELICA PLUS 00:00: daily. Dx [place] LANCET) 33 00 E11.65 Medical gauge Misc Branch lancets 1-0 Yes [id number] Use 4 Unive rs (ONETOUCH 7-27 Times ity of DELICA PLUS 00:00: daily. Dx [place] LANCET) 33 E11.65 Medical gauge Misc Branch lancets 2020-0 Yes [id number] Use 4 Unive rs (ONETOUCH 7-27 Times ity of DELICA PLUS 00:00: daily. Dx [place] LANCET) 33 00 E11.65 Medical gauge Misc Branch lancets 1-0 Yes [id number] Use 4 Unive rs (ONETOUCH 7-27 Times ity of DELICA PLUS 00:00: daily. Dx [place] LANCET) 33 E11.65 Medical gauge Misc Branch lancets 1-0 Yes [id number] Use 4 Unive rs (ONETOUCH 7-27 Times ity of DELICA PLUS 00:00: daily. Dx [place] LANCET) 33 E11.65 Medical gauge Misc Branch lancets 2021-0 Yes [id number] Use 4 Unive rs (ONETOUCH 7-27 Times ity of DELICA PLUS 00:00: daily. Dx [place] LANCET) 33 E11.65 Medical gauge Misc Branch lancets 2021-0 Yes [id number] Use 4 Unive rs (ONETOUCH 7-27 Times ity of DELICA PLUS 00:00: daily. Dx [place] LANCET) 33 00 E11.65 Medical gauge Misc Branch lancets 2020-0 Yes [id number] Use 4 Unive rs (ONETOUCH 7-27 Times ity of DELICA PLUS 00:00: daily. Dx [place] LANCET) 33 00 E11.65 Medical gauge Misc Branch lancets 1-0 Yes [id number] Use 4 Unive rs (ONETOUCH 7-27 Times ity of DELICA PLUS 00:00: daily. Dx [place] LANCET) 33 00 E11.65 Medical gauge Misc Branch lancets 1-0 Yes [id number] Use 4 Unive rs (ONETOUCH 7-27 Times ity of DELICA PLUS 00:00: daily. Dx [place] LANCET) 33 00 E11.65 Medical gauge Misc Branch lancets 1-0 Yes [id number] Use 4 Unive rs (ONETOUCH 7-27 Times ity of DELICA PLUS 00:00: daily. Dx [place] LANCET) 33 E11.65 Medical gauge Misc Branch lancets 1-0 Yes [id number] Use 4 Unive rs (ONETOUCH 7-27 Times ity of DELICA PLUS 00:00: daily. Dx [place] LANCET) 33 E11.65 Medical gauge Misc Branch lancets 1-0 Yes [id number] Use 4 Unive rs (ONETOUCH 7-27 Times ity of DELICA PLUS 00:00: daily. Dx [place] LANCET) 33 E11.65 Medical gauge Misc Branch lancets 1-0 Yes [id number] Use 4 Unive rs (ONETOUCH 7-27 Times ity of DELICA PLUS 00:00: daily. Dx [place] LANCET) 33 E11.65 Medical gauge Misc Branch lancets 1-0 Yes [id number] Use 4 Unive rs (ONETOUCH 7-27 Times ity of DELICA PLUS 00:00: daily. Dx [place] LANCET) 33 E11.65 Medical gauge Misc Branch lancets 2021-0 Yes [id number] Use 4 Unive rs (ONETOUCH 7-27 Times ity of DELICA PLUS 00:00: daily. Dx [place] LANCET) 33 E11.65 Medical gauge Misc Branch lancets 2021-0 Yes [id number] Use 4 Unive rs (ONETOUCH 7-27 Times ity of DELICA PLUS 00:00: daily. Dx [place] LANCET) 33 E11.65 Medical gauge Misc Branch lancets 2020-0 Yes [id number] Use 4 Unive rs (ONETOUCH 7-27 Times ity of DELICA PLUS 00:00: daily. Dx [place] LANCET) 33 00 E11.65 Medical gauge Misc Branch lancets 2020-0 Yes [id number] Use 4 Unive rs (ONETOUCH 7-27 Times ity of DELICA PLUS 00:00: daily. Dx [place] LANCET) 33 00 E11.65 Medical gauge Misc Branch lancets 2020-0 Yes [id number] Use 4 Unive rs (ONETOUCH 7-27 Times ity of DELICA PLUS 00:00: daily. Dx [place] LANCET) 33 00 E11.65 Medical gauge Misc Branch lancets 2020-0 Yes [id number] Use 4 Unive rs (ONETOUCH 7-27 Times ity of DELICA PLUS 00:00: daily. Dx [place] LANCET) 33 E11.65 Medical gauge Misc Branch lancets 2020-0 Yes [id number] Use 4 Unive rs (ONETOUCH 7-27 Times ity of DELICA PLUS 00:00: daily. Dx [place] LANCET) 33 00 E11.65 Medical gauge Misc Branch lancets 2020-0 Yes [id number] Use 4 Unive rs (ONETOUCH 7-27 Times ity of DELICA PLUS 00:00: daily. Dx [place] LANCET) 33 E11.65 Medical gauge Misc Branch lancets 2020-0 Yes [id number] Use 4 Unive rs (ONETOUCH 7-27 Times ity of DELICA PLUS 00:00: daily. Dx [place] LANCET) 33 00 E11.65 Medical gauge Misc Branch lancets 1-0 Yes [id number] Use 4 Unive rs (ONETOUCH 7-27 Times ity of DELICA PLUS 00:00: daily. Dx [place] LANCET) 33 00 E11.65 Medical gauge Misc Branch lancets 1-0 Yes [id number] Use 4 Unive rs (ONETOUCH 7-27 Times ity of DELICA PLUS 00:00: daily. Dx [place] LANCET) 33 00 E11.65 Medical gauge Misc Branch lancets 2020-0 Yes [id number] Use 4 Unive rs (ONETOUCH 7-27 Times ity of DELICA PLUS 00:00: daily. Dx [place] LANCET) 33 00 E11.65 Medical gauge Misc Branch lancets 2021-0 Yes [id number] Use 4 Unive rs (ONETOUCH 7-27 Times ity of DELICA PLUS 00:00: daily. Dx [place] LANCET) 33 E11.65 Medical gauge Misc Branch lancets 1-0 Yes [id number] Use 4 Unive rs (ONETOUCH 7-27 Times ity of DELICA PLUS 00:00: daily. Dx [place] LANCET) 33 00 E11.65 Medical gauge Misc Branch lancets 1-0 Yes [id number] Use 4 Unive rs (ONETOUCH 7-27 Times ity of DELICA PLUS 00:00: daily. Dx [place] LANCET) 33 E11.65 Medical gauge Misc Branch lancets 1-0 Yes [id number] Use 4 Unive rs (ONETOUCH 7-27 Times ity of DELICA PLUS 00:00: daily. Dx [place] LANCET) 33 E11.65 Medical gauge Misc Branch lancets 2020-0 Yes [id number] Use 4 Unive rs (ONETOUCH 7-27 Times ity of DELICA PLUS 00:00: daily. Dx [place] LANCET) 33 00 E11.65 Medical gauge Misc Branch lancets 1-0 Yes [id number] Use 4 Unive rs (ONETOUCH 7-27 Times ity of DELICA PLUS 00:00: daily. Dx [place] LANCET) 33 E11.65 Medical gauge Misc Branch lancets 1-0 Yes [id number] Use 4 Unive rs (ONETOUCH 7-27 Times ity of DELICA PLUS 00:00: daily. Dx [place] LANCET) 33 00 E11.65 Medical gauge Misc Branch lancets 1-0 Yes [id number] Use 4 Unive rs (ONETOUCH 7-27 Times ity of DELICA PLUS 00:00: daily. Dx [place] LANCET) 33 00 E11.65 Medical gauge Misc Branch lancets 1-0 Yes [id number] Use 4 Unive rs (ONETOUCH 7-27 Times ity of DELICA PLUS 00:00: daily. Dx [place] LANCET) 33 00 E11.65 Medical gauge Misc Branch lancets 2020-0 Yes [id number] Use 4 Unive rs (ONETOUCH 7-27 Times ity of DELICA PLUS 00:00: daily. Dx [place] LANCET) 33 00 E11.65 Medical gauge Misc Branch lancets 2020-0 Yes [id number] Use 4 Unive rs (ONETOUCH 7-27 Times ity of DELICA PLUS 00:00: daily. Dx [place] LANCET) 33 00 E11.65 Medical gauge Misc Branch lancets 1-0 Yes [id number] Use 4 Unive rs (ONETOUCH 7-27 Times ity of DELICA PLUS 00:00: daily. Dx [place] LANCET) 33 00 E11.65 Medical gauge Misc Branch lancets 2020-0 Yes [id number] Use 4 Unive rs (ONETOUCH 7-27 Times ity of DELICA PLUS 00:00: daily. Dx [place] LANCET) 33 00 E11.65 Medical gauge Misc Branch lancets 1-0 Yes [id number] Use 4 Unive rs (ONETOUCH 7-27 Times ity of DELICA PLUS 00:00: daily. Dx [place] LANCET) 33 00 E11.65 Medical gauge Misc Branch lancets 1-0 Yes [id number] Use 4 Unive rs (ONETOUCH 7-27 Times ity of DELICA PLUS 00:00: daily. Dx [place] LANCET) 33 00 E11.65 Medical gauge Misc Branch lancets 1-0 Yes [id number] Use 4 Unive rs (ONETOUCH 7-27 Times ity of DELICA PLUS 00:00: daily. Dx [place] LANCET) 33 00 E11.65 Medical gauge Misc Branch lancets 1-0 Yes [id number] Use 4 Unive rs (ONETOUCH 7-27 Times ity of DELICA PLUS 00:00: daily. Dx [place] LANCET) 33 00 E11.65 Medical gauge Misc Branch lancets 1-0 Yes [id number] Use 4 Unive rs (ONETOUCH 7-27 Times ity of DELICA PLUS 00:00: daily. Dx [place] LANCET) 33 00 E11.65 Medical gauge Misc Branch lancets 1-0 Yes [id number] Use 4 Unive rs (ONETOUCH 7-27 Times ity of DELICA PLUS 00:00: daily. Dx [place] LANCET) 33 00 E11.65 Medical [facility] Branch lancets Yes [id number] Use 4 Unive rs (ONETOUCH 7-27 Times ity of DELICA PLUS 00:00: daily. Dx [place] LANCET) 33 00 E11.65 Medical [facility] Branch lancets Yes [id number] Use 4 Unive rs (ONETOUCH 7-27 Times ity of DELICA PLUS 00:00: daily. Dx [place] LANCET) 33 [address] E11.[address] [facility] Branch OneTouch Yes TEST FOUR Univ ers Verio test 7-27 TIMES ity of strips strp 00:00: DAILY [place] 00 MD Bebeto woodruff [facility] Center OneTouch Yes USE FOUR Unive rs Delica Plus 7-27 TIMES ity of Lancet 33 00:00: DAILY [facility] 00 [facility] flash 2021- No [id number] 1{each} Apply 1 U nivers glucose 06-19 Each to ity of sensor 00:00: 00:00 [place] (FREESTYLE 00 :00 14 Medical PACO 14 (fourteen) Branc h DAY SENSOR) days. Dx Kit E11.65 Magnesium 2020- No 1{tbl} Take 1 Uni vers 250 mg Tab 05-10-17 tablet by ity of 20:49: 00:00 mouth [place] 05 :00 daily. Medical Branch Magnesium 2020- No 1{tbl} Take 1 Uni vers 250 mg Tab 05-1017 tablet by ity of 20:49: 00:00 mouth [place] 05 :00 daily. Medical Branch losartan 2020- No 100mg Take 100 Uni vers 100 mg 05-02-08 mg by ity of tablet 11:28: 00:00 mouth [place] 42 :00 daily. Medical Branch metoprolol 2020- No 25mg Take 25 mg Univers succinate 05-02-08 by mouth 2 ity of XL 25 mg 24 11:28: 00:00 (two) [place] hr tablet 42 :00 times Medical daily. Branch losartan 2020- No 100mg Take 100 Uni vers 100 mg 6-09 06-08 mg by ity of tablet 11:28: 00:00 mouth [place] 42 :00 daily. Medical Branch metoprolol 2020- No 25mg Take 25 mg [facility] succinate 05-02- by mouth 2 ity of XL 25 mg 24 11:28: 00:00 (two) [place] hr tablet 42 :00 times Medical daily. Branch Thyroid, 2020- No 1{tbl} Take 1 Univ ers [place], 05-01- tablet by ity of (ARMOUR 14:17: 00:00 mouth [place] THYROID) 00 :00 daily. Medical 120 mg Branch tablet Thyroid, 2020- No 1{tbl} Take 1 Univ ers [place], 05-01- tablet by ity of (ARMOUR 14:17: 00:00 mouth [place] THYROID) 00 :00 daily. Medical 120 mg Branch tablet omeprazole Yes TAKE 1 Unive rs 40 mg 5-22 CAPSULE BY ity of capsule 00:00: MOUTH [place] 00 EVERY DAY Medical 30 MINUTES Branch BEFORE BREAKFAST omeprazole Yes TAKE 1 Unive rs 40 mg 5-22 CAPSULE BY ity of capsule 00:00: MOUTH [place] 00 EVERY DAY Medical 30 MINUTES Branch BEFORE BREAKFAST omeprazole Yes TAKE 1 Unive rs 40 mg 5-22 CAPSULE BY ity of capsule 00:00: MOUTH [place] 00 EVERY DAY Medical 30 MINUTES Branch BEFORE BREAKFAST omeprazole Yes TAKE 1 Unive rs 40 mg 5-22 CAPSULE BY ity of capsule 00:00: MOUTH [place] 00 EVERY DAY Medical 30 MINUTES Branch BEFORE BREAKFAST omeprazole 2021- No TAKE 1 Univ ers 40 mg 5-22 08-16 CAPSULE BY ity of capsule 00:00: 00:00 MOUTH [place] 00 :00 EVERY DAY Medical 30 MINUTES Branch BEFORE BREAKFAST atorvastati 2020- No 20mg Take 20 mg Univers n 20 mg 03-20- by mouth ity of tablet 15:10: 00:00 at [place] 18 :00 bedtime. Medical Branch atorvastati 2020- No 20mg Take 20 mg Univers n 20 mg -20 03-27 by mouth ity of tablet 15:10: 00:00 at [place] 18 :00 bedtime. Medical Branch gabapentin 2020- No [id number] 100mg Take 1 Univers 100 mg 4-15 -17 capsule by ity of capsule 00:00: 00:00 mouth 3 00 :00 (three) Medical times Branch daily. Insulin 2020- No [id number] 42U inject Uni vers Glargine 02-27 42-46 ity of (BASAGLAR 00:00: 00:00 Units [place] KWIKPEN 00 :00 under the Medical U-100 skin at [place] INSULIN) bedtime. 100 unit/mL E11.65 (3 mL) injection Insulin 2020- No [id number] 42U inject Uni vers Glargine 02-27 42-46 ity of (BASAGLAR 00:00: 00:00 Units [place] KWIKPEN 00 :00 under the Medical U-100 skin at [place] INSULIN) bedtime. 100 unit/mL E11.65 (3 mL) injection gabapentin 2020- No [id number] 100mg Take 1 Univers 100 mg 3-24 -15 capsule by ity of capsule 00:00: 00:00 mouth 3 [place] 00 :00 (three) Medical times Branch daily. CYCLOBENZAP 2020- No [id number] TAKE 1 Univers RINE 10 mg 3-16 03-27 TABLET BY ity of tablet 00:00: 00:00 MOUTH [place] 00 :00 THREE Medical TIMES [place] DAILY CYCLOBENZAP 2020- No [id number] TAKE 1 Univers RINE 10 mg 3-16 03-27 TABLET BY ity of tablet 00:00: 00:00 MOUTH [place] 00 :00 [facility] Medical TIMES [place] DAILY metoprolol Yes 50mg Take 1 Unive rs tartrate 2-22 tablet (50 ity o f (LOPRESSOR) 00:00: mg[place] 50 mg 00 mouth. tablet [facility] [place] omeprazole Yes TAKE 1 Unive rs (PriLOSEC) 2-22 CAPSULE BY ity of 40 MG 00:00: MOUTH [place] capsule 00 EVERY DAY 30 MINUTES [place] BEFORE n [facility] metoprolol 2020- No 50mg Take 50 mg Univers tartrate 50 -15 03- by mouth 2 i ty of mg tablet 00:00: 00:00 (two) [place] 00 :00 times Medical daily with Branch meals. metoprolol 2020- No 50mg Take 50 mg Univers tartrate 50 01-15 by mouth 2 i ty of mg tablet 00:00: 00:00 (two) [place] 00 :00 times Medical daily with Branch meals. cyanocobala Yes Univer s min, 2-15 ity of vitamin 00:00: [place] B-12, 1,000 00 mcg/15 mL [facility] SITagliptin 2020- No [id number] 50mg Take 1 Univers (JANUVIA) 12-29-20 tablet by ity of 50 mg 00:00: 00:00 mouth [place] tablet 00 :00 daily. [facility] SITagliptin 2020- No [id number] 50mg Take 1 Univers (JANUVIA) 12-29- tablet by ity of 50 mg 00:00: 00:00 mouth [place] tablet 00 :00 daily. [facility] Branch losartan Yes 100mg Take 1 Univer s (COZAAR) 1-30 tablet ity of 100 mg 00:00: (100 mg) [place] tablet 00 by mouth. MD Bebeto woodruff [facility] levothyroxi 2020- No [id number] 25ug Take 1 Univers ne 25 mcg 12-19 tablet by ity of tablet 00:00: 00:00 mouth [place] 00 :00 every Medical morning. [place] levothyroxi 2020- No [id number] 25ug Take 1 Univers ne 25 mcg 12-19- tablet by ity of tablet 00:00: 00:00 mouth [place] 00 :00 every Medical morning. Branch insulin 2019-11- No [id number] 8U inject Uni vers aspart 01-16- 8-12 Units ity of U-100 00:00: 00:00 under the [place] (NOVOLOG 00 :00 skin 5 Medical FLEXPEN (five) Branch U-100 times INSULIN) daily. 100 unit/mL (3 mL) injection insulin 2019-11- No [id number] 8U inject Uni vers aspart 01-16- 8-12 Units ity of U-100 00:00: 00:00 under the [place] (NOVOLOG 00 :00 skin 5 Medical FLEXPEN (five) Branch U-100 times INSULIN) daily. 100 unit/mL (3 mL) injection FREESTYLE 2019-11- No TEST Univ ers PACO 14 01-05 DIRECTED. ity o f DAY SENSOR 00:00: 00:00 [place] Kit 00 :00 Medical Branch FREESTYLE 2019-11- No TEST Univ ers PACO 14 01-05 DIRECTED. ity o f DAY SENSOR 00:00: 00:00 [place] Kit 00 :00 Medical Branch furosemide 2019-11- No 40mg Take 40 mg Univers 40 mg 12-31 by mouth 2 ity of tablet 00:00: 00:00 (two) [place] 00 :00 times Medical daily. Branch furosemide 2019-11- No 40mg Take 40 mg Univers 40 mg 12-31 by mouth 2 ity of tablet 00:00: 00:00 (two) [place] 00 :00 times Medical daily. Branch atorvastati 2019-11 Yes 20mg Take 1 Univ ers n (LIPITOR) 1-19 tablet (20 it y of 20 mg 00:00: mg) by [place] tablet 00 mouth. MD Bebeto woodruff [facility] Center ADELA PEN 2019-11- No USE [facility] s NEEDLE 32 12-03 DIRECTED ity o f gauge x 00:00: 00:00 USE 4 5 [place] " Ndle 00 :00 TIMES Medical DAILY WITH Branch INSILIN INJECTIONS ADELA PEN 2019-11- [facility] 12-03 DIRECTED ity o f gauge x 00:00: 00:00 USE 4 5 [place] " Ndle 00 :00 TIMES Medical DAILY WITH Branch INSILIN INJECTIONS aspirin 2018-11 Yes Univers (ASPIR-81 0-21 ity of ORAL) 00:00: [place] 00 MD Bebeto woodruff [facility] Center insulin 2018-11 Yes 8U Inject [facility] aspart 0-21 8-12 Units ity of U-100 00:00: under the [place] (NovoLOG) 00 skin. 100 unit/mL Bebeto (3 mL) n insulin pen [facility] Center insulin 2018-11 Yes Univers glargine,hu 0-21 ity of m.rec.anlog 00:00: [place] (BASAGLAR 00 MD MARIA LUZ [place] U-100 n [facility]ULIN [facility] furosemide Yes 80mg Take 1 Unive rs (LASIX) 80 - tablet (80 ity of mg tablet 00:00: mg) by [place] 00 mouth twice Bebeto daily. n [facility] thyroid 2021- No 1{tbl} Take 1 Unive rs (ARMOUR 07-28 07-27 tablet by ity of THYROID) 00:00: 00:00 mouth. [place] 120 mg tab 00 :00 tablet Bebeto n [facility] latanoprost 2016-[address] 1 Uni vers 0.005 % 1-25 GTT IN OU ity of ophthalmic 00:00: HS. [place] drops Medical Branch latanoprost 2016-[address] 1 Uni vers 0.005 % 1-25 GTT IN OU ity of ophthalmic 00:00: HS. [place] drops Medical Branch latanoprost 2016-[address] 1 Uni vers 0.005 % 1-25 GTT IN OU ity of ophthalmic 00:00: HS. [place] drops Medical Branch latanoprost 2016-[address] 1 Uni vers 0.005 % 1-25 GTT IN OU ity of ophthalmic 00:00: HS. [place] drops Medical Branch latanoprost 2016-[address] 1 Uni vers 0.005 % 1-25 GTT IN OU ity of ophthalmic 00:00: HS. [place] drops Medical Branch latanoprost 2016-[address] 1 Uni vers 0.005 % 1-25 GTT IN OU ity of ophthalmic 00:00: HS. [place] drops Medical Branch latanoprost 2016-[address] 1 Uni vers 0.005 % 1-25 GTT IN OU ity of ophthalmic 00:00: HS. [place] drops 00 Medical Branch latanoprost 2016-[address] 1 Uni vers 0.005 % 1-25 GTT IN OU ity of ophthalmic 00:00: HS. [place] drops Medical Branch latanoprost 2016-[address] 1 Uni vers 0.005 % 1-25 GTT IN OU ity of ophthalmic 00:00: HS. [place] drops 00 Medical Branch latanoprost 2016-[address] 1 Uni vers 0.005 % 1-25 GTT IN OU ity of ophthalmic 00:00: HS. [place] drops 00 Medical Branch latanoprost 2016-[address] 1 Uni vers 0.005 % 1-25 GTT IN OU ity of ophthalmic 00:00: HS. [place] drops 00 Medical Branch latanoprost [address] 1 Uni vers 0.005 % 1-25 GTT IN OU ity of ophthalmic 00:00: HS. [place] drops 00 Medical Branch latanoprost [address] 1 Uni vers 0.005 % 1-25 GTT IN OU ity of ophthalmic 00:00: HS. [place] drops Medical Branch latanoprost [address] 1 Uni vers 0.005 % 1-25 GTT IN OU ity of ophthalmic 00:00: HS. [place] drops 00 Medical Branch latanoprost [address] 1 Uni vers 0.005 % 1-25 GTT IN OU ity of ophthalmic 00:00: HS. [place] drops 00 Medical Branch latanoprost 2016-[address] 1 Uni vers 0.005 % 1-25 GTT IN OU ity of ophthalmic 00:00: HS. [place] drops 00 Medical Branch latanoprost 2016-[address] 1 Uni vers 0.005 % 1-25 GTT IN OU ity of ophthalmic 00:00: HS. [place] drops Medical Branch latanoprost [address] 1 Uni vers 0.005 % 1-25 GTT IN OU ity of ophthalmic 00:00: HS. [place] drops 00 Medical Branch latanoprost 2016-[address] 1 Uni vers 0.005 % 1-25 GTT IN OU ity of ophthalmic 00:00: HS. [place] drops Medical Branch latanoprost [address] 1 Uni vers 0.005 % 1-25 GTT IN OU ity of ophthalmic 00:00: HS. [place] drops 00 Medical Branch latanoprost [address] 1 Uni vers 0.005 % 1-25 GTT IN OU ity of ophthalmic 00:00: HS. [place] drops 00 Medical Branch latanoprost 2016-[address] 1 Uni vers 0.005 % 1-25 GTT IN OU ity of ophthalmic 00:00: HS. [place] drops 00 Medical Branch latanoprost 2016-[address] 1 Uni vers 0.005 % 1-25 GTT IN OU ity of ophthalmic 00:00: HS. [place] drops 00 Medical Branch latanoprost 2016-[address] 1 Uni vers 0.005 % 1-25 GTT IN OU ity of ophthalmic 00:00: HS. [place] drops 00 Medical Branch latanoprost [address] 1 Uni vers 0.005 % 1-25 GTT IN OU ity of ophthalmic 00:00: HS. [place] drops Medical Branch latanoprost 2016-[address] 1 Uni vers 0.005 % 1-25 GTT IN OU ity of ophthalmic 00:00: HS. [place] drops Medical Branch latanoprost 2016-[address] 1 Uni vers 0.005 % 1-25 GTT IN OU ity of ophthalmic 00:00: HS. [place] drops Medical Branch latanoprost 2016-[address] 1 Uni vers 0.005 % 1-25 GTT IN OU ity of ophthalmic 00:00: HS. [place] drops Medical Branch latanoprost 2016-[address] 1 Uni vers 0.005 % 1-25 GTT IN OU ity of ophthalmic 00:00: HS. [place] drops Medical Branch latanoprost 2016-[address] 1 Uni vers 0.005 % 1-25 GTT IN OU ity of ophthalmic 00:00: HS. [place] drops Medical Branch latanoprost 2016-[address] 1 Uni vers 0.005 % 1-25 GTT IN OU ity of ophthalmic 00:00: HS. [place] drops Medical Branch latanoprost 2016-[address] 1 Uni vers 0.005 % 1-25 GTT IN OU ity of ophthalmic 00:00: HS. [place] drops Medical Branch latanoprost 2016-[address] 1 Uni vers 0.005 % 1-25 GTT IN OU ity of ophthalmic 00:00: HS. [place] drops Medical Branch latanoprost 2016-[address] 1 Uni vers 0.005 % 1-25 GTT IN OU ity of ophthalmic 00:00: HS. [place] drops Medical Branch latanoprost 2016-[address] 1 Uni vers 0.005 % 1-25 GTT IN OU ity of ophthalmic 00:00: HS. [place] drops Medical Branch latanoprost 2016-[address] 1 Uni vers 0.005 % 1-25 GTT IN OU ity of ophthalmic 00:00: HS. [place] drops 00 Medical Branch latanoprost 2016-[address] 1 Uni vers 0.005 % 1-25 GTT IN OU ity of ophthalmic 00:00: HS. [place] drops 00 Medical Branch latanoprost 2016-[address] 1 Uni vers 0.005 % 1-25 GTT IN OU ity of ophthalmic 00:00: HS. [place] drops 00 Medical Branch latanoprost [address] 1 Uni vers 0.005 % 1-25 GTT IN OU ity of ophthalmic 00:00: HS. [place] drops 00 Medical Branch latanoprost [address] 1 Uni vers 0.005 % 1-25 GTT IN OU ity of ophthalmic 00:00: HS. [place] drops Medical Branch latanoprost [address] 1 Uni vers 0.005 % 1-25 GTT IN OU ity of ophthalmic 00:00: HS. [place] drops 00 Medical Branch latanoprost [address] 1 Uni vers 0.005 % 1-25 GTT IN OU ity of ophthalmic 00:00: HS. [place] drops 00 Medical Branch latanoprost 2016-[address] 1 Uni vers 0.005 % 1-25 GTT IN OU ity of ophthalmic 00:00: HS. [place] drops 00 Medical Branch latanoprost 2016-[address] 1 Uni vers 0.005 % 1-25 GTT IN OU ity of ophthalmic 00:00: HS. [place] drops Medical Branch latanoprost [address] 1 Uni vers 0.005 % 1-25 GTT IN OU ity of ophthalmic 00:00: HS. [place] drops 00 Medical Branch latanoprost 2016-[address] 1 Uni vers 0.005 % 1-25 GTT IN OU ity of ophthalmic 00:00: HS. [place] drops 00 Medical Branch latanoprost [address] 1 Uni vers 0.005 % 1-25 GTT IN OU ity of ophthalmic 00:00: HS. [place] drops 00 Medical Branch latanoprost [address] 1 Uni vers 0.005 % 1-25 GTT IN OU ity of ophthalmic 00:00: HS. [place] drops 00 Medical Branch latanoprost 2016-[address] 1 Uni vers 0.005 % 1-25 GTT IN OU ity of ophthalmic 00:00: HS. [place] drops 00 Medical Branch latanoprost 2016-[address] 1 Uni vers 0.005 % 1-25 GTT IN OU ity of ophthalmic 00:00: HS. [place] drops 00 Medical Branch latanoprost 2016-[address] 1 Uni vers 0.005 % 1-25 GTT IN OU ity of ophthalmic 00:00: HS. [place] drops 00 Medical Branch latanoprost [address] 1 Uni vers 0.005 % 1-25 GTT IN OU ity of ophthalmic 00:00: HS. [place] drops Medical Branch latanoprost 2016-[address] 1 Uni vers 0.005 % 1-25 GTT IN OU ity of ophthalmic 00:00: HS. [place] drops 00 Medical Branch latanoprost 2016-[address] 1 Uni vers 0.005 % 1-25 GTT IN OU ity of ophthalmic 00:00: HS. [place] drops Medical Branch latanoprost 2016-[address] 1 Uni vers 0.005 % 1-25 GTT IN OU ity of ophthalmic 00:00: HS. [place] drops Medical Branch latanoprost 2016-[address] 1 Uni vers 0.005 % 1-25 GTT IN OU ity of ophthalmic 00:00: HS. [place] drops Medical Branch latanoprost 2016-[address] 1 Uni vers 0.005 % 1-25 GTT IN OU ity of ophthalmic 00:00: HS. [place] drops Medical Branch latanoprost [address] 1 Uni vers 0.005 % 1-25 GTT IN OU ity of ophthalmic 00:00: HS. [place] drops Medical Branch latanoprost 2016-[address] 1 Uni vers 0.005 % 1-25 GTT IN OU ity of ophthalmic 00:00: HS. [place] drops Medical Branch latanoprost 2016-[address] 1 Uni vers 0.005 % 1-25 GTT IN OU ity of ophthalmic 00:00: HS. [place] drops Medical Branch latanoprost 2016-[address] 1 Uni vers 0.005 % 1-25 GTT IN OU ity of ophthalmic 00:00: HS. [place] drops Medical Branch latanoprost 2016-[address] 1 Uni vers 0.005 % 1-25 GTT IN OU ity of ophthalmic 00:00: HS. [place] drops Medical Branch latanoprost 2016-[address] 1 Uni vers 0.005 % 1-25 GTT IN OU ity of ophthalmic 00:00: HS. [place] drops 00 Medical Branch latanoprost 2016-[address] 1 Uni vers 0.005 % 1-25 GTT IN OU ity of ophthalmic 00:00: HS. [place] drops 00 Medical Branch latanoprost 2016-[address] 1 Uni vers 0.005 % 1-25 GTT IN OU ity of ophthalmic 00:00: HS. [place] drops 00 Medical Branch latanoprost [address] 1 Uni vers 0.005 % 1-25 GTT IN OU ity of ophthalmic 00:00: HS. [place] drops 00 Medical Branch latanoprost [address] 1 Uni vers 0.005 % 1-25 GTT IN OU ity of ophthalmic 00:00: HS. [place] drops Medical Branch latanoprost [address] 1 Uni vers 0.005 % 1-25 GTT IN OU ity of ophthalmic 00:00: HS. [place] drops 00 Medical Branch latanoprost 2016-[address] 1 Uni vers 0.005 % 1-25 GTT IN OU ity of ophthalmic 00:00: HS. [place] drops 00 Medical Branch latanoprost 2016-[address] 1 Uni vers 0.005 % 1-25 GTT IN OU ity of ophthalmic 00:00: HS. [place] drops 00 Medical Branch latanoprost 2016-[address] 1 Uni vers 0.005 % 1-25 GTT IN OU ity of ophthalmic 00:00: HS. [place] drops Medical Branch latanoprost 2016-[address] 1 Uni vers 0.005 % 1-25 GTT IN OU ity of ophthalmic 00:00: HS. [place] drops 00 Medical Branch latanoprost 2016-[address] 1 Uni vers 0.005 % 1-25 GTT IN OU ity of ophthalmic 00:00: HS. [place] drops 00 Medical Branch latanoprost 2016-[address] 1 Uni vers 0.005 % 1-25 GTT IN OU ity of ophthalmic 00:00: HS. [place] drops 00 Medical Branch latanoprost [address] 1 Uni vers 0.005 % 1-25 GTT IN OU ity of ophthalmic 00:00: HS. [place] drops 00 Medical Branch latanoprost 2016-[address] 1 Uni vers 0.005 % 1-25 GTT IN OU ity of ophthalmic 00:00: HS. [place] drops 00 Medical Branch latanoprost 2016-[address] 1 Uni vers 0.005 % 1-25 GTT IN OU ity of ophthalmic 00:00: HS. [place] drops 00 Medical Branch latanoprost 2016-[address] 1 Uni vers 0.005 % 1-25 GTT IN OU ity of ophthalmic 00:00: HS. [place] drops 00 Medical Branch latanoprost [address] 1 Uni vers 0.005 % 1-25 GTT IN OU ity of ophthalmic 00:00: HS. [place] drops 00 Medical Branch latanoprost 2016-[address] 1 Uni vers 0.005 % 1-25 GTT IN OU ity of ophthalmic 00:00: HS. [place] drops 00 Medical Branch latanoprost 2016-[address] 1 Uni vers 0.005 % 1-25 GTT IN OU ity of ophthalmic 00:00: HS. [place] drops Medical Branch latanoprost 2016-[address] 1 Uni vers 0.005 % 1-25 GTT IN OU ity of ophthalmic 00:00: HS. [place] drops Medical Branch latanoprost 2016-[address] 1 Uni vers 0.005 % 1-25 GTT IN OU ity of ophthalmic 00:00: HS. [place] drops 00 Medical Branch latanoprost 2016-[address] 1 Uni vers 0.005 % 1-25 GTT IN OU ity of ophthalmic 00:00: HS. [place] drops Medical Branch latanoprost 2016-[address] 1 Uni vers 0.005 % 1-25 GTT IN OU ity of ophthalmic 00:00: HS. [place] drops Medical Branch latanoprost 2016-[address] 1 Uni vers 0.005 % 1-25 GTT IN OU ity of ophthalmic 00:00: HS. [place] drops Medical Branch latanoprost 2016-[address] 1 Uni vers 0.005 % 1-25 GTT IN OU ity of ophthalmic 00:00: HS. [place] drops Medical Branch latanoprost [address] 1 Uni vers 0.005 % 1-25 GTT IN OU ity of ophthalmic 00:00: HS. [place] drops Medical Branch latanoprost 2016-[address] 1 Uni vers 0.005 % 1-25 GTT IN OU ity of ophthalmic 00:00: HS. [place] drops 00 Medical Branch latanoprost 2016-[address] 1 Uni vers 0.005 % 1-25 GTT IN OU ity of ophthalmic 00:00: HS. [place] drops 00 Medical Branch latanoprost 2016-[address] 1 Uni vers 0.005 % 1-25 GTT IN OU ity of ophthalmic 00:00: HS. [place] drops 00 Medical Branch latanoprost 2016-[address] 1 Uni vers 0.005 % 1-25 GTT IN OU ity of ophthalmic 00:00: HS. [place] drops 00 Medical Branch latanoprost [address] 1 Uni vers 0.005 % 1-25 GTT IN OU ity of ophthalmic 00:00: HS. [place] drops Medical Branch latanoprost 2016-[address] 1 Uni vers 0.005 % 1-25 GTT IN OU ity of ophthalmic 00:00: HS. [place] drops Medical Branch latanoprost [address] 1 Uni vers 0.005 % 1-25 GTT IN OU ity of ophthalmic 00:00: HS. [place] drops 00 Medical Branch latanoprost 2016-[address] 1 Uni vers 0.005 % 1-25 GTT IN OU ity of ophthalmic 00:00: HS. [place] drops Medical Branch latanoprost 2016-[address] 1 Uni vers 0.005 % 1-25 GTT IN OU ity of ophthalmic 00:00: HS. [place] drops Medical Branch latanoprost 2016-[address] 1 Uni vers 0.005 % 1-25 GTT IN OU ity of ophthalmic 00:00: HS. [place] drops Medical Branch latanoprost 2016-[address] 1 Uni vers 0.005 % 1-25 GTT IN OU ity of ophthalmic 00:00: HS. [place] drops Medical Branch latanoprost 2016-[address] 1 Uni vers 0.005 % 1-25 GTT IN OU ity of ophthalmic 00:00: HS. [place] drops 00 Medical Branch latanoprost 2016-[address] 1 Uni vers 0.005 % 1-25 GTT IN OU ity of ophthalmic 00:00: HS. [place] drops Medical Branch latanoprost [address] 1 Uni vers 0.005 % 1-25 GTT IN OU ity of ophthalmic 00:00: HS. [place] drops 00 Medical Branch latanoprost 2016-[address] 1 Uni vers 0.005 % 1-25 GTT IN OU ity of ophthalmic 00:00: HS. [place] drops 00 Medical Branch latanoprost 2016-[address] 1 Uni vers 0.005 % 1-25 GTT IN OU ity of ophthalmic 00:00: HS. [place] drops 00 Medical Branch latanoprost 2016-[address] 1 Uni vers 0.005 % 1-25 GTT IN OU ity of ophthalmic 00:00: HS. [place] drops 00 Medical Branch latanoprost 2016-[address] 1 Uni vers 0.005 % 1-25 GTT IN OU ity of ophthalmic 00:00: HS. [place] drops Medical Branch latanoprost 2016-[address] 1 Uni vers 0.005 % 1-25 GTT IN OU ity of ophthalmic 00:00: HS. [place] drops Medical Branch latanoprost 2016-[address] 1 Uni vers 0.005 % 1-25 GTT IN OU ity of ophthalmic 00:00: HS. [place] drops Medical Branch latanoprost 2016-[address] 1 Uni vers 0.005 % 1-25 GTT IN OU ity of ophthalmic 00:00: HS. [place] drops Medical Branch latanoprost 2016-[address] 1 Uni vers 0.005 % 1-25 GTT IN OU ity of ophthalmic 00:00: HS. [place] drops Medical Branch latanoprost 2016-[address] 1 Uni vers 0.005 % 1-25 GTT IN OU ity of ophthalmic 00:00: HS. [place] drops Medical Branch latanoprost 2016-[address] 1 Uni vers 0.005 % 1-25 GTT IN OU ity of ophthalmic 00:00: HS. [place] drops Medical Branch latanoprost 2016-[address] 1 Uni vers 0.005 % 1-25 GTT IN OU ity of ophthalmic 00:00: HS. [place] drops Medical Branch latanoprost 2016-[address] 1 Uni vers 0.005 % 1-25 GTT IN OU ity of ophthalmic 00:00: HS. [place] drops Medical Branch latanoprost 2016-[address] 1 Uni vers (XALATAN) 1-25 GTT IN OU ity o f 0.005% 00:00: HS. [place] ophthalmic 00 [facility]- No TK 1 C PO U nivers 40 mg 0-18 05-15 QD 30 MIN ity of capsule 00:00: 00:00 B [place] 00 :00 Medical Branch omeprazole 2016-11- No TK 1 C PO U nivers 40 mg 0-18 05-15 QD 30 MIN ity of capsule 00:00: 00:00 [place] 00 :00 [facility] spironolact 2016-11 Yes Univer s one 0-02 ity of (ALDACTONE) 00:00: [place] 25 mg 00 tablet [facility] spironolact 2016-11- No Unive rs one 25 mg 0-02 -18 ity of tablet 00:00: 00:00 [place] 00 :00 [facility] spironolact 2016-11- No Unive rs one 25 mg 0-02 -18 ity of tablet 00:00: 00:00 [place] 00 :00 [facility] Immunizations Ordered Filled Immunization Date Status Comments Sour e Immunization Name Name SARS-COV-2 COVID-19 2022-08-20 Completed Unive rsity of VACCINE 18 YRS+, 00:00:00 [place] Me dical BIVALENT 0.5ML, IM, Branc h (MODERNA BOOSTER) SARS-COV-2 COVID-19 2022-08-20 Completed Unive rsity of VACCINE 18 YRS+, 00:00:00 [place] Me dical BIVALENT 0.5ML, IM, Branc h (MODERNA BOOSTER) SARS-COV-2 COVID-19 2022-08-20 Completed Unive rsity of VACCINE 12 YRS+, 00:00:00 [place] Me dical BIVALENT 0.5ML, IM, Branc h (MODERNA BOOSTER) SARS-COV-2 COVID-19 2022-08-20 Completed Unive rsity of VACCINE 12 YRS+, 00:00:00 [place] Me dical BIVALENT 0.5ML, IM, Branc h (MODERNA BOOSTER) SARS-COV-2 COVID-19 2022-08-20 Completed Unive rsity of VACCINE 12 YRS+, 00:00:00 [place] Me dical BIVALENT 0.5ML, IM, Branc h (MODERNA BOOSTER) SARS-COV-2 COVID-19 2022-08-20 Completed Unive rsity of VACCINE 12 YRS+, 00:00:00 [place] Me dical BIVALENT 0.5ML, IM, Branc h (MODERNA BOOSTER) SARS-COV-2 COVID-19 2022-08-20 Completed Unive rsity of VACCINE 12 YRS+, 00:00:00 [place] Me dical BIVALENT 0.5ML, IM, Branc h (MODERNA BOOSTER) SARS-COV-2 COVID-19 2022-08-20 Completed Unive rsity of VACCINE 12 YRS+, 00:00:00 [place] Me dical BIVALENT 0.5ML, IM, Branc h (MODERNA BOOSTER) SARS-COV-2 COVID-19 2022-08-20 Completed Unive rsity of VACCINE 12 YRS+, 00:00:00 [place] Me dical BIVALENT 0.5ML, IM, Branc h (MODERNA BOOSTER) SARS-COV-2 COVID-19 2022-08-20 Completed Unive rsity of VACCINE 12 YRS+, 00:00:00 [place] Me dical BIVALENT 0.5ML, IM, Branc h (MODERNA BOOSTER) SARS-COV-2 COVID-19 2022-08-20 Completed Unive rsity of VACCINE 12 YRS+, 00:00:00 [place] Me dical BIVALENT 0.5ML, IM, Branc h (MODERNA BOOSTER) SARS-COV-2 COVID-19 2022-08-20 Completed Unive rsity of VACCINE 12 YRS+, 00:00:00 [place] Me dical BIVALENT 0.5ML, IM, Branc h (MODERNA BOOSTER) SARS-COV-2 COVID-19 2022-08-20 Completed Unive rsity of VACCINE 12 YRS+, 00:00:00 [place] Me dical BIVALENT 0.5ML, IM, Branc h (MODERNA BOOSTER) SARS-COV-2 COVID-19 2022-08-20 Completed Unive rsity of VACCINE 12 YRS+, 00:00:00 [place] Me dical BIVALENT 0.5ML, IM, Branc h (MODERNA BOOSTER) SARS-COV-2 COVID-19 2022-08-20 Completed Unive rsity of VACCINE 12 YRS+, 00:00:00 [place] Me dical BIVALENT 0.5ML, IM, Branc h (MODERNA BOOSTER) SARS-COV-2 COVID-19 2022-08-20 Completed Unive rsity of VACCINE 12 YRS+, 00:00:00 [place] Me dical BIVALENT 0.5ML, IM, Branc h (MODERNA BOOSTER) SARS-COV-2 COVID-19 2022-08-20 Completed Unive rsity of VACCINE 12 YRS+, 00:00:00 [place] Me dical BIVALENT 0.5ML, IM, Branc h (MODERNA BOOSTER) SARS-COV-2 COVID-19 2022-08-20 Completed Unive rsity of VACCINE 12 YRS+, 00:00:00 [place] Me dical BIVALENT 0.5ML, IM, Branc h (MODERNA BOOSTER) SARS-COV-2 COVID-19 2022-08-20 Completed Unive rsity of VACCINE 12 YRS+, 00:00:00 [place] Me dical BIVALENT 0.5ML, IM, Branc h (MODERNA BOOSTER) SARS-COV-2 COVID-19 2022-08-20 Completed Unive rsity of VACCINE 12 YRS+, 00:00:00 [place] Me dical BIVALENT 0.5ML, IM, Branc h (MODERNA BOOSTER) SARS-COV-2 COVID-19 2022-08-20 Completed Unive rsity of VACCINE 12 YRS+, 00:00:00 [place] Me dical BIVALENT 0.5ML, IM, Branc h (MODERNA BOOSTER) SARS-COV-2 COVID-19 2022-08-20 Completed Unive rsity of VACCINE 12 YRS+, 00:00:00 [place] Me dical BIVALENT 0.5ML, IM, Branc h (MODERNA BOOSTER) SARS-COV-2 COVID-19 2022-08-20 Completed Unive rsity of VACCINE 12 YRS+, 00:00:00 [place] Me dical BIVALENT 0.5ML, IM, Branc h (MODERNA BOOSTER) SARS-COV-2 COVID-19 2022-08-20 Completed Unive rsity of VACCINE 12 YRS+, 00:00:00 [place] Me dical BIVALENT 0.5ML, IM, Branc h (MODERNA BOOSTER) SARS-COV-2 COVID-19 2022-08-20 Completed Unive rsity of VACCINE 12 YRS+, 00:00:00 [place] Me dical BIVALENT 0.5ML, IM, Branc h (MODERNA BOOSTER) SARS-COV-2 COVID-19 2022-08-20 Completed Unive rsity of VACCINE 12 YRS+, 00:00:00 [place] Me dical BIVALENT 0.5ML, IM, Branc h (MODERNA BOOSTER) SARS-COV-2 COVID-19 2022-08-20 Completed Unive rsity of VACCINE 12 YRS+, 00:00:00 [place] Me dical BIVALENT 0.5ML, IM, Branc h (MODERNA BOOSTER) SARS-COV-2 COVID-19 2022-08-20 Completed Unive rsity of VACCINE 12 YRS+, 00:00:00 [place] Me dical BIVALENT 0.5ML, IM, Branc h (MODERNA BOOSTER) SARS-COV-2 COVID-19 2022-08-20 Completed Unive rsity of VACCINE 12 YRS+, 00:00:00 [place] Me dical BIVALENT 0.5ML, IM, Branc h (MODERNA BOOSTER) SARS-COV-2 COVID-19 2022-08-20 Completed Unive rsity of VACCINE 12 YRS+, 00:00:00 [place] Me dical BIVALENT 0.5ML, IM, Branc h (MODERNA BOOSTER) SARS-COV-2 COVID-19 2022-08-20 Completed Unive rsity of VACCINE 12 YRS+, 00:00:00 [place] Me dical BIVALENT 0.5ML, IM, Branc h (MODERNA BOOSTER) SARS-COV-2 COVID-19 2022-08-20 Completed Unive rsity of VACCINE 12 YRS+, 00:00:00 [place] Me dical BIVALENT 0.5ML, IM, Branc h (MODERNA BOOSTER) SARS-COV-2 COVID-19 2022-08-20 Completed Unive rsity of VACCINE 12 YRS+, 00:00:00 [place] Me dical BIVALENT 0.5ML, IM, Branc h (MODERNA BOOSTER) SARS-COV-2 COVID-19 2022-08-20 Completed Unive rsity of VACCINE 12 YRS+, 00:00:00 [place] Me dical BIVALENT 0.5ML, IM, Branc h (MODERNA BOOSTER) SARS-COV-2 COVID-19 2022-08-20 Completed Unive rsity of VACCINE 12 YRS+, 00:00:00 [place] Me dical BIVALENT 0.5ML, IM, Branc h (MODERNA BOOSTER) SARS-COV-2 COVID-19 2022-08-20 Completed Unive rsity of VACCINE 12 YRS+, 00:00:00 [place] Me dical BIVALENT 0.5ML, IM, Branc h (MODERNA BOOSTER) SARS-COV-2 COVID-19 2022-08-20 Completed Unive rsity of VACCINE 12 YRS+, 00:00:00 [place] Me dical BIVALENT 0.5ML, IM, Branc h (MODERNA BOOSTER) SARS-COV-2 COVID-19 2022-08-20 Completed [facility]ive rs[facility] of VACCINE 12 YRS+, 00:00:00 [place] [facility] BIVALENT 0.5ML, IM, Branc h (MODERNA BOOSTER) SARS-COV-2 COVID-19 2022-08-20 Completed [facility]ive rs[facility] of VACCINE 12 YRS+, 00:00:00 [place] [facility] BIVALENT 0.5ML, IM, Branc h (MODERNA BOOSTER) SARS-COV-2 COVID-19 2022-08-20 Completed [facility]ive [facility] of VACCINE 12 YRS+, 00:00:00 [place] [facility] BIVALENT 0.5ML, IM, Branc h (MODERNA BOOSTER) SARS-COV-2 COVID-19 2022-08-20 Completed Unive rs[facility] of VACCINE 12 YRS+, 00:00:00 [place] [facility] BIVALENT 0.5ML, IM, Branc h (MODERNA BOOSTER) SARS-COV-2 COVID-19 2022-08-20 Completed [facility]ive rs[facility] of VACCINE 12 YRS+, 00:00:00 [place] [facility] BIVALENT 0.5ML, IM, Branc h (MODERNA BOOSTER) SARS-COV-2 COVID-19 2022-08-20 Completed [facility]ive rs[facility] of VACCINE 12 YRS+, 00:00:00 [place] [facility] BIVALENT 0.5ML, IM, Branc h (MODERNA BOOSTER) SARS-COV-2 COVID-19 2022-08-20 Completed [facility] VACCINE [facility] YRS+, 00:00:00 [place] [facility] BIVALENT 0.5ML, IM, Branc h (MODERNA BOOSTER) SARS-COV-2 COVID-19 2022-08-20 Completed [facility] of VACCINE 12 YRS+, 00:00:00 [place] [facility] BIVALENT 0.5ML, IM, Branc h (MODERNA BOOSTER) SARS-COV-2 COVID-19 2022-08-20 Completed [facility] of VACCINE 12 YRS+, 00:00:00 [place] [facility] BIVALENT 0.5ML, IM, Branc h (MODERNA BOOSTER) SARS-COV-2 COVID-19 2022-08-20 Completed [facility] of VACCINE 12 YRS+, 00:00:00 [place] [facility] BIVALENT 0.5ML, IM, Branc h (MODERNA BOOSTER) SARS-COV-2 COVID-19 2022-08-20 Completed [facility] of VACCINE 12 YRS+, 00:00:00 [place] [facility] BIVALENT 0.5ML, IM, Branc h (MODERNA BOOSTER) SARS-COV-2 COVID-19 2022-08-20 Completed [facility] of VACCINE 12 YRS+, 00:00:00 [place] [facility] BIVALENT 0.5ML, IM, Branc h (MODERNA BOOSTER) SARS-COV-2 COVID-19 2022-08-20 Completed [facility] of VACCINE 12 YRS+, 00:00:00 [place] [facility] BIVALENT 0.5ML, IM, Branc h (MODERNA BOOSTER) SARS-COV-2 COVID-19 2022-08-20 Completed [facility] of VACCINE 12 YRS+, 00:00:00 [place] [facility] BIVALENT 0.5ML, IM, Branc h (MODERNA BOOSTER) SARS-COV-2 COVID-19 2022-08-20 Completed [facility] of VACCINE 12 YRS+, 00:00:00 [place] [facility] BIVALENT 0.5ML, IM, Branc h (MODERNA BOOSTER) SARS-COV-2 COVID-19 2022-08-20 Completed [facility] of VACCINE 12 YRS+, 00:00:00 [place] [facility] BIVALENT 0.5ML, IM, Branc h (MODERNA BOOSTER) SARS-COV-2 COVID-19 2022-08-20 Completed [facility] of VACCINE 12 YRS+, 00:00:00 [place] [facility] BIVALENT 0.5ML, IM, Branc h (MODERNA BOOSTER) SARS-COV-2 COVID-19 2022-08-20 Completed [facility] of VACCINE 12 YRS+, 00:00:00 [place] [facility] BIVALENT 0.5ML, IM, Branc h (MODERNA BOOSTER) SARS-COV-2 COVID-19 2022-08-20 Completed [facility] of VACCINE 12 YRS+, 00:00:00 [place] [facility] BIVALENT 0.5ML, IM, Branc h (MODERNA BOOSTER) SARS-COV-2 COVID-19 2022-08-20 Completed [facility] of VACCINE 12 YRS+, 00:00:00 [place] [facility] BIVALENT 0.5ML, IM, Branc h (MODERNA BOOSTER) SARS-COV-2 COVID-19 2022-08-20 Completed [facility] of VACCINE 12 YRS+, 00:00:00 [place] [facility] BIVALENT 0.5ML, IM, Branc h (MODERNA BOOSTER) SARS-COV-2 COVID-19 2022-08-20 Completed [facility] of VACCINE 12 YRS+, 00:00:00 [place] [facility] BIVALENT 0.5ML, IM, Branc h (MODERNA BOOSTER) SARS-COV-2 COVID-19 2022-08-20 Completed [facility] of VACCINE 12 YRS+, 00:00:00 [place] [facility] BIVALENT 0.5ML, IM, Branc h (MODERNA BOOSTER) SARS-COV-2 COVID-19 2022-08-20 Completed [facility] of VACCINE 12 YRS+, 00:00:00 [place] [facility] BIVALENT 0.5ML, IM, Branc h (MODERNA BOOSTER) SARS-COV-2 COVID-19 2022-08-20 Completed [facility] of VACCINE 12 YRS+, 00:00:00 [place] [facility] BIVALENT 0.5ML, IM, Branc h (MODERNA BOOSTER) SARS-COV-2 COVID-19 2022-08-20 Completed [facility] of VACCINE 12 YRS+, 00:00:00 [place] [facility] BIVALENT 0.5ML, IM, Branc h (MODERNA BOOSTER) SARS-COV-2 COVID-19 2022-08-20 Completed [facility] of VACCINE 12 YRS+, 00:00:00 [place] [facility] BIVALENT 0.5ML, IM, Branc h (MODERNA BOOSTER) SARS-COV-2 COVID-19 2022-08-20 Completed [facility] of VACCINE 12 YRS+, 00:00:00 [place] [facility] BIVALENT 0.5ML, IM, Branc h (MODERNA BOOSTER) SARS-COV-2 COVID-19 2022-08-20 Completed [facility] of VACCINE 12 YRS+, 00:00:00 [place] [facility] BIVALENT 0.5ML, IM, Branc h (MODERNA BOOSTER) SARS-COV-2 COVID-19 2022-08-20 Completed [facility] of VACCINE 12 YRS+, 00:00:00 [place] [facility] BIVALENT 0.5ML, IM, Branc h (MODERNA) SARS-COV-2 COVID-19 2022-08-20 Completed [facility] of VACCINE 12 YRS+, 00:00:00 [place] [facility] BIVALENT 0.5ML, IM, Branc h (MODERNA) SARS-COV-2 COVID-19 2022-08-20 Completed [facility] of VACCINE 12 YRS+, 00:00:00 [place] [facility] BIVALENT 0.5ML, IM, Branc h (MODERNA) SARS-COV-2 COVID-19 2022-08-20 Completed [facility] of VACCINE 12 YRS+, 00:00:00 [place] [facility] BIVALENT 0.5ML, IM, Branc h (MODERNA) SARS-COV-2 COVID-19 2022-08-20 Completed [facility] of VACCINE 12 YRS+, 00:00:00 [place] [facility] BIVALENT 0.5ML, IM, Branc h (MODERNA) SARS-COV-2 COVID-19 2022-08-20 Completed [facility] of VACCINE 12 YRS+, 00:00:00 [place] [facility] BIVALENT 0.5ML, IM, Branc h (MODERNA) SARS-COV-2 COVID-19 2022-08-20 Completed [facility] of VACCINE 12 YRS+, 00:00:00 [place] [facility] BIVALENT 0.5ML, IM, Branc h (MODERNA) SARS-COV-2 COVID-19 2022-08-20 Completed [facility] of VACCINE 12 YRS+, 00:00:00 [place] [facility] BIVALENT 0.5ML, IM, Branc h (MODERNA) SARS-COV-2 COVID-19 2022-08-20 Completed [facility] of VACCINE 12 YRS+, 00:00:00 [place] [facility] BIVALENT 0.5ML, IM, Branc h (MODERNA-BLUE TOP) SARS-COV-2 COVID-19 2022-08-20 Completed [facility] of VACCINE 12 YRS+, 00:00:00 [place] [facility] BIVALENT 0.5ML, IM, Branc h (MODERNA-BLUE TOP) SARS-COV-2 COVID-19 2022-08-20 Completed [facility] of VACCINE 12 YRS+, 00:00:00 [place] [facility] BIVALENT 0.5ML, IM, Branc h (MODERNA-BLUE TOP) SARS-COV-2 COVID-19 2022-08-20 Completed [facility] of VACCINE 12 YRS+, 00:00:00 [place] [facility] BIVALENT 0.5ML, IM, Branc h (MODERNA-BLUE TOP) SARS-COV-2 COVID-19 2022-08-20 Completed [facility] of VACCINE 12 YRS+, 00:00:00 [place] [facility] BIVALENT 0.5ML, IM, Branc h (MODERNA-BLUE TOP) SARS-COV-2 COVID-19 2022-08-20 Completed [facility] of VACCINE 12 YRS+, 00:00:00 [place] [facility] BIVALENT 0.5ML, IM, Branc h (MODERNA-BLUE TOP) SARS-COV-2 COVID-19 2022-08-20 Completed [facility] of VACCINE 12 YRS+, 00:00:00 [place] [facility] BIVALENT 0.5ML, IM, Branc h (MODERNA-BLUE TOP) SARS-COV-2 COVID-19 2022-08-20 Completed [facility] of VACCINE 12 YRS+, 00:00:00 [place] [facility] BIVALENT 0.5ML, IM, Branc h (MODERNA-BLUE TOP) SARS-COV-2 COVID-19 2022-08-20 Completed [facility] of VACCINE 12 YRS+, 00:00:00 [place] [facility] BIVALENT 0.5ML, IM, Branc h (MODERNA-BLUE TOP) SARS-COV-2 COVID-19 2022-08-20 Completed [facility] of VACCINE 12 YRS+, 00:00:00 [place] [facility] BIVALENT 0.5ML, IM, Branc h (MODERNA-BLUE TOP) SARS-COV-2 COVID-19 2022-08-20 Completed [facility] of VACCINE 12 YRS+, 00:00:00 [place] [facility] BIVALENT 0.5ML, IM, Branc h (MODERNA-BLUE TOP) SARS-COV-2 COVID-19 2022-08-20 Completed [facility] of VACCINE 12 YRS+, 00:00:00 [place] [facility] BIVALENT 0.5ML, IM, Branc h (MODERNA-BLUE TOP) SARS-COV-2 COVID-19 2022-08-20 Completed [facility] of VACCINE 12 YRS+, 00:00:00 [place] [facility] BIVALENT 0.5ML, IM, Branc h (MODERNA-BLUE TOP) SARS-COV-2 COVID-19 2022-08-20 Completed [facility] of VACCINE 12 YRS+, 00:00:00 [place] [facility] BIVALENT 0.5ML, IM, Branc h (MODERNA-BLUE TOP) SARS-COV-2 COVID-19 2022-08-20 Completed [facility] of VACCINE 12 YRS+, 00:00:00 [place] [facility] BIVALENT 0.5ML, IM, Branc h (MODERNA-BLUE TOP) SARS-COV-2 COVID-19 2022-08-20 Completed [facility] of VACCINE 12 YRS+, 00:00:00 [place] [facility] BIVALENT 0.5ML, IM, Branc h (MODERNA-BLUE TOP) SARS-COV-2 COVID-19 2022-08-20 Completed [facility] of VACCINE 12 YRS+, 00:00:00 [place] [facility] BIVALENT 0.5ML, IM, Branc h (MODERNA-BLUE TOP) SARS-COV-2 COVID-19 2022-08-20 Completed [facility] of VACCINE 12 YRS+, 00:00:00 [place] [facility] BIVALENT 0.5ML, IM, Branc h (MODERNA-BLUE TOP) SARS-COV-2 COVID-19 2022-08-20 Completed [facility] of VACCINE 12 YRS+, 00:00:00 [place] [facility] BIVALENT 0.5ML, IM, Branc h (MODERNA-BLUE TOP) SARS-COV-2 COVID-19 2022-08-20 Completed [facility] of VACCINE 12 YRS+, 00:00:00 [place] [facility] BIVALENT 0.5ML, IM, Branc h (MODERNA-BLUE TOP) SARS-COV-2 COVID-19 2022-08-20 Completed [facility] of VACCINE 12 YRS+, 00:00:00 [place] [facility] BIVALENT 0.5ML, IM, Branc h (MODERNA-BLUE TOP) SARS-COV-2 COVID-19 2022-08-20 Completed [facility] of VACCINE 12 YRS+, 00:00:00 [place] [facility] BIVALENT 0.5ML, IM, Branc h (MODERNA-BLUE TOP) SARS-COV-2 COVID-19 2022-08-20 Completed [facility] of VACCINE 12 YRS+, 00:00:00 [place] [facility] BIVALENT 0.5ML, IM, Branc h (MODERNA-BLUE TOP) SARS-COV-2 COVID-19 2022-08-20 Completed [facility] of VACCINE 12 YRS+, 00:00:00 [place] [facility] BIVALENT 0.5ML, IM, Branc h (MODERNA-BLUE TOP) SARS-COV-2 COVID-19 2022-08-20 Completed [facility] of VACCINE 12 YRS+, 00:00:00 [place] [facility] BIVALENT 0.5ML, IM, Branc h (MODERNA-BLUE TOP) SARS-COV-2 COVID-19 2022-08-20 Completed [facility] of VACCINE 12 YRS+, 00:00:00 [place] [facility] BIVALENT 0.5ML, IM, Branc h (MODERNA-BLUE TOP) SARS-COV-2 COVID-19 2022-08-20 Completed [facility] of VACCINE 12 YRS+, 00:00:00 [place] [facility] BIVALENT 0.5ML, IM, Branc h (MODERNA-BLUE TOP) SARS-COV-2 COVID-19 2022-08-20 Completed [facility] of VACCINE 12 YRS+, 00:00:00 [place] [facility] BIVALENT 0.5ML, IM, Branc h (MODERNA-BLUE TOP) SARS-COV-2 COVID-19 2022-02-25 Completed [facility] of MODERNA 0.25ML 00:00:00 [place] [facility] BOOST[facility] VACCINE Branch SARS-COV-2 COVID-19 2022-02-25 Completed [facility] of MODERNA 0.25ML 00:00:00 [place] [facility] BOOSTER VACCINE Branch SARS-COV-2 COVID-19 2022-02-25 Completed [facility] of MODERNA 0.25ML 00:00:00 [place] [facility] BOOSTER VACCINE Branch SARS-COV-2 COVID-19 2022-02-25 Completed [facility] of MODERNA 0.25ML 00:00:00 [place] [facility] BOOSTER VACCINE Branch SARS-COV-2 COVID-19 2022-02-25 Completed [facility] of MODERNA 0.25ML 00:00:00 [place] [facility] BOOSTER VACCINE Branch SARS-COV-2 COVID-19 2022-02-25 Completed [facility] of MODERNA 0.25ML 00:00:00 [place] [facility] BOOSTER VACCINE Branch SARS-COV-2 COVID-19 2022-02-25 Completed [facility] of MODERNA 0.25ML 00:00:00 [place] [facility] BOOSTER VACCINE Branch SARS-COV-2 COVID-19 2022-02-25 Completed [facility] of MODERNA 0.25ML 00:00:00 [place] [facility] BOOSTER VACCINE Branch SARS-COV-2 COVID-19 2022-02-25 Completed [facility] of MODERNA 0.25ML 00:00:00 [place] [facility] BOOSTER VACCINE Branch SARS-COV-2 COVID-19 2022-02-25 Completed [facility] of MODERNA 0.25ML 00:00:00 [place] [facility] BOOSTER VACCINE Branch SARS-COV-2 COVID-19 2022-02-25 Completed [facility] of MODERNA 0.25ML 00:00:00 [place] [facility] BOOSTER VACCINE Branch SARS-COV-2 COVID-19 2022-02-25 Completed [facility] of MODERNA 0.25ML 00:00:00 [place] [facility] BOOSTER VACCINE Branch SARS-COV-2 COVID-19 2022-02-25 Completed [facility] of MODERNA 0.25ML 00:00:00 [place] [facility] BOOSTER VACCINE Branch SARS-COV-2 COVID-19 2022-02-25 Completed [facility] of MODERNA 0.25ML 00:00:00 [place] [facility] BOOSTER VACCINE Branch SARS-COV-2 COVID-19 2022-02-25 Completed [facility] of MODERNA 0.25ML 00:00:00 [place] [facility] BOOSTER VACCINE Branch SARS-COV-2 COVID-19 2022-02-25 Completed [facility] of MODERNA 0.25ML 00:00:00 [place] [facility] BOOSTER VACCINE Branch SARS-COV-2 COVID-19 2022-02-25 Completed [facility] of MODERNA 0.25ML 00:00:00 [place] [facility] BOOSTER VACCINE Branch SARS-COV-2 COVID-19 2022-02-25 Completed [facility] of MODERNA 0.25ML 00:00:00 [place] [facility] BOOSTER VACCINE Branch SARS-COV-2 COVID-19 2022-02-25 Completed [facility] of MODERNA 0.25ML 00:00:00 [place] [facility] BOOSTER VACCINE Branch SARS-COV-2 COVID-19 2022-02-25 Completed [facility] of MODERNA 0.25ML 00:00:00 [place] [facility] BOOSTER VACCINE Branch SARS-COV-2 COVID-19 2022-02-25 Completed [facility] of MODERNA 0.25ML 00:00:00 [place] [facility] BOOSTER VACCINE Branch SARS-COV-2 COVID-19 2022-02-25 Completed [facility] of MODERNA 0.25ML 00:00:00 [place] [facility] BOOSTER VACCINE Branch SARS-COV-2 COVID-19 2022-02-25 Completed [facility] of MODERNA 0.25ML 00:00:00 [place] [facility] BOOSTER VACCINE Branch SARS-COV-2 COVID-19 2022-02-25 Completed [facility] of MODERNA 0.25ML 00:00:00 [place] [facility] BOOSTER VACCINE Branch SARS-COV-2 COVID-19 2022-02-25 Completed [facility] of MODERNA 0.25ML 00:00:00 [place] [facility] BOOSTER VACCINE Branch SARS-COV-2 COVID-19 2022-02-25 Completed [facility] of MODERNA 0.25ML 00:00:00 [place] [facility] BOOSTER VACCINE Branch SARS-COV-2 COVID-19 2022-02-25 Completed [facility] of MODERNA 0.25ML 00:00:00 [place] [facility] BOOSTER VACCINE Branch SARS-COV-2 COVID-19 2022-02-25 Completed [facility] of MODERNA 0.25ML 00:00:00 [place] [facility] BOOSTER VACCINE Branch SARS-COV-2 COVID-19 2022-02-25 Completed [facility] of MODERNA 0.25ML 00:00:00 [place] [facility] BOOSTER VACCINE Branch SARS-COV-2 COVID-19 2022-02-25 Completed [facility] of MODERNA 0.25ML 00:00:00 [place] [facility] BOOSTER VACCINE Branch SARS-COV-2 COVID-19 2022-02-25 Completed [facility] of MODERNA 0.25ML 00:00:00 [place] [facility] BOOSTER VACCINE Branch SARS-COV-2 COVID-19 2022-02-25 Completed [facility] of MODERNA 0.25ML 00:00:00 [place] [facility] BOOSTER VACCINE Branch SARS-COV-2 COVID-19 2022-02-25 Completed [facility] of MODERNA 0.25ML 00:00:00 [place] [facility] BOOSTER VACCINE Branch SARS-COV-2 COVID-19 2022-02-25 Completed [facility] of MODERNA 0.25ML 00:00:00 [place] [facility] BOOSTER VACCINE Branch SARS-COV-2 COVID-19 2022-02-25 Completed [facility] of MODERNA 0.25ML 00:00:00 [place] [facility] BOOSTER VACCINE Branch SARS-COV-2 COVID-19 2022-02-25 Completed [facility] of MODERNA 0.25ML 00:00:00 [place] [facility] BOOSTER VACCINE Branch SARS-COV-2 COVID-19 2022-02-25 Completed [facility] of MODERNA 0.25ML 00:00:00 [place] [facility] BOOSTER VACCINE Branch SARS-COV-2 COVID-19 2022-02-25 Completed [facility] of MODERNA 0.25ML 00:00:00 [place] [facility] BOOSTER VACCINE Branch SARS-COV-2 COVID-19 2022-02-25 Completed [facility] of MODERNA 0.25ML 00:00:00 [place] [facility] BOOSTER VACCINE Branch SARS-COV-2 COVID-19 2022-02-25 Completed [facility] of MODERNA 0.25ML 00:00:00 [place] [facility] BOOSTER VACCINE Branch SARS-COV-2 COVID-19 2022-02-25 Completed [facility] of MODERNA 0.25ML 00:00:00 [place] [facility] BOOSTER VACCINE Branch SARS-COV-2 COVID-19 2022-02-25 Completed [facility] of MODERNA 0.25ML 00:00:00 [place] [facility] BOOSTER VACCINE Branch SARS-COV-2 COVID-19 2022-02-25 Completed [facility] of MODERNA 0.25ML 00:00:00 [place] [facility] BOOSTER VACCINE Branch SARS-COV-2 COVID-19 2022-02-25 Completed [facility] of MODERNA 0.25ML 00:00:00 [place] [facility] BOOSTER VACCINE Branch SARS-COV-2 COVID-19 2022-02-25 Completed [facility] of MODERNA 0.25ML 00:00:00 [place] [facility] BOOSTER VACCINE Branch SARS-COV-2 COVID-19 2022-02-25 Completed [facility] rs[facility] of MODERNA 0.25ML 00:00:00 [place] [facility] BOOSTER VACCINE Branch SARS-COV-2 COVID-19 2022-02-25 Completed [facility] of MODERNA 0.25ML 00:00:00 [place] [facility] BOOSTER VACCINE Branch SARS-COV-2 COVID-19 2022-02-25 Completed [facility] of MODERNA 0.25ML 00:00:00 [place] [facility] BOOSTER VACCINE Branch SARS-COV-2 COVID-19 2022-02-25 Completed [facility] of MODERNA 0.25ML 00:00:00 [place] [facility] BOOSTER VACCINE Branch SARS-COV-2 COVID-19 2022-02-25 Completed [facility] of MODERNA 0.25ML 00:00:00 [place] [facility] BOOSTER VACCINE Branch SARS-COV-2 COVID-19 2022-02-25 Completed [facility] of MODERNA 0.25ML 00:00:00 [place] [facility] BOOSTER VACCINE Branch SARS-COV-2 COVID-19 2022-02-25 Completed [facility] of MODERNA 0.25ML 00:00:00 [place] [facility] BOOSTER VACCINE Branch SARS-COV-2 COVID-19 2022-02-25 Completed [facility] of MODERNA 0.25ML 00:00:00 [place] [facility] BOOSTER VACCINE Branch SARS-COV-2 COVID-19 2022-02-25 Completed [facility] rs[facility] of MODERNA 0.25ML 00:00:00 [place] [facility] BOOSTER VACCINE Branch SARS-COV-2 COVID-19 2022-02-25 Completed [facility] of MODERNA 0.25ML 00:00:00 [place] [facility] BOOSTER VACCINE Branch SARS-COV-2 COVID-19 2022-02-25 Completed [facility] of MODERNA 0.25ML 00:00:00 [place] [facility] BOOSTER VACCINE Branch SARS-COV-2 COVID-19 2022-02-25 Completed [facility] of MODERNA 0.25ML 00:00:00 [place] [facility] BOOSTER VACCINE Branch SARS-COV-2 COVID-19 2022-02-25 Completed [facility] of MODERNA 0.25ML 00:00:00 [place] [facility] BOOSTER VACCINE Branch SARS-COV-2 COVID-19 2022-02-25 Completed [facility] of MODERNA 0.25ML 00:00:00 [place] [facility] BOOSTER VACCINE Branch SARS-COV-2 COVID-19 2022-02-25 Completed [facility] of MODERNA 0.25ML 00:00:00 [place] [facility] BOOSTER VACCINE Branch SARS-COV-2 COVID-19 2022-02-25 Completed [facility] of MODERNA 0.25ML 00:00:00 [place] [facility] BOOSTER VACCINE Branch SARS-COV-2 COVID-19 2022-02-25 Completed [facility] of MODERNA 0.25ML 00:00:00 [place] [facility] BOOSTER VACCINE Branch SARS-COV-2 COVID-19 2022-02-25 Completed [facility] of MODERNA 0.25ML 00:00:00 [place] [facility] BOOSTER VACCINE Branch SARS-COV-2 COVID-19 2022-02-25 Completed [facility] of MODERNA 0.25ML 00:00:00 [place] [facility] BOOSTER VACCINE Branch SARS-COV-2 COVID-19 2022-02-25 Completed [facility] of MODERNA 0.25ML 00:00:00 [place] [facility] BOOSTER VACCINE Branch SARS-COV-2 COVID-19 2022-02-25 Completed [facility] of MODERNA 0.25ML 00:00:00 [place] [facility] BOOSTER VACCINE Branch SARS-COV-2 COVID-19 2022-02-25 Completed [facility] rs[facility] of MODERNA 0.25ML 00:00:00 [place] [facility] BOOSTER VACCINE Branch SARS-COV-2 COVID-19 2022-02-25 Completed [facility] of MODERNA 0.25ML 00:00:00 [place] [facility] BOOSTER VACCINE Branch SARS-COV-2 COVID-19 2022-02-25 Completed [facility] rs[facility] of MODERNA 0.25ML 00:00:00 [place] [facility] BOOSTER VACCINE Branch SARS-COV-2 COVID-19 2022-02-25 Completed [facility] of MODERNA 0.25ML 00:00:00 [place] [facility] BOOSTER VACCINE Branch SARS-COV-2 COVID-19 2022-02-25 Completed [facility] rs[facility] of MODERNA 0.25ML 00:00:00 [place] [facility] BOOSTER VACCINE Branch SARS-COV-2 COVID-19 2022-02-25 Completed [facility] rs[facility] of MODERNA 0.25ML 00:00:00 [place] [facility] BOOSTER VACCINE Branch SARS-COV-2 COVID-19 2022-02-25 Completed [facility] of MODERNA 0.25ML 00:00:00 [place] [facility] BOOSTER VACCINE Branch SARS-COV-2 COVID-19 2022-02-25 Completed [facility]ive rs[facility] of MODERNA 0.25ML 00:00:00 [place] [facility] BOOSTER VACCINE Branch SARS-COV-2 COVID-19 2022-02-25 Completed [facility] rs[facility] of MODERNA 0.25ML 00:00:00 [place] [facility] BOOSTER VACCINE Branch SARS-COV-2 COVID-19 2022-02-25 Completed [facility] rs[facility] of MODERNA 0.25ML 00:00:00 [place] [facility] BOOSTER VACCINE Branch SARS-COV-2 COVID-19 2022-02-25 Completed [facility]ive rs[facility] of MODERNA 0.25ML 00:00:00 [place] [facility] BOOSTER VACCINE Branch SARS-COV-2 COVID-19 2022-02-25 Completed [facility] of MODERNA 0.25ML 00:00:00 [place] [facility] BOOSTER VACCINE Branch SARS-COV-2 COVID-19 2022-02-25 Completed [facility] rs[facility] of MODERNA 0.25ML 00:00:00 [place] [facility] BOOSTER VACCINE Branch SARS-COV-2 COVID-19 2022-02-25 Completed [facility] rs[facility] of MODERNA 0.25ML 00:00:00 [place] [facility] BOOSTER VACCINE Branch SARS-COV-2 COVID-19 2022-02-25 Completed [facility] rs[facility] of MODERNA 0.25ML 00:00:00 [place] [facility] BOOSTER VACCINE Branch SARS-COV-2 COVID-19 2022-02-25 Completed [facility] rs[facility] of MODERNA 0.25ML 00:00:00 [place] [facility] BOOSTER VACCINE Branch SARS-COV-2 COVID-19 2022-02-25 Completed [facility]ive rs[facility] of MODERNA 0.25ML 00:00:00 [place] [facility] BOOSTER VACCINE Branch SARS-COV-2 COVID-19 2022-02-25 Completed [facility] rs[facility] of MODERNA 0.25ML 00:00:00 [place] [facility] BOOSTER VACCINE Branch SARS-COV-2 COVID-19 2022-02-25 Completed [facility] rs[facility] of MODERNA 0.25ML 00:00:00 [place] [facility] BOOSTER VACCINE Branch SARS-COV-2 COVID-19 2022-02-25 Completed [facility]ive rs[facility] of MODERNA 0.25ML 00:00:00 [place] [facility] BOOSTER VACCINE Branch SARS-COV-2 COVID-19 2022-02-25 Completed Unive rs[facility] of MODERNA 0.25ML 00:00:00 [place] [facility] BOOSTER VACCINE Branch SARS-COV-2 COVID-19 2022-02-25 Completed Unive rs[facility] of MODERNA 0.25ML 00:00:00 [place] [facility] BOOSTER VACCINE Branch SARS-COV-2 COVID-19 2022-02-25 Completed Unive rs[facility] of MODERNA 0.25ML 00:00:00 [place] [facility] BOOSTER VACCINE Branch SARS-COV-2 COVID-19 2022-02-25 Completed Unive rs[facility] of MODERNA 0.25ML 00:00:00 [place] [facility] BOOSTER VACCINE Branch SARS-COV-2 COVID-19 2022-02-25 Completed Unive rs[facility] of MODERNA 0.25ML 00:00:00 [place] [facility] BOOSTER VACCINE Branch SARS-COV-2 COVID-19 2022-02-25 Completed Unive rs[facility] of MODERNA 0.25ML 00:00:00 [place] [facility] BOOSTER VACCINE Branch SARS-COV-2 COVID-19 2022-02-25 Completed Un[facility] rs[facility] of MODERNA 0.25ML 00:00:00 [place] [facility] BOOSTER VACCINE Branch SARS-COV-2 COVID-19 2022-02-25 Completed Unive rs[facility] of MODERNA 0.25ML 00:00:00 [place] [facility] BOOSTER VACCINE Branch SARS-COV-2 COVID-19 2022-02-25 Completed [facility]ive rs[facility] of MODERNA 0.25ML 00:00:00 [place] [facility] BOOSTER VACCINE Branch SARS-COV-2 COVID-19 2022-02-25 Completed Unive rs[facility] of MODERNA 0.25ML 00:00:00 [place] [facility] BOOSTER VACCINE Branch SARS-COV-2 COVID-19 2022-02-25 Completed [facility] rs[facility] of MODERNA 0.25ML 00:00:00 [place] [facility] BOOSTER VACCINE Branch SARS-COV-2 COVID-19 2022-02-25 Completed Unive rsity of MODERNA 0.25ML 00:00:00 [place] [facility] BOOSTER VACCINE Branch SARS-COV-2 COVID-19 2022-02-25 Completed Un[facility] rs[facility] of MODERNA 0.25ML 00:00:00 [place] [facility] BOOSTER VACCINE Branch SARS-COV-2 COVID-19 2022-02-25 Completed Unive rs[facility] of MODERNA 0.25ML 00:00:00 [place] [facility] BOOSTER VACCINE Branch SARS-COV-2 COVID-19 2022-02-25 Completed Unive rs[facility] of MODERNA 0.25ML 00:00:00 [place] [facility] BOOSTER VACCINE Branch SARS-COV-2 COVID-19 2022-02-25 Completed [facility] MODERNA 0.25ML 00:00:00 [place] [facility] VACCINE [facility] SARS-COV-2 COVID-19 2022-02-25 Completed [facility] of MODERNA 0.25ML 00:00:00 [place] [facility] VACCINE [facility] SARS-COV-2 COVID-19 2022-02-25 Completed [facility] MODERNA 0.25ML 00:00:00 [place] [facility] BOOST[facility] VACCINE [facility] SARS-COV-2 COVID-19 2022-02-25 Completed [facility] of MODERNA 0.25ML 00:00:00 [place] [facility] BOOST[facility] VACCINE [facility] SARS-COV-2 COVID-19 2022-02-25 Completed [facility] of MODERNA 0.25ML 00:00:00 [place] [facility] BOOSTER VACCINE [facility] SARS-COV-2 COVID-19 2022-02-25 Completed [facility] of MODERNA 0.25ML 00:00:00 [place] [facility] BOOST[facility] VACCINE [facility] SARS-COV-2 COVID-19 2022-02-25 Completed [facility] of MODERNA 0.25ML 00:00:00 [place] [facility] BOOSTER VACCINE [facility] SARS-COV-2 COVID-19 2022-02-25 Completed [facility] of MODERNA 0.25ML 00:00:00 [place] [facility] BOOSTER VACCINE [facility] SARS-COV-2 COVID-19 2022-02-25 Completed [facility] of MODERNA 0.25ML 00:00:00 [facility] BOOSTER VACCINE Branch SARS-COV-2 COVID-19 2022-02-25 Completed [facility] of MODERNA 0.25ML 00:00:00 [facility] keily BOOSTER VACCINE Branch Pneumococcal 13 2021-11-02 Completed [facility]it y of Conjugate, PCV13 00:00:00 [place] [facility] (Prevnar 13) Branch Pneumococcal 13 2021-11-02 Completed [facility] of Conjugate, PCV13 00:00:00 [place] [facility] (Prevnar 13) Branch Pneumococcal 13 2021-11-02 Completed [facility] of Conjugate, PCV13 00:00:00 [place] [facility] (Prevnar 13) Branch Pneumococcal 13 2021-11-02 Completed [facility] of Conjugate, PCV13 00:00:00 [place] [facility] (Prevnar 13) Branch Pneumococcal 13 2021-11-02 Completed [facility] of Conjugate, PCV13 00:00:00 [place] [facility] (Prevnar 13) Branch Pneumococcal 13 2021-11-02 Completed [facility] of Conjugate, PCV13 00:00:00 [place] [facility] (Prevnar 13) Branch Pneumococcal 13 2021-11-02 Completed [facility] of Conjugate, PCV13 00:00:00 [place] [facility] (Prevnar 13) Branch Pneumococcal 13 2021-11-02 Completed [facility] of Conjugate, PCV13 00:00:00 [place] [facility] (Prevnar 13) Branch Pneumococcal 13 2021-11-02 Completed [facility] of Conjugate, PCV13 00:00:00 [place] [facility] (Prevnar 13) Branch Pneumococcal 13 2021-11-02 Completed [facility] of Conjugate, PCV13 00:00:00 [place] [facility] (Prevnar 13) Branch Pneumococcal 13 2021-11-02 Completed [facility] of Conjugate, PCV13 00:00:00 [place] [facility] (Prevnar 13) Branch Pneumococcal 13 2021-11-02 Completed [facility] of Conjugate, PCV13 00:00:00 [place] [facility] (Prevnar 13) Branch Pneumococcal 13 2021-11-02 Completed [facility] of Conjugate, PCV13 00:00:00 [place] [facility] (Prevnar 13) Branch Pneumococcal 13 2021-11-02 Completed [facility] of Conjugate, PCV13 00:00:00 [place] [facility] (Prevnar 13) Branch Pneumococcal 13 2021-11-02 Completed [facility] of Conjugate, PCV13 00:00:00 [place] [facility] (Prevnar 13) Branch Pneumococcal 13 2021-11-02 Completed [facility] of Conjugate, PCV13 00:00:00 [place] [facility] (Prevnar 13) Branch Pneumococcal 13 2021-11-02 Completed [facility] of Conjugate, PCV13 00:00:00 [place] [facility] (Prevnar 13) Branch Pneumococcal 13 2021-11-02 Completed [facility] of Conjugate, PCV13 00:00:00 [place] [facility] (Prevnar 13) Branch Pneumococcal 13 2021-11-02 Completed [facility] of Conjugate, PCV13 00:00:00 [place] [facility] (Prevnar 13) Branch Pneumococcal 13 2021-11-02 Completed [facility] of Conjugate, PCV13 00:00:00 [place] [facility] (Prevnar 13) Branch Pneumococcal 13 2021-11-02 Completed [facility] Conjugate, PCV13 00:00:00 [place] [facility] (Prevnar 13) Branch Pneumococcal 13 2021-11-02 Completed [facility] Conjugate, PCV13 00:00:00 [place] [facility] (Prevnar 13) Branch Pneumococcal 13 2021-11-02 Completed [facility] Conjugate, PCV13 00:00:00 [place] [facility] (Prevnar 13) Branch Pneumococcal 13 2021-11-02 Completed [facility] Conjugate, PCV13 00:00:00 [place] [facility] (Prevnar 13) Branch Pneumococcal 13 2021-11-02 Completed [facility] Conjugate, PCV13 00:00:00 [place] [facility] (Prevnar 13) Branch Pneumococcal 13 2021-11-02 Completed [facility] Conjugate, PCV13 00:00:00 [place] [facility] (Prevnar 13) Branch Pneumococcal 13 2021-11-02 Completed [facility] Conjugate, PCV13 00:00:00 [place] [facility] (Prevnar 13) Branch Pneumococcal 13 2021-11-02 Completed [facility] Conjugate, PCV13 00:00:00 [place] [facility] (Prevnar 13) Branch Pneumococcal 13 2021-11-02 Completed [facility] Conjugate, PCV13 00:00:00 [place] [facility] (Prevnar 13) Branch Pneumococcal 13 2021-11-02 Completed [facility] Conjugate, PCV13 00:00:00 [place] [facility] (Prevnar 13) Branch Pneumococcal 13 2021-11-02 Completed [facility] Conjugate, PCV13 00:00:00 [place] [facility] (Prevnar 13) Branch Pneumococcal 13 2021-11-02 Completed [facility] Conjugate, PCV13 00:00:00 [place] [facility] (Prevnar 13) Branch Pneumococcal 13 2021-11-02 Completed [facility] Conjugate, PCV13 00:00:00 [place] [facility] (Prevnar 13) Branch Pneumococcal 13 2021-11-02 Completed [facility] Conjugate, PCV13 00:00:00 [place] [facility] (Prevnar 13) Branch Pneumococcal 13 2021-11-02 Completed [facility] Conjugate, PCV13 00:00:00 [place] [facility] (Prevnar 13) Branch Pneumococcal 13 2021-11-02 Completed [facility] Conjugate, PCV13 00:00:00 [place] [facility] (Prevnar 13) Branch Pneumococcal 13 2021-11-02 Completed [facility] Conjugate, PCV13 00:00:00 [place] [facility] (Prevnar 13) Branch Pneumococcal 13 2021-11-02 Completed [facility] Conjugate, PCV13 00:00:00 [place] [facility] (Prevnar 13) Branch Pneumococcal 13 2021-11-02 Completed [facility] Conjugate, PCV13 00:00:00 [place] [facility] (Prevnar 13) Branch Pneumococcal 13 2021-11-02 Completed [facility] Conjugate, PCV13 00:00:00 [place] [facility] (Prevnar 13) Branch Pneumococcal 13 2021-11-02 Completed [facility] Conjugate, PCV13 00:00:00 [place] [facility] (Prevnar 13) Branch Pneumococcal 13 2021-11-02 Completed [facility] Conjugate, PCV13 00:00:00 [place] [facility] (Prevnar 13) Branch Pneumococcal 13 2021-11-02 Completed [facility] Conjugate, PCV13 00:00:00 [place] [facility] (Prevnar 13) Branch Pneumococcal 13 2021-11-02 Completed [facility] Conjugate, PCV13 00:00:00 [place] [facility] (Prevnar 13) Branch Pneumococcal 13 2021-11-02 Completed [facility] Conjugate, PCV13 00:00:00 [place] [facility] (Prevnar 13) Branch Pneumococcal 13 2021-11-02 Completed [facility] Conjugate, PCV13 00:00:00 [place] [facility] (Prevnar 13) Branch Pneumococcal 13 2021-11-02 Completed [facility] Conjugate, PCV13 00:00:00 [place] [facility] (Prevnar 13) Branch Pneumococcal 13 2021-11-02 Completed [facility] Conjugate, PCV13 00:00:00 [place] [facility] (Prevnar 13) Branch Pneumococcal 13 2021-11-02 Completed [facility] Conjugate, PCV13 00:00:00 [place] [facility] (Prevnar 13) Branch Pneumococcal 13 2021-11-02 Completed [facility] Conjugate, PCV13 00:00:00 [place] [facility] (Prevnar 13) Branch Pneumococcal 13 2021-11-02 Completed [facility] Conjugate, PCV13 00:00:00 [place] [facility] (Prevnar 13) Branch Pneumococcal 13 2021-11-02 Completed [facility] Conjugate, PCV13 00:00:00 [place] [facility] (Prevnar 13) Branch Pneumococcal 13 2021-11-02 Completed [facility] Conjugate, PCV13 00:00:00 [place] [facility] (Prevnar 13) Branch Pneumococcal 13 2021-11-02 Completed [facility] Conjugate, PCV13 00:00:00 [place] [facility] (Prevnar 13) Branch Pneumococcal 13 2021-11-02 Completed [facility] Conjugate, PCV13 00:00:00 [place] [facility] (Prevnar 13) Branch Pneumococcal 13 2021-11-02 Completed [facility] Conjugate, PCV13 00:00:00 [place] [facility] (Prevnar 13) Branch Pneumococcal 13 2021-11-02 Completed [facility] Conjugate, PCV13 00:00:00 [place] [facility] (Prevnar 13) Branch Pneumococcal 13 2021-11-02 Completed [facility] Conjugate, PCV13 00:00:00 [place] [facility] (Prevnar 13) Branch Pneumococcal 13 2021-11-02 Completed [facility] Conjugate, PCV13 00:00:00 [place] [facility] (Prevnar 13) Branch Pneumococcal 13 2021-11-02 Completed [facility] Conjugate, PCV13 00:00:00 [place] [facility] (Prevnar 13) Branch Pneumococcal 13 2021-11-02 Completed [facility] Conjugate, PCV13 00:00:00 [place] [facility] (Prevnar 13) Branch Pneumococcal 13 2021-11-02 Completed [facility] Conjugate, PCV13 00:00:00 [place] [facility] (Prevnar 13) Branch Pneumococcal 13 2021-11-02 Completed [facility] Conjugate, PCV13 00:00:00 [place] [facility] (Prevnar 13) Branch Pneumococcal 13 2021-11-02 Completed [facility] Conjugate, PCV13 00:00:00 [place] [facility] (Prevnar 13) Branch Pneumococcal 13 2021-11-02 Completed [facility] Conjugate, PCV13 00:00:00 [place] [facility] (Prevnar 13) Branch Pneumococcal 13 2021-11-02 Completed [facility] Conjugate, PCV13 00:00:00 [place] [facility] (Prevnar 13) Branch Pneumococcal 13 2021-11-02 Completed [facility] Conjugate, PCV13 00:00:00 [place] [facility] (Prevnar 13) Branch Pneumococcal 13 2021-11-02 Completed [facility] Conjugate, PCV13 00:00:00 [place] [facility] (Prevnar 13) Branch Pneumococcal 13 2021-11-02 Completed [facility] Conjugate, PCV13 00:00:00 [place] [facility] (Prevnar 13) Branch Pneumococcal 13 2021-11-02 Completed [facility] Conjugate, PCV13 00:00:00 [place] [facility] (Prevnar 13) Branch Pneumococcal 13 2021-11-02 Completed [facility] Conjugate, PCV13 00:00:00 [place] [facility] (Prevnar 13) Branch Pneumococcal 13 2021-11-02 Completed [facility] Conjugate, PCV13 00:00:00 [place] [facility] (Prevnar 13) Branch Pneumococcal 13 2021-11-02 Completed [facility] Conjugate, PCV13 00:00:00 [place] [facility] (Prevnar 13) Branch Pneumococcal 13 2021-11-02 Completed [facility] Conjugate, PCV13 00:00:00 [place] [facility] (Prevnar 13) Branch Pneumococcal 13 2021-11-02 Completed [facility] Conjugate, PCV13 00:00:00 [place] [facility] (Prevnar 13) Branch Pneumococcal 13 2021-11-02 Completed [facility] Conjugate, PCV13 00:00:00 [place] [facility] (Prevnar 13) Branch Pneumococcal 13 2021-11-02 Completed [facility] Conjugate, PCV13 00:00:00 [place] [facility] (Prevnar 13) Branch Pneumococcal 13 2021-11-02 Completed [facility] Conjugate, PCV13 00:00:00 [place] [facility] (Prevnar 13) Branch Pneumococcal 13 2021-11-02 Completed [facility] Conjugate, PCV13 00:00:00 [place] [facility] (Prevnar 13) Branch Pneumococcal 13 2021-11-02 Completed [facility] Conjugate, PCV13 00:00:00 [place] [facility] (Prevnar 13) Branch Pneumococcal 13 2021-11-02 Completed [facility] Conjugate, PCV13 00:00:00 [place] [facility] (Prevnar 13) Branch Pneumococcal 13 2021-11-02 Completed [facility] Conjugate, PCV13 00:00:00 [place] [facility] (Prevnar 13) Branch Pneumococcal 13 2021-11-02 Completed [facility] Conjugate, PCV13 00:00:00 [place] [facility] (Prevnar 13) Branch Pneumococcal 13 2021-11-02 Completed [facility] Conjugate, PCV13 00:00:00 [place] [facility] (Prevnar 13) Branch Pneumococcal 13 2021-11-02 Completed [facility] Conjugate, PCV13 00:00:00 [place] [facility] (Prevnar 13) Branch Pneumococcal 13 2021-11-02 Completed [facility] Conjugate, PCV13 00:00:00 [place] [facility] (Prevnar 13) Branch Pneumococcal 13 2021-11-02 Completed [facility] Conjugate, PCV13 00:00:00 [place] [facility] (Prevnar 13) Branch Pneumococcal 13 2021-11-02 Completed [facility] Conjugate, PCV13 00:00:00 [place] [facility] (Prevnar 13) Branch Pneumococcal 13 2021-11-02 Completed [facility] Conjugate, PCV13 00:00:00 [place] [facility] (Prevnar 13) Branch Pneumococcal 13 2021-11-02 Completed [facility] Conjugate, PCV13 00:00:00 [place] [facility] (Prevnar 13) Branch Pneumococcal 13 2021-11-02 Completed [facility] Conjugate, PCV13 00:00:00 [place] [facility] (Prevnar 13) Branch Pneumococcal 13 2021-11-02 Completed [facility] Conjugate, PCV13 00:00:00 [place] [facility] (Prevnar 13) Branch Pneumococcal 13 2021-11-02 Completed [facility] Conjugate, PCV13 00:00:00 [place] [facility] (Prevnar 13) Branch Pneumococcal 13 2021-11-02 Completed [facility] Conjugate, PCV13 00:00:00 [place] [facility] (Prevnar 13) Branch Pneumococcal 13 2021-11-02 Completed [facility] Conjugate, PCV13 00:00:00 [place] [facility] (Prevnar 13) Branch Pneumococcal 13 2021-11-02 Completed [facility] Conjugate, PCV13 00:00:00 [place] [facility] (Prevnar 13) Branch Pneumococcal 13 2021-11-02 Completed [facility] Conjugate, PCV13 00:00:00 [place] [facility] (Prevnar 13) Branch Pneumococcal 13 2021-11-02 Completed [facility] Conjugate, PCV13 00:00:00 [place] [facility] (Prevnar 13) Branch Pneumococcal 13 2021-11-02 Completed [facility] Conjugate, PCV13 00:00:00 [place] [facility] (Prevnar 13) Branch Pneumococcal 13 2021-11-02 Completed [facility] Conjugate, PCV13 00:00:00 [place] [facility] (Prevnar 13) Branch Pneumococcal 13 2021-11-02 Completed [facility] Conjugate, PCV13 00:00:00 [place] [facility] (Prevnar 13) Branch Pneumococcal 13 2021-11-02 Completed [facility] Conjugate, PCV13 00:00:00 [place] [facility] (Prevnar 13) Branch Pneumococcal 13 2021-11-02 Completed [facility] Conjugate, PCV13 00:00:00 [place] [facility] (Prevnar 13) Branch Pneumococcal 13 2021-11-02 Completed [facility] Conjugate, PCV13 00:00:00 [place] [facility] (Prevnar 13) Branch Pneumococcal 13 2021-11-02 Completed [facility] Conjugate, PCV13 00:00:00 [place] [facility] (Prevnar 13) Branch Pneumococcal 13 2021-11-02 Completed [facility] Conjugate, PCV13 00:00:00 [place] [facility] (Prevnar 13) Branch Pneumococcal 13 2021-11-02 Completed [facility] Conjugate, PCV13 00:00:00 [place] [facility] (Prevnar 13) Branch Pneumococcal 13 2021-11-02 Completed [facility] Conjugate, PCV13 00:00:00 [facility] dical (Prevnar 13) Branch Pneumococcal 13 2021-11-02 Completed [facility] of Conjugate, PCV13 00:00:00 [facility] dical (Prevnar 13) Branch Pneumococcal 13 2021-11-02 Completed [facility] Conjugate, PCV13 00:00:00 [facility] dical (Prevnar 13) Branch Pneumococcal 13 2021-11-02 Completed [facility] Conjugate, PCV13 00:00:00 [facility] dical (Prevnar 13) Branch Pneumococcal 2021-09-21 Completed [facility] o f Polysaccharide, 00:00:00 [facility] ical PPSV23 (PNEUMOVAX) Branch Influenza Virus 2021-09-21 Completed [facility] Vaccine 00:00:00 [facility] Pneumococcal 2021-09-21 Completed [facility] o f Polysaccharide, 00:00:00 [place] [facility] PPSV23 (PNEUMOVAX) Branch Influenza Virus 2021-09-21 Completed [facility] Vaccine 00:00:00 [facility] Pneumococcal 2021-09-21 Completed [facility] o f Polysaccharide, 00:00:00 [facility] ical PPSV23 (PNEUMOVAX) Branch Influenza Virus 2021-09-21 Completed [facility] Vaccine 00:00:00 [facility] Pneumococcal 2021-09-21 Completed [facility] o f Polysaccharide, 00:00:00 [facility] ical PPSV23 (PNEUMOVAX) Branch Influenza Virus 2021-09-21 Completed [facility] Vaccine 00:00:00 [facility] Pneumococcal 2021-09-21 Completed [facility] o f Polysaccharide, 00:00:00 [facility] ical PPSV23 (PNEUMOVAX) Branch Influenza Virus 2021-09-21 Completed [facility] Vaccine 00:00:00 [facility] Pneumococcal 2021-09-21 Completed [facility] f Polysaccharide, 00:00:00 [place] [facility] PPSV23 (PNEUMOVAX) Branch Influenza Virus 2021-09-21 Completed [facility] Vaccine 00:00:00 [facility] Pneumococcal 2021-09-21 Completed [facility] f Polysaccharide, 00:00:00 [place] [facility] PPSV23 (PNEUMOVAX) Branch Influenza Virus 2021-09-21 Completed [facility] Vaccine 00:00:00 [facility] Pneumococcal 2021-09-21 Completed [facility] f Polysaccharide, 00:00:00 [place] [facility] PPSV23 (PNEUMOVAX) Branch Influenza Virus 2021-09-21 Completed [facility] Vaccine 00:00:00 [facility] Pneumococcal 2021-09-21 Completed [facility] f Polysaccharide, 00:00:00 [place] [facility] PPSV23 (PNEUMOVAX) Branch Influenza Virus 2021-09-21 Completed [facility] Vaccine 00:00:00 [facility] Pneumococcal 2021-09-21 Completed [facility] f Polysaccharide, 00:00:00 [place] [facility] PPSV23 (PNEUMOVAX) Branch Influenza Virus 2021-09-21 Completed [facility] Vaccine 00:00:00 [facility] Pneumococcal 2021-09-21 Completed [facility] f Polysaccharide, 00:00:00 [place] [facility] PPSV23 (PNEUMOVAX) Branch Influenza Virus 2021-09-21 Completed [facility] Vaccine 00:00:00 [facility] Pneumococcal 2021-09-21 Completed [facility] o f Polysaccharide, 00:00:00 [place] [facility] PPSV23 (PNEUMOVAX) Branch Influenza Virus 2021-09-21 Completed [facility] Vaccine 00:00:00 [facility] Pneumococcal 2021-09-21 Completed [facility] o f Polysaccharide, 00:00:00 [place] [facility] PPSV23 (PNEUMOVAX) Branch Influenza Virus 2021-09-21 Completed [facility] Vaccine 00:00:00 [facility] Pneumococcal 2021-09-21 Completed [facility] f Polysaccharide, 00:00:00 [place] [facility] PPSV23 (PNEUMOVAX) Branch Influenza Virus 2021-09-21 Completed [facility] Vaccine 00:00:00 [facility] Pneumococcal 2021-09-21 Completed [facility] o f Polysaccharide, 00:00:00 [place] [facility] PPSV23 (PNEUMOVAX) Branch Influenza Virus 2021-09-21 Completed [facility] of Vaccine 00:00:00 [facility] Pneumococcal 2021-09-21 Completed [facility] o f Polysaccharide, 00:00:00 [place] [facility] PPSV23 (PNEUMOVAX) Branch Influenza Virus 2021-09-21 Completed [facility] of Vaccine 00:00:00 [facility] Pneumococcal 2021-09-21 Completed [facility] o f Polysaccharide, 00:00:00 [place] [facility] PPSV23 (PNEUMOVAX) Branch Influenza Virus 2021-09-21 Completed [facility] Vaccine 00:00:00 [facility] Pneumococcal 2021-09-21 Completed [facility] o f Polysaccharide, 00:00:00 [place] [facility] PPSV23 (PNEUMOVAX) Branch Influenza Virus 2021-09-21 Completed [facility] Vaccine 00:00:00 [facility] Pneumococcal 2021-09-21 Completed [facility] o f Polysaccharide, 00:00:00 [place] [facility] PPSV23 (PNEUMOVAX) Branch Influenza Virus 2021-09-21 Completed [facility] of Vaccine 00:00:00 [facility] Pneumococcal 2021-09-21 Completed [facility] o f Polysaccharide, 00:00:00 [place] [facility] PPSV23 (PNEUMOVAX) Branch Influenza Virus 2021-09-21 Completed [facility] Vaccine 00:00:00 [facility] Pneumococcal 2021-09-21 Completed [facility] o f Polysaccharide, 00:00:00 [place] [facility] PPSV23 (PNEUMOVAX) Branch Influenza Virus 2021-09-21 Completed [facility] of Vaccine 00:00:00 [facility] Pneumococcal 2021-09-21 Completed [facility] o f Polysaccharide, 00:00:00 [facility] ical PPSV23 (PNEUMOVAX) Branch Influenza Virus 2021-09-21 Completed [facility] of Vaccine 00:00:00 [facility] Pneumococcal 2021-09-21 Completed [facility] o f Polysaccharide, 00:00:00 [place] [facility] PPSV23 (PNEUMOVAX) Branch Influenza Virus 2021-09-21 Completed [facility] of Vaccine 00:00:00 [facility] Pneumococcal 2021-09-21 Completed [facility] o f Polysaccharide, 00:00:00 [place] [facility] PPSV23 (PNEUMOVAX) Branch Influenza Virus 2021-09-21 Completed [facility] Vaccine 00:00:00 [facility] Pneumococcal 2021-09-21 Completed [facility] o f Polysaccharide, 00:00:00 [place] [facility] PPSV23 (PNEUMOVAX) Branch Influenza Virus 2021-09-21 Completed [facility] of Vaccine 00:00:00 [facility] Pneumococcal 2021-09-21 Completed [facility] o f Polysaccharide, 00:00:00 [place] [facility] PPSV23 (PNEUMOVAX) Branch Influenza Virus 2021-09-21 Completed [facility] Vaccine 00:00:00 [facility] Pneumococcal 2021-09-21 Completed [facility] o f Polysaccharide, 00:00:00 [place] [facility] PPSV23 (PNEUMOVAX) Branch Influenza Virus 2021-09-21 Completed [facility] of Vaccine 00:00:00 [facility] Pneumococcal 2021-09-21 Completed [facility] o f Polysaccharide, 00:00:00 [place] [facility] PPSV23 (PNEUMOVAX) Branch Influenza Virus 2021-09-21 Completed [facility] Vaccine 00:00:00 [facility] Pneumococcal 2021-09-21 Completed [facility] o f Polysaccharide, 00:00:00 [place] [facility] PPSV23 (PNEUMOVAX) Branch Influenza Virus 2021-09-21 Completed [facility] of Vaccine 00:00:00 [facility] Pneumococcal 2021-09-21 Completed [facility] o f Polysaccharide, 00:00:00 [place] [facility] PPSV23 (PNEUMOVAX) Branch Influenza Virus 2021-09-21 Completed [facility] Vaccine 00:00:00 [facility] Pneumococcal 2021-09-21 Completed [facility] o f Polysaccharide, 00:00:00 [place] [facility] PPSV23 (PNEUMOVAX) Branch Influenza Virus 2021-09-21 Completed [facility] of Vaccine 00:00:00 [facility] Pneumococcal 2021-09-21 Completed [facility] o f Polysaccharide, 00:00:00 [place] [facility] PPSV23 (PNEUMOVAX) Branch Influenza Virus 2021-09-21 Completed [facility] of Vaccine 00:00:00 [facility] Pneumococcal 2021-09-21 Completed [facility] o f Polysaccharide, 00:00:00 [place] [facility] PPSV23 (PNEUMOVAX) Branch Influenza Virus 2021-09-21 Completed [facility] of Vaccine 00:00:00 [facility] Pneumococcal 2021-09-21 Completed [facility] o f Polysaccharide, 00:00:00 [place] [facility] PPSV23 (PNEUMOVAX) Branch Influenza Virus 2021-09-21 Completed [facility] of Vaccine 00:00:00 [facility] Pneumococcal 2021-09-21 Completed [facility] o f Polysaccharide, 00:00:00 [place] [facility] PPSV23 (PNEUMOVAX) Branch Influenza Virus 2021-09-21 Completed [facility] of Vaccine 00:00:00 [facility] Pneumococcal 2021-09-21 Completed [facility] o f Polysaccharide, 00:00:00 [place] [facility] PPSV23 (PNEUMOVAX) Branch Influenza Virus 2021-09-21 Completed [facility] of Vaccine 00:00:00 [facility] Pneumococcal 2021-09-21 Completed [facility] o f Polysaccharide, 00:00:00 [place] [facility] PPSV23 (PNEUMOVAX) Branch Influenza Virus 2021-09-21 Completed [facility] of Vaccine 00:00:00 [facility] Pneumococcal 2021-09-21 Completed [facility] o f Polysaccharide, 00:00:00 [place] [facility] PPSV23 (PNEUMOVAX) Branch Influenza Virus 2021-09-21 Completed [facility] of Vaccine 00:00:00 [facility] Pneumococcal 2021-09-21 Completed [facility] o f Polysaccharide, 00:00:00 [place] [facility] PPSV23 (PNEUMOVAX) Branch Influenza Virus 2021-09-21 Completed [facility] of Vaccine 00:00:00 [facility] Pneumococcal 2021-09-21 Completed [facility] o f Polysaccharide, 00:00:00 [place] [facility] PPSV23 (PNEUMOVAX) Branch Influenza Virus 2021-09-21 Completed [facility] of Vaccine 00:00:00 [facility] Pneumococcal 2021-09-21 Completed [facility] o f Polysaccharide, 00:00:00 [place] [facility] PPSV23 (PNEUMOVAX) Branch Influenza Virus 2021-09-21 Completed [facility] of Vaccine 00:00:00 [facility] Pneumococcal 2021-09-21 Completed [facility] o f Polysaccharide, 00:00:00 [place] [facility] PPSV23 (PNEUMOVAX) Branch Influenza Virus 2021-09-21 Completed [facility] of Vaccine 00:00:00 [facility] Pneumococcal 2021-09-21 Completed [facility] o f Polysaccharide, 00:00:00 [place] [facility] PPSV23 (PNEUMOVAX) Branch Influenza Virus 2021-09-21 Completed [facility] of Vaccine 00:00:00 [facility] Pneumococcal 2021-09-21 Completed [facility] o f Polysaccharide, 00:00:00 [place] [facility] PPSV23 (PNEUMOVAX) Branch Influenza Virus 2021-09-21 Completed [facility] of Vaccine 00:00:00 [facility] Pneumococcal 2021-09-21 Completed [facility] o f Polysaccharide, 00:00:00 [place] [facility] PPSV23 (PNEUMOVAX) Branch Influenza Virus 2021-09-21 Completed [facility] of Vaccine 00:00:00 [facility] Pneumococcal 2021-09-21 Completed [facility] o f Polysaccharide, 00:00:00 [place] [facility] PPSV23 (PNEUMOVAX) Branch Influenza Virus 2021-09-21 Completed [facility] of Vaccine 00:00:00 [facility] Pneumococcal 2021-09-21 Completed [facility] o f Polysaccharide, 00:00:00 [place] [facility] PPSV23 (PNEUMOVAX) Branch Influenza Virus 2021-09-21 Completed [facility] of Vaccine 00:00:00 [facility] Pneumococcal 2021-09-21 Completed [facility] o f Polysaccharide, 00:00:00 [place] [facility] PPSV23 (PNEUMOVAX) Branch Influenza Virus 2021-09-21 Completed [facility] of Vaccine 00:00:00 [facility] Pneumococcal 2021-09-21 Completed [facility] o f Polysaccharide, 00:00:00 [place] [facility] PPSV23 (PNEUMOVAX) Branch Influenza Virus 2021-09-21 Completed [facility] of Vaccine 00:00:00 [facility] Pneumococcal 2021-09-21 Completed [facility] o f Polysaccharide, 00:00:00 [facility] ical PPSV23 (PNEUMOVAX) Branch Influenza Virus 2021-09-21 Completed [facility] of Vaccine 00:00:00 [facility] Pneumococcal 2021-09-21 Completed [facility] o f Polysaccharide, 00:00:00 [facility] ical PPSV23 (PNEUMOVAX) Branch Influenza Virus 2021-09-21 Completed [facility] of Vaccine 00:00:00 [facility] Pneumococcal 2021-09-21 Completed [facility] o f Polysaccharide, 00:00:00 [place] [facility] PPSV23 (PNEUMOVAX) Branch Influenza Virus 2021-09-21 Completed [facility] of Vaccine 00:00:00 [facility] Pneumococcal 2021-09-21 Completed [facility] o f Polysaccharide, 00:00:00 [place] [facility] PPSV23 (PNEUMOVAX) Branch Influenza Virus 2021-09-21 Completed [facility] of Vaccine 00:00:00 [facility] Pneumococcal 2021-09-21 Completed [facility] o f Polysaccharide, 00:00:00 [place] [facility] PPSV23 (PNEUMOVAX) Branch Influenza Virus 2021-09-21 Completed [facility] of Vaccine 00:00:00 [facility] Pneumococcal 2021-09-21 Completed [facility] o f Polysaccharide, 00:00:00 [place] [facility] PPSV23 (PNEUMOVAX) Branch Influenza Virus 2021-09-21 Completed [facility] of Vaccine 00:00:00 [facility] Pneumococcal 2021-09-21 Completed [facility] o f Polysaccharide, 00:00:00 [place] [facility] PPSV23 (PNEUMOVAX) Branch Influenza Virus 2021-09-21 Completed [facility] of Vaccine 00:00:00 [facility] Pneumococcal 2021-09-21 Completed [facility] o f Polysaccharide, 00:00:00 [place] [facility] PPSV23 (PNEUMOVAX) Branch Influenza Virus 2021-09-21 Completed [facility] Vaccine 00:00:00 [facility] [facility] Pneumococcal 2021-09-21 Completed [facility] Polysaccharide, 00:00:00 [place] [facility] PPSV23 (PNEUMOVAX) Branch Influenza Virus 2021-09-21 Completed [facility]it [facility] Vaccine 00:00:00 [facility] Pneumococcal 2021-09-21 Completed [facility] f Polysaccharide, 00:00:00 [place] [facility] PPSV23 (PNEUMOVAX) Branch Influenza Virus 2021-09-21 Completed [facility] Vaccine 00:00:00 [facility] Pneumococcal 2021-09-21 Completed [facility] f Polysaccharide, 00:00:00 [place] [facility] PPSV23 (PNEUMOVAX) Branch Influenza Virus 2021-09-21 Completed [facility] Vaccine 00:00:00 [facility] Pneumococcal 2021-09-21 Completed [facility] f Polysaccharide, 00:00:00 [place] [facility] PPSV23 (PNEUMOVAX) Branch Influenza Virus 2021-09-21 Completed [facility] Vaccine 00:00:00 [facility] Pneumococcal 2021-09-21 Completed [facility] o f Polysaccharide, 00:00:00 [place] [facility] PPSV23 (PNEUMOVAX) Branch Influenza Virus 2021-09-21 Completed [facility] Vaccine 00:00:00 [facility] Pneumococcal 2021-09-21 Completed [facility] f Polysaccharide, 00:00:00 [place] [facility] PPSV23 (PNEUMOVAX) Branch Influenza Virus 2021-09-21 Completed [facility] Vaccine 00:00:00 [facility] Pneumococcal 2021-09-21 Completed [facility] o f Polysaccharide, 00:00:00 [place] [facility] PPSV23 (PNEUMOVAX) Branch Influenza Virus 2021-09-21 Completed [facility] Vaccine 00:00:00 [facility] Pneumococcal 2021-09-21 Completed [facility] o f Polysaccharide, 00:00:00 [place] [facility] PPSV23 (PNEUMOVAX) Branch Influenza Virus 2021-09-21 Completed [facility] Vaccine 00:00:00 [facility] Pneumococcal 2021-09-21 Completed [facility] f Polysaccharide, 00:00:00 [place] [facility] PPSV23 (PNEUMOVAX) Branch Influenza Virus 2021-09-21 Completed [facility] Vaccine 00:00:00 [facility] Pneumococcal 2021-09-21 Completed [facility] o f Polysaccharide, 00:00:00 [place] [facility] PPSV23 (PNEUMOVAX) Branch Influenza Virus 2021-09-21 Completed [facility] Vaccine 00:00:00 [facility] Pneumococcal 2021-09-21 Completed [facility] o f Polysaccharide, 00:00:00 [place] [facility] PPSV23 (PNEUMOVAX) Branch Influenza Virus 2021-09-21 Completed [facility] Vaccine 00:00:00 [facility] Pneumococcal 2021-09-21 Completed [facility] o f Polysaccharide, 00:00:00 [place] [facility] PPSV23 (PNEUMOVAX) Branch Influenza Virus 2021-09-21 Completed [facility] Vaccine 00:00:00 [facility] Pneumococcal 2021-09-21 Completed [facility] o f Polysaccharide, 00:00:00 [place] [facility] PPSV23 (PNEUMOVAX) Branch Influenza Virus 2021-09-21 Completed [facility] Vaccine 00:00:00 [facility] Pneumococcal 2021-09-21 Completed [facility] o f Polysaccharide, 00:00:00 [place] [facility] PPSV23 (PNEUMOVAX) Branch Influenza Virus 2021-09-21 Completed [facility] Vaccine 00:00:00 [facility] Pneumococcal 2021-09-21 Completed [facility] o f Polysaccharide, 00:00:00 [place] [facility] PPSV23 (PNEUMOVAX) Branch Influenza Virus 2021-09-21 Completed [facility] Vaccine 00:00:00 [facility] Pneumococcal 2021-09-21 Completed [facility] o f Polysaccharide, 00:00:00 [place] [facility] PPSV23 (PNEUMOVAX) Branch Influenza Virus 2021-09-21 Completed [facility] Vaccine 00:00:00 [facility] Pneumococcal 2021-09-21 Completed [facility] o f Polysaccharide, 00:00:00 [place] [facility] PPSV23 (PNEUMOVAX) Branch Influenza Virus 2021-09-21 Completed [facility] Vaccine 00:00:00 [facility] Pneumococcal 2021-09-21 Completed [facility] o f Polysaccharide, 00:00:00 [place] [facility] PPSV23 (PNEUMOVAX) Branch Influenza Virus 2021-09-21 Completed [facility] of Vaccine 00:00:00 [facility] Pneumococcal 2021-09-21 Completed [facility] o f Polysaccharide, 00:00:00 [place] [facility] PPSV23 (PNEUMOVAX) Branch Influenza Virus 2021-09-21 Completed [facility] Vaccine 00:00:00 [facility] Pneumococcal 2021-09-21 Completed [facility] o f Polysaccharide, 00:00:00 [place] [facility] PPSV23 (PNEUMOVAX) Branch Influenza Virus 2021-09-21 Completed [facility] Vaccine 00:00:00 [facility] Pneumococcal 2021-09-21 Completed [facility] o f Polysaccharide, 00:00:00 [place] [facility] PPSV23 (PNEUMOVAX) Branch Influenza Virus 2021-09-21 Completed [facility] Vaccine 00:00:00 [facility] Pneumococcal 2021-09-21 Completed [facility] o f Polysaccharide, 00:00:00 [place] [facility] PPSV23 (PNEUMOVAX) Branch Influenza Virus 2021-09-21 Completed [facility] Vaccine 00:00:00 [facility] Pneumococcal 2021-09-21 Completed [facility] o f Polysaccharide, 00:00:00 [place] [facility] PPSV23 (PNEUMOVAX) Branch Influenza Virus 2021-09-21 Completed [facility] Vaccine 00:00:00 [facility] Pneumococcal 2021-09-21 Completed [facility] o f Polysaccharide, 00:00:00 [place] [facility] PPSV23 (PNEUMOVAX) Branch Influenza Virus 2021-09-21 Completed [facility] Vaccine 00:00:00 [facility] Pneumococcal 2021-09-21 Completed [facility] o f Polysaccharide, 00:00:00 [place] [facility] PPSV23 (PNEUMOVAX) Branch Influenza Virus 2021-09-21 Completed [facility] Vaccine 00:00:00 [facility] Pneumococcal 2021-09-21 Completed [facility] o f Polysaccharide, 00:00:00 [place] [facility] PPSV23 (PNEUMOVAX) Branch Influenza Virus 2021-09-21 Completed [facility] Vaccine 00:00:00 [facility] Pneumococcal 2021-09-21 Completed [facility] o f Polysaccharide, 00:00:00 [place] [facility] PPSV23 (PNEUMOVAX) Branch Influenza Virus 2021-09-21 Completed [facility] Vaccine 00:00:00 [facility] Pneumococcal 2021-09-21 Completed [facility] o f Polysaccharide, 00:00:00 [place] [facility] PPSV23 (PNEUMOVAX) Branch Influenza Virus 2021-09-21 Completed [facility] Vaccine 00:00:00 [facility] Pneumococcal 2021-09-21 Completed [facility] o f Polysaccharide, 00:00:00 [place] [facility] PPSV23 (PNEUMOVAX) Branch Influenza Virus 2021-09-21 Completed [facility] Vaccine 00:00:00 [facility] Pneumococcal 2021-09-21 Completed [facility] o f Polysaccharide, 00:00:00 [place] [facility] PPSV23 (PNEUMOVAX) Branch Influenza Virus 2021-09-21 Completed [facility] Vaccine 00:00:00 [facility] Pneumococcal 2021-09-21 Completed [facility] o f Polysaccharide, 00:00:00 [facility] ical PPSV23 (PNEUMOVAX) Branch Influenza Virus 2021-09-21 Completed [facility] of Vaccine 00:00:00 [facility] Pneumococcal 2021-09-21 Completed [facility] o f Polysaccharide, 00:00:00 [place] [facility] PPSV23 (PNEUMOVAX) Branch Influenza Virus 2021-09-21 Completed [facility] of Vaccine 00:00:00 [facility] Pneumococcal 2021-09-21 Completed [facility] o f Polysaccharide, 00:00:00 [place] [facility] PPSV23 (PNEUMOVAX) Branch Influenza Virus 2021-09-21 Completed [facility] Vaccine 00:00:00 [facility] Pneumococcal 2021-09-21 Completed [facility] o f Polysaccharide, 00:00:00 [place] [facility] PPSV23 (PNEUMOVAX) Branch Influenza Virus 2021-09-21 Completed [facility] Vaccine 00:00:00 [facility] Pneumococcal 2021-09-21 Completed [facility] o f Polysaccharide, 00:00:00 [place] [facility] PPSV23 (PNEUMOVAX) Branch Influenza Virus 2021-09-21 Completed [facility] Vaccine 00:00:00 [facility] Pneumococcal 2021-09-21 Completed [facility] o f Polysaccharide, 00:00:00 [place] [facility] PPSV23 (PNEUMOVAX) Branch Influenza Virus 2021-09-21 Completed [facility] Vaccine 00:00:00 [facility] Pneumococcal 2021-09-21 Completed [facility] o f Polysaccharide, 00:00:00 [place] [facility] PPSV23 (PNEUMOVAX) Branch Influenza Virus 2021-09-21 Completed [facility] Vaccine 00:00:00 [facility] Pneumococcal 2021-09-21 Completed [facility] o f Polysaccharide, 00:00:00 [place] [facility] PPSV23 (PNEUMOVAX) Branch Influenza Virus 2021-09-21 Completed [facility] Vaccine 00:00:00 [facility] Pneumococcal 2021-09-21 Completed [facility] o f Polysaccharide, 00:00:00 [place] [facility] PPSV23 (PNEUMOVAX) Branch Influenza Virus 2021-09-21 Completed [facility] Vaccine 00:00:00 [facility] Pneumococcal 2021-09-21 Completed [facility] o f Polysaccharide, 00:00:00 [place] [facility] PPSV23 (PNEUMOVAX) Branch Influenza Virus 2021-09-21 Completed [facility] of Vaccine 00:00:00 [facility] Pneumococcal 2021-09-21 Completed [facility] o f Polysaccharide, 00:00:00 [place] [facility] PPSV23 (PNEUMOVAX) Branch Influenza Virus 2021-09-21 Completed [facility] Vaccine 00:00:00 [facility] Pneumococcal 2021-09-21 Completed [facility] o f Polysaccharide, 00:00:00 [place] [facility] PPSV23 (PNEUMOVAX) Branch Influenza Virus 2021-09-21 Completed [facility] Vaccine 00:00:00 [facility] Pneumococcal 2021-09-21 Completed [facility] o f Polysaccharide, 00:00:00 [place] [facility] PPSV23 (PNEUMOVAX) Branch Influenza Virus 2021-09-21 Completed [facility] Vaccine 00:00:00 [facility] Pneumococcal 2021-09-21 Completed [facility] o f Polysaccharide, 00:00:00 [place] [facility] PPSV23 (PNEUMOVAX) Branch Influenza Virus 2021-09-21 Completed [facility] Vaccine 00:00:00 [facility] Pneumococcal 2021-09-21 Completed [facility] o f Polysaccharide, 00:00:00 [place] [facility] PPSV23 (PNEUMOVAX) Branch Influenza Virus 2021-09-21 Completed [facility] Vaccine 00:00:00 [facility] Pneumococcal 2021-09-21 Completed [facility] o f Polysaccharide, 00:00:00 [place] [facility] PPSV23 (PNEUMOVAX) Branch Influenza Virus 2021-09-21 Completed [facility] Vaccine 00:00:00 [facility] Pneumococcal 2021-09-21 Completed [facility] o f Polysaccharide, 00:00:00 [place] [facility] PPSV23 (PNEUMOVAX) Branch Influenza Virus 2021-09-21 Completed [facility] Vaccine 00:00:00 [facility] Pneumococcal 2021-09-21 Completed [facility] o f Polysaccharide, 00:00:00 [place] [facility] PPSV23 (PNEUMOVAX) Branch Influenza Virus 2021-09-21 Completed [facility] Vaccine 00:00:00 [facility] Pneumococcal 2021-09-21 Completed [facility] o f Polysaccharide, 00:00:00 [place] [facility] PPSV23 (PNEUMOVAX) Branch Influenza Virus 2021-09-21 Completed [facility] Vaccine 00:00:00 [facility] Pneumococcal 2021-09-21 Completed [facility] o f Polysaccharide, 00:00:00 [place] [facility] PPSV23 (PNEUMOVAX) Branch Influenza Virus 2021-09-21 Completed [facility] Vaccine 00:00:00 [facility] Pneumococcal 2021-09-21 Completed [facility] o f Polysaccharide, 00:00:00 [place] [facility] PPSV23 (PNEUMOVAX) Branch Influenza Virus 2021-09-21 Completed [facility] Vaccine 00:00:00 [facility] Pneumococcal 2021-09-21 Completed [facility] o f Polysaccharide, 00:00:00 [place] [facility] PPSV23 (PNEUMOVAX) Branch Influenza Virus 2021-09-21 Completed [facility] Vaccine 00:00:00 [facility] Pneumococcal 2021-09-21 Completed [facility] o f Polysaccharide, 00:00:00 [place] [facility] PPSV23 (PNEUMOVAX) Branch Influenza Virus 2021-09-21 Completed [facility] of Vaccine 00:00:00 [facility] Pneumococcal 2021-09-21 Completed [facility] o f Polysaccharide, 00:00:00 [place] [facility] PPSV23 (PNEUMOVAX) Branch Influenza Virus 2021-09-21 Completed [facility] Vaccine 00:00:00 [facility] Branch SARS-COV-2 COVID-19 2021-07-31 Completed Unive rsity of MODERNA VACCINE 00:00:00 [place] [facility] SARS-COV-2 COVID-19 2021-07-31 Completed Unive rsity of MODERNA VACCINE 00:00:00 [place] [facility] SARS-COV-2 COVID-19 2021-07-31 Completed Unive rsity of MODERNA VACCINE 00:00:00 [place] [facility] SARS-COV-2 COVID-19 2021-07-31 Completed Unive rsity of MODERNA VACCINE 00:00:00 [place] [facility] SARS-COV-2 COVID-19 2021-07-31 Completed Unive rsity of MODERNA VACCINE 00:00:00 [place] [facility] SARS-COV-2 COVID-19 2021-07-31 Completed Unive rsity of MODERNA 12+ YRS 00:00:00 [place] [facility] VACCINE Branch SARS-COV-2 COVID-19 2021-07-31 Completed Unive rsity of MODERNA 12+ YRS 00:00:00 [place] [facility] VACCINE [facility] SARS-COV-2 COVID-19 2021-07-31 Completed Unive rsity of MODERNA 12+ YRS 00:00:00 [place] [facility] VACCINE [facility] SARS-COV-2 COVID-19 2021-07-31 Completed Unive rsity of MODERNA 12+ YRS 00:00:00 [place] [facility] VACCINE [facility] SARS-COV-2 COVID-19 2021-07-31 Completed Unive rsity of MODERNA 12+ YRS 00:00:00 [place] [facility] VACCINE [facility] SARS-COV-2 COVID-19 2021-07-31 Completed Unive rsity of MODERNA 12+ YRS 00:00:00 [place] [facility] VACCINE Branch SARS-COV-2 COVID-19 2021-07-31 Completed Unive rsity of MODERNA 12+ YRS 00:00:00 [place] [facility] VACCINE Branch SARS-COV-2 COVID-19 2021-07-31 Completed Unive rsity of MODERNA 12+ YRS 00:00:00 [place] [facility] VACCINE Branch SARS-COV-2 COVID-19 2021-07-31 Completed Unive rsity of MODERNA 12+ YRS 00:00:00 [place] [facility] VACCINE Branch SARS-COV-2 COVID-19 2021-07-31 Completed Unive rsity of MODERNA 12+ YRS 00:00:00 [place] [facility] VACCINE Branch SARS-COV-2 COVID-19 2021-07-31 Completed Unive rsity of MODERNA 12+ YRS 00:00:00 [place] [facility] VACCINE Branch SARS-COV-2 COVID-19 2021-07-31 Completed Unive rsity of MODERNA 12+ YRS 00:00:00 [place] [facility] VACCINE Branch SARS-COV-2 COVID-19 2021-07-31 Completed Unive rsity of MODERNA 12+ YRS 00:00:00 [place] [facility] VACCINE Branch SARS-COV-2 COVID-19 2021-07-31 Completed Unive rsity of MODERNA 12+ YRS 00:00:00 [place] [facility] VACCINE Branch SARS-COV-2 COVID-19 2021-07-31 Completed Unive rsity of MODERNA 12+ YRS 00:00:00 [place] [facility] VACCINE Branch SARS-COV-2 COVID-19 2021-07-31 Completed Unive rsity of MODERNA 12+ YRS 00:00:00 [place] [facility] VACCINE Branch SARS-COV-2 COVID-19 2021-07-31 Completed Unive rsity of MODERNA 12+ YRS 00:00:00 [place] [facility] VACCINE Branch SARS-COV-2 COVID-19 2021-07-31 Completed Unive rsity of MODERNA 12+ YRS 00:00:00 [place] [facility] VACCINE Branch SARS-COV-2 COVID-19 2021-07-31 Completed Unive rsity of MODERNA 12+ YRS 00:00:00 [place] [facility] VACCINE Branch SARS-COV-2 COVID-19 2021-07-31 Completed Unive rsity of MODERNA 12+ YRS 00:00:00 [place] [facility] VACCINE Branch SARS-COV-2 COVID-19 2021-07-31 Completed Unive rsity of MODERNA 12+ YRS 00:00:00 [place] [facility] VACCINE Branch SARS-COV-2 COVID-19 2021-07-31 Completed Unive rsity of MODERNA 12+ YRS 00:00:00 [place] [facility] VACCINE Branch SARS-COV-2 COVID-19 2021-07-31 Completed Unive rsity of MODERNA 12+ YRS 00:00:00 [place] [facility] VACCINE Branch SARS-COV-2 COVID-19 2021-07-31 Completed Unive rsity of MODERNA 12+ YRS 00:00:00 [place] [facility] VACCINE Branch SARS-COV-2 COVID-19 2021-07-31 Completed Unive rsity of MODERNA 12+ YRS 00:00:00 [place] [facility] VACCINE Branch SARS-COV-2 COVID-19 2021-07-31 Completed Unive rsity of MODERNA 12+ YRS 00:00:00 [place] [facility] VACCINE Branch SARS-COV-2 COVID-19 2021-07-31 Completed Unive rsity of MODERNA 12+ YRS 00:00:00 [place] [facility] VACCINE Branch SARS-COV-2 COVID-19 2021-07-31 Completed Unive rsity of MODERNA 12+ YRS 00:00:00 [place] [facility] VACCINE Branch SARS-COV-2 COVID-19 2021-07-31 Completed Unive rsity of MODERNA 12+ YRS 00:00:00 [place] [facility] VACCINE Branch SARS-COV-2 COVID-19 2021-07-31 Completed Unive rsity of MODERNA 12+ YRS 00:00:00 [place] [facility] VACCINE Branch SARS-COV-2 COVID-19 2021-07-31 Completed Unive rsity of MODERNA 12+ YRS 00:00:00 [place] [facility] VACCINE Branch SARS-COV-2 COVID-19 2021-07-31 Completed Unive rsity of MODERNA 12+ YRS 00:00:00 [place] [facility] VACCINE Branch SARS-COV-2 COVID-19 2021-07-31 Completed Unive rsity of MODERNA 12+ YRS 00:00:00 [place] [facility] VACCINE Branch SARS-COV-2 COVID-19 2021-07-31 Completed Unive rsity of MODERNA 12+ YRS 00:00:00 [place] [facility] VACCINE Branch SARS-COV-2 COVID-19 2021-07-31 Completed Unive rsity of MODERNA 12+ YRS 00:00:00 [place] [facility] VACCINE Branch SARS-COV-2 COVID-19 2021-07-31 Completed Unive rsity of MODERNA 12+ YRS 00:00:00 [place] [facility] VACCINE Branch SARS-COV-2 COVID-19 2021-07-31 Completed Unive rsity of MODERNA 12+ YRS 00:00:00 [place] [facility] VACCINE Branch SARS-COV-2 COVID-19 2021-07-31 Completed Unive rsity of MODERNA 12+ YRS 00:00:00 [place] [facility] VACCINE Branch SARS-COV-2 COVID-19 2021-07-31 Completed Unive rsity of MODERNA 12+ YRS 00:00:00 [place] [facility] VACCINE Branch SARS-COV-2 COVID-19 2021-07-31 Completed Unive rsity of MODERNA 12+ YRS 00:00:00 [place] [facility] VACCINE Branch SARS-COV-2 COVID-19 2021-07-31 Completed Unive rsity of MODERNA 12+ YRS 00:00:00 [place] [facility] VACCINE Branch SARS-COV-2 COVID-19 2021-07-31 Completed Unive rsity of MODERNA 12+ YRS 00:00:00 [place] [facility] VACCINE Branch SARS-COV-2 COVID-19 2021-07-31 Completed Unive rsity of MODERNA 12+ YRS 00:00:00 [place] [facility] VACCINE Branch SARS-COV-2 COVID-19 2021-07-31 Completed Unive rsity of MODERNA 12+ YRS 00:00:00 [place] [facility] VACCINE Branch SARS-COV-2 COVID-19 2021-07-31 Completed Unive rsity of MODERNA 12+ YRS 00:00:00 [place] [facility] VACCINE Branch SARS-COV-2 COVID-19 2021-07-31 Completed Unive rsity of MODERNA 12+ YRS 00:00:00 [place] [facility] VACCINE Branch SARS-COV-2 COVID-19 2021-07-31 Completed Unive rsity of MODERNA 12+ YRS 00:00:00 [place] [facility] VACCINE Branch SARS-COV-2 COVID-19 2021-07-31 Completed Unive rsity of MODERNA 12+ YRS 00:00:00 [place] [facility] VACCINE Branch SARS-COV-2 COVID-19 2021-07-31 Completed Unive rsity of MODERNA 12+ YRS 00:00:00 [place] [facility] VACCINE Branch SARS-COV-2 COVID-19 2021-07-31 Completed Unive rsity of MODERNA 12+ YRS 00:00:00 [place] [facility] VACCINE Branch SARS-COV-2 COVID-19 2021-07-31 Completed Unive rsity of MODERNA 12+ YRS 00:00:00 [place] [facility] VACCINE Branch SARS-COV-2 COVID-19 2021-07-31 Completed Unive rsity of MODERNA 12+ YRS 00:00:00 [place] [facility] VACCINE Branch SARS-COV-2 COVID-19 2021-07-31 Completed Unive rsity of MODERNA 12+ YRS 00:00:00 [place] [facility] VACCINE Branch SARS-COV-2 COVID-19 2021-07-31 Completed Unive rsity of MODERNA 12+ YRS 00:00:00 [place] [facility] VACCINE Branch SARS-COV-2 COVID-19 2021-07-31 Completed Unive rsity of MODERNA 12+ YRS 00:00:00 [place] [facility] VACCINE Branch SARS-COV-2 COVID-19 2021-07-31 Completed Unive rsity of MODERNA 12+ YRS 00:00:00 [place] [facility] VACCINE Branch SARS-COV-2 COVID-19 2021-07-31 Completed Unive rsity of MODERNA 12+ YRS 00:00:00 [place] [facility] VACCINE Branch SARS-COV-2 COVID-19 2021-07-31 Completed Unive rsity of MODERNA 12+ YRS 00:00:00 [place] [facility] VACCINE Branch SARS-COV-2 COVID-19 2021-07-31 Completed Unive rsity of MODERNA 12+ YRS 00:00:00 [place] [facility] VACCINE Branch SARS-COV-2 COVID-19 2021-07-31 Completed [facility]ive rsity of MODERNA 12+ YRS 00:00:00 [place] [facility] VACCINE Branch SARS-COV-2 COVID-19 2021-07-31 Completed Unive rsity of MODERNA 12+ YRS 00:00:00 [place] [facility] VACCINE Branch SARS-COV-2 COVID-19 2021-07-31 Completed [facility]ive rsity of MODERNA 12+ YRS 00:00:00 [place] [facility] VACCINE Branch SARS-COV-2 COVID-19 2021-07-31 Completed [facility]ive rsity of MODERNA 12+ YRS 00:00:00 [place] [facility] VACCINE Branch SARS-COV-2 COVID-19 2021-07-31 Completed [facility]ive rsity of MODERNA 12+ YRS 00:00:00 [place] [facility] VACCINE Branch SARS-COV-2 COVID-19 2021-07-31 Completed Unive rsity of MODERNA 12+ YRS 00:00:00 [place] [facility] VACCINE Branch SARS-COV-2 COVID-19 2021-07-31 Completed [facility]ive rsity of MODERNA 12+ YRS 00:00:00 [place] [facility] VACCINE Branch SARS-COV-2 COVID-19 2021-07-31 Completed [facility]ive rsity of MODERNA 12+ YRS 00:00:00 [place] [facility] VACCINE Branch SARS-COV-2 COVID-19 2021-07-31 Completed [facility]ive rsity of MODERNA 12+ YRS 00:00:00 [place] [facility] VACCINE Branch SARS-COV-2 COVID-19 2021-07-31 Completed Unive rsity of MODERNA 12+ YRS 00:00:00 [place] [facility] VACCINE Branch SARS-COV-2 COVID-19 2021-07-31 Completed [facility]ive rsity of MODERNA 12+ YRS 00:00:00 [place] [facility] VACCINE Branch SARS-COV-2 COVID-19 2021-07-31 Completed [facility]ive rsity of MODERNA 12+ YRS 00:00:00 [place] [facility] VACCINE Branch SARS-COV-2 COVID-19 2021-07-31 Completed [facility] rsity of MODERNA 12+ YRS 00:00:00 [place] [facility] VACCINE Branch SARS-COV-2 COVID-19 2021-07-31 Completed [facility] rsity of MODERNA 12+ YRS 00:00:00 [place] [facility] VACCINE Branch SARS-COV-2 COVID-19 2021-07-31 Completed [facility]ive rsity of MODERNA 12+ YRS 00:00:00 [place] [facility] VACCINE Branch SARS-COV-2 COVID-19 2021-07-31 Completed [facility] rsity of MODERNA 12+ YRS 00:00:00 [place] [facility] VACCINE Branch SARS-COV-2 COVID-19 2021-07-31 Completed [facility] rsity of MODERNA 12+ YRS 00:00:00 [place] [facility] VACCINE Branch SARS-COV-2 COVID-19 2021-07-31 Completed [facility]ive rsity of MODERNA 12+ YRS 00:00:00 [place] [facility] VACCINE Branch SARS-COV-2 COVID-19 2021-07-31 Completed [facility]ive rsity of MODERNA 12+ YRS 00:00:00 [place] [facility] VACCINE Branch SARS-COV-2 COVID-19 2021-07-31 Completed [facility]ive rsity of MODERNA 12+ YRS 00:00:00 [place] [facility] VACCINE Branch SARS-COV-2 COVID-19 2021-07-31 Completed [facility]ive rsity of MODERNA 12+ YRS 00:00:00 [place] [facility] VACCINE Branch SARS-COV-2 COVID-19 2021-07-31 Completed [facility]ive rsity of MODERNA 12+ YRS 00:00:00 [place] [facility] VACCINE Branch SARS-COV-2 COVID-19 2021-07-31 Completed [facility]ive rsity of MODERNA 12+ YRS 00:00:00 [place] [facility] VACCINE Branch SARS-COV-2 COVID-19 2021-07-31 Completed [facility]ive rsity of MODERNA 12+ YRS 00:00:00 [place] [facility] VACCINE Branch SARS-COV-2 COVID-19 2021-07-31 Completed [facility]ive rsity of MODERNA 12+ YRS 00:00:00 [place] [facility] VACCINE Branch SARS-COV-2 COVID-19 2021-07-31 Completed [facility]ive rsity of MODERNA 12+ YRS 00:00:00 [place] [facility] VACCINE Branch SARS-COV-2 COVID-19 2021-07-31 Completed [facility]ive rsity of MODERNA 12+ YRS 00:00:00 [place] [facility] VACCINE Branch SARS-COV-2 COVID-19 2021-07-31 Completed [facility]ive rsity of MODERNA 12+ YRS 00:00:00 [place] [facility] VACCINE Branch SARS-COV-2 COVID-19 2021-07-31 Completed [facility] rsity of MODERNA 12+ YRS 00:00:00 [place] [facility] VACCINE Branch SARS-COV-2 COVID-19 2021-07-31 Completed [facility]ive rsity of MODERNA 12+ YRS 00:00:00 [place] [facility] VACCINE Branch SARS-COV-2 COVID-19 2021-07-31 Completed [facility] rsity of MODERNA 12+ YRS 00:00:00 [place] [facility] VACCINE Branch SARS-COV-2 COVID-19 2021-07-31 Completed [facility]ive rsity of MODERNA 12+ YRS 00:00:00 [place] [facility] VACCINE Branch SARS-COV-2 COVID-19 2021-07-31 Completed [facility] rsity of MODERNA 12+ YRS 00:00:00 [place] [facility] VACCINE Branch SARS-COV-2 COVID-19 2021-07-31 Completed [facility]ive rsity of MODERNA 12+ YRS 00:00:00 [place] [facility] VACCINE Branch SARS-COV-2 COVID-19 2021-07-31 Completed [facility]ive rsity of MODERNA 12+ YRS 00:00:00 [place] [facility] VACCINE Branch SARS-COV-2 COVID-19 2021-07-31 Completed [facility]ive rsity of MODERNA 12+ YRS 00:00:00 [place] [facility] VACCINE Branch SARS-COV-2 COVID-19 2021-07-31 Completed [facility] rsity of MODERNA 12+ YRS 00:00:00 [place] [facility] VACCINE Branch SARS-COV-2 COVID-19 2021-07-31 Completed Unive rsity of MODERNA 12+ YRS 00:00:00 [place] [facility] SARS-COV-2 COVID-19 2021-07-31 Completed [facility] 12+ YRS 00:00:00 [place] [facility] SARS-COV-2 COVID-19 2021-07-31 Completed [facility] 12+ YRS 00:00:00 [place] [facility] SARS-COV-2 COVID-19 2021-07-31 Completed [facility] 12+ YRS 00:00:00 [place] [facility] SARS-COV-2 COVID-19 2021-07-31 Completed [facility]ERNA 12+ YRS 00:00:00 [place] [facility] SARS-COV-2 COVID-19 2021-07-31 Completed [facility]ERNA 12+ YRS 00:00:00 [place] [facility] SARS-COV-2 COVID-19 2021-07-31 Completed [facility] MODERNA 12+ YRS 00:00:00 [place] [facility] SARS-COV-2 COVID-19 2021-07-31 Completed [facility]ERNA 12+ YRS 00:00:00 [place] [facility] SARS-COV-2 COVID-19 2021-07-31 Completed [facility] MODERNA 12+ YRS 00:00:00 [place] [facility] SARS-COV-2 COVID-19 2021-07-31 Completed [facility]ERNA 12+ YRS 00:00:00 [place] [facility] Moderna SARS-CoV-2 2021-07-31 Completed [facility] 2020-12-29 Completed [facility] VACCINE 00:00:00 [place] [facility] SARS-COV-2 COVID-19 2020-12-29 Completed [facility] VACCINE 00:00:00 [place] [facility] SARS-COV-2 COVID-19 2020-12-29 Completed [facility] VACCINE 00:00:00 [place] [facility] SARS-COV-2 COVID-19 2020-12-29 Completed [facility] VACCINE 00:00:00 [place] [facility] SARS-COV-2 COVID-19 2020-12-29 Completed [facility]ERNA VACCINE 00:00:00 [place] [facility] SARS-COV-2 COVID-19 2020-12-29 Completed [facility] MODERNA 12+ YRS 00:00:00 [place] [facility] SARS-COV-2 COVID-19 2020-12-29 Completed [facility] MODERNA 12+ YRS 00:00:00 [place] [facility] SARS-COV-2 COVID-19 2020-12-29 Completed [facility] MODERNA 12+ YRS 00:00:00 [place] [facility] SARS-COV-2 COVID-19 2020-12-29 Completed [facility] MODERNA 12+ YRS 00:00:00 [place] [facility] SARS-COV-2 COVID-19 2020-12-29 Completed [facility] MODERNA 12+ YRS 00:00:00 [place] [facility] SARS-COV-2 COVID-19 2020-12-29 Completed [facility] MODERNA 12+ YRS 00:00:00 [place] [facility] SARS-COV-2 COVID-19 2020-12-29 Completed [facility] MODERNA 12+ YRS 00:00:00 [place] [facility] SARS-COV-2 COVID-19 2020-12-29 Completed [facility] MODERNA 12+ YRS 00:00:00 [place] [facility] SARS-COV-2 COVID-19 2020-12-29 Completed [facility] MODERNA 12+ YRS 00:00:00 [place] [facility] SARS-COV-2 COVID-19 2020-12-29 Completed [facility] MODERNA 12+ YRS 00:00:00 [place] [facility] SARS-COV-2 COVID-19 2020-12-29 Completed [facility] MODERNA 12+ YRS 00:00:00 [place] [facility] SARS-COV-2 COVID-19 2020-12-29 Completed [facility] MODERNA 12+ YRS 00:00:00 [place] [facility] SARS-COV-2 COVID-19 2020-12-29 Completed [facility] MODERNA 12+ YRS 00:00:00 [place] [facility] SARS-COV-2 COVID-19 2020-12-29 Completed [facility] MODERNA 12+ YRS 00:00:00 [place] [facility] SARS-COV-2 COVID-19 2020-12-29 Completed [facility] MODERNA 12+ YRS 00:00:00 [place] [facility] SARS-COV-2 COVID-19 2020-12-29 Completed [facility] MODERNA 12+ YRS 00:00:00 [place] [facility] SARS-COV-2 COVID-19 2020-12-29 Completed [facility] MODERNA 12+ YRS 00:00:00 [place] [facility] SARS-COV-2 COVID-19 2020-12-29 Completed [facility]ERNA 12+ YRS 00:00:00 [place] [facility] SARS-COV-2 COVID-19 2020-12-29 Completed [facility] MODERNA 12+ YRS 00:00:00 [place] [facility] SARS-COV-2 COVID-19 2020-12-29 Completed [facility]ERNA 12+ YRS 00:00:00 [place] [facility] SARS-COV-2 COVID-19 2020-12-29 Completed [facility] MODERNA 12+ YRS 00:00:00 [place] [facility] SARS-COV-2 COVID-19 2020-12-29 Completed [facility] MODERNA 12+ YRS 00:00:00 [place] [facility] SARS-COV-2 COVID-19 2020-12-29 Completed [facility] MODERNA 12+ YRS 00:00:00 [place] [facility] SARS-COV-2 COVID-19 2020-12-29 Completed [facility] MODERNA 12+ YRS 00:00:00 [place] [facility] SARS-COV-2 COVID-19 2020-12-29 Completed [facility] MODERNA 12+ YRS 00:00:00 [place] [facility] SARS-COV-2 COVID-19 2020-12-29 Completed [facility] MODERNA 12+ YRS 00:00:00 [place] [facility] SARS-COV-2 COVID-19 2020-12-29 Completed [facility] MODERNA 12+ YRS 00:00:00 [place] [facility] SARS-COV-2 COVID-19 2020-12-29 Completed [facility] MODERNA 12+ YRS 00:00:00 [place] [facility] SARS-COV-2 COVID-19 2020-12-29 Completed [facility]ERNA 12+ YRS 00:00:00 [place] [facility] SARS-COV-2 COVID-19 2020-12-29 Completed [facility]ERNA 12+ YRS 00:00:00 [place] [facility] SARS-COV-2 COVID-19 2020-12-29 Completed [facility]ERNA 12+ YRS 00:00:00 [place] [facility] SARS-COV-2 COVID-19 2020-12-29 Completed [facility] MODERNA 12+ YRS 00:00:00 [place] [facility] SARS-COV-2 COVID-19 2020-12-29 Completed [facility]ERNA 12+ YRS 00:00:00 [place] [facility] SARS-COV-2 COVID-19 2020-12-29 Completed [facility] MODERNA 12+ YRS 00:00:00 [place] [facility] SARS-COV-2 COVID-19 2020-12-29 Completed [facility] MODERNA 12+ YRS 00:00:00 [place] [facility] SARS-COV-2 COVID-19 2020-12-29 Completed [facility] MODERNA 12+ YRS 00:00:00 [place] [facility] SARS-COV-2 COVID-19 2020-12-29 Completed [facility]ERNA 12+ YRS 00:00:00 [place] [facility] SARS-COV-2 COVID-19 2020-12-29 Completed [facility] MODERNA 12+ YRS 00:00:00 [place] [facility] SARS-COV-2 COVID-19 2020-12-29 Completed [facility]ERNA 12+ YRS 00:00:00 [place] [facility] SARS-COV-2 COVID-19 2020-12-29 Completed [facility] MODERNA 12+ YRS 00:00:00 [place] [facility] SARS-COV-2 COVID-19 2020-12-29 Completed [facility] MODERNA 12+ YRS 00:00:00 [place] [facility] SARS-COV-2 COVID-19 2020-12-29 Completed [facility] MODERNA 12+ YRS 00:00:00 [place] [facility] SARS-COV-2 COVID-19 2020-12-29 Completed [facility]ER[facility] 12+ YRS 00:00:00 [place] [facility] SARS-COV-2 COVID-19 2020-12-29 Completed [facility]ERNA 12+ YRS 00:00:00 [place] [facility] SARS-COV-2 COVID-19 2020-12-29 Completed [facility]ERNA 12+ YRS 00:00:00 [place] [facility] SARS-COV-2 COVID-19 2020-12-29 Completed [facility]ERNA 12+ YRS 00:00:00 [place] [facility] SARS-COV-2 COVID-19 2020-12-29 Completed [facility] MODERNA 12+ YRS 00:00:00 [place] [facility] SARS-COV-2 COVID-19 2020-12-29 Completed [facility] MODERNA 12+ YRS 00:00:00 [place] [facility] SARS-COV-2 COVID-19 2020-12-29 Completed [facility] MODERNA 12+ YRS 00:00:00 [place] [facility] SARS-COV-2 COVID-19 2020-12-29 Completed [facility] MODERNA 12+ YRS 00:00:00 [place] [facility] SARS-COV-2 COVID-19 2020-12-29 Completed [facility] MODERNA 12+ YRS 00:00:00 [place] [facility] SARS-COV-2 COVID-19 2020-12-29 Completed [facility] MODERNA 12+ YRS 00:00:00 [place] [facility] SARS-COV-2 COVID-19 2020-12-29 Completed [facility] MODERNA 12+ YRS 00:00:00 [place] [facility] SARS-COV-2 COVID-19 2020-12-29 Completed [facility] MODERNA 12+ YRS 00:00:00 [place] [facility] SARS-COV-2 COVID-19 2020-12-29 Completed [facility] MODERNA 12+ YRS 00:00:00 [place] [facility] SARS-COV-2 COVID-19 2020-12-29 Completed [facility] MODERNA 12+ YRS 00:00:00 [place] [facility] SARS-COV-2 COVID-19 2020-12-29 Completed [facility] MODERNA 12+ YRS 00:00:00 [place] [facility] SARS-COV-2 COVID-19 2020-12-29 Completed [facility] MODERNA 12+ YRS 00:00:00 [place] [facility] SARS-COV-2 COVID-19 2020-12-29 Completed [facility] MODERNA 12+ YRS 00:00:00 [place] [facility] SARS-COV-2 COVID-19 2020-12-29 Completed [facility] MODERNA 12+ YRS 00:00:00 [place] [facility] SARS-COV-2 COVID-19 2020-12-29 Completed [facility] MODERNA 12+ YRS 00:00:00 [place] [facility] SARS-COV-2 COVID-19 2020-12-29 Completed [facility] MODERNA 12+ YRS 00:00:00 [place] [facility] SARS-COV-2 COVID-19 2020-12-29 Completed [facility] MODERNA 12+ YRS 00:00:00 [place] [facility] SARS-COV-2 COVID-19 2020-12-29 Completed [facility] MODERNA 12+ YRS 00:00:00 [place] [facility] SARS-COV-2 COVID-19 2020-12-29 Completed [facility] MODERNA 12+ YRS 00:00:00 [place] [facility] SARS-COV-2 COVID-19 2020-12-29 Completed [facility] MODERNA 12+ YRS 00:00:00 [place] [facility] SARS-COV-2 COVID-19 2020-12-29 Completed [facility] MODERNA 12+ YRS 00:00:00 [place] [facility] SARS-COV-2 COVID-19 2020-12-29 Completed [facility] MODERNA 12+ YRS 00:00:00 [place] [facility] SARS-COV-2 COVID-19 2020-12-29 Completed [facility] MODERNA 12+ YRS 00:00:00 [place] [facility] SARS-COV-2 COVID-19 2020-12-29 Completed [facility] MODERNA 12+ YRS 00:00:00 [place] [facility] SARS-COV-2 COVID-19 2020-12-29 Completed [facility] MODERNA 12+ YRS 00:00:00 [place] [facility] SARS-COV-2 COVID-19 2020-12-29 Completed [facility] MODERNA 12+ YRS 00:00:00 [place] [facility] SARS-COV-2 COVID-19 2020-12-29 Completed [facility] MODERNA 12+ YRS 00:00:00 [place] [facility] SARS-COV-2 COVID-19 2020-12-29 Completed [facility] MODERNA 12+ YRS 00:00:00 [place] [facility] SARS-COV-2 COVID-19 2020-12-29 Completed [facility] MODERNA 12+ YRS 00:00:00 [place] [facility] SARS-COV-2 COVID-19 2020-12-29 Completed [facility] MODERNA 12+ YRS 00:00:00 [place] [facility] SARS-COV-2 COVID-19 2020-12-29 Completed [facility] MODERNA 12+ YRS 00:00:00 [place] [facility] SARS-COV-2 COVID-19 2020-12-29 Completed [facility] MODERNA 12+ YRS 00:00:00 [place] [facility] SARS-COV-2 COVID-19 2020-12-29 Completed [facility] MODERNA 12+ YRS 00:00:00 [place] [facility] SARS-COV-2 COVID-19 2020-12-29 Completed [facility] MODERNA 12+ YRS 00:00:00 [place] [facility] SARS-COV-2 COVID-19 2020-12-29 Completed [facility] MODERNA 12+ YRS 00:00:00 [place] [facility] SARS-COV-2 COVID-19 2020-12-29 Completed [facility] MODERNA 12+ YRS 00:00:00 [place] [facility] SARS-COV-2 COVID-19 2020-12-29 Completed [facility] MODERNA 12+ YRS 00:00:00 [place] [facility] SARS-COV-2 COVID-19 2020-12-29 Completed [facility] MODERNA 12+ YRS 00:00:00 [place] [facility] SARS-COV-2 COVID-19 2020-12-29 Completed [facility] MODERNA 12+ YRS 00:00:00 [place] [facility] SARS-COV-2 COVID-19 2020-12-29 Completed [facility] MODERNA 12+ YRS 00:00:00 [place] [facility] SARS-COV-2 COVID-19 2020-12-29 Completed [facility] MODERNA 12+ YRS 00:00:00 [place] [facility] SARS-COV-2 COVID-19 2020-12-29 Completed [facility] MODERNA 12+ YRS 00:00:00 [place] [facility] SARS-COV-2 COVID-19 2020-12-29 Completed [facility] MODERNA 12+ YRS 00:00:00 [place] [facility] SARS-COV-2 COVID-19 2020-12-29 Completed [facility] MODERNA 12+ YRS 00:00:00 [place] [facility] SARS-COV-2 COVID-19 2020-12-29 Completed [facility] MODERNA 12+ YRS 00:00:00 [place] [facility] SARS-COV-2 COVID-19 2020-12-29 Completed [facility] MODERNA 12+ YRS 00:00:00 [place] [facility] SARS-COV-2 COVID-19 2020-12-29 Completed [facility] MODERNA 12+ YRS 00:00:00 [place] [facility] SARS-COV-2 COVID-19 2020-12-29 Completed [facility] MODERNA 12+ YRS 00:00:00 [place] [facility] SARS-COV-2 COVID-19 2020-12-29 Completed [facility] MODERNA 12+ YRS 00:00:00 [place] [facility] SARS-COV-2 COVID-19 2020-12-29 Completed [facility] MODERNA 12+ YRS 00:00:00 [place] [facility] SARS-COV-2 COVID-19 2020-12-29 Completed [facility] MODERNA 12+ YRS 00:00:00 [place] [facility] SARS-COV-2 COVID-19 2020-12-29 Completed [facility] MODERNA 12+ YRS 00:00:00 [place] [facility] SARS-COV-2 COVID-19 2020-12-29 Completed [facility] MODERNA 12+ YRS 00:00:00 [place] [facility] SARS-COV-2 COVID-19 2020-12-29 Completed [facility] MODERNA 12+ YRS 00:00:00 [place] [facility] SARS-COV-2 COVID-19 2020-12-29 Completed [facility] MODERNA 12+ YRS 00:00:00 [place] [facility] SARS-COV-2 COVID-19 2020-12-29 Completed [facility] MODERNA 12+ YRS 00:00:00 [place] [facility] SARS-COV-2 COVID-19 2020-12-29 Completed [facility] MODERNA 12+ YRS 00:00:00 [place] [facility] SARS-COV-2 COVID-19 2020-12-29 Completed [facility] MODERNA 12+ YRS 00:00:00 [place] [facility] SARS-COV-2 COVID-19 2020-12-29 Completed [facility] MODERNA 12+ YRS 00:00:00 [place] [facility] SARS-COV-2 COVID-19 2020-12-29 Completed [facility] MODERNA 12+ YRS 00:00:00 [place] [facility] SARS-COV-2 COVID-19 2020-12-29 Completed [facility] MODERNA 12+ YRS 00:00:00 [place] [facility] SARS-COV-2 COVID-19 2020-12-29 Completed [facility] MODERNA 12+ YRS 00:00:00 [place] [facility] SARS-COV-2 COVID-19 2020-12-29 Completed [facility] MODERNA 12+ YRS 00:00:00 [place] [facility] SARS-COV-2 COVID-19 2020-12-01 Completed [facility]ER[facility] VACCINE 00:00:00 [place] [facility] SARS-COV-2 COVID-19 2020-12-01 Completed [facility] VACCINE 00:00:00 [place] [facility] SARS-COV-2 COVID-19 2020-12-01 Completed [facility] MODERNA VACCINE 00:00:00 [place] [facility] SARS-COV-2 COVID-19 2020-12-01 Completed [facility]ER[facility] VACCINE 00:00:00 [place] [facility] SARS-COV-2 COVID-19 2020-12-01 Completed [facility] MODERNA VACCINE 00:00:00 [place] [facility] SARS-COV-2 COVID-19 2020-12-01 Completed [facility] MODERNA 12+ YRS 00:00:00 [place] [facility] SARS-COV-2 COVID-19 2020-12-01 Completed [facility] MODERNA 12+ YRS 00:00:00 [place] [facility] SARS-COV-2 COVID-19 2020-12-01 Completed [facility] MODERNA 12+ YRS 00:00:00 [place] [facility] SARS-COV-2 COVID-19 2020-12-01 Completed [facility] MODERNA 12+ YRS 00:00:00 [place] [facility] SARS-COV-2 COVID-19 2020-12-01 Completed [facility] MODERNA 12+ YRS 00:00:00 [place] [facility] SARS-COV-2 COVID-19 2020-12-01 Completed [facility] MODERNA 12+ YRS 00:00:00 [place] [facility] SARS-COV-2 COVID-19 2020-12-01 Completed [facility] MODERNA 12+ YRS 00:00:00 [place] [facility] SARS-COV-2 COVID-19 2020-12-01 Completed [facility] MODERNA 12+ YRS 00:00:00 [place] [facility] SARS-COV-2 COVID-19 2020-12-01 Completed [facility] MODERNA 12+ YRS 00:00:00 [place] [facility] SARS-COV-2 COVID-19 2020-12-01 Completed [facility] MODERNA 12+ YRS 00:00:00 [place] [facility] SARS-COV-2 COVID-19 2020-12-01 Completed [facility] MODERNA 12+ YRS 00:00:00 [place] [facility] SARS-COV-2 COVID-19 2020-12-01 Completed [facility] MODERNA 12+ YRS 00:00:00 [place] [facility] SARS-COV-2 COVID-19 2020-12-01 Completed [facility] MODERNA 12+ YRS 00:00:00 [place] [facility] SARS-COV-2 COVID-19 2020-12-01 Completed [facility] MODERNA 12+ YRS 00:00:00 [place] [facility] SARS-COV-2 COVID-19 2020-12-01 Completed [facility] MODERNA 12+ YRS 00:00:00 [place] [facility] SARS-COV-2 COVID-19 2020-12-01 Completed [facility] MODERNA 12+ YRS 00:00:00 [place] [facility] SARS-COV-2 COVID-19 2020-12-01 Completed [facility] MODERNA 12+ YRS 00:00:00 [place] [facility] SARS-COV-2 COVID-19 2020-12-01 Completed [facility] MODERNA 12+ YRS 00:00:00 [place] [facility] SARS-COV-2 COVID-19 2020-12-01 Completed [facility] MODERNA 12+ YRS 00:00:00 [place] [facility] SARS-COV-2 COVID-19 2020-12-01 Completed [facility] MODERNA 12+ YRS 00:00:00 [place] [facility] SARS-COV-2 COVID-19 2020-12-01 Completed [facility] MODERNA 12+ YRS 00:00:00 [place] [facility] SARS-COV-2 COVID-19 2020-12-01 Completed [facility] MODERNA 12+ YRS 00:00:00 [place] [facility] SARS-COV-2 COVID-19 2020-12-01 Completed [facility] MODERNA 12+ YRS 00:00:00 [place] [facility] SARS-COV-2 COVID-19 2020-12-01 Completed [facility] MODERNA 12+ YRS 00:00:00 [place] [facility] SARS-COV-2 COVID-19 2020-12-01 Completed [facility] MODERNA 12+ YRS 00:00:00 [place] [facility] SARS-COV-2 COVID-19 2020-12-01 Completed [facility] MODERNA 12+ YRS 00:00:00 [place] [facility] SARS-COV-2 COVID-19 2020-12-01 Completed [facility] MODERNA 12+ YRS 00:00:00 [place] [facility] SARS-COV-2 COVID-19 2020-12-01 Completed [facility] MODERNA 12+ YRS 00:00:00 [place] [facility] SARS-COV-2 COVID-19 2020-12-01 Completed [facility] MODERNA 12+ YRS 00:00:00 [place] [facility] SARS-COV-2 COVID-19 2020-12-01 Completed [facility] MODERNA 12+ YRS 00:00:00 [place] [facility] SARS-COV-2 COVID-19 2020-12-01 Completed [facility] MODERNA 12+ YRS 00:00:00 [place] [facility] SARS-COV-2 COVID-19 2020-12-01 Completed [facility] MODERNA 12+ YRS 00:00:00 [place] [facility] SARS-COV-2 COVID-19 2020-12-01 Completed [facility] MODERNA 12+ YRS 00:00:00 [place] [facility] SARS-COV-2 COVID-19 2020-12-01 Completed [facility] MODERNA 12+ YRS 00:00:00 [place] [facility] SARS-COV-2 COVID-19 2020-12-01 Completed [facility] MODERNA 12+ YRS 00:00:00 [place] [facility] SARS-COV-2 COVID-19 2020-12-01 Completed [facility] MODERNA 12+ YRS 00:00:00 [place] [facility] SARS-COV-2 COVID-19 2020-12-01 Completed [facility] MODERNA 12+ YRS 00:00:00 [place] [facility] SARS-COV-2 COVID-19 2020-12-01 Completed [facility] MODERNA 12+ YRS 00:00:00 [place] [facility] SARS-COV-2 COVID-19 2020-12-01 Completed [facility] MODERNA 12+ YRS 00:00:00 [place] [facility] SARS-COV-2 COVID-19 2020-12-01 Completed [facility] MODERNA 12+ YRS 00:00:00 [place] [facility] SARS-COV-2 COVID-19 2020-12-01 Completed [facility] MODERNA 12+ YRS 00:00:00 [place] [facility] SARS-COV-2 COVID-19 2020-12-01 Completed [facility] MODERNA 12+ YRS 00:00:00 [place] [facility] SARS-COV-2 COVID-19 2020-12-01 Completed [facility] MODERNA 12+ YRS 00:00:00 [place] [facility] SARS-COV-2 COVID-19 2020-12-01 Completed [facility] MODERNA 12+ YRS 00:00:00 [place] [facility] SARS-COV-2 COVID-19 2020-12-01 Completed [facility] MODERNA 12+ YRS 00:00:00 [place] [facility] SARS-COV-2 COVID-19 2020-12-01 Completed [facility] MODERNA 12+ YRS 00:00:00 [place] [facility] SARS-COV-2 COVID-19 2020-12-01 Completed [facility] MODERNA 12+ YRS 00:00:00 [place] [facility] SARS-COV-2 COVID-19 2020-12-01 Completed [facility] MODERNA 12+ YRS 00:00:00 [place] [facility] SARS-COV-2 COVID-19 2020-12-01 Completed [facility] MODERNA 12+ YRS 00:00:00 [place] [facility] SARS-COV-2 COVID-19 2020-12-01 Completed [facility] MODERNA 12+ YRS 00:00:00 [place] [facility] SARS-COV-2 COVID-19 2020-12-01 Completed [facility] MODERNA 12+ YRS 00:00:00 [place] [facility] SARS-COV-2 COVID-19 2020-12-01 Completed [facility] MODERNA 12+ YRS 00:00:00 [place] [facility] SARS-COV-2 COVID-19 2020-12-01 Completed [facility] MODERNA 12+ YRS 00:00:00 [place] [facility] SARS-COV-2 COVID-19 2020-12-01 Completed [facility] MODERNA 12+ YRS 00:00:00 [place] [facility] SARS-COV-2 COVID-19 2020-12-01 Completed [facility] MODERNA 12+ YRS 00:00:00 [place] [facility] SARS-COV-2 COVID-19 2020-12-01 Completed [facility] MODERNA 12+ YRS 00:00:00 [place] [facility] SARS-COV-2 COVID-19 2020-12-01 Completed [facility] MODERNA 12+ YRS 00:00:00 [place] [facility] SARS-COV-2 COVID-19 2020-12-01 Completed [facility] MODERNA 12+ YRS 00:00:00 [place] [facility] SARS-COV-2 COVID-19 2020-12-01 Completed [facility] MODERNA 12+ YRS 00:00:00 [place] [facility] SARS-COV-2 COVID-19 2020-12-01 Completed [facility] MODERNA 12+ YRS 00:00:00 [place] [facility] SARS-COV-2 COVID-19 2020-12-01 Completed [facility] MODERNA 12+ YRS 00:00:00 [place] [facility] SARS-COV-2 COVID-19 2020-12-01 Completed [facility] MODERNA 12+ YRS 00:00:00 [place] [facility] SARS-COV-2 COVID-19 2020-12-01 Completed [facility] MODERNA 12+ YRS 00:00:00 [place] [facility] SARS-COV-2 COVID-19 2020-12-01 Completed [facility] MODERNA 12+ YRS 00:00:00 [place] [facility] SARS-COV-2 COVID-19 2020-12-01 Completed [facility] MODERNA 12+ YRS 00:00:00 [place] [facility] SARS-COV-2 COVID-19 2020-12-01 Completed [facility] MODERNA 12+ YRS 00:00:00 [place] [facility] SARS-COV-2 COVID-19 2020-12-01 Completed [facility] MODERNA 12+ YRS 00:00:00 [place] [facility] SARS-COV-2 COVID-19 2020-12-01 Completed [facility] MODERNA 12+ YRS 00:00:00 [place] [facility]INE [facility] SARS-COV-2 COVID-19 2020-12-01 Completed [facility] 12+ YRS 00:00:00 [place] [facility]ACC[facility] SARS-COV-2 COVID-19 2020-12-01 Completed [facility] 12+ YRS 00:00:00 [place] [facility]ACCINE [facility] SARS-COV-2 COVID-19 2020-12-01 Completed [facility] 12+ YRS 00:00:00 [place] [facility]ACCINE [facility] SARS-COV-2 COVID-19 2020-12-01 Completed [facility] 12+ YRS 00:00:00 [place] [facility]ACCINE [facility] SARS-COV-2 COVID-19 2020-12-01 Completed [facility] 12+ YRS 00:00:00 [place] [facility]ACCINE [facility] SARS-COV-2 COVID-19 2020-12-01 Completed [facility] 12+ YRS 00:00:00 [place] [facility]ACCINE [facility] SARS-COV-2 COVID-19 2020-12-01 Completed [facility] 12+ YRS 00:00:00 [place] [facility]ACCINE [facility] SARS-COV-2 COVID-19 2020-12-01 Completed [facility] 12+ YRS 00:00:00 [place] [facility]ACC[facility] SARS-COV-2 COVID-19 2020-12-01 Completed [facility] 12+ YRS 00:00:00 [place] [facility]ACC[facility] SARS-COV-2 COVID-19 2020-12-01 Completed [facility] 12+ YRS 00:00:00 [place] [facility]ACC[facility] SARS-COV-2 COVID-19 2020-12-01 Completed [facility] 12+ YRS 00:00:00 [place] [facility]ACCINE [facility] SARS-COV-2 COVID-19 2020-12-01 Completed [facility] 12+ YRS 00:00:00 [place] [facility]ACC[facility] SARS-COV-2 COVID-19 2020-12-01 Completed [facility] 12+ YRS 00:00:00 [place] [facility]ACCINE [facility] SARS-COV-2 COVID-19 2020-12-01 Completed [facility] 12+ YRS 00:00:00 [place] [facility]ACC[facility] SARS-COV-2 COVID-19 2020-12-01 Completed [facility] 12+ YRS 00:00:00 [place] [facility]ACC[facility] SARS-COV-2 COVID-19 2020-12-01 Completed [facility] 12+ YRS 00:00:00 [place] [facility]ACCINE [facility] SARS-COV-2 COVID-19 2020-12-01 Completed [facility] 12+ YRS 00:00:00 [place] [facility]ACCINE [facility] SARS-COV-2 COVID-19 2020-12-01 Completed [facility] 12+ YRS 00:00:00 [place] [facility]ACCINE [facility] SARS-COV-2 COVID-19 2020-12-01 Completed [facility] 12+ YRS 00:00:00 [place] [facility] ical VACCINE Branch SARS-COV-2 COVID-19 2020-12-01 Completed [facility] MODERNA 12+ YRS 00:00:00 [place] [facility] SARS-COV-2 COVID-19 2020-12-01 Completed [facility] of MODERNA 12+ YRS 00:00:00 [place] [facility] V[facility] SARS-COV-2 COVID-19 2020-12-01 Completed [facility] of MODERNA 12+ YRS 00:00:00 [place] [facility] SARS-COV-2 COVID-19 2020-12-01 Completed [facility] of MODERNA 12+ YRS 00:00:00 [place] [facility] VACCINE [facility] SARS-COV-2 COVID-19 2020-12-01 Completed [facility] of MODERNA 12+ YRS 00:00:00 [place] [facility] VACCINE [facility] SARS-COV-2 COVID-19 2020-12-01 Completed [facility] of MODERNA 12+ YRS 00:00:00 [place] [facility] VACCINE [facility] SARS-COV-2 COVID-19 2020-12-01 Completed [facility] of MODERNA 12+ YRS 00:00:00 [place] [facility] VACCINE [facility] SARS-COV-2 COVID-19 2020-12-01 Completed [facility] of MODERNA 12+ YRS 00:00:00 [place] [facility] VACCINE [facility] SARS-COV-2 COVID-19 2020-12-01 Completed [facility] of MODERNA 12+ YRS 00:00:00 [place] [facility] VACCINE [facility] SARS-COV-2 COVID-19 2020-12-01 Completed [facility] of MODERNA 12+ YRS 00:00:00 [place] [facility] VACCINE [facility] SARS-COV-2 COVID-19 2020-12-01 Completed [facility] of MODERNA 12+ YRS 00:00:00 [place] [facility] VACCINE [facility] SARS-COV-2 COVID-19 2020-12-01 Completed [facility] of MODERNA 12+ YRS 00:00:00 [place] [facility] VACCINE [facility] SARS-COV-2 COVID-19 2020-12-01 Completed [facility] of MODERNA 12+ YRS 00:00:00 [place] [facility] VACCINE [facility] SARS-COV-2 COVID-19 2020-12-01 Completed [facility] of MODERNA 12+ YRS 00:00:00 [place] [facility] VACCINE [facility] SARS-COV-2 COVID-19 2020-12-01 Completed [facility] of MODERNA 12+ YRS 00:00:00 [place] [facility] VACCINE [facility] SARS-COV-2 COVID-19 2020-12-01 Completed [facility] of MODERNA 12+ YRS 00:00:00 [place] [facility] VACCINE [facility] SARS-COV-2 COVID-19 2020-12-01 Completed [facility] of MODERNA 12+ YRS 00:00:00 [place] [facility] VACCINE [facility] SARS-COV-2 COVID-19 2020-12-01 Completed [facility] of MODERNA 12+ YRS 00:00:00 [place] [facility] VACCINE [facility] SARS-COV-2 COVID-19 2020-12-01 Completed [facility] of MODERNA 12+ YRS 00:00:00 [place] [facility] VACCINE [facility] SARS-COV-2 COVID-19 2020-12-01 Completed [facility] of MODERNA 12+ YRS 00:00:00 [place] [facility] VACCINE [facility] SARS-COV-2 COVID-19 2020-12-01 Completed [facility] of MODERNA 12+ YRS 00:00:00 [place] [facility] VACCINE [facility] SARS-COV-2 COVID-19 2020-12-01 Completed [facility] of MODERNA 12+ YRS 00:00:00 [facility] VACCINE [place] Influenza High Dose 2020-10-05 Completed Unive [facility]ity of 00:00:00 [facility] Influenza High Dose 2020-10-05 Completed [facility] of [place] 00:00:00 [facility] Pneumococcal 13 2020-10-05 Completed Universit y of Conjugate, PCV13 00:00:00 [facility] dical (Prevnar 13) Branch Influenza High Dose 2020-10-05 Completed [facility]ive [facility]ity of 00:00:00 [facility] Influenza High Dose 2020-10-05 Completed [facility] 00:00:00 [facility] Pneumococcal 13 2020-10-05 Completed Universit y of Conjugate, PCV13 00:00:00 [facility] dical (Prevnar 13) Branch Influenza High Dose 2020-10-05 Completed [facility]ive rsity of 00:00:00 [facility] Influenza High Dose 2020-10-05 Completed [facility] of [facility] 00:00:00 [facility] Pneumococcal 13 2020-10-05 Completed Universit y of Conjugate, PCV13 00:00:00 [facility] dical (Prevnar 13) Branch Influenza High Dose 2020-10-05 Completed [facility]ive rsity of 00:00:00 [facility] Influenza High Dose 2020-10-05 Completed [facility] of [facility] 00:00:00 [facility] Pneumococcal 13 2020-10-05 Completed Universit y of Conjugate, PCV13 00:00:00 [facility] dical (Prevnar 13) Branch Influenza High Dose 2020-10-05 Completed [facility]ive rsity of 00:00:00 [facility] Influenza High Dose 2020-10-05 Completed [facility] of [facility] 00:00:00 [facility] Pneumococcal 13 2020-10-05 Completed Universit y of Conjugate, PCV13 00:00:00 [facility] dical (Prevnar 13) Branch Influenza High Dose 2020-10-05 Completed [facility]ive rsity of 00:00:00 [facility] Influenza High Dose 2020-10-05 Completed [facility] of [facility] 00:00:00 [facility] Pneumococcal 13 2020-10-05 Completed Universit y of Conjugate, PCV13 00:00:00 [facility] dical (Prevnar 13) Branch Influenza High Dose 2020-10-05 Completed [facility]ive rsity of 00:00:00 [facility] Influenza High Dose 2020-10-05 Completed [facility] of [facility] 00:00:00 [facility] Pneumococcal 13 2020-10-05 Completed Universit y of Conjugate, PCV13 00:00:00 [place] [facility] (Prevnar 13) Branch Influenza High Dose 2020-10-05 Completed [facility]ive rsity of 00:00:00 [facility] Influenza High Dose 2020-10-05 Completed [facility] of [facility] 00:00:00 [facility] Pneumococcal 13 2020-10-05 Completed Universit y of Conjugate, PCV13 00:00:00 [facility] dical (Prevnar 13) Branch Influenza High Dose 2020-10-05 Completed Unive rsity of 00:00:00 [facility] Influenza High Dose 2020-10-05 Completed [facility] of [place] 00:00:00 [facility] Pneumococcal 13 2020-10-05 Completed Universit y of Conjugate, PCV13 00:00:00 [facility] dical (Prevnar 13) Branch Influenza High Dose 2020-10-05 Completed Unive rsity of 00:00:00 [facility] Influenza High Dose 2020-10-05 Completed [facility] of [facility] 00:00:00 [facility] Pneumococcal 13 2020-10-05 Completed Universit y of Conjugate, PCV13 00:00:00 [facility] dical (Prevnar 13) Branch Influenza High Dose 2020-10-05 Completed Unive rsity of 00:00:00 [facility] Influenza High Dose 2020-10-05 Completed [facility] of [facility] 00:00:00 [facility] Pneumococcal 13 2020-10-05 Completed Universit y of Conjugate, PCV13 00:00:00 [place] [facility] (Prevnar 13) Branch Influenza High Dose 2020-10-05 Completed Unive rsity of 00:00:00 [facility] Influenza High Dose 2020-10-05 Completed [facility] of [facility] 00:00:00 [facility] Pneumococcal 13 2020-10-05 Completed Universit y of Conjugate, PCV13 00:00:00 [place] [facility] (Prevnar 13) Branch Influenza High Dose 2020-10-05 Completed [facility]ive rsity of 00:00:00 [facility] Influenza High Dose 2020-10-05 Completed [facility] of [facility] 00:00:00 [facility] Pneumococcal 13 2020-10-05 Completed Universit y of Conjugate, PCV13 00:00:00 [place] [facility] (Prevnar 13) Branch Influenza High Dose 2020-10-05 Completed Unive rsity of 00:00:00 [facility] Influenza High Dose 2020-10-05 Completed [facility] of [facility] 00:00:00 [facility] Pneumococcal 13 2020-10-05 Completed Universit y of Conjugate, PCV13 00:00:00 [place] [facility] (Prevnar 13) Branch Influenza High Dose 2020-10-05 Completed Unive rsity of 00:00:00 [facility] Influenza High Dose 2020-10-05 Completed [facility] of [facility] 00:00:00 [facility] Pneumococcal 13 2020-10-05 Completed Universit y of Conjugate, PCV13 00:00:00 [place] [facility] (Prevnar 13) Branch Influenza High Dose 2020-10-05 Completed Unive rsity of 00:00:00 [facility] Influenza High Dose 2020-10-05 Completed [facility] of [facility] 00:00:00 [facility] Pneumococcal 13 2020-10-05 Completed Universit y of Conjugate, PCV13 00:00:00 [place] [facility] (Prevnar 13) Branch Influenza High Dose 2020-10-05 Completed Unive rsity of 00:00:00 [facility] Influenza High Dose 2020-10-05 Completed [facility] of [facility] 00:00:00 [facility] Pneumococcal 13 2020-10-05 Completed Universit y of Conjugate, PCV13 00:00:00 [place] [facility] (Prevnar 13) Branch Influenza High Dose 2020-10-05 Completed Unive rsity of 00:00:00 [facility] Influenza High Dose 2020-10-05 Completed [facility] of [facility] 00:00:00 [facility] Pneumococcal 13 2020-10-05 Completed Universit y of Conjugate, PCV13 00:00:00 [place] [facility] (Prevnar 13) Branch Influenza High Dose 2020-10-05 Completed Unive rsity of 00:00:00 [facility] Influenza High Dose 2020-10-05 Completed [facility] of [facility] 00:00:00 [facility] Pneumococcal 13 2020-10-05 Completed Universit y of Conjugate, PCV13 00:00:00 [place] [facility] (Prevnar 13) Branch Influenza High Dose 2020-10-05 Completed Unive rsity of 00:00:00 [facility] Influenza High Dose 2020-10-05 Completed [facility] of [facility] 00:00:00 [facility] Pneumococcal 13 2020-10-05 Completed Universit y of Conjugate, PCV13 00:00:00 [facility] dical (Prevnar 13) Branch Influenza High Dose 2020-10-05 Completed Unive rsity of 00:00:00 [facility] Influenza High Dose 2020-10-05 Completed [facility] of [facility] 00:00:00 [facility] Pneumococcal 13 2020-10-05 Completed Universit y of Conjugate, PCV13 00:00:00 [facility] dical (Prevnar 13) Branch Influenza High Dose 2020-10-05 Completed Unive rsity of 00:00:00 [facility] Influenza High Dose 2020-10-05 Completed [facility] of [facility] 00:00:00 [facility] Pneumococcal 13 2020-10-05 Completed Universit y of Conjugate, PCV13 00:00:00 [facility] dical (Prevnar 13) Branch Influenza High Dose 2020-10-05 Completed Unive rsity of 00:00:00 [facility] Influenza High Dose 2020-10-05 Completed [facility] of [facility] 00:00:00 [facility] Pneumococcal 13 2020-10-05 Completed Universit y of Conjugate, PCV13 00:00:00 [facility] dical (Prevnar 13) Branch Influenza High Dose 2020-10-05 Completed Unive rsity of 00:00:00 [facility] Influenza High Dose 2020-10-05 Completed [facility] of [facility] 00:00:00 [facility] Pneumococcal 13 2020-10-05 Completed Universit y of Conjugate, PCV13 00:00:00 [facility] dical (Prevnar 13) Branch Influenza High Dose 2020-10-05 Completed Unive rsity of 00:00:00 [facility] Influenza High Dose 2020-10-05 Completed [facility] of [facility] 00:00:00 [facility] Pneumococcal 13 2020-10-05 Completed Universit y of Conjugate, PCV13 00:00:00 [facility] dical (Prevnar 13) Branch Influenza High Dose 2020-10-05 Completed Unive rsity of 00:00:00 [facility] Influenza High Dose 2020-10-05 Completed [facility] of [facility] 00:00:00 [facility] Pneumococcal 13 2020-10-05 Completed Universit y of Conjugate, PCV13 00:00:00 [place] [facility] (Prevnar 13) Branch Influenza High Dose 2020-10-05 Completed Unive rsity of 00:00:00 [facility] Influenza High Dose 2020-10-05 Completed [facility] of [facility] 00:00:00 [facility] Pneumococcal 13 2020-10-05 Completed Universit y of Conjugate, PCV13 00:00:00 [place] [facility] (Prevnar 13) Branch Influenza High Dose 2020-10-05 Completed Unive rsity of 00:00:00 [facility] Influenza High Dose 2020-10-05 Completed [facility]ive [facility] of [facility] 00:00:00 [facility] Pneumococcal 13 2020-10-05 Completed Universit y of Conjugate, PCV13 00:00:00 [place] [facility] (Prevnar 13) Branch Influenza High Dose 2020-10-05 Completed Unive rsity of 00:00:00 [facility] Influenza High Dose 2020-10-05 Completed [facility] of [facility] 00:00:00 [facility] Pneumococcal 13 2020-10-05 Completed Universit y of Conjugate, PCV13 00:00:00 [place] [facility] (Prevnar 13) Branch Influenza High Dose 2020-10-05 Completed Unive rsity of 00:00:00 [facility] Influenza High Dose 2020-10-05 Completed [facility] of [facility] 00:00:00 [facility] Pneumococcal 13 2020-10-05 Completed Universit y of Conjugate, PCV13 00:00:00 [place] [facility] (Prevnar 13) Branch Influenza High Dose 2020-10-05 Completed Unive rsity of 00:00:00 [facility] Influenza High Dose 2020-10-05 Completed [facility]ive [facility] of [facility] 00:00:00 [facility] Pneumococcal 13 2020-10-05 Completed Universit y of Conjugate, PCV13 00:00:00 [place] [facility] (Prevnar 13) Branch Influenza High Dose 2020-10-05 Completed Unive rsity of 00:00:00 [facility] Influenza High Dose 2020-10-05 Completed [facility] of [facility] 00:00:00 [facility] Pneumococcal 13 2020-10-05 Completed Universit y of Conjugate, PCV13 00:00:00 [place] [facility] (Prevnar 13) Branch Influenza High Dose 2020-10-05 Completed Unive rsity of 00:00:00 [facility] Influenza High Dose 2020-10-05 Completed [facility] of [facility] 00:00:00 [facility] Pneumococcal 13 2020-10-05 Completed Universit y of Conjugate, PCV13 00:00:00 [place] [facility] (Prevnar 13) Branch Influenza High Dose 2020-10-05 Completed Unive rsity of 00:00:00 [facility] Influenza High Dose 2020-10-05 Completed [facility] of [facility] 00:00:00 [facility] Pneumococcal 13 2020-10-05 Completed Universit y of Conjugate, PCV13 00:00:00 [place] [facility] (Prevnar 13) Branch Influenza High Dose 2020-10-05 Completed Unive rsity of 00:00:00 [facility] Influenza High Dose 2020-10-05 Completed [facility] of [facility] 00:00:00 [facility] Pneumococcal 13 2020-10-05 Completed Universit y of Conjugate, PCV13 00:00:00 [place] [facility] (Prevnar 13) Branch Influenza High Dose 2020-10-05 Completed Unive rsity of 00:00:00 [facility] Influenza High Dose 2020-10-05 Completed [facility] of [facility] 00:00:00 [facility] Pneumococcal 13 2020-10-05 Completed Universit y of Conjugate, PCV13 00:00:00 [place] [facility] (Prevnar 13) Branch Influenza High Dose 2020-10-05 Completed Unive rsity of 00:00:00 [facility] Influenza High Dose 2020-10-05 Completed [facility] of [facility] 00:00:00 [facility] Pneumococcal 13 2020-10-05 Completed Universit y of Conjugate, PCV13 00:00:00 [place] [facility] (Prevnar 13) Branch Influenza High Dose 2020-10-05 Completed Unive rsity of 00:00:00 [facility] Influenza High Dose 2020-10-05 Completed [facility] of [facility] 00:00:00 [facility] Pneumococcal 13 2020-10-05 Completed Universit y of Conjugate, PCV13 00:00:00 [place] [facility] (Prevnar 13) Branch Influenza High Dose 2020-10-05 Completed Unive rsity of 00:00:00 [facility] Influenza High Dose 2020-10-05 Completed [facility] of [facility] 00:00:00 [facility] Pneumococcal 13 2020-10-05 Completed Universit y of Conjugate, PCV13 00:00:00 [place] [facility] (Prevnar 13) Branch Influenza High Dose 2020-10-05 Completed Unive rsity of 00:00:00 [facility] Influenza High Dose 2020-10-05 Completed [facility] of [facility] 00:00:00 [facility] Pneumococcal 13 2020-10-05 Completed Universit y of Conjugate, PCV13 00:00:00 [facility] dical (Prevnar 13) Branch Influenza High Dose 2020-10-05 Completed Unive rsity of 00:00:00 [facility] Influenza High Dose 2020-10-05 Completed [facility] of [facility] 00:00:00 [facility] Pneumococcal 13 2020-10-05 Completed Universit y of Conjugate, PCV13 00:00:00 [facility] dical (Prevnar 13) Branch Influenza High Dose 2020-10-05 Completed Unive rsity of 00:00:00 [facility] Influenza High Dose 2020-10-05 Completed [facility] of [facility] 00:00:00 [facility] Pneumococcal 13 2020-10-05 Completed Universit y of Conjugate, PCV13 00:00:00 [facility] dical (Prevnar 13) Branch Influenza High Dose 2020-10-05 Completed Unive rsity of 00:00:00 [facility] Influenza High Dose 2020-10-05 Completed [facility]ive [facility] of [facility] 00:00:00 [facility] Pneumococcal 13 2020-10-05 Completed Universit y of Conjugate, PCV13 00:00:00 [facility] dical (Prevnar 13) Branch Influenza High Dose 2020-10-05 Completed Unive rsity of 00:00:00 [facility] Influenza High Dose 2020-10-05 Completed [facility]ive [facility] of [facility] 00:00:00 [facility] Pneumococcal 13 2020-10-05 Completed Universit y of Conjugate, PCV13 00:00:00 [facility] dical (Prevnar 13) Branch Influenza High Dose 2020-10-05 Completed Unive rsity of 00:00:00 [facility] Influenza High Dose 2020-10-05 Completed [facility] of [facility] 00:00:00 [facility] Pneumococcal 13 2020-10-05 Completed Universit y of Conjugate, PCV13 00:00:00 [facility] dical (Prevnar 13) Branch Influenza High Dose 2020-10-05 Completed Unive rsity of 00:00:00 [facility] Influenza High Dose 2020-10-05 Completed [facility] of [facility] 00:00:00 [facility] Pneumococcal 13 2020-10-05 Completed Universit y of Conjugate, PCV13 00:00:00 [place] [facility] (Prevnar 13) Branch Influenza High Dose 2020-10-05 Completed Unive rsity of 00:00:00 [facility] Influenza High Dose 2020-10-05 Completed [facility] of [facility] 00:00:00 [facility] Pneumococcal 13 2020-10-05 Completed Universit y of Conjugate, PCV13 00:00:00 [place] [facility] (Prevnar 13) Branch Influenza High Dose 2020-10-05 Completed Unive rsity of 00:00:00 [facility] Influenza High Dose 2020-10-05 Completed [facility] of [facility] 00:00:00 [facility] Pneumococcal 13 2020-10-05 Completed Universit y of Conjugate, PCV13 00:00:00 [place] [facility] (Prevnar 13) Branch Influenza High Dose 2020-10-05 Completed Unive rsity of 00:00:00 [facility] Influenza High Dose 2020-10-05 Completed [facility] of [facility] 00:00:00 [facility] Pneumococcal 13 2020-10-05 Completed Universit y of Conjugate, PCV13 00:00:00 [place] [facility] (Prevnar 13) Branch Influenza High Dose 2020-10-05 Completed Unive rsity of 00:00:00 [facility] Influenza High Dose 2020-10-05 Completed [facility] of [facility] 00:00:00 [facility] Pneumococcal 13 2020-10-05 Completed Universit y of Conjugate, PCV13 00:00:00 [place] [facility] (Prevnar 13) Branch Influenza High Dose 2020-10-05 Completed Unive rsity of 00:00:00 [facility] Influenza High Dose 2020-10-05 Completed [facility] of [facility] 00:00:00 [facility] Pneumococcal 13 2020-10-05 Completed Universit y of Conjugate, PCV13 00:00:00 [place] [facility] (Prevnar 13) Branch Influenza High Dose 2020-10-05 Completed Unive rsity of 00:00:00 [facility] Influenza High Dose 2020-10-05 Completed [facility] of [facility] 00:00:00 [facility] Pneumococcal 13 2020-10-05 Completed Universit y of Conjugate, PCV13 00:00:00 [place] [facility] (Prevnar 13) Branch Influenza High Dose 2020-10-05 Completed Unive rsity of 00:00:00 [facility] Influenza High Dose 2020-10-05 Completed [facility] of [facility] 00:00:00 [facility] Pneumococcal 13 2020-10-05 Completed Universit y of Conjugate, PCV13 00:00:00 [place] [facility] (Prevnar 13) Branch Influenza High Dose 2020-10-05 Completed Unive rsity of 00:00:00 [facility] Influenza High Dose 2020-10-05 Completed [facility] of [facility] 00:00:00 [facility] Pneumococcal 13 2020-10-05 Completed Universit y of Conjugate, PCV13 00:00:00 [facility] dical (Prevnar 13) Branch Influenza High Dose 2020-10-05 Completed Unive rsity of 00:00:00 [facility] Influenza High Dose 2020-10-05 Completed [facility] of [facility] 00:00:00 [facility] Pneumococcal 13 2020-10-05 Completed Universit y of Conjugate, PCV13 00:00:00 [facility] dical (Prevnar 13) Branch Influenza High Dose 2020-10-05 Completed Unive rsity of 00:00:00 [facility] Influenza High Dose 2020-10-05 Completed [facility] of [place] 00:00:00 [facility] Pneumococcal 13 2020-10-05 Completed Universit y of Conjugate, PCV13 00:00:00 [facility] dical (Prevnar 13) Branch Influenza High Dose 2020-10-05 Completed Unive rsity of 00:00:00 [facility] Influenza High Dose 2020-10-05 Completed [facility] of [facility] 00:00:00 [facility] Pneumococcal 13 2020-10-05 Completed Universit y of Conjugate, PCV13 00:00:00 [facility] dical (Prevnar 13) Branch Influenza High Dose 2020-10-05 Completed Unive rsity of 00:00:00 [facility] Influenza High Dose 2020-10-05 Completed [facility] of [place] 00:00:00 [facility] Pneumococcal 13 2020-10-05 Completed Universit y of Conjugate, PCV13 00:00:00 [place] [facility] (Prevnar 13) Branch Influenza High Dose 2020-10-05 Completed [facility]ive rsity of 00:00:00 [facility] Influenza High Dose 2020-10-05 Completed [facility] of [facility] 00:00:00 [facility] Pneumococcal 13 2020-10-05 Completed Universit y of Conjugate, PCV13 00:00:00 [place] [facility] (Prevnar 13) Branch Influenza High Dose 2020-10-05 Completed [facility]ive rsity of 00:00:00 [facility] Influenza High Dose 2020-10-05 Completed [facility] of [facility] 00:00:00 [facility] Pneumococcal 13 2020-10-05 Completed Universit y of Conjugate, PCV13 00:00:00 [place] [facility] (Prevnar 13) Branch Influenza High Dose 2020-10-05 Completed [facility]ive rsity of 00:00:00 [facility] Influenza High Dose 2020-10-05 Completed [facility] 00:00:00 [facility] Pneumococcal 13 2020-10-05 Completed [facility] Conjugate, PCV13 00:00:00 [place] [facility] (Prevnar 13) Branch Influenza High Dose 2020-10-05 Completed [facility] 00:00:00 [facility] Influenza High Dose 2020-10-05 Completed [facility] 00:00:00 [facility] Pneumococcal 13 2020-10-05 Completed [facility] Conjugate, PCV13 00:00:00 [facility] (Prevnar 13) Branch Influenza High Dose 2020-10-05 Completed [facility] 00:00:00 [facility] Influenza High Dose 2020-10-05 Completed [facility] 00:00:00 [facility] Pneumococcal 13 2020-10-05 Completed [facility] Conjugate, PCV13 00:00:00 [facility] (Prevnar 13) Branch Influenza High Dose 2020-10-05 Completed [facility] 00:00:00 [facility] Influenza High Dose 2020-10-05 Completed [facility] 00:00:00 [facility] Pneumococcal 13 2020-10-05 Completed [facility] Conjugate, PCV13 00:00:00 [facility] (Prevnar 13) Branch Influenza High Dose 2020-10-05 Completed [facility] 00:00:00 [facility] Influenza High Dose 2020-10-05 Completed [facility] 00:00:00 [facility] Pneumococcal 13 2020-10-05 Completed [facility] Conjugate, PCV13 00:00:00 [facility] (Prevnar 13) Branch Influenza High Dose 2020-10-05 Completed [facility] 00:00:00 [facility] Influenza High Dose 2020-10-05 Completed [facility] 00:00:00 [facility] Pneumococcal 13 2020-10-05 Completed [facility] Conjugate, PCV13 00:00:00 [facility] dical (Prevnar 13) Branch Influenza High Dose 2020-10-05 Completed [facility] 00:00:00 [facility] Influenza High Dose 2020-10-05 Completed [facility] 00:00:00 [facility] Pneumococcal 13 2020-10-05 Completed [facility] Conjugate, PCV13 00:00:00 [facility] dical (Prevnar 13) Branch Influenza High Dose 2020-10-05 Completed [facility] 00:00:00 [facility] Influenza High Dose 2020-10-05 Completed [facility] 00:00:00 [facility] Pneumococcal 13 2020-10-05 Completed [facility] Conjugate, PCV13 00:00:00 [facility] dical (Prevnar 13) Branch Influenza High Dose 2020-10-05 Completed [facility] 00:00:00 [facility] Influenza High Dose 2020-10-05 Completed [facility] 00:00:00 [facility] Pneumococcal 13 2020-10-05 Completed [facility] Conjugate, PCV13 00:00:00 [facility] dical (Prevnar 13) Branch Influenza High Dose 2020-10-05 Completed [facility] 00:00:00 [facility] Influenza High Dose 2020-10-05 Completed [facility] 00:00:00 [facility] Pneumococcal 13 2020-10-05 Completed [facility] Conjugate, PCV13 00:00:00 [facility] dical (Prevnar 13) Branch Influenza High Dose 2020-10-05 Completed [facility] 00:00:00 [facility] Influenza High Dose 2020-10-05 Completed [facility] 00:00:00 [facility] Pneumococcal 13 2020-10-05 Completed [facility] Conjugate, PCV13 00:00:00 [facility] dical (Prevnar 13) Branch Influenza High Dose 2020-10-05 Completed [facility] 00:00:00 [facility] Influenza High Dose 2020-10-05 Completed [facility] 00:00:00 [facility] Pneumococcal 13 2020-10-05 Completed [facility] Conjugate, PCV13 00:00:00 [facility] dical (Prevnar 13) Branch Influenza High Dose 2020-10-05 Completed [facility] 00:00:00 [facility] Influenza High Dose 2020-10-05 Completed [facility] 00:00:00 [facility] Pneumococcal 13 2020-10-05 Completed [facility] Conjugate, PCV13 00:00:00 [place] [facility] (Prevnar 13) Branch Influenza High Dose 2020-10-05 Completed [facility] 00:00:00 [facility] Influenza High Dose 2020-10-05 Completed [facility] 00:00:00 [facility] Pneumococcal 13 2020-10-05 Completed [facility] Conjugate, PCV13 00:00:00 [facility] dical (Prevnar 13) Branch Influenza High Dose 2020-10-05 Completed [facility] 00:00:00 [facility] Influenza High Dose 2020-10-05 Completed [facility] 00:00:00 [facility] Pneumococcal 13 2020-10-05 Completed [facility] of Conjugate, PCV13 00:00:00 [facility] dical (Prevnar 13) Branch Influenza High Dose 2020-10-05 Completed [facility] 00:00:00 [facility] Influenza High Dose 2020-10-05 Completed [facility] 00:00:00 [facility] Pneumococcal 13 2020-10-05 Completed [facility] Conjugate, PCV13 00:00:00 [facility] dical (Prevnar 13) Branch Influenza High Dose 2020-10-05 Completed [facility] of 00:00:00 [facility] Influenza High Dose 2020-10-05 Completed [facility] 00:00:00 [facility] Pneumococcal 13 2020-10-05 Completed [facility] of Conjugate, PCV13 00:00:00 [facility] dical (Prevnar 13) Branch Influenza High Dose 2020-10-05 Completed [facility] 00:00:00 [facility] Influenza High Dose 2020-10-05 Completed [facility] 00:00:00 [facility] Pneumococcal 13 2020-10-05 Completed [facility] Conjugate, PCV13 00:00:00 [facility] (Prevnar 13) Branch Influenza High Dose 2020-10-05 Completed [facility] 00:00:00 [facility] Influenza High Dose 2020-10-05 Completed [facility] 00:00:00 [facility] Pneumococcal 13 2020-10-05 Completed [facility] of Conjugate, PCV13 00:00:00 [facility] (Prevnar 13) Branch Influenza High Dose 2020-10-05 Completed [facility] 00:00:00 [facility] Influenza High Dose 2020-10-05 Completed [facility] 00:00:00 [facility] Pneumococcal 13 2020-10-05 Completed [facility] of Conjugate, PCV13 00:00:00 [facility] (Prevnar 13) Branch Influenza High Dose 2020-10-05 Completed [facility] 00:00:00 [facility] Influenza High Dose 2020-10-05 Completed [facility] 00:00:00 [facility] Pneumococcal 13 2020-10-05 Completed [facility] Conjugate, PCV13 00:00:00 [facility] (Prevnar 13) Branch Influenza High Dose 2020-10-05 Completed [facility] 00:00:00 [facility] Influenza High Dose 2020-10-05 Completed [facility] 00:00:00 [facility] Pneumococcal 13 2020-10-05 Completed [facility] of Conjugate, PCV13 00:00:00 [facility] (Prevnar 13) Branch Influenza High Dose 2020-10-05 Completed [facility] 00:00:00 [facility] Influenza High Dose 2020-10-05 Completed [facility] 00:00:00 [facility] Pneumococcal 13 2020-10-05 Completed [facility] of Conjugate, PCV13 00:00:00 [facility] (Prevnar 13) Branch Influenza High Dose 2020-10-05 Completed [facility] 00:00:00 [facility] Influenza High Dose 2020-10-05 Completed [facility] 00:00:00 [facility] Pneumococcal 13 2020-10-05 Completed [facility] of Conjugate, PCV13 00:00:00 [facility] (Prevnar 13) Branch Influenza High Dose 2020-10-05 Completed [facility] 00:00:00 [facility] Influenza High Dose 2020-10-05 Completed [facility] 00:00:00 [facility] Pneumococcal 13 2020-10-05 Completed [facility] Conjugate, PCV13 00:00:00 [facility] (Prevnar 13) Branch Influenza High Dose 2020-10-05 Completed [facility] 00:00:00 [facility] Influenza High Dose 2020-10-05 Completed [facility] 00:00:00 [facility] Pneumococcal 13 2020-10-05 Completed [facility] of Conjugate, PCV13 00:00:00 [facility] (Prevnar 13) Branch Influenza High Dose 2020-10-05 Completed [facility] 00:00:00 [facility] Influenza High Dose 2020-10-05 Completed [facility] 00:00:00 [facility] Pneumococcal 13 2020-10-05 Completed [facility] of Conjugate, PCV13 00:00:00 [facility] dical (Prevnar 13) Branch Influenza High Dose 2020-10-05 Completed [facility] 00:00:00 [facility] Influenza High Dose 2020-10-05 Completed [facility] 00:00:00 [facility] Pneumococcal 13 2020-10-05 Completed [facility] of Conjugate, PCV13 00:00:00 [facility] dical (Prevnar 13) Branch Influenza High Dose 2020-10-05 Completed [facility] 00:00:00 [facility] Influenza High Dose 2020-10-05 Completed [facility] 00:00:00 [facility] Pneumococcal 13 2020-10-05 Completed [facility] of Conjugate, PCV13 00:00:00 [facility] dical (Prevnar 13) Branch Influenza High Dose 2020-10-05 Completed [facility] 00:00:00 [facility] Influenza High Dose 2020-10-05 Completed [facility] 00:00:00 [facility] Pneumococcal 13 2020-10-05 Completed [facility] of Conjugate, PCV13 00:00:00 [facility] dical (Prevnar 13) Branch Influenza High Dose 2020-10-05 Completed [facility] 00:00:00 [facility] Influenza High Dose 2020-10-05 Completed [facility] 00:00:00 [facility] Pneumococcal 13 2020-10-05 Completed [facility] Conjugate, PCV13 00:00:00 [facility] (Prevnar 13) Branch Influenza High Dose 2020-10-05 Completed [facility] 00:00:00 [facility] Influenza High Dose 2020-10-05 Completed [facility] 00:00:00 [facility] Pneumococcal 13 2020-10-05 Completed [facility] of Conjugate, PCV13 00:00:00 [facility] (Prevnar 13) Branch Influenza High Dose 2020-10-05 Completed [facility] 00:00:00 [facility] Influenza High Dose 2020-10-05 Completed [facility] 00:00:00 [facility] Pneumococcal 13 2020-10-05 Completed [facility] of Conjugate, PCV13 00:00:00 [facility] (Prevnar 13) Branch Influenza High Dose 2020-10-05 Completed [facility] 00:00:00 [facility] Influenza High Dose 2020-10-05 Completed [facility] 00:00:00 [facility] Pneumococcal 13 2020-10-05 Completed [facility] of Conjugate, PCV13 00:00:00 [facility] (Prevnar 13) Branch Influenza High Dose 2020-10-05 Completed [facility] 00:00:00 [facility] Influenza High Dose 2020-10-05 Completed [facility] 00:00:00 [facility] Pneumococcal 13 2020-10-05 Completed [facility] of Conjugate, PCV13 00:00:00 [facility] (Prevnar 13) Branch Influenza High Dose 2020-10-05 Completed [facility] 00:00:00 [facility] Influenza High Dose 2020-10-05 Completed [facility] 00:00:00 [facility] Pneumococcal 13 2020-10-05 Completed [facility] of Conjugate, PCV13 00:00:00 [facility] (Prevnar 13) Branch Influenza High Dose 2020-10-05 Completed [facility] 00:00:00 [facility] Influenza High Dose 2020-10-05 Completed [facility] 00:00:00 [facility] Pneumococcal 13 2020-10-05 Completed [facility] of Conjugate, PCV13 00:00:00 [place] [facility] (Prevnar 13) Branch Influenza High Dose 2020-10-05 Completed [facility] 00:00:00 [facility] Influenza High Dose 2020-10-05 Completed [facility] 00:00:00 [facility] Pneumococcal 13 2020-10-05 Completed [facility] of Conjugate, PCV13 00:00:00 [place] [facility] (Prevnar 13) Branch Influenza High Dose 2020-10-05 Completed [facility] 00:00:00 [facility] Influenza High Dose 2020-10-05 Completed [facility] 00:00:00 [facility] Pneumococcal 13 2020-10-05 Completed [facility] of Conjugate, PCV13 00:00:00 [facility] dical (Prevnar 13) Branch Influenza High Dose 2020-10-05 Completed [facility] 00:00:00 [facility] Influenza High Dose 2020-10-05 Completed [facility] 00:00:00 [facility] Pneumococcal 13 2020-10-05 Completed [facility] of Conjugate, PCV13 00:00:00 [facility]ical (Prevnar 13) Branch Influenza High Dose 2020-10-05 Completed [facility] 00:00:00 [facility] Influenza High Dose 2020-10-05 Completed [facility] 00:00:00 [facility] Pneumococcal 13 2020-10-05 Completed [facility] of Conjugate, PCV13 00:00:00 [facility] dical (Prevnar 13) Branch Influenza High Dose 2020-10-05 Completed [facility] 00:00:00 [facility] Influenza High Dose 2020-10-05 Completed [facility] 00:00:00 [facility] Pneumococcal 13 2020-10-05 Completed [facility] of Conjugate, PCV13 00:00:00 [facility] dical (Prevnar 13) Branch Influenza High Dose 2020-10-05 Completed [facility] 00:00:00 [facility] Influenza High Dose 2020-10-05 Completed [facility] 00:00:00 [facility] Pneumococcal 13 2020-10-05 Completed [facility] of Conjugate, PCV13 00:00:00 [facility]ical (Prevnar 13) Branch Influenza High Dose 2020-10-05 Completed [facility] 00:00:00 [facility] Influenza High Dose 2020-10-05 Completed [facility] 00:00:00 [facility] Pneumococcal 13 2020-10-05 Completed [facility] of Conjugate, PCV13 00:00:00 [facility] dical (Prevnar 13) Branch Influenza High Dose 2020-10-05 Completed [facility] 00:00:00 [facility] Influenza High Dose 2020-10-05 Completed [facility] 00:00:00 [facility] Pneumococcal 13 2020-10-05 Completed [facility] of Conjugate, PCV13 00:00:00 [place] [facility] (Prevnar 13) Branch Influenza High Dose 2020-10-05 Completed [facility] 00:00:00 [facility] Influenza High Dose 2020-10-05 Completed [facility] 00:00:00 [facility] Pneumococcal 13 2020-10-05 Completed [facility] of Conjugate, PCV13 00:00:00 [place] [facility] (Prevnar 13) Branch Influenza High Dose 2020-10-05 Completed [facility] 00:00:00 [facility] Influenza High Dose 2020-10-05 Completed [facility] 00:00:00 [facility] Pneumococcal 13 2020-10-05 Completed [facility] of Conjugate, PCV13 00:00:00 [facility] (Prevnar 13) Branch Influenza High Dose 2020-10-05 Completed [facility] 00:00:00 [facility] Influenza High Dose 2020-10-05 Completed [facility] 00:00:00 [facility] Pneumococcal 13 2020-10-05 Completed [facility] of Conjugate, PCV13 00:00:00 [place] [facility] (Prevnar 13) Branch Influenza High Dose 2020-10-05 Completed [facility] 00:00:00 [facility] Influenza High Dose 2020-10-05 Completed [facility] 00:00:00 [facility] Pneumococcal 13 2020-10-05 Completed [facility] of Conjugate, PCV13 00:00:00 [facility] (Prevnar 13) Branch Influenza High Dose 2020-10-05 Completed [facility] 00:00:00 [facility] Influenza High Dose 2020-10-05 Completed [facility] 00:00:00 [facility] Pneumococcal 13 2020-10-05 Completed [facility] of Conjugate, PCV13 00:00:00 [facility] (Prevnar 13) Branch Influenza High Dose 2020-10-05 Completed [facility] 00:00:00 [facility] Influenza High Dose 2020-10-05 Completed [facility] 00:00:00 [facility] Pneumococcal 13 2020-10-05 Completed [facility] of Conjugate, PCV13 00:00:00 [facility] (Prevnar 13) Branch Influenza High Dose 2020-10-05 Completed [facility] 00:00:00 [facility] Influenza High Dose 2020-10-05 Completed [facility] 00:00:00 [facility] Pneumococcal 13 2020-10-05 Completed [facility] of Conjugate, PCV13 00:00:00 [place] [facility] (Prevnar 13) Branch Influenza High Dose 2020-10-05 Completed [facility] 00:00:00 [facility] Influenza High Dose 2020-10-05 Completed [facility] 00:00:00 [facility] Pneumococcal 13 2020-10-05 Completed [facility] of Conjugate, PCV13 00:00:00 [facility] dical (Prevnar 13) Branch Influenza High Dose 2020-10-05 Completed [facility] 00:00:00 [facility] Influenza High Dose 2020-10-05 Completed [facility] 00:00:00 [facility] Pneumococcal 13 2020-10-05 Completed [facility] of Conjugate, PCV13 00:00:00 [facility] dical (Prevnar 13) Branch TDAP 2019-06-07 Completed [facility] 00:00:00 [facility] TDAP 2019-06-07 Completed [facility] of 00:00:00 [facility] TDAP 2019-06-07 Completed [facility] of 00:00:00 [facility] TDAP 2019-06-07 Completed [facility] of 00:00:00 [facility] TDAP 2019-06-07 Completed [facility] of 00:00:00 [facility] TDAP 2019-06-07 Completed [facility] of 00:00:00 [facility] TDAP 2019-06-07 Completed [facility] of 00:00:00 [facility] TDAP 2019-06-07 Completed [facility] of 00:00:00 [facility] TDAP 2019-06-07 Completed [facility] of 00:00:00 [facility] TDAP 2019-06-07 Completed [facility] of 00:00:00 [facility] TDAP 2019-06-07 Completed [facility] of 00:00:00 [facility] TDAP 2019-06-07 Completed [facility] of 00:00:00 [facility] TDAP 2019-06-07 Completed [facility] of 00:00:00 [facility] TDAP 2019-06-07 Completed [facility] of 00:00:00 [facility] TDAP 2019-06-07 Completed [facility] of 00:00:00 [facility] TDAP 2019-06-07 Completed [facility] of 00:00:00 [facility] TDAP 2019-06-07 Completed [facility] 00:00:00 [facility] TDAP 2019-06-07 Completed [facility] 00:00:00 [facility] TDAP 2019-06-07 Completed [facility] 00:00:00 [facility] TDAP 2019-06-07 Completed [facility] 00:00:00 [facility] TDAP 2019-06-07 Completed [facility] 00:00:00 [facility] TDAP 2019-06-07 Completed [facility] 00:00:00 [facility] TDAP 2019-06-07 Completed [facility] 00:00:00 [facility] TDAP 2019-06-07 Completed [facility] 00:00:00 [facility] TDAP 2019-06-07 Completed [facility] 00:00:00 [facility] TDAP 2019-06-07 Completed [facility] 00:00:00 [facility] TDAP 2019-06-07 Completed [facility] 00:00:00 [facility] TDAP 2019-06-07 Completed [facility] 00:00:00 [facility] TDAP 2019-06-07 Completed [facility] 00:00:00 [facility] TDAP 2019-06-07 Completed [facility] 00:00:00 [facility] TDAP 2019-06-07 Completed [facility] 00:00:00 [facility] TDAP 2019-06-07 Completed [facility] 00:00:00 [facility] TDAP 2019-06-07 Completed [facility] 00:00:00 [facility] TDAP 2019-06-07 Completed [facility] 00:00:00 [facility] TDAP 2019-06-07 Completed [facility] 00:00:00 [facility] TDAP 2019-06-07 Completed [facility] 00:00:00 [facility] TDAP 2019-06-07 Completed [facility] 00:00:00 [facility] TDAP 2019-06-07 Completed [facility] 00:00:00 [facility] TDAP 2019-06-07 Completed [facility] 00:00:00 [facility] TDAP 2019-06-07 Completed [facility] 00:00:00 [facility] TDAP 2019-06-07 Completed [facility] 00:00:00 [facility] TDAP 2019-06-07 Completed [facility] 00:00:00 [facility] TDAP 2019-06-07 Completed [facility] 00:00:00 [facility] TDAP 2019-06-07 Completed [facility] 00:00:00 [facility] TDAP 2019-06-07 Completed [facility] 00:00:00 [facility] TDAP 2019-06-07 Completed [facility] 00:00:00 [facility] TDAP 2019-06-07 Completed [facility] 00:00:00 [facility] TDAP 2019-06-07 Completed [facility] 00:00:00 [facility] TDAP 2019-06-07 Completed [facility] 00:00:00 [facility] TDAP 2019-06-07 Completed [facility] 00:00:00 [facility] TDAP 2019-06-07 Completed [facility] 00:00:00 [facility] TDAP 2019-06-07 Completed [facility] 00:00:00 [facility] TDAP 2019-06-07 Completed [facility] 00:00:00 [facility] TDAP 2019-06-07 Completed [facility] 00:00:00 [facility] TDAP 2019-06-07 Completed [facility] 00:00:00 [facility] TDAP 2019-06-07 Completed [facility] 00:00:00 [facility] TDAP 2019-06-07 Completed [facility] 00:00:00 [facility] TDAP 2019-06-07 Completed [facility] 00:00:00 [facility] TDAP 2019-06-07 Completed [facility] 00:00:00 [facility] TDAP 2019-06-07 Completed [facility] 00:00:00 [facility] TDAP 2019-06-07 Completed [facility] 00:00:00 [facility] TDAP 2019-06-07 Completed [facility] 00:00:00 [facility] [facility] TDAP 2019-06-07 Completed [facility] 00:00:00 [facility] TDAP 2019-06-07 Completed [facility] 00:00:00 [facility] TDAP 2019-06-07 Completed [facility] 00:00:00 [facility] TDAP 2019-06-07 Completed [facility] 00:00:00 [facility] TDAP 2019-06-07 Completed [facility] 00:00:00 [facility] TDAP 2019-06-07 Completed [facility] 00:00:00 [facility] TDAP 2019-06-07 Completed [facility] 00:00:00 [facility] TDAP 2019-06-07 Completed [facility] 00:00:00 [facility] TDAP 2019-06-07 Completed [facility] 00:00:00 [facility] TDAP 2019-06-07 Completed [facility] 00:00:00 [facility] TDAP 2019-06-07 Completed [facility] 00:00:00 [facility] TDAP 2019-06-07 Completed [facility] 00:00:00 [facility] TDAP 2019-06-07 Completed [facility] 00:00:00 [facility] TDAP 2019-06-07 Completed [facility] 00:00:00 [facility] TDAP 2019-06-07 Completed [facility] 00:00:00 [facility] TDAP 2019-06-07 Completed [facility] 00:00:00 [facility] TDAP 2019-06-07 Completed [facility] 00:00:00 [facility] TDAP 2019-06-07 Completed [facility] 00:00:00 [facility] TDAP 2019-06-07 Completed [facility] 00:00:00 [facility] TDAP 2019-06-07 Completed [facility] 00:00:00 [facility] TDAP 2019-06-07 Completed [facility] 00:00:00 [facility] TDAP 2019-06-07 Completed [facility] 00:00:00 [facility] TDAP 2019-06-07 Completed [facility] 00[facility]00:00 [facility] TDAP 2019-06-07 Completed [facility] 00:00:00 [facility] TDAP 2019-06-07 Completed [facility] 00:00:00 [facility] TDAP 2019-06-07 Completed [facility] 00[facility]00:00 [facility] TDAP 2019-06-07 Completed [facility] 00:00:00 [facility] TDAP 2019-06-07 Completed [facility] 00:00:00 [facility] TDAP 2019-06-07 Completed [facility] 00[facility]00:00 [facility] TDAP 2019-06-07 Completed [facility] 00:00:00 [facility] TDAP 2019-06-07 Completed [facility] 00[facility]00:00 [facility] TDAP 2019-06-07 Completed [facility] 00:00:00 [facility] TDAP 2019-06-07 Completed [facility] 00:00:00 [facility] TDAP 2019-06-07 Completed [facility] 00:00:00 [facility] TDAP 2019-06-07 Completed [facility] 00:00:00 [facility] TDAP 2019-06-07 Completed [facility] 00:00:00 [facility] TDAP 2019-06-07 Completed [facility] 00:00:00 [facility] TDAP 2019-06-07 Completed [facility] 00:00:00 [facility] TDAP 2019-06-07 Completed [facility] 00:00:00 [facility] TDAP 2019-06-07 Completed [facility] 00:00:00 [facility] TDAP 2019-06-07 Completed [facility] 00:00:00 [facility] TDAP 2019-06-07 Completed [facility] 00:00:00 [facility] TDAP 2019-06-07 Completed [facility] 00:00:00 [facility] TDAP 2019-06-07 Completed [facility] 00:00:00 [facility] TDAP 2019-06-07 Completed [facility] 00:00:00 [facility] TDAP 2019-06-07 Completed [facility] 00:00:00 [facility] TDAP 2019-06-07 Completed [facility] 00:00:00 [facility] TDAP 2019-06-07 Completed [facility] 00:00:00 [facility] TDAP 2019-06-07 Completed [facility] 00:00:00 [facility] TDAP 2019-06-07 Completed [facility] 00:00:00 [facility] TDAP 2019-06-07 Completed [facility] 00:00:00 [facility] TDAP 2019-06-07 Completed [facility] 00:00:00 [facility] Zoster Vaccine 2018-10-13 Completed [facility] Recombinant 00:00:00 [facility] Zoster Vaccine 2018-10-13 Completed [facility] Recombinant 00:00:00 [facility] Zoster Vaccine 2018-10-13 Completed [facility] Recombinant 00:00:00 [facility] Zoster Vaccine 2018-10-13 Completed [facility] Recombinant 00:00:00 [facility] Zoster Vaccine 2018-10-13 Completed [facility] Recombinant 00:00:00 [facility] Zoster Vaccine 2018-10-13 Completed [facility] Recombinant 00:00:00 [facility] Zoster Vaccine 2018-10-13 Completed [facility] Recombinant 00:00:00 [facility] Zoster Vaccine 2018-10-13 Completed [facility] Recombinant 00:00:00 [facility] Zoster Vaccine 2018-10-13 Completed [facility] Recombinant 00:00:00 [facility] Zoster Vaccine 2018-10-13 Completed [facility] Recombinant 00:00:00 [facility] Zoster Vaccine 2018-10-13 Completed [facility] Recombinant 00:00:00 [facility] Zoster Vaccine 2018-10-13 Completed [facility] Recombinant 00:00:00 [facility] Zoster Vaccine 2018-10-13 Completed [facility] Recombinant 00:00:00 [facility] Zoster Vaccine 2018-10-13 Completed [facility] Recombinant 00:00:00 [facility] Zoster Vaccine 2018-10-13 Completed [facility] Recombinant 00:00:00 [place] [facility] Zoster Vaccine 2018-10-13 Completed [facility] Recombinant 00:00:00 [place] [facility] Zoster Vaccine 2018-10-13 Completed [facility] Recombinant 00:00:00 [facility] Zoster Vaccine 2018-10-13 Completed [facility] Recombinant 00:00:00 [facility] Zoster Vaccine 2018-10-13 Completed [facility] Recombinant 00:00:00 [facility] Zoster Vaccine 2018-10-13 Completed [facility] Recombinant 00:00:00 [facility] Zoster Vaccine 2018-10-13 Completed [facility] Recombinant 00:00:00 [facility] Zoster Vaccine 2018-10-13 Completed [facility] Recombinant 00:00:00 [facility] Zoster Vaccine 2018-10-13 Completed [facility] Recombinant 00:00:00 [facility] Zoster Vaccine 2018-10-13 Completed [facility] Recombinant 00:00:00 [facility] Zoster Vaccine 2018-10-13 Completed [facility] Recombinant 00:00:00 [facility] Zoster Vaccine 2018-10-13 Completed [facility] Recombinant 00:00:00 [facility] Zoster Vaccine 2018-10-13 Completed [facility] Recombinant 00:00:00 [facility] Zoster Vaccine 2018-10-13 Completed [facility] Recombinant 00:00:00 [facility] Zoster Vaccine 2018-10-13 Completed [facility] Recombinant 00:00:00 [facility] Zoster Vaccine 2018-10-13 Completed [facility] Recombinant 00:00:00 [facility] Zoster Vaccine 2018-10-13 Completed [facility] Recombinant 00:00:00 [facility] Zoster Vaccine 2018-10-13 Completed [facility] Recombinant 00:00:00 [facility] Zoster Vaccine 2018-10-13 Completed [facility] Recombinant 00:00:00 [facility] Zoster Vaccine 2018-10-13 Completed [facility] Recombinant 00:00:00 [facility] Zoster Vaccine 2018-10-13 Completed [facility] Recombinant 00:00:00 [facility] Zoster Vaccine 2018-10-13 Completed [facility] Recombinant 00:00:00 [facility] Zoster Vaccine 2018-10-13 Completed [facility] Recombinant 00:00:00 [facility] Zoster Vaccine 2018-10-13 Completed [facility] Recombinant 00:00:00 [facility] Zoster Vaccine 2018-10-13 Completed [facility] Recombinant 00:00:00 [facility] Zoster Vaccine 2018-10-13 Completed [facility] Recombinant 00:00:00 [facility] Zoster Vaccine 2018-10-13 Completed [facility] Recombinant 00:00:00 [facility] Zoster Vaccine 2018-10-13 Completed [facility] Recombinant 00:00:00 [facility] Zoster Vaccine 2018-10-13 Completed [facility] Recombinant 00:00:00 [facility] Zoster Vaccine 2018-10-13 Completed [facility] Recombinant 00:00:00 [facility] Zoster Vaccine 2018-10-13 Completed [facility] Recombinant 00:00:00 [facility] Zoster Vaccine 2018-10-13 Completed [facility] Recombinant 00:00:00 [facility] Zoster Vaccine 2018-10-13 Completed [facility] Recombinant 00:00:00 [facility] Zoster Vaccine 2018-10-13 Completed [facility] Recombinant 00:00:00 [facility] Zoster Vaccine 2018-10-13 Completed [facility] Recombinant 00:00:00 [facility] Zoster Vaccine 2018-10-13 Completed [facility] Recombinant 00:00:00 [facility] Zoster Vaccine 2018-10-13 Completed [facility] Recombinant 00:00:00 [facility] Zoster Vaccine 2018-10-13 Completed [facility] Recombinant 00:00:00 [facility] Zoster Vaccine 2018-10-13 Completed [facility] Recombinant 00:00:00 [facility] Zoster Vaccine 2018-10-13 Completed [facility] Recombinant 00:00:00 [facility] Zoster Vaccine 2018-10-13 Completed [facility] Recombinant 00:00:00 [facility] Zoster Vaccine 2018-10-13 Completed [facility] Recombinant 00:00:00 [facility] Zoster Vaccine 2018-10-13 Completed [facility] Recombinant 00:00:00 [facility] Zoster Vaccine 2018-10-13 Completed [facility] Recombinant 00:00:00 [facility] Zoster Vaccine 2018-10-13 Completed [facility] Recombinant 00:00:00 [facility] Zoster Vaccine 2018-10-13 Completed [facility] Recombinant 00:00:00 [facility] Zoster Vaccine 2018-10-13 Completed [facility] Recombinant 00:00:00 [facility] Zoster Vaccine 2018-10-13 Completed [facility] Recombinant 00:00:00 [facility] Zoster Vaccine 2018-10-13 Completed [facility] Recombinant 00:00:00 [facility] Zoster Vaccine 2018-10-13 Completed [facility] Recombinant 00:00:00 [facility] Zoster Vaccine 2018-10-13 Completed [facility] Recombinant 00:00:00 [facility] Zoster Vaccine 2018-10-13 Completed [facility] Recombinant 00:00:00 [facility] Zoster Vaccine 2018-10-13 Completed [facility] Recombinant 00:00:00 [facility] Zoster Vaccine 2018-10-13 Completed [facility] Recombinant 00:00:00 [facility] Zoster Vaccine 2018-10-13 Completed [facility] Recombinant 00:00:00 [facility] Zoster Vaccine 2018-10-13 Completed [facility] Recombinant 00:00:00 [facility] Zoster Vaccine 2018-10-13 Completed [facility] Recombinant 00:00:00 [facility] Zoster Vaccine 2018-10-13 Completed [facility] Recombinant 00:00:00 [facility] Zoster Vaccine 2018-10-13 Completed [facility] Recombinant 00:00:00 [facility] Zoster Vaccine 2018-10-13 Completed [facility] Recombinant 00:00:00 [facility] Zoster Vaccine 2018-10-13 Completed [facility] Recombinant 00:00:00 [facility] Zoster Vaccine 2018-10-13 Completed [facility] Recombinant 00:00:00 [facility] Zoster Vaccine 2018-10-13 Completed [facility] Recombinant 00:00:00 [facility] Zoster Vaccine 2018-10-13 Completed [facility] Recombinant 00:00:00 [facility] Zoster Vaccine 2018-10-13 Completed [facility] Recombinant 00:00:00 [facility] Zoster Vaccine 2018-10-13 Completed [facility] Recombinant 00:00:00 [facility] Zoster Vaccine 2018-10-13 Completed [facility] Recombinant 00:00:00 [facility] Zoster Vaccine 2018-10-13 Completed [facility] Recombinant 00:00:00 [facility] Zoster Vaccine 2018-10-13 Completed [facility] Recombinant 00:00:00 [facility] Zoster Vaccine 2018-10-13 Completed [facility] Recombinant 00:00:00 [facility] Zoster Vaccine 2018-10-13 Completed [facility] Recombinant 00:00:00 [facility] Zoster Vaccine 2018-10-13 Completed [facility] Recombinant 00:00:00 [facility] Zoster Vaccine 2018-10-13 Completed [facility] Recombinant 00:00:00 [facility] Zoster Vaccine 2018-10-13 Completed [facility] Recombinant 00:00:00 [facility] Zoster Vaccine 2018-10-13 Completed [facility] Recombinant 00:00:00 [facility] Zoster Vaccine 2018-10-13 Completed [facility] Recombinant 00:00:00 [facility] Zoster Vaccine 2018-10-13 Completed [facility] Recombinant 00:00:00 [facility] Zoster Vaccine 2018-10-13 Completed [facility] Recombinant 00:00:00 [facility] Zoster Vaccine 2018-10-13 Completed [facility] Recombinant 00:00:00 [facility] Zoster Vaccine 2018-10-13 Completed [facility] Recombinant 00[facility]00:00 [facility] Zoster Vaccine 2018-10-13 Completed [facility] Recombinant 00:00:00 [facility] Zoster Vaccine 2018-10-13 Completed [facility] Recombinant 00:00:00 [facility] Zoster Vaccine 2018-10-13 Completed [facility] Recombinant 00:00:00 [facility] Zoster Vaccine 2018-10-13 Completed [facility] Recombinant 00[facility]00:00 [place] [facility] Zoster Vaccine 2018-10-13 Completed [facility] Recombinant 00:00:00 [facility] Zoster Vaccine 2018-10-13 Completed [facility] Recombinant 00:00:00 [facility] Zoster Vaccine 2018-10-13 Completed [facility] Recombinant 00:00:00 [facility] Zoster Vaccine 2018-10-13 Completed [facility] Recombinant 00:00:00 [facility] Zoster Vaccine 2018-10-13 Completed [facility] Recombinant 00:00:00 [facility] Zoster Vaccine 2018-10-13 Completed [facility] Recombinant 00:00:00 [facility] Zoster Vaccine 2018-10-13 Completed [facility] Recombinant 00:00:00 [facility] Zoster Vaccine 2018-10-13 Completed [facility] Recombinant 00:00:00 [facility] Zoster Vaccine 2018-10-13 Completed [facility] Recombinant 00:00:00 [facility] Zoster Vaccine 2018-10-13 Completed [facility] Recombinant 00:00:00 [facility] Zoster Vaccine 2018-10-13 Completed [facility] Recombinant 00:00:00 [facility] Zoster Vaccine 2018-10-13 Completed [facility] Recombinant 00:00:00 [facility] Zoster Vaccine 2018-10-13 Completed [facility] Recombinant 00:00:00 [facility] Zoster Vaccine 2018-10-13 Completed [facility] Recombinant 00:00:00 [facility] Zoster Vaccine 2018-10-13 Completed [facility] Recombinant 00:00:00 [facility] Zoster Vaccine 2018-10-13 Completed [facility] Recombinant 00:00:00 [facility] Zoster Vaccine 2018-07-24 Completed [facility] Recombinant 00:00:00 [facility] Zoster Vaccine 2018-07-24 Completed [facility] Recombinant 00:00:00 [facility] Zoster Vaccine 2018-07-24 Completed [facility] Recombinant 00:00:00 [facility] Zoster Vaccine 2018-07-24 Completed [facility] Recombinant 00:00:00 [facility] Zoster Vaccine 2018-07-24 Completed [facility] Recombinant 00:00:00 [facility] Zoster Vaccine 2018-07-24 Completed [facility] Recombinant 00:00:00 [facility] Zoster Vaccine 2018-07-24 Completed [facility] Recombinant 00:00:00 [facility] Zoster Vaccine 2018-07-24 Completed [facility] Recombinant 00:00:00 [facility] Zoster Vaccine 2018-07-24 Completed [facility] Recombinant 00:00:00 [facility] Zoster Vaccine 2018-07-24 Completed [facility] Recombinant 00:00:00 [facility] Zoster Vaccine 2018-07-24 Completed [facility] Recombinant 00:00:00 [facility] Zoster Vaccine 2018-07-24 Completed [facility] Recombinant 00:00:00 [facility] Zoster Vaccine 2018-07-24 Completed [facility] Recombinant 00:00:00 [facility] Zoster Vaccine 2018-07-24 Completed [facility] Recombinant 00:00:00 [facility] Zoster Vaccine 2018-07-24 Completed [facility] Recombinant 00:00:00 [facility] Zoster Vaccine 2018-07-24 Completed [facility] Recombinant 00:00:00 [facility] Zoster Vaccine 2018-07-24 Completed [facility] Recombinant 00:00:00 [facility] Zoster Vaccine 2018-07-24 Completed [facility] Recombinant 00:00:00 [facility] Zoster Vaccine 2018-07-24 Completed [facility] Recombinant 00:00:00 [facility] Zoster Vaccine 2018-07-24 Completed [facility] Recombinant 00:00:00 [facility] Zoster Vaccine 2018-07-24 Completed [facility] Recombinant 00:00:00 [facility] Zoster Vaccine 2018-07-24 Completed [facility] Recombinant 00:00:00 [facility] Zoster Vaccine 2018-07-24 Completed [facility] Recombinant 00:00:00 [facility] Zoster Vaccine 2018-07-24 Completed [facility] Recombinant 00:00:00 [facility] Zoster Vaccine 2018-07-24 Completed [facility] Recombinant 00:00:00 [facility] Zoster Vaccine 2018-07-24 Completed [facility] Recombinant 00:00:00 [facility] Zoster Vaccine 2018-07-24 Completed [facility] Recombinant 00:00:00 [facility] Zoster Vaccine 2018-07-24 Completed [facility] Recombinant 00:00:00 [facility] Zoster Vaccine 2018-07-24 Completed [facility] Recombinant 00:00:00 [facility] Zoster Vaccine 2018-07-24 Completed [facility] Recombinant 00:00:00 [facility] Zoster Vaccine 2018-07-24 Completed [facility] Recombinant 00:00:00 [facility] Zoster Vaccine 2018-07-24 Completed [facility] Recombinant 00:00:00 [facility] Zoster Vaccine 2018-07-24 Completed [facility] Recombinant 00:00:00 [facility] Zoster Vaccine 2018-07-24 Completed [facility] Recombinant 00:00:00 [facility] Zoster Vaccine 2018-07-24 Completed [facility] Recombinant 00:00:00 [facility] Zoster Vaccine 2018-07-24 Completed [facility] Recombinant 00:00:00 [facility] Zoster Vaccine 2018-07-24 Completed [facility] Recombinant 00:00:00 [facility] Zoster Vaccine 2018-07-24 Completed [facility] Recombinant 00:00:00 [facility] Zoster Vaccine 2018-07-24 Completed [facility] Recombinant 00:00:00 [facility] Zoster Vaccine 2018-07-24 Completed [facility] Recombinant 00:00:00 [facility] Zoster Vaccine 2018-07-24 Completed [facility] Recombinant 00:00:00 [facility] Zoster Vaccine 2018-07-24 Completed [facility] Recombinant 00:00:00 [facility] Zoster Vaccine 2018-07-24 Completed [facility] Recombinant 00:00:00 [facility] Zoster Vaccine 2018-07-24 Completed [facility] Recombinant 00:00:00 [facility] Zoster Vaccine 2018-07-24 Completed [facility] Recombinant 00:00:00 [facility] Zoster Vaccine 2018-07-24 Completed [facility] Recombinant 00:00:00 [facility] Zoster Vaccine 2018-07-24 Completed [facility] Recombinant 00:00:00 [facility] Zoster Vaccine 2018-07-24 Completed [facility] Recombinant 00:00:00 [facility] Zoster Vaccine 2018-07-24 Completed [facility] Recombinant 00:00:00 [facility] Zoster Vaccine 2018-07-24 Completed [facility] Recombinant 00:00:00 [facility] Zoster Vaccine 2018-07-24 Completed [facility] Recombinant 00:00:00 [facility] Zoster Vaccine 2018-07-24 Completed [facility] Recombinant 00:00:00 [facility] Zoster Vaccine 2018-07-24 Completed [facility] Recombinant 00:00:00 [facility] Zoster Vaccine 2018-07-24 Completed [facility]combinant 00:00:00 [facility] [facility] Zoster Vaccine 2018-07-24 Completed University of Recombinant 00:00:00 [facility] Zoster Vaccine 2018-07-24 Completed University of Recombinant 00:00:00 [facility] Zoster Vaccine 2018-07-24 Completed University of Recombinant 00:00:00 [facility] Zoster Vaccine 2018-07-24 Completed University of Recombinant 00:00:00 [facility] Zoster Vaccine 2018-07-24 Completed University of Recombinant 00:00:00 [facility] Zoster Vaccine 2018-07-24 Completed University of Recombinant 00:00:00 [facility] Zoster Vaccine 2018-07-24 Completed University of Recombinant 00:00:00 [facility] Zoster Vaccine 2018-07-24 Completed University of Recombinant 00:00:00 [facility] Zoster Vaccine 2018-07-24 Completed University of Recombinant 00:00:00 [facility] Zoster Vaccine 2018-07-24 Completed University of Recombinant 00:00:00 [facility] Zoster Vaccine 2018-07-24 Completed University of Recombinant 00:00:00 [facility] Zoster Vaccine 2018-07-24 Completed University of Recombinant 00:00:00 [facility] Zoster Vaccine 2018-07-24 Completed University of Recombinant 00:00:00 [facility] Zoster Vaccine 2018-07-24 Completed University of Recombinant 00:00:00 [facility] Zoster Vaccine 2018-07-24 Completed University of Recombinant 00:00:00 [facility] Zoster Vaccine 2018-07-24 Completed University of Recombinant 00:00:00 [facility] Zoster Vaccine 2018-07-24 Completed University of Recombinant 00:00:00 [facility] Zoster Vaccine 2018-07-24 Completed University of Recombinant 00:00:00 [facility] Zoster Vaccine 2018-07-24 Completed [facility] of Recombinant 00:00:00 [facility] Zoster Vaccine 2018-07-24 Completed University of Recombinant 00:00:00 [facility] Zoster Vaccine 2018-07-24 Completed [facility] of Recombinant 00:00:00 [facility] Zoster Vaccine 2018-07-24 Completed University of Recombinant 00:00:00 [facility] Zoster Vaccine 2018-07-24 Completed University of Recombinant 00:00:00 [facility] Zoster Vaccine 2018-07-24 Completed University of Recombinant 00:00:00 [facility] Zoster Vaccine 2018-07-24 Completed University of Recombinant 00:00:00 [facility] Zoster Vaccine 2018-07-24 Completed [facility] of Recombinant 00:00:00 [facility] Zoster Vaccine 2018-07-24 Completed [facility] of Recombinant 00:00:00 [facility] Zoster Vaccine 2018-07-24 Completed University of Recombinant 00:00:00 [facility] Zoster Vaccine 2018-07-24 Completed [facility] of Recombinant 00:00:00 [facility] Zoster Vaccine 2018-07-24 Completed [facility] of Recombinant 00:00:00 [facility] Zoster Vaccine 2018-07-24 Completed University of Recombinant 00:00:00 [facility] Zoster Vaccine 2018-07-24 Completed University of Recombinant 00:00:00 [facility] Zoster Vaccine 2018-07-24 Completed University of Recombinant 00:00:00 [facility] Zoster Vaccine 2018-07-24 Completed [facility] of Recombinant 00:00:00 [facility] Zoster Vaccine 2018-07-24 Completed University of Recombinant 00:00:00 [facility] Zoster Vaccine 2018-07-24 Completed [facility] of Recombinant 00:00:00 [facility] Zoster Vaccine 2018-07-24 Completed [facility] of Recombinant 00:00:00 [facility] Zoster Vaccine 2018-07-24 Completed [facility] of Recombinant 00:00:00 [facility] Zoster Vaccine 2018-07-24 Completed [facility] of Recombinant 00:00:00 [facility] Zoster Vaccine 2018-07-24 Completed [facility] of Recombinant 00:00:00 [facility] Zoster Vaccine 2018-07-24 Completed University of Recombinant 00:00:00 [facility] Zoster Vaccine 2018-07-24 Completed [facility] of Recombinant 00:00:00 [facility] Zoster Vaccine 2018-07-24 Completed [facility] of Recombinant 00:00:00 [facility] Zoster Vaccine 2018-07-24 Completed [facility] of Recombinant 00:00:00 [facility] Zoster Vaccine 2018-07-24 Completed [facility] of Recombinant 00:00:00 [facility] Zoster Vaccine 2018-07-24 Completed [facility] of Recombinant 00:00:00 [facility] Zoster Vaccine 2018-07-24 Completed [facility] of Recombinant 00:00:00 [facility] Zoster Vaccine 2018-07-24 Completed [facility] of Recombinant 00:00:00 [facility] Zoster Vaccine 2018-07-24 Completed [facility] of Recombinant 00:00:00 [facility] Zoster Vaccine 2018-07-24 Completed [facility] of Recombinant 00:00:00 [facility] Zoster Vaccine 2018-07-24 Completed University of Recombinant 00:00:00 [facility] Zoster Vaccine 2018-07-24 Completed [facility] of Recombinant 00:00:00 [facility] Zoster Vaccine 2018-07-24 Completed [facility] of Recombinant 00:00:00 [facility] Zoster Vaccine 2018-07-24 Completed [facility] of Recombinant 00:00:00 [facility] Zoster Vaccine 2018-07-24 Completed [facility] of Recombinant 00:00:00 [facility] Zoster Vaccine 2018-07-24 Completed University of Recombinant 00:00:00 [facility] Zoster Vaccine 2018-07-24 Completed University of Recombinant 00:00:00 [facility] Zoster Vaccine 2018-07-24 Completed [facility] of Recombinant 00:00:00 [facility] Zoster Vaccine 2018-07-24 Completed [facility] of Recombinant 00:00:00 [facility] Zoster Vaccine 2018-07-24 Completed University of Recombinant 00:00:00 [facility] Vital Signs Vital Name Observation Time Observation Value Comments Source Systolic blood 2023-05-07 00:17:00 167 mm[Hg] Univer sity of pressure [facility] Diastolic blood 2023-05-07 00:17:00 69 mm[Hg] Unive rsity of pressure [facility] Heart rate 2023-05-07 00:17:00 81 /min Universi ty of [facility] Body temperature 2023-05-07 00:17:00 36.72 Meka Univ ersity of [facility] Respiratory rate 2023-05-07 00:17:00 20 /min Univ ersity of [facility] Oxygen saturation in 2023-05-07 00:17:00 94 /min University of Arterial blood by [facility] Pulse oxim[facility] Branch Body height 2023-05-02 12:27:00 160 cm Universi ty of [facility] Body weight 2023-05-02 12:27:00 108.7 kg Universi ty of [facility] BMI 2023-05-02 12:27:00 42.45 kg/m2 Universi ty [facility] Systolic blood 2023-05-02 17:25:00 101 mm[Hg] Univer sity of pressure [facility] Diastolic blood 2023-05-02 17:25:00 42 mm[Hg] Unive rsity of pressure [facility] Heart rate 2023-05-02 17:25:00 55 /min Universi ty of [facility] Body temperature 2023-05-02 17:25:00 36.33 Meka Univ ersity of [facility] Respiratory rate 2023-05-02 17:25:00 12 /min Univ ersity of [facility] Oxygen saturation in 2023-05-02 17:25:00 94 /min University of Arterial blood by [employer] Pulse oximetry Branch Body height 2023-05-02 12:27:00 160 cm Universi ty of [facility] Body weight 2023-05-02 12:27:00 108.7 kg Universi ty of [facility] BMI 2023-05-02 12:27:00 42.45 kg/m2 Universi ty of [facility] Systolic blood 2023-04-24 19:50:00 124 mm[Hg] Univer sity of pressure [facility] Diastolic blood 2023-04-24 19:50:00 69 mm[Hg] Unive rsity of pressure [facility] Heart rate 2023-04-24 19:50:00 67 /min Universi ty of [facility] Body temperature 2023-04-24 19:50:00 36.67 Meka Univ ersity of [facility] Body height 2023-04-24 19:50:00 160 cm Universi ty of [facility] Body weight 2023-04-24 19:50:00 107.502 kg Universi ty of [facility] BMI 2023-04-24 19:50:00 41.98 kg/m2 Universi ty of [facility] Systolic blood 2023-04-15 16:55:00 131 mm[Hg] Univer sity of pressure [facility] Diastolic blood 2023-04-15 16:55:00 55 mm[Hg] Unive rsity of pressure [facility] Heart rate 2023-04-15 16:55:00 63 /min Universi ty of [facility] Respiratory rate 2023-04-15 16:55:00 16 /min Univ ersity of [facility] Oxygen saturation in 2023-04-15 16:55:00 93 /min University of Arterial blood by [facility] Pulse oximetry Branch Body temperature 2023-04-15 15:35:18 36.72 Meka Univ ersity of [facility] Body height 2023-04-15 15:35:18 160 cm Universi ty of [facility] Body weight 2023-04-15 15:35:18 106.595 kg Universi ty of [facility] BMI 2023-04-15 15:35:18 41.63 kg/m2 Universi ty of [facility] Systolic blood 2023-03-27 20:48:00 151 mm[Hg] Univer sity of pressure [facility] Diastolic blood 2023-03-27 20:48:00 51 mm[Hg] Unive rsity of pressure [facility] Heart rate 2023-03-27 20:48:00 59 /min Universi ty of [facility] Body height 2023-03-27 20:48:00 160 cm Universi ty of [facility] Body weight 2023-03-27 20:48:00 108.092 kg Universi ty of [facility] BMI 2023-03-27 20:48:00 42.21 kg/m2 Universi ty of [facility] Oxygen saturation in 2023-03-27 20:48:00 95 /min University of Arterial blood by [facility] Pulse oximetry Branch Systolic blood 2023-01-23 20:20:00 147 mm[Hg] Univer sity of pressure [facility] Diastolic blood 2023-01-23 20:20:00 63 mm[Hg] Unive rsity of pressure [facility] Heart rate 2023-01-23 20:16:00 65 /min Universi ty of [facility] Body height 2023-01-23 20:16:00 160 cm Universi ty of [facility] Body weight 2023-01-23 20:16:00 106.142 kg Universi ty of [facility] BMI 2023-01-23 20:16:00 41.45 kg/m2 Universi ty of [facility] Oxygen saturation in 2023-01-23 20:16:00 95 /min University of Arterial blood by [facility] Pulse oximetry Branch Systolic blood 2023-01-02 21:10:00 146 mm[Hg] Univer sity of pressure [facility] Diastolic blood 2023-01-02 21:10:00 65 mm[Hg] Unive rsity of pressure [facility] Heart rate 2023-01-02 21:08:00 71 /min Universi ty of [facility] Body temperature 2023-01-02 21:08:00 36.56 Meka Univ ersity of [facility] Body height 2023-01-02 21:08:00 160 cm Universi ty of [facility] Body weight 2023-01-02 21:08:00 106.595 kg Universi ty of [facility] BMI 2023-01-02 21:08:00 41.63 kg/m2 Universi ty of [facility] Respiratory rate 2022-12-16 17:30:00 16 /min Univ ersity of [facility] Body height 2022-12-16 17:30:00 160 cm Universi ty of [facility] Body weight 2022-12-16 17:30:00 104.327 kg Universi ty of [facility] BMI 2022-12-16 17:30:00 40.74 kg/m2 Universi ty of [facility] Systolic blood 2022-10-02 19:36:00 143 mm[Hg] Univer sity of pressure [facility] Diastolic blood 2022-10-02 19:36:00 57 mm[Hg] Unive rsity of pressure [facility] Heart rate 2022-10-02 19:35:00 78 /min Universi ty of [facility] Body height 2022-10-02 19:35:00 160 cm Universi ty of [facility] Body weight 2022-10-02 19:35:00 103.874 kg Universi ty of [facility] BMI 2022-10-02 19:35:00 40.57 kg/m2 Universi ty of [facility] Systolic blood 2022-09-23 19:55:00 105 mm[Hg] Univer sity of pressure [facility] Diastolic blood 2022-09-23 19:55:00 52 mm[Hg] Unive rsity of pressure [facility] Heart rate 2022-09-23 19:55:00 69 /min Universi ty of [facility] Body temperature 2022-09-23 19:55:00 36.44 Meka Univ ersity of [facility] Body height 2022-09-23 19:55:00 160 cm Universi ty of [facility] Body weight 2022-09-23 19:55:00 104.826 kg Universi ty of [facility] BMI 2022-09-23 19:55:00 40.94 kg/m2 Universi ty of [facility] Oxygen saturation in 2022-09-23 19:55:00 95 /min University Arterial blood by [facility] Pulse oximetry Branch Systolic blood 2022-09-21 14:00:00 135 mm[Hg] Univer sity of pressure [facility] Diastolic blood 2022-09-21 14:00:00 61 mm[Hg] Unive rsity of pressure [facility] Heart rate 2022-09-21 14:00:00 62 /min Universi ty of [facility] Respiratory rate 2022-09-21 14:00:00 17 /min Univ ersity of [facility] Oxygen saturation in 2022-09-21 14:00:00 94 /min University Arterial blood by [facility] Pulse oximetry Branch Body temperature 2022-09-21 13:07:46 37.11 Meka Univ ersity of [facility] Body weight 2022-09-21 13:02:00 99.791 kg Universi ty of [facility] BMI 2022-09-21 13:02:00 38.97 kg/m2 Universi ty of [facility] Systolic blood 2022-06-27 15:13:00 137 mm[Hg] Univer sity of pressure [facility] Diastolic blood 2022-06-27 15:13:00 72 mm[Hg] Unive rsity of pressure [facility] Heart rate 2022-06-27 15:07:00 68 /min Universi ty of [facility] Body height 2022-06-27 15:07:00 160 cm Universi ty of [facility] Body weight 2022-06-27 15:07:00 103.874 kg Universi ty of [facility] BMI 2022-06-27 15:07:00 40.57 kg/m2 [facility]i ty of [facility] [place] HEIGHT 2021-03-01 10:03:56 156.6 cm WEIGHT 2021-03-01 10:03:56 110.4 kg Body height 2021-03-01 12:54:00 160 cm Universi ty of [facility] Body weight 2021-03-01 12:54:00 111.9 kg Universi ty of [facility] BMI 2021-03-01 12:54:00 43.71 kg/m2 Universi ty of [facility] Systolic blood 2023-01-23 19:03:07 147 mm[Hg] Univer regla of pressure [facility] Diastolic blood 2023-01-23 19:03:07 59 mm[Hg] Unive rsity of pressure [facility] Heart rate 2023-01-23 19:03:07 62 /min Universi ty of [facility] Body temperature 2023-01-23 19:03:07 36.61 Meka Univ ersity of [facility] Respiratory rate 2023-01-23 19:03:07 16 /min Univ ersity of [facility] Body weight 2023-01-23 19:03:[address] [facility] BMI 2023-01-23 19:03:07 41.59 kg/m2 [facility] Oxygen saturation in 2023-01-23 19:03:07 93 /min University Arterial blood by [facility] Procedures Procedure Date / Time Performing Clinician Source Performed POCT GLUCOSE 2023-05-06 16:25:00 [facility] (AUTOMATED) Medical Branch POCT GLUCOSE 2023-05-06 12:45:00 [facility] (AUTOMATED) Medical Branch BASIC METABOLIC PANEL 2023-05-06 10:34:00 [facility] (NA, K, CL, CO2, Medical Branch GLUCOSE, BUN, CREATININE, CA) POCT GLUCOSE 2023-05-06 01:24:00 [facility] (AUTOMATED) Medical Branch POCT GLUCOSE 2023-05-05 22:12:00 [facility] (AUTOMATED) Medical Branch POCT GLUCOSE 2023-05-05 22:12:00 [facility] (AUTOMATED) Medical Branch POCT GLUCOSE 2023-05-05 16:24:00 [facility] (AUTOMATED) Medical Branch POCT GLUCOSE 2023-05-05 16:24:00 [facility] (AUTOMATED) Medical Branch BASIC METABOLIC PANEL 2023-05-05 16:14:00 [facility] (NA, K, CL, CO2, Medical Branch GLUCOSE, BUN, CREATININE, CA) EXTRA TUBE LAV 2023-05-05 16:14:00 Marlon [facility] [place] CREATINE KINASE 2023-05-05 16:14:00 [facility] [place] BASIC METABOLIC PANEL 2023-05-05 16:[facility]00 [facility] (NA, K, CL, CO2, Medical Branch GLUCOSE, BUN, CREATININE, CA) EXTRA TUBE LAV 2023-05-05 16:14:00 [facility] Medical Branch POCT GLUCOSE 2023-05-05 12:46:00 Lelia Minorlpa [facility] (AUTOMATED) Medical Branch POCT GLUCOSE 2023-05-05 12:46[facility]00 [facility]SE 2023-05-05 01:27[facility]00 [facility] POCT GLUCOSE 2023-05-05 01:27:00 [facility] (AUTOMATED) Medical Branch POCT GLUCOSE 2023-05-04 21:56:00 [facility] (AUTOMATED) Medical Branch POCT GLUCOSE 2023-05-04 21:56:00 [facility] (AUTOMATED) Medical Branch POCT GLUCOSE 2023-05-04 17:23[facility]00 [facility] POCT GLUCOSE 2023-05-04 17:23:00 [facility] (AUTOMATED) Medical Branch POCT GLUCOSE 2023-05-04 13:32:00 [facility] (AUTOMATED) Medical Branch POCT GLUCOSE 2023-05-04 13:32:00 [facility] (AUTOMATED) Medical Branch BASIC METABOLIC PANEL 2023-05-04 08:46:00 maggi [facility] (NA, K, CL, CO2, Medical Branch GLUCOSE, BUN, CREATININE, CA) BASIC METABOLIC PANEL 2023-05-04 08:46:00 maggi [facility] (NA, K, CL, CO2, Medical Branch GLUCOSE, BUN, CREATININE, CA) POCT GLUCOSE 2023-05-04 01:28:00 Lelia Minorlpa [facility] (AUTOMATED) Medical Branch POCT GLUCOSE 2023-05-04 01:28:00 Lelia Minorlpa [facility] (AUTOMATED) Medical Branch POCT GLUCOSE 2023-05-03 21:46:00 Lelia Minorlpa [facility] (AUTOMATED) Medical Branch POCT GLUCOSE 2023-05-03 21:46:00 Elena Minor [facility] (AUTOMATED) Medical Branch POCT GLUCOSE 2023-05-03 16:55:00 Elena Minor [facility] (AUTOMATED) [facility] Branch POCT GLUCOSE 2023-05-03 16:55:00 Elena Minor [facility] (AUTOMATED) [facility] Branch XR CHEST 1 VW 2023-05-03 16:26:00 [facility] XR LUMBAR SPINE 2 VW 2023-05-03 16:26:00 Homer Mcginnis [facility] XR KUB 2023-05-03 16:26:00 [facility] XR CHEST 1 VW 2023-05-03 16:26:00 [facility] XR LUMBAR SPINE 2 VW 2023-05-03 16:26:00 Homer Mcginnis [facility] XR KUB 2023-05-03 16:26:00 [facility] POCT GLUCOSE 2023-05-03 12:43:00 Elena Minor [facility] (AUTOMATED) [facility] POCT GLUCOSE 2023-05-03 12:43:00 [facility] (AUTOMATED) [facility] CREATINE KINASE 2023-05-03 11:20:00 Pradip [facility] URIC ACID 2023-05-03 11:20:00 Pradip [facility] MAGNESIUM 2023-05-03 11:20:00 David Alvin [facility] COMP. METABOLIC PANEL 2023-05-03 11:20:00 Alvin Hernandez [facility] ([id number]) [facility] CBC WITH DIFF 2023-05-03 11:20:00 Elena Minor [facility] CREATINE KINASE 2023-05-03 11:20:00 Pradip [facility] URIC ACID 2023-05-03 11:20:00 Pradip [facility] MAGNESIUM 2023-05-03 11:20:00 Alvin [facility] COMP. METABOLIC PANEL 2023-05-03 11:20:00 David Alvin [facility] ([id number]) Medical Branch CBC WITH DIFF 2023-05-03 11:20:00 Elena Minor [facility] BASIC METABOLIC PANEL 2023-05-03 03:26[facility], CO[facility] Branch GLUCOSE, BUN, CREATININE, CA) BASIC METABOLIC PANEL 2023-05-03 03:[facility], CL, CO2, Medical Branch GLUCOSE, BUN, CREATININE, CA) POCT GLUCOSE 2023-05-03 01:41:00 Elena Minor [facility] (AUTOMATED) Medical Branch POCT GLUCOSE 2023-05-03 01:41:00 Elena Minor [facility] (AUTOMATED) Medical Branch COMP. METABOLIC PANEL 2023-05-02 21:23:00 Elena Minor [facility] ([id number]) Medical Branch COMP. METABOLIC PANEL 2023-05-02 21:23:00 Elena Minor [facility] ([id number]) Medical Branch POCT GLUCOSE 2023-05-02 21:03:00 Elena Minor [facility] (AUTOMATED) Medical Branch POCT GLUCOSE 2023-05-02 21:03:00 Elena Minor [facility] (AUTOMATED) Medical Branch FL TIME OR 2023-05-02 16:33:47 Cosmo [facility] (NON-REPORTABLE) Medical Branch FL TIME OR 2023-05-02 16:33:47 Cosmo [facility] (NON-REPORTABLE) Medical Branch ISTAT ACUTE CARE 2023-05-02 16:16:00 Cosmo [facility] ARTERIAL Medical Branch ISTAT ACUTE CARE 2023-05-02 16:16:00 Cosmo [facility] ARTERIAL Medical Branch ISTAT ACUTE CARE 2023-05-02 15:15:00 Cosmo [facility] ARTERIAL Medical Branch ISTAT ACUTE CARE 2023-05-02 15:15:[address] [facility] ARTERIAL Medical Branch POSTERIOR LUMBAR 2023-05-02 12:46:00 [facility] Medical Branch POSTERIOR LUMBAR 2023-05-02 12:46:00 [facility]AL FUSION Medical Branch CT LUMBAR SPINE WO 2023-05-02 12:38:[facility] LUMBAR SPINE WO 2023-05-02 12:38:41 Peewee [facility] CONTRAST Medical Branch POCT GLUCOSE 2023-05-02 12:18:00 Cosmo [facility] (AUTOMATED) Medical Branch POCT GLUCOSE 2023-05-02 12:18:00 Cosmo [facility] (AUTOMATED) Medical Branch HB ABO GROUPING 2023-05-02 12:13:00 Carla Mcpherson [facility] HB ABO GROUPING 2023-05-02 12:13:00 Carla Mcpherson [facility] MEDICAL 2023-04-25 05:01:00 Doctor Unassigned, No [facility] RELEASE/CLEARANCE FORMS Name Medical Branch MEDICAL 2023-04-17 05:01:00 Doctor Unassigned, No [facility] RELEASE/CLEARANCE FORMS Name Medical Branch FL TIME OR 2023-04-15 16:42:[address] [facility] (NON-REPORTABLE) Medical [place] POCT GLUCOSE 2023-04-15 16:10:[address] [facility] (AUTOMATED) [facility] HB ECG ROUTINE & RHYTHM 2023-03-27 20:39:11 Robert Pierre [facility] Branch [facility] PATIENT FINANCIAL 2023-01-23 20:07:57 Doctor Unassigned, No [facility] POLICY Name Medical Branch MR LUMBAR SPINE WO 2022-12-27 20:15:30 Fazal Camargo [facility] CONTRAST Medical Branch ASSIGNMENT OF BENEFITS 2022-12-27 19:13:44 Doctor Unassigned, No [facility] Medical Branch ASSIGNMENT OF BENEFITS 2022-12-16 17:14:42 Doctor Unassigned, No [facility] Name Medical Branch MAGNESIUM 2022-09-21 13:19:00 Génesis Love [facility] TROPONIN I 2022-09-21 13:19:00 Génesis Love [facility] THYROID STIMULATING 2022-09-21 13:19:00 Génesis Love [facility] HORMONE [facility] COMP. METABOLIC PANEL 2022-09-21 13:19:00 Génesis Love [facility] ([id number]) [facility] CBC WITH DIFF 2022-09-21 13:19:00 Génesis Love [facility] NOTICE OF PRIVACY 2022-09-21 12:56:07 Doctor Unassigned, No [facility] PRACT[facility] Name [facility] CONSENT/REFUSAL FOR 2022-09-21 12:55:52 Doctor Unassigned, No [facility] DIAGNOSIS AND TREATMENT Name [facility] SARS-COV-2 COVID-19 2022-08-20 19:11:35 Doctor Unassigned, No [facility] VACCINE 18 YRS+, Name [facility] BIVALENT 0.5ML, IM (MODERNA BOOSTER) Plan of Care Planned Activity Planned Date Details Comments Source Future Scheduled 2023-04-18 COVID-19 Vaccination [facility] Test 11:07:15 (6 - Moderna series) MD Aryan putnam Cancer [code = COVID-19 Center Vaccination (6 - Moderna series)] Encounters Start End Encounter Admission Attending Care Care Encounter Source Date/Time Date/Time Type Type Clinicians Facility Department ID 2021-09-24 Emergency [facility] [id number] Univers 08:18:18 [facility] 2021-09-23 Inpatient MARIELA [facility] SCT [id number] Univers 22:03:06 SOHEILA [facility] 2023-08-11 2023-08-11 Outpatient Cecile PIERRE, [facility] [id number] Univers 14:00:00 14:00:00 ROBERT calderon [facility] 2023-07-29 2023-07-29 Outpatient Cecile SAUCEDO, [facility] [id number] Univers 13:00:00 13:00:00 JOAQUINA [facility] 2023-05-19 2023-05-19 Outpatient Cecile MONTGOMERY [facility] [id number] Univers 10:30:00 10:30:00 BLADE itdavid of [facility] 2023-05-02 2023-05-06 Inpatient R MARLON [facility] [id number] Univers 05:53:00 19:57:00 EDGARDO ity o f [facility] 2023-05-02 2023-05-06 [facility] 1.2.840.114 1 [id number] Univers 05:53:00 19:57:00 Encounter Elena Minor HEALTH 350.1.13.10 ity of Alvin Hernandez CLEAR 4.2.7.2.686 [place] Edgardo Mason DIXON [id number] [address] ([facility]) 2023-05-02 2023-05-02 Surgery [facility] 1.2.840.114 10 [id number] Univers 07:40:00 12:38:00 HEALTH 350.1.13.10 it y of [place] [id number] [address] ([facility]) 2023-04-30 2023-04-30 Refill Freddie [facility] 1.2.840.114 [id number] Univers 00:00:00 00:00:[address] [place] HEALTH 350.1.13.10 it y of [place] 4.2.7.2.686 Maximus as BERNADETTE?BLEA [id number] [facility] [address] MEDICAL OFFICE BUILDING 2023-04-30 2023-04-30 Patient Freddie [facility] 1.2.840.114 [id number] Univers 00:00:00 00:00:00 Secure Ms [place] HEALTH 350.1.13.10 ity of [place] 4.2.7.2.686 Maximus as BERNADETTE?BLEA [id number] [facility] [address] MEDICAL OFFICE BUILDING 2023-04-29 2023-04-29 Refill Leda TNANNA 1.2.840.114 [id number] Univers 00:00:00 00:00:00 Robert [place] 350.1.13.10 ity of [place].2.7.2.[place] [id number] Me dical NAL 059 [facility] 2023-04-29 2023-04-29 [facility]ill [facility] 1.2.840.114 [id number] Univers 00:00:00 00:00:00 [facility] 350.1.13.10 it y of [place] 4.2.7.2.686 Maximus as BERNADETTE?BLEA [id number] Nh dicreggie IQBAL [address] MEDICAL OFFICE [facility] 2023-04-25 2023-04-25 Orders Doctor ADI 1.2.840.114 [id number] Univers 00:00:00 00:00:00 Only Unassigned, FRANCISCO JAVIER 350.1.13.10 ity of [place] [facility] 4.2.7.2.686 Maximus as [id number] [address] 2023-04-24 2023-04-24 Office Sheryl [facility] 1.2.840.114 [id number] Univers 15:00:00 15:30:00 Visit [facility] 350.1.13.10 it y of [place] 4.2.7.2.686 Maximus as BERNADETTE?BLEA [id number] Nh dicreggie IQBAL 044 [facility] OFFICE [facility] 2023-04-24 2023-04-24 Outpatient R SHERYL [facility] [id number] Univers 15:00:00 15:00:00 JOAQUINA lopez of [facility] 2023-04-24 2023-04-24 Refill Freddie [facility] 1.2.840.114 [id number] Univers 00:00:00 00:00:00 [facility] 350.1.13.10 it y of [place] 4.2.7.2.686 Maximus as BERNADETTE?BLEA [id number] Nh dicreggie IQBAL [address] MEDICAL OFFICE [facility] 2023-04-23 2023-04-23 [employer], Ang - Db [facility] 1.2.840.1 14 [id number] Univers 09:45:00 10:07:19 Visit Joaquina Saucedo [facility] 350.1.13 .10 ity [facility] 4.2.7.2.686 Maximus as BERNADETTE?BLEA [id number] Nh dical RASHEED 353 [facility] OFFICE BUILDING 2023-04-23 2023-04-23 Outpatient R SHERYL [facility] [id number] Univers 09:45:00 09:45:00 JOAQUINA ity of [facility] 2023-04-20 2023-04-20 Patient [facility] 1.2.840.114 [id number] Univers 00:00:00 00:00:00 Secure Msg Qiakrunaljun [place] 350.1.13.10 ity of [facility] 4.2.7.2.686 [place] [id number] [place] [id number] [facility] 2023-04-19 2023-04-19 Refill [facility] 1.2.840.114 [id number] Univers 00:00:00 00:00:00 [facility] 350.1.13.10 it y of [place] 4.2.7.2.686 Maximus as BERNADETTE?BLEA [id number] [address] 2023-04-18 2023-04-18 Telephone [facility] 1.2.217.739 [id number] Univers 00:00:00 00:00:00 Redmemo [place] 350.1.13.10 ity of [place] 4.2.7.2.[place] [id number] [address] 2023-04-17 2023-04-17 Outpatient R ALEX WILBURN [facility] [id number] Univers 09:45:00 10:31:44 ity of [facility] 2023-04-17 2023-04-17 Prep For Alex Wilburn 1.2.840.114 1 [id number] Univers 00:00:00 00:00:00 Surgery FRANCISCO JAVIER 350.1.13.10 it y of [facility] 4.2.7.2.686 Maximus as [id number] [address] 2023-04-17 2023-04-17 Telephone [facility] 1.2.896.994 [id number] Univers 00:00:00 00:00:00 Qiangjun [place] 350.1.13.10 ity of [place] [facility] 4.2.7.2.686 [place] [id number] [address] 2023-04-16 2023-04-16 Outpatient [facility] [id number] Univers 14:30:00 15:13:28 SUKHJINDER jessica boothe f [facility] 2023-04-16 2023-04-16 Telemedici [facility] 1.2.840.114 [id number] Univers 14:30:00 15:13:28 ne Visit Sukhjinder ARIAS 350.1.13.10 ity of [place].2.7.2.[place] [facility] [id number] [facility] AND FIRESTONE [address] [facility] 2023-04-16 2023-04-16 Patient [facility] 1.2.840.114 [id number] Univers 00:00:00 00:00:00 Secure [facility] 350.1.13.10 ity of Ruben JENSEN 4.2.7.2.686 Maximus as BERNADETTE?BLEA [phone] [facility]John [facility] HospitalE[facility] [address] MEDICAL OFFICE BUILDING 2023-04-15 2023-04-15 Outpatient R [facility] [id number] Univers 10:48:38 23:59:00 BLADE lopez [facility] 2023-04-15 2023-04-15 [facility] 1.2.840.114 [id number] Univers 10:48:38 23:59:00 Encounter Blade ARIAS 350.1.13.10 ity of [place].2.7.2.686 [place] [id number] [facility] [address] [facility] 2023-04-15 2023-04-15 Office [facility] 1.2.840.114 [id number] Univers 11:00:00 11:30:00 Visit Blade ARIAS 350.1.13.10 ity of [place].2.7.2.[place] [id number] [facility] [address] [facility] 2023-04-10 2023-04-10 Out[facility] [id number] Univers 15:15:00 15:15:00 JOAQUINA lopez [facility] 2023-04-10 2023-04-10 Telephone [facility] 1.2.913.149 [id number] Univers 00:00:00 00:00:00 Blade ARIAS 350.1.13.10 it[place] of [place]2.7.2.[place] [id number] [address] [facility] 2023-04-10 2023-04-10 Telephone [facility] 1.2.222.521 [id number] Univers 00:00:00 00:00:00 Blade WALTONPEC 350.1.13.10 it[place] of [place].2.[place] [id number] [address] [facility] 2023-04-05 2023-04-05 Refgris PierrePRESBYTERIAN [facility] 1.2.840.114 [id number] Univers 00:00:00 00:00:00 Robert JENSEN 350.1.13.10 ity of [place] 4.2.7.2.686 [place] [id number] Nh aron TAO [address] [facility] 2023-04-01 2023-04-01 Telemedici CarolPRESBYTER[facility] 1.2.840.114 [id number] Univers 13:00:00 13:30:00 ne Visit Sukhjinder ARIAS 350.1.13.10 it[place] of [place].2.7.2.[place] [id number] [address] [facility] 2023-04-01 2023-04-01 Outpatient R CAROL [facility] [id number] Univers 13:00:00 13:00:00 SUKHJINDER lopez o cee [facility] 2023-04-01 2023-04-01 Blanche Saucedo [facility] 1.2.840.114 [id number] Univers 00:00:00 00:00:00 [facility] 350.1.13.10 it y of Ruben JENS[place] 4.2.7.2.686 Maximus as BERNADETTE?BLEA [id number] Nh aron RAPHAELEY [address] MEDICAL OFFICE BUILDING 2023-04-01 2023-04-01 Telephone [facility] 1.2.088.510 [id number] Univers 00:00:00 00:00:00 Robert JENSEN 350.1.13.10 ity of [place] [facility] 4.2.7.2.686 [place] [id number] Nh dical NAL 059 [facility] 2023-03-27 2023-03-27 Outpatient R [facility] [id number] Univers 15:20:00 16:04:03 ROBERT zazuetay o f [facility] 2023-03-27 2023-03-27 Office [facility]PRES[facility] 1.2.840.114 [id number] Univers 15:20:00 16:04:03 Visit Robert JENSEN 350.1.13.10 ity of [place] 4.2.7.2.[place] [id number] [address] 2023-03-25 2023-03-25 Outpatient R [facility] [id number] Univers 15:00:00 15:00:00 BLADE lopez [facility] 2023-03-25 2023-03-25 Outpatient R [facility] [id number] Univers 14:30:00 14:30:00 FAZAL lopez [facility] 2023-03-20 2023-03-20 Telephone Team, [facility] ADI 1.2.840.114 1 [id number] Univers 00:00:00 00:00:00 Health FRANCISCO JAVIER 350.1.13.10 it y of [facility] 4.2.7.2.[address] [place] [id number] [facility] [address] 2023-03-18 2023-03-18 Refill [facility]PRES[facility]TER[facility] 1.2.840.114 [id number] Univers 00:00:00 00:00:00 Robert JENSEN 350.1.13.10 ity of [facility] [facility] 4.2.7.2.686 [place] [id number] [facility] NAL [address] [place] [address] 2023-03-18 2023-03-18 Patient FreddiePRESBYTERIAN [facility] 1.2.840.114 [id number] Univers 00:00:00 00:00:00 Secure Msg Wentong MULTISPEC 350.1.13.10 ity of [place]2.7.2.[place] [id number] [facility] AND FIRESTONE [address] [facility] 2023-03-16 2023-03-16 Refgirs Frazier [facility] 1.2.840.114 [id number] Univers 00:00:00 00:00:[address] [place] HEALTH 350.1.13.10 it y of [place] 4.2.7.2.686 Maximus as BERNADETTE?BLEA [id number] [address] MEDICAL OFFICE BUILDING 2023-03-15 2023-03-15 Refgris Frazier [facility] 1.2.840.114 [id number] Univers 00:00:00 00:00:00 [facility] HEALTH 350.1.13.10 it y of [place] 4.2.7.2.686 Maximus as BERNADETTE?BLEA [id number] [address] 2023-03-13 2023-03-13 Ancillary Ravinder Medley [facility] 1.2.840. 114 [id number] Univers 15:15:00 16:00:00 Visit Fazal Camargo 350.1.13.10 ity of [place] 4.2.7.2.686 [place] [id number] Nh dical NAL 179 [facility] 2023-03-11 2023-03-11 Ancillary Joanna Medley [facility] 1.2.840 .114 [id number] Univers 14:30:00 15:15:00 Visit Fazal Camargo 350.1.13.10 ity of [place] 4.2.7.2.686 [place] [id number] Nh dical NAL 179 [facility] 2023-03-10 2023-03-10 Outpatient ALEX ALVAREZ [facility] [id number] Univers 11:15:00 11:54:34 ity of [facility] 2023-03-05 2023-03-05 Ancillary Ravinder Medley [facility] 1.2.840. 114 [id number] Univers 16:00:00 17:09:21 Visit Fazal Camargo 350.1.13.10 ity of [place] 4.2.7.2.686 [place] [id number] Nh dical NAL 179 [facility] 2023-02-27 2023-02-27 Ancillary Joanna Medley [facility] 1.2.840 .114 [id number] Univers 15:15:00 15:54:25 Visit Yadi Villarreal MATT 350.1.13.10 ity of Fazal [place] 4.2.7.2.686 [place] PROFESSIO [id number] Nh dical NAL 179 [facility] 2023-02-27 2023-02-27 Outpatient R ESTRELLITA, [facility] [id number] Univers 09:30:00 09:30:00 LENNIE [facility] 2023-02-26 2023-02-26 Outpatient R ALLISON, [facility] [id number] Univers 15:15:00 15:15:00 HARRIS [facility] 2023-02-18 2023-02-18 Outpatient R FREDDIE [facility] [id number] Univers 15:00:00 15:00:00 WENTPRITI [facility] 2023-02-17 2023-02-17 Ancillary Ravinder Medley [facility] 1.2.840. 114 [id number] Univers 13:45:00 14:30:00 Visit Fazal Camargo 350.1.13.10 ity of [place] 4.2.7.2.[place] [id number] Nh dical NAL 179 [facility] 2023-02-12 2023-02-12 Ancillary Joanna Medley [facility] 1.2.840 .114 [id number] Univers 13:00:00 14:00:18 Visit Fazal Camargo 350.1.13.10 ity of [place] 4.2.7.2.686 [place] [id number] Nh dical NAL 179 [facility] 2023-02-10 2023-02-10 Ancillary Hailey Crystal [facility] 1.2.840 .114 [id number] Univers 14:30:00 15:36:51 Visit Fazal Camargo 350.1.13.10 ity of [place] 4.2.7.2.686 [place] [id number] Nh dical NAL 179 [facility] 2023-02-10 2023-02-10 Refill Leda [facility] 1.2.840.114 [id number] Univers 00:00:00 00:00:00 Robert JENSEN 350.1.13.10 ity of [place] [facility] 4.2.7.2.686 [place] [id number] Nh dical NAL 059 [facility] 2023-02-10 2023-02-10 Refill Leda [facility] 1.2.840.114 [id number] Univers 00:00:00 00:00:00 Qiajanee JENSEN 350.1.13.10 ity of [place] [facility] 4.2.7.2.686 [place] [id number] Nh dical NAL 059 [facility] 2023-02-06 2023-02-06 Ancillary Ravinder Medley [facility] 1.2.840. 114 [id number] Univers 14:30:00 15:15:22 Visit Fazal Camargo 350.1.13.10 ity of [place] [facility] 4.2.7.2.686 [place] [id number] Nh dical NAL 179 [facility] 2023-02-04 2023-02-04 Ancillary Lola White [facility] 1.2. 840.114 [id number] Univers 15:15:00 16:00:00 Visit Fazal Camargo 350.1.13.10 ity of [place] [facility] 4.2.7.2.686 [place] [id number] Nh dical NAL 179 [facility] 2023-02-02 2023-02-02 Refill Freddie [facility] 1.2.840.114 [id number] Univers 00:00:00 00:00:00 [facility] 350.1.13.10 it y of [facility] 4.2.7.2.686 Maximus as BERNADETTE?BLEA [id number] Nh dical KNEY [address] [facility] BUILDING 2023-01-29 2023-01-29 Ancillary Ravinder Medley [facility] 1.2.840. 114 [id number] Univers 15:15:00 16:00:00 Visit Fazal Camargo 350.1.13.10 ity of [place] [facility] 4.2.7.2.686 [place] [facility] [id number] Nh dical NAL [address] BUILDING 2023-01-23 2023-01-23 Outpatient R [facility] [id number] Univers 14:30:00 15:28:45 BLADE ity of [facility] 2023-01-23 2023-01-23 Office [facility] 1.2.840.114 [id number] Univers 14:30:00 15:28:45 Visit Blade ARIAS 350.1.13.10 ity of [place] 4.2.7.2.686 [facility] Planosnow [facility] [id number] [facility] AND [address] DIABETES CLINIC 2023-01-23 2023-01-23 Follow-Up Nila Harding 1.2.840.1 [id number] Univers 13:00:00 13:15:58 Leah De Leon 09210.1.1 ity of 3.412.2.7 [place] .3.119141 .8 [facility] 2023-01-23 2023-01-23 Outpatient ESTELITA [facility] [id number] 12:47:54 13:15:58 NILA woodruff 2023-01-23 2023-01-23 Orders Doctor ADI 1.2.840.114 [id number] Univers 00:00:00 00:00:00 Only Unassigned, FRANCISCO JAVIER 350.1.13.10 ity of [place] [facility] 4.2.7.2.[id number] [facility] [address] 2023-01-23 2023-01-23 Travel 1.2.840.1 1.2.053.945 [id number] Univers 00:00:00 00:00:00 67620.1.1 350.1.13.41 ity of 3.412.2.7 2.[place].3.698 [place] .3.799736 084.8 .8 [facility] 2023-01-22 2023-01-22 Outpatient [facility] [id number] Univers 14:30:00 14:47:31 FAZAL ity of [facility] 2023-01-22 2023-01-22 Ancillary Ravinder Medley [facility] 1.2.840. 114 [id number] Univers 14:30:00 14:47:31 Visit Fazal CamargoSHAHBAZ 350.1.13.10 ity of [place] 4.2.7.2.[place] [id number] Nh dical NAL [address] [facility] 2023-01-21 2023-01-21 Ancillary Jud Seth [facility] 1.2.84 0.114 [id number] Univers 15:15:00 16:24:31 Visit Fazal Camargo 350.1.13.10 ity of [place] 4.2.7.2.686 [place] [id number] Nh dical [facility] 179 [facility] 2023-01-21 2023-01-21 Outpatient R LEDA [facility] [id number] Univers 14:20:00 14:20:00 ROBERT lopez o f [facility] 2023-01-17 2023-01-17 Patient [facility] 1.2.840.114 [id number] Univers 00:00:00 00:00:00 Secure Msg Joaquina HEALTH 350.1.13.10 ity of [place] 4.2.7.2.686 Maximus as BERNADETTE?BLEA [id number] Nh dical KNEY 044 [facility] BUILDING 2023-01-16 2023-01-16 Ancillary Ravinder Medley [facility] 1.2.840. 114 [id number] Univers 15:15:00 16:31:13 Visit Fazal CamargoSHAHBAZ 350.1.13.10 ity of [place] 4.2.7.2.[place] [id number] Nh dical NAL 179 [facility] 2023-01-16 2023-01-16 Telephone [facility] 1.2.840.114 [id number] Univers 00:00:00 00:00:00 Joaquina HEALTH 350.1.13.10 it y of [place] 4.2.7.2.686 Maximus as BERNADETTE?BLEA [id number] Nh dical KNEY 044 [facility] [place][note 2] 2023-01-16 2023-01-16 [facility] 1.2.840.114 [id number] Univers 00:00:00 00:00:00 Robert JENSEN 350.1.13.10 ity of [place] 4.2.7.2.[place] [id number] Nh dical NAL 059 [facility] 2023-01-16 2023-01-16 [facility] 1.2.840.114 [id number] Univers 00:00:00 00:00:00 Qiajanee JENSEN 350.1.13.10 ity of [place] 4.2.7.2.[place] [id number] Nh dical NAL 059 [facility] 2023-01-14 2023-01-14 Ancillary Lola White [facility] 1.2. 840.114 [id number] Univers 15:15:00 15:56:50 Visit Fazal Camargo 350.1.13.10 ity of [place] 4.2.7.2.686 [place] [id number] [facility] NAL 179 [facility] 2023-01-13 2023-01-13 Outpatient Cecile MONTGOMERY [facility] [id number] Univers 13:30:00 13:30:00 BLADE itdavid [facility] 2023-01-09 2023-01-09 Ancillary Ravinder Medley [facility] 1..840. 114 [id number] Univers 14:30:00 15:24:29 Visit Fazal Camargo 350.1.13.10 [place] of [place] 4.2.7.2.[place] [phone] Nh dical NAL 179 [facility] 2023-01-06 2023-01-06 Ancillary Hailey Crystal [facility] 1.2.840 .114 [id number] Univers 14:30:00 15:19:52 Visit Fazal Camargo 350.1.13.10 [place] [id number] Nh dical NAL 179 [facility] 2023-01-03 2023-01-03 Telephone [facility] 1.2.840.114 [id number] Univers 00:00:00 00:00:00 Fazal [facility] [id number] [place] [id number] [facility] [place] [address] OFFICE BUILDING 2023-01-02 2023-01-02 Outpatient R SHERYL [facility] [id number] Univers 15:00:00 15:34:02 JOAQUINA ity of [facility] 2023-01-02 2023-01-02 [facility] 1.2.840.114 [id number] Univers 15:00:00 15:34:02 Visit Joaquina [facility] 350.1.13.10 it y of [place] 4.2.7.2.686 Max[place] as BERNADETTE?BLEA [phone] Nh dical KNEY 044 [facility] [place][note 2] 2022-12-31 2022-12-31 Outpatient [facility] [id number] Univers 13:45:00 14:39:15 YADI ity [facility] 2022-12-31 2022-12-31 Ancillary Jud Seth [facility] 1.2.84 0.114 [id number] Univers 13:45:00 14:39:15 Visit Yadi Villarreal 350.1.13.10 ity [facility] [place] [phone] Nh dical NAL 179 [facility] 2022-12-27 2022-12-27 Out[facility] [id number] Univers 13:15:00 23:59:00 FAZAL ity of [facility] 2022-12-27 2022-12-27 [facility] 1.2.840.114 [id number] Univers 13:15:00 23:59:00 Encounter Fazal JENSEN 350.1.13.10 ity of [facility] 4.2.7.2.686 [place] [id number] [facility] [address] 2022-12-27 2022-12-27 Orders Doctor ADI 1.2.840.114 [id number] Univers 00:00:00 00:00:00 Only Unassigned, FRANCISCO JAVIER 350.1.13.10 ity of [place] [facility] 4.2.7.2.686 Maximus as [id number] [address] 2022-12-17 2022-12-17 Outpatient R FREDDIE [facility] [id number] Univers 11:30:00 11:30:00 WENTONG ity of [facility] 2022-12-17 2022-12-17 Telephone [facility] 1.2.604.131 [id number] [id number] Univers 00:00:00 00:00:00 [facility] HEALTH 350.1.13.10 it y of [place] 4.2.7.2.686 Maximus as BERNADETTE?BLEA [id number] Nh aron [address] MEDICAL OFFICE BUILDING 2022-12-16 2022-12-16 Office Fazal Camargo [facility] 1.2.840.11 4 [id number] Univers 11:15:00 11:30:00 [facility] 350.1.13.10 ity of [place].2.7.2.686 [place] [id number] [address] OFFICE BUILDING 2022-12-16 2022-12-16 Outpatient R COSMO, ALEX [facility] [id number] Univers 11:15:00 11:15:00 ity of [facility] 2022-12-16 2022-12-16 Orders Doctor JOSHI 1.2.840.114 [id number] Univers 00:00:00 00:00:00 Only Unassigned, FRANCISCO JAVIER 350.1.13.10 ity of [place] [facility] 4.2.7.2.686 Maximus as [id number] [address] 2022-12-13 2022-12-13 Telephone [facility] 1.2.292.127 [id number] [id number] Univers 00:00:00 00:00:00 Wentong MULTISPEC 350.1.13.10 ity of [place] 4.2.7.2.[address] [place] [address] [id number] [facility] AND RANDEE [address] [place] [address] [facility] CLIN[facility] 2022-12-12 2022-12-12 [employer], Ang - Db [facility] 1.2.840.1 14 [id number] Univers 10:45:00 11:42:53 Visit Joaquina Saucedo [facility] 350.1.13 .10 ity of [place] 4.2.7.2.686 Maximus as BERNADETTE?BLEA [id number] [facility] [address] MEDICAL OFFICE [facility] 2022-12-12 2022-12-12 Outpatient R SHERYL [facility] [id number] Univers 10:45:00 10:45:00 [facility] 2022-12-01 2022-12-01 Refill Freddie [facility] 1.2.840.114 [id number] Univers 00:00:00 00:00:00 [facility] 350.1.13.10 it y of [place] 4.2.7.2.686 Maximus as BERNADETTE?BLEA [id number] Me [facility] [address] [facility] OFFICE [facility] 2022-11-28 2022-11-28 Telephone [facility] 1.2.695.517 [id number] [id number] Univers 00:00:00 00:00:00 Qiajanee [place] 350.1.13.10 ity of [place].2.7.2.686 [place] [id number] [facility] NAL 9 [facility] 2022-11-28 2022-11-28 Patient Leda [facility] 1.2.840.114 [id number] Univers 00:00:00 00:00:00 Secure Msg Robert [place] 350.1.13.10 ity of [place] 4.2.7.2.686 [place] [id number] [facility] NAL [address] [place] [address] 2022-11-28 2022-11-28 Patient [facility] 1.2.840.114 [id number] Univers 00:00:00 00:00:00 Secure Msg [place] MULTISPEC 350.1.13.10 ity of [place] 4.2.7.2.[place] [address] [id number] [facility] AND RANDEE [address] [facility]INIC 2022-11-27 2022-11-27 Refgris Barriso [facility] 1.2.840.114 [id number] Univers 00:00:00 00:00:00 Navdeep JENSEN 350.1.13.10 ity of [place] 4.2.7.2.686 [place] [id number] [facility] NAL 059 [facility] 2022-11-26 2022-11-26 Blanche Frazier [facility] 1.2.840.114 [id number] 22 Univers 00:00:00 00:00:00 [facility] HEALTH 350.1.13.10 it y of [place] 4.2.7.2.686 Maximus as BERNADETTE?BLEA [id number] [address] OFFICE [facility] 2022-11-21 2022-11-21 Blanche Frazier [facility] 1.2.840.114 [id number] Univers 00:00:00 00:00:00 [facility] HEALTH 350.1.13.10 it y of [place] 4.2.7.2.686 Maximus as BERNADETTE?BLEA [id number] [address] OFFICE [facility] 2022-11-13 2022-11-13 Blanche Frazier [facility] 1.2.840.114 [id number] Univers 00:00:00 00:00:00 [facility] HEALTH 350.1.13.10 it y of [facility] 4.2.7.2.686 Maximus as BERNADETTE?BLEA [id number] [address] OFFICE [facility] 2022-11-06 2022-11-06 Blanche Pierre [facility] 1.2.840.114 [id number] Univers 00:00:00 00:00:00 Robert [facility] 350.1.13.10 ity of [place] 4.2.7.2.686 [place] [id number] [facility] NAL 059 [facility] 2022-10-08 2022-10-08 Blanche Pierre [facility] 1.2.840.114 [id number] Univers 00:00:00 00:00:00 Robert [place] 350.1.13.10 it[place] of [place] 4.2.7.2.686 [place] [id number] Me dical NAL 059 [facility] 2022-10-03 2022-10-03 Office Mehdi, 1.2.840.1 [id number] Univers 14:00:00 14:45:38 Visit Nila 24180.1.1 ity of 3.412.2.7 [place] .3.693122 .8 [facility] 2022-10-03 2022-10-03 Outpatient ESTELITA HARDING [facility] [id number] 13:46:57 14:45:38 NILA Harman woodruff 2022-10-03 2022-10-03 Travel 1.2.840.1 1.2.600.727 0139 [id number] Univers 00:00:00 00:00:00 43564.1.1 350.1.13.41 ity of 3.412.2.7 2.2.7.3.698 [place] .3.183213 084.8 .8 [facility] 2022-10-02 2022-10-02 Outpatient Cecile [facility] [id number] Univers 13:30:00 13:56:38 JOAQUINA ity [facility] 2022-10-02 2022-10-02 Office [facility] 1.2.840.114 [id number] Univers 13:30:00 13:45:00 Visit [facility] 350.1.13.10 it y of [place] 4.2.7.2.686 Maximus as BERNADETTE?BLEA [id number] Nh dical KNEY [address] [facility] OFFICE [facility] 2022-09-30 2022-09-30 Refill [facility] 1.2.840.114 [id number] Univers 00:00:00 00:00:00 Robert JENSEN 350.1.13.10 ity of [place] 4.2.7.2.686 [place] [id number] Nh dical NAL 059 [facility] 2022-09-24 2022-09-24 Telephone [facility] 1.2.327.937 [id number] Univers 00:00:00 00:00:00 Robert JENSEN 350.1.13.10 ity of [facility] 4.2.7.2.686 [place] [id number] Nh dical NAL [address] [place] [address] 2022-09-23 2022-09-23 Outpatient R LEDA [facility] [id number] Univers 15:00:00 15:18:34 ROBERT lopez o f [facility] 2022-09-23 2022-09-23 Office [facility]PRES[facility] 1.2.840.114 [id number] Univers 15:00:00 15:18:34 Visit Robert JENSEN 350.1.13.10 ity of [facility] 4.2.7.2.686 [place] [id number] [address] 2022-09-23 2022-09-23 Patient FreddiePRESBYTER[facility] 1.2.840.114 [id number] Univers 00:00:00 00:00:00 Secure [facility] 350.1.13.10 ity of [place] 4.2.7.2.686 Maximus as BERNADETTE?BLEA [phone] [address] OFFICE [facility] 2022-09-23 2022-09-23 Patient Freddie [facility] 1.2.840.114 [id number] Univers 00:00:00 00:00:00 Secure [facility] 350.1.13.10 ity of [place] 4.2.7.2.686 Maximus as BERNADETTE?BLEA [id number] [address] OFFICE [facility] 2022-09-21 2022-09-21 Emergency X [facility]PRES[facility] ERT [id number] Univers 08:05:00 09:34:00 GÉNESIS lopez of [facility] 2022-09-21 2022-09-21 Emergency Ivan [facility] 1.2.840.114 [id number] Univers 08:05:00 09:34:00 Génesis JENSEN 350.1.13.10 ity of [facility] 4.2.7.2.686 [place] [id number] [place] [address] 2022-09-21 2022-09-21 Orders Doctor JOSHI 1.2.840.114 [id number] Univers 00:00:00 00:00:00 Only Unassigned, FRANCISCO JAVIER 350.1.13.10 ity of [facility] 4.2.7.2.686 Maximus as [id number] [address] 2022-09-20 2022-09-20 Refill Freddie [facility] 1.2.840.114 [id number] Univers 00:00:00 00:00:00 [facility] 350.1.13.10 it y of [place] 4.2.7.2.686 Maximus as BERNADETTE?BLEA 231.3315437 [facility] [address] MEDICAL OFFICE [facility] 2022-08-27 2022-08-27 Outpatient R FREDDIE [facility] [id number] Univers 08:30:00 08:30:00 [facility] 2022-08-22 2022-08-22 Patient FreddiePRESBYTER[facility] 1.2.840.114 [id number] Univers 00:00:00 00:00:00 Secure Msg [facility] 350.1.13.10 ity of [place] 4.2.7.2.686 Maximus as BERNADETTE?BLEA [id number] [facility] [address] [facility] OFFICE [facility] 2022-08-20 2022-08-20 Imm/Inj Vaccine, Ang Db [facility] 1. 2.840.114 [id number] Univers 14:10:00 14:20:00 Visit Claudy [facility] 350.1.13.10 ity of [place] 4.2.7.2.686 Maximus as BERNADETTE?BLEA [id number] [facility] [address] MEDICAL OFFICE [facility] 2022-08-20 2022-08-20 Outpatient R CLAUDY [facility] [id number] Univers 14:10:00 14:10:00 [facility] 2022-08-20 2022-08-20 Outpatient R GAYATRI [facility] [id number] Univers 14:00:00 14:00:00 LARISA [facility] 2022-08-14 2022-08-14 Refill [facility] 1.2.840.114 [id number] Univers 00:00:00 00:00:00 Navdeep JENSEN 350.1.13.10 ity of [place].2.7.2.686 [place] [id number] [facility] 059 [facility] 2022-08-14 2022-08-14 Refill L[facility]PRES[facility] 1.2.840.114 [id number] Univers 00:00:00 00:00:00 Robert JENSEN 350.1.13.10 ity of [place] 4.2.7.2.686 [place] [id number] [place] [address]4959 [facility] 2022-08-08 2022-08-08 Refill FreddiePRESBYTER[facility] 1.2.840.114 [id number] Univers 00:00:00 00:00:00 [address] [place] 350.1.13.10 it y of [facility] 4.2.7.2.686 Maximus as BERNADETTE?BLEA [id number] [address] OFFICE [facility] 2022-07-23 2022-07-23 Outpatient R SHERYL [facility] [id number] Univers 14:15:00 14:15:00 JOAQUINA ity of [facility] 2022-07-09 2022-07-09 Patient SherylPRESBYTERIAN [facility] 1.2.840.114 [id number] Univers 00:00:00 00:00:00 Secure Msg Joaquina JENSEN 350.1.13.10 ity of [place] 4.2.7.2.686 [place] [id number] [facility] 044 [facility] 2022-07-04 2022-07-04 Patient FreddiePRESBYTER[facility] 1.2.840.114 [id number] Univers 00:00:00 00:00:00 Secure Msg [facility] 350.1.13.10 ity of [facility] 4.2.7.2.686 Maximus as BERNADETTE?BLEA [id number] [address] OFFICE [facility] 2022-07-04 2022-07-04 Refill FreddiePRESBYTERIAN [facility] 1.2.840.114 [id number] Univers 00:00:00 00:00:[address] HEALTH 350.1.13.10 it y of [place] 4.2.7.2.686 Maximus as BERNADETTE?BLEA 536.0011624 Me dicreggie IQBAL [address] [facility] OFFICE [facility] 2022-07-03 2022-07-03 Blanche MedleyPRESBYTERIAN S[facility] 1.2.840.114 [id number] 76 Univers 00:00:00 00:00:00 [facility] 350.1.13.10 it y of [place] 4.2.7.2.686 Maximus as BERNADETTE?BLEA 812.4956081 Me dicreggie IQBAL [address] [facility] OFFICE [facility] 2022-06-27 2022-06-27 Office SherylPRESBYTERIAN [facility] 1.2.840.114 [id number] Univers 10:15:00 10:30:00 Visit [facility] 350.1.13.10 it y of [place] [facility] 4.2.7.2.686 Maximus as BERNADETTE?BLEA 150.1861792 Me aron IQBAL 044 [facility][note 2] 2022-06-27 2022-06-27 Outpatient Cecile [facility] [id number] Univers 10:15:00 10:15:00 [facility] 2022-06-27 2022-06-27 Outpatient [facility] [id number] Univers 10:15:00 10:15:00 [facility] 2022-06-27 2022-06-27 Outpatient Cecile [facility] [id number] Univers 10:15:00 10:15:00 [facility] 2022-06-20 2022-06-20 Office Nila Harding 1.2.840.1 [id number] Univers 14:00:00 14:41:44 Visit Leah De Leon 37069.1.1 ity of 3.412.2.7 [place] .3.948699 .8 [facility] 2022-06-20 2022-06-20 Outpatient ESTELITA [facility]ING [facility] [id number] 13:47:18 14:41:44 NILA woodruff 2022-06-20 2022-06-20 [employer], Ang - [facility] 1.2.840.1 14 [id number] Univers 11:45:00 12:00:00 Visit Freddie [facility] 350.1.13.10 ity of [place] 4.2.7.2.686 Maximus as BERNADETTE?BLEA 768.6562328 Nh aron GEORGE [address] MEDICAL OFFICE [facility] 2022-06-20 2022-06-20 Outpatient R [facility] [id number] Univers 11:45:00 11:45:00 ANTWON ity [facility] 2022-06-20 2022-06-20 Travel 1.2.840.1 1.2.423.283 [id number] Univers 00:00:00 00:00:00 40115.1.1 350.1.13.41 ity of 3.412.2.7 2.[place].7.3.698 [place] .3.827556 084.8 .8 [facility] 2022-06-19 2022-06-19 Out[address] [address] [id number] Univers 13:30:00 13:30:00 AMANDA ity [facility] 2022-06-05 2022-06-05 Telemedici Marisa, 1.2.840.1 [id number] Univers 11:40:00 11:58:39 ne [place] 29415.1.1 ity of 3.412.2.7 [place] .3.018331 .8 [facility] 2022-06-05 2022-06-05 Outpatient [facility]ELITA [facility] [id number] 11:14:24 11:58:39 TEMAYRA woodruff 2022-06-03 2022-06-03 Blanche MedleyPRESBYTERIAN [facility] 1.2.840.114 [id number] Univers 00:00:00 00:00:00 Sully HEALTH 350.1.13.10 it y of [place] 4.2.7.2.686 Maximus as BERNADETTE?BLEA [id number] [facility] [address] [facility] OFFICE [facility] 2022-06-03 2022-06-03 Blanche Pierre [facility] 1.2.840.114 [id number] Univers 00:00:00 00:00:00 Robert JENSEN 350.1.13.10 ity of [place] 4.2.7.2.686 [place] [id number] Nh dical NAL 059 [facility] 2022-05-21 2022-05-21 Outpatient R LEDA [facility] [id number] Univers 14:20:00 14:41:21 ROBERT ity o f [facility] 2022-05-21 2022-05-21 Office Leda, [facility] 1.2.840.114 [id number] Univers 14:20:00 14:41:21 Visit Robert JENSEN 350.1.13.10 ity of [place] 4.2.7.2.686 [place] [id number] Nh natalie[address] 2022-05-21 2022-05-21 Outpatient R FREDDIE [facility] [id number] Univers 12:00:00 13:39:05 ULISESONG ity [facility] 2022-05-21 2022-05-21 Office Freddie, [facility] 1.2.840.114 [id number] Univers 12:00:00 13:39:05 Visit [facility] 350.1.13.10 it y of [place] 4.2.7.2.686 Maximus as BERNADETTE?BLEA [id number] Nh aron IQBAL [address] [facility] OFFICE [facility] 2022-05-21 2022-05-21 Outpatient R FREDDIE [facility] [id number] Univers 12:00:00 13:39:05 WENTONG ity [facility] 2022-05-21 2022-05-21 Outpatient R FREDDIE [facility] [id number] Univers 10:00:00 10:00:00 WENTONG ity [facility] 2022-05-20 2022-05-20 Patient Doctor [facility] 1.2.840.114 [id number] Univers 00:00:00 00:00:00 Secure Msg Unassigned, HEALTH 350.1.13.10 ity of [place].2.7.2.686 [place] [id number] [facility] [place] [address] OFFICE BUILDING 2022-05-17 2022-05-17 Outpatient R RANGASETTY, [facility] U TMB [id number] Univers 14:48:44 23:59:00 [facility] 2022-05-17 2022-05-17 [employer], Ang - Db [facility] 1.2.840.1 14 [id number] Univers 14:00:00 14:15:00 Visit Amanda Pino [facility] 350.1.13.10 ity of [place] 4.2.7.2.686 Maximus as BERNADETTE?BLEA 774.7936360 [facility] [address] MEDICAL OFFICE [facility] 2022-05-03 2022-05-03 Refill FreddiePRESBYTERIAN [facility] 1.2.840.114 [id number] Univers 00:00:00 00:00:[address] [place] HEALTH 350.1.13.10 it y of [place] 4.2.7.2.686 Maximus as BERNADETTE?BLEA 545.9266808 [facility] [address] [facility] OFFICE [facility] 2022-05-01 2022-05-01 Patient Vickie [facility] 1.2.840.114 [id number] Univers 00:00:00 00:00:00 Secure Msg [facility] 350.1.13.10 ity of [place] 4.2.7.2.686 [place] [id number] [place] [address] OFFICE [facility] 2022-04-17 2022-04-17 Outpatient [facility] [id number] Univers 14:03:53 23:59:00 AMANDA marbindavid [facility] 2022-04-17 2022-04-17 Hospital [facility] 1.2.840.114 [id number] Univers 14:03:53 23:59:00 Encounter Amanda [facility] 350.1.13.10 ity of [place] 4.2.7.2.686 [place] [id number] [facility] [address] 2022-04-17 2022-04-17 Outpatient [address] [facility] [id number] Univers 14:20:00 14:20:00 AMANDA itdavid [facility] 2022-04-15 2022-04-15 Outpatient R [facility] [id number] Univers 14:30:00 15:37:33 AMANDANKECHI lopez of [facility] 2022-04-15 2022-04-15 Office OdettePRES[facility] 1.2.840.114 [id number] Univers 14:30:00 15:37:33 Visit Amanda CHOU 350.1.13.10 it y of [facility] 4.2.7.2.686 Maximus as BERNADETTE?BLEA 120.5641960 [facility] [address] MEDICAL OFFICE [facility] 2022-04-11 2022-04-11 Case Marisa ELYSIA 1.2.840.114 [id number] Univers 00:00:00 00:00:00 Management Tejo H 350.1.13.10 ity of [place] 4.2.7.2.686 Maximus as [id number] [address] 2022-04-10 2022-04-10 [employer], Yash - [facility] 1.2.840.1 14 [id number] Univers 10:00:00 10:15:00 Visit Amanda Pino 350.1.13.10 ity of [facility] 4.2.7.2.686 Maximus as BERNADETTE?BLEA 153.7066290 [address] OFFICE [facility] 2022-04-10 2022-04-10 Outpatient [facility] [id number] Univers 10:00:00 10:00:00 AMANDA itdavid of [facility] 2022-03-19 2022-03-19 Case Carsoncoy ELYSIA 1.2.840.114 [id number] Univers 00:00:00 00:00:00 Management Tejo H 350.1.13.10 ity of [place] 4.2.7.2.686 Maximus as 224.1311254 [address] 2022-03-15 2022-03-15 Patient [facility] 1.2.840.114 [id number] Univers 00:00:00 00:00:00 Secure Msg Robert [place] 350.1.13.10 ity of [place] 4.2.7.2.686 [place] 509.7359084 Nh dical NAL [address] [place] [address] 2022-03-13 2022-03-13 Refgris PierrePRESBYTERIAN [facility] 1.2.840.114 [id number] Univers 00:00:00 00:00:00 Robert [place]ATT 350.1.13.10 ity of [facility]UNITED [place] [facility] 4.2.7.2.686 [place] [id number] Nh dical NAL [address] [place] [address] 2022-03-06 2022-03-08 Outpatient ESTELITA [facility] [id number] 18:32:51 01:33:42 HAN Harman o n 2022-02-25 2022-02-25 Imm/Inj Vaccine, Ang Db [facility] 1.2.840 .114 [id number] Univers 17:00:00 17:10:00 Visit [facility] 350.1.13.10 ity of [place] 4.2.7.2.686 Maximus as BERNADETTE?BLEA [id number] [address] OFFICE [facility] 2022-02-25 2022-02-25 Outpatient R AMBAR [facility] [id number] Univers 17:00:00 17:00:00 JONAH calderon [facility] 2022-02-20 2022-02-20 Outpatient ESTELITA [facility] [id number] 15:57:54 15:58:17 HAN Goddarders o n 2022-02-20 2022-02-20 Outpatient ESTELITA [facility] [id number] 12:55:16 15:52:20 HAN Harman o n 2022-02-18 2022-02-18 Blanche PierrePRESBYTERIAN [facility] 1.2.840.114 [id number] Univers 00:00:00 00:00:00 Robert JENSEN 350.1.13.10 ity of [place]UNITED [place] [facility] 4.2.7.2.686 [place] [id number] Nh dical NAL [address] [place] [address] 2022-02-14 2022-02-14 Outpatient R BELINDA [facility] [id number] Univers 13:30:00 13:30:00 DORCAS lopez of [facility] 2022-02-14 2022-02-14 Patient Frnacesalindavid [facility] 1.2.840.114 [id number] Univers 00:00:00 00:00:00 Secure Msg [facility] [id number] [id number] [id number] [address] OFFICE [facility] 2022-02-11 2022-02-11 Outpatient Cecile PEIRRE [facility] [id number] Univers 10:40:00 10:40:00 ROBERT lopez o f [facility] 2022-02-09 2022-02-09 [facility] 1.2.840.114 [id number] Univers 00:00:00 00:00:00 [facility] [id number] [id number] [phone] [address] OFFICE [facility] 2022-02-06 2022-02-06 Outpatient ESTELITA FRANCISCO, ROSA MDA [id number] 09:41:19 10:14:06 CHAVA woodruff 2022-02-04 2022-02-04 Outpatient ESTELITA KELLEYMAD, ROSA MDA [id number] 09:35:21 10:12:00 CHAVA woodruff 2022-02-01 2022-02-01 Outpatient ESTELITA KELLEYMAD, MDA MDA [id number] 09:22:52 09:59:33 CHAVA freed n 2022-01-31 2022-01-31 [employer] [facility] 1.2.840.114 [id number] Univers 16:15:00 16:30:00 Visit Cierra Pugh SPECIALTY [id number] [id number] AT [phone] Nh aron GOOD [address] [place] [address] 2022-01-31 2022-01-31 Office Ksenia Diaz [facility] 1.2.840.11 [id number] Univers 15:00:00 15:30:00 Visit Cierra Pugh SPECIALTY [id number] ity of CARE [id number] [facility] AT [phone] Nh aron Pe[address] [place] [address] 2022-01-31 2022-01-31 Outpatient Cecile PUGH [facility] [id number] Univers 15:00:00 15:00:00 CIERRA [facility] 2022-01-30 2022-01-30 Outpatient ESTELITA MARYAM, MDA MDA [id number] 09:33:40 10:10:13 CHAVA woodruff 2022-01-28 2022-01-28 Outpatient EL MEHDI, MDA MDA [id number] 06:00:00 23:59:00 NILA woodruff 2022-01-28 2022-01-28 Outpatient EL POTTS, MDA MDA [id number] 10:25:54 10:59:14 CARRIE woodruff 2022-01-28 2022-01-28 Outpatient EL POTTS, MDA MDA [id number] 09:35:27 10:38:35 CARRIE woodruff 2022-01-22 2022-01-22 Outpatient EL POTTS, MDA MDA [id number] MD 12:46:05 13:54:37 CARRIE woodruff 2022-01-22 2022-01-22 Outpatient EL POTTS, MDA MDA [id number] MD 10:32:24 13:54:32 CARRIE woodruff 2022-01-22 2022-01-22 Outpatient EL KARLEY, MDA MDA [id number] MD 09:54:13 12:05:59 EFRA woodruff 2022-01-22 2022-01-22 [facility] 1.2.840.114 [id number] Univers 00:00:00 00:00:00 Secure Msg Kapoor MULTISPEC 350.1.13.10 ity of [place] 4.2.7.2.686 [facility] [id number] [facility] MAXIME JEFF [address] [facility] 2022-01-21 2022-01-21 Outpatient Cecile PINO [facility] [id number] Univers 11:00:00 12:04:16 AMANDA lopez [facility] 2022-01-17 2022-01-17 Outpatient ESTELITA SUSAN MDA MDA [id number] 11:32:12 11:33:50 RHONDA woodruff 2022-01-17 2022-01-17 Outpatient ESTELITA MEHDIROSA MDA [id number] 09:21:56 11:33:40 NILA woodruff 2022-01-15 2022-01-16 Outpatient X AYAKOV [facility] [id number] Univers 01:09:00 13:35:00 [facility] 2022-01-15 2022-01-16 Emergency Lara Lamb [facility] 1.2.840 .114 [id number] Univers 01:09:00 13:35:00 Cyndi MonsalveHU [facility] 350.1.13.10 ity [facility] [place].2.7.2.686 [place] [phone] [address] 2022-01-15 2022-01-15 Outpatient R FREDDIE [facility] [id number] Univers 15:00:00 15:00:00 [facility] 2022-01-14 2022-01-14 [employer] Lab, Ang - Db [facility] 1.2.840.1 14 [id number] Univers 15:00:00 15:15:00 Visit Jonh [facility].1.13.[address] [facility] 4.2.7.2.686 Maximus as BERNADETTE?BLEA [phone] Nh natalie[address] OFFICE [facility] 2022-01-14 2022-01-14 Outpatient R [facility] [id number] Univers 15:00:00 15:00:00 [facility] 2022-01-11 2022-01-11 [employer] Lab, Ang - Db [facility] 1.2.840.1 14 [id number] Univers 15:45:00 16:00:00 [facility] 350.1.13.10 ity [facility] 4.2.7.2.686 Maximus as BERNADETTE?BLEA [id number] [address] OFFICE [facility] 2022-01-11 2022-01-11 Outpatient R JONH [facility] [id number] Univers 14:00:00 15:34:52 SULLY lopez [facility] 2022-01-11 2022-01-11 Outpatient R ODETTE [facility] [id number] Univers 13:30:00 14:16:55 AMANDA lopez [facility] 2022-01-11 2022-01-11 Office [facility] 1.2.840.114 [id number] Univers 13:30:00 14:16:55 Visit Amanda [facility] 350.1.13.10 it y of [place] 4.2.7.2.686 Maximus as BERNADETTE?BLEA [phone] Nh aron IQBAL 044 [facility] OFFICE [facility] 2022-01-11 2022-01-11 Outpatient R ODETTE [facility] [id number] Univers 13:30:00 14:16:55 AMANDA lopez [facility] 2022-01-11 2022-01-11 Outpatient R ODETTE [facility] [id number] Univers 13:30:00 13:30:00 AMANDA lopez [facility] 2022-01-09 2022-01-09 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, Adc Lab [facility] 1.2.840.114 [id number] Univers 14:00:00 14:04:51 Visit Linus Pierrejanee EDILSONSHAHBAZ 350.1.13.10 ity of [facility] 4.2.7.2.686 [place] [phone] Nh aron TAO 353 [facility] 2022-01-09 2022-01-09 Outpatient R LEDA [facility] [id number] Univers 14:00:00 14:00:00 ROBERT lopez o f [facility] 2022-01-09 2022-01-09 Office [facility] 1.2.840.114 [id number] Univers 13:20:00 13:54:04 Visit Robert JENSEN 350.1.13.10 ity of [place] [facility] 4.2.7.2.686 [place] [phone] Nh dical NAL 059 [facility] 2022-01-09 2022-01-09 Outpatient R LEDA, [facility] [id number] Univers 13:20:00 13:54:04 QIAKRUNALJUN ity o f [facility] 2022-01-09 2022-01-09 Outpatient R LEDA, [facility] [id number] Univers 13:20:00 13:54:04 QIANGJUN ity o f [facility] 2022-01-09 2022-01-09 Outpatient R LEDA, [facility] [id number] Univers 13:20:00 13:54:04 QIAJANEE ity o f [facility] 2022-01-08 2022-01-08 Transition RADHA Quiroz 1.2.840.114 [id number] Univers 00:00:00 00:00:00 of Care Vijaya SAEZ 350.1.13.10 it y of [place].2.7.2.686 [place] [phone] [place] [address] [address] 2022-01-07 2022-01-07 Patient Odette [facility] 1.2.840.114 [id number] Univers 00:00:00 00:00:00 Secure [facility] Osen 350.1.13.10 ity of [place] 4.2.7.2.686 Maximus as BERNADETTE?BLEA [phone] [address] MEDICAL OFFICE BUILDING 2021-12-22 2022-01-06 Inpatient [facility] [id number] Univers 16:59:00 17:00:00 PREMAL ity of [facility] 2021-12-22 2022-01-06 Hospital Génesis Love 1.2.84 0.114 [id number] Univers 16:59:00 17:00:00 Encounter Lorie Butler 350.1.13.10 ity of [facility] 4.2.7.2.686 Palma Engel [phone] Medical [facility] [address] 2022-01-04 2022-01-04 Telephone [facility] 1.2.128.597 [id number] Univers 00:00:00 00:00:00 [facility] 350.1.13.10 ity of [place] [phone] Nh [facility] 059 [facility] 2022-01-03 2022-01-03 Surgery [facility] 1.2.473.637 [id number] Univers 13:12:00 14:25:00 Coco ICAHi 350.1.13.10 ity of [place] 4.2.7.2.686 Maximus as [place] [id number] [address] 2021-12-31 2021-12-31 [facility] 1.2.840.114 [id number] Univers 15:30:00 16:20:00 Niels ICAL 350.1.13.10 it y of [place] 4.2.7.2.686 Maximus as [place] [phone] [address] 2021-12-26 2021-12-26 [facility] 1.2.840.114 [id number] Univers 15:30:00 16:26:00 Niels ICAL 350.1.13.10 it y of [place] 4.2.7.2.686 Maximus as [place] [id number] [address] 2021-12-25 2021-12-25 [facility] 1.2.840.114 [id number] Univers 08:00:00 08:48:00 Niels ICAL 350.1.13.10 it y of [place] 4.2.7.2.686 Maximus as [place]LD[place] [id number] [address] 2021-12-24 2021-12-24 Surgery [facility] 1.2.840.114 [id number] Univers 08:23:00 08:58:00 Niels ICAL 350.1.13.10 it y of [place] 4.2.7.2.686 Maximus as [place] [phone] [address] 2021-12-24 2021-12-24 Patient [facility] 1.2.840.114 [id number] Univers 00:00:00 00:00:00 Secure Msrishi JENSEN 350.1.13.10 ity of [place].2.[place] [phone] Nh dicreggie NAL 059 [facility] 2021-12-19 2021-12-19 Telephone [facility] 1.2.564.791 [id number] Univers 00:00:00 00:00:00 Sully HEALTH 350.1.13.10 it y of [place] 4.2.7.2.686 Maximus as BERNADETTE?BLEA [phone] Nh aron IQBAL [address] MEDICAL OFFICE [facility] 2021-12-18 2021-12-18 Orders Doctor ADI 1.2.840.114 [id number] Univers 00:00:00 00:00:00 Only Unassigned, FRANCISCO JAVIER 350.1.13.10 ity of [place] [facility] 4.2.7.2.686 Maximus as [phone] [address] 2021-12-17 2021-12-17 Outpatient R [facility] [id number] Univers 13:30:00 14:45:20 AMANDA ity [facility] 2021-12-17 2021-12-17 Office [facility] 1.2.840.114 [id number] Univers 13:30:00 14:45:20 Visit Amanda HEALTH 350.1.13.10 it y of [place] 4.2.7.2.686 Maximus as BERNADETTE?BLEA [id number] [facility]EL 044 [facility] OFFICE [facility] 2021-12-17 2021-12-17 Outpatient R ODETTE [facility] [id number] Univers 13:30:00 14:45:20 AMANDA ity [facility] 2021-12-17 2021-12-17 Orders Doctor JOSHI 1.2.840.114 [id number] Univers 00:00:00 00:00:00 Only Unassigned, FRANCISCO JAVIER 350.1.13.10 ity of [place] [facility] 4.2.7.2.686 Maximus as [id number] [address] 2021-12-15 2021-12-15 Orders Doctor JOSHI 1.2.840.114 [id number] Univers 00:00:00 00:00:00 Only Unassigned, FRANCISCO JAVIER 350.1.13.10 ity of [place] [facility]OSPITAL 4.2.7.2.[phone] [facility] [address] 2021-12-11 2021-12-11 Outpatient R MARLONSANDEEP [facility] [id number] Univers 10:30:00 10:30:00 AMANDA ity of [facility] 2021-12-07 2021-12-07 Transition RADHA Quiroz 1.2.840.114 [id number] Univers 00:00:00 00:00:00 of Care Vijaya SAEZ 350.1.13.10 it y of [place] 4.2.7.[place].[address] [place] [id number] [facility] [address] 2021-12-05 2021-12-06 Inpatient R HARDINGNILA [facility] OBO [id number] Univers 08:44:00 14:45:00 DANIELLE HARDINGYN jessica [facility] 2021-12-05 2021-12-06 Hospital LIDA Harding 1.2.840.114 [id number] Univers 08:44:00 14:45:00 Encounter Nila FRANCISCO JAVIER 350.1.13.10 ity of HOSPITAL 4.2.7.2.[phone] [facility] [address] 2021-12-05 2021-12-06 Inpatient R NILA HARDING [facility] OBO [id number] Univers 08:44:00 14:45:00 MEHDI NILA lopez [facility] 2021-12-05 2021-12-05 Surgery LIDA Harding 1.2.840.114 [id number] Univers 11:10:00 17:15:00 Nila MCINTYRE 350.1.13.10 it y of HOSPITAL 4.2.7.2.[phone] [facility] [address] 2021-12-05 2021-12-05 Orders Doctor JOSHI 1.2.840.114 [id number] Univers 00:00:00 00:00:00 Only Unassigned, FRANCISCO JAVIER 350.1.13.10 ity of [place] [facility]OSPITAL 4.2.7.2.[phone] [facility] [address] 2021-12-032021-12-03 Laboratory Only, Adc Test [facility] 1.2.840. 114 [id number] Univers 13:00:00 13:15:00 Only Blade Wilson 350.1.13.10 ity [facility] 4.2.7.2.686 [facility] [phone] [facility] [address] 2021-12-03 2021-12-03 Outpatient Cecile [facility] [id number] Univers 13:00:00 13:00:00 BLADE itdavid [facility] 2021-11-27 2021-11-27 Case Mehdi, [facility] 1.2.840.114 [id number] Univers 00:00:00 00:00:00 Management Nila CHOU 350.1.13.10 ity [facility] 4.2.7.2.[address] [facility] [phone] [facility] [address] 2021-10-26 2021-10-26 Outpatient Cecile [facility] [id number] Univers 15:00:00 15:00:00 AMANDA lopez [facility] 2021-10-26 2021-10-26 Orders Doctor ADI 1.2.840.114 [id number] Univers 00:00:00 00:00:00 Only Unassigned, FRANCISCO JAVIER 350.1.13.10 ity of [place] [facility] 4.2.7.2.686 [facility] [id number] [facility] [address] 2021-10-25 2021-10-25 Outpatient ESTELITA DAIVS MDA MDA [id number] 15:33:04 15:38:23 RHONDA woodruff 2021-10-25 2021-10-25 Outpatient ESTELITA HARDING MDA MDA [id number] 13:26:48 15:28:42 NILA woodruff 2021-10-23 2021-10-23 Outpatient Cecile PIERRE [facility] [id number] Univers 15:20:00 15:20:00 ROBERT calderon [facility] 2021-10-22 2021-10-22 Outpatient Cecile [address] [id number] Univers 15:30:00 15:30:00 [facility] 2021-10-20 2021-10-20 Refgris [facility]PRES[facility] 1.2.840.114 [id number] Univers 00:00:00 00:00:00 Navdeep MATT 350.1.13.10 ity [facility] 4.2.7.2.[place] [phone] [facility] 059 [facility] 2021-10-17 2021-10-17 Outpatient R [facility] [id number] Univers 15:00:00 15:00:00 [facility] 2021-10-17 2021-10-17 Outpatient R [facility] [id number] Univers 15:00:00 15:00:00 [facility] 2021-10-17 2021-10-17 Outpatient R [facility] [id number] Univers 15:00:00 15:00:00 [facility] 2021-10-17 2021-10-17 Case [facility] 1.2.883.821 [id number] Univers 00:00:00 00:00:00 Management Jud JENSEN 350.1.13.10 ity [facility] [place].2.7.2.[place] [phone] [facility] 179 [facility] 2021-10-16 2021-10-16 Outpatient R ODETTE [facility] [id number] Univers 11:30:00 11:30:00 AMANDA [facility] 2021-10-12 2021-10-12 Office [facility] 1.2.840.114 [id number] Univers 10:30:39 11:01:14 Visit Robert JENSEN 350.1.13.10 ity [facility] 4.2.7.2.[place] [id number] [facility] [address] [place] [address] 2021-10-12 2021-10-12 Outpatient R [facility] [facility] [id number] Univers 10:20:00 11:01:14 ROBERT lopez o f [facility] 2021-10-10 2021-10-10 Surgery LIDA Harding 1.2.840.114 [id number] Univers 16:03:00 17:56:00 Nila FRANCISCO JAVIER 350.1.13.10 it y [place] [address].2.7.2.[phone] [facility] [address] 2021-10-10 2021-10-10 Outpatient R NILA HARDING [facility] OBO [id number] Univers 13:39:00 17:05:00 NILA HARDING david [facility] 2021-10-10 2021-10-10 [facility] LIDA Harding 1.2.840.114 [id number] Univers 13:39:00 17:05:00 Encounter Nila MCINTYRE 350.1.13.10 ity [place] [address].2.7.2.[phone] [facility] [address] 2021-10-10 2021-10-10 Outpatient R NILA HARDING [facility] OBO [id number] Univers 13:39:00 17:05:00 NILA HARDING david [facility] 2021-10-10 2021-10-10 Outpatient R MEHDI NILA [facility] OBO [id number] Univers 15:40:00 15:40:00 NILA HARDING [facility] 2021-10-10 2021-10-10 Outpatient R CHERELLE [facility] [id number] Univers 13:00:00 13:00:00 [facility] 2021-10-10 2021-10-10 Outpatient R [facility] [id number] Univers 13:00:00 13:00:00 [facility] 2021-10-10 2021-10-10 Orders Doctor JOSHI 1.2.840.114 [id number] Univers 00:00:00 00:00:00 Only Unassigned, FRANCISCO JAVIER 350.1.13.10 ity of [place] [address].2.7.2.[phone] [facility] [address] 2021-10-03 2021-10-03 Blanche Bariros [facility] 1.2.840.114 [id number] Univers 00:00:00 00:00:00 [facility] 350.1.13.10 [place] of [place].2.[place] [phone] [facility] [place] [address] OFFICE BUILDING 2021-09-26 2021-09-26 Orders Doctor ADI 1.2.840.114 [id number] Univers 00:00:00 00:00:00 Only Unassigned, FRANCISCO JAVIER 350.1.13.10 ity of [place] HOSPITAL 4.2.7.2.[phone] [facility] [address] 2021-09-25 2021-09-25 Prep For CHATO JacobsonIT 1.2.840.114 [id number] Univers 00:00:00 00:00:00 Surgery Gayla Y HEALTH 350.1.13.10 i ty of CLINICS 4.2.7.2.[address] [place] [id number] [facility] [address] 2021-09-24 2021-09-24 Patient Carito Wilburnhi [facility] 1.2.840.114 [id number] Univers 00:00:00 00:00:00 Secure [facility] HEALTH 350.1.13.10 ity of [place].2.686 [place] [phone] [facility] [place] [address] OFFICE BUILDING 2021-09-21 2021-09-21 Outpatient R [facility] [id number] Univers 15:30:00 15:30:00 [facility] 2021-09-21 2021-09-21 Outpatient R [facility] [id number] Univers 13:00:00 13:56:41 [facility] 2021-09-21 2021-09-21 Office [facility] 1.2.840.114 [id number] Univers 12:59:05 13:56:41 Visit [facility] 350.1.13.10 it y of [place] 4.2.7.2.686 Maximus as BERNADETTE?BLEA [id number] [address] MEDICAL OFFICE BUILDING 2021-09-21 2021-09-21 Orders Doctor ADI 1.2.840.114 [id number] Univers 00:00:00 00:00:00 Only Unassigned, FRANCISCO JAVIER 350.1.13.10 ity of [place] [facility] 4.2.7.2.[id number] [facility] [address] 2021-09-21 2021-09-21 Telephone [facility] 1.2.028.317 [id number] Univers 00:00:00 00:00:00 Robert JENSEN 350.1.13.10 ity of [facility]UNITED [place] [facility] 4.2.7.2.[place] [phone] Nh dical NAL 059 [facility] 2021-09-20 2021-09-20 Outpatient ESTELITA HARDING [facility] [id number] 14:03:14 15:31:52 NILA woodruff 2021-09-18 2021-09-18 Telephone [facility] 1.2.626.427 [id number] Univers 00:00:00 00:00:00 Sully MULTISPEC 350.1.13.10 ity of [facility] 4.2.7.2.686 [place] GROSSE TETE [id number] [facility] AND FIRESTONE [address] DIABETES CLINIC 2021-09-15 2021-09-15 [employer] Worker Kael, Anastasia Lab Main [facility] 1.2.8 40.114 [id number] Univers 10:49:02 11:04:02 Visit Robert Pierre 350.1.13.10 ity of [place].7.2.686 [place] [phone] Nh dical nal 353 [facility] 2021-09-15 2021-09-15 Outpatient R [facility] [facility] [id number] Univers 09:00:00 09:00:00 ROBERT ity o f [facility] 2021-09-14 2021-09-14 Outpatient R [facility] [id number] Univers 08:00:00 08:00:00 ity of [facility] 2021-09-11 2021-09-11 Refill [facility] 1.2.840.114 [id number] Univers 00:00:00 00:00:00 Robert Jensen 350.1.13.10 ity of [place].2.[place] [phone] Nh dical nal 059 [facility] 2021-09-11 2021-09-11 Telephone Leda, [facility] 1.2.249.606 [id number] Univers 00:00:00 00:00:00 Robert Jensen 350.1.13.10 ity of [place] 4.2.7.2.686 [place] [phone] Nh dical nal 059 [facility] 2021-09-09 2021-09-09 Refill [facility] 1.2.840.114 [id number] Univers 00:00:00 00:00:00 Sully Jensen 350.1.13.10 i ty of [place] 4.2.7.2.686 [place] [phone] Nh dical nal 220 [facility] 2021-09-09 2021-09-09 Refgris FrazierPRESBYTER[facility] 1.2.840.114 [id number] Univers 00:00:00 00:00:00 Antwon Jensen 350.1.13.10 i ty of [place] 4.2.7.2.686 [place] [phone] Nh dical nal 220 [facility] 2021-09-07 2021-09-07 Outpatient EL ROSA GALE MDA [id number] 13:37:43 13:37:53 LATOYA woodruff 2021-09-06 2021-09-06 Outpatient EL MDA MDA [id number] 12:16:58 12:16:58 Harman woodruff 2021-09-05 2021-09-05 Orders Doctor JOSHI 1.2.840.114 [id number] Univers 00:00:00 00:00:00 Only Unassigned, FRANCISCO JAVIER 350.1.13.10 ity of [place] [facility] 4.2.7.2.686 Maximus as [id number] [address] 2021-08-30 2021-08-30 Outpatient EL ROSA HARDING MDA [id number] 14:36:34 15:51:16 NILA woodruff 2021-08-30 2021-08-30 Outpatient EL MDA MDA [id number] 15:48:55 15:50:14 Harman o n 2021-08-17 2021-08-17 Patient Leda, [facility] 1.2.840.114 [id number] Univers 00:00:00 00:00:00 Secure Msg Robert Matt 350.1.13.10 ity of [place].2.[place] [phone] Nh dical nal 059 [facility] 2021-08-17 2021-08-17 Patient Jonh, [facility] 1.2.840.114 [id number] Univers 00:00:00 00:00:00 Secure Msg [facility] 350.1.13.10 ity of [place] 4.2.7.2.686 Maximus as Bernadette?Blea [phone] Nh dical kney 220 [facility] Office [facility] 2021-08-16 2021-08-16 [facility] 1.2.840.114 [id number] Univers 09:33:57 10:52:43 Visit Dorcas Jensen 350.1.13.10 ity of [place].2.[place] [phone] Nh dical nal 134 [facility] 2021-08-16 2021-08-16 Outpatient R BELINDA [facility] [id number] Univers 09:30:00 09:30:00 DORCAS itdavid of [facility] 2021-08-16 2021-08-16 Refgris Barrios [facility] 1.2.840.114 [id number] Univers 00:00:00 00:00:00 Navdeep Jensen 350.1.13.10 ity of [place].2.[place] [phone] Nh dical nal 059 [facility] 2021-08-10 2021-08-10 Orders Doctor ADI 1.2.840.114 [id number] Univers 00:00:00 00:00:00 Only Unassigned, FRANCISCO JAVIER 350.1.13.10 ity of [place] HOSPITAL 4.2.7.2.686 Maximus as [phone] [address] 2021-08-09 2021-08-09 Refill Freddie [facility] 1.2.840.114 [id number] Univers 00:00:00 00:00:00 [facility] 350.1.13.10 it y of [place] 4.2.7.2.686 Maximus as BERNADETTE?BLEA [phone] [facility] [address] MEDICAL OFFICE BUILDING 2021-08-07 2021-08-07 Outpatient R LEDA [facility] [id number] Univers 14:00:00 14:00:00 ROBERT ity o f [facility] 2021-08-01 2021-08-01 Orders Doctor JOSHI 1.2.840.114 [id number] Univers 00:00:00 00:00:00 Only Unassigned, FRANCISCO JAVIER 350.1.13.10 ity of [place] HOSPITAL 4.2.7.2.[phone] [facility] [address] 2021-07-30 2021-07-30 Refill Jonh [facility] 1.2.840.114 [id number] Univers 00:00:00 00:00:00 Sully [place] 350.1.13.10 i ty of [place].2.[place] [phone] [facility] 220 [facility] 2021-07-27 2021-07-27 Letter ADI Pedersen 1.2.840.114 [id number] Univers 00:00:00 00:00:00 (Out) Nicole MCINTYRE 350.1.13.10 it y of HOSPITAL 4.2.7.2.[phone] [facility] [address] 2021-07-26 2021-07-26 Laboratory Only, Ang Db Test [facility] 1.2.8 40.114 [id number] Univers 11:59:48 12:14:[address] [facility] [id number] ity of [place] [id number] Maximus as Bernadette?Blea [phone] [facility] [address] [facility] 2021-07-26 2021-07-26 Outpatient R BRANDT [facility] [id number] Univers 12:10:00 12:10:00 DWAINE ity of [facility] 2021-07-24 2021-07-24 Outpatient R AMBAR [facility] [id number] Univers 15:00:00 15:00:00 JONAH ity o f [facility] 2021-07-19 2021-07-19 Office Odette [facility] 1.2.840.114 [id number] Univers 14:24:26 15:26:[address] [facility] [id number] it y of [place] [id number] Maximus as Bernadette?Blea [phone] Nh dical reginaey [address] [place] [address] Medical Office Building 2021-07-19 2021-07-19 Outpatient R ODETTE [facility] [id number] Univers 14:30:00 14:30:00 AMANDA lopez [facility] 2021-07-09 2021-07-09 Patient Doctor [facility] 1.2.840.114 [id number] Univers 00:00:00 00:00:00 Secure Msg Unassigned, HEALTH [id number] ity of [place] [id number] [phone] [address] OFFICE BUILDING 2021-07-06 2021-07-06 Outpatient R MARIELY GUZMAN [facility] [id number] Univers 11:00:00 11:00:00 MARIELY GUZMAN i ty of [facility] 2021-07-05 2021-07-05 Outpatient R ALEX WILBURN [facility] [id number] Univers 12:00:00 12:00:00 ity of [facility] 2021-07-04 2021-07-04 Outpatient R LEDA [facility] [id number] Univers 15:40:00 16:04:33 ROBERT jessica o f [facility] 2021-07-04 2021-07-04 Office [facility] 1.2.840.114 [id number] Univers 15:37:20 16:04:33 Visit Robert Jensen 350.1.13.10 it[place] of [place] [phone] Nh dical nal 059 [facility] 2021-07-04 2021-07-04 Office [facility] 1.2.840.114 [id number] Univers 15:37:20 16:04:33 Visit Robert JENSEN 350.1.13.10 ity of [facility] 4.2.7.2.686 [place]ESS[place] [phone] Nh dicwy NAL 059 [facility] 2021-07-04 2021-07-04 Outpatient R LEDA [facility] [id number] Univers 15:40:00 15:40:00 ROBERT ity o f [facility] 2021-07-03 2021-07-03 Office Faculty, Cardiology Valve [facility] 1.2.840.114 [id number] Univers 14:44:51 15:14:51 Visit [facility] 350.1.13 .10 [place] of [place].2.7.2.686 [place] [phone] [place] 65[address] [place] Office [facility] 2021-07-03 2021-07-03 Outpatient R [facility] U TMB [id number] Univers 14:00:00 14:00:00 [facility] 2021-07-03 2021-07-03 Orders Doctor ADI 1.2.840.114 [id number] Univers 00:00:00 00:00:00 Only Unassigned, FRANCISCO JAVIER 350.1.13.10 ity of [place] [facility] 4.2.7.2.686 Maximus as [phone] [address] 2021-06-19 2021-06-19 Office [facility] 1.2.840.114 [id number] Univers 14:30:58 15:34:38 Visit Sully Jensen 350.1.13.10 i ty of [place] 4.2.7.2.[place] [phone] Nh dical formerly [facility] 220 [facility] 2021-06-19 2021-06-19 Outpatient R JONH [facility] [id number] Univers 14:30:00 14:30:00 SULLY david [facility] 2021-06-19 2021-06-19 Orders Doctor ADI 1.2.840.114 [id number] Univers 00:00:00 00:00:00 Only Unassigned, FRANCISCO JAVIER 350.1.13.10 ity of [place] [facility] 4.2.7.2.[phone] [facility] [address] [place] 2021-06-18 2021-06-18 Telephone [facility], [facility] 1.2.366.320 [id number] Univers 00:00:00 00:00:00 Nicole Jensen 350.1.13.10 ity of [place] 4.2.7.2.[place] [phone] Nh dical formerly [facility] 188 [facility] 2021-06-14 2021-06-14 Outpatient R RUBA [facility] [id number] Univers 12:30:00 12:30:00 PITER itdavid of [facility] 2021-06-14 2021-06-14 Turf Farm Worker Kael, Anastasia Lab Main [facility] 1.2.8 40.114 [id number] Univers 11:38:49 11:53:49 Visit Piter Thao 350.1.13.10 ity of [place] 4.2.7.2.686 [place] [phone] Nh dical nal 353 [facility] 2021-06-11 2021-06-11 Refgris [facility]ierPRESBY[facility] 1.2.840.114 [id number] Univers 00:00:00 00:00:00 Antwon Jensen 350.1.13.10 i ty of [place] 4.2.7.2.[place] [phone] Nh dical nal 220 [facility] 2021-06-07 2021-06-07 Emergency [facility] 1.2.617.677 [id number] Univers 01:38:00 07:10:00 Lara Jensen 350.1.13.10 ity of [place] 4.2.7.2.686 [place] [phone] [facility] [address] [place] 2021-06-06 2021-06-06 Refill [facility]PRES[facility] 1.2.840.114 [id number] Univers 00:00:00 00:00:00 Antwon Jensen 350.1.13.10 i ty of [place] 4.2.7.2.686 [place] [phone] [address] 2021-06-04 2021-06-04 Telephone Brandt [facility] 1.2.868.608 [id number] Univers 00:00:00 00:00:00 Génesis K MULTISPEC 350.1.13.10 ity of [facility] 4.2.7.2.[address] [place] [address] [phone] [facility] AND [address] [facility] 2021-06-04 2021-06-04 Patient Freddie [facility] 1.2.840.114 [id number] Univers 00:00:00 00:00:00 Secure Msg Antwon [place] 350.1.13.10 ity of [place] 4.2.7.2.686 [place] [phone] [address] 2021-06-01 2021-06-01 Outpatient R JONH [facility] [id number] Univers 15:00:00 15:00:00 SULLY ity of [facility] 2021 2021 Refill [facility]PRES[facility] 1.2.840.114 [id number] Univers 00:00:00 00:00:00 Antwon Waggnoerton 350.1.13.10 i ty of [place] 4.2.7.2.[place] [phone] [address] 2021-05-28 2021-05-28 Outpatient ALEX ALVAREZ [facility] [id number] Univers 13:00:00 13:00:00 ity of [facility] 2021-05-25 2021-05-25 Telephone [facility] 1.2.842.694 [id number] Univers 00:00:00 00:00:00 Sully Jensen 350.1.13.10 i ty of [place] 4.2.7.2.686 [place] [phone] [address] 2021-05-21 2021-05-21 Outpatient R LEDA [facility] [id number] Univers 15:40:00 15:40:00 ROBERT marbiny o f [facility] 2021-05-16 2021-05-16 Nurse Nurse, Jocelyn Rodríguez Cardio [facility] 1.2. 840.114 [id number] Univers 14:14:40 14:44:[address] [facility] 350.1.13.10 ity of [facility] Clear 4.2.7.2.68 6 [place] [phone] [place] [address] Branch Office Building 2021-05-16 2021-05-16 Outpatient R VICKIE [facility] U TMB [id number] Univers 14:30:00 14:30:00 [facility] 2021-05-15 2021-05-15 Telephone ADI Cano 1.2.387.919 [id number] Univers 00:00:00 00:00:00 Penelope MCINTYRE 350.1.13.10 it y of HOSPITAL 4.2.7.2.686 Max[place] as [phone] [address] 2021-05-14 2021-05-14 Nurse Chante JOSHI 1.2.840.114 [id number] Univers 00:00:00 00:00:00 Triage FRANCISCO JAVIER Stephens 350.1.13.10 ity of [facility] 4.2.7.2.686 Maximus as [phone] [address] 2021-05-14 2021-05-14 Telephone Vickie [facility] 1.2.840.114 [id number] Univers 00:00:00 00:00:00 [facility] 350.1.13.10 ity of [place].686 [place] [phone] [address] Office Building 2021-05-14 2021-05-14 Transition Radha Quiroz 1.2.840.114 [id number] Univers 00:00:00 00:00:00 of Care Vijaya Saez 350.1.13.10 it y of [place] 4.2.7.2.[phone] [facility] [address] 2021-05-10 2021-05-11 Hospital Soheila [place] 1.2. 840.114 [id number] Univers 08:34:00 19:13:00 Encounter Marcus Holden Francisco Javier 350.1.1 3.10 ity of Hospital 4.2.7.2.[phone] [facility] [address] 2021-05-10 2021-05-10 Anesthesia RonnyDenae Lida 1.2.840.1 14 [id number] Univers 12:07:00 15:03:00 Event Kendall Ponce 350.1.13.10 ity of [facility] 4.2.7.2.[phone] [facility] [address] 2021-05-10 2021-05-10 Surgery Lida Sierra 1.2.840.114 [id number] Univers 11:00:00 14:45:00 Soehila Mcintyre 350.1.13.10 ity of [facility] 4.2.7.2.[phone] [facility] [address] 2021-05-07 2021-05-07 Turf Farm Worker Anastasia Scruggs Lab Main [facility] 1.2.8 40.114 [id number] Univers 13:36:40 13:51:40 Visit Navdeep Barrios 350.1.1 3.10 ity of [place] 4.2.7.2.[place] [phone] Nh dical formerly [facility] 353 [address] Building 2021-05-07 2021-05-07 Outpatient R VICKIE [facility] U TMB [id number] Univers 13:00:00 13:00:00 [facility] 2021-05-04 2021-05-04 Telephone Vickie [facility] 1.2.840.114 [id number] Univers 00:00:00 00:00:00 [facility] 350.1.13.10 [place] of [place].2.686 [place] [phone] [address] Office [facility] 2021-05-01 2021-05-01 Refgris Frazier [facility] 1.2.840.114 [id number] Univers 00:00:00 00:00:00 Antwon Jensen 350.1.13.10 i ty of [place] 4.2.7.2.[place] [phone] Nh dical formerly [facility] 220 [facility] 2021-05-01 2021-05-01 Refgris PierrePRESBYTERIAN [facility]ANT[facility] 1.2.840.114 [id number] Univers 00:00:00 00:00:00 Robert Waggonerton 350.1.13.10 ity of [place] 4.2.7.2.686 [place] [phone] [place] 228789 [facility] 2021-04-20 2021-04-20 Prep For ADI Walker 1.2.840.114 [id number] Univers 00:00:00 00:00:00 Surgery Shalini MCINTYRE 350.1.13.10 ity of [facility] 4.2.7.2.686 Max[place] as [phone] [address] 2021-04-18 2021-04-18 Telephone Vickie [facility] 1.2.840.114 [id number] Univers 00:00:00 00:00:00 [facility] 350.1.13.10 ity of [place] 4.2.7.2.686 [place] [phone] [address] Office [facility] 2021-04-17 2021-04-17 Office [facility]PRES[facility] 1.2.840.114 [id number] Univers 14:08:18 14:47:58 Visit [facility] 350.1.13.10 i ty of [place] 4.2.7.2.686 Maximus as Professio [phone] [facility] [address] [place] Office [facility] One 2021-04-17 2021-04-17 Outpatient R AMBAR [facility] [id number] Univers 14:00:00 14:00:00 JONAH lopez o f [facility] 2021-04-17 2021-04-17 Outpatient R LEDA [facility] [id number] Univers 13:40:00 13:40:00 ROBERT lopez o f [facility] 2021-04-16 2021-04-16 Outpatient R LEDA [facility] [id number] Univers 16:00:00 16:00:00 ROBERT lopez o f [facility] 2021-04-10 2021-04-11 [facility] 1.2 .840.114 [id number] Univers 15:22:00 17:54:00 Encounter Rey [facility] Disrupt6 350.1.13.10 ity of Provider, [facility] Cardiac Clear 4.2.7.2.68 6 [facility] [phone] [facility] [address] ([facility]) 2021-04-10 2021-04-10 Outpatient R [facility] [id number] Univers 14:00:00 14:00:00 ity of [facility] 2021-04-07 2021-04-07 Telephone Lida Barrios 1.2.840.114 [id number] Univers 00:00:00 00:00:00 [facility] 350.1.13.10 ity of [facility] 4.2.7.2.[phone] [facility] [address] 2021-04-06 2021-04-06 Turf Farm Worker Kael, Anastasia Lab Main [facility] 1.2.8 40.114 [id number] Univers 14:38:17 14:53:17 Visit Blade Wilson 350.1.13.10 ity of [facility] 4.2.7.2.68 6 [facility] [phone] Nh dical formerly [facility] 353 [address] Building 2021-04-06 2021-04-06 Laboratory Only, Adc Test [facility] 1.2.840. 114 [id number] Univers 14:31:26 14:46:26 Only Blade Wilson 350.1.13.10 ity of [facility] 4.2.7.2.68 6 [facility] [phone] [facility] [address] 2021-04-06 2021-04-06 Outpatient R [facility] T[facility] [id number] Univers 14:00:00 14:00:00 [facility] 2021-04-06 2021-04-06 Orders Doctor ADI 1.2.840.114 [id number] Univers 00:00:00 00:00:00 Only Unassigned, FRANCISCO JAVIER 350.1.13.10 ity of [place] HOSPITAL 4.2.7.2.[phone] [facility] [address] 2021-04-03 2021-04-03 Outpatient [address] [facility] [facility] [id number] Univers 11:00:00 11:00:00 JONAH lopez o f [facility] 2021-03-30 2021-03-30 Telephone [facility] 1.2.940.180 [id number] Univers 00:00:00 00:00:00 Robert Jensen 350.1.13.10 ity of [place].2.7.2.[place] [phone] [place] 752559 [facility] 2021-03-29 2021-03-29 Outpatient R YECENIAMICHAELCOPIAH COUNTY [facility] U TMB [id number] Univers 11:46:36 23:59:00 [facility]David[facility] 2021-03-29 2021-03-29 [facility] Lida Barrios 1.2.840.114 [id number] Univers 11:00:00 23:59:00 Encounter [facility] 350.1.13.10 ity of [facility] 4.2.7.2.[phone] [facility] [address] 2021-03-29 2021-03-29 Office NIRMALA Sierra 1.2.840.114 [id number] Univers 13:02:16 13:17:16 Visit Soheila CHOU 350.1.13.[address] [facility] 4.2.7.2.[address] [place] [phone] [facility] [address] 2021-03-29 2021-03-29 Outpatient R [facility]H [facility] U TMB [id number] Univers 00:00:00 00:00:00 VICKIE PR[facility]ISELECT [facility]ICAL [facility]y [facility] 2021-03-27 2021-03-27 Telephone Lida Barrios 1.2.840.114 [id number] Univers 00:00:00 00:00:00 [facility] 350.1.13.10 ity of Hospital 4.2.7.2.686 Max[place] as [phone] [address] 2021-03-22 2021-03-22 Telephone Lida Barrios 1.2.840.114 [id number] Univers 00:00:00 00:00:00 [facility] 350.1.13.10 ity of Hospital 4.2.7.2.686 Max[place] as [phone] [address] 2021-03-21 2021-03-21 Telephone Vickie [facility] 1.2.840.114 [id number] Univers 00:00:00 00:00:00 [facility] 350.1.13.10 ity of [place] [phone] [place] 65[address] [place] Office Building 2021-03-20 2021-03-20 [facility] 1.2 .840.114 [id number] [facility] 10:25:09 23:59:00 Encounter Anesthesia, [facility] Cardiac Cath Health 350.1.13.10 ity of Provider, [facility] Cardiac Clear 4.2.7.2.68 6 [facility] [phone] [address] ([facility]) 2021-03-20 2021-03-20 Outpatient R [facility] CCA [id number] Univers 12:30:00 12:30:00 ity of [facility] 2021-03-19 2021-03-19 Pre-Anesth Call, [facility] 1.2.840.114 [id number] Univers 07:45:00 07:50:[address] [facility] Phone HEALTH 350.1.13.10 ity of Evaluation [place] 4.2.7.2.686 [place] [phone] [address] ([facility]) 2021-03-162021-03-16 Outpatient R NAVDEEP BARRIOS [facility] U TMB [id number] Univers 12:00:00 12:00:00 NAVDEEP BARRIOS ity [facility] 2021-03-16 2021-03-16 Laboratory Only, Adc Test [place] 1.2.840. 114 [id number] Univers 10:50:22 11:05:22 Only [facility] 350.1.1 3.10 ity of [place] 4.2.7.2.686 [place] [facility] [phone] [facility] [address] 2021-03-16 2021-03-16 Turf Farm Worker Kael, Adc Lab Main [facility] 1.2.8 40.114 [id number] Univers 10:45:48 11:00:48 Visit Navdeep Barrios [place] 350.1.1 3.10 ity of [place] 4.2.7.2.686 [place] [phone] Me dical formerly [facility] [address] Building 2021-03-16 2021-03-16 Pre-Anesth Call, [facility] 1.2.840.114 [id number] Univers 10:05:00 10:10:[address] [facility] Phone HEALTH 350.1.13.10 ity of Evaluation [place] 4.2.7.2.686 [place] [phone] [facility] [address] ([facility]) 2021-03-14 2021-03-14 Patient Vickie [facility] 1.2.840.114 [id number] Univers 00:00:00 00:00:00 Secure Msg [facility] Disrupt6 350.1.13.10 ity of [place] 4[place]2.7.2.686 [place] [phone] [facility] 059 [address] Office Building 2021-03-13 2021-03-13 Refgris Haro [facility] 1.2.840.114 [id number] Univers 00:00:00 00:00:00 [facility] 350.1.13.10 it y of Surgical 4.2.7.2.686 Maximus as Specialti [phone] Me dical 198 [facility] 2021-03-08 2021-03-08 Outpatient R COSMO ALEX [facility] [id number] Univers 11:30:00 11:30:00 ity of [facility] 2021-03-08 2021-03-08 Refill [facility] 1.2.840.114 [id number] Univers 00:00:00 00:00:00 Health 350.1.13.10 it y of [place]2.7.2.[place] [phone] [facility] [address] [place] Office Building 2021-03-08 2021-03-08 Telephone Carito [facility]burnNewYork[facility] 1.2.840.114 [id number] Univers 00:00:00 00:00:00 Health 350.1.13.10 it y of [place] 4[place]2.7.2.686 [place] [phone] [address] Office Building 2021-03-07 2021-03-07 Telephone Vickie [facility] 1.2.840.114 [id number] Univers 00:00:00 00:00:00 [facility] 350.1.13.10 ity of [place] 4.2.7.2.686 [place] [phone] [place] 657789 [place] Office [facility] 2021-03-05 2021-03-05 Audioprosthologist 1, [facility] Diabetes Education [facility] 1.2.840.114 [id number] Univers 10:30:55 14:00:42 Visit Karishma Perkins MULTISPEC 350.1.13.10 ity of [place] 4.2.7.2.686 [place] C[place] [phone] [facility] AND FIRESTONE [address] [place] [facility] 2021-03-05 2021-03-05 Outpatient R KEITH [facility] [id number] Univers 09:00:00 09:00:00 KARISHMA ity of [facility] 2021-03-01 2021-03-01 Outpatient ESTELITA HARDING MDA MDA [id number] 09:41:48 11:40:50 NILA woodruff 2021-03-01 2021-03-01 Outpatient ESTELITA HARDING MDA MDA [id number] 09:34:29 09:38:22 NILA Hammer shyann woodruff 2021-03-01 2021-03-01 Pre-Anesth Call, [facility] 1.2.840.114 [id number] Univers 07:50:00 07:55:[address] [facility] Phone HEALTH 350.1.13.10 ity of Evaluation [place] 4.2.7.2.686 [place] [phone] [facility] [address] ([facility]) 2021-02-28 2021-02-28 Orders Doctor ADI 1.2.840.114 [id number] Univers 00:00:00 00:00:00 Only Unassigned, FRANCISCO JAVIER 350.1.13.10 ity of [place] HOSPITAL 4.2.7.2.[phone] [facility] 009 [address] 2021-02-28 2021-02-28 Telephone Vickie [facility] 1.2.840.114 [id number] Univers 00:00:00 00:00:00 [facility] 350.1.13.10 ity of [place]2.7.2.686 [place] [phone] [facility] 059 [address] Office Building 2021-02-27 2021-02-27 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, Adc Lab [facility] 1.2.840.114 [id number] Univers 15:40:08 15:55:08 Visit Antwon Frazier 350.1.13.10 ity of [place].2.[place].2.[place] [phone] Nh dicerggie tao [address] [facility] 2021-02-27 2021-02-27 Office Freddie [facility] 1.2.840.114 [id number] Univers 14:40:53 15:25:07 Visit Antwon Jensen 350.1.13.10 i ty of [place] 4.2.7.2.[place] [phone] Nh aron nal 220 [facility] 2021-02-27 2021-02-27 Outpatient Cecile FRAZIER [facility] [id number] Univers 14:30:00 14:30:00 ANTWON lopez [facility] 2021-02-26 2021-02-26 Outpatient EL HARDING, MDA MDA [id number] 13:32:43 14:18:04 NILA Goddarders o n 2021-02-23 2021-02-23 Telephone [facility] 1.2.840.114 [id number] [facility] 00:00:00 00:00:00 [facility] 350.1.13.10 ity of [place] 4.2.7.2.686 [place] [phone] [address] Office Building 2021-02-21 2021-02-21 Office [facility] 1.2.840.114 [id number] [facility] 14:10:11 14:40:11 Visit [facility] 350.1.13.10 ity of [place] 4.2.7.2.686 [place] av[place] [phone] [address] Office [facility] 2021-02-21 2021-02-21 Outpatient R [facility] U [facility] [id number] [facility] 14:30:00 14:30:00 [facility] 2021-02-21 2021-02-21 Outpatient EL HARDING, MDA MDA [id number] 11:10:58 11:10:58 NILA Goddarders o ranjan 2021-02-21 2021-02-21 Outpatient EL HARDING, MDA MDA [id number] 11:10:57 11:10:57 NILA Goddarders o ranjan 2021-02-21 2021-02-21 Outpatient EL HARDING, MDA MDA [id number] 11:10:55 11:10:55 NILA Harman o n 2021-02-21 2021-02-21 Outpatient EL HARDING, MDA MDA [id number] 11:10:53 11:10:53 NILA Harman o ranjan 2021-02-21 2021-02-21 Outpatient EL HARDING, MDA MDA [id number] 11:10:51 11:10:51 NILA Harman o n 2021-02-21 2021-02-21 Outpatient EL HARDING, MDA MDA [id number] 11:10:50 11:10:50 NILA Harman woodruff 2021-02-21 2021-02-21 Outpatient ESTELITA HARDING MDA MDA [id number] 11:10:48 11:10:48 NILA woodruff 2021-02-21 2021-02-21 Outpatient ESTELITA HARDING MDA MDA [id number] 11:10:47 11:10:47 NILA woodruff 2021-02-16 2021-02-16 Outpatient R RUBA [facility] [id number] Univers 11:30:00 11:30:00 PITER lopez [facility] 2021-02-16 2021-02-16 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, 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 [facility] 1.2.840.114 [id number] Univers 10:58:04 11:13:04 Visit Piter Thao 350.1.13.10 ity of [place] 4.2.7.2.[place] [phone] Nh dical formerly [facility] 353 [facility] 2021-02-15 2021-02-15 Office Donavan Archuleta [facility] 1.2.840.114 [id number] [facility] 08:58:04 10:23:33 Visit , Adc Surg Spec Procedure Matt 3 50.1.13.10 ity of [place] 4.2.7.2.[place] [phone] Nh dical nal 204 [facility] 2021-02-15 2021-02-15 Outpatient R KATHE [facility] [id number] Univers 09:00:00 09:00:00 DONAVAN lopez [facility] 2021-02-15 2021-02-15 Orders Doctor JOSHI 1.2.840.114 [id number] Univers 00:00:00 00:00:00 Only Unassigned, FRANCISCO JAVIER 350.1.13.10 ity of [place] [facility] 4.2.7.2.686 Maximus as [phone] [address] 2021-02-13 2021-02-13 Office Leda [facility] 1.2.840.114 [id number] Univers 14:22:54 14:52:43 Visit Robert Jensen 350.1.13.10 ity of [place] 4.2.7.2.686 [place] [phone] Nh dical nal [address] [facility] 2021-02-13 2021-02-13 Outpatient R LEDA [facility] [id number] Univers 14:20:00 14:20:00 LINUSNGMEMO ity o f [facility] 2021-02-13 2021-02-13 RefAlex Caicedo [facility] 1.2.840.114 [id number] Univers 00:00:00 00:00:00 SPECIALTY [id number] [id number] [phone] [facility] [address] 2021-02-13 2021-02-13 Blanche Haro [facility] [id number] Univers 00:00:00 00:00:00 [facility] [id number] it y of Surgical [id number] [employer] as Specialti [phone] Nh dical es [address] [facility] 2021-02-13 2021-02-13 Telephone [facility] 1.2.840.114 [id number] Univers 00:00:00 00:00:00 Health [id number] [id number] [id number] [facility] [address] 2021-02-09 2021-02-09 Outpatient R CHERELLE [facility] [id number] Univers 13:00:00 13:00:00 YADI lopez of [facility] 2021-02-09 2021-02-09 Ancillary Vickie Sandoval [facility] 1.2.840. 114 [id number] Univers 11:06:39 11:44:00 Visit Yadi Villarreal 350.1.13.10 [place] [phone] Nh dical nal 179 [facility] 2021-02-08 2021-02-08 Telephone [facility] 1.2.085.587 [id number] Univers 00:00:00 00:00:00 Dorcas L [place] 350.1.13.10 [place] [phone] Me dical nal 134 [address] [facility] 2021-02-07 2021-02-07 [facility] 1.2.840.114 [id number] Univers 10:34:18 23:59:00 Encounter Dorcas L [place] 350.1.13.10 [place] [phone] [facility] [address] 2021-02-07 2021-02-07 [facility] 1.2.840.114 [id number] Univers 10:30:00 10:33:00 Encounter Dorcas L [place] 350.1.13.10 [place] [phone] [facility] [address] 2021-02-07 2021-02-07 Outpatient R [facility] [id number] Univers 00:00:00 00:00:00 [facility] 2021-02-05 2021-02-05 [facility] 1.2.840.114 [id number] Univers 16:40:55 23:59:00 Encounter Lennie Avendñao [place] 350.1.13.10 [place] [phone] [facility] [address] 2021-02-05 2021-02-05 Office [facility] 1.2.840.114 [id number] Univers 15:07:05 16:25:05 Visit Lennie [facility] 350.1.13.10 it y of Surgical 4.2.7.2.686 Max[place] as Specialti [phone] Nh dical es 198 [facility] 2021-02-05 2021-02-05 Outpatient R [facility] [id number] Univers 15:45:00 15:45:00 LENNIE lopez [facility] 2021-01-30 2021-01-30 Outpatient R ODETTE [facility] [id number] Univers 15:20:00 15:20:00 AMANDA lopez [facility] 2021-01-30 2021-01-30 Telephone [facility] 1.2.814.290 [id number] Univers 00:00:00 00:00:00 Nicolejuliet Jensen 350.1.13.10 [place] [phone] Nh dical nal 204 [address] [facility] 2021-01-26 2021-01-26 Hospital Adelina, [facility] 1.2.840.114 [id number] Univers 11:36:28 23:59:00 Encounter Nicole Martins HEALTH 350.1.13.10 [place] [phone] [address] 2021-01-26 2021-01-26 Outpatient R [facility] [id number] [facility] 11:34:59 11:35:00 NICOLE ity of [facility] 2021-01-26 2021-01-26 Critical access hospital 1.2.840.114 [id number] Univers 11:30:00 11:35:00 Encounter Nicole Martins HEALTH 350.1.13.10 [place] [phone] [address] 2021-01-25 2021-01-25 Office [facility] 1.2.840.114 [id number] Univers 13:01:37 13:16:37 Visit Health 350.1.13.10 [place] [phone] [address] Office Building 2021-01-25 2021-01-25 Outpatient R ALEX WILBURN [facility] [id number] Univers 13:00:00 13:00:00 ity of [facility] 2021-01-24 2021-01-24 Laboratory Pc, Adc Echo Room 1 [facility] 1 .2.840.114 [id number] Univers 14:58:04 15:58:04 Only Radha Echeverria 350.1.13. 10 [place] [phone] Nh dical nal 059 [facility] 2021-01-24 2021-01-24 Outpatient R [facility] [id number] Univers 15:00:00 15:00:00 ity of [facility] 2021-01-23 2021-01-23 [facility] [id number] Univers 15:43:51 23:59:00 JONAH ity o f [facility] 2021-01-23 2021-01-23 Hospital [facility] 1.2.295.076 [id number] Univers 15:20:00 23:59:00 Encounter Jonah Jensen 350.1.13.10 it[place] of [place] [phone] [facility] [address] 2021-01-23 2021-01-23 Office [facility] 1.2.840.114 [id number] Univers 13:58:27 15:11:47 Visit Dorcas Jensen 350.1.13.10 [place] of [place] [phone] Nh dical nal 134 [facility] 2021-01-23 2021-01-23 Orders Doctor ADI 1.2.840.114 [id number] Univers 00:00:00 00:00:00 Only Unassigned, FRANCISCO JAVIER 350.1.13.10 ity of [place] [facility] 4.2.7.2.[phone] [facility] [address] 2021-01-22 2021-01-22 Office [facility] 1.2.840.114 [id number] Univers 13:40:00 14:20:00 Visit Jose Jensen 350.1.13.10 [place] of [place] [phone] Nh dical nal 092 [facility] 2021-01-22 2021-01-22 Outpatient R JOSE HERNANDEZ [facility] [id number] Univers 13:40:00 13:40:00 JOSE HERNANDEZ ity of [facility] 2021-01-16 2021-01-16 Office [facility] 1.2.840.114 [id number] Univers 09:21:11 10:23:[address] [facility] 350.1.13.10 i ty of [place] 4.2.7.2.686 Max[place] as Professio [phone] [facility] [address] One 2021-01-16 2021-01-16 Outpatient [address] [facility] [facility] [id number] Univers 09:00:00 09:00:00 JONAH marbindavid o [facility] 2021-01-08 2021-01-08 Outpatient R [facility] [id number] Univers 10:00:00 10:00:00 SENDIL [facility] 2020-12-29 2020-12-29 Outpatient R [facility] [id number] Univers 15:40:00 15:40:00 JANNIE [facility] 2020-12-29 2020-12-29 Telephone [facility]PRES[facility] 1.2.865.351 [id number] Univers 00:00:00 00:00:00 Wentong [place] 350.1.13.10 i [place] [phone] Nh dical nal 220 [facility] 2020-12-28 2020-12-28 [facility] 1.2.840.114 [id number] Univers 14:24:04 23:59:00 Encounter Robert Jensen 350.1.13.10 it[place] of [place] [phone] [facility] [address] 2020-12-28 2020-12-28 Outpatient R [facility]AM[facility] [id number] Univers 14:45:00 14:45:00 ROBERT boothe [facility] 2020-12-28 2020-12-28 [employer] Anastasia Scruggs Lab Main [facility] 1.2.8 40.114 [id number] Univers 14:23:11 14:38:11 Visit Robert Pierre 350.1.13.10 [place] of [place] [phone] Nh dical nal 353 [facility] 2020-12-26 2020-12-26 Office [facility] 1.2.840.114 [id number] Univers 15:07:44 15:56:39 Visit Robert Jensen 350.1.13.10 it[place] of [place].2.[place] [phone] Nh dical nal 059 [facility] 2020-12-26 2020-12-26 Outpatient R [facility] [id number] Univers 15:00:00 15:00:00 ROBERT lopez o f [facility] 2020-12-22 2020-12-22 Telephone [facility] 1.2.668.607 [id number] Univers 00:00:00 00:00:00 Nicole Jensen 350.1.13.10 [place] of [place] [phone] Nh dical nal 204 [facility] 2020-12-21 2020-12-21 Orders Doctor ADI 1.2.840.114 [id number] Univers 00:00:00 00:00:00 Only Unassigned, FRANCISCO JAVIER 350.1.13.10 ity of [place] [facility] 4.2.7.2.686 Max[place] as [phone] [address] 2020-12-20 2020-12-20 Office [facility]PRES[facility] 1.2.840.114 [id number] Univers 13:40:08 14:25:13 Visit Nicole Jensen 350.1.13.10 it[place] of [place] [phone] Nh dical nal 204 [facility] 2020-12-20 2020-12-20 Outpatient R [facility] [id number] Univers 13:30:00 13:30:00 NICOLE lopez of [facility] 2020-12-18 2020-12-18 Telephone [facility]PRES[facility] 1.2.147.791 [id number] Univers 00:00:00 00:00:00 Antwon Jensen 350.1.13.10 i [place] [phone] Nh dical nal 220 [facility] 2020-12-06 2020-12-06 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, Adc Lab [facility] 1.2.840.114 [id number] Univers 08:26:54 08:41:54 Visit Antwon Frazier 350.1.13.10 it[place] of [place] [phone] Nh dical nal 353 [facility] 2020-12-06 2020-12-06 Outpatient R [facility] [id number] Univers 08:00:00 08:00:00 ity [facility] 2020-12-01 2020-12-01 Outpatient R AJAY [facility] [id number] Univers 15:30:00 15:30:00 JANNIE ity [facility] 2020-11-28 2020-11-28 Orders Doctor JOSHI 1.2.840.114 [id number] Univers 00:00:00 00:00:00 Only Unassigned, FRANCISCO JAVIER 350.1.13.10 ity of [place] [facility] 4.2.7.2.[phone] [facility] [address] 2020-11-15 2020-11-15 Office Freddie [facility] 1.2.840.114 [id number] Univers 14:36:21 16:02:33 Visit Antwon Jensen 350.1.13.10 i ty of [place] [phone] Nh dical formerly [facility] 220 [facility] 2020-11-15 2020-11-15 Outpatient R FREDDIE [facility] [id number] Univers 14:30:00 14:30:00 [facility] 2020-11-15 2020-11-15 Orders Doctor JOSHI 1.2.840.114 [id number] Univers 00:00:00 00:00:00 Only Unassigned, FRANCISCO JAVIER 350.1.13.10 ity of [place] [facility] 4.2.7.2.686 Maximus as [phone] [facility] keily [address] 2020-10-27 2020-10-27 Orders Doctor JOSHI 1.2.840.114 [id number] Univers 00:00:00 00:00:00 Only Unassigned, FRANCISCO JAVIER 350.1.13.10 ity of [place] [facility] 4.2.7.2.686 Max[place] as [phone] [address] 2020-09-28 2020-09-28 Orders Doctor ADI 1.2.840.114 [id number] Univers 00:00:00 00:00:00 Only Unassigned, FRANCISCO JAVIER 350.1.13.10 ity of [place] [facility] 4.2.7.2.686 Max[place] as [phone] [address] 2020-09-28 2020-09-28 Orders Doctor ADI 1.2.840.114 [id number] 00:00:00 00:00:00 Only Unassigned, FRANCISCO JAVIER 350.1.13.10 [place] [facility] [phone] [facility] 2020-08-04 2020-08-04 Orders Doctor ADI 1.2.840.114 [id number] Univers 00:00:00 00:00:00 Only Unassigned, FRANCISCO JAVIER 350.1.13.10 ity of [place] [facility] 4.2.7.2.686 Max[place] as [phone] [address] 2020-08-04 2020-08-04 Orders Doctor ADI 1.2.840.114 [id number] 00:00:00 00:00:00 Only Unassigned, FRANCISCO JAVIER 350.1.13.10 [place] [facility] [phone] 2019-09-12 2019-09-18 Inpatient 3 [facility] [id number] [employer] 00:12:00 11:00:00 [facility] [address] [facility] [place] 2019-08-02 2019-08-02 [employer] Worker 1, Adc Lab [facility] 1.2.840.114 [id number] [facility] 15:22:57 15:37:57 Visit Christian Whitman 350.1.13.10 ity of [place] 4[place]2.7.2.686 [place] [facility] [phone] [address] 2019-08-02 2019-08-02 [employer] Worker 1, Adc Lab [facility] 1.2.840.114 [id number] 15:22:57 15:37:57 Visit Matt 350.1.13.10 [place] 4.2.7.2.686 [place] [phone] [id number] 2019-08-02 2019-08-02 Orders Doctor DAI 1.2.840.114 [id number] Univers 00:00:00 00:00:00 Only Unassigned, FRANCISCO JAVIER 350.1.13.10 ity of [place] [facility] 4.2.7.2.686 [facility] as [phone] [facility] [address] 2019-08-02 2019-08-02 Orders Doctor ADI 1.2.840.114 [id number] 00:00:00 00:00:00 Only Unassigned, FRANCISCO JAVIER 350.1.13.10 [place] [facility] [phone] 009 Results Test Description Test Time Test Comments Results Result Comments Source POCT GLUCOSE (AUTOMATED) 2023-05-06 16:54:44 Test Item Value Reference Range Interpretation Comme nts POCT GLU (test code = 6571629832) 237 mg/dL 70-110 H Lab Interpretation (test code = 50883-4) Abnormal [facility] GLUCOSE (AUTOMATED)2023-05-06 12:50:32 Test Item Value Reference Range Interpretation Comments POCT GLU (test code = 0623176253) 202 mg/dL 70-110 H Lab Interpretation (test code = Abnormal 47378-7) [facility] GLUCOSE (AUTOMATED)2023-05-06 01:25:54 Test Item Value Reference Range Interpretation Comments POCT GLU (test code = 3344273134) 205 mg/dL 70-110 H Lab Interpretation (test code = Abnormal 14533-9) [facility] GLUCOSE (AUTOMATED)2023-05-05 22:12:59 Test Item Value Reference Range Interpretation Comments POCT GLU (test code = 4691349080) 247 mg/dL 70-110 H Lab Interpretation (test code = Abnormal 05044-1) [facility] GLUCOSE (AUTOMATED)2023-05-05 22:12:59 Test Item Value Reference Range Interpretation Comments POCT GLU (test code = 3290184359) 247 mg/dL 70-110 H Lab Interpretation (test code = Abnormal 53136-7) [facility] GLUCOSE (AUTOMATED)2023-05-05 16:40:18 Test Item Value Reference Range Interpretation Comments POCT GLU (test code = 7812877181) 259 mg/dL 70-110 H Lab Interpretation (test code = Abnormal 01419-2) [facility] GLUCOSE (AUTOMATED)2023-05-05 16:40:18 Test Item Value Reference Range Interpretation Comments POCT GLU (test code = 1157594273) 259 mg/dL 70-110 H Lab Interpretation (test code = Abnormal 29126-8) [facility] GLUCOSE (AUTOMATED)2023-05-05 12:49:57 Test Item Value Reference Range Interpretation Comments POCT GLU (test code = 3321073213) 239 mg/dL 70-110 H Lab Interpretation (test code = Abnormal 29644-5) [facility] GLUCOSE (AUTOMATED)2023-05-05 12:49:57 Test Item Value Reference Range Interpretation Comments POCT GLU (test code = 5127509511) 239 mg/dL 70-110 H Lab Interpretation (test code = Abnormal 04574-1) [facility] GLUCOSE (AUTOMATED)2023-05-05 01:28:32 Test Item Value Reference Range Interpretation Comments POCT GLU (test code = 2933062627) 274 mg/dL 70-110 H Lab Interpretation (test code = Abnormal 58683-7) [facility] GLUCOSE (AUTOMATED)2023-05-05 01:28:32 Test Item Value Reference Range Interpretation Comments POCT GLU (test code = 5778758642) 274 mg/dL 70-110 H Lab Interpretation (test code = Abnormal 23953-0) [facility] GLUCOSE (AUTOMATED)2023-05-04 21:57:13 Test Item Value Reference Range Interpretation Comments POCT GLU (test code = 9301928627) 276 mg/dL 70-110 H Lab Interpretation (test code = Abnormal 90836-6) [facility] GLUCOSE (AUTOMATED)2023-05-04 21:57:13 Test Item Value Reference Range Interpretation Comments POCT GLU (test code = 2948388644) 276 mg/dL 70-110 H Lab Interpretation (test code = Abnormal 92080-5) [facility] GLUCOSE (AUTOMATED)2023-05-04 17:25:14 Test Item Value Reference Range Interpretation Comments POCT GLU (test code = 2933082717) 249 mg/dL 70-110 H Lab Interpretation (test code = Abnormal 77290-7) [facility] GLUCOSE (AUTOMATED)2023-05-04 17:25:14 Test Item Value Reference Range Interpretation Comments POCT GLU (test code = 2484908070) 249 mg/dL 70-110 H Lab Interpretation (test code = Abnormal 89707-8) [facility] GLUCOSE (AUTOMATED)2023-05-04 13:33:19 Test Item Value Reference Range Interpretation Comments POCT GLU (test code = 4736770605) 245 mg/dL 70-110 H Lab Interpretation (test code = Abnormal 22875-0) [facility] GLUCOSE (AUTOMATED)2023-05-04 13:33:19 Test Item Value Reference Range Interpretation Comments POCT GLU (test code = 6578057522) 245 mg/dL 70-110 H Lab Interpretation (test code = Abnormal 17308-8) [facility] METABOLIC PANEL (NA, K, CL, CO2, GLUCOSE, BUN, CREATININE, CA)2023-05-04 09:03:54 Test Item Value Reference Range Interpretation Comments NA (test code = 135 mmol/L 135-145 4376314427) K (test code = 4.0 mmol/L 3.5-5.0 6369869451) CL (test code = 102 mmol/L 98-108 4887114051) CO2 TOTAL (test code = 28 mmol/L 23-31 0814133027) AGAP (test code = 5 2-16 2965460988) BUN (test code = 40 mg/dL 7-23 H 8316922888) GLUCOSE (test code = 251 mg/dL 70-110 H 8516249898) CREATININE (test code = 1.37 mg/dL 0.50-1.04 H 9798100278) CALCIUM (test code = 8.4 mg/dL 8.6-10.6 L 9946684296) eGFR (test code = 37.1 mL/min/1.73m2 1663971114) THOMAS (test code = THOAMS) Association of Glomerular Filtration Rate (GFR) and Staging of Kidney Disease* + --+ --+ ------+| GFR (mL/min/1.73 m2) ?| With Kidney Damage ?| ?Without Kidney Damage+ --------+ --------+ +| ?>90 ?| ?Stage one ?| ? Normal ?+ ---+ ---+ -------+| ?60-89 ?| ?Stage two ?| ? Decreased GFR ? + --+ --+ ------+| ?30-59 ?| ?Stage three ?| ? Stage three ? + --+ --+ ------+| ?15-29 ?| ?Stage four ? | ? Stage four ?+ ---+ ---+ -------+| ?<15 (or dialysis) ? ?| ?Stage five ? | ? Stage five ?+ ---+ ---+ -------+ *Each stage assumes the associated GFR level has been in effect for at least three months. ?Stages 1 to 5, with or without kidney disease, indicate chronic kidney disease. Notes: Determination of stages one and two (with eGFR >59mL/min/1.73 m2) requires estimation of kidney damage for at least three months as defined by structural or functional abnormalities of the kidney, manifested by either:Pathological abnormalities or Markers of kidney damage (including abnormalities in the composition of the blood or urine or abnormalities in imaging tests). Lab Interpretation Abnormal (test code = 88025-2) [facility] METABOLIC PANEL (NA, K, CL, CO2, GLUCOSE, BUN, CREATININE, CA)2023-05-04 09:03:54 Test Item Value Reference Range Interpretation Comments NA (test code = 135 mmol/L 135-145 3747674302) K (test code = 4.0 mmol/L 3.5-5.0 1003961652) CL (test code = 102 mmol/L 98-108 4676162696) CO2 TOTAL (test code = 28 mmol/L 23-31 4254564598) AGAP (test code = 5 2-16 4654957350) BUN (test code = 40 mg/dL 7-23 H 5812046633) GLUCOSE (test code = 251 mg/dL 70-110 H 2155370147) CREATININE (test code = 1.37 mg/dL 0.50-1.04 H 2887373904) CALCIUM (test code = 8.4 mg/dL 8.6-10.6 L 8408485928) eGFR (test code = 37.1 mL/min/1.73m2 4284539465) THOMAS (test code = THOMAS) Association of Glomerular Filtration Rate (GFR) and Staging of Kidney Disease* + --+ --+ ------+| GFR (mL/min/1.73 m2) ?| With Kidney Damage ?| ?Without Kidney Damage+ --------+ --------+ +| ?>90 ?| ?Stage one ?| ? Normal ?+ ---+ ---+ -------+| ?60-89 ?| ?Stage two ?| ? Decreased GFR ? + --+ --+ ------+| ?30-59 ?| ?Stage three ?| ? Stage three ? + --+ --+ ------+| ?15-29 ?| ?Stage four ? | ? Stage four ?+ ---+ ---+ -------+| ?<15 (or dialysis) ? ?| ?Stage five ? | ? Stage five ?+ ---+ ---+ -------+ *Each stage assumes the associated GFR level has been in effect for at least three months. ?Stages 1 to 5, with or without kidney disease, indicate chronic kidney disease. Notes: Determination of stages one and two (with eGFR >59mL/min/1.73 m2) requires estimation of kidney damage for at least three months as defined by structural or functional abnormalities of the kidney, manifested by either:Pathological abnormalities or Markers of kidney damage (including abnormalities in the composition of the blood or urine or abnormalities in imaging tests). Lab Interpretation Abnormal (test code = 18180-5) [facility] GLUCOSE (AUTOMATED)2023-05-04 01:29:18 Test Item Value Reference Range Interpretation Comments POCT GLU (test code = 7795748352) 264 mg/dL 70-110 H Lab Interpretation (test code = Abnormal 21747-1) [facility] GLUCOSE (AUTOMATED)2023-05-04 01:29:18 Test Item Value Reference Range Interpretation Comments POCT GLU (test code = 1524825269) 264 mg/dL 70-110 H Lab Interpretation (test code = Abnormal 61278-5) [facility] GLUCOSE (AUTOMATED)2023-05-03 22:19:54 Test Item Value Reference Range Interpretation Comments POCT GLU (test code = 2703391516) 267 mg/dL 70-110 H Lab Interpretation (test code = Abnormal 94276-0) [facility] GLUCOSE (AUTOMATED)2023-05-03 22:19:54 Test Item Value Reference Range Interpretation Comments POCT GLU (test code = 5402632230) 267 mg/dL 70-110 H Lab Interpretation (test code = Abnormal 45593-6) [facility] GLUCOSE (AUTOMATED)2023-05-03 17:15:51 Test Item Value Reference Range Interpretation Comments POCT GLU (test code = 6734500522) 374 mg/dL 70-110 H Lab Interpretation (test code = Abnormal 67363-8) [facility] GLUCOSE (AUTOMATED)2023-05-03 17:15:51 Test Item Value Reference Range Interpretation Comments POCT GLU (test code = 0364963527) 374 mg/dL 70-110 H Lab Interpretation (test code = Abnormal 06827-1) [facility] 15:31:40 Test Item Value Reference Range Interpretation Comments MAGNESIUM (test code = 0793380931) 2.3 mg/dL 1.7-2.4 Lab Interpretation (test code = Normal 97538-2) [facility]23-[facility]-10 15:31:40 Test Item Value Reference Range Interpretation Comments MAGNESIUM (test code = 1169312594) 2.3 mg/dL 1.7-2.4 Lab Interpretation (test code = Normal 08285-5) [facility] [id number] 15:31:19 Test Item Value Reference Range Interpretation Comments CK (test code = 6711710934) 1274 U/L 33-194 H Lab Interpretation (test code = Abnormal 63923-9) [facility] [id number] 15:31:19 Test Item Value Reference Range Interpretation Comments CK (test code = 3024356597) 1274 U/L 33-194 H Lab Interpretation (test code = Abnormal 58310-9) [facility] [id number] 14:08:42 Test Item Value Reference Range Interpretation Comments URIC ACID (test code = 0955033838) 9.5 mg/dL 2.9-6.0 H Lab Interpretation (test code = Abnormal 12212-8) [facility] [id number] 14:08:42 Test Item Value Reference Range Interpretation Comments URIC ACID (test code = 8317822654) 9.5 mg/dL 2.9-6.0 H Lab Interpretation (test code = Abnormal 09345-4) [facility] GLUCOSE (AUTOMATED)2023-05-03 12:53:46 Test Item Value Reference Range Interpretation Comments POCT GLU (test code = 7766056700) 279 mg/dL 70-110 H Lab Interpretation (test code = Abnormal 24735-9) [facility] GLUCOSE (AUTOMATED)2023-05-03 12:53:46 Test Item Value Reference Range Interpretation Comments POCT GLU (test code = 8817696017) 279 mg/dL 70-110 H Lab Interpretation (test code = Abnormal 77539-6) [facility] METABOLIC PANEL (90292)2023-05-03 12:42:38 Test Item Value Reference Range Interpretation Comments NA (test code = 136 mmol/L 135-145 0572261921) K (test code = 5.7 mmol/L 3.5-5.0 H Slight 3405436838) hemolysis CL (test code = 104 mmol/L 98-108 6759048002) CO2 TOTAL (test code 23 mmol/L 23-31 = 2784945660) AGAP (test code = 9 2-16 1839938729) BUN (test code = 52 mg/dL 7-23 H Slight 8256024715) hemolysis GLUCOSE (test code = 248 mg/dL 70-110 H 9184185456) CREATININE (test code 1.55 mg/dL 0.50-1.04 H = 6128654027) TOTAL BILI (test code 0.7 mg/dL 0.1-1.1 = 3041987685) CALCIUM (test code = 9.4 mg/dL 8.6-10.6 6340525511) T PROTEIN (test code 7.7 g/dL 6.3-8.2 = 2273600217) ALBUMIN (test code = 4.4 g/dL 3.5-5.0 [id number]) ALK PHOS (test code = 89 U/L 34-122 Slight 1789294440) hemolysis ALTv (test code = 22 U/L 5-35 1742-6) AST(SGOT) (test code 73 U/L 13-40 H Slight = 3754159490) hemolysis eGFR (test code = 32.2 mL/min/1.73m2 8229543839) THOMAS (test code = THOMAS) Association of Glomerular Filtration Rate (GFR) and Staging of Kidney Disease* + -----+ --------+ +| GFR (mL/min/1.73 m2) ?| With Kidney Damage ?| ?Without Kidney Damage+ +------- +---- --+| ?>90 ?| ?Stage one ?| ? Normal ?+ ------+ ---------+--------- +| ?60-89 ?| ?Stage two ?| ? Decreased GFR ? + -----+ --------+ +| ?30-59 ?| ?Stage three ?| ? Stage three ? + -----+ --------+ +| ?15-29 ?| ?Stage four ? | ? Stage four ?+ ------+ ---------+--------- +| ?<15 (or dialysis) ? ?| ?Stage five ? | ? Stage five ?+ ------+ ---------+--------- + *Each stage assumes the associated GFR level has been in effect for at least three months. ?Stages 1 to 5, with or without kidney disease, indicate chronic kidney disease. Notes: Determination of stages one and two (with eGFR >59mL/min/1.73 m2) requires estimation of kidney damage for at least three months as defined by structural or functional abnormalities of the kidney, manifested by either:Pathological abnormalities or Markers of kidney damage (including abnormalities in the composition of the blood or urine or abnormalities in imaging tests). Lab Interpretation Abnormal (test code = 37656-3) [facility]. METABOLIC PANEL ([id number])2023-05-03 12:42:38 Test Item Value Reference Range Interpretation Comments NA (test code = 136 mmol/L 135-145 5282329407) K (test code = 5.7 mmol/L 3.5-5.0 H Slight 7823578091) hemolysis CL (test code = 104 mmol/L 98-108 1068474501) CO2 TOTAL (test code 23 mmol/L 23-31 = 5135069622) AGAP (test code = 9 2-16 1376875813) BUN (test code = 52 mg/dL 7-23 H Slight 1425430758) hemolysis GLUCOSE (test code = 248 mg/dL 70-110 H 6272906252) CREATININE (test code 1.55 mg/dL 0.50-1.04 H = 6557060054) TOTAL BILI (test code 0.7 mg/dL 0.1-1.1 = 7362955799) CALCIUM (test code = 9.4 mg/dL 8.6-10.6 8539037744) T PROTEIN (test code 7.7 g/dL 6.3-8.2 = 5557990796) ALBUMIN (test code = 4.4 g/dL 3.5-5.0 6715271303) ALK PHOS (test code = 89 U/L 34-122 Slight 8411369339) hemolysis ALTv (test code = 22 U/L 5-35 1742-6) AST(SGOT) (test code 73 U/L 13-40 H Slight = 0298557315) hemolysis eGFR (test code = 32.2 mL/min/1.73m2 2319795713) THOMAS (test code = THOMAS) Association of Glomerular Filtration Rate (GFR) and Staging of Kidney Disease* + -----+ --------+ +| GFR (mL/min/1.73 m2) ?| With Kidney Damage ?| ?Without Kidney Damage+ +------- +---- --+| ?>90 ?| ?Stage one ?| ? Normal ?+ ------+ ---------+--------- +| ?60-89 ?| ?Stage two ?| ? Decreased GFR ? + -----+ --------+ +| ?30-59 ?| ?Stage three ?| ? Stage three ? + -----+ --------+ +| ?15-29 ?| ?Stage four ? | ? Stage four ?+ ------+ ---------+--------- +| ?<15 (or dialysis) ? ?| ?Stage five ? | ? Stage five ?+ ------+ ---------+--------- + *Each stage assumes the associated GFR level has been in effect for at least three months. ?Stages 1 to 5, with or without kidney disease, indicate chronic kidney disease. Notes: Determination of stages one and two (with eGFR >59mL/min/1.73 m2) requires estimation of kidney damage for at least three months as defined by structural or functional abnormalities of the kidney, manifested by either:Pathological abnormalities or Markers of kidney damage (including abnormalities in the composition of the blood or urine or abnormalities in imaging tests). Lab Interpretation Abnormal (test code = 22808-3) [facility] GLUCOSE (AUTOMATED)2023-05-03 01:43:03 Test Item Value Reference Range Interpretation Comments POCT GLU (test code = 5423761193) 223 mg/dL 70-110 H Lab Interpretation (test code = Abnormal 75442-3) [facility] GLUCOSE (AUTOMATED)2023-05-03 01:43:03 Test Item Value Reference Range Interpretation Comments POCT GLU (test code = 3413450549) 223 mg/dL 70-110 H Lab Interpretation (test code = Abnormal 32009-6) [facility] METABOLIC PANEL ([id number])2023-05-02 21:52:54 Test Item Value Reference Range Interpretation Comments NA (test code = 135 mmol/L 135-145 7910574052) K (test code = 6.2 mmol/L 3.5-5.0 HH Slight 8435490775) hemolysis CL (test code = 107 mmol/L 98-108 3335642580) CO2 TOTAL (test code 20 mmol/L 23-31 L = 4737872447) AGAP (test code = 8 2-16 1484409536) BUN (test code = 57 mg/dL 7-23 H Slight 5470680070) hemolysis GLUCOSE (test code = 288 mg/dL 70-110 H 6879414336) CREATININE (test code 1.63 mg/dL 0.50-1.04 H = 3136837302) TOTAL BILI (test code 0.5 mg/dL 0.1-1.1 = 2502074937) CALCIUM (test code = 8.4 mg/dL 8.6-10.6 L 0479626656) T PROTEIN (test code 6.6 g/dL 6.3-8.2 = 9180201278) ALBUMIN (test code = 3.8 g/dL 3.5-5.0 8987771201) ALK PHOS (test code = 68 U/L 34-122 Slight 2496078250) hemolysis ALTv (test code = 24 U/L 5-35 1742-6) AST(SGOT) (test code 45 U/L 13-40 H Slight = 2196797541) hemolysis eGFR (test code = 30.4 mL/min/1.73m2 4331352219) THOMAS (test code = THOMAS) Association of Glomerular Filtration Rate (GFR) and Staging of Kidney Disease* + -----+ --------+ +| GFR (mL/min/1.73 m2) ?| With Kidney Damage ?| ?Without Kidney Damage+ +------- +---- --+| ?>90 ?| ?Stage one ?| ? Normal ?+ ------+ ---------+--------- +| ?60-89 ?| ?Stage two ?| ? Decreased GFR ? + -----+ --------+ +| ?30-59 ?| ?Stage three ?| ? Stage three ? + -----+ --------+ +| ?15-29 ?| ?Stage four ? | ? Stage four ?+ ------+ ---------+--------- +| ?<15 (or dialysis) ? ?| ?Stage five ? | ? Stage five ?+ ------+ ---------+--------- + *Each stage assumes the associated GFR level has been in effect for at least three months. ?Stages 1 to 5, with or without kidney disease, indicate chronic kidney disease. Notes: Determination of stages one and two (with eGFR >59mL/min/1.73 m2) requires estimation of kidney damage for at least three months as defined by structural or functional abnormalities of the kidney, manifested by either:Pathological abnormalities or Markers of kidney damage (including abnormalities in the composition of the blood or urine or abnormalities in imaging tests). Lab Interpretation Abnormal (test code = 75583-5) [facility] METABOLIC PANEL ([id number])2023-05-02 21:52:54 Test Item Value Reference Range Interpretation Comments NA (test code = 135 mmol/L 135-145 5794870996) K (test code = 6.2 mmol/L 3.5-5.0 HH Slight 2387878637) hemolysis CL (test code = 107 mmol/L 98-108 1296482986) CO2 TOTAL (test code 20 mmol/L 23-31 L = 4809667769) AGAP (test code = 8 2-16 1216281784) BUN (test code = 57 mg/dL 7-23 H Slight 0129026082) hemolysis GLUCOSE (test code = 288 mg/dL 70-110 H 6002514966) CREATININE (test code 1.63 mg/dL 0.50-1.04 H = 1254905408) TOTAL BILI (test code 0.5 mg/dL 0.1-1.1 = 0430215797) CALCIUM (test code = 8.4 mg/dL 8.6-10.6 L 6609010198) T PROTEIN (test code 6.6 g/dL 6.3-8.2 = 0887702585) ALBUMIN (test code = 3.8 g/dL 3.5-5.0 7479704774) ALK PHOS (test code = 68 U/L 34-122 Slight 8755575493) hemolysis ALTv (test code = 24 U/L 5-35 1742-6) AST(SGOT) (test code 45 U/L 13-40 H Slight = 6269241941) hemolysis eGFR (test code = 30.4 mL/min/1.73m2 0157742312) THOMAS (test code = THOMAS) Association of Glomerular Filtration Rate (GFR) and Staging of Kidney Disease* + -----+ --------+ +| GFR (mL/min/1.73 m2) ?| With Kidney Damage ?| ?Without Kidney Damage+ +------- +---- --+| ?>90 ?| ?Stage one ?| ? Normal ?+ ------+ ---------+--------- +| ?60-89 ?| ?Stage two ?| ? Decreased GFR ? + -----+ --------+ +| ?30-59 ?| ?Stage three ?| ? Stage three ? + -----+ --------+ +| ?15-29 ?| ?Stage four ? | ? Stage four ?+ ------+ ---------+--------- +| ?<15 (or dialysis) ? ?| ?Stage five ? | ? Stage five ?+ ------+ ---------+--------- + *Each stage assumes the associated GFR level has been in effect for at least three months. ?Stages 1 to 5, with or without kidney disease, indicate chronic kidney disease. Notes: Determination of stages one and two (with eGFR >59mL/min/1.73 m2) requires estimation of kidney damage for at least three months as defined by structural or functional abnormalities of the kidney, manifested by either:Pathological abnormalities or Markers of kidney damage (including abnormalities in the composition of the blood or urine or abnormalities in imaging tests). Lab Interpretation Abnormal (test code = 79375-4) [facility] ACUTE CARE [id number] 21:17:18 Test Item Value Reference Range Interpretation Comments PH (test code = 2) 7.34 7.35-7.45 L PCO2 (test code = 45 See_Comment [Automate d message] 3507208373) The system [employer] generated this result transmit jamari reference range : 35 - 45 mmHg. The reference range was not used to interpret this result as normal/abnormal . PO2 (test code = 110 See_Comment H [Automated message] 9905422654) The system [employer] generated this result transmit jamari reference range : 80 - 100 mmHg. The reference range was not used to interpret this result as normal/abnormal . BE (test code = -2.0 See_Comment [Automated message] 0525664128) The system [employer] generated this result transmit jamari reference range : -3.0 - 3.0 mEq/ L. The reference r nathan was not used to interpret this result as normal/abnormal . HCO3 (test code = 24 See_Comment [Automate d message] 7149044757) The system [employer] generated this result transmit jamari reference range : 22 - 26 mEq/L. The reference range was not used to interpret this result as normal/abnormal . %O2HB (test code = 98.0 % 95.0-98.0 3118219302) NA (test code = 136 mmol/L 135-145 6193631936) K+ (test code = 5.4 mmol/L 3.5-5.0 H 9286624918) AC CA IONZ (test code = 5.00 mg/dL 4.50-5.30 5159828286) GLUCOSE (test code = 281 mg/dL 70-110 H 8616317932) AC Hematocrit (test 31 See_Comment L [Automa jamari message] code = 3444199931) The syste m which generated this result transmit jamari reference range : 40 - 54 VOL %. The reference range was not used to interpret this result as normal/abnormal . THB (test code = 10.5 g/dL 12.0-16.0 L 6876823979) AC TC02 (test code = 25 mmol/L See_Comment [Autom ated message] 4087084299) The system [employer] generated this result transmit jamari reference range : 23-27 mmol/L. T he reference range was not used to interpret this result as normal/abnormal . Lab Interpretation Abnormal (test code = 89039-7) [facility] ACUTE CARE [id number] 21:17:18 Test Item Value Reference Range Interpretation Comments PH (test code = 2) 7.30 7.35-7.45 L PCO2 (test code = 47 See_Comment H [Automate d message] 8575942577) The system [employer] generated this result transmit jamari reference range : 35 - 45 mmHg. The reference range was not used to interpret this result as normal/abnormal . PO2 (test code = 157 See_Comment H [Automated message] 0704946460) The system [employer] generated this result transmit jamari reference range : 80 - 100 mmHg. The reference range was not used to interpret this result as normal/abnormal . BE (test code = -3.0 See_Comment [Automated message] 5319850250) The system [employer] generated this result transmit jamari reference range : -3.0 - 3.0 mEq/ L. The reference r nathan was not used to interpret this result as normal/abnormal . HCO3 (test code = 23 See_Comment [Automate d message] 8559350621) The system [employer] generated this result transmit jamari reference range : 22 - 26 mEq/L. The reference range was not used to interpret this result as normal/abnormal . %O2HB (test code = 99.0 % 95.0-98.0 H 1687356709) NA (test code = 136 mmol/L 135-145 0064638186) K+ (test code = 4.9 mmol/L 3.5-5.0 1204902184) AC CA IONZ (test code = 5.00 mg/dL 4.50-5.30 5796755958) GLUCOSE (test code = 256 mg/dL 70-110 H 0987014190) AC Hematocrit (test 32 See_Comment L [Automa jamari message] code = 9473486782) The syste m which generated this result transmit jamari reference range : 40 - 54 VOL %. The reference range was not used to interpret this result as normal/abnormal . THB (test code = 10.9 g/dL 12.0-16.0 L 1026277255) AC TC02 (test code = 25 mmol/L See_Comment [Autom ated message] 4682820902) The system u[employer] generated this result transmit jamari reference range : 23-27 mmol/L. T he reference range was not used to interpret this result as normal/abnormal . Lab Interpretation Abnormal (test code = 65596-0) [facility] ACUTE CARE [id number] 21:17:18 Test Item Value Reference Range Interpretation Comments PH (test code = 2) 7.34 7.35-7.45 L PCO2 (test code = 45 See_Comment [Automate d message] 4055586282) The system [employer] generated this result transmit jamari reference range : 35 - 45 mmHg. The reference range was not used to interpret this result as normal/abnormal . PO2 (test code = 110 See_Comment H [Automated message] 6755373396) The system [employer] generated this result transmit jamari reference range : 80 - 100 mmHg. The reference range was not used to interpret this result as normal/abnormal . BE (test code = -2.0 See_Comment [Automated message] 1460759984) The system [employer] generated this result transmit jamari reference range : -3.0 - 3.0 mEq/ L. The reference r nathan was not used to interpret this result as normal/abnormal . HCO3 (test code = 24 See_Comment [Automate d message] 5357230585) The system [employer] generated this result transmit jamari reference range : 22 - 26 mEq/L. The reference range was not used to interpret this result as normal/abnormal . %O2HB (test code = 98.0 % 95.0-98.0 4868672996) NA (test code = 136 mmol/L 135-145 9263666808) K+ (test code = 5.4 mmol/L 3.5-5.0 H 1854174167) AC CA IONZ (test code = 5.00 mg/dL 4.50-5.30 5445301537) GLUCOSE (test code = 281 mg/dL 70-110 H 3983568251) AC Hematocrit (test 31 See_Comment L [Automa jamari message] code = 4416767967) The syste m which generated this result transmit jamari reference range : 40 - 54 VOL %. The reference range was not used to interpret this result as normal/abnormal . THB (test code = 10.5 g/dL 12.0-16.0 L 4883249303) AC TC02 (test code = 25 mmol/L See_Comment [Autom ated message] 5210036783) The system u[employer]aber generated this result transmit jamari reference range : 23-27 mmol/L. T he reference range was not used to interpret this result as normal/abnormal . Lab Interpretation Abnormal (test code = 92637-7) [facility] ACUTE CARE [id number] 21:17:18 Test Item Value Reference Range Interpretation Comments PH (test code = 2) 7.30 7.35-7.45 L PCO2 (test code = 47 See_Comment H [Automate d message] 9129734785) The system u[employer] generated this result transmit jamari reference range : 35 - 45 mmHg. The reference range was not used to interpret this result as normal/abnormal . PO2 (test code = 157 See_Comment H [Automated message] 2545845712) The system u[employer] generated this result transmit jamari reference range : 80 - 100 mmHg. The reference range was not used to interpret this result as normal/abnormal . BE (test code = -3.0 See_Comment [Automated message] 0204167758) The system u[employer]aber generated this result transmit jamari reference range : -3.0 - 3.0 mEq/ L. The reference r nathan was not used to interpret this result as normal/abnormal . HCO3 (test code = 23 See_Comment [Automate d message] 4114512354) The system u[employer] generated this result transmit jamari reference range : 22 - 26 mEq/L. The reference range was not used to interpret this result as normal/abnormal . %O2HB (test code = 99.0 % 95.0-98.0 H 2266045094) NA (test code = 136 mmol/L 135-145 8384832439) K+ (test code = 4.9 mmol/L 3.5-5.0 5989882736) AC CA IONZ (test code = 5.00 mg/dL 4.50-5.30 9635619421) GLUCOSE (test code = 256 mg/dL 70-110 H 1917845666) AC Hematocrit (test 32 See_Comment L [Automa jamari message] code = 4878654618) The syste m which generated this result transmit jamari reference range : 40 - 54 VOL %. The reference range was not used to interpret this result as normal/abnormal . THB (test code = 10.9 g/dL 12.0-16.0 L 2144841496) AC TC02 (test code = 25 mmol/L See_Comment [Autom ated message] 6266868963) The system [employer] h generated this result transmit jamari reference range : 23-27 mmol/L. T he reference range was not used to interpret this result as normal/abnormal . Lab Interpretation Abnormal (test code = 36840-6) [facility] GLUCOSE (AUTOMATED)2023-05-02 21:05:33 Test Item Value Reference Range Interpretation Comments POCT GLU (test code = 4354734270) 309 mg/dL 70-110 H Lab Interpretation (test code = Abnormal 05043-7) [facility] GLUCOSE (AUTOMATED)2023-05-02 21:05:33 Test Item Value Reference Range Interpretation Comments POCT GLU (test code = 1116394435) 309 mg/dL 70-110 H Lab Interpretation (test code = Abnormal 41689-7) [facility] [id number] 12:27:00 Test Item Value Reference Range Interpretation Comments ABO & RH (test code = 20) AB Positive IAT (test code = 1185) Negative [facility] [id number] 12:27:00 Test Item Value Reference Range Interpretation Comments ABO & RH (test code = 20) AB Positive IAT (test code = 1185) Negative [facility] GLUCOSE (AUTOMATED)2023-05-02 12:20:40 Test Item Value Reference Range Interpretation Comments POCT GLU (test code = 7609886350) 283 mg/dL 70-110 H Lab Interpretation (test code = Abnormal 89353-1) [facility] GLUCOSE (AUTOMATED)2023-05-02 12:20:40 Test Item Value Reference Range Interpretation Comments POCT GLU (test code = 6922710122) 283 mg/dL 70-110 H Lab Interpretation (test code = Abnormal 94403-5) [facility] GLUCOSE (AUTOMATED)2023-04-15 16:44:51 Test Item Value Reference Range Interpretation Comments POCT GLU (test code = 8699698240) 265 mg/dL 70-110 H Lab Interpretation (test code = Abnormal 96433-6) [facility] GLUCOSE (AUTOMATED)2023-04-15 16:44:51 Test Item Value Reference Range Interpretation Comments POCT GLU (test code = 8028293832) 265 mg/dL 70-110 H Lab Interpretation (test code = Abnormal 79864-4) [facility] GLUCOSE (AUTOMATED)2023-04-15 16:44:51 Test Item Value Reference Range Interpretation Comments POCT GLU (test code = 0567945247) 265 mg/dL 70-110 H Lab Interpretation (test code = Abnormal 68919-4) [facility] GLUCOSE (AUTOMATED)2023-04-15 16:44:51 Test Item Value Reference Range Interpretation Comments POCT GLU (test code = 1830829380) 265 mg/dL 70-110 H Lab Interpretation (test code = Abnormal 80896-1) [facility] GLUCOSE (AUTOMATED)2023-04-15 16:44:51 Test Item Value Reference Range Interpretation Comments POCT GLU (test code = 6186656207) 265 mg/dL 70-110 H Lab Interpretation (test code = Abnormal 37909-4) [facility] [id number] 14:10:34 Test Item Value Reference Range Interpretation Comments TSH (test code = See_Comment H [Automated message] 5396308402) The system u[employer]aber generated this result transmitted ref erence range: 0.45 - 4 .70 mIU/L. The refe rence range was not u sed to interpret this result as normal/abnor mal. Lab Interpretation (test Abnormal code = 99450-5) [facility] [id number] 13:51:53 Test Item Value Reference Interpretation Comments Range TROPONIN I (test 0.002 ng/mL See_Comment [Automated code = 0372562697) message] The system which generated this result transmitted reference range : <=0.034. The reference range was not used to interpret this result as normal/abnormal . THOMAS (test code = Reference (Normal) THOMAS) Range (defined by the 99th percentile reference limit): <= 0.034 ng/mL Note: Cardiac troponin begins to rise 3-4 hours after the onset of ischemia. Repeat in 4-6 hours if the sample was drawn within 3-4 hours of the onset of the symptom and found normal. Diagnosis of myocardial injury is made with acute changes in cTn concentrations with at least one serial sample above the 99th percentile upper reference limit (URL), taken together with the patient's clinical presentation. Biotin has been reported to cause a negative bias, interpret results relative to patient's use of biotin. Lab Interpretation Normal (test code = 94701-5) [facility] METABOLIC PANEL ([id number])2022-09-21 13:39:53 Test Item Value Reference Range Interpretation Comments NA (test code = 139 mmol/L 135-145 4737919026) K (test code = 4.8 mmol/L 3.5-5.0 4305933965) CL (test code = 103 mmol/L 98-108 1311783313) CO2 TOTAL (test code = 27 mmol/L 23-31 6360384963) AGAP (test code = 2-16 0749350034) BUN (test code = 55 mg/dL 7-23 H 0453785343) GLUCOSE (test code = 246 mg/dL 70-110 H 2019513510) CREATININE (test code = 1.36 mg/dL 0.50-1.04 H 5950889998) TOTAL BILI (test code = 0.3 mg/dL 0.1-1.2 3939675543) CALCIUM (test code = 9.5 mg/dL 8.6-10.6 4399716503) T PROTEIN (test code = 7.0 g/dL 6.3-8.2 8651766801) ALBUMIN (test code = 4.2 g/dL 3.5-5.0 1889945958) ALK PHOS (test code = 234 U/L 34-122 H 6748589091) ALTv (test code = 50 U/L 5-35 H 1742-6) AST(SGOT) (test code = 37 U/L 13-40 6082472603) eGFR (test code = mL/min/1.73m2 0553597985) THOMAS (test code = THOMAS) Association of Glomerular Filtration Rate (GFR) and Staging of Kidney Disease* + --+ --+ ------+| GFR (mL/min/1.73 m2) ?| With Kidney Damage ?| ?Without Kidney Damage+ --------+ --------+ +| ?>90 ?| ?Stage one ?| ? Normal ?+ ---+ ---+ -------+| ?60-89 ?| ?Stage two ?| ? Decreased GFR ? + --+ --+ ------+| ?30-59 ?| ?Stage three ?| ? Stage three ? + --+ --+ ------+| ?15-29 ?| ?Stage four ? | ? Stage four ?+ ---+ ---+ -------+| ?<15 (or dialysis) ? ?| ?Stage five ? | ? Stage five ?+ ---+ ---+ -------+ *Each stage assumes the associated GFR level has been in effect for at least three months. ?Stages 1 to 5, with or without kidney disease, indicate chronic kidney disease. Notes: Determination of stages one and two (with eGFR >59mL/min/1.73 m2) requires estimation of kidney damage for at least three months as defined by structural or functional abnormalities of the kidney, manifested by either:Pathological abnormalities or Markers of kidney damage (including abnormalities in the composition of the blood or urine or abnormalities in imaging tests). Lab Interpretation Abnormal (test code = 85453-8) [facility] 13:39:53 Test Item Value Reference Range Interpretation Comments MAGNESIUM (test code = 9485696927) 1.9 mg/dL 1.7-2.4 Lab Interpretation (test code = Normal 79707-0) [facility] WITH [id number] 13:28:14 Test Item Value Reference Range Interpretation Comments WBC (test code = See_Comment H [Automated 6690-2) message] The sy stem which generated this result transmitted reference range : 4.30 - 11.10 10*3/?L. The reference range was not used to interpret this result as normal/abnormal . RBC (test code = See_Comment L [Automated 789-8) message] The sy stem which generated this result transmitted reference range : 3.93 - 5.25 10*6/?L. The reference range was not used to interpret this result as normal/abnormal . HGB (test code = 11.3 g/dL 11.6-15.0 L 718-7) HCT (test code = 33.2 % 35.7-45.2 L 4544-3) MCV (test code = 89.0 fL 80.6-95.5 787-2) MCH (test code = 30.3 pg 25.9-32.8 785-6) MCHC (test code = 34.0 g/dL 31.6-35.1 786-4) RDW-SD (test code = 42.9 fL 39.0-49.9 79150-8) RDW-CV (test code = 13.2 % 12.0-15.5 788-0) PLT (test code = See_Comment [Automated 777-3) message] The sy stem which generated this result transmitted reference range : 166 - 358 10*3/ ?L. The reference r nathan was not used to interpret this result as normal/abnormal . MPV (test code = 10.6 fL 9.5-12.9 63701-6) NRBC/100 WBC (test See_Comment [Automat ed code = 3474363846) message] The system which generated this result transmitted reference range : 0.0 - 10.0 /100 WBCs. The refer ence range was not u sed to interpret th is result as normal/abnormal . NRBC x10^3 (test code See_Comment [Auto mated = 1797743561) message] The s ystem which generated this result transmitted reference range : 10*3/?L. The reference range was not used to interpret this result as normal/abnormal . GRAN MAT (NEUT) % 68.0 % (test code = 770-8) IMM GRAN % (test code 1.80 % = 0841872080) LYMPH % (test code = 15.9 % 736-9) MONO % (test code = 8.5 % 5905-5) EOS % (test code = 5.2 % 713-8) BASO % (test code = 0.6 % 706-2) GRAN MAT x10^3(ANC) 7.97 10*3/uL 1.88-7.09 H (test code = 5875381894) IMM GRAN x10^3 (test 0.21 10*3/uL 0.00-0.06 H code = 7130645373) LYMPH x10^3 (test code 1.87 10*3/uL 1.32-3.29 = 731-0) MONO x10^3 (test code 1.00 10*3/uL 0.33-0.92 H = 742-7) EOS x10^3 (test code = 0.61 10*3/uL 0.03-0.39 H 711-2) BASO x10^3 (test code 0.07 10*3/uL 0.01-0.07 = 704-7) Lab Interpretation Abnormal (test code = 11360-7) [facility] [id number] 21:59:00 Test Item Value Reference Range Interpretation Comments GLUCOSE BEDSIDE TESTING (test code 250 MG/DL 60-99 H = GLUBED) GLUCOSE BEDSIDE [id number] 12:28:00 Test Item Value Reference Range Interpretation Comments GLUCOSE BEDSIDE TESTING (test code 202 MG/DL 60-99 H = GLUBED) BASIC METABOLIC [id number] 07:39:00 Test Item Value Reference Range Interpretation [...] 9.2 MG/DL 8.4-10.2 N CA) BASIC METABOLIC [id number] 07:38:00 Test Item Value Reference Range Interpretation [...] code = MG/DL 8.7-9.7 CA) BASIC METABOLIC [id number] 07:36:00 Test Item Value Reference Range Interpretation [...] code = CA) MG/DL 8.7-9.7 GLUCOSE BEDSIDE [id number] 06:49:00 Test Item Value Reference Range Interpretation Comments GLUCOSE BEDSIDE TESTING (test code 264 MG/DL 60-99 H = GLUBED) GLUCOSE BEDSIDE [id number] 06:27:00 Test Item Value Reference Range Interpretation Comments GLUCOSE BEDSIDE TESTING (test code 266 MG/DL 60-99 H = GLUBED) GLUCOSE BEDSIDE [id number] 17:19:00 Test Item Value Reference Range Interpretation Comments GLUCOSE BEDSIDE TESTING (test code 209 MG/DL 60-99 H = GLUBED) GLUCOSE BEDSIDE [id number] 15:13:00 Test Item Value Reference Range Interpretation Comments GLUCOSE BEDSIDE TESTING (test code 265 MG/DL 60-99 H = GLUBED) GLUCOSE BEDSIDE [id number] 06:51:00 Test Item Value Reference Range Interpretation Comments GLUCOSE BEDSIDE TESTING (test code 256 MG/DL 60-99 H = GLUBED) GLUCOSE BEDSIDE [id number] 21:01:00 Test Item Value Reference Range Interpretation Comments GLUCOSE BEDSIDE TESTING (test code 274 MG/DL 60-99 H = GLUBED) GLUCOSE BEDSIDE [id number] 21:01:00 Test Item Value Reference Range Interpretation Comments GLUCOSE BEDSIDE TESTING (test code 228 MG/DL 60-99 H = GLUBED) GLUCOSE BEDSIDE [id number] 21:01:00 Test Item Value Reference Range Interpretation Comments GLUCOSE BEDSIDE TESTING (test code 250 MG/DL 60-99 H = GLUBED) GLUCOSE BEDSIDE [id number] 11:28:00 Test Item Value Reference Range Interpretation Comments GLUCOSE BEDSIDE TESTING (test code 228 MG/DL 60-99 H = GLUBED) GLUCOSE BEDSIDE [id number] 08:24:00 Test Item Value Reference Range Interpretation Comments GLUCOSE BEDSIDE TESTING (test code 230 MG/DL 60-99 H = GLUBED) GLUCOSE BEDSIDE [id number] 05:54:00 Test Item Value Reference Range Interpretation Comments GLUCOSE BEDSIDE TESTING 257 MG/DL 60-99 H Noti fied Nurse~ (test code = GLUBED) GLUCOSE BEDSIDE [id number] 00:11:00 Test Item Value Reference Range Interpretation Comments GLUCOSE BEDSIDE TESTING (test code 257 MG/DL 60-99 H = GLUBED) GLUCOSE BEDSIDE [id number] 20:57:00 Test Item Value Reference Range Interpretation Comments GLUCOSE BEDSIDE TESTING 268 MG/DL 60-99 H Noti fied Nurse~ (test code = GLUBED) GLUCOSE BEDSIDE [id number] 17:16:00 Test Item Value Reference Range Interpretation Comments GLUCOSE BEDSIDE TESTING (test code 182 MG/DL 60-99 H = GLUBED) GLUCOSE BEDSIDE [id number] 14:33:00 Test Item Value Reference Range Interpretation Comments GLUCOSE BEDSIDE TESTING (test code 243 MG/DL 60-99 H = GLUBED) GLUCOSE BEDSIDE [id number] 12:53:00 Test Item Value Reference Range Interpretation Comments GLUCOSE BEDSIDE TESTING (test code 278 MG/DL 60-99 H = GLUBED) POC ARTERIAL BLOOD [id number] 10:39:00 Test Item Value Reference Range Interpretation Comments POC ARTERIAL BLOOD GAS PH 7.448 7.35-7.45 N (test code = POCPHA) POC ARTERIAL BLOOD GAS PCO2 35.2 mmHg 35.0-45.0 N (test code = ZARKCS6Z) POC ARTERIAL BLOOD GAS PO2 70 75.0-100.0 L (test code = CYERJ9E) POC HCO3 ARTERIAL (test code 24.4 MMOL/L 20.0-26.0 N = YVYHAE9K) POC BASE EXCESS (test code = 0.0 MMOL/L -3.0-3.0 N POCBEA) POC O2 SATURATION (test code 95 % 92.0-98.5 N = POCO2S) FIO2 (test code = FIO2A) 21 % 21-100 N ABG DELIVERY (test code = Room Air JOSE) ABG SITE (test code = SITEA) R Radial ALLENS TEST (test code = YES CHECK RN Ntfd//RBV~ ALLENS) GLUCOSE BEDSIDE [id number] 08:49:00 Test Item Value Reference Range Interpretation Comments GLUCOSE BEDSIDE TESTING (test code 237 MG/DL 60-99 H = GLUBED) BASIC METABOLIC [id number] 08:29:00 Test Item Value Reference Range Interpretation [...] 9.7 MG/DL 8.4-10.2 N CA) BASIC METABOLIC [id number] 08:26:00 Test Item Value Reference Range Interpretation [...] code = MG/DL 8.7-9.7 CA) BASIC METABOLIC [id number] 08:24:00 Test Item Value Reference Range Interpretation [...] code = CA) MG/DL 8.7-9.7 CBC W/AUTO [id number] 08:09:00 Test Item Value Reference Range Interpretation [...] 0.00 K/mm3 0.0-0.1 N NRBC#) GLUCOSE BEDSIDE [id number] 22:06:00 Test Item Value Reference Range Interpretation Comments GLUCOSE BEDSIDE TESTING (test code 172 MG/DL 60-99 H = GLUBED) GLUCOSE BEDSIDE [id number] 22:06:00 Test Item Value Reference Range Interpretation Comments GLUCOSE BEDSIDE TESTING (test code 313 MG/DL 60-99 HH = GLUBED) GLUCOSE BEDSIDE [id number] 12:54:00 Test Item Value Reference Range Interpretation Comments GLUCOSE BEDSIDE TESTING (test code 167 MG/DL 60-99 H = GLUBED) GLUCOSE BEDSIDE [id number] 12:54:00 Test Item Value Reference Range Interpretation Comments GLUCOSE BEDSIDE TESTING (test code 266 MG/DL 60-99 H = GLUBED) GLUCOSE BEDSIDE [id number] 12:04:00 Test Item Value Reference Range Interpretation Comments GLUCOSE BEDSIDE TESTING (test code 292 MG/DL 60-99 H = GLUBED) GLUCOSE BEDSIDE [id number] 12:04:00 Test Item Value Reference Range Interpretation Comments GLUCOSE BEDSIDE TESTING (test code 334 MG/DL 60-99 HH = GLUBED) GLUCOSE BEDSIDE [id number] 12:03:00 Test Item Value Reference Range Interpretation Comments GLUCOSE BEDSIDE TESTING (test code 275 MG/DL 60-99 H = GLUBED) GLUCOSE BEDSIDE [id number] 12:03:00 Test Item Value Reference Range Interpretation Comments GLUCOSE BEDSIDE TESTING (test code 308 MG/DL 60-99 HH = GLUBED) GLUCOSE BEDSIDE [id number] 12:02:00 Test Item Value Reference Range Interpretation Comments GLUCOSE BEDSIDE TESTING (test code 178 MG/DL 60-99 H = GLUBED) GLUCOSE BEDSIDE [id number] 12:02:00 Test Item Value Reference Range Interpretation Comments GLUCOSE BEDSIDE TESTING (test code 250 MG/DL 60-99 H = GLUBED) GLUCOSE BEDSIDE [id number] 12:02:00 Test Item Value Reference Range Interpretation Comments GLUCOSE BEDSIDE TESTING (test code 356 MG/DL 60-99 HH = GLUBED) GLUCOSE BEDSIDE [id number] 12:00:00 Test Item Value Reference Range Interpretation Comments GLUCOSE BEDSIDE TESTING (test code 242 MG/DL 60-99 H = GLUBED) GLUCOSE BEDSIDE [id number] 06:27:00 Test Item Value Reference Range Interpretation Comments GLUCOSE BEDSIDE TESTING (test code 201 MG/DL 60-99 H = GLUBED) GLUCOSE BEDSIDE [id number] 06:27:00 Test Item Value Reference Range Interpretation Comments GLUCOSE BEDSIDE TESTING (test code 210 MG/DL 60-99 H = GLUBED) GLUCOSE BEDSIDE [id number] 21:24:00 Test Item Value Reference Range Interpretation Comments GLUCOSE BEDSIDE TESTING (test code 161 MG/DL 60-99 H = GLUBED) GLUCOSE BEDSIDE [id number] 16:14:00 Test Item Value Reference Range Interpretation [...] 6 % 12-57 L FESAT) COMPREHENSIVE METABOLIC [id number] 07:25:00 Test Item Value Reference Range Interpretation [...] UNITS/L 38-126 N (test code = ALKP) [id number] 07:25:00 Test Item Value Reference Range Interpretation Comments PHOSPHOROUS (test code = PHOS) 4.0 MG/DL 2.5-4.5 N [id number] 07:25:00 Test Item Value Reference Range Interpretation Comments MAGNESIUM (test code = MAG) 2.0 MG/DL 1.6-2.3 FE W/TOTAL IRON BINDING CAP.2019-09-06 07:18:00 Test Item Value Reference Range Interpretation Comments SERUM IRON (test code = IRON) 24 MCG/DL 37-170 L TOTAL IRON BINDING CAPACITY (test MCG/DL 265-497 code = TIBC) IRON SATURATION (test code = FESAT) % 12-57 COMPREHENSIVE METABOLIC [id number] 07:13:00 Test Item Value Reference Range Interpretation [...] PHOSPHATASE (test code = UNITS/L 38-126 ALKP) [id number] 07:13:00 Test Item Value Reference Range Interpretation Comments PHOSPHOROUS (test code = PHOS) MG/DL 2.5-4.5 [id number] 07:13:00 Test Item Value Reference Range Interpretation Comments MAGNESIUM (test code = MAG) MG/DL 1.6-2.3 COMPREHENSIVE METABOLIC [id number] 07:12:00 Test Item Value Reference Range Interpretation [...] PHOSPHATASE (test code = UNITS/L 38-126 ALKP) [id number] 07:12:00 Test Item Value Reference Range Interpretation Comments PHOSPHOROUS (test code = PHOS) MG/DL 2.5-4.5 [id number] 07:12:00 Test Item Value Reference Range Interpretation Comments MAGNESIUM (test code = MAG) MG/DL 1.6-2.3 CBC W/AUTO [id number] 06:32:00 Test Item Value Reference Range Interpretation [...] 0.00 K/mm3 0.0-0.1 N NRBC#) GLUCOSE BEDSIDE [id number] 05:58:00 Test Item Value Reference Range Interpretation Comments GLUCOSE BEDSIDE TESTING (test code 167 MG/DL 60-99 H = GLUBED) GLUCOSE BEDSIDE [id number] 02:02:00 Test Item Value Reference Range Interpretation Comments GLUCOSE BEDSIDE TESTING (test code 122 MG/DL 60-99 H = GLUBED) GLUCOSE BEDSIDE [id number] 21:33:00 Test Item Value Reference Range Interpretation Comments GLUCOSE BEDSIDE TESTING (test code 264 MG/DL 60-99 H = GLUBED) COMPREHENSIVE METABOLIC [id number] 07:21:00 Test Item Value Reference Range Interpretation [...] 84 UNITS/L 38-126 (test code = ALKP) [id number] 07:21:00 Test Item Value Reference Range Interpretation Comments PHOSPHOROUS (test code = PHOS) 4.4 MG/DL 2.5-4.5 [id number] 07:21:00 Test Item Value Reference Range Interpretation Comments MAGNESIUM (test code = MAG) 1.7 MG/DL 1.6-2.3 N COMPREHENSIVE METABOLIC [id number] 07:20:00 Test Item Value Reference Range Interpretation [...] 84 UNITS/L 38-126 (test code = ALKP) [id number] 07:20:00 Test Item Value Reference Range Interpretation Comments PHOSPHOROUS (test code = PHOS) 4.4 MG/DL 2.5-4.5 [id number] 07:20:00 Test Item Value Reference Range Interpretation Comments MAGNESIUM (test code = MAG) MG/DL 1.6-2.3 COMPREHENSIVE METABOLIC [id number] 07:20:00 Test Item Value Reference Range Interpretation [...] 84 UNITS/L 38-126 (test code = ALKP) [id number] 07:20:00 Test Item Value Reference Range Interpretation Comments PHOSPHOROUS (test code = PHOS) 4.4 MG/DL 2.5-4.5 [id number] 07:20:00 Test Item Value Reference Range Interpretation Comments MAGNESIUM (test code = MAG) MG/DL 1.6-2.3 COMPREHENSIVE METABOLIC [id number] 07:19:00 Test Item Value Reference Range Interpretation [...] PHOSPHATASE UNITS/L 38-126 (test code = ALKP) [id number] 07:19:00 Test Item Value Reference Range Interpretation Comments PHOSPHOROUS (test code = PHOS) MG/DL 2.5-4.5 [id number] 07:19:00 Test Item Value Reference Range Interpretation Comments MAGNESIUM (test code = MAG) MG/DL 1.6-2.3 LACTIC [id number] 07:17:00 Test Item Value Reference Range Interpretation Comments LACTIC ACID (test code = LACT) 1.7 MMOL/L 0.7-2.1 N COMPREHENSIVE METABOLIC [id number] 07:17:00 Test Item Value Reference Range Interpretation [...] PHOSPHATASE (test code = UNITS/L 38-126 ALKP) [id number] 07:17:00 Test Item Value Reference Range Interpretation Comments PHOSPHOROUS (test code = PHOS) MG/DL 2.5-4.5 [id number] 07:17:00 Test Item Value Reference Range Interpretation Comments MAGNESIUM (test code = MAG) MG/DL 1.6-2.3 COMPREHENSIVE METABOLIC [id number] 07:16:00 Test Item Value Reference Range Interpretation [...] PHOSPHATASE (test code = UNITS/L 38-126 ALKP) [id number] 07:16:00 Test Item Value Reference Range Interpretation Comments PHOSPHOROUS (test code = PHOS) MG/DL 2.5-4.5 [id number] 07:16:00 Test Item Value Reference Range Interpretation Comments MAGNESIUM (test code = MAG) MG/DL 1.6-2.3 CBC W/AUTO [id number] 07:08:00 Test Item Value Reference Range Interpretation [...] 0.00 K/mm3 0.0-0.1 N NRBC#) GLUCOSE BEDSIDE [id number] 03:49:00 Test Item Value Reference Range Interpretation Comments GLUCOSE BEDSIDE TESTING (test code 148 MG/DL 60-99 H = GLUBED) [id number] 01:07:00 Test Item Value Reference Range Interpretation Comments ACT-ISTAT (test code = ACTI) 120 SEC 74-137 N [id number] 01:07:00 Test Item Value Reference Range Interpretation Comments ACT-ISTAT (test code = ACTI) 125 SEC 74-137 N BASIC METABOLIC [id number] 23:48:00 Test Item Value Reference Range Interpretation [...] 9.4 MG/DL 8.4-10.2 N CA) Comments to [employer] Superintendent: SPECIMEN IN LABIs this a LINE draw? NMAGNESIUM 2019-09-04 23:48:00 Test Item Value Reference Range Interpretation Comments MAGNESIUM (test code = MAG) 1.8 MG/DL 1.6-2.3 N Comments to [employer] Elev[employer] Superintendent: SPECIMEN IN LABIs this a LINE draw? NBASIC METABOLIC [id number] 23:47:00 Test Item Value Reference Range Interpretation [...] code = CA) MG/DL 8.7-9.7 Comments to [employer] Elevator Superintendent: SPECIMEN IN LABIs this a LINE draw? 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 NBASIC METABOLIC [id number] 23:47:00 Test Item Value Reference Range Interpretation [...] code = MG/DL 8.7-9.7 CA) Comments to [employer] Elevator Superintendent: SPECIMEN IN LABIs this a LINE draw? 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 NMAGNESIUM 2019-09-04 23:44:00 Test Item Value Reference Range Interpretation Comments MAGNESIUM (test code = MAG) MG/DL 1.6-2.3 Comments to [employer] Elevator Superintendent: SPECIMEN IN LABIs this a LINE draw? NGLUCOSE BEDSIDE [id number] 23:43:00 Test Item Value Reference Range Interpretation Comments GLUCOSE BEDSIDE TESTING (test code 155 MG/DL 60-99 H = GLUBED) [id number] 23:36:00 Test Item Value Reference Range Interpretation Comments TROPONIN-I (test 0.906 NG/ML 0.012-0.033 HH CALLED TO Sweta Conn& code = TROPI) READBACK ON AT 2336 BY [employer] GLUCOSE BEDSIDE [id number] 21:15:00 Test Item Value Reference Range Interpretation Comments GLUCOSE BEDSIDE TESTING (test code 191 MG/DL 60-99 H = GLUBED) GLUCOSE BEDSIDE [id number] 19:54:00 Test Item Value Reference Range Interpretation Comments GLUCOSE BEDSIDE TESTING (test code 221 MG/DL 60-99 H = GLUBED) BASIC METABOLIC [id number] 17:50:00 Test Item Value Reference Range Interpretation [...] GLU) READBACK ON 11/11 AT 1656 BY Fazal Manzano BLOOD UREA NITROGEN 29 MG/DL 7-17 H (test code = BUN) GLOMERULAR FILTRATION 36 Report ing units: RATE (test code = GFR) ml/mi n/1.73 m2 (Modified MDRD Formula)Referen ce Range: > or = 6 0 ml/min/1.73 m2 CREATININE (test code 1.40 MG/DL 0.52-1.04 H = CREAT) CALCIUM (test code = 9.3 MG/DL 8.4-10.2 N CA) [id number] 17:50:00 Test Item Value Reference Range Interpretation Comments TROPONIN-I (test 0.905 NG/ML 0.012-0.033 HH CALLED TO Josep Rossi& code = TROPI) READBACK ON AT 1750 BY Josep Manzano BASIC METABOLIC [id number] 16:56:00 Test Item Value Reference Range Interpretation [...] GLU) READBACK ON 11/11 AT 1656 BY Fazal Manzano BLOOD UREA NITROGEN 29 MG/DL 7-17 H (test code = BUN) GLOMERULAR FILTRATION 36 Report ing units: RATE (test code = GFR) ml/mi n/1.73 m2 (Modified MDRD Formula)Referen ce Range: > or = 6 0 ml/min/1.73 m2 CREATININE (test code 1.40 MG/DL 0.52-1.04 H = CREAT) CALCIUM (test code = 9.3 MG/DL 8.4-10.2 N CA) [id number] 16:56:00 Test Item Value Reference Range Interpretation Comments TROPONIN-I (test code = TROPI) NG/ML 0.0-0.045 LACTIC [id number] 16:48:00 Test Item Value Reference Range Interpretation Comments LACTIC ACID (test code = LACT) 2.3 MMOL/L 0.7-2.1 H BASIC METABOLIC [id number] 16:48:00 Test Item Value Reference Range Interpretation [...] CALCIUM (test code = MG/DL 8.7-9.7 CA) [id number] 16:48:00 Test Item Value Reference Range Interpretation Comments TROPONIN-I (test code = TROPI) NG/ML 0.0-0.045 BASIC METABOLIC [id number] 16:47:00 Test Item Value Reference Range Interpretation [...] CALCIUM (test code = CA) MG/DL 8.7-9.7 [id number] 16:47:00 Test Item Value Reference Range Interpretation Comments TROPONIN-I (test code = TROPI) NG/ML 0.0-0.045 URINALYSIS [id number] 14:53:00 Test Item Value Reference Range Interpretation [...] Chk code = UACULT) SOURCE OF URINE: STANTON CATHETERUA [id number] 14:53:00 Test Item Value Reference Range Interpretation Comments UA RBC (test code = 5-10 RBC/HPF 0-3 A RBCU) UA WBC (test code = 3-5 WBC/HPF 0-5 FEW WBC CLUMPS XWBCU) OBSERVED UA EPITHELIAL CELLS RARE EPI/HPF FEW (test code = EPIU) UA BACTERIA (test code FEW NONE = XBACU) UA MUCUS (test code = SLIGHT #/LPF NONE MUCU) SOURCE OF URINE: STANTON CATHETERURINALYSIS [id number] 14:01:00 Test Item Value Reference Range Interpretation [...] Culture Chk = UACULT) SOURCE OF URINE: ST[employer] CATHETERUA [id number] 14:01:00 Test Item Value Reference Range Interpretation Comments UA RBC (test code = RBCU) RBC/HPF 0-3 UA WBC (test code = XWBCU) WBC/HPF 0-5 UA EPITHELIAL CELLS (test code = EPI/HPF FEW EPIU) UA BACTERIA (test code = XBACU) NONE SOURCE OF URINE: STANTON CATHETERURINALYSIS [id number] 14:01:00 Test Item Value Reference Range Interpretation [...] Culture Chk = UACULT) SOURCE OF URINE: ST[employer] CATHETERUA [id number] 14:01:00 Test Item Value Reference Range Interpretation Comments UA RBC (test code = RBCU) RBC/HPF 0-3 UA WBC (test code = XWBCU) WBC/HPF 0-5 UA EPITHELIAL CELLS (test code = EPI/HPF FEW EPIU) UA BACTERIA (test code = XBACU) NONE SOURCE OF URINE: STANTON CATHETERCOMPREHENSIVE METABOLIC [id number] 12:29:00 Test Item Value Reference Range Interpretation [...] UNITS/L 38-126 N (test code = ALKP) [id number] 12:29:00 Test Item Value Reference Range Interpretation Comments PHOSPHOROUS (test code = PHOS) 4.9 MG/DL 2.5-4.5 H [id number] 12:29:00 Test Item Value Reference Range Interpretation Comments MAGNESIUM (test code = MAG) 1.9 MG/DL 1.6-2.3 N LIPOPROTEIN LDL [id number] 12:29:00 Test Item Value Reference Range Interpretation Comments LIPOPROTEIN LDL DIRECT 112 mg/dL 100-129 N ===== (test code = LDLDIR) ======= ====R eference Interv al: mg/dL mmol/L--------- ----- ----- ----- -----Optimal <1 00 <2.6Near/above optimal 100-129 2.6-3.3Borderli ne High 130-159 3.4-4.1High 160 -189 4.1-4.9Very Hig h >=190 >=4.9==== ===== This LDL result is a direct measurement.=== ===== = [id number] 12:29:00 Test Item Value Reference Range Interpretation Comments TROPONIN-I (test 0.179 NG/ML 0.012-0.033 HH CALLED TO Josep Rossi & code = TROPI) READBACK ON AT 1206 Esper[place] Riojas PROCALCITONIN (PCT)2019-09-04 12:29:00 Test Item Value Reference Range Interpretation Comments PROCALCITONIN (PCT) < 0.05 NG/ML PROCALCI TONIN (PCT) (test code = PROCAL) NORMAL RANGE (ADULT):<0.05 N G/ML. - a concentration < 0.5 ng/mL represent s a low risk ofsevere s epsis and/or septic s hock. - a concentration > 2 ng/mL represent s a high risk ofsev ere sepsis and/or s eptic shock. Neverthe less, concentrations < 0.5 ng/mL do not ex clude aninfection, on account of loca lized infections (withoutsystemi c signs) which ca n be associated with such lowconcentratio ns, or a systemic infe ction in its initials tages (< 6 hours). Furthermore, in creased procalcitoninca n occur without infecti on. PCT concentrations between 0.5and 2.0 ng/m L should be inter preted taking into acc ount thepatient's hi story. It is recommend ed to retest PCT with in 6-24 hours if any concentrations < 2 ng/mL are obtai gricelda. COMPREHENSIVE METABOLIC [id number] 12:14:00 Test Item Value Reference Range Interpretation [...] UNITS/L 38-126 N (test code = ALKP) [id number] 12:14:00 Test Item Value Reference Range Interpretation Comments PHOSPHOROUS (test code = PHOS) 4.9 MG/DL 2.5-4.5 H [id number] 12:14:00 Test Item Value Reference Range Interpretation Comments MAGNESIUM (test code = MAG) 1.9 MG/DL 1.6-2.3 N LIPOPROTEIN LDL [id number] 12:14:00 Test Item Value Reference Range Interpretation Comments LIPOPROTEIN LDL DIRECT (test code = mg/dL 100-129 LDLDIR) [id number] 12:14:00 Test Item Value Reference Range Interpretation Comments TROPONIN-I (test 0.179 NG/ML 0.012-0.033 HH CALLED TO Josep Rossi & code = TROPI) READBACK ON AT 1206 Es[place]jas PROCALCITONIN (PCT)2019-09-04 12:14:00 Test Item Value Reference Range Interpretation Comments PROCALCITONIN (PCT) < 0.05 NG/ML PROCALCI TONIN (PCT) (test code = PROCAL) NORMAL RANGE (ADULT):<0.05 N G/ML. - a concentration < 0.5 ng/mL represent s a low risk ofsevere s epsis and/or septic s hock. - a concentration > 2 ng/mL represent s a high risk ofsev ere sepsis and/or s eptic shock. Neverthe less, concentrations < 0.5 ng/mL do not ex [...] 2 ng/mL are obtai gricelda. COMPREHENSIVE METABOLIC [id number] 12:07:00 Test Item Value Reference Range Interpretation [...] UNITS/L 38-126 N (test code = ALKP) [id number] 12:07:00 Test Item Value Reference Range Interpretation Comments PHOSPHOROUS (test code = PHOS) 4.9 MG/DL 2.5-4.5 H [id number] 12:07:00 Test Item Value Reference Range Interpretation Comments MAGNESIUM (test code = MAG) 1.9 MG/DL 1.6-2.3 N LIPOPROTEIN LDL [id number] 12:07:00 Test Item Value Reference Range Interpretation Comments LIPOPROTEIN LDL DIRECT (test code = mg/dL 100-129 LDLDIR) [id number] 12:07:00 Test Item Value Reference Range Interpretation Comments TROPONIN-I (test 0.179 NG/ML 0.012-0.033 HH CALLED TO Josep Rossi & code = TROPI) READBACK ON AT 1206 [address] PROCALCITONIN (PCT)2019-09-04 12:07:00 Test Item Value Reference Range Interpretation Comments PROCALCITONIN (PCT) (test code = NG/ML PROCAL) GLYCOSYLATED HEMOGLOBIN [id number] 12:06:00 Test Item Value Reference Range Interpretation Comments GLYCOSYLATED 10.4 % 4.8-5.9 H Any condition t hat HEMOGLOBIN (HA1C) shortens e rythocyte (test code = survival or dec reasesmean GLYHGB) erythrocyte age (e.g., recovery from a cute blood loss,hemolytic anemia) will falsely lo wer HGBA1c resultsregardle ss of the method used. HG BA1c results from linnea [facility]ford HbSS, HbCC, and [...] 70-110 H (test code = MBG) PROTHROMBIN [id number] 12:03:00 Test Item Value Reference Range Interpretation Comments PROTHROMBIN TIME 10.8 SECONDS 9.6-11.6 N PATIENT (test code = PTP) INTERNATIONAL NORMAL 1.0 0.8-1.1 N The INR is to be RATIO (test code = used only for INR) monitoring oral anticoagulantth erap y. INDICATION I NR VALUE ---- ---- ---- -------1. Prophylaxis, de ep venous thrombos is, including high risk surgery. 2.0 - 3.0 2. Prophylaxis, deep venous thrombosis, hip surgery, treatm ent for deep venous thrombosis or pulmonary prevention of systemic emboli sm in patients wit h valvular heart disease, atrial fibrillation, tissue heart va lve, or acute myocar dial infarction. 2.0 - 3.0 3. Computer Graphic Designer al prosthesis hear t valves, recurre nt systemic emboli sm. 3.0 - 4.5 PTT [id number] 12:03:00 Test Item Value Reference Range Interpretation Comments PTT ACTIVATED (test code = APTT) 24.1 SECONDS 22.0-33.0 N [id number] 12:03:00 Test Item Value Reference Range Interpretation Comments FIBRINOGEN (test code = FIB) 359 MG/DL 185-512 N [id number] 12:03:00 Test Item Value Reference Range Interpretation [...] f standard radiological pr ocedures. COMPREHENSIVE METABOLIC [id number] 11:57:00 Test Item Value Reference Range Interpretation [...] 462 MG/DL 74-106 HH CALLED TO ADI SAMAYOA READBACK ON 11/11 AT 1157 [address] [...] UNITS/L 38-126 N (test code = ALKP) [id number] 11:57:00 Test Item Value Reference Range Interpretation Comments PHOSPHOROUS (test code = PHOS) 4.9 MG/DL 2.5-4.5 H [id number] 11:57:00 Test Item Value Reference Range Interpretation Comments MAGNESIUM (test code = MAG) 1.9 MG/DL 1.6-2.3 N [id number] 11:57:00 Test Item Value Reference Range Interpretation Comments TROPONIN-I (test code = TROPI) NG/ML 0.0-0.045 PROCALCITONIN (PCT)2019-09-04 11:57:00 Test Item Value Reference Range Interpretation Comments PROCALCITONIN (PCT) (test code = NG/ML PROCAL) LACTIC [id number] 11:55:00 Test Item Value Reference Range Interpretation Comments LACTIC ACID (test code = LACT) 2.4 MMOL/L 0.7-2.1 H COMPREHENSIVE METABOLIC [id number] 11:53:00 Test Item Value Reference Range Interpretation [...] PHOSPHATASE UNITS/L 38-126 (test code = ALKP) [id number] 11:53:00 Test Item Value Reference Range Interpretation Comments PHOSPHOROUS (test code = PHOS) MG/DL 2.5-4.5 [id number] 11:53:00 Test Item Value Reference Range Interpretation Comments MAGNESIUM (test code = MAG) MG/DL 1.6-2.3 [id number] 11:53:00 Test Item Value Reference Range Interpretation Comments TROPONIN-I (test code = TROPI) NG/ML 0.0-0.045 PROCALCITONIN (PCT)2019-09-04 11:53:00 Test Item Value Reference Range Interpretation Comments PROCALCITONIN (PCT) (test code = NG/ML PROCAL) COMPREHENSIVE METABOLIC [id number] 11:51:00 Test Item Value Reference Range Interpretation [...] PHOSPHATASE (test code = UNITS/L 38-126 ALKP) [id number] 11:51:00 Test Item Value Reference Range Interpretation Comments PHOSPHOROUS (test code = PHOS) MG/DL 2.5-4.5 [id number] 11:51:00 Test Item Value Reference Range Interpretation Comments MAGNESIUM (test code = MAG) MG/DL 1.6-2.3 [id number] 11:51:00 Test Item Value Reference Range Interpretation Comments TROPONIN-I (test code = TROPI) NG/ML 0.0-0.045 PROCALCITONIN (PCT)2019-09-04 11:51:00 Test Item Value Reference Range Interpretation Comments PROCALCITONIN (PCT) (test code = NG/ML PROCAL) COMPREHENSIVE METABOLIC [id number] 11:50:00 Test Item Value Reference Range Interpretation [...] PHOSPHATASE (test code = UNITS/L 38-126 ALKP) [id number] 11:50:00 Test Item Value Reference Range Interpretation Comments PHOSPHOROUS (test code = PHOS) MG/DL 2.5-4.5 [id number] 11:50:00 Test Item Value Reference Range Interpretation Comments MAGNESIUM (test code = MAG) MG/DL 1.6-2.3 [id number] 11:50:00 Test Item Value Reference Range Interpretation Comments TROPONIN-I (test code = TROPI) NG/ML 0.0-0.045 PROCALCITONIN (PCT)2019-09-04 11:50:00 Test Item Value Reference Range Interpretation Comments PROCALCITONIN (PCT) (test code = NG/ML PROCAL) CBC W/AUTO [id number] 11:47:00 Test Item Value Reference Range Interpretation [...] = 0.00 K/mm3 0.0-0.1 N NRBC#) PLATELET [id number] 11:46:00 Test Item Value Reference Range Interpretation Comments PLATELET COUNT (test code = PLT) 426 K/MM3 129-368 H ISTAT BLOOD [id number] 11:04:00 Test Item Value Reference Range Interpretation [...] = GLUP) 474 MG/DL 60-99 ISTAT BLOOD [id number] 11:04:00 Test Item Value Reference Range Interpretation [...] GLUP) 451 MG/DL 60-99 - XR CHEST [id number] 10:44:00 Patient Name: ZARIA MURRELL Unit No: [id number] EXAMS: CPT CODE: [id number] XR CHEST 1V [id number] EXAM: - XR CHEST 1V Location code:C3 HISTORY: Follow-up intubated patient COMPARISON: 09/04/2019 FINDINGS: Frontal view [...] the patient. If this represents an inferior [place] catheter its tip is suboptimally positioned in the distal left pulmonary artery and should be retracted. at 1044 Reported and signedby: Sonia Mitchell MD CC: [facility] DENYS; Amos Conway MD Technologist: Winston Pressley (RT) (R) Transcrpt Date/Tm/Trnsp: 09/04/2019 (1041) [email or web address] Orig Print D/T: S: 09/04/2019 (1861) [facility] NAME: ZARIA MURRELL [address] PHYS: JAYSON [facility] [place] [address] : 1940 AGE: 79 SEX: F LOC: Z.I01 A PHONE #: [phone] EXAM DATE: 09/04/2019 STATUS: ADM IN FAX #: [phone] RADIOLOGY NO: PAGE 1 Signed ReportARTERIAL BLOOD [id number] 10:18:00 Test Item Value Reference Range Interpretation [...] = COHBGFFIO2) 100 % - XR CHEST [id number] 08:29:00 Patient Name: ZARIA MURRELL Unit No: [id number] EXAMS: CPT CODE: [id number] XR CHEST 1V 09914 EXAMINATION: - XR CHEST 1V. LOCATION: R16. HISTORY: S/P INTUBATION. COMPARISON: None. FINDINGS: Examination is limited due to portable supine technique and patient body habitus.. Cardiac silhouette/Mediastinal contour: Enlargement of cardiac silhouette. Atherosclerotic calcification of aortic arch. Lungs: Bilateral hazy diffuse airspace opacities, right greater than left. No large pleural effusion. OsseousStructures: Degenerative changes of thoracic spine. Additional Findings: ET tube is 4.1 cm above pedro. IMPRESSION: Bilateral hazy diffuse airspace opacity, right greater than left, may represent asymmetric pulmonary edema. Recommend continued follow-up. at 0829 Reported and signed by: Madonna Guzman CC: Amos Conway MD Technologist:Jose Francis (RT)(R) Transcrpt Date/Tm/Trnsp: 09/04/2019 (08) [email or web address] Orig Print D/T: S: 09/04/2019 (0833) [facility] NAME: ZARIA MURRELL [address] PHYS: [place] [address] : 1940 AGE: 79 SEX: F LOC: ZCeliaCCL PHONE #: [phone] EXAM DATE: 09/04/2019 STATUS: [facility] FAX #: [phone] RADIOLOGY NO: PAGE 1 Signed [facility] ARTERIAL BLOOD [id number] 07:48:00 Test Item Value Reference Range Interpretation Comments POC ARTERIAL BLOOD GAS PH 7.156 7.35-7.45 LL (test code = POCPHA) POC ARTERIAL BLOOD GAS PCO2 55.0 mmHg 35.0-45.0 HH (test code = SAFAYN8Q) POC ARTERIAL BLOOD GAS PO2 91 75.0-100.0 N (test code = VCNCW3Q) POC HCO3 ARTERIAL (test code 19.4 MMOL/L 20.0-26.0 L = RZFCNC2L) POC BASE EXCESS (test code = -9.0 [...] 4.60 MMOL/L 0.4-2.0 HH POCLAC) BASIC METABOLIC [id number] 06:58:00 Test Item Value Reference Range Interpretation [...] LIPOPROTEIN LDL (test 109 MG/DL 0-99 H OPTIM AL.........<100 code = LDL) mg/dLNEAR OPTIMAL/ABOVE OPTIMAL........ .100-12 9 mg/dL BORDERL INE HIGH.........13 0-159 mg/dL HIGH.........16 0-189 mg/dL VERY HIGH.........>/ = 190 mg/dL [id number] 06:58:00 Test Item Value Reference Range Interpretation Comments MAGNESIUM (test code = MAG) 1.7 MG/DL 1.6-2.3 N BASIC METABOLIC [id number] 06:48:00 Test Item Value Reference Range Interpretation [...] LDL (test MG/DL 0-99 code = LDL) [id number] 06:48:00 Test Item Value Reference Range Interpretation Comments MAGNESIUM (test code = MAG) 1.7 MG/DL 1.6-2.3 N BASIC METABOLIC [id number] 06:47:00 Test Item Value Reference Range Interpretation [...] LDL (test MG/DL 0-99 code = LDL) [id number] 06:47:00 Test Item Value Reference Range Interpretation Comments MAGNESIUM (test code = MAG) 1.7 MG/DL 1.6-2.3 N BASIC METABOLIC [id number] 06:46:00 Test Item Value Reference Range Interpretation [...] LDL (test code = LDL) MG/DL 0-99 [id number] 06:46:00 Test Item Value Reference Range Interpretation Comments MAGNESIUM (test code = MAG) MG/DL 1.6-2.3 BASIC METABOLIC [id number] 06:46:00 Test Item Value Reference Range Interpretation [...] LDL (test code = LDL) MG/DL 0-99 [id number] 06:46:00 Test Item Value Reference Range Interpretation Comments MAGNESIUM (test code = MAG) MG/DL 1.6-2.3 LIPID PROFILE (CORONARY RISK)2019-09-04 06:44:00 Test Item Value Reference Range Interpretation Comments TRIGLYCERIDES (test code = TRIG) MG/DL CHOLESTEROL (test code = CHOL) MG/DL <200 HDL CHOLESTEROL (test code = HDL) MG/DL 40-59 LIPOPROTEIN LDL (test code = LDL) MG/DL 0-99 [id number] 06:44:00 Test Item Value Reference Range Interpretation Comments MAGNESIUM (test code = MAG) MG/DL 1.6-2.3 BASIC METABOLIC [id number] 06:44:00 Test Item Value Reference Range Interpretation [...] CALCIUM (test code = CA) MG/DL 8.7-9.7 BASIC METABOLIC [id number] 06:43:00 Test Item Value Reference Range Interpretation [...] LDL (test code = LDL) MG/DL 0-99 [id number] 06:43:00 Test Item Value Reference Range Interpretation Comments MAGNESIUM (test code = MAG) MG/DL 1.6-2.3 PROTHROMBIN [id number] 06:42:00 Test Item Value Reference Range Interpretation Comments PROTHROMBIN TIME 10.7 SECONDS 9.6-11.6 N PATIENT (test code = PTP) INTERNATIONAL NORMAL 1.0 0.8-1.1 N The INR is to be RATIO (test code = used only for INR) monitoring oral anticoagulantth erap y. INDICATION INR VALUE ---- ---- ---- -------1. Prophylaxis, de ep venous thrombos is, including high risk surgery. 2.0 - 3.0 2. Prophylaxis, deep venous thrombosis, hip surgery, treatm ent for deep venous thrombosis or pulmonary prevention of systemic emboli sm in patients wit h valvular heart disease, atrial fibrillation, tissue heart va lve, or acute myocar dial infarction. 2.0 - 3.0 3. Computer Graphic Designer al prosthesis hear t valves, recurre nt systemic emboli sm. 3.0 - 4.5 PTT [id number] 06:42:00 Test Item Value Reference Range Interpretation Comments PTT ACTIVATED (test code = APTT) 25.3 SECONDS 22.0-33.0 N CBC W/AUTO [id number] 06:32:00 Test Item Value Reference Range Interpretation [...] code = 0.00 K/mm3 0.0-0.1 N NRBC#) Notes Date/Time Note Provider Source 2019-09-11 15:27:00-00:00 [facility] ([facility]) Nephrology Progress Note REPORT#:[id number] REPORT STATUS: Signed DATE:09/11/19 TIME: 1526 PATIENT: ZARIA MURRELL UNIT #: [id number] ROOM/BED: [address] : [birth year] AGE: 79 SEX: F ATTEND: Afshan Calderon MD ADM AUTHOR: Carmita Alva MD * ALL edits or amendments must be made on the [employer] / ?.?? document * Subjective Chief Complaint: f/u DINA on CKD Comments: no acute complaints Objective General VS/I O: Vital Signs: Date Time Temp Pulse Resp B/P B/P Pulse O2 O2 F low FiO2 Mean Ox Delivery Rate 09/11 1201 36.8 77 18 133/74 93.7 92 Room air 09/11 0835 94 Room air 21 09/11 0737 36.5 84 18 132/65 87.7 91 Room air 09/11 0458 36.7 84 17 167/71 102.8 93 Room air 09/11 0111 37.0 71 17 123/73 89.8 93 Room air 09/10 1953 95 Room air 21 09/10 1934 36.7 83 17 157/76 102.5 94 Room air 09/10 1618 36.7 84 20 147/74 98.5 95 Room air 24 hour I O ending at 0700: 09/11 0700 09/10 1900 Intake Total 720 360 Output Total Balance 720 360 Intake, Oral 720 360 Number Voids 5 2 Medications Active Meds + DC'd Last 24 Hrs Furosemide 20 MG DAILY PO Carvedilol 12.5 MG Q12HR PO Bisacodyl 5 MG ONCE ONE PO (DC) Insulin Glargine 15 UNITS DAILY SUBQ Insulin Glargine 7 UNITS BEDTIME SUBQ Insulin Human Lispro HIGH DOSE SLIDING SCALE AC HS SUBQ Pantoprazole 40 MG DAILY PO Lipase/Protease/Amylase 4 CAP C MEALS PO Latanoprost 1 DROP BEDTIME EACH EYE Furosemide 20 MG BID@0900,1700 PO (DC) Dextrose/Water 12.5 GM ASDIR PRN IV Dextrose/Water 25 GM ASDIR PRN IV Fluticasone Propionate 2 SPRAY DAILY NASAL (CKD) Aspirin 81 MG DAILY PO Losartan Potassium 25 MG DAILY PO Potassium Chloride 10 MEQ DAILY PO Thyroid 105 MG DAILY PO Atorvastatin Calcium 20 MG BEDTIME PO Enoxaparin Sodium 40 MG Q24H SUBQ Metoprolol Tartrate 25 MG Q12HR PO (DC) Acetaminophen 500 MG Q6H PRN PRN PO Albuterol/Ipratropium 3 ML RTQ4H INH Hydralazine HCl 10 MG Q4H PRN PRN IV Physical Exam General appearance: no respiratory distress Cardiovascular: no rub Respiratory: decreased breath sounds Abdomen: normal bowel sounds, soft Extremities: no swelling Results Findings/Data: Laboratory Tests 09/11 09/11 09/11 09/10 09/10 1200 0557 0500 1936 1617 Chemistry Sodium (137 - 145 MMOL/L) 134 L Potassium (3.5 - 5.1 MMOL/L) 3.9 Chloride (98 - 107 MMOL/L) 98 Carbon Dioxide (22 - 30 MMOL/L) 27 BUN (7 - 17 MG/DL) 28 H Creatinine (0.52 - 1.04 MG/DL) 1.10 H Glomerular Filtr Rate 48 Glucose (74 - 106 MG/DL) 277 H POC Glucose (60 - 99 MG/DL) 202 H 264 H 266 H 2 09 H Calcium (8.4 - 10.2 MG/DL) 9.2 Diagnosis, Assessment Plan Free Text A P: 1. 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 Acute on chronic systolic and diastolic heart failure -does not appear grossly volume overload and caitlyn athing well currently -restart on outpatient diuretics per primary -downtitrate Lasix due to worsening hyponatremia /alkalosis/Cr 3. Type 2 DM with DM nephropathy -DM management per primary team 4. HTN -renal function stable -ok to restart GURU/ARB as needed 5. CAD s/p LHC and stenting -per cardiology 6. Hypothyroidism -management per primary team 7. Anemia of CKD -Iron sat 6% -s/p IV Iron series Electronically Signed by Carmita Alva MD on 09/11 at 1528 RPT #:[id number] END OF REPORT 2019-09-11 14:39:00-00:00 [facility] ([facility]) Hospitalist Discharge Summary REPORT#:[id number] REPORT STATUS: Signed DATE:09/11/19 TIME: 1439 PATIENT: ZARIA MURRELL UNIT #: [id number] ROOM/BED: [address] : [birth year] AGE: 79 SEX: F ATTEND: Afshan Calderon MD ADM AUTHOR: Christy Taylor MD R1 * ALL edits or amendments must be made on the el ectronic/computer document * PCP PCP Discharge to: rehab General Information Date of admission: Observation Start Date: Date of admission: 09/04/19 Discharge date: 09/11/19 Admission diagnosis: cardiopulmonary arrest. Discharge diagnosis: cardiopulmonary arrest. Hospital course: 79 YO F w/ PMH of HF, Aortic Stenosis, DM, HTN, Hyperlipidemia, COPD Pancreatitis, hypothyroidsm and PSH of Appendectomy, Cholecystectomy, Left Knee Replacement . Patient reported to the hospital on 09/04 for scheduled cardiac cath procedure. Patient Had cardiopulmon robyn arrest with ROSC after 11 minutes. She was admitted to ICU where she was t reated for cardiopulmonary arrest, acute respiratory failure w/ hypoxia, un controlled diabetes, Hyperkalemia for 2 days. [facility] for cardiomyopathy with an ejection fraction of 20% Insulin was started to manage diabetes Patient was started on guru inhibitor for kidney protection and controll of hypertension. She also had leukocytosis (most likely reactive as she never had any fevers) and hyperkalemia which are resol jori and stable. Patient to be discharged with a life vest to a rehab facility. She will follow up with her PCP about her previous medical conditions as well as new onset diabetes. She will follow up with cardiology. Consultants: cardiology, electrophysiology Pt. condition on discharge: improved, stable Med Rec Med Rec Discharge meds: Stop taking the following medications: PRAVASTATIN (PRAVACHOL) 20 MG TAB 20 MILLIGRAM ORAL DAILY. LOSARTAN (COZAAR) 100 MG TAB 100 MILLIGRAM ORAL DAILY. CELECOXIB (CeleBREX) 200 MG CAP 200 MILLIGRAM ORAL DAILY. GLIMEPIRIDE (AMARYL) 1 MG TAB 1 MILLIGRAM ORAL DAILY. metFORMIN (GLUCOPHAGE) 500 MG TAB ORAL SPIRONOLACTONE (ALDACTONE) 50 MG TAB 50 MILLIGRAM ORAL DAILY. [thyroid] 90 MILLIGRAM DAILY. FUROSEMIDE (LASIX) 40 MG TAB 40 MILLIGRAM ORAL DAILY. Continue taking these medications: POTASSIUM CHLORIDE ER (KLOR-CON 10) 10 MEQ TAB.S R 10 MILLIEQUIVALENT ORAL DAILY. OMEPRAZOLE ER (PriLOSEC) 40 MG CAP.DR 40 MILLIGRAM ORAL DAILY. FLUTICASONE FUROATE/VILANTEROL 200/25 MC G/ACT (BREO ELLIPTA 200/25 MCG/ACT) 30 INH INHALER 1 PUFF INHALATION RT - DAILY. LATANOPROST (XALATAN 0.005% OPHTH SOLN) 2.5 ML O PHTH.SOLN DAILY. Instructions: 1 DROP INTO AFFECTED EYE ASPIRIN (ASPIRIN) 81 MG TAB.CHEW 81 MILLIGRAM ORAL DAILY. Start taking the following new medications: ALBUTEROL/IPRATROPIUM (DUONEB 3-0.5 MG/3ML) 3 ML NEB 3 MILLILITERS INHALATION EVERY 6 HOURS. Qty = 1 No Refills ENOXAPARIN (LOVENOX) 40 MG DISP.SYRIN 40 MILLIGRAM SUBCUTANEOUS EVERY 24 HOURS. Qty = 14 No Refills ATORVASTATIN (LIPITOR) 10 MG TAB 20 MILLIGRAM ORAL BEDTIME. Qty = 30 No Refills LOSARTAN (COZAAR) 25 MG TAB 25 MILLIGRAM ORAL DAILY. Qty = 30 No Refills METOPROLOL TARTRATE (LOPRESSOR) 25 MG TAB 25 MILLIGRAM ORAL EVERY 12 HOURS. Qty = 30 No Refills FUROSEMIDE (LASIX) 20 MG TAB 20 MILLIGRAM ORAL TWICE DAILY. Qty = 20 No Refills INSULIN GLARGINE (LANTUS SOLOSTAR) 100 UNITS/ML PEN.INJCTR 10 UNITS SUBCUTANEOUS DAILY. Qty = 1 No Refills INSULIN GLARGINE (LANTUS SOLOSTAR) 100 UNITS/ML PEN.INJCTR 5 UNITS SUBCUTANEOUS BEDTIME. Qty = 1 No Refills INSULIN LISPRO (HumaLOG U-100 CARTRIDGE) 100 UNI TS/ML CARTRIDGE 0 UNIT SUBCUTANEOUS EVERY 6 HOURS. Qty = 1 No Refills Instructions: HIGH DOSE SLIDING SCALE THYROID,PORK (ARMOUR THYROID) 60 MG TAB 105 MILLIGRAM ORAL DAILY. Qty = 1 No Refills Discharge Instructions Diet: cardiac Oral fluid restriction: Yes Mls allowed per day: 1000mL Activity: as tolerated Discharge management: less than 30 mins, face to face encounter Follow-up Appointments PCP: PCP: Amos Conway MD Follow up timeframe: In 2-3 weeks Attending Physician: Attending Physician: Afshan Calderon MD Consulting provider 1: Provider 1: Matteo Oropeza MD Specialty: CARDIOVASC DIS Follow up timeframe: In 3 months Special instructions: for life vest Objective General VS/I O: Vital Signs: Date Time Temp Pulse Resp B/P B/P Pulse O2 O2 F low FiO2 Mean Ox Delivery Rate 09/11 1201 98.2 77 18 133/74 93.7 92 Room air 09/11 0835 94 Room air 21 09/11 0737 97.7 84 18 132/65 87.7 91 Room air 09/11 0458 98.1 84 17 167/71 102.8 93 Room air 09/11 0111 98.6 71 17 123/73 89.8 93 Room air 09/10 1953 95 Room air 21 09/10 1934 98.1 83 17 157/76 102.5 94 Room air 09/10 1618 98.1 84 20 147/74 98.5 95 Room air 24 hour I O ending at 0700: 09/11 0700 09/10 1900 Intake Total 720 360 Output Total Balance 720 360 Intake, Oral 720 360 Number Voids 5 2 Physical Exam Head/Eyes: atraumatic, clear cornea, EOMI ENT: moist mucosal membranes, normal nose Neck: full range of motion, non-tender, no JVD Murmur: systolic 3/6 (systolic ) Respiratory: aerating well, clear to auscultatio n, symmetric expansion, no distress Abdomen: non-tender, soft Genitourinary: no stanton Extremities: moves all, no cyanosis, no edema Musculoskeletal: normal inspection, painless ran ge of motion ( ) Neuro/PROCESS EXPERT: alert, oriented X 3, normal speech Skin: dry, intact Psychiatry: normal affect, normal judgment/insig ht, normal mood, no hallucinations Quality Medications Current medication review: I attest that the foregoing medication list in t he medical record is true, accurate, and complete to the best of my knowled ge. Advanced Care Plan 65 or Older Discussed with: patient Discussion included: code status BMI Screening > 25 or < 18.5 Patient's BMI: Current BMI: 39.0 BMI status/follow-up: abnl BMI, pt to F/U w/PCP Tobacco Use/Counseling Tobacco use/counseling: non tobacco user, no cou nseling needed HTN Screening/Follow-up Last documented vitals: Last Documented: Result Date Time Pulse Ox 92 09/11 1201 B/P 133/74 09/11 1201 B/P Mean 93.7 09/11 1201 O2 Delivery Room air 09/11 120 Temp 98.2 09/11 1201 Pulse 77 09/11 1201 Resp 18 09/11 1201 FiO2 21 09/11 0835 O2 Flow Rate 2.058338 09/10 0813 B/P assess/follow-up: pre-existing hx of HTN Blood pressure ranges/guide: Screening for Hypertension and follow up measure #317 Blood pressure parameters Normal B/P SBP </= 119 DBP </= 79 Pre-hypertensive SBP 120-139 DBP 80-89 Hypertensive SBP >/= 140 DBP >/= 90 Attestations Attestation needed: supervising physician Electronically Signed by Christy Taylor MD R1 on 1 at 1506 RPT #:[id number] END OF REPORT 2019-09-11 14:39:00-00:00 [facility] ([facility]) Hospitalist Discharge Summary REPORT#:[id number] REPORT STATUS: Signed DATE:09/11/19 TIME: 143 PATIENT: ZARIA MURRELL UNIT #: [id number] ROOM/BED: [address] : [birth year] AGE: 79 SEX: F ATTEND: Afshan Calderon MD ADM AUTHOR: Christy Taylor MD R1 * ALL edits or amendments must be made on the el ectronic/computer document * Christy Taylor 09/11/19 1439: PCP PCP Discharge to: rehab General Information Date of admission: Observation Start Date: Date of admission: 09/04/19 Discharge date: 09/11/19 Admission diagnosis: cardiopulmonary arrest. Discharge diagnosis: cardiopulmonary arrest. Hospital course: 79 YO F w/ PMH of HF, Aortic Stenosis, DM, HTN, Hyperlipidemia, COPD Pancreatitis, hypothyroidsm and PSH of Appendectomy, Cholecystectomy, Left Knee Replacement . Patient reported to the hospital on 09/04 for scheduled cardiac cath procedure. Patient Had cardiopulmon robyn arrest with ROSC after 11 minutes. She was admitted to ICU where she was t reated for cardiopulmonary arrest, acute respiratory failure w/ hypoxia, un controlled diabetes, Hyperkalemia for 2 days. [facility] treated for cardiomyopathy with an ejection fraction of 20% Insulin was started to manage diabetes Patient was started on guru inhibitor for kidney protection and controll of hypertension. She also had leukocytosis (most likely reactive as she never had any fevers) and hyperkalemia which are resol jori and stable. Patient to be discharged with a life vest to a rehab facility. She will follow up with her PCP about her previous medical conditions as well as new onset diabetes. She will follow up with cardiology. Consultants: cardiology, electrophysiology Pt. condition on discharge: improved, stable Med Rec Med Rec Discharge meds: Stop taking the following medications: PRAVASTATIN (PRAVACHOL) 20 MG TAB 20 MILLIGRAM ORAL DAILY. LOSARTAN (COZAAR) 100 MG TAB 100 MILLIGRAM ORAL DAILY. CELECOXIB (CeleBREX) 200 MG CAP 200 MILLIGRAM ORAL DAILY. GLIMEPIRIDE (AMARYL) 1 MG TAB 1 MILLIGRAM ORAL DAILY. metFORMIN (GLUCOPHAGE) 500 MG TAB ORAL SPIRONOLACTONE (ALDACTONE) 50 MG TAB 50 MILLIGRAM ORAL DAILY. [thyroid] 90 MILLIGRAM DAILY. FUROSEMIDE (LASIX) 40 MG TAB 40 MILLIGRAM ORAL DAILY. Continue taking these medications: POTASSIUM CHLORIDE ER (KLOR-CON 10) 10 MEQ TAB.S R 10 MILLIEQUIVALENT ORAL DAILY. OMEPRAZOLE ER (PriLOSEC) 40 MG CAP.DR 40 MILLIGRAM ORAL DAILY. FLUTICASONE FUROATE/VILANTEROL 200/25 MC G/ACT (BREO ELLIPTA 200/25 MCG/ACT) 30 INH INHALER 1 PUFF INHALATION RT - DAILY. LATANOPROST (XALATAN 0.005% OPHTH SOLN) 2.5 ML O PHTH.SOLN DAILY. Instructions: 1 DROP INTO AFFECTED EYE ASPIRIN (ASPIRIN) 81 MG TAB.CHEW 81 MILLIGRAM ORAL DAILY. Start taking the following new medications: ALBUTEROL/IPRATROPIUM (DUONEB 3-0.5 MG/3ML) 3 ML NEB 3 MILLILITERS INHALATION EVERY 6 HOURS. Qty = 1 No Refills ENOXAPARIN (LOVENOX) 40 MG DISP.SYRIN 40 MILLIGRAM SUBCUTANEOUS EVERY 24 HOURS. Qty = 14 No Refills ATORVASTATIN (LIPITOR) 10 MG TAB 20 MILLIGRAM ORAL BEDTIME. Qty = 30 No Refills LOSARTAN (COZAAR) 25 MG TAB 25 MILLIGRAM ORAL DAILY. Qty = 30 No Refills METOPROLOL TARTRATE (LOPRESSOR) 25 MG TAB 25 MILLIGRAM ORAL EVERY 12 HOURS. Qty = 30 No Refills FUROSEMIDE (LASIX) 20 MG TAB 20 MILLIGRAM ORAL TWICE DAILY. Qty = 20 No Refills INSULIN GLARGINE (LANTUS SOLOSTAR) 100 UNITS/ML PEN.INJCTR 10 UNITS SUBCUTANEOUS DAILY. Qty = 1 No Refills INSULIN GLARGINE (LANTUS SOLOSTAR) 100 UNITS/ML PEN.INJCTR 5 UNITS SUBCUTANEOUS BEDTIME. Qty = 1 No Refills INSULIN LISPRO (HumaLOG U-100 CARTRIDGE) 100 UNI TS/ML CARTRIDGE 0 UNIT SUBCUTANEOUS EVERY 6 HOURS. Qty = 1 No Refills Instructions: HIGH DOSE SLIDING SCALE THYROID,PORK (ARMOUR THYROID) 60 MG TAB 105 MILLIGRAM ORAL DAILY. Qty = 1 No Refills Discharge Instructions Diet: cardiac Oral fluid restriction: Yes Mls allowed per day: 1000mL Activity: as tolerated Discharge management: less than 30 mins, face to face encounter Follow-up Appointments PCP: PCP: Amos Conway MD Follow up timeframe: In 2-3 weeks Attending Physician: Attending Physician: Afshan Calderon MD Consulting provider 1: Provider 1: Matteo Oropeza MD Specialty: CARDIOVASC DIS Follow up timeframe: In 3 months Special instructions: for life vest Objective General VS/I O: Vital Signs: Date Time Temp Pulse Resp B/P B/P Pulse O2 O2 F low FiO2 Mean Ox Delivery Rate 09/11 120 98.2 77 18 133/74 93.7 92 Room air 09/11 0835 94 Room air 21 09/11 0737 97.7 84 18 132/65 87.7 91 Room air 09/11 0458 98.1 84 17 167/71 102.8 93 Room air 09/11 0111 98.6 71 17 123/73 89.8 93 Room air 09/10 1953 95 Room air 21 09/10 1934 98.1 83 17 157/76 102.5 94 Room air 09/10 1618 98.1 84 20 147/74 98.5 95 Room air 24 hour I O ending at 0700: 09/11 0700 09/10 1900 Intake Total 720 360 Output Total Balance 720 360 Intake, Oral 720 360 Number Voids 5 2 Physical Exam Head/Eyes: atraumatic, clear cornea, EOMI ENT: moist mucosal membranes, normal nose Neck: full range of motion, non-tender, no JVD Murmur: systolic 3/6 (systolic ) Respiratory: aerating well, clear to auscultatio n, symmetric expansion, no distress Abdomen: non-tender, soft Genitourinary: no stanton Extremities: moves all, no cyanosis, no edema Musculoskeletal: normal inspection, painless ran ge of motion ( ) Neuro/PROCESS EXPERT: alert, oriented X 3, normal speech Skin: dry, intact Psychiatry: normal affect, normal judgment/insig ht, normal mood, no hallucinations Quality Medications Current medication review: I attest that the foregoing medication list in t he medical record is true, accurate, and complete to the best of my knowled ge. Advanced Care Plan 65 or Older Discussed with: patient Discussion included: code status BMI Screening > 25 or < 18.5 Patient's BMI: Current BMI: 39.0 BMI status/follow-up: abnl BMI, pt to F/U w/PCP Tobacco Use/Counseling Tobacco use/counseling: non tobacco user, no cou nseling needed HTN Screening/Follow-up Last documented vitals: Last Documented: Result Date Time Pulse Ox 92 09/11 120 B/P 133/74 09/11 120 B/P Mean 93.7 09/11 1201 O2 Delivery Room air 09/11 1201 Temp 98.2 09/11 1201 Pulse 77 09/11 120 Resp 18 09/11 1201 FiO2 21 09/11 0835 O2 Flow Rate 2.723833 09/10 0813 B/P assess/follow-up: pre-existing hx of HTN Blood pressure ranges/guide: Screening for Hypertension and follow up measure #317 Blood pressure parameters Normal B/P SBP </= 119 DBP </= 79 Pre-hypertensive SBP 120-139 DBP 80-89 Hypertensive SBP >/= 140 DBP >/= 90 Attestations Attestation needed: supervising physician Afshan Calderon 09/11/19 1615: Attestations Teaching Physician Attestation F/U visit w/ resident: I saw the patient with the resident and . . . agree with the resident's findings and p clare. Pt is doing well, awaiting Rehab, Dr Carson Parmar to see pt there Needs FU life Vest w Dr oropeza 90 days, non isch emic CM. Needs BS control w insulin, it has improved over the last couple of days Electronically Signed by Christy Taylor MD R1 on 1 at 1506 Electronically Signed by Afshan Calderon MD on at 1620 RPT #:[id number] END OF REPORT 2019-09-11 13:55:00-00:00 [id number] [place] [id number] PATIENT NAME: ZARIA MURRELL ADMIT DATE: 9 ACCOUNT NO: [id number] ROOM NO: [facility] AGE: 79 REPORT TYPE: ELECTROCARDIOGRAM SEX: F ADMITTING PHYSICIAN:Afshan Calderon MD ATTENDING PHYSICIAN:Afshan Calderon MD Order: [id number] Test Reason : CAD Test Date/Time Stamp: Sat Sep 11 2019 13:55:25 Blood Pressure : / mmHG Vent. Rate : 084 BPM Atrial Rate : 084 BPM P-R Int : 162 ms QRS Dur : 092 ms QT Int : 368 ms P-R-T Axes : 062 011 166 degree s QTc Int : 434 ms Normal sinus rhythm Possible Left atrial enlargement Left ventricular hypertrophy with repolarization abnormality Abnormal ECG When compared with ECG of 09-SEP-2019 03:06, Nonspecific T wave abnormality no longer evident in Anterior leads Confirmed by AMOS CONWAY ([id number]) on 09/11/2019 7:59:42 PM Referred By: Afshan Calderon Confirmed by:AMOS DAVID at 1959 PATIENT NAME: ZARIA MURRELL 6825 2019-09-11 06:47:00-00:00 [facility] Cardiology Progress Note REPORT#:[id number] REPORT STATUS: Signed DATE:09/11/19 TIME: 06 PATIENT: ZARIA MURRELL UNIT #: [id number] ROOM/BED: [address] : [address] AGE: 79 SEX: F ATTEND: Afshan Calderon MD ADM AUTHOR: Amos Conway MD * ALL edits or amendments must be made on the [employer]/computer document * Subjective Chief Complaint: Dyspnea, S/P Arrest, CHF/CMP/CAD Patient reports: No: complaints, chest pain, palpitations, shortn ess of breath, swelling. Nursing reports: No: complaints. Objective General VS/I O: 24 hour I O ending at 0700: 09/11 0700 09/10 1900 Intake Total 720 360 Output Total Balance 720 360 Intake, Oral 720 360 Number Voids 5 2 Vital Signs: Date Time Temp Pulse Resp B/P B/P Pulse O2 O2 F low FiO2 Mean Ox Delivery Rate 09/11 0835 94 Room air 21 09/11 0737 97.7 84 18 132/65 87.7 91 Room air 09/11 0458 98.1 84 17 167/71 102.8 93 Room air 09/11 0111 98.6 71 17 123/73 89.8 93 Room air 09/10 1953 95 Room air 21 09/10 1934 98.1 83 17 157/76 102.5 94 Room air 09/10 1618 98.1 84 20 147/74 98.5 95 Room air Patient Weight Weight (lb): 220 Weight (oz): 7.4 Weight (kg): 99.79 Medications: Active Meds + DC'd Last 24 Hrs Furosemide 20 MG DAILY PO Carvedilol 12.5 MG Q12HR PO Bisacodyl 5 MG ONCE ONE PO (DC) Insulin Glargine 15 UNITS DAILY SUBQ Insulin Glargine 7 UNITS BEDTIME SUBQ Insulin Human Lispro HIGH DOSE SLIDING SCALE AC HS SUBQ Pantoprazole 40 MG DAILY PO Lipase/Protease/Amylase 4 CAP C MEALS PO Latanoprost 1 DROP BEDTIME EACH EYE Furosemide 20 MG BID@0900,1700 PO (DC) Dextrose/Water 12.5 GM ASDIR PRN IV Dextrose/Water 25 GM ASDIR PRN IV Fluticasone Propionate 2 SPRAY DAILY NASAL (CKD) Aspirin 81 MG DAILY PO Losartan Potassium 25 MG DAILY PO Potassium Chloride 10 MEQ DAILY PO Thyroid 105 MG DAILY PO Atorvastatin Calcium 20 MG BEDTIME PO Enoxaparin Sodium 40 MG Q24H SUBQ Metoprolol Tartrate 25 MG Q12HR PO (DC) Acetaminophen 500 MG Q6H PRN PRN PO Albuterol/Ipratropium 3 ML RTQ4H INH Hydralazine HCl 10 MG Q4H PRN PRN IV Physical Exam General appearance: alert, awake, oriented, no a cute distress, pleasant, conversational, mental status normal, no respira tory distress Head/Eyes: atraumatic, normocephalic ENT: moist mucosal membranes Neck: no bruit/NL carotids, no JVD, no masses or swelling Cardiovascular: CV assessment: S3 present, regular rate and rhy thm, BP pulses = bilaterally Murmur assessment: II/ UNIQUE LLSB Respiratory: decreased breath sounds, clear to a uscultation, no distress Abdomen: soft, non-tender Upper extremity: UE assessment: no edema Lower extremity: LE assessment: no edema, 2+ peripheral pulses Musculoskeletal: full range of motion Neuro/PROCESS EXPERT: alert, oriented X 3, CN II-XII intact , no motor deficits Skin: dry, intact Psychiatry: normal affect, normal judgment/insig ht, normal mood, no hallucinations Results Findings/Data: Laboratory Tests 09/11 09/11 09/10 09/10 0557 0500 1936 1617 Chemistry Sodium (137 - 145 MMOL/L) 134 L Potassium (3.5 - 5.1 MMOL/L) 3.9 Chloride (98 - 107 MMOL/L) 98 Carbon Dioxide (22 - 30 MMOL/L) 27 BUN (7 - 17 MG/DL) 28 H Creatinine (0.52 - 1.04 MG/DL) 1.10 H Glomerular Filtr Rate 48 Glucose (74 - 106 MG/DL) 277 H POC Glucose (60 - 99 MG/DL) 264 H 266 H 209 H Calcium (8.4 - 10.2 MG/DL) 9.2 Results: labs reviewed, vital signs stable, EKG personally reviewed, rhythm personally rev'd, x-ray personally reviewed, cur rent med profile rev'd EKG Interpretation: normal sinus rhythm Telemetry Interpretation: SR Diagnosis, Assessment Plan Orders: Procedure Date/time Status EKG 09/11 454 Active Consultants: hospitalist Code status: full code Plan discussed with: patient , family, primary care physician, patient care team, nurse Free Text DxA P Notes Free Text DxA P Notes: IMP: Acute on chronic systolic heart failure LVEF 20-24% by echo 09/04/19 s/p cardiopulmonary arrest - respiratory arrest with PEA. No ventricular a rrhythmias recorded. Moderate CAD COPD PLAN: Continue oral lasix, ARB, Beta hermann. Lifevest external defibrillator for 90 days. Re assess LVEF at 90 days. If LVEF <= 35% at 90 days, AICD. Change to full code at patient's request Rehab placement. Electronically Signed by Amos Conway MD on 1 at 1145 RPT #:[id number] END OF REPORT 2019-09-10 18:05:00-00:00 [facility] ([facility]) Nephrology Progress Note REPORT#:[id number] REPORT STATUS: Signed DATE:09/10/19 TIME: 1804 PATIENT: ZARIA MURRELL UNIT #: [id number] ROOM/BED: [address] : 42 AGE: 79 SEX: F ATTEND: Afshan Calderon MD ADM AUTHOR: Carmita Alva MD * ALL edits or amendments must be made on the el [employer]/computer document * Subjective Chief Complaint: f/u DINA on CKD Comments: no acute complaints Objective General VS/I O: Vital Signs: Date Time Temp Pulse Resp B/P B/P Pulse O2 O2 F low FiO2 Mean Ox Delivery Rate 09/10 1618 36.7 84 20 147/74 98.5 95 Room air 09/10 1141 36.7 72 18 121/68 85.6 92 Room air 09/10 0813 97 Nasal 2.148596 28 cannula 09/10 0802 36.6 75 18 122/72 88.4 90 Room air 09/10 0620 37.0 82 18 123/57 79.3 97 Nasal cannula 09/09 2354 37.0 77 18 135/65 0.0 96 Nasal cannula 09/09 2044 37.0 94 1 150/70 96.4 94 Room air 09/09 1919 92 Room air 24 hour I O ending at 0700: 09/10 0700 09/09 1900 Intake Total 600 Output Total Balance 600 Intake, Oral 600 Number Voids 2 Medications Active Meds + DC'd Last 24 Hrs Insulin Glargine 15 UNITS DAILY SUBQ Insulin Glargine 7 UNITS BEDTIME SUBQ Insulin Glargine 13 UNITS DAILY SUBQ (DC) Insulin Human Lispro HIGH DOSE SLIDING SCALE AC HS SUBQ Pantoprazole 40 MG DAILY PO Lipase/Protease/Amylase 4 CAP C MEALS PO Insulin Glargine 5 UNITS BEDTIME SUBQ (DC) Latanoprost 1 DROP BEDTIME EACH EYE Furosemide 20 MG BID@0900,1700 PO Dextrose/Water 12.5 GM ASDIR PRN IV Dextrose/Water 25 GM ASDIR PRN IV Fluticasone Propionate 2 SPRAY DAILY NASAL (CKD) Aspirin 81 MG DAILY PO Losartan Potassium 25 MG DAILY PO Potassium Chloride 10 MEQ DAILY PO Thyroid 105 MG DAILY PO Atorvastatin Calcium 20 MG BEDTIME PO Enoxaparin Sodium 40 MG Q24H SUBQ Metoprolol Tartrate 25 MG Q12HR PO Acetaminophen 500 MG Q6H PRN PRN PO Albuterol/Ipratropium 3 ML RTQ4H INH Hydralazine HCl 10 MG Q4H PRN PRN IV Physical Exam General appearance: no respiratory distress Cardiovascular: no rub Respiratory: decreased breath sounds Abdomen: normal bowel sounds, soft Extremities: no swelling Results Findings/Data: Laboratory Tests 09/10 09/10 09/10 09/09 1617 1138 0620 2042 Chemistry POC Glucose (60 - 99 MG/DL) 209 H 265 H 256 H 2 74 H Diagnosis, Assessment Plan Free Text A P: 1. 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 Acute on chronic systolic and diastolic heart failure -does not appear grossly volume overload and caitlyn athing well currently -restart on outpatient diuretics per primary -watch renal function 3. Type 2 DM with DM nephropathy -DM management per primary team 4. HTN -renal function stable -ok to restart GURU/ARB as needed 5. CAD s/p LHC and stenting -per cardiology 6. Hypothyroidism -management per primary team 7. Anemia of CKD -Iron sat 6% -s/p IV Iron series Electronically Signed by Carmita Alva MD on 09/10 at 1806 RPT #:[id number] END OF REPORT 2019-09-10 09:06:00-00:00 [facility] ([facility]) Hospitalist Progress Note REPORT#:[id number] REPORT STATUS: Signed DATE:09/10/19 TIME: 905 PATIENT: ZARIA MURRELL UNIT #: [id number] ROOM/BED: [address] : 42 AGE: 79 SEX: F ATTEND: Afshan Calderon MD ADM AUTHOR: Christy Taylor MD R1 * ALL edits or amendments must be made on the [employer]/computer document * Subjective Chief Complaint: Dyspnea Free Text Subj Notes Free Subj Notes: Patient seen and examined, no acute events overn ight. Patient reports she is feeling well. Still has some pain with d eep inspiration but has no complaints. She is a good appetite, and is moving her bowels Review of Systems Constitutional: Denies: chills, fever. Respiratory: Denies: WHITE (dyspnea on exertion), non productiv e cough, productive cough ( sputum), SOB. Cardiovascular: Denies: chest pain, palpitations. GI: Denies: abdominal pain, constipation, diarrhea, nausea, vomiting. Objective General VS/I O: Vital Signs: Date Time Temp Pulse Resp B/P B/P Pulse O2 O2 F low FiO2 Mean Ox Delivery Rate 09/10 0813 97 Nasal 2.759579 28 cannula 09/10 0802 97.9 75 18 122/72 88.4 90 Room air 09/10 0620 98.6 82 18 123/57 79.3 97 Nasal cannula 09/09 2354 98.6 77 18 135/65 0.0 96 Nasal cannula 09/094 98.6 94 1 150/70 96.4 94 Room air 09/09 1919 92 Room air 09/09 1615 98.2 83 16 120/66 84.0 97 Room air 09/09 1113 98.1 84 16 125/60 81.7 95 Room air 24 hour I O ending at 0700: 09/10 0700 09/09 1900 Intake Total 600 Output Total Balance 600 Intake, Oral 600 Number Voids 2 Patient Weight Weight (lb): 220 Weight (oz): 7.4 Weight (kg): 99.79 Physical Exam General appearance: alert, awake, oriented, no a cute distress, pleasant, conversational, mental status normal, no respira tory distress Head/Eyes: atraumatic, clear cornea, EOMI ENT: moist mucosal membranes, normal nose Cardiovascular: murmur, normal capillary refill Murmur: systolic 3/6 (systolic ) Respiratory: aerating well, clear to auscultatio n, symmetric expansion, no distress Abdomen: non-tender, soft, no distention, no gua rding Extremities: moves all, normal capillary refill, normal range of motion, no cyanosis, no edema Musculoskeletal: normal inspection, painless ran ge of motion ( ) Neuro/PROCESS EXPERT: alert, oriented X 3, normal speech Skin: dry, intact Psychiatry: normal affect, normal judgment/insig ht, normal mood, no hallucinations Treatment Prophylaxis Treatment Prophylaxis Stanton status: none Diagnosis, Assessment Plan Free Text DxA P Notes Free Text DxA P Notes: 79 YO F w/ PMH of HF, Aortic Stenosis, DM, HTN, Hyperlipidemia, COPD Pancreatitis and PSH of Appendectomy, Ch olecystectomy, Left Knee Replacement C -Section is admitted to the ICU for Diuresis of Pulmonary Edema and Cardiopulmonary Arrest. The patient went into Ca rdiopulmonary arrest for 11 minutes and was succefully resusitated. Patient is intubated, awake and alert. ASSESSMENT 1. Cardiopulmonary Arrest w/ Sucessful Resusistation suspect to Cardiomyopathy 2 /2 Arrythmia vs. Acute on Chronic Systolic Heart Failure 2. Acute Hypoxic Respiratory Failure 3. DM 4. HTN 5. Hyperkalemia 6. Reactive Leukocytosis 7. Reactive Thrombocytosis 09/04 - Cardiopulmonary Arrest Continue Heart Cathetherization. EF of 20%. Consider ICD. Wait for Cardiology Inpt - Acute Hypoxic Respiratory Failure Intubation. Continue Diuretic Administration un til cleared for Extubation. Monitor Inspiratory - Flow Rate, RR and Tidal Vo lume - DM Mangage with Insulin Lispro SubQ 4 H Glargine 1 0 Units SubQ Before Bedtime - Hyperkalemia Continue Insulin. Continue Diuretics. Order BMP . Kareemor pH -HTN Hydralazine Q4 PRN 10mg - Thrombocytosis Leukocytosis Order CBC 09/05 - Cardiopulmonary Arrest Continue Heart Cathetherization. EF of 20%. Con librarian head External Defibrillator. Wait for Cardiology Inpt.Patient is extubated an d doing well. We will discuss with cardiology about the ex ternal defibrillator and resume GURU inhibitors when renal function is stabilized.. - Acute Hypoxic Respiratory Failure - Resolved Continue Diuretic Administration. - DM Mangage with Insulin Lispro SubQ 4 H Glargine 1 0 Units SubQ Before Bedtime - Hyperkalemia - Resolved Continue Insulin. Continue Diuretics. -HTN Hydralazine Q4 PRN 10mg - Leukocytosis - Resolved - Thromboyctosis Order CBC 09/06 - Cardiopulmonary Arrest Patient primary editorial assistant Dr. Conway follow ing along with Dr. Oropzea acute on chronic systolic heart failure LVEF 20 -40% 09/04/[address] D/c nitro patch. - Acute Hypoxic Respiratory Failure - Resolved Continue Diuretic Administration. - DM Mangage with Insulin Lispro SubQ 4 H Glargine 1 0 Units SubQ Before Bedtime - Hyperkalemia - Resolved Continue Insulin. Continue Diuretics. -HTN Hydralazine Q4 PRN 10mg agree with cardiology starting 25 mg Losartan - Leukocytosis - Resolved - Thromboyctosis Order CBC -CKD vs DINA d/t cardiac arrest will continue to trend BUN and creatinine. nephrology following -Hypothyroidsm continue home meds 09/07 - Cardiopulmonary Arrest followed by Dr. Conway following along with Dr Celia Oropeza patient will need food service counter clerk on discharge. - SOB and productive cough descrease lasix - DM uncontrolled Mangage with Insulin Lantus 10 units in morning 5 units at night. - Hyperkalemia - Resolved Continue Insulin. Continue Diuretics. -HTN Hydralazine Q4 PRN 10mg 25 mg Losartan started yesterday blood pressure today 146/80 - Thromboyctosis will follow up cbc tomorrow -CKD vs DINA d/t cardiac arrest will continue to trend BUN and creatinine. nephrology following -Hypothyroidsm continue home meds -Acute Hypoxic Respiratory Failure - Resolved - Leukocytosis - Resolved 09/07 - Cardiopulmonary Arrest followed by Dr. Conway following along with Dr Celia Oropeza patient will need food service counter clerk on discharge. - SOB and productive cough patient on room air doing well - DM uncontrolled sugars are still high will adjust insulin again today. - Hyperkalemia - Resolved -HTN 122/72 will continue medications - Thromboyctosis- resolved -CKD vs DINA d/t cardiac arrest nephrology following -Hypothyroidsm continue home meds -Acute Hypoxic Respiratory Failure - Resolved - Leukocytosis - Resolved Quality Medications Current medication review: I attest that the foregoing medication list in t he medical record is true, accurate, and complete to the best of my knowled ge. Advanced Care Plan 65 or Older Discussed with: patient Discussion included: code status BMI Screening > 25 or < 18.5 BMI status/follow-up: abnl BMI, pt to F/U w/PCP Tobacco Use/Counseling Tobacco use/counseling: non tobacco user, no cou nseling needed HTN Screening/Follow-up B/P assess/follow-up: pre-existing hx of HTN Electronically Signed by Christy Taylor MD R1 on 1 at 0926 RPT #:[id number] END OF REPORT 2019-09-10 09:06:00-00:00 [facility] ([facility]) Hospitalist Progress Note REPORT#:[id number] REPORT STATUS: Signed DATE:09/10/19 TIME: 905 PATIENT: ZARIA MURRELL UNIT #: [id number] [facility] AGE: 79 SEX: F ATTEND: Afshan Calderon MD ADM AUTHOR: Christy Taylor MD R1 * ALL edits or amendments must be made on the el [employer]/computer document * Christy Taylor 09/10/19 09: Subjective Chief Complaint: Dyspnea Free Text Subj Notes Free Subj Notes: Patient seen and examined, no acute events overn ight. Patient reports she is feeling well. Still has some pain with d eep inspiration but has no complaints. She is a good appetite, and is moving her bowels Review of Systems Constitutional: Denies: chills, fever. Respiratory: Denies: WHITE (dyspnea on exertion), non productiv e cough, productive cough ( sputum), SOB. Cardiovascular: Denies: chest pain, palpitations. GI: Denies: abdominal pain, constipation, diarrhea, nausea, vomiting. Objective General VS/I O: Vital Signs: Date Time Temp Pulse Resp B/P B/P Pulse O2 O2 Flow FiO2 Mean Ox Delivery Rate 09/10 0813 97 Nasal 2.850028 28 cannula 09/10 0802 97.9 75 18 122/72 88.4 90 Room air 09/10 0620 98.6 82 18 123/57 79.3 97 Nasal cannula 09/09 2354 98.6 77 18 135/65 0.0 96 Nasal cannula 09/09 2044 98.6 94 1 150/70 96.4 94 Room air 09/09 1919 92 Room air 09/09 1615 98.2 83 16 120/66 84.0 97 Room air 09/09 1113 98.1 84 16 125/60 81.7 95 Room air 24 hour I O ending at 0700: 09/10 0700 09/09 1900 Intake Total 600 Output Total Balance 600 Intake, Oral 600 Number Voids 2 Patient Weight Weight (lb): 220 Weight (oz): 7.4 Weight (kg): 99.79 Physical Exam General appearance: alert, awake, oriented, no a cute distress, pleasant, conversational, mental status normal, no respira tory distress Head/Eyes: atraumatic, clear cornea, EOMI ENT: moist mucosal membranes, normal nose Cardiovascular: murmur, normal capillary refill Murmur: systolic 3/6 (systolic ) Respiratory: aerating well, clear to auscultatio n, symmetric expansion, no distress Abdomen: non-tender, soft, no distention, no gua rding Extremities: moves all, normal capillary refill, normal range of motion, no cyanosis, no edema Musculoskeletal: normal inspection, painless ran ge of motion ( ) Neuro/PROCESS EXPERT: alert, oriented X 3, normal speech Skin: dry, intact Psychiatry: normal affect, normal judgment/insig ht, normal mood, no hallucinations Treatment Prophylaxis Treatment Prophylaxis Stanton status: none Diagnosis, Assessment Plan Free Text DxA P Notes Free Text DxA P Notes: 79 YO F w/ PMH of HF, Aortic Stenosis, DM, HTN, Hyperlipidemia, COPD Pancreatitis and PSH of Appendectomy, Ch olecystectomy, Left Knee Replacement C -Section is admitted to the ICU for Diuresis of Pulmonary Edema and Cardiopulmonary Arrest. The patient went into Ca rdiopulmonary arrest for 11 minutes and was succefully resusitated. Patient is intubated, awake and alert. ASSESSMENT 1. Cardiopulmonary Arrest w/ Sucessful Resusistation suspect to Cardiomyopathy 2 /2 Arrythmia vs. Acute on Chronic Systolic Heart Failure 2. Acute Hypoxic Respiratory Failure 3. DM 4. HTN 5. Hyperkalemia 6. Reactive Leukocytosis 7. Reactive Thrombocytosis 09/04 - Cardiopulmonary Arrest Continue Heart Cathetherization. EF of 20%. Consider ICD. Wait for Cardiology Inpt - Acute Hypoxic Respiratory Failure Intubation. Continue Diuretic Administration un til cleared for Extubation. Monitor Inspiratory - Flow Rate, RR and Tidal Vo lume - DM Mangage with Insulin Lispro SubQ 4 H Glargine 1 0 Units SubQ Before Bedtime - Hyperkalemia Continue Insulin. Continue Diuretics. Order OMAR Keenan pH -HTN Hydralazine Q4 PRN 10mg - Thrombocytosis Leukocytosis Order CBC 09/05 - Cardiopulmonary Arrest Continue Heart Cathetherization. EF of 20%. Con librarian head External Defibrillator. Wait for Cardiology Inpt.Patient is extubated an d doing well. We will discuss with cardiology about the ex ternal defibrillator and resume GURU inhibitors when renal function is stabilized.. - Acute Hypoxic Respiratory Failure - Resolved Continue Diuretic Administration. - DM Mangage with Insulin Lispro SubQ 4 H Glargine 1 0 Units SubQ Before Bedtime - Hyperkalemia - Resolved Continue Insulin. Continue Diuretics. -HTN Hydralazine Q4 PRN 10mg - Leukocytosis - Resolved - Thromboyctosis Order CBC 09/06 - Cardiopulmonary Arrest Patient primary editorial assistant Dr. Conway follow ing along with Dr. Oropeza acute on chronic systolic heart failure LVEF 20 -40% 09/04/[address] D/c nitro patch. - Acute Hypoxic Respiratory Failure - Resolved Continue Diuretic Administration. - DM Mangage with Insulin Lispro SubQ 4 H Glargine 1 0 Units SubQ Before Bedtime - Hyperkalemia - Resolved Continue Insulin. Continue Diuretics. -HTN Hydralazine Q4 PRN 10mg agree with cardiology starting 25 mg Losartan - Leukocytosis - Resolved - Thromboyctosis Order CBC -CKD vs DINA d/t cardiac arrest will continue to trend BUN and creatinine. nephrology following -Hypothyroidsm continue home meds 09/07 - Cardiopulmonary Arrest followed by Dr. Conway following along with Dr Celia Oropeza patient will need food service counter clerk on discharge. - SOB and productive cough descrease lasix - DM uncontrolled Mangage with Insulin Lantus 10 units in morning 5 units at night. - Hyperkalemia - Resolved Continue Insulin. Continue Diuretics. -HTN Hydralazine Q4 PRN 10mg 25 mg Losartan started yesterday blood pressure today 146/80 - Thromboyctosis will follow up cbc tomorrow -CKD vs DINA d/t cardiac arrest will continue to trend BUN and creatinine. nephrology following -Hypothyroidsm continue home meds -Acute Hypoxic Respiratory Failure - Resolved - Leukocytosis - Resolved 09/07 - Cardiopulmonary Arrest followed by Dr. Conway following along with Dr Celia Oropeza patient will need food service counter clerk on discharge. - SOB and productive cough patient on room air doing well - DM uncontrolled sugars are still high will adjust insulin again today. - Hyperkalemia - Resolved -HTN 122/72 will continue medications - Thromboyctosis- resolved -CKD vs DINA d/t cardiac arrest nephrology following -Hypothyroidsm continue home meds -Acute Hypoxic Respiratory Failure - Resolved - Leukocytosis - Resolved Quality Medications Current medication review: I attest that the foregoing medication list in t he medical record is true, accurate, and complete to the best of my knowled ge. Advanced Care Plan 65 or Older Discussed with: patient Discussion included: code status BMI Screening > 25 or < 18.5 BMI status/follow-up: abnl BMI, pt to F/U w/PCP Tobacco Use/Counseling Tobacco use/counseling: non tobacco user, no cou nseling needed HTN Screening/Follow-up B/P assess/follow-up: pre-existing hx of HTN Afshan Calderon 09/10/19 1636: Attestations Teaching Physician Attestation F/U visit w/ resident: I saw the patient with the resident and . . . agree with the resident's findings and plan. Pt is doing well, but the [facility] [place] feels she is too high le eladia w life vest, will try IPR again at [facility] Electronically Signed by Christy Taylor MD R1 on 1 at 0926 Electronically Signed by Afshan Calderon MD on at 1642 [facility] #:[id number] END OF REPORT 2019-09-10 06:09:00-00:00 [facility] ([facility]) Cardiology Progress Note REPORT#:[id number] REPORT STATUS: Signed DATE:09/10/19 TIME: 608 PATIENT: ZARIA MURRELL UNIT #: [id number] ROOM/BED: [address] : 42 AGE: 79 SEX: F ATTEND: Afshan Calderon MD ADM AUTHOR: Matteo Oropeza MD * ALL edits or amendments must be made on the [employer]/computer document * Subjective Chief Complaint: Dyspnea Patient reports: No: chest pain, palpitations, shortness of breat h. Objective General VS/I O: 24 hour I O ending at 0700: 09/10 0700 09/09 1900 Intake Total 600 Output Total Balance 600 Intake, Oral 600 Number Voids 2 Vital Signs: Date Time Temp Pulse Resp B/P B/P Pulse O2 O2 F low FiO2 Mean Ox Delivery Rate 09/09 2354 98.6 77 18 135/65 0.0 96 Nasal cannula 09/09 2044 98.6 94 1 150/70 96.4 94 Room air 09/09 1919 92 Room air 09/09 1615 98.2 83 16 120/66 84.0 97 Room air 09/09 1113 98.1 84 16 125/60 81.7 95 Room air 09/09 0912 Nasal 2.836760 cannula 09/09 0749 98.1 87 18 149/73 98.4 95 Room air 09/09 0721 98 Nasal 2.946451 28 cannula Patient Weight Weight (lb): 220 Weight (oz): 7.4 Weight (kg): 99.79 Medications: Active Meds + DC'd Last 24 Hrs Insulin Glargine 13 UNITS DAILY SUBQ Insulin Human Lispro HIGH DOSE SLIDING SCALE AC HS SUBQ Pantoprazole 40 MG DAILY PO Lipase/Protease/Amylase 4 CAP C MEALS PO Insulin Glargine 5 UNITS BEDTIME SUBQ Latanoprost 1 DROP BEDTIME EACH EYE Furosemide 20 MG BID@0900,1700 PO Insulin Glargine 10 UNITS DAILY SUBQ (DC) Dextrose/Water 12.5 GM ASDIR PRN IV Dextrose/Water 25 GM ASDIR PRN IV Fluticasone Propionate 2 SPRAY DAILY NASAL (CKD) Aspirin 81 MG DAILY PO Losartan Potassium 25 MG DAILY PO Potassium Chloride 10 MEQ DAILY PO Thyroid 105 MG DAILY PO Atorvastatin Calcium 20 MG BEDTIME PO Enoxaparin Sodium 40 MG Q24H SUBQ Metoprolol Tartrate 25 MG Q12HR PO Acetaminophen 500 MG Q6H PRN PRN PO Albuterol/Ipratropium 3 ML RTQ4H INH Hydralazine HCl 10 MG Q4H PRN PRN IV Physical Exam General appearance: alert, awake, oriented Head/Eyes: atraumatic, normocephalic ENT: moist mucosal membranes Neck: no JVD Cardiovascular: CV assessment: regular rate and rhythm Respiratory: clear to auscultation, no distress Abdomen: soft, non-tender Upper extremity: UE assessment: no edema Lower extremity: LE assessment: no edema Musculoskeletal: full range of motion Neuro/PROCESS EXPERT: alert, oriented X 3, CN II-XII intact Skin: dry, intact Psychiatry: normal affect, normal judgment/insig ht, normal mood Results Findings/Data: Laboratory Tests 09/09 09/09 09/09 09/09 2042 1613 1109 0814 Chemistry POC Glucose (60 - 99 MG/DL) 274 H 228 H 250 H 2 30 H Diagnosis, Assessment Plan Free Text DxA P Notes Free Text DxA P Notes: IMP: Acute on chronic systolic heart failure LVEF 20-24% by echo 09/04/19 s/p cardiopulmonary arrest - respiratory arrest with PEA. No ventricular a rrhythmias recorded. Moderate CAD PLAN: Continue oral lasix, ARB, Beta hermann. Lifevest external defibrillator for 90 days. Re assess LVEF at 90 days. If LVEF <= 35% at 90 days, AICD. Change to full code at patient's request. at 0738 [facility] #:[id number] END OF REPORT 2019-09-09 19:57:00-00:00 [facility] ([facility]) Nephrology Progress Note REPORT#:[id number] REPORT STATUS: Signed DATE:09/09/19 TIME: 1956 PATIENT: ZARIA MURRELL UNIT #: [id number] [facility] AGE: 79 SEX: F ATTEND: Afshan Calderon MD ADM AUTHOR: Carmita Alva MD * ALL edits or amendments must be made on the [employer]/computer document * Subjective Chief Complaint: f/u DINA on CKD Comments: no acute complaints Objective General VS/I O: Vital Signs: Date Time Temp Pulse Resp B/P B/P Pulse O2 O2 F low FiO2 Mean Ox Delivery Rate 09/09 1919 92 Room air 09/09 1615 36.8 83 16 120/66 84.0 97 Room air 09/09 1113 36.7 84 16 125/60 81.7 95 Room air 09/09 0912 Nasal 2.980913 cannula 09/09 0749 36.7 87 18 149/73 98.4 95 Room air 09/09 0721 98 Nasal 2.845267 28 cannula 09/09 0422 36.6 81 18 123/63 83.1 98 09/08 2334 36.8 80 18 135/69 90.9 95 09/08 2014 36.9 97 18 128/61 83.1 97 24 hour I O ending at 0700: 09/09 0700 09/08 1900 Intake Total 500 Output Total Balance 500 Intake, Oral 500 Number Voids 2 Medications Active Meds + DC'd Last 24 Hrs Insulin Glargine 13 UNITS DAILY SUBQ Insulin Human Lispro HIGH DOSE SLIDING SCALE AC HS SUBQ Pantoprazole 40 MG DAILY PO Lipase/Protease/Amylase 4 CAP C MEALS PO Insulin Glargine 5 UNITS BEDTIME SUBQ Latanoprost 1 DROP BEDTIME EACH EYE Furosemide 20 MG BID@0900,1700 PO Insulin Glargine 10 UNITS DAILY SUBQ (DC) Dextrose/Water 12.5 GM ASDIR PRN IV Dextrose/Water 25 GM ASDIR PRN IV Fluticasone Propionate 2 SPRAY DAILY NASAL (CKD) Aspirin 81 MG DAILY PO Losartan Potassium 25 MG DAILY PO Potassium Chloride 10 MEQ DAILY PO Thyroid 105 MG DAILY PO Atorvastatin Calcium 20 MG BEDTIME PO Enoxaparin Sodium 40 MG Q24H SUBQ Metoprolol Tartrate 25 MG Q12HR PO Acetaminophen 500 MG Q6H PRN PRN PO Albuterol/Ipratropium 3 ML RTQ4H INH Hydralazine HCl 10 MG Q4H PRN PRN IV Physical Exam General appearance: no respiratory distress Cardiovascular: no rub Respiratory: decreased breath sounds Abdomen: normal bowel sounds, soft Extremities: no swelling Results Findings/Data: Laboratory Tests 09/09 09/09 09/08 09/08 0814 0423 233 2014 Chemistry POC Glucose (60 - 99 MG/DL) 230 H 257 H 257 H 2 68 H Diagnosis, Assessment Plan Free Text A P: 1. 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 Acute on chronic systolic and diastolic heart failure -does not appear grossly volume overload and caitlyn athing well currently -restart on outpatient diuretics per primary -watch renal function 3. Type 2 DM with DM nephropathy -DM management per primary team 4. HTN -renal function stable -ok to restart GURU/ARB as needed 5. CAD s/p LHC and stenting -per cardiology 6. Hypothyroidism -management per primary team 7. Anemia of CKD -Iron sat 6% -s/p IV Iron series Electronically Signed by Carmita Alva MD on 09/09 at 1959 RPT #:[id number] END OF REPORT 2019-09-09 17:58:00-00:00 [facility] ([facility]) Cardiology Progress Note REPORT#:[id number] REPORT STATUS: Signed DATE:09/09/19 TIME: 1757 PATIENT: ZARIA MURRELL UNIT #: [id number] ROOM/BED: [address] : 42 AGE: 79 SEX: F ATTEND: Afshan Calderon MD ADM AUTHOR: Mtateo Oropeza MD * ALL edits or amendments must be made on the el [employer]/computer document * Subjective Chief Complaint: Dyspnea HPI: Patient requests DNR be discontinued and code st atus changed to full code. Patient reports: No: chest pain, palpitations, shortness of breat h. Objective General VS/I O: 24 hour I O ending at 0700: 09/09 0700 09/08 1900 Intake Total 500 Output Total Balance 500 Intake, Oral 500 Number Voids 2 Vital Signs: Date Time Temp Pulse Resp B/P B/P Pulse O2 O2 F low FiO2 Mean Ox Delivery Rate 09/09 1615 98.2 83 16 120/66 84.0 97 Room air 09/09 1113 98.1 84 16 125/60 81.7 95 Room air 09/09 0912 Nasal 2.926683 cannula 09/09 0749 98.1 87 18 149/73 98.4 95 Room air 09/09 0721 98 Nasal 2.716943 28 cannula 09/09 0422 97.9 81 18 123/63 83.1 98 09/08 2334 98.2 80 18 135/69 90.9 95 09/08 2014 98.4 97 18 128/61 83.1 97 09/08 1926 95 Nasal 2.627045 28 cannula Patient Weight Weight (lb): 220 Weight (oz): 7.4 Weight (kg): 99.79 Medications: Active Meds + DC'd Last 24 Hrs Insulin Glargine 13 UNITS DAILY SUBQ Insulin Human Lispro HIGH DOSE SLIDING SCALE AC HS SUBQ Pantoprazole 40 MG DAILY PO Lipase/Protease/Amylase 4 CAP C MEALS PO Insulin Glargine 5 UNITS BEDTIME SUBQ Latanoprost 1 DROP BEDTIME EACH EYE Furosemide 20 MG BID@0900,1700 PO Insulin Glargine 10 UNITS DAILY SUBQ (DC) Dextrose/Water 12.5 GM ASDIR PRN IV Dextrose/Water 25 GM ASDIR PRN IV Fluticasone Propionate 2 SPRAY DAILY NASAL (CKD) Aspirin 81 MG DAILY PO Losartan Potassium 25 MG DAILY PO Potassium Chloride 10 MEQ DAILY PO Thyroid 105 MG DAILY PO Atorvastatin Calcium 20 MG BEDTIME PO Insulin Human Lispro HIGH DOSE SLIDING SCALE Q4H SUBQ (DC) Enoxaparin Sodium 40 MG Q24H SUBQ Metoprolol Tartrate 25 MG Q12HR PO Acetaminophen 500 MG Q6H PRN PRN PO Albuterol/Ipratropium 3 ML RTQ4H INH Hydralazine HCl 10 MG Q4H PRN PRN IV Physical Exam General appearance: alert, awake, oriented Head/Eyes: atraumatic, normocephalic ENT: moist mucosal membranes Neck: no JVD Cardiovascular: CV assessment: regular rate and rhythm Respiratory: clear to auscultation, no distress Abdomen: soft, non-tender Upper extremity: UE assessment: no edema Lower extremity: LE assessment: no edema Musculoskeletal: full range of motion Neuro/PROCESS EXPERT: alert, oriented X 3, CN II-XII intact Skin: dry, intact Psychiatry: normal affect, normal judgment/insig ht, normal mood Results Findings/Data: Laboratory Tests 09/09 09/09 09/08 09/08 0814 0423 2333 2014 Chemistry POC Glucose (60 - 99 MG/DL) 230 H 257 H 257 H 2 68 H Diagnosis, Assessment Plan Free Text DxA P Notes Free Text DxA P Notes: IMP: Acute on chronic systolic heart failure LVEF 20-24% by echo 09/04/19 s/p cardiopulmonary arrest - respiratory arrest with PEA Moderate CAD PLAN: Continue oral lasix, ARB, Beta hermann. Lifevest external defibrillator for 90 days. Re assess LVEF at 90 days. If LVEF <= 35% at 90 days, AICD. Change to full code at patient's request. at 0605 RPT #:[id number] END OF REPORT 2019-09-09 10:11:00-00:00 [facility] ([facility]) Hospitalist Discharge Summary REPORT#:[id number] REPORT STATUS: Signed DATE:09/09/19 TIME: 1011 PATIENT: ZARIA MURRELL UNIT #: [id number] ROOM/BED: [address] : 42 AGE: 79 SEX: F ATTEND: Afshan Calderon MD ADM AUTHOR: Christy Taylor MD R1 * ALL edits or amendments must be made on the el [employer]/computer document * PCP PCP PCP: PCP: Amos Conway MD Discharge to: rehab General Information Date of admission: Observation Start Date: Date of admission: 09/04/19 Discharge date: 09/09/19 Admission diagnosis: cardiopulmonary arrest. Discharge diagnosis: cardiopulmonary arrest. Hospital course: 79 YO F w/ PMH of HF, Aortic Stenosis, DM, HTN, Hyperlipidemia, COPD is admitted to the ICU for Diur esis of Pulmonary Edema and Cardiopulmonary Arrest. The patient initally came in for Heart C athetherization for an LAD lesion when she experienced SOB. The patient was the n placed on Oxygen but still went into Cardiopulmonary arrest for 1 1 minutes and was succefully resusitated. Patient is intubated, awake and alert. Initial Physical Exa m was unable to be conducted. ASSESSMENT 1. Cardiopulmonary Arrest w/ Sucessful Resusistation suspect to Cardiomyopathy 2 /2 Arrythmia vs. Acute on Chronic Systolic Heart Failure 2. Acute Hypoxic Respiratory Failure 3. DM 4. HTN 5. Hyperkalemia 6. Reactive Leukocytosis 7. Reactive Thrombocytosis 09/04 - Cardiopulmonary Arrest Continue Heart Cathetherization. EF of 20%. Consider ICD. Wait for Cardiology Inpt - Acute Hypoxic Respiratory Failure Intubation. Continue Diuretic Administration un til cleared for Extubation. Monitor Inspiratory - Flow Rate, RR and Tidal Vo lume - DM Mangage with Insulin Lispro SubQ 4 H Glargine 1 0 Units SubQ Before Bedtime - Hyperkalemia Continue Insulin. Continue Diuretics. Order OMAR Keenan pH -HTN Hydralazine Q4 PRN 10mg - Thrombocytosis Leukocytosis Order CBC 09/05 - Cardiopulmonary Arrest Continue Heart Cathetherization. EF of 20%. Con librarian head External Defibrillator. Wait for Cardiology Inpt.Patient is extubated an d doing well. We will discuss with cardiology about the ex ternal defibrillator and resume GURU inhibitors when renal function is stabilized.. - Acute Hypoxic Respiratory Failure - Resolved Continue Diuretic Administration. - DM Mangage with Insulin Lispro SubQ 4 H Glargine 1 0 Units SubQ Before Bedtime - Hyperkalemia - Resolved Continue Insulin. Continue Diuretics. -HTN Hydralazine Q4 PRN 10mg - Leukocytosis - Resolved - Thromboyctosis Order CBC 09/06 - Cardiopulmonary Arrest Patient primary editorial assistant Dr. Conway follow ing along with Dr. Oropeza acute on chronic systolic heart failure LVEF 20 -40% 09/04/[address] D/c nitro patch. - Acute Hypoxic Respiratory Failure - Resolved Continue Diuretic Administration. - DM Mangage with Insulin Lispro SubQ 4 H Glargine 1 0 Units SubQ Before Bedtime - Hyperkalemia - Resolved Continue Insulin. Continue Diuretics. -HTN Hydralazine Q4 PRN 10mg agree with cardiology starting 25 mg Losartan - Leukocytosis - Resolved - Thromboyctosis Order CBC -CKD vs DINA d/t cardiac arrest will continue to trend BUN and creatinine. nephrology following -Hypothyroidsm continue home meds 09/07 - Cardiopulmonary Arrest followed by Dr. Conway following along with Dr Celia Oropeza patient will need food service counter clerk on discharge. - SOB and productive cough descrease lasix - DM uncontrolled Mangage with Insulin Lantus 10 units in morning 5 units at night. - Hyperkalemia - Resolved Continue Insulin. Continue Diuretics. -HTN Hydralazine Q4 PRN 10mg 25 mg Losartan started yesterday blood pressure today 146/80 - Thromboyctosis will follow up cbc tomorrow -CKD vs DINA d/t cardiac arrest will continue to trend BUN and creatinine. nephrology following -Hypothyroidsm continue home meds -Acute Hypoxic Respiratory Failure - Resolved - Leukocytosis - Resolved Patient to be discharged to rehab facility, will go Consultants: cardiology, electrophysiology Pt. condition on discharge: improved, stable Allergies: Allergies: No Known Drug Allergies (Coded, 09/04/19) No Known Contrast Allergies (Uncoded, 05/12/09) No Known Drug Allergies (Uncoded, 05/12/09) No Known Food Allergies (Uncoded, 05/12/09) No Known Other Allergies (Uncoded, 05/12/09) Med Rec Med Rec Discharge meds: Stop taking the following medications: PRAVASTATIN (PRAVACHOL) 20 MG TAB 20 MILLIGRAM ORAL DAILY. LOSARTAN (COZAAR) 100 MG TAB 100 MILLIGRAM ORAL DAILY. CELECOXIB (CeleBREX) 200 MG CAP 200 MILLIGRAM ORAL DAILY. GLIMEPIRIDE (AMARYL) 1 MG TAB 1 MILLIGRAM ORAL DAILY. metFORMIN (GLUCOPHAGE) 500 MG TAB ORAL SPIRONOLACTONE (ALDACTONE) 50 MG TAB 50 MILLIGRAM ORAL DAILY. [thyroid] 90 MILLIGRAM DAILY. FUROSEMIDE (LASIX) 40 MG TAB 40 MILLIGRAM ORAL DAILY. Continue taking these medications: POTASSIUM CHLORIDE ER (KLOR-CON 10) 10 MEQ TAB.S R 10 MILLIEQUIVALENT ORAL DAILY. OMEPRAZOLE ER (PriLOSEC) 40 MG CAP.DR 40 MILLIGRAM ORAL DAILY. FLUTICASONE FUROATE/VILANTEROL 200/25 MC G/ACT (BREO ELLIPTA 200/25 MCG/ACT) 30 INH INHALER 1 PUFF INHALATION RT - DAILY. LATANOPROST (XALATAN 0.005% OPHTH SOLN) 2.5 ML O PHTH.SOLN DAILY. Instructions: 1 DROP INTO AFFECTED EYE ASPIRIN (ASPIRIN) 81 MG TAB.CHEW 81 MILLIGRAM ORAL DAILY. Start taking the following new medications: ALBUTEROL/IPRATROPIUM (DUONEB 3-0.5 MG/3ML) 3 ML NEB 3 MILLILITERS INHALATION EVERY 6 HOURS. Qty = 1 No Refills ENOXAPARIN (LOVENOX) 40 MG DISP.SYRIN 40 MILLIGRAM SUBCUTANEOUS EVERY 24 HOURS. Qty = 14 No Refills ATORVASTATIN (LIPITOR) 10 MG TAB 20 MILLIGRAM ORAL BEDTIME. Qty = 30 No Refills LOSARTAN (COZAAR) 25 MG TAB 25 MILLIGRAM ORAL DAILY. Qty = 30 No Refills METOPROLOL TARTRATE (LOPRESSOR) 25 MG TAB 25 MILLIGRAM ORAL EVERY 12 HOURS. Qty = 30 No Refills FUROSEMIDE (LASIX) 20 MG TAB 20 MILLIGRAM ORAL TWICE DAILY. Qty = 20 No Refills INSULIN GLARGINE (LANTUS SOLOSTAR) 100 UNITS/ML PEN.INJCTR 10 UNITS SUBCUTANEOUS DAILY. Qty = 1 No Refills INSULIN GLARGINE (LANTUS SOLOSTAR) 100 UNITS/ML PEN.INJCTR 5 UNITS SUBCUTANEOUS BEDTIME. Qty = 1 No Refills INSULIN LISPRO (HumaLOG U-100 CARTRIDGE) 100 UNI TS/ML CARTRIDGE 0 UNIT SUBCUTANEOUS EVERY 6 HOURS. Qty = 1 No Refills Instructions: HIGH DOSE SLIDING SCALE THYROID,PORK (ARMOUR THYROID) 60 MG TAB 105 MILLIGRAM ORAL DAILY. Qty = 1 No Refills Discharge Instructions Diet: cardiac Oral fluid restriction: Yes Mls allowed per day: 1 Activity: as tolerated Discharge management: less than 30 mins, face to face encounter Follow-up Appointments PCP: PCP: Amos Conway MD Follow up timeframe: In 2-3 weeks Attending Physician: Attending Physician: Afshan Calderon MD Consulting provider 1: Provider 1: Matteo Oropeza MD Specialty: CARDIOVASC DIS Follow up timeframe: In 3 months Special instructions: for life vest Objective General VS/I O: Vital Signs: Date Time Temp Pulse Resp B/P B/P Pulse O2 O2 F low FiO2 Mean Ox Delivery Rate 09/09 1919 92 Room air 09/09 1615 98.2 83 16 120/66 84.0 97 Room air 09/09 1113 98.1 84 16 125/60 81.7 95 Room air 09/09 0912 Nasal 2.561774 cannula 09/09 0749 98.1 87 18 149/73 98.4 95 Room air 09/09 0721 98 Nasal 2.677180 28 cannula 09/09 0422 97.9 81 18 123/63 83.1 98 09/08 2334 98.2 80 18 135/69 90.9 95 09/08 2014 98.4 97 18 128/61 83.1 97 24 hour I O ending at 0700: 09/09 0700 09/08 1900 Intake Total 500 Output Total Balance 500 Intake, Oral 500 Number Voids 2 Physical Exam General appearance: alert, awake, oriented, no a cute distress, pleasant, conversational Head/Eyes: atraumatic, clear cornea, EOMI, normo cephalic ENT: moist mucosal membranes, normal nose Neck: full range of motion, non-tender, no JVD Cardiovascular: murmur Murmur: systolic 3/6 (systolic ) Respiratory: aerating well, clear to auscultatio n, symmetric expansion, no distress Abdomen: non-tender, soft, no distention Extremities: moves all, no cyanosis, no edema Musculoskeletal: normal inspection, no midline v ertebral tend, no paraspinal tenderness Neuro/PROCESS EXPERT: alert, oriented X 3, normal speech Skin: dry, intact, normal color Psychiatry: normal affect, normal judgment/insig ht, normal mood Quality Medications Current medication review: I attest that the foregoing medication list in t he medical record is true, accurate, and complete to the best of my knowled ge. Advanced Care Plan 65 or Older Discussed with: patient Discussion included: code status BMI Screening > 25 or < 18.5 BMI status/follow-up: abnl BMI, pt to F/U w/PCP Tobacco Use/Counseling Tobacco use/counseling: non tobacco user, no cou nseling needed HTN Screening/Follow-up Last documented vitals: Last Documented: Result Date Time Pulse Ox 92 09/09 1919 O2 Delivery Room air 10/17 1919 B/P 120/66 09/09 1615 B/P Mean 84.0 09/09 1615 Temp 98.2 09/09 1615 Pulse 83 09/09 1615 Resp 16 09/09 1615 O2 Flow Rate 2.330006 09/09 0912 FiO2 28 09/09 0721 B/P assess/follow-up: pre-existing hx of HTN Attestations Attestation needed: supervising physician Electronically Signed by Christy Taylor MD R1 on 1 at 1935 RPT #:[id number] END OF REPORT 2019-09-09 10:11:00-00:00 [facility] ([facility]) Hospitalist Discharge Summary REPORT#:[id number] REPORT STATUS: Signed DATE:09/09/19 TIME: 1011 PATIENT: ZARIA MURRELL UNIT #: [id number] ROOM/BED: [address] : 42 AGE: 79 SEX: F ATTEND: Afshan Calderon MD ADM AUTHOR: Christy Taylor MD R1 * ALL edits or amendments must be made on the el [employer]/computer document * Christy Taylor 09/09/19 1011: PCP PCP PCP: PCP: Amos Conway MD Discharge to: rehab General Information Date of admission: Observation Start Date: Date of admission: 09/04/19 Discharge date: 09/09/19 Admission diagnosis: cardiopulmonary arrest. Discharge diagnosis: cardiopulmonary arrest. Hospital course: 79 YO F w/ PMH of HF, Aortic Stenosis, DM, HTN, Hyperlipidemia, COPD is admitted to the ICU for Diur esis of Pulmonary Edema and Cardiopulmonary Arrest. The patient initally came in for Heart C athetherization for an LAD lesion when she experienced SOB. The patient was the n placed on Oxygen but still went into Cardiopulmonary arrest for 1 1 minutes and was succefully resusitated. Patient is intubated, awake and alert. Initial Physical Exa m was unable to be conducted. ASSESSMENT 1. Cardiopulmonary Arrest w/ Sucessful Resusistation suspect to Cardiomyopathy 2 /2 Arrythmia vs. Acute on Chronic Systolic Heart Failure 2. Acute Hypoxic Respiratory Failure 3. DM 4. HTN 5. Hyperkalemia 6. Reactive Leukocytosis 7. Reactive Thrombocytosis 09/04 - Cardiopulmonary Arrest Continue Heart Cathetherization. EF of 20%. Consider ICD. Wait for Cardiology Inpt - Acute Hypoxic Respiratory Failure Intubation. Continue Diuretic Administration un til cleared for Extubation. Monitor Inspiratory - Flow Rate, RR and Tidal Vo lume - DM Mangage with Insulin Lispro SubQ 4 H Glargine 1 0 Units SubQ Before Bedtime - Hyperkalemia Continue Insulin. Continue Diuretics. Order OMAR Keenan pH -HTN Hydralazine Q4 PRN 10mg - Thrombocytosis Leukocytosis Order CBC 09/05 - Cardiopulmonary Arrest Continue Heart Cathetherization. EF of 20%. Con librarian head External Defibrillator. Wait for Cardiology Inpt.Patient is extubated an d doing well. We will discuss with cardiology about the ex ternal defibrillator and resume GURU inhibitors when renal function is stabilized.. - Acute Hypoxic Respiratory Failure - Resolved Continue Diuretic Administration. - DM Mangage with Insulin Lispro SubQ 4 H Glargine 1 0 Units SubQ Before Bedtime - Hyperkalemia - Resolved Continue Insulin. Continue Diuretics. -HTN Hydralazine Q4 PRN 10mg - Leukocytosis - Resolved - Thromboyctosis Order CBC 09/06 - Cardiopulmonary Arrest Patient primary editorial assistant Dr. Conway follow ing along with Dr. Oropeza acute on chronic systolic heart failure LVEF 20 -40% 09/04/[address] D/c nitro patch. - Acute Hypoxic Respiratory Failure - Resolved Continue Diuretic Administration. - DM Mangage with Insulin Lispro SubQ 4 H Glargine 1 0 Units SubQ Before Bedtime - Hyperkalemia - Resolved Continue Insulin. Continue Diuretics. -HTN Hydralazine Q4 PRN 10mg agree with cardiology starting 25 mg Losartan - Leukocytosis - Resolved - Thromboyctosis Order CBC -CKD vs DINA d/t cardiac arrest will continue to trend BUN and creatinine. nephrology following -Hypothyroidsm continue home meds 09/07 - Cardiopulmonary Arrest followed by Dr. Conway following along with Dr Celia Oropeza patient will need food service counter clerk on discharge. - SOB and productive cough descrease lasix - DM uncontrolled Mangage with Insulin Lantus 10 units in morning 5 units at night. - Hyperkalemia - Resolved Continue Insulin. Continue Diuretics. -HTN Hydralazine Q4 PRN 10mg 25 mg Losartan started yesterday blood pressure today 146/80 - Thromboyctosis will follow up cbc tomorrow -CKD vs DINA d/t cardiac arrest will continue to trend BUN and creatinine. nephrology following -Hypothyroidsm continue home meds -Acute Hypoxic Respiratory Failure - Resolved - Leukocytosis - Resolved Patient to be discharged to rehab facility, will go Consultants: cardiology, electrophysiology Pt. condition on discharge: improved, stable Allergies: Allergies: No Known Drug Allergies (Coded, 09/04/19) No Known Contrast Allergies (Uncoded, 05/12/09) No Known Drug Allergies (Uncoded, 05/12/09) No Known Food Allergies (Uncoded, 05/12/09) No Known Other Allergies (Uncoded, 05/12/09) Med Rec Med Rec Discharge meds: Stop taking the following medications: PRAVASTATIN (PRAVACHOL) 20 MG TAB 20 MILLIGRAM ORAL DAILY. LOSARTAN (COZAAR) 100 MG TAB 100 MILLIGRAM ORAL DAILY. CELECOXIB (CeleBREX) 200 MG CAP 200 MILLIGRAM ORAL DAILY. GLIMEPIRIDE (AMARYL) 1 MG TAB 1 MILLIGRAM ORAL DAILY. metFORMIN (GLUCOPHAGE) 500 MG TAB ORAL SPIRONOLACTONE (ALDACTONE) 50 MG TAB 50 MILLIGRAM ORAL DAILY. [thyroid] 90 MILLIGRAM DAILY. FUROSEMIDE (LASIX) 40 MG TAB 40 MILLIGRAM ORAL DAILY. Continue taking these medications: POTASSIUM CHLORIDE ER (KLOR-CON 10) 10 MEQ TAB.S R 10 MILLIEQUIVALENT ORAL DAILY. OMEPRAZOLE ER (PriLOSEC) 40 MG CAP.DR 40 MILLIGRAM ORAL DAILY. FLUTICASONE FUROATE/VILANTEROL 200/25 MC G/ACT (BREO ELLIPTA 200/25 MCG/ACT) 30 INH INHALER 1 PUFF INHALATION RT - DAILY. LATANOPROST (XALATAN 0.005% OPHTH SOLN) 2.5 ML O PHTH.SOLN DAILY. Instructions: 1 DROP INTO AFFECTED EYE ASPIRIN (ASPIRIN) 81 MG TAB.CHEW 81 MILLIGRAM ORAL DAILY. Start taking the following new medications: ALBUTEROL/IPRATROPIUM (DUONEB 3-0.5 MG/3ML) 3 ML NEB 3 MILLILITERS INHALATION EVERY 6 HOURS. Qty = 1 No Refills ENOXAPARIN (LOVENOX) 40 MG DISP.SYRIN 40 MILLIGRAM SUBCUTANEOUS EVERY 24 HOURS. Qty = 14 No Refills ATORVASTATIN (LIPITOR) 10 MG TAB 20 MILLIGRAM ORAL BEDTIME. Qty = 30 No Refills LOSARTAN (COZAAR) 25 MG TAB 25 MILLIGRAM ORAL DAILY. Qty = 30 No Refills METOPROLOL TARTRATE (LOPRESSOR) 25 MG TAB 25 MILLIGRAM ORAL EVERY 12 HOURS. Qty = 30 No Refills FUROSEMIDE (LASIX) 20 MG TAB 20 MILLIGRAM ORAL TWICE DAILY. Qty = 20 No Refills INSULIN GLARGINE (LANTUS SOLOSTAR) 100 UNITS/ML PEN.INJCTR 10 UNITS SUBCUTANEOUS DAILY. Qty = 1 No Refills INSULIN GLARGINE (LANTUS SOLOSTAR) 100 UNITS/ML PEN.INJCTR 5 UNITS SUBCUTANEOUS BEDTIME. Qty = 1 No Refills INSULIN LISPRO (HumaLOG U-100 CARTRIDGE) 100 UNI TS/ML CARTRIDGE 0 UNIT SUBCUTANEOUS EVERY 6 HOURS. Qty = 1 No Refills Instructions: HIGH DOSE SLIDING SCALE THYROID,PORK (ARMOUR THYROID) 60 MG TAB 105 MILLIGRAM ORAL DAILY. Qty = 1 No Refills Discharge Instructions Diet: cardiac Oral fluid restriction: Yes Mls allowed per day: 1 Activity: as tolerated Discharge management: less than 30 mins, face to face encounter Follow-up Appointments PCP: PCP: Amos Conway MD Follow up timeframe: In 2-3 weeks Attending Physician: Attending Physician: Afsahn Calderon MD Consulting provider 1: Provider 1: Matteo Oropeza MD Specialty: CARDIOVASC DIS Follow up timeframe: In 3 months Special instructions: for life vest Objective General VS/I O: Vital Signs: Date Time Temp Pulse Resp B/P B/P Pulse O2 O2 F low FiO2 Mean Ox Delivery Rate 09/09 1919 92 Room air 09/09 1615 98.2 83 16 120/66 84.0 97 Room air 09/09 1113 98.1 84 16 125/60 81.7 95 Room air 09/09 0912 Nasal 2.100607 cannula 09/09 0749 98.1 87 18 149/73 98.4 95 Room air 09/09 0721 98 Nasal 2.159668 28 cannula 10/17 0422 97.9 81 18 123/63 83.1 98 09/08 2334 98.2 80 18 135/69 90.9 95 09/08 2014 98.4 97 18 128/61 83.1 97 24 hour I O ending at 0700: 09/09 0700 09/08 1900 Intake Total 500 Output Total Balance 500 Intake, Oral 500 Number Voids 2 Physical Exam General appearance: alert, awake, oriented, no a cute distress, pleasant, conversational Head/Eyes: atraumatic, clear cornea, EOMI, normo cephalic ENT: moist mucosal membranes, normal nose Neck: full range of motion, non-tender, no JVD Cardiovascular: murmur Murmur: systolic 3/6 (systolic ) Respiratory: aerating well, clear to auscultatio n, symmetric expansion, no distress Abdomen: non-tender, soft, no distention Extremities: moves all, no cyanosis, no edema Musculoskeletal: normal inspection, no midline v ertebral tend, no paraspinal tenderness Neuro/PROCESS EXPERT: alert, oriented X 3, normal speech Skin: dry, intact, normal color Psychiatry: normal affect, normal judgment/insig ht, normal mood Quality Medications Current medication review: I attest that the foregoing medication list in t he medical record is true, accurate, and complete to the best of my knowled ge. Advanced Care Plan 65 or Older Discussed with: patient Discussion included: code status BMI Screening > 25 or < 18.5 BMI status/follow-up: abnl BMI, pt to F/U w/PCP Tobacco Use/Counseling Tobacco use/counseling: non tobacco user, no cou nseling needed HTN Screening/Follow-up Last documented vitals: Last Documented: Result Date Time Pulse Ox 92 09/09 1919 O2 Delivery Room air 09/09 1919 B/P 120/66 09/09 1615 B/P Mean 84.0 09/09 1615 Temp 98.2 09/09 1615 Pulse 83 09/09 1615 Resp 16 09/09 1615 O2 Flow Rate 2.562704 09/09 09 FiO2 28 09/09 07 B/P assess/follow-up: pre-existing hx of HTN Attestations Attestation needed: supervising physician Afshan Calderon 09/09/192033: Attestations Teaching Physician Attestation F/U visit w/ resident: I saw the patient with the resident and . . . agree with the resident's findings and plan. Pt was not accepted at the rehab place, will look into alternative PT option Electronically Signed by Christy Taylor MD R1 on 1 at 1935 Electronically Signed by Afshan Calderon MD on at 2035 RPT #:[id number] END OF REPORT 2019-09-09 03:06:00-00:00 [id number] [place] [id number] PATIENT NAME: ZARIA MURRELL ADMIT DATE: 9 ACCOUNT NO: [id number] ROOM NO: [facility] AGE: 79 REPORT TYPE: ELECTROCARDIOGRAM SEX: F ADMITTING PHYSICIAN:Afshan Calderon MD ATTENDING PHYSICIAN:Afshan Calderon MD Order: [id number] Test Reason : CAD Test Date/Time Stamp: FriSep 09 2019 03:06:16 Blood Pressure : / mmHG Vent. Rate : 077 BPM Atrial Rate : 077 BPM P-R Int : 154 ms QRS Dur : 088 ms QT Int : 368 ms P-R-T Axes : 057 -02 139 degree s QTc Int : 416 ms Normal sinus rhythm Possible Left atrial enlargement Left ventricular hypertrophy with repolarization abnormality Abnormal ECG When compared with ECG of 09-SEP-2019 03:03, No significant change was found Confirmed by AMOS CONWAY ([id number]) on 09/09/2019 7:38:35 AM Referred By: Afshan Calderon Confirmed by:AMOS DAVID at 0738 PATIENT NAME: ZARIA MURRELL 6825 2019-09-08 11:18:00-00:00 [facility] ([facility]) Nephrology Progress Note REPORT#:[id number] REPORT STATUS: Signed DATE:09/08/19 TIME: 1118 PATIENT: ZARIA MURRELL UNIT #: [id number] ROOM/BED: [address] : 42 AGE: 79 SEX: F ATTEND: Afshan Caldeorn MD ADM AUTHOR: Carmita Alva MD * ALL edits or amendments must be made on the [employer]/computer document * Subjective Chief Complaint: f/u DINA on CKD Comments: no acute events overnight Objective General VS/I O: Vital Signs: Date Time Temp Pulse Resp B/P B/P Pulse O2 O2 F low FiO2 Mean Ox Delivery Rate 09/08 1103 36.7 73 18 128/81 96.6 94 Room air 09/08 0738 95 Nasal 28 cannula 09/08 0725 36.5 78 18 133/64 87.0 94 Nasal cannula 09/08 0559 37.0 76 18 138/76 96.8 94 Nasal cannula 09/08 0014 36.9 71 18 132/56 81.7 97 Nasal cannula 09/08 0001 Nasal 2.818853 cannula 09/07 2230 95 Nasal 2.957715 28 cannula 09/07 2136 37.0 81 18 138/74 95.4 95 Nasal cannula 09/07 1719 36.8 79 16 119/61 80.7 91 09/07 1238 36.8 78 18 136/68 90.7 94 Medications Active Meds + DC'd Last 24 Hrs Insulin Glargine 5 UNITS BEDTIME SUBQ Latanoprost 1 DROP BEDTIME EACH EYE Furosemide 20 MG BID@0900,1700 PO Insulin Glargine 10 UNITS DAILY SUBQ Dextrose/Water 12.5 GM ASDIR PRN IV Dextrose/Water 25 GM ASDIR PRN IV Fluticasone Propionate 2 SPRAY DAILY NASAL (CKD) Furosemide 20 MG BID@0900,1700 IV (DC) Aspirin 81 MG DAILY PO Latanoprost 1 DROP DAILY EACH EYE (DC) Losartan Potassium 25 MG DAILY PO Potassium Chloride 10 MEQ DAILY PO Thyroid 105 MG DAILY PO Atorvastatin Calcium 20 MG BEDTIME PO Insulin Human Lispro HIGH DOSE SLIDING SCALE Q4H SUBQ Enoxaparin Sodium 40 MG Q24H SUBQ Metoprolol Tartrate 25 MG Q12HR PO Acetaminophen 500 MG Q6H PRN PRN PO Albuterol/Ipratropium 3 ML RTQ4H INH Insulin Glargine 10 UNITS BEDTIME SUBQ (DC) Hydralazine HCl 10 MG Q4H PRN PRN IV Dextrose/Water 12.5 GM ASDIR PRN IV (DC) Dextrose/Water 25 GM ASDIR PRN IV (DC) Physical Exam General appearance: no respiratory distress Cardiovascular: no rub Respiratory: decreased breath sounds Abdomen: normal bowel sounds, soft Extremities: no swelling Results Findings/Data: Laboratory Tests 09/08 1034 Blood Gas Puncture Site R Radial O2 Saturation (92.0 - 98.5 %) 95 ABG pH (7.35 - 7.45) 7.448 ABG pCO2 (35.0 - 45.0 mmHg) 35.2 ABG pO2 (75.0 - 100.0) 70 L ABG HCO3 (20.0 - 26.0 MMOL/L) 24.4 ABG Base Excess (-3.0 - 3.0 MMOL/L) 0.0 Reymundo Test (CHECK) YES O2 Delivery Device Room Air FiO2 (21 - 100 %) 21 Laboratory Tests 09/08 09/08 09/07 09/07 09/07 0758 0557 2141 1714 1238 Chemistry Sodium (137 - 145 MMOL/L) 136 L Potassium (3.5 - 5.1 MMOL/L) 4.3 Chloride (98 - 107 MMOL/L) 96 L Carbon Dioxide (22 - 30 MMOL/L) 30 Anion Gap (14 - 24 MMOL/L) 14 BUN (7 - 17 MG/DL) 30 H Creatinine (0.52 - 1.04 MG/DL) 1.20 H Glomerular Filtr Rate 44 Glucose (74 - 106 MG/DL) 249 H POC Glucose (60 - 99 MG/DL) 237 H 172 H 313 *H 167 H Calcium (8.4 - 10.2 MG/DL) 9.7 Laboratory Tests 09/08 0758 Hematology WBC (3.8 - 9.8 K/MM3) 9.9 H RBC (3.58 - 4.97 M/MM3) 4.37 Hgb (11.2 - 14.9 G/DL) 10.6 L Hct (33.2 - 43.5 %) 34.3 MCV (80.7 - 99.1 fL) 79 L MCH (27.0 - 34.1 pg) 24.3 L MCHC (32.2 - 35.7 %) 30.9 L RDW (12.1 - 15.2 %) 17.5 H Plt Count (129 - 368 K/MM3) 345 MPV (7.4 - 10.4 fl) 10.1 Neut % (Auto) (43 - 75 %) 68.5 Lymph % (Auto) (14 - 44 %) 15.9 [place] % (Auto) (4 - 13 %) 8.8 Eos % (Auto) (0 - 6 %) 4.5 Baso % (Auto) (0 - 2 %) 0.8 Neut # (Auto) (2.0 - 7.6 K/mm3) 6.76 Lymph # (Auto) (1.0 - 3.8 K/mm3) 1.57 [place] # (Auto) (0.1 - 0.8 K/mm3) 0.87 H Eos # (Auto) (0.0 - 0.2 K/mm3) 0.44 H Baso # (Auto) (0.0 - 0.2 K/mm3) 0.08 Immature Gran % (0.0 - 2.0 %) 1.5 Nucleated RBC % (0 - 1.0 %) 0.0 Nucleated RBCs # (Man) (0.0 - 0.1 K/mm3) 0.00 Diagnosis, Assessment Plan Free Text A P: 1. 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 Acute on chronic systolic and diastolic heart failure -does not appear grossly volume overload and caitlyn athing well currently -would hold off on diuretic due to #1 for now 3. Type 2 DM with DM nephropathy -DM management per primary team 4. HTN -restart home meds except GURU/ARB due to #1 5. CAD s/p LHC and stenting -per cardiology 6. Hypothyroidism -management per primary team 7. Anemia of CKD -Iron sat 6% -continue IV Iron series Electronically Signed by Carmita Alva MD on 09/09 at 1956 RPT #:[id number] END OF REPORT 2019-09-08 09:58:00-00:00 [facility] ([facility]) Hospitalist Progress Note REPORT#:[id number] REPORT STATUS: Signed DATE:09/08/19 TIME: 957 PATIENT: ZARIA MURRELL UNIT #: [id number] ROOM/BED: [address] : 42 AGE: 79 SEX: F ATTEND: Jane Calderon i, MD ADM AUTHOR: Christy Tyalor MD R1 * ALL edits or amendments must be made on the el [employer]ronic/computer document * Christy Taylor 09/08/19 0958: Subjective Chief Complaint: Dyspnea Free Text Subj Notes Free Subj Notes: patient seen and examined at bedside, no acute events overnight. Patient has no new complaints Diagnosis, Assessment Plan Free Text DxA P Notes Free Text DxA P Notes: 79 YO F w/ PMH of HF, Aortic Stenosis, DM, HTN, Hyperlipidemia, COPD Pancreatitis and PSH of Appendectomy, Ch olecystectomy, Left Knee Replacement C -Section is admitted to the ICU for Diuresis of Pulmonary Edema and Cardiopulmonary Arrest. The patient went into Ca rdiopulmonary arrest for 11 minutes and was succefully resusitated. Patient is intubated, awake and alert. ASSESSMENT 1. Cardiopulmonary Arrest w/ Sucessful Resusistation suspect to Cardiomyopathy 2 /2 Arrythmia vs. Acute on Chronic Systolic Heart Failure 2. Acute Hypoxic Respiratory Failure 3. DM 4. HTN 5. Hyperkalemia 6. Reactive Leukocytosis 7. Reactive Thrombocytosis 09/04 - Cardiopulmonary Arrest Continue Heart Cathetherization. EF of 20%. Consider ICD. Wait for Cardiology Inpt - Acute Hypoxic Respiratory Failure Intubation. Continue Diuretic Administration un til cleared for Extubation. Monitor Inspiratory - Flow Rate, RR and Tidal Vo lume - DM Mangage with Insulin Lispro SubQ 4 H Glargine 1 0 Units SubQ Before Bedtime - Hyperkalemia Continue Insulin. Continue Diuretics. Order BMP . Montor pH -HTN Hydralazine Q4 PRN 10mg - Thrombocytosis Leukocytosis Order CBC 09/05 - Cardiopulmonary Arrest Continue Heart Cathetherization. EF of 20%. Con librarian head External Defibrillator. Wait for Cardiology Inpt.Patient is extubated an d doing well. We will discuss with cardiology about the ex ternal defibrillator and resume GURU inhibitors when renal function is stabilized.. - Acute Hypoxic Respiratory Failure - Resolved Continue Diuretic Administration. - DM Mangage with Insulin Lispro SubQ 4 H Glargine 1 0 Units SubQ Before Bedtime - Hyperkalemia - Resolved Continue Insulin. Continue Diuretics. -HTN Hydralazine Q4 PRN 10mg - Leukocytosis - Resolved - Thromboyctosis Order CBC 09/06 - Cardiopulmonary Arrest Patient primary editorial assistant Dr. Conway follow ing along with Dr. Oropeza acute on chronic systolic heart failure LVEF 20 -40% 09/04/[address] D/c nitro patch. - Acute Hypoxic Respiratory Failure - Resolved Continue Diuretic Administration. - DM Mangage with Insulin Lispro SubQ 4 H Glargine 1 0 Units SubQ Before Bedtime - Hyperkalemia - Resolved Continue Insulin. Continue Diuretics. -HTN Hydralazine Q4 PRN 10mg agree with cardiology starting 25 mg Losartan - Leukocytosis - Resolved - Thromboyctosis Order CBC -CKD vs DINA d/t cardiac arrest will continue to trend BUN and creatinine. nephrology following -Hypothyroidsm continue home meds 09/07 - Cardiopulmonary Arrest followed by Dr. Conway following along with Dr Celia Oropeza patient will need food service counter clerk on discharge. - SOB and productive cough descrease lasix - DM uncontrolled Mangage with Insulin Lantus 10 units in morning 5 units at night. - Hyperkalemia - Resolved Continue Insulin. Continue Diuretics. -HTN Hydralazine Q4 PRN 10mg 25 mg Losartan started yesterday blood pressure today 146/80 - Thromboyctosis will follow up cbc tomorrow -CKD vs DINA d/t cardiac arrest will continue to trend BUN and creatinine. nephrology following -Hypothyroidsm continue home meds -Acute Hypoxic Respiratory Failure - Resolved - Leukocytosis - Resolved Quality Medications Current medication review: I attest that the foregoing medication list in t he medical record is true, accurate, and complete to the best of my knowled ge. Advanced Care Plan 65 or Older Discussed with: patient Discussion included: code status BMI Screening > 25 or < 18.5 BMI status/follow-up: abnl BMI, pt to F/U w/PCP Afshan Calderon 09/08/191813: Attestations Teaching Physician Attestation F/U visit w/ resident: I saw the patient with the resident and . . . agree with the resident's findings and plan. Pt can go to IPR, per DR Oropeza. Already has the life vest Needs ambulence for cardiac monitering. No accep tance yet. Needs to FU Dr Conway, and DR ochoa post DC agree with the resident's findings and plan EXCE PT: Electronically Signed by Christy Taylor MD R1 on 1 at 2011 RPT #:[id number] END OF REPORT 2019-09-08 09:58:00-00:00 [facility] ([facility]) Hospitalist Progress Note REPORT#:[id number] REPORT STATUS: Signed DATE:09/08/19 TIME: 957 PATIENT: ZARIA MURRELL UNIT #: [id number] ROOM/BED: [address] : 42 AGE: 79 SEX: F ATTEND: Afshan Calderon MD ADM AUTHOR: Christy Taylor MD R1 * ALL edits or amendments must be made on the [employer]/computer document * Christy Taylor 09/08/19 0958: Subjective Chief Complaint: Dyspnea Free Text Subj Notes Free Subj Notes: patient seen and examined at bedside, no acute events overnight. Patient has no new complaints Diagnosis, Assessment Plan Free Text DxA P Notes Free Text DxA P Notes: 79 YO F w/ PMH of HF, Aortic Stenosis, DM, HTN, Hyperlipidemia, COPD Pancreatitis and PSH of Appendectomy, Ch olecystectomy, Left Knee Replacement C -Section is admitted to the ICU for Diuresis of Pulmonary Edema and Cardiopulmonary Arrest. The patient went into Ca rdiopulmonary arrest for 11 minutes and was succefully resusitated. Patient is intubated, awake and alert. ASSESSMENT 1. Cardiopulmonary Arrest w/ Sucessful Resusistation suspect to Cardiomyopathy 2 /2 Arrythmia vs. Acute on Chronic Systolic Heart Failure 2. Acute Hypoxic Respiratory Failure 3. DM 4. HTN 5. Hyperkalemia 6. Reactive Leukocytosis 7. Reactive Thrombocytosis 09/04 - Cardiopulmonary Arrest Continue Heart Cathetherization. EF of 20%. Consider ICD. Wait for Cardiology Inpt - Acute Hypoxic Respiratory Failure Intubation. Continue Diuretic Administration un til cleared for Extubation. Monitor Inspiratory - Flow Rate, RR and Tidal Vo lume - DM Mangage with Insulin Lispro SubQ 4 H Glargine 1 0 Units SubQ Before Bedtime - Hyperkalemia Continue Insulin. Continue Diuretics. Order BMP . Kareemor pH -HTN Hydralazine Q4 PRN 10mg - Thrombocytosis Leukocytosis Order CBC 09/05 - Cardiopulmonary Arrest Continue Heart Cathetherization. EF of 20%. Con librarian head External Defibrillator. Wait for Cardiology Inpt.Patient is extubated an d doing well. We will discuss with cardiology about the ex ternal defibrillator and resume GURU inhibitors when renal function is stabilized.. - Acute Hypoxic Respiratory Failure - Resolved Continue Diuretic Administration. - DM Mangage with Insulin Lispro SubQ 4 H Glargine 10 Units SubQ Before Bedtime - Hyperkalemia - Resolved Continue Insulin. Continue Diuretics. -HTN Hydralazine Q4 PRN 10mg - Leukocytosis - Resolved - Thromboyctosis Order CBC 09/06 - Cardiopulmonary Arrest Patient primary editorial assistant Dr. Conway follow ing along with Dr. Oropeza acute on chronic systolic heart failure LVEF 20 -40% 09/04/[address] D/c nitro patch. - Acute Hypoxic Respiratory Failure - Resolved Continue Diuretic Administration. - DM Mangage with Insulin Lispro SubQ 4 H Glargine 1 0 Units SubQ Before Bedtime - Hyperkalemia - Resolved Continue Insulin. Continue Diuretics. -HTN Hydralazine Q4 PRN 10mg agree with cardiology starting 25 mg Losartan - Leukocytosis - Resolved - Thromboyctosis Order CBC -CKD vs DINA d/t cardiac arrest will continue to trend BUN and creatinine. nephrology following -Hypothyroidsm continue home meds 09/07 - Cardiopulmonary Arrest followed by Dr. Conway following along with Dr Celia Oropeza patient will need food service counter clerk on discharge. - SOB and productive cough descrease lasix - DM uncontrolled Mangage with Insulin Lantus 10 units in morning 5 units at night. - Hyperkalemia - Resolved Continue Insulin. Continue Diuretics. -HTN Hydralazine Q4 PRN 10mg 25 mg Losartan started yesterday blood pressure today 146/80 - Thromboyctosis will follow up cbc tomorrow -CKD vs DINA d/t cardiac arrest will continue to trend BUN and creatinine. nephrology following -Hypothyroidsm continue home meds -Acute Hypoxic Respiratory Failure - Resolved - Leukocytosis - Resolved Quality Medications Current medication review: I attest that the foregoing medication list in t he medical record is true, accurate, and complete to the best of my knowled ge. Advanced Care Plan 65 or Older Discussed with: patient Discussion included: code status BMI Screening > 25 or < 18.5 BMI status/follow-up: abnl BMI, pt to F/U w/PCP Afshan Calderon 09/08/19 0024: Attestations Teaching Physician Attestation F/U visit w/ resident: I saw the patient with the resident and . . . agree with the resident's findings and plan. Pt can go to IPR, per DR Oropeza. Already has the life vest Needs ambulence for cardiac monitering. No accep tance yet. Needs to FU Dr Conway, and DR ochoa post DC agree with the resident's findings and plan EXCE PT: Electronically Signed by Christy Taylor MD R1 on 1 at 2011 RPT #:[id number] END OF REPORT 2019-09-08 09:58:00-00:00 [facility] ([facility] Hospitalist Progress Note REPORT#:[id number] REPORT STATUS: Signed DATE:09/08/19 TIME: 957 PATIENT: ZARIA MURRELL UNIT #: [id number] ROOM/BED: [address] : 42 AGE: 79 SEX: F ATTEND: Afshan Calderon MD ADM AUTHOR: Christy Taylor MD R1 * ALL edits or amendments must be made on the [employer]/computer document * Christy Taylor 09/08/19 0958: Subjective Chief Complaint: Dyspnea Free Text Subj Notes Free Subj Notes: patient seen and examined at bedside, no acute events overnight. Patient has no new complaints Diagnosis, Assessment Plan Free Text DxA P Notes Free Text DxA P Notes: 79 YO F w/ PMH of HF, Aortic Stenosis, DM, HTN, Hyperlipidemia, COPD Pancreatitis and PSH of Appendectomy, Ch olecystectomy, Left Knee Replacement C -Section is admitted to the ICU for Diuresis of Pulmonary Edema and Cardiopulmonary Arrest. The patient went into Ca rdiopulmonary arrest for 11 minutes and was succefully resusitated. Patient is intubated, awake and alert. ASSESSMENT 1. Cardiopulmonary Arrest w/ Sucessful Resusistation suspect to Cardiomyopathy 2 /2 Arrythmia vs. Acute on Chronic Systolic Heart Failure 2. Acute Hypoxic Respiratory Failure 3. DM 4. HTN 5. Hyperkalemia 6. Reactive Leukocytosis 7. Reactive Thrombocytosis 09/04 - Cardiopulmonary Arrest Continue Heart Cathetherization. EF of 20%. Consider ICD. Wait for Cardiology Inpt - Acute Hypoxic Respiratory Failure Intubation. Continue Diuretic Administration un til cleared for Extubation. Monitor Inspiratory - Flow Rate, RR and Tidal Vo lume - DM Mangage with Insulin Lispro SubQ 4 H Glargine 1 0 Units SubQ Before Bedtime - Hyperkalemia Continue Insulin. Continue Diuretics. Order OMAR . Ree pH -HTN Hydralazine Q4 PRN 10mg - Thrombocytosis Leukocytosis Order CBC 09/05 - Cardiopulmonary Arrest Continue Heart Cathetherization. EF of 20%. Con librarian head External Defibrillator. Wait for Cardiology Inpt.Patient is extubated an d doing well. We will discuss with cardiology about the ex ternal defibrillator and resume GURU inhibitors when renal function is stabilized.. - Acute Hypoxic Respiratory Failure - Resolved Continue Diuretic Administration. - DM Mangage with Insulin Lispro SubQ 4 H Glargine 1 0 Units SubQ Before Bedtime - Hyperkalemia - Resolved Continue Insulin. Continue Diuretics. -HTN Hydralazine Q4 PRN 10mg - Leukocytosis - Resolved - Thromboyctosis Order CBC 09/06 - Cardiopulmonary Arrest Patient primary editorial assistant Dr. Conway follow ing along with Dr. Oropeza acute on chronic systolic heart failure LVEF 20 -40% 09/04/[address] D/c nitro patch. - Acute Hypoxic Respiratory Failure - Resolved Continue Diuretic Administration. - DM Mangage with Insulin Lispro SubQ 4 H Glargine 1 0 Units SubQ Before Bedtime - Hyperkalemia - Resolved Continue Insulin. Continue Diuretics. -HTN Hydralazine Q4 PRN 10mg agree with cardiology starting 25 mg Losartan - Leukocytosis - Resolved - Thromboyctosis Order CBC -CKD vs DINA d/t cardiac arrest will continue to trend BUN and creatinine. nephrology following -Hypothyroidsm continue home meds 09/07 - Cardiopulmonary Arrest followed by Dr. Conway following along with Dr Celia Oropeza patient will need food service counter clerk on discharge. - SOB and productive cough descrease lasix - DM uncontrolled Mangage with Insulin Lantus 10 units in morning 5 units at night. - Hyperkalemia - Resolved Continue Insulin. Continue Diuretics. -HTN Hydralazine Q4 PRN 10mg 25 mg Losartan started yesterday blood pressure today 146/80 - Thromboyctosis will follow up cbc tomorrow -CKD vs DINA d/t cardiac arrest will continue to trend BUN and creatinine. nephrology following -Hypothyroidsm continue home meds -Acute Hypoxic Respiratory Failure - Resolved - Leukocytosis - Resolved Quality Medications Current medication review: I attest that the foregoing medication list in t he medical record is true, accurate, and complete to the best of my knowled ge. Advanced Care Plan 65 or Older Discussed with: patient Discussion included: code status BMI Screening > 25 or < 18.5 BMI status/follow-up: abnl BMI, pt to F/U w/PCP Afshan Calderon 09/08/194: Attestations Teaching Physician Attestation F/U visit w/ resident: I saw the patient with the resident and . . . agree with the resident's findings and plan. Pt can go to IPR, per DR Oropeza. Already has the life vest Needs ambulence for cardiac monitering. No accep tance yet. Needs to FU Dr Conway, and DR ochoa post DC Electronically Signed by Christy Taylor MD R1 on 1 at 2011 Electronically Signed by Afshan Calderon MD on at 2005 RPT #:[id number] END OF REPORT 2019-09-08 09:14:00-00:00 [id number] [address] PATIENT NAME: ZARIA MURRELL ADMIT DATE: 9 ACCOUNT NO: [id number] ROOM NO: Z.442 AGE: 79 REPORT TYPE: ELECTROCARDIOGRAM SEX: F ADMITTING PHYSICIAN:Afshan Calderon MD ATTENDING PHYSICIAN:Afshan Calderon MD Order: [id number] Test Reason : CAD Test Date/Time Stamp: FriSep 08 2019 09:14:16 Blood Pressure : / mmHG Vent. Rate : 087 BPM Atrial Rate : 087 BPM P-R Int : 158 ms QRS Dur : 080 ms QT Int : 388 ms P-R-T Axes : 070 037 140 degree s QTc Int : 466 ms Normal sinus rhythm Nonspecific ST and T wave abnormality Abnormal ECG When compared with ECG of 07-SEP-2019 08:17, No significant change was found Confirmed by AMOS CONWAY ([id number]) on 09/08/2019 5:05:16 PM Referred By: Afshan Calderon Confirmed by:AMOS DAVID at 1705 PATIENT NAME: ZARIA MURRELL 6825 2019-09-08 06:13:00-00:00 [facility] ([facility] Cardiology Progress Note REPORT#:[id number] REPORT STATUS: Signed DATE:09/08/19 TIME: 612 PATIENT: ZARIA MURRELL UNIT #: [id number] ROOM/BED: [address] : 42 AGE: 79 SEX: F ATTEND: Afshan Calderon MD ADM AUTHOR: Matteo Oropeza MD * ALL edits or amendments must be made on the [employer]/computer document * Subjective Chief Complaint: Dyspnea Patient reports: No: chest pain, palpitations, shortness of breat h. Objective General VS/I O: Vital Signs: Date Time Temp Pulse Resp B/P B/P Pulse O2 O2 F low FiO2 Mean Ox Delivery Rate 09/08 0559 98.6 76 18 138/76 96.8 94 Nasal cannula 09/08 0014 98.4 71 18 132/56 81.7 97 Nasal cannula 09/08 0001 Nasal 2.906458 cannula 09/07 2230 95 Nasal 2.256786 28 cannula 09/07 2136 98.6 81 18 138/74 95.4 95 Nasal cannula 09/07 1719 98.2 79 16 119/61 80.7 91 09/07 1238 98.2 78 18 136/68 90.7 94 09/07 0938 Nasal 2.887049 cannula 09/07 0913 98.1 80 18 146/80 101.7 96 09/07 0801 96 Nasal 2.578949 28 cannula Patient Weight Weight (lb): 220 Weight (oz): 7.4 Weight (kg): 99.79 Medications: Active Meds + DC'd Last 24 Hrs Insulin Glargine 5 UNITS BEDTIME SUBQ Latanoprost 1 DROP BEDTIME EACH EYE Furosemide 20 MG BID@0900,1700 PO Insulin Glargine 10 UNITS DAILY SUBQ Dextrose/Water 12.5 GM ASDIR PRN IV Dextrose/Water 25 GM ASDIR PRN IV Fluticasone Propionate 2 SPRAY DAILY NASAL (CKD) Bisacodyl 5 MG ONCE ONE PO (DC) Furosemide 20 MG BID@0900,1700 IV (DC) Aspirin 81 MG DAILY PO Latanoprost 1 DROP DAILY EACH EYE (DC) Losartan Potassium 25 MG DAILY PO Potassium Chloride 10 MEQ DAILY PO Thyroid 105 MG DAILY PO Atorvastatin Calcium 20 MG BEDTIME PO Insulin Human Lispro HIGH DOSE SLIDING SCALE Q4H SUBQ Enoxaparin Sodium 40 MG Q24H SUBQ Metoprolol Tartrate 25 MG Q12HR PO Acetaminophen 500 MG Q6H PRN PRN PO Albuterol/Ipratropium 3 ML RTQ4H INH Insulin Glargine 10 UNITS BEDTIME SUBQ (DC) Hydralazine HCl 10 MG Q4H PRN PRN IV Dextrose/Water 12.5 GM ASDIR PRN IV (DC) Dextrose/Water 25 GM ASDIR PRN IV (DC) Physical Exam General appearance: alert, awake, oriented Head/Eyes: atraumatic, normocephalic ENT: moist mucosal membranes Neck: no JVD Cardiovascular: CV assessment: regular rate and rhythm Respiratory: clear to auscultation, no distress Abdomen: soft, non-tender Upper extremity: UE assessment: no edema Lower extremity: LE assessment: no edema Musculoskeletal: full range of motion Neuro/PROCESS EXPERT: alert, oriented X 3, CN II-XII intact Skin: dry, intact Psychiatry: normal affect, normal judgment/insig ht, normal mood Results Findings/Data: Laboratory Tests 09/07 09/07 09/07 09/07 2141 1714 1238 0927 Chemistry POC Glucose (60 - 99 MG/DL) 172 H 313 *H 167 H 266 H Diagnosis, Assessment Plan Free Text DxA P Notes Free Text DxA P Notes: IMP: Acute on chronic systolic heart failure LVEF 20-24% by echo 09/04/19 s/p cardiopulmonary arrest - respiratory arrest with PEA Moderate CAD PLAN: Continue diuresis with IV lasix, ARB, Beta hermann. Lifevest external defibrillator for 90 days. Re assess LVEF at 90 days. If LVEF <= 35% at 90 days, AICD. Review labs at 0710 RPT #:[id number] END OF REPORT 2019-09-07 12:57:00-00:00 [facility] ([facility] Cardiology Progress Note REPORT#:[id number] REPORT STATUS: Signed DATE:09/07/19 TIME: 1257 PATIENT: ZARIA MURRELL UNIT #: [id number] ROOM/BED: [address] : 42 AGE: 79 SEX: F ATTEND: Afshan Calderon MD ADM AUTHOR: Matteo Oropeza MD * ALL edits or amendments must be made on the [employer]/computer document * Subjective Chief Complaint: Dyspnea Patient reports: No: chest pain, palpitations, shortness of breat h. Objective General VS/I O: 24 hour I O ending at 0700: 09/07 0700 09/06 1900 Intake Total 500 900 Output Total 500 Balance 500 400 Intake, Oral 500 900 Number Voids 2 2 Output, Urine 500 Vital Signs: Date Time Temp Pulse Resp B/P B/P Pulse O2 O2 F low FiO2 Mean Ox Delivery Rate 09/07 1238 98.2 78 18 136/68 90.7 94 09/07 0913 98.1 80 18 146/80 101.7 96 09/07 0801 96 Nasal 2.045350 28 cannula 09/07 0504 98.1 81 16 133/70 90.8 93 Nasal 2.00 0000 cannula 09/07 0003 98.2 74 16 120/67 84.3 94 09/06 2314 Nasal 2.934103 cannula 09/06 2114 94 Nasal 2.203642 28 cannula 09/06 1946 98.5 85 16 119/70 86 94 Nasal 2.0000 00 cannula 09/06 1602 98.2 94 18 128/77 94.1 93 09/06 1500 87 26 134/59 85 09/06 1431 76 38 131/60 86 09/06 1300 85 37 124/58 83 93 Patient Weight Weight (lb): 220 Weight (oz): 7.4 Weight (kg): 99.79 Medications: Active Meds + DC'd Last 24 Hrs Insulin Glargine 5 UNITS BEDTIME SUBQ Latanoprost 1 DROP BEDTIME EACH EYE Furosemide 20 MG BID@0900,1700 PO Insulin Glargine 10 UNITS DAILY SUBQ Dextrose/Water 12.5 GM ASDIR PRN IV Dextrose/Water 25 GM ASDIR PRN IV Fluticasone Propionate 2 SPRAY DAILY NASAL (CKD) Bisacodyl 5 MG ONCE ONE PO (DC) Furosemide 20 MG BID@0900,1700 IV (DC) Ferric Sodium Gluconate Complex 125 MG Q24H IV ( DC) Sodium Chloride 100 ML Aspirin 81 MG DAILY PO Latanoprost 1 DROP DAILY EACH EYE (DC) Losartan Potassium 25 MG DAILY PO Potassium Chloride 10 MEQ DAILY PO Thyroid 105 MG DAILY PO Atorvastatin Calcium 20 MG BEDTIME PO Insulin Human Lispro HIGH DOSE SLIDING SCALE Q4H SUBQ Enoxaparin Sodium 40 MG Q24H SUBQ Metoprolol Tartrate 25 MG Q12HR PO Acetaminophen 500 MG Q6H PRN PRN PO Albuterol/Ipratropium 3 ML RTQ4H INH Insulin Glargine 10 UNITS BEDTIME SUBQ (DC) Mupirocin 1 APPLIC BID NASAL (DC) Hydralazine HCl 10 MG Q4H PRN PRN IV Dextrose/Water 12.5 GM ASDIR PRN IV (DC) Dextrose/Water 25 GM ASDIR PRN IV (DC) Physical Exam General appearance: alert, awake, oriented Head/Eyes: atraumatic, normocephalic ENT: moist mucosal membranes Neck: no JVD Cardiovascular: CV assessment: regular rate and rhythm Respiratory: clear to auscultation, no distress Abdomen: soft, non-tender Upper extremity: UE assessment: no edema Lower extremity: LE assessment: no edema Musculoskeletal: full range of motion Neuro/PROCESS EXPERT: alert, oriented X 3, CN II-XII intact Skin: dry, intact Psychiatry: normal affect, normal judgment/insig ht, normal mood Results Findings/Data: Laboratory Tests 09/07 09/07 09/07 09/07 09/06 1238 0927 0601 0153 1939 Chemistry POC Glucose (60 - 99 MG/DL) 167 H 266 H 201 H 2 10 H 161 H 09/06 09/06 1600 1435 Chemistry POC Glucose (60 - 99 MG/DL) 300 H 242 H Diagnosis, Assessment Plan Free Text DxA P Notes Free Text DxA P Notes: IMP: Acute on chronic systolic heart failure LVEF 20-24% by echo 09/04/19 s/p cardiopulmonary arrest Moderate CAD PLAN: Continue diuresis with IV lasix, ARB, Beta hermann. at 0610 [facility] #:[id number] END OF REPORT 2019-09-07 09:53:00-00:00 [facility] ([facility]) Nephrology Progress Note REPORT#:[id number] REPORT STATUS: Signed DATE:09/07/19 TIME: 952 PATIENT: ZARIA MURRELL UNIT #: [id number] ROOM/BED: [address] : 42 AGE: 79 SEX: F ATTEND: Afshan Calderon MD ADM AUTHOR: Carmita Alva MD * ALL edits or amendments must be made on the [employer] / ?.?? document * Subjective Chief Complaint: f/u DINA on CKD Comments: denies chest pain or SOB Objective General VS/I O: Vital Signs: Date Time Temp Pulse Resp B/P B/P Pulse O2 O2 F low FiO2 Mean Ox Delivery Rate 09/07 09 36.7 80 18 146/80 101.7 96 09/07 0801 96 Nasal 2.195570 28 cannula 09/07 0504 36.7 81 16 133/70 90.8 93 Nasal 2.0 76247 cannula 09/07 0003 36.8 74 16 120/67 84.3 94 09/06 2314 Nasal 2.576808 cannula 09/06 2114 94 Nasal 2.335087 28 cannula 09/06 1946 36.9 85 16 119/70 86 94 Nasal 2.0000 00 cannula 09/06 1602 36.8 94 18 128/77 94.1 93 09/06 1500 87 26 134/59 85 09/06 1431 76 38 131/60 86 09/06 1300 85 37 124/58 83 93 09/06 1207 135/60 87 09/06 1100 84 32 152/70 100 94 09/06 1030 99 45 93 09/06 1000 91 22 135/63 91 95 24 hour I O ending at 0700: 09/07 0700 09/06 1900 Intake Total 500 900 Output Total 500 Balance 500 400 Intake, Oral 500 900 Number Voids 2 2 Output, Urine 500 Medications Active Meds + DC'd Last 24 Hrs Bisacodyl 5 MG ONCE ONE PO Furosemide 20 MG BID@0900,1700 IV Ferric Sodium Gluconate Complex 125 MG Q24H IV ( DC) Sodium Chloride 100 ML Aspirin 81 MG DAILY PO Latanoprost 1 DROP DAILY EACH EYE Losartan Potassium 25 MG DAILY PO Potassium Chloride 10 MEQ DAILY PO Thyroid 105 MG DAILY PO Atorvastatin Calcium 20 MG BEDTIME PO Insulin Human Lispro HIGH DOSE SLIDING SCALE Q4H SUBQ Enoxaparin Sodium 40 MG Q24H SUBQ Metoprolol Tartrate 25 MG Q12HR PO Acetaminophen 500 MG Q6H PRN PRN PO Albuterol/Ipratropium 3 ML RTQ4H INH Insulin Glargine 10 UNITS BEDTIME SUBQ Mupirocin 1 APPLIC BID NASAL (DC) Hydralazine HCl 10 MG Q4H PRN PRN IV Dextrose/Water 12.5 GM ASDIR PRN IV Dextrose/Water 25 GM ASDIR PRN IV Physical Exam General appearance: no respiratory distress Cardiovascular: no rub Respiratory: decreased breath sounds Abdomen: normal bowel sounds, soft Extremities: no swelling Results Findings/Data: Laboratory Tests 09/07 09/07 09/06 09/06 0601 0153 1939 1600 Chemistry POC Glucose (60 - 99 MG/DL) 201 H 210 H 161 H 3 00 H Diagnosis, Assessment Plan Free Text A P: 1. 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 Acute on chronic systolic and diastolic heart failure -does not appear grossly volume overload and caitlyn athing well currently -would hold off on diuretic due to #1 for now 3. Type 2 DM with DM nephropathy -DM management per primary team 4. HTN -restart home meds except GURU/ARB due to #1 5. CAD s/p LHC and stenting -per cardiology 6. Hypothyroidism -management per primary team 7. Anemia of CKD -Iron sat 6% -start IV Iron series Electronically Signed by Carmita Alva MD on 09/08 at 1118 [facility] #:[id number] END OF REPORT 2019-09-07 09:01:00-00:00 [facility] ([facility]) Hospitalist Progress Note REPORT#:[id number] REPORT STATUS: Signed DATE:09/07/19 TIME: 09 PATIENT: ZARIA MURRELL UNIT #: [id number] ROOM/BED: [address] : 42 AGE: 79 SEX: F ATTEND: Afshan Calderon MD ADM AUTHOR: Christy Taylor MD R1 * ALL edits or amendments must be made on the [employer] / ?.?? document * Subjective Chief Complaint: Dyspnea Free Text Subj Notes Free Subj Notes: Patient was seen and examined at bedside, no acu te events overnight. Patient reports still having productive cough and SOB wh en she leans forward. She has moved her bowels but reports still having some c onstipation Review of Systems Constitutional: Denies: chills, fever. Respiratory: Reports: WHITE (dyspnea on exe rtion), productive cough (sputum), SOB. Denies: non productive cough, pleuritic pain. Cardiovascular: Denies: chest pain, palpitations. GI: Reports: constipation. Denies: abdominal pain, d iarrhea, nausea, vomiting. : Denies: dysuria, flank pain, frequency. Objective General VS/I O: Vital Signs: Date Time Temp Pulse Resp B/P B/P Pulse O2 O2 F low FiO2 Mean Ox Delivery Rate 09/07 0913 98.1 80 18 146/80 101.7 96 09/07 0801 96 Nasal 2.589013 28 cannula 09/07 0504 98.1 81 16 133/70 90.8 93 Nasal 2.00 0000 cannula 09/07 0003 98.2 74 16 120/67 84.3 94 09/06 2314 Nasal 2.957660 cannula 09/06 2114 94 Nasal 2.281526 28 cannula 09/06 1946 98.5 85 16 119/70 86 94 Nasal 2.0000 00 cannula 09/06 1602 98.2 94 18 128/77 94.1 93 09/06 1500 87 26 134/59 85 09/06 1431 76 38 131/60 86 09/06 1300 85 37 124/58 83 93 09/06 1207 135/60 87 09/06 1100 84 32 152/70 100 94 09/06 1030 99 45 93 09/06 1000 91 22 135/63 91 95 09/06 0930 90 16 127/59 85 91 24 hour I O ending at 0700: 09/07 0700 09/06 1900 Intake Total 500 900 Output Total 500 Balance 500 400 Intake, Oral 500 900 Number Voids 2 2 Output, Urine 500 Patient Weight Weight (lb): 220 Weight (oz): 7.4 Weight (kg): 99.79 Physical Exam General appearance: alert, awake, oriented, no a cute distress, pleasant, conversational, mental status normal, no respira tory distress Cardiovascular: murmur Murmur: systolic 3/6 (systolic ) Respiratory: crackles, aerating well, symmetric expansion Abdomen: non-tender, soft, no distention Genitourinary: no stanton Extremities: moves all, no cyanosis, no edema Neuro/PROCESS EXPERT: alert, oriented X 3, normal speech Skin: dry, intact, normal color, normal temperat ure, no rash Psychiatry: normal affect, normal judgment/insig ht, normal mood, no hallucinations Diagnosis, Assessment Plan Free Text DxA P Notes Free Text DxA P Notes: 79 YO F w/ PMH of HF, Aortic Stenosis, DM, HTN, Hyperlipidemia, COPD Pancreatitis and PSH of Appendectomy, Ch olecystectomy, Left Knee Replacement C -Section is admitted to the ICU for Diuresis of Pulmonary Edema and Cardiopulmonary Arrest. The patient went into Ca rdiopulmonary arrest for 11 minutes and was succefully resusitated. Patient is intubated, awake and alert. ASSESSMENT 1. Cardiopulmonary Arrest w/ Sucessful Resusistation suspect to Cardiomyopathy 2 /2 Arrythmia vs. Acute on Chronic Systolic Heart Failure 2. Acute Hypoxic Respiratory Failure 3. DM 4. HTN 5. Hyperkalemia 6. Reactive Leukocytosis 7. Reactive Thrombocytosis 09/04 - Cardiopulmonary Arrest Continue Heart Cathetherization. EF of 20%. Consider ICD. Wait for Cardiology Inpt - Acute Hypoxic Respiratory Failure Intubation. Continue Diuretic Administration un til cleared for Extubation. Monitor Inspiratory - Flow Rate, RR and Tidal Vo lume - DM Mangage with Insulin Lispro SubQ 4 H Glargine 1 0 Units SubQ Before Bedtime - Hyperkalemia Continue Insulin. Continue Diuretics. Order BMP . Kareemor pH -HTN Hydralazine Q4 PRN 10mg - Thrombocytosis Leukocytosis Order CBC 09/05 - Cardiopulmonary Arrest Continue Heart Cathetherization. EF of 20%. Con librarian head External Defibrillator. Wait for Cardiology Inpt.Patient is extubated an d doing well. We will discuss with cardiology about the ex ternal defibrillator and resume GURU inhibitors when renal function is stabilized.. - Acute Hypoxic Respiratory Failure - Resolved Continue Diuretic Administration. - DM Mangage with Insulin Lispro SubQ 4 H Glargine 1 0 Units SubQ Before Bedtime - Hyperkalemia - Resolved Continue Insulin. Continue Diuretics. -HTN Hydralazine Q4 PRN 10mg - Leukocytosis - Resolved - Thromboyctosis Order CBC 09/06 - Cardiopulmonary Arrest Patient primary editorial assistant Dr. Conway follow ing along with Dr. Oropeza acute on chronic systolic heart failure LVEF 20 -40% 09/04/[address] D/c nitro patch. - Acute Hypoxic Respiratory Failure - Resolved Continue Diuretic Administration. - DM Mangage with Insulin Lispro SubQ 4 H Glargine 1 0 Units SubQ Before Bedtime - Hyperkalemia - Resolved Continue Insulin. Continue Diuretics. -HTN Hydralazine Q4 PRN 10mg agree with cardiology starting 25 mg Losartan - Leukocytosis - Resolved - Thromboyctosis Order CBC -CKD vs DIAN d/t cardiac arrest will continue to trend BUN and creatinine. nephrology following -Hypothyroidsm continue home meds 09/07 - Cardiopulmonary Arrest followed by Dr. Conway following along with Dr Celia Oropeza - SOB and productive cough descrease lasix - DM uncontrolled Mangage with Insulin Lantus 10 units in morning 5 units at night. - Hyperkalemia - Resolved Continue Insulin. Continue Diuretics. -HTN Hydralazine Q4 PRN 10mg 25 mg Losartan started yesterday blood pressure today 146/80 - Thromboyctosis will follow up cbc tomorrow -CKD vs DINA d/t cardiac arrest will continue to trend BUN and creatinine. nephrology following -Hypothyroidsm continue home meds -Acute Hypoxic Respiratory Failure - Resolved - Leukocytosis - Resolved Quality Medications Current medication review: I attest that the foregoing medication list in t he medical record is true, accurate, and complete to the best of my knowled ge. Advanced Care Plan 65 or Older Discussed with: patient Discussion included: code status BMI Screening > 25 or < 18.5 BMI status/follow-up: abnl BMI, pt to F/U w/PCP Electronically Signed by Christy Taylor MD R1 on 1 at 1554 RPT #:[id number] END OF REPORT 2019-09-07 09:01:00-00:00 [facility] ([facility]) Hospitalist Progress Note REPORT#:[id number] REPORT STATUS: Signed DATE:09/07/19 TIME: 900 PATIENT: ZARIA MURRELL UNIT #: [id number] ROOM/BED: [address] : 42 AGE: 79 SEX: F ATTEND: Jane Calderon i, MD ADM AUTHOR: Christy Taylor MD R1 * ALL edits or amendments must be made on the [employer]/computer document * Christy Taylor 09/07/19 0901: Subjective Chief Complaint: Dyspnea Free Text Subj Notes Free Subj Notes: Patient was seen and examined at bedside, no acu te events overnight. Patient reports still having productive cough and SOB wh en she leans forward. She has moved her bowels but reports still having some c onstipation Review of Systems Constitutional: Denies: chills, fever. Respiratory: Reports: WHITE (dyspnea on exe rtion), productive cough (sputum), SOB. Denies: non productive cough, pleuritic pain. Cardiovascular: Denies: chest pain, palpitations. GI: Reports: constipation. Denies: abdominal pain, d iarrhea, nausea, vomiting. : Denies: dysuria, flank pain, frequency. Objective General VS/I O: Vital Signs: Date Time Temp Pulse Resp B/P B/P Pulse O2 O2 F low FiO2 Mean Ox Delivery Rate 09/07 0913 98.1 80 18 146/80 101.7 96 09/07 0801 96 Nasal 2.232300 28 cannula 09/07 0504 98.1 81 16 133/70 90.8 93 Nasal 2.00 0000 cannula 09/07 0003 98.2 74 16 120/67 84.3 94 09/06 2314 Nasal 2.940274 cannula 09/06 2114 94 Nasal 2.503806 28 cannula 09/06 1946 98.5 85 16 119/70 86 94 Nasal 2.0000 00 cannula 09/06 1602 98.2 94 18 128/77 94.1 93 09/06 1500 87 26 134/59 85 09/06 1431 76 38 131/60 86 09/06 1300 85 37 124/58 83 93 09/06 1207 135/60 87 09/06 1100 84 32 152/70 100 94 09/06 1030 99 45 93 09/06 1000 91 22 135/63 91 95 09/06 0930 90 16 127/59 85 91 24 hour I O ending at 0700: 09/07 0700 09/06 1900 Intake Total 500 900 Output Total 500 Balance 500 400 Intake, Oral 500 900 Number Voids 2 2 Output, Urine 500 Patient Weight Weight (lb): 220 Weight (oz): 7.4 Weight (kg): 99.79 Physical Exam General appearance: alert, awake, oriented, no a cute distress, pleasant, conversational, mental status normal, no respira tory distress Cardiovascular: murmur Murmur: systolic 3/6 (systolic ) Respiratory: crackles, aerating well, symmetric expansion Abdomen: non-tender, soft, no distention Genitourinary: no stanton Extremities: moves all, no cyanosis, no edema Neuro/PROCESS EXPERT: alert, oriented X 3, normal speech Skin: dry, intact, normal color, normal temperat ure, no rash Psychiatry: normal affect, normal judgment/insig ht, normal mood, no hallucinations Diagnosis, Assessment Plan Free Text DxA P Notes Free Text DxA P Notes: 79 YO F w/ PMH of HF, Aortic Stenosis, DM, HTN, Hyperlipidemia, COPD Pancreatitis and PSH of Appendectomy, Ch olecystectomy, Left Knee Replacement C -Section is admitted to the ICU for Diuresis of Pulmonary Edema and Cardiopulmonary Arrest. The patient went into Ca rdiopulmonary arrest for 11 minutes and was succefully resusitated. Patient is intubated, awake and alert. ASSESSMENT 1. Cardiopulmonary Arrest w/ Sucessful Resusistation suspect to Cardiomyopathy 2 /2 Arrythmia vs. Acute on Chronic Systolic Heart Failure 2. Acute Hypoxic Respiratory Failure 3. DM 4. HTN 5. Hyperkalemia 6. Reactive Leukocytosis 7. Reactive Thrombocytosis 09/04 - Cardiopulmonary Arrest Continue Heart Cathetherization. EF of 20%. Consider ICD. Wait for Cardiology Inpt - Acute Hypoxic Respiratory Failure Intubation. Continue Diuretic Administration un til cleared for Extubation. Monitor Inspiratory - Flow Rate, RR and Tidal Vo lume - DM Mangage with Insulin Lispro SubQ 4 H Glargine 1 0 Units SubQ Before Bedtime - Hyperkalemia Continue Insulin. Continue Diuretics. Order OMAR . Ree pH -HTN Hydralazine Q4 PRN 10mg - Thrombocytosis Leukocytosis Order CBC 09/05 - Cardiopulmonary Arrest Continue Heart Cathetherization. EF of 20%. Con librarian head External Defibrillator. Wait for Cardiology Inpt.Patient is extubated an d doing well. We will discuss with cardiology about the ex ternal defibrillator and resume GURU inhibitors when renal function is stabilized.. - Acute Hypoxic Respiratory Failure - Resolved Continue Diuretic Administration. - DM Mangage with Insulin Lispro SubQ 4 H Glargine 1 0 Units SubQ Before Bedtime - Hyperkalemia - Resolved Continue Insulin. Continue Diuretics. -HTN Hydralazine Q4 PRN 10mg - Leukocytosis - Resolved - Thromboyctosis Order CBC 09/06 - Cardiopulmonary Arrest Patient primary editorial assistant Dr. Conway follow ing along with Dr. Oropeza acute on chronic systolic heart failure LVEF 20 -40% 09/04/[address] D/c nitro patch. - Acute Hypoxic Respiratory Failure - Resolved Continue Diuretic Administration. - DM Mangage with Insulin Lispro SubQ 4 H Glargine 1 0 Units SubQ Before Bedtime - Hyperkalemia - Resolved Continue Insulin. Continue Diuretics. -HTN Hydralazine Q4 PRN 10mg agree with cardiology starting 25 mg Losartan - Leukocytosis - Resolved - Thromboyctosis Order CBC -CKD vs DINA d/t cardiac arrest will continue to trend BUN and creatinine. nephrology following -Hypothyroidsm continue home meds 09/07 - Cardiopulmonary Arrest followed by Dr. Conway following along with Dr Celia Oropeza - SOB and productive cough descrease lasix - DM uncontrolled Mangage with Insulin Lantus 10 units in morning 5 units at night. - Hyperkalemia - Resolved Continue Insulin. Continue Diuretics. -HTN Hydralazine Q4 PRN 10mg 25 mg Losartan started yesterday blood pressure today 146/80 - Thromboyctosis will follow up cbc tomorrow -CKD vs DINA d/t cardiac arrest will continue to trend BUN and creatinine. nephrology following -Hypothyroidsm continue home meds -Acute Hypoxic Respiratory Failure - Resolved - Leukocytosis - Resolved Quality Medications Current medication review: I attest that the foregoing medication list in t he medical record is true, accurate, and complete to the best of my knowled ge. Advanced Care Plan 65 or Older Discussed with: patient Discussion included: code status BMI Screening > 25 or < 18.5 BMI status/follow-up: abnl BMI, pt to F/U w/PCP Afshan Calderon 09/07/19 1729: Attestations Teaching Physician Attestation F/U visit w/ resident: I saw the patient with the resident and . . . agree with the resident's fi ndings and plan. Pt is s/p Resp arrest post PEA and has EF 20%. DW Dr oropeza wants the pt to have a life vest. No rehab beds available in , planning SNF at [facility] life Vest Electronically Signed by Christy Taylor MD R1 on 1 at 1554 Electronically Signed by Afshan Calderon MD on at 1730 [facility] #:[id number] END OF REPORT 2019-09-07 08:17:00-00:00 [id number] [address] PATIENT NAME: ZARIA MURRELL ADMIT DATE: 9 ACCOUNT NO: [id number] [facility] AGE: 79 REPORT TYPE: ELECTROCARDIOGRAM SEX: F ADMITTING PHYSICIAN:Afshan Calderon MD ATTENDING PHYSICIAN:Afshan Calderon MD Order: [id number] Test Reason : CAD Test Date/Time Stamp: FriSep 07 2019 08:17:51 Blood Pressure : / mmHG Vent. Rate : 078 BPM Atrial Rate : 078 BPM P-R Int : 150 ms QRS Dur : 078 ms QT Int : 374 ms P-R-T Axes : 064 008 135 degree s QTc Int : 426 ms Normal sinus rhythm Left ventricular hypertrophy with repolarization abnormality Abnormal ECG When compared with ECG of 06-SEP-2019 06:06, ST now depressed in Anterior leads T wave inversion now evident in Anterior leads Confirmed by AMOS CONWAY ([id number]) on 09/07/2019 5:47:45 PM Referred By: Afshan Calderon Confirmed by:AMOS DAVID at 1747 PATIENT NAME: ZARIA MURRELL [id number] 2019-09-06 10:57:00-00:00 [facility] ([facility] Nephrology Progress Note REPORT#:[id number] REPORT STATUS: Signed DATE:09/06/19 TIME: 1057 PATIENT: ZARIA MURRELL UNIT #: [id number] ROOM/BED: [address] : 42 AGE: 79 SEX: F ATTEND: Afshan Calderon MD ADM AUTHOR: Carmita Alva MD * ALL edits or amendments must be made on the [employer] / ?.?? document * Subjective Chief Complaint: f/u DINA on CKD Comments: no acute complaints Objective General VS/I O: Vital Signs: Date Time Temp Pulse Resp B/P B/P Pulse O2 O2 F low FiO2 Mean Ox Delivery Rate 09/06 0627 96 Nasal 2.629927 28 cannula 09/06 0600 88 29 139/89 104 95 09/06 0530 82 16 141/63 90 95 09/06 0500 79 13 137/63 91 93 09/06 0430 80 14 132/60 87 92 09/06 0420 36.5 09/06 0400 80 28 125/72 94 94 09/06 0345 22 09/06 0330 82 18 139/64 92 93 09/06 0300 82 27 122/62 86 94 09/06 0230 79 29 130/59 85 91 09/06 0215 15 09/06 0213 37.1 09/06 0200 82 23 142/64 92 92 09/06 0130 77 27 124/56 80 93 09/06 0100 76 26 130/60 87 92 09/06 0026 15 09/06 0015 15 09/06 0006 36.7 09/06 0000 81 141/66 95 96 09/05 2345 28 09/05 2330 84 33 134/63 90 95 09/05 2300 89 33 132/73 94 92 09/05 2230 99 36 144/58 83 92 09/05 2200 91 33 138/62 89 97 09/050 96 30 155/61 88 95 09/055 28 09/05 2100 95 34 150/62 89 93 09/05 2030 102 37 132/60 86 93 09/05 2000 102 35 135/67 96 94 09/05 194 96 20 91 09/05 194 Nasal 3.616355 cannula 09/05 1930 96 34 130/82 96 93 09/05 1923 98 30 162/70 100 94 09/05 1917 37.2 09/05 1900 99 26 94 09/05 1845 94 39 92 09/05 1835 95 Nasal 3.934483 32 cannula 09/05 1741 85 29 122/67 87 93 09/05 1647 84 25 144/65 89 94 09/05 1617 89 39 133/60 86 94 09/05 1547 87 27 146/66 95 95 09/05 1517 92 56 114/58 80 96 09/05 1447 87 33 129/60 86 94 09/05 1417 86 35 131/77 98 94 09/05 1400 84 39 140/65 94 94 09/05 1345 82 35 138/64 92 94 09/05 1228 77 26 122/61 86 94 09/05 1145 82 27 139/96 113 92 09/05 1115 82 34 94 09/05 1100 81 32 134/60 87 94 24 hour I O ending at 0700: 09/06 0700 09/05 1900 Intake Total 720 Output Total 2200 Balance -1480 Intake, Oral 720 Output, Urine 2200 Patient 99.79 kg Weight Medications Active Meds + DC'd Last 24 Hrs Aspirin 81 MG DAILY PO Furosemide 40 MG DAILY PO (CAN) Latanoprost 1 DROP DAILY EACH EYE Losartan Potassium 25 MG DAILY PO Potassium Chloride 10 MEQ DAILY PO Thyroid 105 MG DAILY PO Atorvastatin Calcium 20 MG BEDTIME PO Insulin Human Lispro HIGH DOSE SLIDING SCALE Q4H SUBQ Enoxaparin Sodium 40 MG Q24H SUBQ Metoprolol Tartrate 25 MG Q12HR PO Atorvastatin Calcium 5 MG BEDTIME PO (DC) Acetaminophen 500 MG Q6H PRN PRN PO Albuterol/Ipratropium 3 ML RTQ4H INH Insulin Glargine 10 UNITS BEDTIME SUBQ Furosemide 40 MG BID@0900,1700 IV (DC) Mupirocin 1 APPLIC BID NASAL Aspirin 325 MG DAILY PO (DC) Hydralazine HCl 10 MG Q4H PRN PRN IV Nitroglycerin 1 INCH Q6HR TRANSDERM (DC) Dextrose/Water 12.5 GM ASDIR PRN IV Dextrose/Water 25 GM ASDIR PRN IV Physical Exam General appearance: no respiratory distress Cardiovascular: no rub Respiratory: decreased breath sounds Abdomen: normal bowel sounds, soft Extremities: no swelling Results Findings/Data: Laboratory Tests 09/0615 0615 0554 0158 2130 Chemistry Sodium (137 - 145 MMOL/L) 136 L Potassium (3.5 - 5.1 MMOL/L) 3.9 Chloride (98 - 107 MMOL/L) 98 Carbon Dioxide (22 - 30 MMOL/L) 30 Anion Gap (14 - 24 MMOL/L) 12 L BUN (7 - 17 MG/DL) 26 H Creatinine (0.52 - 1.04 MG/DL) 1.20 H Glomerular Filtr Rate 44 Glucose (74 - 106 MG/DL) 187 H POC Glucose (60 - 99 MG/DL) 167 H 122 H 264 H Calcium (8.4 - 10.2 MG/DL) 9.2 Phosphorus (2.5 - 4.5 MG/DL) 4.0 Magnesium (1.6 - 2.3 MG/DL) 2.0 Iron (37 - 170 MCG/DL) 24 L TIBC (265 - 497 MCG/DL) 415 % Saturation (12 - 57 %) 6 L Total Bilirubin (0.2 - 1.3 MG/DL) 0.3 AST (14 - 36 UNITS/L) 23 ALT (9 - 52 UNITS/L) 48 Total Alk Phosphatase (38 - 126 87 UNITS/L) Total Protein (6.3 - 8.2 G/DL) 6.9 Albumin (3.5 - 5.0 G/DL) 3.8 Laboratory Tests 09/06 0615 Hematology WBC (3.8 - 9.8 K/MM3) 11.8 H RBC (3.58 - 4.97 M/MM3) 4.21 Hgb (11.2 - 14.9 G/DL) 10.1 L Hct (33.2 - 43.5 %) 33.4 MCV (80.7 - 99.1 fL) 79 L MCH (27.0 - 34.1 pg) 24.0 L MCHC (32.2 - 35.7 %) 30.2 L RDW (12.1 - 15.2 %) 17.7 H Plt Count (129 - 368 K/MM3) 334 MPV (7.4 - 10.4 fl) 10.0 Neut % (Auto) (43 - 75 %) 67.8 Lymph % (Auto) (14 - 44 %) 19.0 [place] % (Auto) (4 - 13 %) 8.6 Eos % (Auto) (0 - 6 %) 3.6 Baso % (Auto) (0 - 2 %) 0.4 Neut # (Auto) (2.0 - 7.6 K/mm3) 7.98 H Lymph # (Auto) (1.0 - 3.8 K/mm3) 2.24 [place] # (Auto) (0.1 - 0.8 K/mm3) 1.01 H Eos # (Auto) (0.0 - 0.2 K/mm3) 0.42 H Baso # (Auto) (0.0 - 0.2 K/mm3) 0.05 Immature Gran % (0.0 - 2.0 %) 0.6 Nucleated RBC % (0 - 1.0 %) 0.0 Nucleated RBCs # (Man) (0.0 - 0.1 K/mm3) 0.00 Diagnosis, Assessment Plan Free Text A P: 1. 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 Acute on chronic systolic and diastolic heart failure -does not appear grossly volume overload and caitlyn athing well currently -would hold off on diuretic due to #1 for now 3. Type 2 DM with DM nephropathy -DM management per primary team 4. HTN -restart home meds except GURU/ARB due to #1 5. CAD s/p LHC and stenting -per cardiology 6. Hypothyroidism -management per primary team 7. Anemia of CKD -Iron sat 6% -start IV Iron series Electronically Signed by Carmita Alva MD on 09/07 at 0953 RPT #:[id number] END OF REPORT 2019-09-06 10:00:00-00:00 [facility] ([facility]) Hospitalist Progress Note REPORT#:[id number] REPORT STATUS: Signed DATE:09/06/19 TIME: 999 PATIENT: ZARIA MURRELL UNIT #: [id number] ROOM/BED: [address] : 42 AGE: 79 SEX: F ATTEND: Vani Smith MD ADM AUTHOR: Christy Taylor MD R1 * ALL edits or amendments must be made on the el [employer]/computer document * Subjective Chief Complaint: Dyspnea Free Text Subj Notes Free Subj Notes: 79 y/o F w/PMHx of HF, Aortic Stenosis, DM, HTN, Hyperlipidemia, COPD pancreatitis, she was admitted to the ICU for ca rdipulmonary arrest while havinga an heart catheterization procedu re. She was in a cardiac arrest for 11 min with ROSC. Patient was seen and examined at bedside no acut e events overnight. Patient reports feeling well and is up and ambulating. She reports moving her bowels but had not yet urinatied. Review of Systems Constitutional: Denies: chills, fever. Respiratory: Denies: WHITE (dyspnea on exertion), non productiv e cough, productive cough ( sputum), SOB. Cardiovascular: Denies: chest pain, palpitations. GI: Denies: abdominal pain, constipation, diarrhea, nausea, vomiting. Objective General VS/I O: Vital Signs: Date Time Temp Pulse Resp B/P B/P Pulse O2 O2 Flow FiO2 Mean Ox Delivery Rate 09/06 1602 98.2 94 18 128/77 94.1 93 09/06 1500 87 26 134/59 85 09/06 1431 76 38 131/60 86 09/06 1300 85 37 124/58 83 93 09/06 1207 135/60 87 09/06 1100 84 32 152/70 100 94 09/06 1030 99 45 93 09/06 1000 91 22 135/63 91 95 09/06 0930 90 16 127/59 85 91 10/14 0900 95 27 96/62 75 94 09/06 0830 91 30 132/59 85 93 14 0800 98.3 09/06 0800 Nasal 2 cannula 09/06 0800 89 32 139/65 93 92 09/06 0730 93 33 137/64 92 94 10/ 0700 89 30 150/64 92 94 09/06 0630 85 43 143/69 96 97 / 0627 96 Nasal 2.991418 28 cannula 09/06 0600 88 29 139/89 104 95 09/06 0530 82 16 141/63 90 95 09/06 0500 79 13 137/63 91 93 09/06 0430 80 14 132/60 87 92 09/06 0420 97.7 09/06 0400 80 28 125/72 94 94 09/06 0345 22 09/06 0330 82 18 139/64 92 93 09/06 0300 82 27 122/62 86 94 09/06 0230 79 29 130/59 85 91 09/06 0215 15 09/06 0213 98.7 09/06 0200 82 23 142/64 92 92 09/06 0130 77 27 124/56 80 93 09/06 0100 76 26 130/60 87 92 09/06 0026 15 09/06 0015 15 09/06 0006 98.0 09/06 0000 81 141/66 95 96 09/05 2345 28 09/05 2330 84 33 134/63 90 95 09/05 2300 89 33 132/73 94 92 09/05 2230 99 36 144/58 83 92 09/05 2200 91 33 138/62 89 97 09/05 2130 96 30 155/61 88 95 09/05 2115 28 09/05 2100 95 34 150/62 89 93 09/05 2030 102 37 132/60 86 93 09/05 2000 102 35 135/67 96 94 09/05 1945 96 20 91 09/05 194 Nasal 3.123599 cannula 09/05 1930 96 34 130/82 96 93 09/05 1923 98 30 162/70 100 94 09/05 1917 98.9 09/05 1900 99 26 94 09/05 1845 94 39 92 09/05 1835 95 Nasal 3.952652 32 cannula 09/05 1741 85 29 122/67 87 93 09/05 1647 84 25 144/65 89 94 24 hour I O ending at 0700: 09/06 0700 09/05 1900 Intake Total 720 Output Total 2200 Balance -1480 Intake, Oral 720 Output, Urine 2200 Patient 220 lb Weight Patient Weight Weight (lb): 220 Weight (oz): 7.4 Weight (kg): 99.79 Physical Exam General appearance: alert, awake, oriented, no a cute distress, pleasant, conversational, mental status normal, no respira tory distress Cardiovascular: murmur, normal capillary refill Murmur: diastolic 3/6 (systolic ejection murmur) Respiratory: aerating well, clear to auscultatio n, symmetric expansion, no distress Abdomen: non-tender, soft, no distention, no gua rding Neuro/PROCESS EXPERT: alert, oriented X 3, normal speech Psychiatry: normal affect, normal judgment/insig ht, normal mood, no hallucinations Diagnosis, Assessment Plan Free Text DxA P Notes Free Text DxA P Notes: 79 YO F w/ PMH of HF, Aortic Stenosis, DM, HTN, Hyperlipidemia, COPD Pancreatitis and PSH of Appendectomy, Ch olecystectomy, Left Knee Replacement C -Section is admitted to the ICU for Diuresis of Pulmonary Edema and Cardiopulmonary Arrest. The patient went into Ca rdiopulmonary arrest for 11 minutes and was succefully resusitated. Patient is intubated, awake and alert. ASSESSMENT 1. Cardiopulmonary Arrest w/ Sucessful Resusistation suspect to Cardiomyopathy 2 /2 Arrythmia vs. Acute on Chronic Systolic Heart Failure 2. Acute Hypoxic Respiratory Failure 3. DM 4. HTN 5. Hyperkalemia 6. Reactive Leukocytosis 7. Reactive Thrombocytosis 09/04 - Cardiopulmonary Arrest Continue Heart Cathetherization. EF of 20%. Consider ICD. Wait for Cardiology Inpt - Acute Hypoxic Respiratory Failure Intubation. Continue Diuretic Administration un til cleared for Extubation. Monitor Inspiratory - Flow Rate, RR and Tidal Vo lume - DM Mangage with Insulin Lispro SubQ 4 H Glargine 1 0 Units SubQ Before Bedtime - Hyperkalemia Continue Insulin. Continue Diuretics. Order BMP . Montor pH -HTN Hydralazine Q4 PRN 10mg - Thrombocytosis Leukocytosis Order CBC 09/05 - Cardiopulmonary Arrest Continue Heart Cathetherization. EF of 20%. Con librarian head External Defibrillator. Wait for Cardiology Inpt.Patient is extubated an d doing well. We will discuss with cardiology about the ex ternal defibrillator and resume GURU inhibitors when renal function is stabilized.. - Acute Hypoxic Respiratory Failure - Resolved Continue Diuretic Administration. - DM Mangage with Insulin Lispro SubQ 4 H Glargine 1 0 Units SubQ Before Bedtime - Hyperkalemia - Resolved Continue Insulin. Continue Diuretics. -HTN Hydralazine Q4 PRN 10mg - Leukocytosis - Resolved - Thromboyctosis Order CBC 09/06 - Cardiopulmonary Arrest Patient primary editorial assistant Dr. Conway follow ing along with Dr. Oropeza acute on chronic systolic heart failure LVEF 20 -40% 09/04/[address] D/c nitro patch. - Acute Hypoxic Respiratory Failure - Resolved Continue Diuretic Administration. - DM Mangage with Insulin Lispro SubQ 4 H Glargine 1 0 Units SubQ Before Bedtime - Hyperkalemia - Resolved Continue Insulin. Continue Diuretics. -HTN Hydralazine Q4 PRN 10mg agree with cardiology starting 25 mg Losartan - Leukocytosis - Resolved - Thromboyctosis Order CBC -CKD vs DINA d/t cardiac arrest will continue to trend BUN and creatinine. nephrology following -Hypothyroidsm continue home meds Quality Medications Current medication review: I attest that the foregoing medication list in t he medical record is true, accurate, and complete to the best of my knowled ge. Advanced Care Plan 65 or Older Discussed with: patient, other Discussion included: code status (full code) BMI Screening > 25 or < 18.5 BMI status/follow-up: abnl BMI, pt to F/U w/PCP Electronically Signed by Christy Taylor MD R1 on 1 at 1644 RPT #:[id number] END OF REPORT 2019-09-06 10:00:00-00:00 [facility] ([facility]) Hospitalist Progress Note REPORT#:[id number] REPORT STATUS: Signed DATE:09/06/19 TIME: 999 PATIENT: ZARIA MURRELL UNIT #: [id number] [facility] AGE: 79 SEX: F ATTEND: Vani Smith MD ADM AUTHOR: Christy Taylor MD R1 * ALL edits or amendments must be made on the [employer]/computer document * Subjective Chief Complaint: Dyspnea Free Text Subj Notes Free Subj Notes: 79 y/o F w/PMHx of HF, Aortic Stenosis, DM, HTN, Hyperlipidemia, COPD pancreatitis, she was admitted to the ICU for ca rdipulmonary arrest while havinga an heart catheterization procedu re. She was in a cardiac arrest for 11 min with ROSC. Patient was seen and examined at bedside no acut e events overnight. Patient reports feeling well and is up and ambulating. She reports moving her bowels but had not yet urinatied. Review of Systems Constitutional: Denies: chills, fever. Respiratory: Denies: WHITE (dyspnea on exertion), non productiv e cough, productive cough ( sputum), SOB. Cardiovascular: Denies: chest pain, palpitations. GI: Denies: abdominal pain, constipation, diarrhea, nausea, vomiting. Objective General VS/I O: Vital Signs: Date Time Temp Pulse Resp B/P B/P Pulse O2 O2 F low FiO2 Mean Ox Delivery Rate 09/06 1602 98.2 94 18 128/77 94.1 93 09/06 1500 87 26 134/59 85 09/06 1431 76 38 131/60 86 09/06 1300 85 37 124/58 83 93 09/06 1207 135/60 87 09/06 1100 84 32 152/70 100 94 09/06 1030 99 45 93 09/06 1000 91 22 135/63 91 95 09/06 0930 90 16 127/59 85 91 09/06 0900 95 27 96/62 75 94 09/06 0830 91 30 132/59 85 93 09/06 0800 98.3 09/06 0800 Nasal 2 cannula 09/06 0800 89 32 139/65 93 92 09/06 0730 93 33 137/64 92 94 09/06 0700 89 30 150/64 92 94 09/06 0630 85 43 143/69 96 97 09/06 0627 96 Nasal 2.116111 28 cannula 09/06 0600 88 29 139/89 104 95 09/06 0530 82 16 141/63 90 95 09/06 0500 79 13 137/63 91 93 09/06 0430 80 14 132/60 87 92 09/06 0420 97.7 09/06 0400 80 28 125/72 94 94 09/06 0345 22 09/06 0330 82 18 139/64 92 93 09/06 0300 82 27 122/62 86 94 09/06 0230 79 29 130/59 85 91 09/06 0215 15 09/06 0213 98.7 09/06 0200 82 23 142/64 92 92 09/06 0130 77 27 124/56 80 93 09/06 0100 76 26 130/60 87 92 09/06 0026 15 09/06 0015 15 09/06 0006 98.0 09/06 0000 81 141/66 95 96 09/05 2345 28 09/05 2330 84 33 134/63 90 95 09/05 2300 89 33 132/73 94 92 09/05 2230 99 36 144/58 83 92 09/05 2200 91 33 138/62 89 97 09/05 2130 96 30 155/61 88 95 09/05 2115 28 09/05 2100 95 34 150/62 89 93 09/05 2030 102 37 132/60 86 93 09/05 2000 102 35 135/67 96 94 09/05 1945 96 20 91 09/05 1941 Nasal 3.320320 cannula 09/05 1930 96 34 130/82 96 93 09/05 1923 98 30 162/70 100 94 09/05 1917 98.9 09/05 1900 99 26 94 09/05 1845 94 39 92 09/05 1835 95 Nasal 3.988221 32 cannula 09/05 1741 85 29 122/67 87 93 09/05 1647 84 25 144/65 89 94 24 hour I O ending at 0700: 09/06 0700 09/05 1900 Intake Total 720 Output Total 2200 Balance -1480 Intake, Oral 720 Output, Urine 2200 Patient 220 lb Weight Patient Weight Weight (lb): 220 Weight (oz): 7.4 Weight (kg): 99.79 Physical Exam General appearance: alert, awake, oriented, no a cute distress, pleasant, conversational, mental status normal, no respira tory distress Cardiovascular: murmur, normal capillary refill Murmur: diastolic 3/6 (systolic ejection murmur) Respiratory: aerating well, clear to auscultatio n, symmetric expansion, no distress Abdomen: non-tender, soft, no distention, no gua rding Neuro/PROCESS EXPERT: alert, oriented X 3, normal speech Psychiatry: normal affect, normal judgment/insig ht, normal mood, no hallucinations Diagnosis, Assessment Plan Free Text DxA P Notes Free Text DxA P Notes: 79 YO F w/ PMH of HF, Aortic Stenosis, DM, HTN, Hyperlipidemia, COPD Pancreatitis and PSH of Appendectomy, Ch olecystectomy, Left Knee Replacement C -Section is admitted to the ICU for Diuresis of Pulmonary Edema and Cardiopulmonary Arrest. The patient went into Ca rdiopulmonary arrest for 11 minutes and was succefully resusitated. Patient is intubated, awake and alert. ASSESSMENT 1. Cardiopulmonary Arrest w/ Sucessful Resusistation suspect to Cardiomyopathy 2 /2 Arrythmia vs. Acute on Chronic Systolic Heart Failure 2. Acute Hypoxic Respiratory Failure 3. DM 4. HTN 5. Hyperkalemia 6. Reactive Leukocytosis 7. Reactive Thrombocytosis 09/04 - Cardiopulmonary Arrest Continue Heart Cathetherization. EF of 20%. Consider ICD. Wait for Cardiology Inpt - Acute Hypoxic Respiratory Failure Intubation. Continue Diuretic Administration un til cleared for Extubation. Monitor Inspiratory - Flow Rate, RR and Tidal V olume - DM Mangage with Insulin Lispro SubQ 4 H Glargine 1 0 Units SubQ Before Bedtime - Hyperkalemia Continue Insulin. Continue Diuretics. Order BMP . Kareemor pH -HTN Hydralazine Q4 PRN 10mg - Thrombocytosis Leukocytosis Order CBC 09/05 - Cardiopulmonary Arrest Continue Heart Cathetherization. EF of 20%. Con librarian head External Defibrillator. Wait for Cardiology Inpt.Patient is extubated an d doing well. We will discuss with cardiology about the ex ternal defibrillator and resume GURU inhibitors when renal function is stabilized.. - Acute Hypoxic Respiratory Failure - Resolved Continue Diuretic Administration. - DM Mangage with Insulin Lispro SubQ 4 H Glargine 1 0 Units SubQ Before Bedtime - Hyperkalemia - Resolved Continue Insulin. Continue Diuretics. -HTN Hydralazine Q4 PRN 10mg - Leukocytosis - Resolved - Thromboyctosis Order CBC 09/06 - Cardiopulmonary Arrest Patient primary editorial assistant Dr. Conway follow ing along with Dr. Oropeza acute on chronic systolic heart failure LVEF 20 -40% 09/04/[address] D/c nitro patch. - Acute Hypoxic Respiratory Failure - Resolved Continue Diuretic Administration. - DM Mangage with Insulin Lispro SubQ 4 H Glargine 1 0 Units SubQ Before Bedtime - Hyperkalemia - Resolved Continue Insulin. Continue Diuretics. -HTN Hydralazine Q4 PRN 10mg agree with cardiology starting 25 mg Losartan - Leukocytosis - Resolved - Thromboyctosis Order CBC -CKD vs DINA d/t cardiac arrest will continue to trend BUN and creatinine. nephrology following -Hypothyroidsm continue home meds Quality Medications Current medication review: I attest that the foregoing medication list in t he medical record is true, accurate, and complete to the best of my knowled ge. Advanced Care Plan 65 or Older Discussed with: patient, other Discussion included: code status (full code) BMI Screening > 25 or < 18.5 BMI status/follow-up: abnl BMI, pt to F/U w/PCP Electronically Signed by Christy Taylor MD R1 on 1 at 1644 RPT #:[id number] END OF REPORT 2019-09-06 10:00:00-00:00 [facility] ([facility]) Hospitalist Progress Note REPORT#:[id number] REPORT STATUS: Signed DATE:09/06/19 TIME: 1000 PATIENT: ZARIA MURRELL UNIT #: [id number] ROOM/BED: [address] : 42 AGE: 79 SEX: F ATTEND: Vani Smith MD ADM AUTHOR: Christy Taylor MD R1 * ALL edits or amendments must be made on the el [employer]/computer document * Christy Taylor 09/06/19 1000: Subjective Chief Complaint: Dyspnea Free Text Subj Notes Free Subj Notes: 79 y/o F w/PMHx of HF, Aortic Stenosis, DM, HTN, Hyperlipidemia, COPD pancreatitis, she was admitted to the ICU for ca rdipulmonary arrest while havinga an heart catheterization procedu re. She was in a cardiac arrest for 11 min with ROSC. Patient was seen and examined at bedside no acut e events overnight. Patient reports feeling well and is up and ambulating. She reports moving her bowels but had not yet urinatied. Review of Systems Constitutional: Denies: chills, fever. Respiratory: Denies: WHITE (dyspnea on exertion), non productiv e cough, productive cough ( sputum), SOB. Cardiovascular: Denies: chest pain, palpitations. GI: Denies: abdominal pain, constipation, diarrhea, nausea, vomiting. Objective General VS/I O: Vital Signs: Date Time Temp Pulse Resp B/P B/P Pulse O2 O2 F low FiO2 Mean Ox Delivery Rate 09/06 1602 98.2 94 18 128/77 94.1 93 09/06 1500 87 26 134/59 85 09/06 1431 76 38 131/60 86 09/06 1300 85 37 124/58 83 93 09/06 1207 135/60 87 09/06 1100 84 32 152/70 100 94 09/06 1030 99 45 93 09/06 1000 91 22 135/63 91 95 09/06 0930 90 16 127/59 85 91 09/06 0900 95 27 96/62 75 94 09/06 0830 91 30 132/59 85 93 09/06 0800 98.3 09/06 0800 Nasal 2 cannula 09/06 0800 89 32 139/65 93 92 09/06 0730 93 33 137/64 92 94 09/06 0700 89 30 150/64 92 94 09/06 0630 85 43 143/69 96 97 09/06 0627 96 Nasal 2.372212 28 cannula 09/06 0600 88 29 139/89 104 95 09/06 0530 82 16 141/63 90 95 09/06 0500 79 13 137/63 91 93 09/06 0430 80 14 132/60 87 92 09/06 0420 97.7 09/06 0400 80 28 125/72 94 94 09/06 0345 22 09/06 0330 82 18 139/64 92 93 09/06 0300 82 27 122/62 86 94 09/06 0230 79 29 130/59 85 91 09/06 0215 15 09/06 0213 98.7 09/06 0200 82 23 142/64 92 92 09/06 0130 77 27 124/56 80 93 09/06 0100 76 26 130/60 87 92 09/06 0026 15 09/06 0015 15 09/06 0006 98.0 09/06 0000 81 141/66 95 96 09/05 2345 28 09/05 2330 84 33 134/63 90 95 09/05 2300 89 33 132/73 94 92 09/05 2230 99 36 144/58 83 92 09/050 91 33 138/62 89 97 09/05 2130 96 30 155/61 88 95 09/05 2115 28 09/05 2100 95 34 150/62 89 93 09/05 2030 102 37 132/60 86 93 09/05 2000 102 35 135/67 96 94 09/05 1945 96 20 91 09/05 194 Nasal 3.510861 cannula 09/05 1930 96 34 130/82 96 93 09/05 1923 98 30 162/70 100 94 09/05 191 98.9 09/05 1900 99 26 94 09/05 1845 94 39 92 09/05 1835 95 Nasal 3.475900 32 cannula 09/05 1741 85 29 122/67 87 93 09/05 1647 84 25 144/65 89 94 24 hour I O ending at 0700: 09/06 0700 09/05 1900 Intake Total 720 Output Total 2200 Balance -1480 Intake, Oral 720 Output, Urine 2200 Patient 220 lb Weight Patient Weight Weight (lb): 220 Weight (oz): 7.4 Weight (kg): 99.79 Physical Exam General appearance: alert, awake, oriented, no a cute distress, pleasant, conversational, mental status normal, no respira tory distress Cardiovascular: murmur, normal capillary refill Murmur: diastolic 3/6 (systolic ejection murmur) Respiratory: aerating well, clear to auscultatio n, symmetric expansion, no distress Abdomen: non-tender, soft, no distention, no gua rding Neuro/PROCESS EXPERT: alert, oriented X 3, normal speech Psychiatry: normal affect, normal judgment/insig ht, normal mood, no hallucinations Diagnosis, Assessment Plan Free Text DxA P Notes Free Text DxA P Notes: 79 YO F w/ PMH of HF, Aortic Stenosis, DM, HTN, Hyperlipidemia, COPD Pancreatitis and PSH of Appendectomy, Ch olecystectomy, Left Knee Replacement C -Section is admitted to the ICU for Diuresis of Pulmonary Edema and Cardiopulmonary Arrest. The patient went into Ca rdiopulmonary arrest for 11 minutes and was succefully resusitated. Patient is intubated, awake and alert. ASSESSMENT 1. Cardiopulmonary Arrest w/ Sucessful Resusistation suspect to Cardiomyopathy 2 /2 Arrythmia vs. Acute on Chronic Systolic Heart Failure 2. Acute Hypoxic Respiratory Failure 3. DM 4. HTN 5. Hyperkalemia 6. Reactive Leukocytosis 7. Reactive Thrombocytosis 09/04 - Cardiopulmonary Arrest Continue Heart Cathetherization. EF of 20%. Consider ICD. Wait for Cardiology Inpt - Acute Hypoxic Respiratory Failure Intubation. Continue Diuretic Administration un til cleared for Extubation. Monitor Inspiratory - Flow Rate, RR and Tidal Vo lume - DM Mangage with Insulin Lispro SubQ 4 H Glargine 1 0 Units SubQ Before Bedtime - Hyperkalemia Continue Insulin. Continue Diuretics. Order BMP . Kareemor pH -HTN Hydralazine Q4 PRN 10mg - Thrombocytosis Leukocytosis Order CBC 09/05 - Cardiopulmonary Arrest Continue Heart Cathetherization. EF of 20%. Con librarian head External Defibrillator. Wait for Cardiology Inpt.Patient is extubated an d doing well. We will discuss with cardiology about the ex ternal defibrillator and resume GURU inhibitors when renal function is stabilized.. - Acute Hypoxic Respiratory Failure - Resolved Continue Diuretic Administration. - DM Mangage with Insulin Lispro SubQ 4 H Glargine 1 0 Units SubQ Before Bedtime - Hyperkalemia - Resolved Continue Insulin. Continue Diuretics. -HTN Hydralazine Q4 PRN 10mg - Leukocytosis - Resolved - Thromboyctosis Order CBC 09/06 - Cardiopulmonary Arrest Patient primary editorial assistant Dr. Conway follow ing along with Dr. Oropeza acute on chronic systolic heart failure LVEF 20 -40% 09/04/[address] D/c nitro patch. - Acute Hypoxic Respiratory Failure - Resolved Continue Diuretic Administration. - DM Mangage with Insulin Lispro SubQ 4 H Glargine 1 0 Units SubQ Before Bedtime - Hyperkalemia - Resolved Continue Insulin. Continue Diuretics. -HTN Hydralazine Q4 PRN 10mg agree with cardiology starting 25 mg Losartan - Leukocytosis - Resolved - Thromboyctosis Order CBC -CKD vs DINA d/t cardiac arrest will continue to trend BUN and creatinine. nephrology following -Hypothyroidsm continue home meds Quality Medications Current medication review: I attest that the foregoing medication list in t he medical record is true, accurate, and complete to the best of my knowled ge. Advanced Care Plan 65 or Older Discussed with: patient, other Discussion included: code status (full code) BMI Screening > 25 or < 18.5 BMI status/follow-up: abnl BMI, pt to F/U w/PCP Karim,Nioti R 09/06/19 1847: Quality Advanced Care Plan 65 or Older Discussed with: patient Discussion included: code status Attestations Teaching Physician Attestation 1st visit w/ resident: I was present with the resident during the histo ry and exam. I discussed the case with the resident and . . . agree with the findings and plan as documented i n the resident's note. 79 y/o female agree with the findings and plan as documented i n the resident's note EXCEPT: Electronically Signed by Christy Taylor MD R1 on 1 at 1644 RPT #:[id number] END OF REPORT 2019-09-06 10:00:00-00:00 [facility] ([facility] Hospitalist Progress Note REPORT#:[id number] REPORT STATUS: Signed DATE:09/06/19 TIME: 1000 PATIENT: ZARIA MURRELL UNIT #: [id number] ROOM/BED: [address] : 42 AGE: 79 SEX: F ATTEND: Afshan Calderon MD ADM AUTHOR: Christy Taylor MD R1 * ALL edits or amendments must be made on the [employer]/computer document * Christy Taylor 09/06/19 1000: Subjective Chief Complaint: Dyspnea Free Text Subj Notes Free Subj Notes: 79 y/o F w/PMHx of HF, Aortic Stenosis, DM, HTN, Hyperlipidemia, COPD pancreatitis, she was admitted to the ICU for ca rdipulmonary arrest while havinga an heart catheterization procedu re. She was in a cardiac arrest for 11 min with ROSC. Patient was seen and examined at bedside no acut e events overnight. Patient reports feeling well and is up and ambulating. She reports moving her bowels but had not yet urinatied. Review of Systems Constitutional: Denies: chills, fever. Respiratory: Denies: WHITE (dyspnea on exertion), non productiv e cough, productive cough ( sputum), SOB. Cardiovascular: Denies: chest pain, palpitations. GI: Denies: abdominal pain, constipation, diarrhea, nausea, vomiting. Objective General VS/I O: Vital Signs: Date Time Temp Pulse Resp B/P B/P Pulse O2 O2 F low FiO2 Mean Ox Delivery Rate 09/06 1602 98.2 94 18 128/77 94.1 93 09/06 1500 87 26 134/59 85 09/06 1431 76 38 131/60 86 09/06 1300 85 37 124/58 83 93 09/06 1207 135/60 87 09/06 1100 84 32 152/70 100 94 09/06 1030 99 45 93 09/06 1000 91 22 135/63 91 95 09/06 0930 90 16 127/59 85 91 09/06 0900 95 27 96/62 75 94 09/06 0830 91 30 132/59 85 93 09/06 0800 98.3 09/06 0800 Nasal 2 cannula 09/06 0800 89 32 139/65 93 92 09/06 0730 93 33 137/64 92 94 09/06 0700 89 30 150/64 92 94 09/06 0630 85 43 143/69 96 97 09/06 0627 96 Nasal [id number] 28 cannula 09/06 0600 88 29 139/89 104 95 09/06 0530 82 16 141/63 90 95 09/06 0500 79 13 137/63 91 93 09/06 0430 80 14 132/60 87 92 09/06 0420 97.7 09/06 0400 80 28 125/72 94 94 09/06 0345 22 09/06 0330 82 18 139/64 92 93 09/06 0300 82 27 122/62 86 94 09/06 0230 79 29 130/59 85 91 09/06 0215 15 09/06 0213 98.7 09/06 0200 82 23 142/64 92 92 09/06 0130 77 27 124/56 80 93 09/06 0100 76 26 130/60 87 92 09/06 0026 15 09/06 0015 15 09/06 0006 98.0 09/06 0000 81 141/66 95 96 09/05 2345 28 09/05 2330 84 33 134/63 90 95 09/05 2300 89 33 132/73 94 92 09/05 2230 99 36 144/58 83 92 09/05 2200 91 33 138/62 89 97 09/05 2130 96 30 155/61 88 95 09/05 2115 28 09/05 2100 95 34 150/62 89 93 09/05 2030 102 37 132/60 86 93 09/05 2000 102 35 135/67 96 94 09/05 1945 96 20 91 09/05 1941 Nasal 3.375173 cannula 09/05 1930 96 34 130/82 96 93 09/05 192 98 30 162/70 100 94 09/05 1917 98.9 09/05 1900 99 26 94 09/05 1845 94 39 92 09/05 1835 95 Nasal 3.682018 32 cannula 09/05 1741 85 29 122/67 87 93 09/05 1647 84 25 144/65 89 94 24 hour I O ending at 0700: 09/06 0700 09/05 190 Intake Total 720 Output Total 2200 Balance -1480 Intake, Oral 720 Output, Urine 2200 Patient 220 lb Weight Patient Weight Weight (lb): 220 Weight (oz): 7.4 Weight (kg): 99.79 Physical Exam General appearance: alert, awake, oriented, no a cute distress, pleasant, conversational, mental status normal, no respira tory distress Cardiovascular: murmur, normal capillary refill Murmur: diastolic 3/6 (systolic ejection murmur) Respiratory: aerating well, clear to auscultatio n, symmetric expansion, no distress Abdomen: non-tender, soft, no distention, no gua rding Neuro/PROCESS EXPERT: alert, oriented X 3, normal speech Psychiatry: normal affect, normal judgment/insig ht, normal mood, no hallucinations Diagnosis, Assessment Plan Free Text DxA P Notes Free Text DxA P Notes: 79 YO F w/ PMH of HF, Aortic Stenosis, DM, HTN, Hyperlipidemia, COPD Pancreatitis and PSH of Appendectomy, Ch olecystectomy, Left Knee Replacement C -Section is admitted to the ICU for Diuresis of Pulmonary Edema and Cardiopulmonary Arrest. The patient went into Ca rdiopulmonary arrest for 11 minutes and was succefully resusitated. Patient is intubated, awake and alert. ASSESSMENT 1. Cardiopulmonary Arrest w/ Sucessful Resusistation suspect to Cardiomyopathy 2 /2 Arrythmia vs. Acute on Chronic Systolic Heart Failure 2. Acute Hypoxic Respiratory Failure 3. DM 4. HTN 5. Hyperkalemia 6. Reactive Leukocytosis 7. Reactive Thrombocytosis 09/04 - Cardiopulmonary Arrest Continue Heart Cathetherization. EF of 20%. Consider ICD. Wait for Cardiology Inpt - Acute Hypoxic Respiratory Failure Intubation. Continue Diuretic Administration un til cleared for Extubation. Monitor Inspiratory - Flow Rate, RR and Tidal Vo lume - DM Mangage with Insulin Lispro SubQ 4 H Glargine 1 0 Units SubQ Before Bedtime - Hyperkalemia Continue Insulin. Continue Diuretics. Order BMP . Ree pH -HTN Hydralazine Q4 PRN 10mg - Thrombocytosis Leukocytosis Order CBC 09/05 - Cardiopulmonary Arrest Continue Heart Cathetherization. EF of 20%. Con librarian head External Defibrillator. Wait for Cardiology Inpt.Patient is extubated an d doing well. We will discuss with cardiology about the ex ternal defibrillator and resume GURU inhibitors when renal function is stabilized.. - Acute Hypoxic Respiratory Failure - Resolved Continue Diuretic Administration. - DM Mangage with Insulin Lispro SubQ 4 H Glargine 1 0 Units SubQ Before Bedtime - Hyperkalemia - Resolved Continue Insulin. Continue Diuretics. -HTN Hydralazine Q4 PRN 10mg - Leukocytosis - Resolved - Thromboyctosis Order CBC 09/06 - Cardiopulmonary Arrest Patient primary editorial assistant Dr. Conway follow ing along with Dr. Oropeza acute on chronic systolic heart failure LVEF 20 -40% 09/04/[address] D/c nitro patch. - Acute Hypoxic Respiratory Failure - Resolved Continue Diuretic Administration. - DM Mangage with Insulin Lispro SubQ 4 H Glargine 1 0 Units SubQ Before Bedtime - Hyperkalemia - Resolved Continue Insulin. Continue Diuretics. -HTN Hydralazine Q4 PRN 10mg agree with cardiology starting 25 mg Losartan - Leukocytosis - Resolved - Thromboyctosis Order CBC -CKD vs DINA d/t cardiac arrest will continue to trend BUN and creatinine. nephrology following -Hypothyroidsm continue home meds Quality Medications Current medication review: I attest that the foregoing medication list in t he medical record is true, accurate, and complete to the best of my knowled ge. Advanced Care Plan 65 or Older Discussed with: patient, other Discussion included: code status (full code) BMI Screening > 25 or < 18.5 BMI status/follow-up: abnl BMI, pt to F/U w/PCP Afshan Calderon 09/06/19 0977: Quality Advanced Care Plan 65 or Older Discussed with: patient Discussion included: code status Attestations Teaching Physician Attestation 1st visit w/ resident: I was present with the resident during the histo ry and exam. I discussed the case with the resident and . . . agree with the findings and plan as documented i n the resident's note. 79 y/o female agree with the findings and plan as documented i n the resident's note EXCEPT: Electronically Signed by Christy Taylor MD R1 on 1 at 1644 Electronically Signed by Afshan Calderon MD on at 1728 RPT #:[id number] END OF REPORT 2019-09-06 06:06:00-00:00 [id number] [place] [address] PATIENT NAME: ZARIA MURRELL ADMIT DATE: 9 ACCOUNT NO: [id number] ROOM NO: Z.[id number] AGE: 79 REPORT TYPE: ELECTROCARDIOGRAM SEX: F ADMITTING PHYSICIAN:Vani Smith MD ATTENDING PHYSICIAN:Vani Smith MD Order: [id number] Test Reason : CAD Test Date/Time Stamp: FriSep 06 2019 06:06:34 Blood Pressure : / mmHG Vent. Rate : 085 BPM Atrial Rate : 085 BPM P-R Int : 150 ms QRS Dur : 082 ms QT Int : 352 ms P-R-T Axes : 062 004 140 degree s QTc Int : 418 ms Normal sinus rhythm ST and T wave abnormality, consider lateral isch emia Abnormal ECG When compared with ECG of 05-SEP-2019 07:52, T wave inversion less evident in Anterolateral l ismael QT has shortened Confirmed by AMOS CONWAY ([id number]) on 09/06/2019 7:12:53 AM Referred By: Vani Smith Confirmed by:AMOS OCONNOR at 0713 PATIENT NAME: ZARIA MURRELL 6825 2019-09-06 05:23:00-00:00 [facility] ([facility]) Cardiology Progress Note REPORT#:[id number] REPORT STATUS: Signed DATE:09/06/19 TIME: 522 PATIENT: ZARIA MURRELL UNIT #: [id number] ROOM/BED: [address] : [address] AGE: 79 SEX: F ATTEND: Vani Smith MD ADM AUTHOR: Matteo Oropeza MD * ALL edits or amendments must be made on the [employer]/computer document * Subjective Chief Complaint: Dyspnea Patient reports: No: chest pain, palpitations, shortness of breat h. Objective General VS/I O: 24 hour I O ending at 0700: 09/06 0700 09/05 1900 Intake Total 600 Output Total 900 Balance -300 Intake, Oral 600 Output, Urine 900 Patient 99.79 kg Weight Vital Signs: Date Time Temp Pulse Resp B/P B/P Pulse O2 O2 F low FiO2 Mean Ox Delivery Rate 09/06 0430 80 14 132/60 87 92 09/06 0420 97.7 09/06 0400 80 28 125/72 94 94 09/06 0345 22 09/06 0330 82 18 139/64 92 93 09/06 0300 82 27 122/62 86 94 09/06 0230 79 29 130/59 85 91 09/06 0215 15 09/06 0213 98.7 09/06 0200 82 23 142/64 92 92 09/06 0130 77 27 124/56 80 93 09/06 0100 76 26 130/60 87 92 09/06 0026 15 09/06 0015 15 09/06 0006 98.0 09/06 0000 81 141/66 95 96 09/05 2345 28 09/05 2330 84 33 134/63 90 95 09/05 2300 89 33 132/73 94 92 09/05 2230 99 36 144/58 83 92 09/05 2200 91 33 138/62 89 97 09/05 2130 96 30 155/61 88 95 09/05 2115 28 09/05 2100 95 34 150/62 89 93 09/05 2030 102 37 132/60 86 93 09/05 2000 102 35 135/67 96 94 09/05 194 96 20 91 09/05 194 Nasal 3.041215 cannula 09/05 1930 96 34 130/82 96 93 09/05 1923 98 30 162/70 100 94 09/05 1917 98.9 09/05 1900 99 26 94 09/05 1845 94 39 92 09/05 1835 95 Nasal 3.698635 32 cannula 09/05 1741 85 29 122/67 87 93 09/05 1647 84 25 144/65 89 94 09/05 1617 89 39 133/60 86 94 09/05 1547 87 27 146/66 95 95 09/05 1517 92 56 114/58 80 96 09/05 1447 87 33 129/60 86 94 09/05 1417 86 35 131/77 98 94 09/05 1400 84 39 140/65 94 94 09/05 1345 82 35 138/64 92 94 09/05 1228 77 26 122/61 86 94 09/05 1145 82 27 139/96 113 92 09/05 1115 82 34 94 09/05 1100 81 32 134/60 87 94 09/05 1045 81 14 148/65 93 97 09/05 1030 85 28 164/67 97 93 09/05 1015 91 31 184/68 98 94 09/05 1000 96 20 156/67 97 93 09/05 0945 97 16 137/62 89 93 09/05 0930 97 26 143/58 82 93 09/05 0915 93 27 143/61 88 92 09/05 0900 93 30 164/70 101 93 09/05 0845 90 35 150/79 105 92 09/05 0830 87 42 141/68 96 93 09/05 0815 85 28 156/74 107 93 09/05 0800 98.0 09/05 0800 90 34 165/78 112 93 09/05 0747 Nasal 3.888380 cannula 09/05 0745 88 33 154/72 104 91 09/05 0730 86 35 149/81 109 91 09/05 0715 88 38 144/70 93 92 09/05 0700 81 32 151/70 101 93 09/05 0700 94 Nasal 4.592898 cannula 09/05 0645 80 20 132/71 96 93 09/05 0630 78 26 131/65 90 97 09/05 0615 76 26 133/69 95 96 09/05 0600 76 25 125/63 89 96 09/05 0559 25 10 0545 76 124/64 87 96 09/05 0530 81 23 132/68 94 93 Patient Weight Weight (lb): 220 Weight (oz): 7.4 Weight (kg): 99.79 Medications: Active Meds + DC'd Last 24 Hrs Aspirin 81 MG DAILY PO Furosemide 40 MG DAILY PO (CAN) Latanoprost 1 DROP DAILY EACH EYE Potassium Chloride 10 MEQ DAILY PO Thyroid 105 MG DAILY PO Atorvastatin Calcium 20 MG BEDTIME PO Insulin Human Lispro HIGH DOSE SLIDING SCALE Q4H SUBQ Enoxaparin Sodium 40 MG Q24H SUBQ Magnesium Sulfate/Dextrose 100 ML ONCE ONE IV (D C) Metoprolol Tartrate 25 MG Q12HR PO Potassium Chloride 20 MEQ ONCE ONE PO (DC) Atorvastatin Calcium 5 MG BEDTIME PO (DC) Acetaminophen 500 MG Q6H PRN PRN PO Albuterol/Ipratropium 3 ML RTQ4H INH Insulin Glargine 10 UNITS BEDTIME SUBQ Furosemide 40 MG BID@0900,1700 IV (DC) Mupirocin 1 APPLIC BID NASAL Insulin Human Lispro HIGH DOSE SLIDING SCALE Q4H SUBQ (DC) Aspirin 325 MG DAILY PO (DC) Hydralazine HCl 10 MG Q4H PRN PRN IV Nitroglycerin 1 INCH Q6HR TRANSDERM Dextrose/Water 12.5 GM ASDIR PRN IV Dextrose/Water 25 GM ASDIR PRN IV Physical Exam General appearance: alert, awake, oriented, no a cute distress Head/Eyes: atraumatic, normocephalic ENT: moist mucosal membranes Neck: no JVD Cardiovascular: CV assessment: regular rate and rhythm Respiratory: clear to auscultation, no distress Abdomen: soft, non-tender Upper extremity: UE assessment: no edema Lower extremity: LE assessment: no edema Musculoskeletal: full range of motion Neuro/PROCESS EXPERT: alert, oriented X 3, CN II-XII intact Skin: dry, intact Psychiatry: normal affect, normal judgment/insig ht, normal mood Results Findings/Data: Laboratory Tests 09/06 09/05 09/05 09/05 0148 2130 0635 0635 Chemistry Sodium (137 - 145 MMOL/L) 139 Potassium (3.5 - 5.1 MMOL/L) 3.5 Chloride (98 - 107 MMOL/L) 98 Carbon Dioxide (22 - 30 MMOL/L) 32 H Anion Gap (14 - 24 MMOL/L) 13 L BUN (7 - 17 MG/DL) 29 H Creatinine (0.52 - 1.04 MG/DL) 1.30 H Glomerular Filtr Rate 40 Glucose (74 - 106 MG/DL) 162 H POC Glucose (60 - 99 MG/DL) 122 H 264 H Lactic Acid (0.7 - 2.1 MMOL/L) 1.7 Calcium (8.4 - 10.2 MG/DL) 8.9 Phosphorus (2.5 - 4.5 MG/DL) 4.4 Magnesium (1.6 - 2.3 MG/DL) 1.7 Total Bilirubin (0.2 - 1.3 MG/DL) 0.4 AST (14 - 36 UNITS/L) 37 H ALT (9 - 52 UNITS/L) 64 H Total Alk Phosphatase (38 - 126 UNITS/L) 84 Total Protein (6.3 - 8.2 G/DL) 6.7 Albumin (3.5 - 5.0 G/DL) 3.7 Laboratory Tests 09/05 0635 Hematology WBC (3.8 - 9.8 K/MM3) 12.8 H RBC (3.58 - 4.97 M/MM3) 4.23 Hgb (11.2 - 14.9 G/DL) 10.3 L Hct (33.2 - 43.5 %) 33.8 MCV (80.7 - 99.1 fL) 80 L MCH (27.0 - 34.1 pg) 24.3 L MCHC (32.2 - 35.7 %) 30.5 L RDW (12.1 - 15.2 %) 18.1 H Plt Count (129 - 368 K/MM3) 350 MPV (7.4 - 10.4 fl) 10.4 Neut % (Auto) (43 - 75 %) 71.7 Lymph % (Auto) (14 - 44 %) 16.7 [place] % (Auto) (4 - 13 %) 9.2 Eos % (Auto) (0 - 6 %) 1.2 Baso % (Auto) (0 - 2 %) 0.3 Neut # (Auto) (2.0 - 7.6 K/mm3) 9.17 H Lymph # (Auto) (1.0 - 3.8 K/mm3) 2.13 [place] # (Auto) (0.1 - 0.8 K/mm3) 1.17 H Eos # (Auto) (0.0 - 0.2 K/mm3) 0.15 Baso # (Auto) (0.0 - 0.2 K/mm3) 0.04 Immature Gran % (0.0 - 2.0 %) 0.9 Nucleated RBC % (0 - 1.0 %) 0.0 Nucleated RBCs # (Man) (0.0 - 0.1 K/mm3) 0.00 Laboratory Tests 09/05 0635 Chemistry Magnesium (1.6 - 2.3 MG/DL) 1.7 Diagnosis, Assessment Plan Free Text DxA P Notes Free Text DxA P Notes: IMP: Acute on chronic systolic heart failure LVEF 20-24% by echo 09/04/19 s/p cardiopulmonary arrest Moderate CAD PLAN: Continue diuresis with IV lasix Add ARB at 0832 RPT #:[id number] END OF REPORT 2019-09-05 16:29:00-00:00 [facility] ([facility]) History Physical - Adult REPORT#:[id number] REPORT STATUS: Signed DATE:09/05/19 TIME: 1629 PATIENT: ZARIA MURRELL UNIT #: [id number] ROOM/BED: [address] : 42 AGE: 79 SEX: F ATTEND: Vani Smith MD ADM AUTHOR: Vani Smith MD * ALL edits or amendments must be made on the [employer]/computer document * History of Present Illness HPI Chief complaint: date of service 09/04/19 Free Text HPI Notes Free Text HPI Notes: Subjective Free Text Subj Notes Free Subj Notes: 79 YO F w/ PMH of HF, Aortic Stenosis, DM, HTN, Hyperlipidemia, COPD is admitted to the ICU for Diur esis of Pulmonary Edema and Cardiopulmonary Arrest. The patient initally came in for Heart C athetherization for an LAD lesion when she experienced SOB. The patient was the n placed on Oxygen but still went into Cardiopulmonary arrest for 1 1 minutes and was succefully resusitated. Patient is intubated, awake and alert. Initial Physical Exa m was unable to be conducted. Review of Systems Unable to obtain due to: Patient Intubated Objective Physical Exam General appearance: respiratory support, alert, awake Cardiovascular: tachycardia Respiratory: dyspneic Extremities: no calf tenderness, no cyanosis Results Findings/Data: Laboratory Tests 09/04 09/04 09/04 09/04 1000 0907 0902 0746 Blood Gas Puncture Site RB R Brachial O2 Saturation (92.0 - 98.5 %) 94 ABG pH (7.35 - 7.45 mmHg) 7.32 L 7.286 L 7.257 L 7.156 *L ABG pCO2 (35.0 - 45.0 mmHg) 42.6 48.7 H 52.7 H 55.0 *H ABG pO2 (80.0 - 100.0 mmol/L) 119.4 H 82 36 *L 91 ABG HCO3 (20.0 - 26.0 mmol/L) 21.6 23.2 H 23.5 H 19.4 L ABG O2 Saturation (95.0 - 100.0 %) 98.1 94 L 58 *L ABG Base Excess (-3.0 - 3.0 mmol/L) -4.3 L -3 - 4 -9.0 L Reymundo Test (CHECK) NA N/A Ionized Calcium (1.12 - 1.24 MMOL/L) 1.11 L 1.1 4 Temperature (37 C) 37.0 O2 Delivery Device VENT Vent Vent Mode A/C CMV Vent Rate (/MIN) 20.0 16 FiO2 (%) 100 100 Tidal Volume (ml) 400 400 PEEP (cmH2O) 10.0 10 Laboratory Tests 09/04 09/04 09/04 09/04 1127 1127 1127 0907 Chemistry POC Sodium (137 - 144 MMOL/L) 137 Sodium (137 - 145 MMOL/L) 137 POC Potassium (3.1 - 4.8 MMOL/L) 5.3 H Potassium (3.5 - 5.1 MMOL/L) 5.3 H Chloride (98 - 107 MMOL/L) 100 Carbon Dioxide (22 - 30 MMOL/L) 24 Anion Gap (14 - 24 MMOL/L) 18 BUN (7 - 17 MG/DL) 26 H Creatinine (0.52 - 1.04 MG/DL) 1.30 H Glomerular Filtr Rate 40 Glucose (74 - 106 MG/DL) 462 *H POC Glucose (60 - 99 MG/DL) 474 *H Mean Blood Glucose (70 - 110 MG/DL) 252 H Hemoglobin A1c (4.8 - 5.9 %) 10.4 H Lactic Acid (0.7 - 2.1 MMOL/L) 2.4 H Calcium (8.4 - 10.2 MG/DL) 9.1 Phosphorus (2.5 - 4.5 MG/DL) 4.9 H Magnesium (1.6 - 2.3 MG/DL) 1.9 Total Bilirubin (0.2 - 1.3 MG/DL) 0.4 AST (14 - 36 UNITS/L) 78 H ALT (9 - 52 UNITS/L) 92 H Total Alk Phosphatase (38 - 126 UNITS/L) 106 Troponin I (0.012 - 0.033 NG/ML) 0.179 *H Total Protein (6.3 - 8.2 G/DL) 7.7 Albumin (3.5 - 5.0 G/DL) 4.4 LDL Cholesterol (100 - 129 mg/dL) 112 Procalcitonin (NG/ML) < 0.05 09/04 09/04 09/04 0902 0746 0620 Chemistry POC Sodium (137 - 144 MMOL/L) 136 L Sodium (137 - 145 MMOL/L) 138 POC Potassium (3.1 - 4.8 MMOL/L) 5.4 H Potassium (3.5 - 5.1 MMOL/L) 4.5 Chloride (98 - 107 MMOL/L) 103 Carbon Dioxide (22 - 30 MMOL/L) 25 Anion Gap (14 - 24 MMOL/L) 15 BUN (7 - 17 MG/DL) 24 H Creatinine (0.52 - 1.04 MG/DL) 1.10 H Glomerular Filtr Rate 48 Glucose (74 - 106 MG/DL) 293 H POC Glucose (60 - 99 MG/DL) 451 *H POC Lactic Acid (0.4 - 2.0 MMOL/L) 4.60 *H Calcium (8.4 - 10.2 MG/DL) 9.4 Magnesium (1.6 - 2.3 MG/DL) 1.7 Triglycerides (MG/DL) 167 Cholesterol (<200 MG/DL) 195 LDL Cholesterol [place] (0 - 99 MG/DL) 109 H HDL Cholesterol (40 - 59 MG/DL) 61 H Laboratory Tests 09/04 09/04 1127 0620 Coagulation INR (0.8 - 1.1) 1.0 1.0 APTT (22.0 - 33.0 SECONDS) 24.1 25.3 PT Patient/Control Mix (9.6 - 11.6 SECONDS) 10. 8 10.7 Fibrinogen (185 - 512 MG/DL) 359 D-Dimer (0 - 0.49 MG/L FEU) 3.76 H Laboratory Tests 09/04 09/04 09/04 1127 1127 0620 Hematology WBC (3.8 - 9.8 K/MM3) 18.3 H 11.4 H RBC (3.58 - 4.97 M/MM3) 4.49 4.47 Hgb (11.2 - 14.9 G/DL) 10.9 L 10.8 L Hct (33.2 - 43.5 %) 36.2 35.9 MCV (80.7 - 99.1 fL) 81 80 L MCH (27.0 - 34.1 pg) 24.3 L 24.2 L MCHC (32.2 - 35.7 %) 30.1 L 30.1 L RDW (12.1 - 15.2 %) 17.9 H 18.1 H Plt Count (129 - 368 K/MM3) 426 H 411 H 405 H MPV (7.4 - 10.4 fl) 10.0 9.7 Neut % (Auto) (43 - 75 %) 88.1 H 76.8 H Lymph % (Auto) (14 - 44 %) 3.9 L 11.2 L [place] % (Auto) (4 - 13 %) 6.0 6.9 Eos % (Auto) (0 - 6 %) 0.2 3.9 Baso % (Auto) (0 - 2 %) 0.3 0.4 Neut # (Auto) (2.0 - 7.6 K/mm3) 16.12 H 8.76 H Lymph # (Auto) (1.0 - 3.8 K/mm3) 0.71 L 1.28 [place] # (Auto) (0.1 - 0.8 K/mm3) 1.10 H 0.79 Eos # (Auto) (0.0 - 0.2 K/mm3) 0.03 0.45 H Baso # (Auto) (0.0 - 0.2 K/mm3) 0.06 0.05 Immature Gran % (0.0 - 2.0 %) 1.5 0.8 Nucleated RBC % (0 - 1.0 %) 0.0 0.0 Nucleated RBCs # (Man) (0.0 - 0.1 K/mm3) 0.00 0 .00 Laboratory Tests 09/04 1300 Urines Urine Color (YELLOW) YELLOW Urine Appearance (CLEAR) CLEAR Urine pH (5.0 - 9.0) 5.0 Ur Specific [place] (1.003 - 1.030) 1.010 Urine Protein (NEGATIVE MG/DL) NEGATIVE Urine Glucose (UA) (NORMAL MG/DL) 1000 H Urine Ketones (NEGATIVE MG/DL) NEGATIVE Urine Blood (NEGATIVE [place]/mm3) 25 H Urine Nitrite (NEGATIVE) NEGATIVE Urine Bilirubin (NEGATIVE MG/DL) NEGATIVE Urine Urobilinogen (NORMAL MG/DL) NORMAL Ur Leukocyte Esterase (NEGATIVE /mm3) NEGATIVE Urine RBC (0 - 3 RBC/HPF) 5-10 H Urine WBC (0 - 5 WBC/HPF) 3-5 Ur Epithelial Cells (FEW EPI/HPF) RARE Urine Bacteria (NONE) FEW Urine Mucus (NONE #/LPF) SLIGHT Urine Culture Screen (Culture Chk Criteria) NO, WBC<10 Radiology data: Recent Impressions: RADIOLOGY - XR CHEST 1V 09/04 0709 Report Impression - Status: SIGNED Entered: 09/04/2019 0833 IMPRESSION: Bilateral hazy diffuse airspace opacity, right g reater than left, may represent asymmetric pulmonary edema. Recommend continued follow-up. Impression By: JamarANSGuero Guzman Diagnosis, Assessment Plan Orders: Procedure Date/time Status O2 60MIN 09/04 1617 Active NEPHROLOGY CONSULT 09/04 1324 Active CARDIOLOGY CONSULT 09/04 1324 Active Free Text DxA P Notes Free Text DxA P Notes: 79 YO F w/ PMH of HF, Aortic Stenosis, DM, HTN, Hyperlipidemia, COPD is admitted to the ICU for Diur esis of Pulmonary Edema and Cardiopulmonary Arrest. The patient went into Cardiopulmonary ar rest for 11 minutes and was succefully resusitated. Patient is intubated, awake and randy rt. ASSESSMENT 1. Cardiopulmonary Arrest w/ Sucessful Resusistation suspect to Cardiomyopathy 2 /2 Arrythmia vs. Acute on Chronic Systolic Heart Failure 2. Acute Hypoxic Respiratory Failure 3. DM 4. HTN 5. Hyperkalemia 6. Reactive Leukocytosis 7. Reactive Thrombocytosis 09/04 - Cardiopulmonary Arrest Continue Heart Cathetherization. EF of 20%. Consider ICD. Wait for Cardiology Inpt - Acute Hypoxic Respiratory Failure Intubation. Continue Diuretic Administration un til cleared for Extubation. Monitor Inspiratory - Flow Rate, RR and Tidal Vo lume - DM Mangage with Insulin Lispro SubQ 4 H Glargine 1 0 Units SubQ Before Bedtime - Hyperkalemia Continue Insulin. Continue Diuretics. Order OMAR Keenan pH -HTN Hydralazine Q4 PRN 10mg - Thrombocytosis Leukocytosis Order CBC Quality Medications Current medication review: I attest that the foregoing medication list in t he medical record is true, accurate, and complete to the best of my knowled ge. Heart Failure:DC on BB,GURU/ARB LVEF: < 40% Beta hermann Rx at DC: yes; medication: ACEI/ARB Rx at DC: yes; medication: History Past medical history: Reports: Congestive heart failure, Coron robyn artery disease, Diabetes mellitus, Hypertension, Kidney disease/stones. Smoking status for patients 13 years old or olde r: Never Smoker Medication/Allergy-Vaccine Hx Home Medications: ASPIRIN 81 MG PO DAILY CELECOXIB (CeleBREX) 200 MG PO DAILY FLUTICASONE FUROATE/VILANTEROL 200/25 MCG/ACT (B REO ELLIPTA 200/25 MCG/ACT) 1 PUFF INH RTDAILY FUROSEMIDE (LASIX) 40 MG PO DAILY GLIMEPIRIDE (AMARYL) 1 MG PO DAILY LATANOPROST (XALATAN 0.005% OPHTH SOLN) LOSARTAN (COZAAR) 100 MG PO DAILY metFORMIN (GLUCOPHAGE) OMEPRAZOLE ER (PriLOSEC) 40 MG PO DAILY POTASSIUM CHLORIDE ER (KLOR-CON 10) 10 MEQ PO DA NETTIE PRAVASTATIN (PRAVACHOL) 20 MG PO DAILY SPIRONOLACTONE (ALDACTONE) 50 MG PO DAILY [thyroid] 90 MG DAILY Allergies: Coded Allergies: No Known Drug Allergies (09/04/19) Uncoded Allergies: No Known Contrast Allergies (05/12/09) No Known Drug Allergies (05/12/09) No Known Food Allergies (05/12/09) No Known Other Allergies (05/12/09) Quality Medications Current medication review: I attest that the foregoing medication list in [facility] record is true, accurate, and complete to the best of my knowled ge. Advanced Care Plan 65 or Older Discussed with: patient Discussion included: code status BMI Screening > 25 or < 18.5 BMI status/follow-up: abnl BMI, pt to F/U w/PCP Electronically Signed by Vani Smith MD on 08/24 02/09 at 1630 [facility] #:[id number] END OF REPORT 2019-09-05 16:27:00-00:00 [facility] ([facility]) Hospitalist Progress Note REPORT#:[id number] REPORT STATUS: Signed DATE:09/05/19 TIME: 1627 PATIENT: ZARIA MURRELL UNIT #: [id number] ROOM/BED: [address] : 42 AGE: 79 SEX: F ATTEND: Vani Smith MD ADM AUTHOR: Vani Smith MD * ALL edits or amendments must be made on the [employer]/computer document * Subjective Chief Complaint: Dyspnea Free Text Subj Notes Free Subj Notes: 79 YO F w/ PMH of HF, Aortic Stenosis, DM, HTN, Hyperlipidemia, COPD Pancreatitis and PSH of Appendectomy, Ch olecystectomy, Left Knee Replacement C -Section is admitted to the ICU for Diuresis of Pulmonary Edema and Cardiopulmonary Arrest. Pt reports driving [facility] for Heart Catheterization Procedure and presented with Dyspnea upon reaching to the hospital. The patient went into Cardiopulmonary ar rest for 11 minutes and was succefully resusitated. Patient is awake, alert and extubated. Pt report s headache and SOB. Patient denies Chest Pain, Fever, Chills, NVD. Review of Systems Constitutional: Denies: chills, fatigue, fever. Skin: Reports: bruising (IV Site - Right Wrist). ENT: Denies: hearing loss, mouth pain, sinus problem. Respiratory: Reports: SOB. Cardiovascular: Reports: chest pain (due to Compression). Denies : edema, orthopnea, parox nocturnal dyspnea. GI: Reports: abdominal pain (Pancreatitis). Denies: constipation, diarrhea, GERD, nausea, vomiting. : Denies: frequency, pelvic pain, urgency. Musculoskeletal: Reports: joint pain (Left Knee). Denies: extremi ty pain, extremity swelling, joint swelling. Neuro: Reports: headache. All systems rev neg: except as marked Objective General VS/I O: Vital Signs: Date Time Temp Pulse Resp B/P B/P Pulse O2 O2 F low FiO2 Mean Ox Delivery Rate 09/05 0800 98.0 09/05 0747 Nasal 3.478835 cannula 09/05 0700 94 Nasal 4.305024 cannula 09/05 0615 76 26 133/69 95 96 09/05 0600 76 25 125/63 89 96 09/05 0559 25 09/05 0545 76 124/64 87 96 09/05 0530 81 23 132/68 94 93 09/05 0515 88 44 127/58 83 95 09/05 0500 82 27 136/58 84 96 09/05 0445 85 27 131/60 87 96 09/05 0430 81 26 124/56 81 96 09/05 0429 97.4 09/05 0415 80 27 127/57 84 94 09/05 0400 82 31 133/63 90 93 09/05 0345 89 47 132/62 88 90 09/05 0330 82 18 113/56 80 92 09/05 0315 87 36 154/67 96 91 09/05 0300 93 41 137/71 98 92 09/05 0245 83 27 123/63 87 94 09/05 0230 83 26 121/60 84 94 09/05 0215 82 20 117/61 84 99 09/05 0200 82 19 122/63 87 94 09/05 0145 83 15 133/63 89 96 09/05 0130 84 35 125/61 88 91 09/05 0115 89 20 128/61 88 89 09/05 0100 85 26 131/68 93 92 09/05 0045 85 16 124/84 98 93 09/05 0030 84 29 135/67 94 92 09/05 0015 84 26 137/60 86 92 09/05 0000 97.2 09/05 0000 84 15 125/65 89 92 09/04 2345 87 28 123/63 87 94 09/04 2330 86 33 129/73 94 93 09/04 2315 87 30 127/71 93 92 09/04 2300 91 33 121/66 90 92 09/04 2245 91 38 130/63 88 91 09/04 2230 91 49 118/59 83 89 09/04 2215 87 31 119/59 82 92 09/04 2200 85 32 122/65 87 92 09/04 2145 85 30 120/67 86 92 09/04 2130 90 45 122/64 84 92 09/045 92 34 121/64 87 93 09/04 2100 90 36 125/62 87 90 10/12 2045 90 36 122/56 81 92 09/04 2030 92 34 134/70 96 89 09/04 2025 Nasal 4.142411 36 cannula 09/04 2020 97.7 09/04 2015 94 40 132/64 91 90 09/04 2000 96 133/60 88 88 09/04 1937 97.8 09/04 1930 94 141/78 104 90 09/04 1915 89 32 136/69 97 98 09/04 1915 93 Nasal 4.641596 36 cannula 09/04 1900 89 132/60 87 92 09/04 1812 90 39 92 09/04 1800 89 44 131/69 94 89 09/04 174 90 36 134/67 93 89 09/04 1730 88 44 148/73 102 90 09/04 1715 88 41 146/71 102 89 09/04 1700 87 36 140/74 101 92 09/04 1645 86 37 138/69 97 90 24 hour I O ending at 0700: 09/05 0700 09/04 1900 Intake Total 420 115.00 Output Total 1000 1999 Balance -580 -1885.00 Intake, IV 65.00 Intake, Oral 420 50 Number 2 Bowel Movements Output, Urine 1000 1999 Patient 100 kg Weight Weight Stated/Reported Measurement Method Patient Weight Weight (lb): 220 Weight (oz): 7.4 Weight (kg): 99.79 Medications: Active Meds + DC'd Last 24 Hrs Aspirin 81 MG DAILY PO Furosemide 40 MG DAILY PO (CAN) Latanoprost 1 DROP DAILY EACH EYE Potassium Chloride 10 MEQ DAILY PO Atorvastatin Calcium 20 MG BEDTIME PO Insulin Human Lispro HIGH DOSE SLIDING SCALE Q4H SUBQ Enoxaparin Sodium 40 MG Q24H SUBQ Magnesium Sulfate/Dextrose 100 ML ONCE ONE IV (D C) Metoprolol Tartrate 25 MG Q12HR PO Potassium Chloride 20 MEQ ONCE ONE PO (DC) Atropine Sulfate 0 .STK-MED ONE IV (DC) Atorvastatin Calcium 5 MG BEDTIME PO (DC) Famotidine 20 MG BID IV (CAN) Acetaminophen 500 MG Q6H PRN PRN PO Albuterol/Ipratropium 3 ML RTQ4H INH Insulin Glargine 10 UNITS BEDTIME SUBQ Bumetanide 2 MG ONCE ONE IV (DC) Furosemide 40 MG BID@0900,1700 IV (DC) Mupirocin 1 APPLIC BID NASAL Insulin Human Lispro HIGH DOSE SLIDING SCALE Q4H SUBQ (DC) Aspirin 325 MG DAILY PO (DC) Hydralazine HCl 10 MG Q4H PRN PRN IV Nitroglycerin 1 INCH Q6HR TRANSDERM Dextrose/Water 12.5 GM ASDIR PRN IV Dextrose/Water 25 GM ASDIR PRN IV Physical Exam General appearance: alert, awake, oriented Cardiovascular: normal capillary refill, normal heart sounds, regular rate rhythm Respiratory: dyspneic Abdomen: tenderness (Umbilic al Region), normal bowel sounds, soft, no distention Extremities: no calf tenderness, no cyanosis Musculoskeletal: normal inspection, painless ran ge of motion, no paraspinal tenderness Neuro/PROCESS EXPERT: alert, oriented X 3, CNII-XII intact Results Findings/Data: Laboratory Tests 09/05 09/05 09/05 09/04 09/04 0635 0635 0342 2340 2205 Chemistry Sodium (137 - 145 MMOL/L) 139 Potassium (3.5 - 5.1 MMOL/L) 3.5 Chloride (98 - 107 MMOL/L) 98 Carbon Dioxide (22 - 30 MMOL/L) 32 H Anion Gap (14 - 24 MMOL/L) 13 L BUN (7 - 17 MG/DL) 29 H Creatinine (0.52 - 1.04 MG/DL) 1.30 H Glomerular Filtr Rate 40 Glucose (74 - 106 MG/DL) 162 H POC Glucose (60 - 99 MG/DL) 148 H 155 H Lactic Acid (0.7 - 2.1 MMOL/L) 1.7 Calcium (8.4 - 10.2 MG/DL) 8.9 Phosphorus (2.5 - 4.5 MG/DL) 4.4 Magnesium (1.6 - 2.3 MG/DL) 1.7 Total Bilirubin (0.2 - 1.3 MG/DL) 0.4 AST (14 - 36 UNITS/L) 37 H ALT (9 - 52 UNITS/L) 64 H Total Alk Phosphatase (38 - 126 84 UNITS/L) Troponin I (0.012 - 0.033 NG/ML) 0.906 *H Total Protein (6.3 - 8.2 G/DL) 6.7 Albumin (3.5 - 5.0 G/DL) 3.7 09/04 09/04 09/04 2205 2104 1951 Chemistry Sodium (137 - 145 MMOL/L) 140 Potassium (3.5 - 5.1 MMOL/L) 3.8 Chloride (98 - 107 MMOL/L) 100 Carbon Dioxide (22 - 30 MMOL/L) 29 Anion Gap (14 - 24 MMOL/L) 15 BUN (7 - 17 MG/DL) 28 H Creatinine (0.52 - 1.04 MG/DL) 1.30 H Glomerular Filtr Rate 40 Glucose (74 - 106 MG/DL) 188 H POC Glucose (60 - 99 MG/DL) 191 H 221 H Calcium (8.4 - 10.2 MG/DL) 9.4 Magnesium (1.6 - 2.3 MG/DL) 1.8 Laboratory Tests 09/05 09/05 0102 0058 Coagulation Activated Coag Time (74 - 137 SEC) 120 125 Laboratory Tests 09/05 0635 Hematology WBC (3.8 - 9.8 K/MM3) 12.8 H RBC (3.58 - 4.97 M/MM3) 4.23 Hgb (11.2 - 14.9 G/DL) 10.3 L Hct (33.2 - 43.5 %) 33.8 MCV (80.7 - 99.1 fL) 80 L MCH (27.0 - 34.1 pg) 24.3 L MCHC (32.2 - 35.7 %) 30.5 L RDW (12.1 - 15.2 %) 18.1 H Plt Count (129 - 368 K/MM3) 350 MPV (7.4 - 10.4 fl) 10.4 Neut % (Auto) (43 - 75 %) 71.7 Lymph % (Auto) (14 - 44 %) 16.7 [place] % (Auto) (4 - 13 %) 9.2 Eos % (Auto) (0 - 6 %) 1.2 Baso % (Auto) (0 - 2 %) 0.3 Neut # (Auto) (2.0 - 7.6 K/mm3) 9.17 H Lymph # (Auto) (1.0 - 3.8 K/mm3) 2.13 [place] # (Auto) (0.1 - 0.8 K/mm3) 1.17 H Eos # (Auto) (0.0 - 0.2 K/mm3) 0.15 Baso # (Auto) (0.0 - 0.2 K/mm3) 0.04 Immature Gran % (0.0 - 2.0 %) 0.9 Nucleated RBC % (0 - 1.0 %) 0.0 Nucleated RBCs # (Man) (0.0 - 0.1 K/mm3) 0.00 Diagnosis, Assessment Plan Free Text DxA P Notes Free Text DxA P Notes: 79 YO F w/ PMH of HF, Aortic Stenosis, DM, HTN, Hyperlipidemia, COPD Pancreatitis and PSH of Appendectomy, Ch olecystectomy, Left Knee Replacement C -Section is admitted to the ICU for Diuresis of Pulmonary Edema and Cardiopulmonary Arrest. The patient went into Ca rdiopulmonary arrest for 11 minutes and was succefully resusitated. Patient is intubated, awake and alert. ASSESSMENT 1. Cardiopulmonary Arrest w/ Sucessful Resusistation suspect to Cardiomyopathy 2 /2 Arrythmia vs. Acute on Chronic Systolic Heart Failure 2. Acute Hypoxic Respiratory Failure 3. DM 4. HTN 5. Hyperkalemia 6. Reactive Leukocytosis 7. Reactive Thrombocytosis 09/04 - Cardiopulmonary Arrest Continue Heart Cathetherization. EF of 20%. Consider ICD. Wait for Cardiology Inpt - Acute Hypoxic Respiratory Failure Intubation. Continue Diuretic Administration un til cleared for Extubation. Monitor Inspiratory - Flow Rate, RR and Tidal Vo lume - DM Mangage with Insulin Lispro SubQ 4 H Glargine 1 0 Units SubQ Before Bedtime - Hyperkalemia Continue Insulin. Continue Diuretics. Order BMP . Montor pH -HTN Hydralazine Q4 PRN 10mg - Thrombocytosis Leukocytosis Order CBC 09/05 - Cardiopulmonary Arrest Continue Heart Cathetherization. EF of 20%. Con librarian head External Defibrillator. Wait for Cardiology Inpt.Patient is extubated an d doing well. We will discuss with cardiology about the ex ternal defibrillator and resume GURU inhibitors when renal function is stabilized.. - Acute Hypoxic Respiratory Failure - Resolved Continue Diuretic Administration. - DM Mangage with Insulin Lispro SubQ 4 H Glargine 1 0 Units SubQ Before Bedtime - Hyperkalemia - Resolved Continue Insulin. Continue Diuretics. -HTN Hydralazine Q4 PRN 10mg - Leukocytosis - Resolved - Thromboyctosis Order CBC Quality Medications Current medication review: I attest that the foregoing medication list in t he medical record is true, accurate, and complete to the best of my knowled ge. Advanced Care Plan 65 or Older Discussed with: patient Discussion included: code status BMI Screening > 25 or < 18.5 BMI status/follow-up: abnl BMI, pt to F/U w/PCP Electronically Signed by Vani Smith MD on 08/24 02/09 at 1746 RPT #:[id number] END OF REPORT 2019-09-05 16:11:00-00:00 [facility] ([facility] Nephrology Progress Note REPORT#:[id number] REPORT STATUS: Signed DATE:09/05/19 TIME: 1611 PATIENT: ZARIA MURRELL UNIT #: [id number] ROOM/BED: [address] : 42 AGE: 79 SEX: F ATTEND: Vani Smith MD ADM AUTHOR: Carmita Alva MD * ALL edits or amendments must be made on the [employer]/computer document * Subjective Chief Complaint: f/u DINA on CKD Comments: extubated overnight, sitting up in chair, denies CP or SOB Objective General VS/I O: Vital Signs: Date Time Temp Pulse Resp B/P B/P Pulse O2 O2 F low FiO2 Mean Ox Delivery Rate 09/05 08 36.7 09/05 0747 Nasal 3.428614 cannula 09/05 0700 94 Nasal 4.534501 cannula 09/05 0615 76 26 133/69 95 96 09/05 0600 76 25 125/63 89 96 09/05 0559 25 09/05 0545 76 124/64 87 96 09/05 0530 81 23 132/68 94 93 09/05 0515 88 44 127/58 83 95 09/05 0500 82 27 136/58 84 96 09/05 0445 85 27 131/60 87 96 09/05 0430 81 26 124/56 81 96 09/05 0429 36.3 09/05 0415 80 27 127/57 84 94 09/05 0400 82 31 133/63 90 93 09/05 0345 89 47 132/62 88 90 09/05 0330 82 18 113/56 80 92 09/05 0315 87 36 154/67 96 91 09/05 0300 93 41 137/71 98 92 09/05 0245 83 27 123/63 87 94 09/05 0230 83 26 121/60 84 94 09/05 0215 82 20 117/61 84 99 09/05 0200 82 19 122/63 87 94 09/05 0145 83 15 133/63 89 96 09/05 0130 84 35 125/61 88 91 09/05 0115 89 20 128/61 88 89 09/05 0100 85 26 131/68 93 92 09/05 0045 85 16 124/84 98 93 09/05 0030 84 29 135/67 94 92 09/05 0015 84 26 137/60 86 92 09/05 0000 36.2 09/05 0000 84 15 125/65 89 92 09/04 2345 87 28 123/63 87 94 09/04 2330 86 33 129/73 94 93 09/04 2315 87 30 127/71 93 92 09/04 2300 91 33 121/66 90 92 09/04 2245 91 38 130/63 88 91 09/04 2230 91 49 118/59 83 89 09/04 2215 87 31 119/59 82 92 09/04 2200 85 32 122/65 87 92 09/04 2145 85 30 120/67 86 92 09/04 2130 90 45 122/64 84 92 09/04 2115 92 34 121/64 87 93 09/04 2100 90 36 125/62 87 90 09/04 2045 90 36 122/56 81 92 09/04 2030 92 34 134/70 96 89 09/04 2025 Nasal 4.951303 36 cannula 09/04 2020 36.5 09/04 2015 94 40 132/64 91 90 09/04 2000 96 133/60 88 88 09/04 1937 36.6 09/04 1930 94 141/78 104 90 09/04 1915 89 32 136/69 97 98 09/04 191 93 Nasal 4.670864 36 cannula 09/04 1900 89 132/60 87 92 09/04 1812 90 39 92 09/04 1800 89 44 131/69 94 89 09/04 1745 90 36 134/67 93 89 09/04 1730 88 44 148/73 102 90 09/04 1715 88 41 146/71 102 89 09/04 1700 87 36 140/74 101 92 09/04 1645 86 37 138/69 97 90 09/04 1630 87 25 141/70 99 88 09/04 1615 87 19 144/83 108 89 24 hour I O ending at 0700: 09/05 0700 09/04 1900 Intake Total 420 115.00 Output Total 1000 1999 Balance -580 -1885.00 Intake, IV 65.00 Intake, Oral 420 50 Number 2 Bowel Movements Output, Urine 1000 1999 Patient 100 kg Weight Weight Stated/Reported Measurement Method Medications Active Meds + DC'd Last 24 Hrs Aspirin 81 MG DAILY PO Furosemide 40 MG DAILY PO (CAN) Latanoprost 1 DROP DAILY EACH EYE Potassium Chloride 10 MEQ DAILY PO Atorvastatin Calcium 20 MG BEDTIME PO Insulin Human Lispro HIGH DOSE SLIDING SCALE Q4H SUBQ Enoxaparin Sodium 40 MG Q24H SUBQ Magnesium Sulfate/Dextrose 100 ML ONCE ONE IV (D C) Metoprolol Tartrate 25 MG Q12HR PO Potassium Chloride 20 MEQ ONCE ONE PO (DC) Atropine Sulfate 0 .STK-MED ONE IV (DC) Atorvastatin Calcium 5 MG BEDTIME PO (DC) Famotidine 20 MG BID IV (CAN) Acetaminophen 500 MG Q6H PRN PRN PO Albuterol/Ipratropium 3 ML RTQ4H INH Insulin Glargine 10 UNITS BEDTIME SUBQ Bumetanide 2 MG ONCE ONE IV (DC) Furosemide 40 MG BID@0900,1700 IV (DC) Mupirocin 1 APPLIC BID NASAL Insulin Human Lispro HIGH DOSE SLIDING SCALE Q4H SUBQ (DC) Aspirin 325 MG DAILY PO (DC) Hydralazine HCl 10 MG Q4H PRN PRN IV Nitroglycerin 1 INCH Q6HR TRANSDERM Dextrose/Water 12.5 GM ASDIR PRN IV Dextrose/Water 25 GM ASDIR PRN IV Physical Exam General appearance: no respiratory distress Cardiovascular: no rub Respiratory: decreased breath sounds Abdomen: normal bowel sounds, soft Extremities: no swelling Results Findings/Data: Laboratory Tests 09/05 09/05 09/05 09/04 09/04 0635 0635 0342 2340 2205 Chemistry Sodium (137 - 145 MMOL/L) 139 Potassium (3.5 - 5.1 MMOL/L) 3.5 Chloride (98 - 107 MMOL/L) 98 Carbon Dioxide (22 - 30 MMOL/L) 32 H Anion Gap (14 - 24 MMOL/L) 13 L BUN (7 - 17 MG/DL) 29 H Creatinine (0.52 - 1.04 MG/DL) 1.30 H Glomerular Filtr Rate 40 Glucose (74 - 106 MG/DL) 162 H POC Glucose (60 - 99 MG/DL) 148 H 155 H Lactic Acid (0.7 - 2.1 MMOL/L) 1.7 Calcium (8.4 - 10.2 MG/DL) 8.9 Phosphorus (2.5 - 4.5 MG/DL) 4.4 Magnesium (1.6 - 2.3 MG/DL) 1.7 Total Bilirubin (0.2 - 1.3 MG/DL) 0.4 AST (14 - 36 UNITS/L) 37 H ALT (9 - 52 UNITS/L) 64 H Total Alk Phosphatase (38 - 126 84 UNITS/L) Troponin I (0.012 - 0.033 NG/ML) 0.906 *H Total Protein (6.3 - 8.2 G/DL) 6.7 Albumin (3.5 - 5.0 G/DL) 3.7 09/04 09/04 09/04 09/04 09/04 2205 2104 1951 1615 1615 Chemistry Sodium (137 - 145 MMOL/L) 140 137 Potassium (3.5 - 5.1 MMOL/L) 3.8 4.7 Chloride (98 - 107 MMOL/L) 100 101 Carbon Dioxide (22 - 30 MMOL/L) 29 26 Anion Gap (14 - 24 MMOL/L) 15 15 BUN (7 - 17 MG/DL) 28 H 29 H Creatinine (0.52 - 1.04 MG/DL) 1.30 H 1.40 H Glomerular Filtr Rate 40 36 Glucose (74 - 106 MG/DL) 188 H 350 *H POC Glucose (60 - 99 MG/DL) 191 H 221 H Lactic Acid (0.7 - 2.1 MMOL/L) 2.3 H Calcium (8.4 - 10.2 MG/DL) 9.4 9.3 Magnesium (1.6 - 2.3 MG/DL) 1.8 Troponin I (0.012 - 0.033 NG/ML) 0.905 *H Laboratory Tests 09/05 09/05 0102 0058 Coagulation Activated Coag Time (74 - 137 SEC) 120 125 Laboratory Tests 09/05 0635 Hematology WBC (3.8 - 9.8 K/MM3) 12.8 H RBC (3.58 - 4.97 M/MM3) 4.23 Hgb (11.2 - 14.9 G/DL) 10.3 L Hct (33.2 - 43.5 %) 33.8 MCV (80.7 - 99.1 fL) 80 L MCH (27.0 - 34.1 pg) 24.3 L MCHC (32.2 - 35.7 %) 30.5 L RDW (12.1 - 15.2 %) 18.1 H Plt Count (129 - 368 K/MM3) 350 MPV (7.4 - 10.4 fl) 10.4 Neut % (Auto) (43 - 75 %) 71.7 Lymph % (Auto) (14 - 44 %) 16.7 [place] % (Auto) (4 - 13 %) 9.2 Eos % (Auto) (0 - 6 %) 1.2 Baso % (Auto) (0 - 2 %) 0.3 Neut # (Auto) (2.0 - 7.6 K/mm3) 9.17 H Lymph # (Auto) (1.0 - 3.8 K/mm3) 2.13 [place] # (Auto) (0.1 - 0.8 K/mm3) 1.17 H Eos # (Auto) (0.0 - 0.2 K/mm3) 0.15 Baso # (Auto) (0.0 - 0.2 K/mm3) 0.04 Immature Gran % (0.0 - 2.0 %) 0.9 Nucleated RBC % (0 - 1.0 %) 0.0 Nucleated RBCs # (Man) (0.0 - 0.1 K/mm3) 0.00 Diagnosis, Assessment Plan Free Text A P: 1. 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 Acute on chronic systolic and diastolic heart failure -does not appear grossly volume overload and caitlyn athing well currently -would hold off on diuretic due to #1 for now 3. Type 2 DM with DM nephropathy -DM management per primary team 4. HTN -restart home meds except GURU/ARB due to #1 5. CAD s/p LHC and stenting -per cardiology 6. Hypothyroidism -management per primary team 7. Anemia of CKD -check Iron panel Critical care time > 30 min Discussed with patient and family at bedside. 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 N ursing staff states she was hypoxic on arrival and they tried to improve her with O2. Pt states that she then became unresponsive and went into PEA. At t hat time the code was called. On arrival we started chest compression and IV a ccess was obtained. Pt was intubated with glidscope on first attempt with 7 .0 tube. CO2 color change was appreciated and breath sound s were ascultated bilaterally. During intubation IV access was obtained and epin ephrine was given 1mg (first dose was given at 07:07 and again at 07:10). Code was ran accord ing to ACLS protocol ROSC was obtained at 0711. Spoke with Dr. Conway advised of what occured he stated he wanted to take the pt straight to the cath and would admit to the ICU after. Dr. Hammer and Dr. Villanueva were present during the in itiation of code and was brought up to date on pts condition s/p cath. Electronically Signed by Steven Schafer MD on at 1323 RPT #:[id number] END OF REPORT 2019-09-05 08:53:00-00:00 [facility] ([facility]) Critical Care Progress Note REPORT#:[id number] REPORT STATUS: Signed DATE:09/05/19 TIME: 08 PATIENT: ZARIA MURRELL UNIT #: [id number] ROOM/BED: I01-A : 44 AGE: 79 SEX: F ATTEND: Vani Smith MD ADM AUTHOR: Geremias Hammer DO * ALL edits or amendments must be made on the [employer]/computer document * Subjective Chief Complaint: sob, CARDIOPULMONARY ARREST Comments: The patient was successfully extubated yesterday she does not have any neurological deficits. She stated that she did n ot have breakfast last night because she did not have an appetite she complains of intermittent shortness of breath. At the time of my evaluation the patient denied any chest pain. We did have an advanced directives conversation and the patient states that she wants to be DNR since her approxim ately a year ago. She stated that she would like to meet her again. I informed the bedside nurse of the patient's decision to be DNR and the paperwork was signed and the orders was placed in the chart. The patient was given Bumex overnight and she di uresed approximately 2 L. Review of Systems ROS Respiratory: Reports: SOB (intermittent). All systems rev neg: except as marked Objective General VS/I O Last Documented: Result Date Time O2 Delivery Nasal cannula 09/05 747 O2 Flow Rate 3.243690 09/05 747 Pulse Ox 94 09/05 700 B/P 133/69 09/05 615 B/P Mean 95 09/05 615 Pulse 76 09/05 615 Resp 26 09/05 615 Temp 36.3 09/059 FiO2 36 09/04 2025 24 hour I O ending at 0700: 09/05 190 Intake Total 420 115.00 Output Total 1000 2000 Balance -580 -1885.00 Intake, IV 65.00 Intake, Oral 420 50 Number 2 Bowel Movements Output, Urine 1000 1999 Patient 100 kg Weight Weight Stated/Reported Measurement Method Medications: Active Meds + DC'd Last 24 Hrs Enoxaparin Sodium 40 MG Q24H SUBQ Magnesium Sulfate/Dextrose 100 ML ONCE ONE IV Metoprolol Tartrate 25 MG Q12HR PO Potassium Chloride 20 MEQ ONCE ONE PO Atropine Sulfate 0 .STK-MED ONE IV (DC) Atorvastatin Calcium 5 MG BEDTIME PO Chlorhexidine Gluconate 15 ML Q12HR MM (CAN) Famotidine 20 MG BID IV (CAN) Acetaminophen 500 MG Q6H PRN PRN PO Albuterol/Ipratropium 3 ML RTQ4H INH Insulin Glargine 10 UNITS BEDTIME SUBQ Bumetanide 2 MG ONCE ONE IV (DC) Furosemide 40 MG BID@0900,1700 IV Mupirocin 1 APPLIC BID NASAL Insulin Human Lispro HIGH DOSE SLIDING SCALE Q4H SUBQ Aspirin 325 MG DAILY PO Hydralazine HCl 10 MG Q4H PRN PRN IV Insulin Human Regular 10 UNIT NOW ONE IV (DC) Nitroglycerin 1 INCH Q6HR TRANSDERM Insulin Human Lispro MEDIUM DOSE SLIDING SCALE AC HS SUBQ (DC) Enoxaparin Sodium 100 MG ONCE ONE SUBQ (DC) Dextrose/Water 12.5 GM ASDIR PRN IV Dextrose/Water 25 GM ASDIR PRN IV Metoprolol Tartrate 5 MG NOW ONE IV (DC) Fentanyl Citrate 50 MCG Q3H PRN PRN IV (DC) Propofol 100 ML .STK-MED ONE IV (DC) Furosemide 40 MG ONCE ONE IV (DC) Propofol 100 ML ASDIR IV (DC) Nitroglycerin 0 .STK-MED ONE TRANSDERM (DC) Heparin Sodium/Sodium Chloride 500 ML .STK-MED O NE IV (DC) Nitroglycerin 0 .STK-MED ONE TRANSDERM (DC) Furosemide 0 .STK-MED ONE .ROUTE (DC) Sodium Chloride 1,000 ML Q10H IV (DC) Physical Exam General appearance: obese, a lert, awake, oriented, no acute distress, pleasant, conversational, mental status normal, no respira tory distress Head/Eyes: atraumatic, normocephalic, PERRLA, EO MS, clear cornea ENT: normal dentition, normal ear left, normal e ar right, normal nose Neck: no JVD, no lymphadenopathy, no masses or s welling Cardiovascular: normal heart sounds, normal S1 S 2, normal rate and rhythm, no murmur Respiratory/Chest: aerating well, clear to auscultation, symmetric expansion, no distress, on the ventilator Abdomen: soft, non-tender, no distention, no gua rding, obese Extremities: no clubbing, no cyanosis, no edema, right groin sheaths Musculoskeletal: normal inspection Neuro/PROCESS EXPERT: alert, oriented X 3, CNII-XII intact, no motor deficits, no sensory deficits, follows commands [place] Coma Score: [place] Coma Score: Response Value Patient intubated? no Chery eyes: eyes open spontaneously 4 Chery speech: oriented 5 Chery motor: obeys commands 6 Total 15 Skin: dry, intact, normal color, normal temperat ure, no rash Results Findings/Data: Laboratory Tests 09/05/19 0635: [Embedded Image Not Available] 09/04/19 2205: [Embedded Image Not Available] 09/04/19 1615: [Embedded Image Not Available] 09/04/19 1127: [Embedded Image Not Available] 09/04/19 1127: [Embedded Image Not Available] Laboratory Tests 09/05 09/05 09/05 09/04 09/04 0635 0635 0342 2340 2205 Chemistry Sodium (137 - 145 MMOL/L) 139 Potassium (3.5 - 5.1 MMOL/L) 3.5 Chloride (98 - 107 MMOL/L) 98 Carbon Dioxide (22 - 30 MMOL/L) 32 H Anion Gap (14 - 24 MMOL/L) 13 L BUN (7 - 17 MG/DL) 29 H Creatinine (0.52 - 1.04 MG/DL) 1.30 H Glomerular Filtr Rate 40 Glucose (74 - 106 MG/DL) 162 H POC Glucose (60 - 99 MG/DL) 148 H 155 H Lactic Acid (0.7 - 2.1 MMOL/L) 1.7 Calcium (8.4 - 10.2 MG/DL) 8.9 Phosphorus (2.5 - 4.5 MG/DL) 4.4 Magnesium (1.6 - 2.3 MG/DL) 1.7 Total Bilirubin (0.2 - 1.3 MG/DL) 0.4 AST (14 - 36 UNITS/L) 37 H ALT (9 - 52 UNITS/L) 64 H Total Alk Phosphatase (38 - 126 84 UNITS/L) Troponin I (0.012 - 0.033 NG/ML) 0.906 *H Total Protein (6.3 - 8.2 G/DL) 6.7 Albumin (3.5 - 5.0 G/DL) 3.7 09/04 09/04 09/04 09/04 09/04 2205 2104 1951 1615 1615 Chemistry Sodium (137 - 145 MMOL/L) 140 137 Potassium (3.5 - 5.1 MMOL/L) 3.8 4.7 Chloride (98 - 107 MMOL/L) 100 101 Carbon Dioxide (22 - 30 MMOL/L) 29 26 Anion Gap (14 - 24 MMOL/L) 15 15 BUN (7 - 17 MG/DL) 28 H 29 H Creatinine (0.52 - 1.04 MG/DL) 1.30 H 1.40 H Glomerular Filtr Rate 40 36 Glucose (74 - 106 MG/DL) 188 H 350 *H POC Glucose (60 - 99 MG/DL) 191 H 221 H Lactic Acid (0.7 - 2.1 MMOL/L) 2.3 H Calcium (8.4 - 10.2 MG/DL) 9.4 9.3 Magnesium (1.6 - 2.3 MG/DL) 1.8 Troponin I (0.012 - 0.033 NG/ML) 0.905 *H 09/04 09/04 09/04 1127 1127 1127 Chemistry Sodium (137 - 145 MMOL/L) 137 Potassium (3.5 - 5.1 MMOL/L) 5.3 H Chloride (98 - 107 MMOL/L) 100 Carbon Dioxide (22 - 30 MMOL/L) 24 Anion Gap (14 - 24 MMOL/L) 18 BUN (7 - 17 MG/DL) 26 H Creatinine (0.52 - 1.04 MG/DL) 1.30 H Glomerular Filtr Rate 40 Glucose (74 - 106 MG/DL) 462 *H Mean Blood Glucose (70 - 110 MG/DL) 252 H Hemoglobin A1c (4.8 - 5.9 %) 10.4 H Lactic Acid (0.7 - 2.1 MMOL/L) 2.4 H Calcium (8.4 - 10.2 MG/DL) 9.1 Phosphorus (2.5 - 4.5 MG/DL) 4.9 H Magnesium (1.6 - 2.3 MG/DL) 1.9 Total Bilirubin (0.2 - 1.3 MG/DL) 0.4 AST (14 - 36 UNITS/L) 78 H ALT (9 - 52 UNITS/L) 92 H Total Alk Phosphatase (38 - 126 UNITS/L) 106 Troponin I (0.012 - 0.033 NG/ML) 0.179 *H Total Protein (6.3 - 8.2 G/DL) 7.7 Albumin (3.5 - 5.0 G/DL) 4.4 LDL Cholesterol (100 - 129 mg/dL) 112 Procalcitonin (NG/ML) < 0.05 Laboratory Tests 09/05 09/05 09/04 0102 0058 1127 Coagulation INR (0.8 - 1.1) 1.0 APTT (22.0 - 33.0 SECONDS) 24.1 PT Patient/Control Mix (9.6 - 11.6 SECONDS) 10. 8 Activated Coag Time (74 - 137 SEC) 120 125 Fibrinogen (185 - 512 MG/DL) 359 D-Dimer (0 - 0.49 MG/L FEU) 3.76 H Laboratory Tests 09/05 09/04 09/04 0635 1127 1127 Hematology WBC (3.8 - 9.8 K/MM3) 12.8 H 18.3 H RBC (3.58 - 4.97 M/MM3) 4.23 4.49 Hgb (11.2 - 14.9 G/DL) 10.3 L 10.9 L Hct (33.2 - 43.5 %) 33.8 36.2 MCV (80.7 - 99.1 fL) 80 L 81 MCH (27.0 - 34.1 pg) 24.3 L 24.3 L MCHC (32.2 - 35.7 %) 30.5 L 30.1 L RDW (12.1 - 15.2 %) 18.1 H 17.9 H Plt Count (129 - 368 K/MM3) 350 426 H 411 H MPV (7.4 - 10.4 fl) 10.4 10.0 Neut % (Auto) (43 - 75 %) 71.7 88.1 H Lymph % (Auto) (14 - 44 %) 16.7 3.9 L [place] % (Auto) (4 - 13 %) 9.2 6.0 Eos % (Auto) (0 - 6 %) 1.2 0.2 Baso % (Auto) (0 - 2 %) 0.3 0.3 Neut # (Auto) (2.0 - 7.6 K/mm3) 9.17 H 16.12 H Lymph # (Auto) (1.0 - 3.8 K/mm3) 2.13 0.71 L [place] # (Auto) (0.1 - 0.8 K/mm3) 1.17 H 1.10 H Eos # (Auto) (0.0 - 0.2 K/mm3) 0.15 0.03 Baso # (Auto) (0.0 - 0.2 K/mm3) 0.04 0.06 Immature Gran % (0.0 - 2.0 %) 0.9 1.5 Nucleated RBC % (0 - 1.0 %) 0.0 0.0 Nucleated RBCs # (Man) (0.0 - 0.1 K/mm3) 0.00 0.00 Laboratory Tests 09/04 1300 Urines Urine Color (YELLOW) YELLOW Urine Appearance (CLEAR) CLEAR Urine pH (5.0 - 9.0) 5.0 Ur Specific [place] (1.003 - 1.030) 1.010 Urine Protein (NEGATIVE MG/DL) NEGATIVE Urine Glucose (UA) (NORMAL MG/DL) 1000 H Urine Ketones (NEGATIVE MG/DL) NEGATIVE Urine Blood (NEGATIVE Jarrod/mm3) 25 H Urine Nitrite (NEGATIVE) NEGATIVE Urine Bilirubin (NEGATIVE MG/DL) NEGATIVE Urine Urobilinogen (NORMAL MG/DL) NORMAL Ur Leukocyte Esterase (NEGATIVE /mm3) NEGATIVE Urine RBC (0 - 3 RBC/HPF) 5-10 H Urine WBC (0 - 5 WBC/HPF) 3-5 Ur Epithelial Cells (FEW EPI/HPF) RARE Urine Bacteria (NONE) FEW Urine Mucus (NONE #/LPF) SLIGHT Urine Culture Screen (Culture Chk Criteria) NO, WBC<10 Microbiology: 09/04 1520 ENDOTRACH: Aspirate Culture - RECD 09/04 1520 ENDOTRACH: Gram Stain - RECD 09/04 1127 BLOOD: Blood Culture - RES 09/04 1127 BLOOD: Blood Culture - RES 09/04 1127 BLOOD: Blood Culture - RES 09/04 1127 BLOOD: Blood Culture - RES Diagnosis, Assessment Plan Free Text A P: 79-year-old female presents to the ICU after suffering a cardiopulmonary arrest in the [employer] waiting area earlier this morning. The patient has a history of congestive heart failure, hypertension, diabetes , obesity, aortic stenosis, mitral regurgitation, hyperlipidemia. Af ter the cardiac arrest the patient was able to interact and follow commands, therefore she is not a candidate for targeted temperature management Hospital day #2, ICU day #2 1. Cardiopulmonary arrest with successful resusc itation/acute systolic heart failure/coronary artery disease/hyperlipidemia The patient was down for approximately 1 1 minutes before return of spontaneous circulation. The patient rem ains hemodynamically stable without any respiratory compromise status post extub ation. Continue medications for heart failure which includes metoprolol 25 mg ev jarrod 12, I will hold her Lasix for now as the patient appears to be not volume overloaded and diuresed well overnight . Resume diuresis when okay with the nephrology service. Continue aspirin 325 mg. The patient is currently on Nitropaste per t cardiology service recommendations. Lipitor 5 mg at bedtime. The patient does not rowe ve any neurological deficits from the cardiopulmonary arrest that occ urred yesterday she is awake alert and oriented x4 . I had an advance directives discus melodie with the patient this morning and she is opted for DO NOT RESUSCITATE status if she were to have another cardiopulmonary arrest in the [facility]. 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 We will start physical therapy give the patient [place] bed ambulating 2. Acute respiratory failure with hypoxia Resolved the patient was successfully ex tubated on September 04,. No respiratory compromise reported overnight. The patient is to lerating nasal cannula well. 3. Uncontrolled diabetes Continue Lantus to 10 units at bedtime. The santa ent will receive high-dose sliding scale. Her hemoglobin A1c is 10. 4. Uncontrolled hypertension Continue metoprolol schedule and hydralazine as needed. Continue to hold ARB GURU in light of the patient's possible acute and chronic kidney disease. 5. Hyperkalemia/chronic kidney disease stage III Hypokalemia resolved the potassium is 3.5 today. The patient's BUN and creatinine are 29 and 1.3 respectively. I will h old the Lasix today as the patient has diuresed adequately enough that is n ot affecting her respiratory status and her acute heart failure. I will defer further management to the nephrology service. Continue to hold GURU and ARB . Patient's potassium was repleted with 20 mEq of potassium chloride 6. Morbid obesity Recommend diet and weight lo ss when the patient is discharged from the hospital 7. Goals of care: I discusse d advanced directives with the patient this morning and she is opted for DNR status, her son is the next of kin Maya Murrell []. The patient is awake and able to foll ow commands The critical care service will sign off at this time the patient remains hemodynamically stable talking respiratory compr omise. Recall the patient has any critical care issues. [facility] 40 mg daily for DVT prophylaxis Critical care time 35 minutes Orders: Procedure Date/time Status Cleared for Transfer 09/05 1108 Active MD to sign off case 09/05 1108 Active Resuscitation Status + 09/05 0858 Active Consultants: cardiology, family medicine, environmental intern al medicine, nephrology Code status: do not resuscitate Plan discussed with: patient, nurse Quality Medications Current medication review: I attest that the foregoing medication list in t he medical record is true, accurate, and complete to the best of my knowled ge. VTE Prophylaxis VTE prophylaxis initiated: yes Advanced Care Plan 65 or Older Discussed with: patient Discussion included: code status BMI Screening > 25 or < 18.5 Patient's BMI: Current BMI: 39.1 BMI status/follow-up: abnl BMI, pt to F/U w/PCP at 1111 RPT #:[id number] END OF REPORT 2019-09-05 08:31:00-00:00 [facility] ([facility]) Cardiology Progress Note REPORT#:[id number] REPORT STATUS: Signed DATE:09/05/19 TIME: 830 PATIENT: ZARIA MURRELL UNIT #: [id number] ROOM/BED: [address] : 42 AGE: 79 SEX: F ATTEND: Vani Smith MD ADM AUTHOR: Matteo Oropeza MD * ALL edits or amendments must be made on the el [employer]/computer document * Subjective Chief Complaint: Dyspnea Unable to obtain: intubated Objective General VS/I O: 24 hour I O ending at 0700: 09/05 0700 09/04 1900 Intake Total 420 115.00 Output Total 1000 1999 Balance -580 -1885.00 Intake, IV 65.00 Intake, Oral 420 50 Number 2 Bowel Movements Output, Urine 1000 1999 Patient 100 kg Weight Weight Stated/Reported Measurement Method Vital Signs: Date Time Temp Pulse Resp B/P B/P Pulse O2 O2 F low FiO2 Mean Ox Delivery Rate 09/05 0747 Nasal 3.416302 cannula 09/05 0700 94 Nasal 4.547686 cannula 09/05 0615 76 26 133/69 95 96 09/05 0600 76 25 125/63 89 96 09/05 0559 25 09/05 0545 76 124/64 87 96 09/05 0530 81 23 132/68 94 93 09/05 0515 88 44 127/58 83 95 09/05 0500 82 27 136/58 84 96 09/05 0445 85 27 131/60 87 96 09/05 0430 81 26 124/56 81 96 09/05 0429 97.4 09/05 0415 80 27 127/57 84 94 09/05 0400 82 31 133/63 90 93 09/05 0345 89 47 132/62 88 90 09/05 0330 82 18 113/56 80 92 09/05 0315 87 36 154/67 96 91 09/05 0300 93 41 137/71 98 92 09/05 0245 83 27 123/63 87 94 09/05 0230 83 26 121/60 84 94 09/05 0215 82 20 117/61 84 99 09/05 0200 82 19 122/63 87 94 09/05 0145 83 15 133/63 89 96 09/05 0130 84 35 125/61 88 91 09/05 0115 89 20 128/61 88 89 09/05 0100 85 26 131/68 93 92 09/05 0045 85 16 124/84 98 93 09/05 0030 84 29 135/67 94 92 09/05 0015 84 26 137/60 86 92 09/05 0000 97.2 09/05 0000 84 15 125/65 89 92 09/04 2345 87 28 123/63 87 94 09/04 2330 86 33 129/73 94 93 09/04 2315 87 30 127/71 93 92 09/04 2300 91 33 121/66 90 92 09/04 2245 91 38 130/63 88 91 09/04 2230 91 49 118/59 83 89 09/04 2215 87 31 119/59 82 92 09/04 2200 85 32 122/65 87 92 09/04 2145 85 30 120/67 86 92 09/040 90 45 122/64 84 92 09/04 2115 92 34 121/64 87 93 09/04 2100 90 36 125/62 87 90 09/04 2045 90 36 122/56 81 92 09/04 2030 92 34 134/70 96 89 09/04 2025 Nasal 4.755160 36 cannula 09/04 2020 97.7 09/04 2015 94 40 132/64 91 90 09/04 2000 96 133/60 88 88 09/04 1937 97.8 09/04 1930 94 141/78 104 90 09/04 1915 89 32 136/69 97 98 09/04 1915 93 Nasal 4.087160 36 cannula 09/04 1900 89 132/60 87 92 09/04 1812 90 39 92 09/04 1800 89 44 131/69 94 89 09/04 1745 90 36 134/67 93 89 09/04 1730 88 44 148/73 102 90 09/04 1715 88 41 146/71 102 89 09/04 1700 87 36 140/74 101 92 09/04 1645 86 37 138/69 97 90 09/04 1630 87 25 141/70 99 88 09/04 1615 87 19 144/83 108 89 09/04 1612 94 Nasal 4.075817 36 cannula 09/04 1607 87 19 142/80 94 09/04 1600 83 16 142/80 106 94 09/04 1550 85 142/80 94 50 09/04 1545 81 20 136/82 104 96 09/04 1530 77 18 132/71 96 94 09/04 1515 71 17 121/69 86 96 09/04 1500 69 19 107/65 80 93 09/04 1445 68 20 105/65 79 93 09/04 1430 68 18 102/62 77 93 09/04 1415 65 18 96/59 73 91 09/04 1400 64 18 94/58 71 92 09/04 1345 64 20 98/53 73 94 09/04 1330 72 20 116/65 85 93 09/04 1315 88 16 132/76 98 94 09/04 1300 87 18 127/74 95 93 09/04 1245 90 17 135/74 98 93 09/04 1230 88 17 131/68 94 93 09/04 1215 93 16 134/77 99 94 09/04 1202 96 95 50 09/04 1200 98 26 135/67 94 96 09/04 1155 102 39 153/70 101 96 09/04 1145 103 37 156/82 112 95 09/04 1130 101 16 141/67 96 96 09/04 1100 97.9 50 09/04 1100 Ventilator 100 09/04 1100 96 20 145/78 104 96 09/04 1010 104 147/72 94 50 Patient Weight Weight (lb): 220 Weight (oz): 7.4 Weight (kg): 100.000 Medications: Active Meds + DC'd Last 24 Hrs Enoxaparin Sodium 40 MG Q24H SUBQ Magnesium Sulfate/Dextrose 100 ML ONCE ONE IV Metoprolol Tartrate 25 MG Q12HR PO Potassium Chloride 20 MEQ ONCE ONE PO Atropine Sulfate 0 .STK-MED ONE IV (DC) Atorvastatin Calcium 5 MG BEDTIME PO Chlorhexidine Gluconate 15 ML Q12HR MM (CAN) Famotidine 20 MG BID IV (CAN) Acetaminophen 500 MG Q6H PRN PRN PO Albuterol/Ipratropium 3 ML RTQ4H INH Insulin Glargine 10 UNITS BEDTIME SUBQ Bumetanide 2 MG ONCE ONE IV (DC) Furosemide 40 MG BID@0900,1700 IV Mupirocin 1 APPLIC BID NASAL Insulin Human Lispro HIGH DOSE SLIDING SCALE Q4H SUBQ Aspirin 325 MG DAILY PO Hydralazine HCl 10 MG Q4H PRN PRN IV Insulin Human Regular 10 UNIT NOW ONE IV (DC) Nitroglycerin 1 INCH Q6HR TRANSDERM Insulin Human Lispro MEDIUM DOSE SLIDING SCALE AC HS SUBQ (DC) Enoxaparin Sodium 100 MG ONCE ONE SUBQ (DC) Dextrose/Water 12.5 GM ASDIR PRN IV Dextrose/Water 25 GM ASDIR PRN IV Metoprolol Tartrate 5 MG NOW ONE IV (DC) Fentanyl Citrate 50 MCG Q3H PRN PRN IV (DC) Propofol 100 ML .STK-MED ONE IV (DC) Furosemide 40 MG ONCE ONE IV (DC) Propofol 100 ML ASDIR IV (DC) Nitroglycerin 0 .STK-MED ONE TRANSDERM (DC) Heparin Sodium/Sodium Chloride 500 ML .STK-MED O NE IV (DC) Nitroglycerin 0 .STK-MED ONE TRANSDERM (DC) Furosemide 0 .STK-MED ONE .ROUTE (DC) Sodium Chloride 1,000 ML Q10H IV (DC) Physical Exam General appearance: alert, awake, oriented Head/Eyes: atraumatic, normocephalic ENT: moist mucosal membranes Neck: no JVD Cardiovascular: CV assessment: regular rate and rhythm Respiratory: clear to auscultation, no distress Abdomen: soft, non-tender Upper extremity: UE assessment: no edema Lower extremity: LE assessment: no edema Musculoskeletal: full range of motion Neuro/PROCESS EXPERT: alert, oriented X 3, CN II-XII intact Skin: dry, intact Psychiatry: normal affect, normal judgment/insig ht, normal mood Results Findings/Data: Laboratory Tests 09/04 09/04 09/04 1000 0907 0902 Blood Gas Puncture Site RB ABG pH (7.35 - 7.45 mmHg) 7.32 L 7.286 L 7.257 L ABG pCO2 (35.0 - 45.0 mmHg) 42.6 48.7 H 52.7 H ABG pO2 (80.0 - 100.0 mmol/L) 119.4 H 82 36 *L ABG HCO3 (20.0 - 26.0 mmol/L) 21.6 23.2 H 23.5 H ABG O2 Saturation (95.0 - 100.0 %) 98.1 94 L 58 *L ABG Base Excess (-3.0 - 3.0 mmol/L) -4.3 L -3 - 4 Reymundo Test (CHECK) NA Ionized Calcium (1.12 - 1.24 MMOL/L) 1.11 L 1.1 4 Temperature (37 C) 37.0 O2 Delivery Device VENT Vent Mode A/C Vent Rate (/MIN) 20.0 FiO2 (%) 100 Tidal Volume (ml) 400 PEEP (cmH2O) 10.0 Laboratory Tests 09/05 09/05 09/05 09/04 09/04 0635 0635 0342 2340 2205 Chemistry Sodium (137 - 145 MMOL/L) 139 Potassium (3.5 - 5.1 MMOL/L) 3.5 Chloride (98 - 107 MMOL/L) 98 Carbon Dioxide (22 - 30 MMOL/L) 32 H Anion Gap (14 - 24 MMOL/L) 13 L BUN (7 - 17 MG/DL) 29 H Creatinine (0.52 - 1.04 MG/DL) 1.30 H Glomerular Filtr Rate 40 Glucose (74 - 106 MG/DL) 162 H POC Glucose (60 - 99 MG/DL) 148 H 155 H Lactic Acid (0.7 - 2.1 MMOL/L) 1.7 Calcium (8.4 - 10.2 MG/DL) 8.9 Phosphorus (2.5 - 4.5 MG/DL) 4.4 Magnesium (1.6 - 2.3 MG/DL) 1.7 Total Bilirubin (0.2 - 1.3 MG/DL) 0.4 AST (14 - 36 UNITS/L) 37 H ALT (9 - 52 UNITS/L) 64 H Total Alk Phosphatase (38 - 126 84 UNITS/L) Troponin I (0.012 - 0.033 NG/ML) 0.906 *H Total Protein (6.3 - 8.2 G/DL) 6.7 Albumin (3.5 - 5.0 G/DL) 3.7 09/04 09/04 09/04 09/04 09/04 2205 2104 1951 1615 1615 Chemistry Sodium (137 - 145 MMOL/L) 140 137 Potassium (3.5 - 5.1 MMOL/L) 3.8 4.7 Chloride (98 - 107 MMOL/L) 100 101 Carbon Dioxide (22 - 30 MMOL/L) 29 26 Anion Gap (14 - 24 MMOL/L) 15 15 BUN (7 - 17 MG/DL) 28 H 29 H Creatinine (0.52 - 1.04 MG/DL) 1.30 H 1.40 H Glomerular Filtr Rate 40 36 Glucose (74 - 106 MG/DL) 188 H 350 *H POC Glucose (60 - 99 MG/DL) 191 H 221 H Lactic Acid (0.7 - 2.1 MMOL/L) 2.3 H Calcium (8.4 - 10.2 MG/DL) 9.4 9.3 Magnesium (1.6 - 2.3 MG/DL) 1.8 Troponin I (0.012 - 0.033 NG/ML) 0.905 *H 09/04 09/04 09/04 09/04 1127 1127 1127 0907 Chemistry POC Sodium (137 - 144 MMOL/L) 137 Sodium (137 - 145 MMOL/L) 137 POC Potassium (3.1 - 4.8 MMOL/L) 5.3 H Potassium (3.5 - 5.1 MMOL/L) 5.3 H Chloride (98 - 107 MMOL/L) 100 Carbon Dioxide (22 - 30 MMOL/L) 24 Anion Gap (14 - 24 MMOL/L) 18 BUN (7 - 17 MG/DL) 26 H Creatinine (0.52 - 1.04 MG/DL) 1.30 H Glomerular Filtr Rate 40 Glucose (74 - 106 MG/DL) 462 *H POC Glucose (60 - 99 MG/DL) 474 *H Mean Blood Glucose (70 - 110 MG/DL) 252 H Hemoglobin A1c (4.8 - 5.9 %) 10.4 H Lactic Acid (0.7 - 2.1 MMOL/L) 2.4 H Calcium (8.4 - 10.2 MG/DL) 9.1 Phosphorus (2.5 - 4.5 MG/DL) 4.9 H Magnesium (1.6 - 2.3 MG/DL) 1.9 Total Bilirubin (0.2 - 1.3 MG/DL) 0.4 AST (14 - 36 UNITS/L) 78 H ALT (9 - 52 UNITS/L) 92 H Total Alk Phosphatase (38 - 126 UNITS/L) 106 Troponin I (0.012 - 0.033 NG/ML) 0.179 *H Total Protein (6.3 - 8.2 G/DL) 7.7 Albumin (3.5 - 5.0 G/DL) 4.4 LDL Cholesterol (100 - 129 mg/dL) 112 Procalcitonin (NG/ML) < 0.05 09/04 0902 Chemistry POC Sodium (137 - 144 MMOL/L) 136 L POC Potassium (3.1 - 4.8 MMOL/L) 5.4 H POC Glucose (60 - 99 MG/DL) 451 *H Laboratory Tests 09/052 0058 1127 Coagulation INR (0.8 - 1.1) 1.0 APTT (22.0 - 33.0 SECONDS) 24.1 PT Patient/Control Mix (9.6 - 11.6 SECONDS) 10. 8 Activated Coag Time (74 - 137 SEC) 120 125 Fibrinogen (185 - 512 MG/DL) 359 D-Dimer (0 - 0.49 MG/L FEU) 3.76 H Laboratory Tests 09/05 09/04 09/04 0635 1127 1127 Hematology WBC (3.8 - 9.8 K/MM3) 12.8 H 18.3 H RBC (3.58 - 4.97 M/MM3) 4.23 4.49 Hgb (11.2 - 14.9 G/DL) 10.3 L 10.9 L Hct (33.2 - 43.5 %) 33.8 36.2 MCV (80.7 - 99.1 fL) 80 L 81 MCH (27.0 - 34.1 pg) 24.3 L 24.3 L MCHC (32.2 - 35.7 %) 30.5 L 30.1 L RDW (12.1 - 15.2 %) 18.1 H 17.9 H Plt Count (129 - 368 K/MM3) 350 426 H 411 H MPV (7.4 - 10.4 fl) 10.4 10.0 Neut % (Auto) (43 - 75 %) 71.7 88.1 H Lymph % (Auto) (14 - 44 %) 16.7 3.9 L [place] % (Auto) (4 - 13 %) 9.2 6.0 Eos % (Auto) (0 - 6 %) 1.2 0.2 Baso % (Auto) (0 - 2 %) 0.3 0.3 Neut # (Auto) (2.0 - 7.6 K/mm3) 9.17 H 16.12 H Lymph # (Auto) (1.0 - 3.8 K/mm3) 2.13 0.71 L [place] # (Auto) (0.1 - 0.8 K/mm3) 1.17 H 1.10 H Eos # (Auto) (0.0 - 0.2 K/mm3) 0.15 0.03 Baso # (Auto) (0.0 - 0.2 K/mm3) 0.04 0.06 Immature Gran % (0.0 - 2.0 %) 0.9 1.5 Nucleated RBC % (0 - 1.0 %) 0.0 0.0 Nucleated RBCs # (Man) (0.0 - 0.1 K/mm3) 0.00 0 .00 Laboratory Tests 09/04 1300 Urines Urine Color (YELLOW) YELLOW Urine Appearance (CLEAR) CLEAR Urine pH (5.0 - 9.0) 5.0 Ur Specific [place] (1.003 - 1.030) 1.010 Urine Protein (NEGATIVE MG/DL) NEGATIVE Urine Glucose (UA) (NORMAL MG/DL) 1000 H Urine Ketones (NEGATIVE MG/DL) NEGATIVE Urine Blood (NEGATIVE [place]/mm3) 25 H Urine Nitrite (NEGATIVE) NEGATIVE Urine Bilirubin (NEGATIVE MG/DL) NEGATIVE Urine Urobilinogen (NORMAL MG/DL) NORMAL Ur Leukocyte Esterase (NEGATIVE /mm3) NEGATIVE Urine RBC (0 - 3 RBC/HPF) 5-10 H Urine WBC (0 - 5 WBC/HPF) 3-5 Ur Epithelial Cells (FEW EPI/HPF) RARE Urine Bacteria (NONE) FEW Urine Mucus (NONE #/LPF) SLIGHT Urine Culture Screen (Culture Chk Criteria) NO, WBC<10 Laboratory Tests 09/05 09/04 09/04 09/04 09/04 0635 2205 2205 1615 1127 Chemistry Magnesium (1.6 - 2.3 MG/DL) 1.7 1.8 1.9 Troponin I (0.012 - 0.033 NG/ML) 0.906 *H 0.905 *H 0.179 *H Laboratory Tests 09/04 1127 Coagulation APTT (22.0 - 33.0 SECONDS) 24.1 Diagnosis, Assessment Plan Free Text DxA P Notes Free Text DxA P Notes: IMP: Acute on chronic systolic heart failure LVEF 20-24% by echo 09/04/19 s/p cardiopulmonary arrest Moderate CAD PLAN: Continue diuresis with IV lasix at 0831 RPT #:[id number] END OF REPORT 2019-09-05 07:52:00-00:00 [id number] [address] PATIENT NAME: ZARIA MURRELL ADMIT DATE: 9 ACCOUNT NO: [id number] ROOM NO: [facility]01 AGE: 79 REPORT TYPE: ELECTROCARDIOGRAM SEX: F ADMITTING PHYSICIAN:Vani Smith MD ATTENDING PHYSICIAN:Vani Smith MD Order: [id number] Test Reason : CAD Test Date/Time Stamp: FriSep 05 2019 07:52:22 Blood Pressure : / mmHG Vent. Rate : 084 BPM Atrial Rate : 084 BPM P-R Int : 158 ms QRS Dur : 084 ms QT Int : 410 ms P-R-T Axes : 060 003 153 degree s QTc Int : 484 ms Normal sinus rhythm Possible Left atrial enlargement Left ventricular hypertrophy with repolarization abnormality Abnormal ECG When compared with ECG of 04-SEP-2019 07:19, fusion complexes are no longer present premature ventricular complexes are no longer pr esent ST no longer depressed in Inferior leads T wave inversion no longer evident in Inferior l ismael Confirmed by AMOS CONWAY ([id number]) on 09/05/2019 12:50:11 PM Referred By: Amos Conway Confirmed by:AMOS LARKIN at 1250 PATIENT NAME: ZARIA MURRELL 7025 2019-09-04 15:51:00-00:00 [facility] ([facility] Hospitalist Progress Note REPORT#:[id number] REPORT STATUS: Signed DATE:09/04/19 TIME: 1551 PATIENT: ZARIA MURRELL UNIT #: [id number] ROOM/BED: [address] : [address] AGE: 79 SEX: F ATTEND: Vani Smith MD ADM AUTHOR: Vain Smith MD * ALL edits or amendments must be made on the [employer]/computer document * Subjective Free Text Subj Notes Free Subj Notes: 79 YO F w/ PMH of HF, Aortic Stenosis, DM, HTN, Hyperlipidemia, COPD is admitted to the ICU for Diur esis of Pulmonary Edema and Cardiopulmonary Arrest. The patient initally came in for Heart C athetherization for an LAD lesion when she experienced SOB. The patient was the n placed on Oxygen but still went into Cardiopulmonary arrest for 1 1 minutes and was succefully resusitated. Patient is intubated, awake and alert. Initial Physical Exa m was unable to be conducted. Review of Systems Unable to obtain due to: Patient Intubated Objective Physical Exam General appearance: respiratory support, alert, awake Cardiovascular: tachycardia Respiratory: dyspneic Extremities: no calf tenderness, no cyanosis Results Findings/Data: Laboratory Tests 09/04 09/04 09/04 09/04 1000 0907 0902 0746 Blood Gas Puncture Site RB R Brachial O2 Saturation (92.0 - 98.5 %) 94 ABG pH (7.35 - 7.45 mmHg) 7.32 L 7.286 L 7.257 L 7.156 *L ABG pCO2 (35.0 - 45.0 mmHg) 42.6 48.7 H 52.7 H 55.0 *H ABG pO2 (80.0 - 100.0 mmol/L) 119.4 H 82 36 *L 91 ABG HCO3 (20.0 - 26.0 mmol/L) 21.6 23.2 H 23.5 H 19.4 L ABG O2 Saturation (95.0 - 100.0 %) 98.1 94 L 58 *L ABG Base Excess (-3.0 - 3.0 mmol/L) -4.3 L -3 - 4 -9.0 L Reymundo Test (CHECK) NA N/A Ionized Calcium (1.12 - 1.24 MMOL/L) 1.11 L 1.1 4 Temperature (37 C) 37.0 O2 Delivery Device VENT Vent Vent Mode A/C CMV Vent Rate (/MIN) 20.0 16 FiO2 (%) 100 100 Tidal Volume (ml) 400 400 PEEP (cmH2O) 10.0 10 Laboratory Tests 09/04 09/04 09/04 09/04 1127 [id number] Chemistry POC Sodium (137 - 144 MMOL/L) 137 Sodium (137 - 145 MMOL/L) 137 POC Potassium (3.1 - 4.8 MMOL/L) 5.3 H Potassium (3.5 - 5.1 MMOL/L) 5.3 H Chloride (98 - 107 MMOL/L) 100 Carbon Dioxide (22 - 30 MMOL/L) 24 Anion Gap (14 - 24 MMOL/L) 18 BUN (7 - 17 MG/DL) 26 H Creatinine (0.52 - 1.04 MG/DL) 1.30 H Glomerular Filtr Rate 40 Glucose (74 - 106 MG/DL) 462 *H POC Glucose (60 - 99 MG/DL) 474 *H Mean Blood Glucose (70 - 110 MG/DL) 252 H Hemoglobin A1c (4.8 - 5.9 %) 10.4 H Lactic Acid (0.7 - 2.1 MMOL/L) 2.4 H Calcium (8.4 - 10.2 MG/DL) 9.1 Phosphorus (2.5 - 4.5 MG/DL) 4.9 H Magnesium (1.6 - 2.3 MG/DL) 1.9 Total Bilirubin (0.2 - 1.3 MG/DL) 0.4 AST (14 - 36 UNITS/L) 78 H ALT (9 - 52 UNITS/L) 92 H Total Alk Phosphatase (38 - 126 UNITS/L) 106 Troponin I (0.012 - 0.033 NG/ML) 0.179 *H Total Protein (6.3 - 8.2 G/DL) 7.7 Albumin (3.5 - 5.0 G/DL) 4.4 LDL Cholesterol (100 - 129 mg/dL) 112 Procalcitonin (NG/ML) < 0.05 09/04 09/04 09/04 0902 [id number] Chemistry POC Sodium (137 - 144 MMOL/L) 136 L Sodium (137 - 145 MMOL/L) 138 POC Potassium (3.1 - 4.8 MMOL/L) 5.4 H Potassium (3.5 - 5.1 MMOL/L) 4.5 Chloride (98 - 107 MMOL/L) 103 Carbon Dioxide (22 - 30 MMOL/L) 25 Anion Gap (14 - 24 MMOL/L) 15 BUN (7 - 17 MG/DL) 24 H Creatinine (0.52 - 1.04 MG/DL) 1.10 H Glomerular Filtr Rate 48 Glucose (74 - 106 MG/DL) 293 H POC Glucose (60 - 99 MG/DL) 451 *H POC Lactic Acid (0.4 - 2.0 MMOL/L) 4.60 *H Calcium (8.4 - 10.2 MG/DL) 9.4 Magnesium (1.6 - 2.3 MG/DL) 1.7 Triglycerides (MG/DL) 167 Cholesterol (<200 MG/DL) 195 LDL Cholesterol Measurd (0 - 99 MG/DL) 109 H HDL Cholesterol (40 - 59 MG/DL) 61 H Laboratory Tests 09/04 09/04 1127 0620 Coagulation INR (0.8 - 1.1) 1.0 1.0 APTT (22.0 - 33.0 SECONDS) 24.1 25.3 PT Patient/Control Mix (9.6 - 11.6 SECONDS) 10. 8 10.7 Fibrinogen (185 - 512 MG/DL) 359 D-Dimer (0 - 0.49 MG/L FEU) 3.76 H Laboratory Tests 09/047 1127 0620 Hematology WBC (3.8 - 9.8 K/MM3) 18.3 H 11.4 H RBC (3.58 - 4.97 M/MM3) 4.49 4.47 Hgb (11.2 - 14.9 G/DL) 10.9 L 10.8 L Hct (33.2 - 43.5 %) 36.2 35.9 MCV (80.7 - 99.1 fL) 81 80 L MCH (27.0 - 34.1 pg) 24.3 L 24.2 L MCHC (32.2 - 35.7 %) 30.1 L 30.1 L RDW (12.1 - 15.2 %) 17.9 H 18.1 H Plt Count (129 - 368 K/MM3) 426 H 411 H 405 H MPV (7.4 - 10.4 fl) 10.0 9.7 Neut % (Auto) (43 - 75 %) 88.1 H 76.8 H Lymph % (Auto) (14 - 44 %) 3.9 L 11.2 L [place] % (Auto) (4 - 13 %) 6.0 6.9 Eos % (Auto) (0 - 6 %) 0.2 3.9 Baso % (Auto) (0 - 2 %) 0.3 0.4 Neut # (Auto) (2.0 - 7.6 K/mm3) 16.12 H 8.76 H Lymph # (Auto) (1.0 - 3.8 K/mm3) 0.71 L 1.28 [place] # (Auto) (0.1 - 0.8 K/mm3) 1.10 H 0.79 Eos # (Auto) (0.0 - 0.2 K/mm3) 0.03 0.45 H Baso # (Auto) (0.0 - 0.2 K/mm3) 0.06 0.05 Immature Gran % (0.0 - 2.0 %) 1.5 0.8 Nucleated RBC % (0 - 1.0 %) 0.0 0.0 Nucleated RBCs # (Man) (0.0 - 0.1 K/mm3) 0.00 0 .00 Laboratory Tests 09/04 1300 Urines Urine Color (YELLOW) YELLOW Urine Appearance (CLEAR) CLEAR Urine pH (5.0 - 9.0) 5.0 Ur Specific [place] (1.003 - 1.030) 1.010 Urine Protein (NEGATIVE MG/DL) NEGATIVE Urine Glucose (UA) (NORMAL MG/DL) 1000 H Urine Ketones (NEGATIVE MG/DL) NEGATIVE Urine Blood (NEGATIVE Jarrod/mm3) 25 H Urine Nitrite (NEGATIVE) NEGATIVE Urine Bilirubin (NEGATIVE MG/DL) NEGATIVE Urine Urobilinogen (NORMAL MG/DL) NORMAL Ur Leukocyte Esterase (NEGATIVE /mm3) NEGATIVE Urine RBC (0 - 3 RBC/HPF) 5-10 H Urine WBC (0 - 5 WBC/HPF) 3-5 Ur Epithelial Cells (FEW EPI/HPF) RARE Urine Bacteria (NONE) FEW Urine Mucus (NONE #/LPF) SLIGHT Urine Culture Screen (Culture Chk Criteria) NO, WBC<10 Radiology data: Recent Impressions: RADIOLOGY - XR CHEST 1V 09/04 0709 Report Impression - Status: SIGNED Entered: 09/04/2019 0833 IMPRESSION: Bilateral hazy diffuse airspace opacity, right g reater than left, may represent asymmetric pulmonary edema. Recommend continued follow-up. Impression By: [email or web address] - Madonna Guzman Diagnosis, Assessment Plan Orders: Procedure Date/time Status O2 60MIN 09/04 1617 Active NEPHROLOGY CONSULT 09/04 1324 Active CARDIOLOGY CONSULT 09/04 1324 Active Free Text DxA P Notes Free Text DxA P Notes: 79 YO F w/ PMH of HF, Aortic Stenosis, DM, HTN, Hyperlipidemia, COPD is admitted to the ICU for Diur esis of Pulmonary Edema and Cardiopulmonary Arrest. The patient went into Cardiopulmonary ar rest for 11 minutes and was succefully resusitated. Patient is intubated, awake and randy rt. ASSESSMENT 1. Cardiopulmonary Arrest w/ Sucessful Resusistation suspect to Cardiomyopathy 2 /2 Arrythmia vs. Acute on Chronic Systolic Heart Failure 2. Acute Hypoxic Respiratory Failure 3. DM 4. HTN 5. Hyperkalemia 6. Reactive Leukocytosis 7. Reactive Thrombocytosis 09/04 - Cardiopulmonary Arrest Continue Heart Cathetherization. EF of 20%. Consider ICD. Wait for Cardiology Inpt - Acute Hypoxic Respiratory Failure Intubation. Continue Diuretic Administration un til cleared for Extubation. Monitor Inspiratory - Flow Rate, RR and Tidal Vo lume - DM Mangage with Insulin Lispro SubQ 4 H Glargine 1 0 Units SubQ Before Bedtime - Hyperkalemia Continue Insulin. Continue Diuretics. Order BMP . Ree pH -HTN Hydralazine Q4 PRN 10mg - Thrombocytosis Leukocytosis Order CBC Quality Medications Current medication review: I attest that the foregoing medication list in t he medical record is true, accurate, and complete to the best of my knowled ge. Advanced Care Plan 65 or Older Discussed with: patient, other Discussion included: code status (full code) Heart Failure:DC on BB,GURU/ARB LVEF: < 40% Beta hermann Rx at DC: yes; medication: ACEI/ARB Rx at DC: yes; medication: Electronically Signed by Vani Smith MD on 08/24 02/09 at 1658 RPT #:[id number] END OF REPORT 2019-09-04 14:46:00-00:00 [facility] ([facility]) Nephrology Consultation Note REPORT#:[id number] REPORT STATUS: Signed DATE:09/04/19 TIME: 1446 PATIENT: ZARIA MURRELL UNIT #: [id number] ROOM/BED: [address] : 42 AGE: 79 SEX: F ATTEND: Vani Smith MD ADM AUTHOR: Carmita Alva MD * ALL edits or amendments must be made on the el [employer]/computer document * History of Present Illness Requesting clinician: Dr. 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 S/p C today with stenting. Renal consulted for DINA on CKD post acute events. History - Adult longitudinal Past medical history: Reports: Congestive heart failure, Coron robyn artery disease, Diabetes mellitus, Hypertension, Kidney disease/stones. Smoking status for patients 13 years old or olde r: Never Smoker Medications: Home Medications: Medication Dose/Rte/Freq Days Qty Entered Last Max Daily Dose Reviewed PRAVASTATIN (PRAVACHOL) 20 MG PO DAILY 09/03/19 Strength: 20 MG TAB 0935 POTASSIUM CHLORIDE ER 10 MEQ PO DAILY 09/03/19 (KLOR-CON 10) 0935 Strength: 10 MEQ TAB.SR LOSARTAN (COZAAR) 100 MG PO DAILY 09/03/19 Strength: 100 MG TAB 0937 CELECOXIB (CeleBREX) 200 MG PO DAILY 09/03/19 Strength: 200 MG CAP 0941 GLIMEPIRIDE (AMARYL) 1 MG PO DAILY 09/03/19 Strength: 1 MG TAB 0941 metFORMIN (GLUCOPHAGE) 09/03/19 Strength: 500 MG TAB 0942 OMEPRAZOLE ER (PriLOSEC) 40 MG PO DAILY 9 Strength: 40 MG CAP.DR 0944 SPIRONOLACTONE 50 MG PO DAILY 09/03/19 (ALDACTONE) 0945 Strength: 50 MG TAB [thyroid] 90 MG DAILY 09/03/19 Strength: 0949 FLUTICASONE 1 PUFF INH RTDAILY 09/03/19 FUROATE/VILANTEROL 0951 200/25 MCG/ACT (BREO ELLIPTA 200/25 MCG/ACT) Strength: 30 INH INHALER LATANOPROST 09/03/19 (XALATAN 0.005% OPHTH 0951 SOLN) Strength: 2.5 ML OPHTH.SOLN FUROSEMIDE (LASIX) 40 MG PO DAILY 09/03/19 Strength: 40 MG TAB 0952 ASPIRIN 81 MG PO DAILY 09/03/19 Strength: 81 MG TAB.CHEW 0952 Current Hospital Medications: Antihistamine Drugs Sig/Elham Start time Last Medication Dose Route Stop Time Status Admin Diphenhydramine HCl 0 .STK-MED ONE 09/04 0702 D C (BENADRYL) .ROUTE Diphenhydramine HCl 25 MG ONCE ONE 09/04 0500 D C 09/04 (BENADRYL) PO 09/04 0501 0647 Blood Formation,Coagulation Sig/Elham Start time Last Medication Dose Route Stop Time Status Admin Enoxaparin Sodium 100 MG ONCE ONE 09/04 1115 DC 09/04 (LOVENOX) SUBQ 09/04 1116 1320 Heparin Sodium/ 500 ML .STK-MED ONE 09/04 0911 DC Sodium Chloride IV (HEPARIN 1000 UNITS/ NS 500ML) Clopidogrel Bisulfate 0 .STK-MED ONE 09/04 0702 DC (PLAVIX) .ROUTE Heparin Sodium 0 .STK-MED ONE 09/04 0559 DC (HEPARIN SODIUM) .ROUTE Heparin Sodium/ 1,000 ML .STK-MED ONE 09/04 055 9 DC Sodium Chloride IV (HEPARIN 1000 UNITS/ NS 500ML) Cardiovascular Drugs Sig/Elham Start time Last Medication Dose Route Stop Time Status Admin Atorvastatin Calcium 5 MG BEDTIME 09/04 2100 AC (LIPITOR) PO 10/04 2101 Hydralazine HCl 10 MG Q4H PRN PRN 09/04 1200 AC (APRESOLINE) IV 10/04 1201 Nitroglycerin 1 INCH Q6HR 09/04 1200 AC 09/04 (NITRO-BID UD) TRANSDERM 10/04 1201 1319 Metoprolol Tartrate 5 MG NOW ONE 09/04 1110 DC 09/04 (LOPRESSOR 5MG IJ) IV 09/04 1111 1320 Nitroglycerin 0 .STK-MED ONE 09/04 0930 DC (NITRO-BID UD) TRANSDERM Nitroglycerin 0 .STK-MED ONE 09/04 0906 DC (NITRO-BID UD) TRANSDERM Central Nervous System Agents Sig/Elham Start time Last Medication Dose Route Stop Time Status Admin Aspirin 325 MG DAILY 09/04 1400 AC (ASPIRIN) PO 10/04 1401 Fentanyl Citrate 50 MCG Q3H PRN PRN 09/04 1020 AC (SUBLIMAZE (C-II)) IV 10/04 1021 Propofol 100 ML .STK-MED ONE 09/04 1018 DC 08/24 2 (DIPRIVAN) IV 1023 Propofol 100 ML ASDIR 09/04 1015 CKD (DIPRIVAN) IV 10/04 1016 Aspirin 0 .STK-MED ONE 09/04 07 DC (CHILDREN'S ASPIRIN) .ROUTE Diazepam 0 .STK-MED ONE 09/04 0702 DC (VALIUM (C-IV)) .ROUTE Lidocaine 0 .STK-MED ONE 09/04 0559 DC (XYLOCAINE 1%) .ROUTE Aspirin 325 MG ONCE ONE 09/04 0500 DC (ASPIRIN) PO 09/04 0501 Diazepam 5 MG ONCE ONE 09/04 0500 DC 09/04 (VALIUM (C-IV)) PO 09/04 0501 0647 Diagnostic Agents Sig/Elham Start time Last Medication Dose Route Stop Time Status Admin Iopamidol 0 .STK-MED ONE 09/04 0559 DC (ISOVUE-370) .ROUTE Electrolytic, Caloric, And Marlon Sig/Elham Start time Last Medication Dose Route Stop Time Status Admin Furosemide 40 MG BID@0900,1700 09/04 1700 AC (LASIX) IV 10/04 1701 Dextrose/Water 12.5 GM ASDIR PRN 09/04 1110 AC (DEXTROSE 50% IN IV 10/04 1111 WATER) Dextrose/Water 25 GM ASDIR PRN 09/04 1110 AC (DEXTROSE 50% IN IV 10/04 1111 WATER) Furosemide 40 MG ONCE ONE 09/04 1015 DC 09/04 (LASIX) IV 09/04 1016 1104 Furosemide 0 .STK-MED ONE 09/04 0853 DC (LASIX) .ROUTE Sodium Chloride 1,000 ML Q10H 09/04 0500 DC (SODIUM CHLORIDE IV 10/03 0811 0.9%) Gastrointestinal Drugs Sig/Elham Start time Last Medication Dose Route Stop Time Status Admin Famotidine 20 MG BID 09/04 2100 AC (PEPCID) IV 10/04 2101 Hormones And Synthetic Substit Sig/Elham Start time Last Medication Dose Route Stop Time Status Admin Insulin Human Lispro See Dose Q4H 09/04 1530 AC (HumaLOG) Insts (1) SUBQ 10/04 1531 Insulin Human Regular 10 UNIT NOW ONE 09/04 120 0 DC 09/04 (HUMULIN R) IV 09/04 1201 1213 Insulin Human Lispro See Dose AC HS 09/04 1130 DC (HumaLOG) Insts (2) SUBQ 10/04 1131 Skin And Mucous Membrane Agent Sig/Elham Start time Last Medication Dose Route Stop Time Status Admin Chlorhexidine 15 ML Q12HR 09/04 2100 AC Gluconate MM 10/04 2101 (PERIDEX) Dose Instructions: (1)Insulin Human Lispro (HumaLOG): HIGH DOSE SLIDING SCALE (2)Insulin Human Lispro (HumaLOG): MEDIUM DOSE SLIDING SCALE Allergies: Coded Allergies: No Known Drug Allergies (09/04/19) Uncoded Allergies: No Known Contrast Allergies (05/12/09) No Known Drug Allergies (05/12/09) No Known Food Allergies (05/12/09) No Known Other Allergies (05/12/09) Review of Systems Free Text ROS Notes Free Text ROS Notes: unable to obtain Objective General VS/I O: Vital Signs: Date Time Temp Pulse Resp B/P B/P Pulse O2 O2 F low FiO2 Mean Ox Delivery Rate 09/04 1202 96 95 50 09/04 1010 104 147/72 94 50 09/04 0730 117 177/89 93 100 Patient Weight Weight (lb): Weight (oz): Weight (kg): Medications: Active Meds + DC'd Last 24 Hrs Atorvastatin Calcium 5 MG BEDTIME PO Chlorhexidine Gluconate 15 ML Q12HR MM Famotidine 20 MG BID IV Furosemide 40 MG BID@0900,1700 IV Insulin Human Lispro HIGH DOSE SLIDING SCALE Q4H SUBQ Aspirin 325 MG DAILY PO Hydralazine HCl 10 MG Q4H PRN PRN IV Insulin Human Regular 10 UNIT NOW ONE IV (DC) Nitroglycerin 1 INCH Q6HR TRANSDERM Insulin Human Lispro MEDIUM DOSE SLIDING SCALE AC HS SUBQ (DC) Enoxaparin Sodium 100 MG ONCE ONE SUBQ (DC) Dextrose/Water 12.5 GM ASDIR PRN IV Dextrose/Water 25 GM ASDIR PRN IV Metoprolol Tartrate 5 MG NOW ONE IV (DC) Fentanyl Citrate 50 MCG Q3H PRN PRN IV Propofol 100 ML .STK-MED ONE IV (DC) Furosemide 40 MG ONCE ONE IV (DC) Propofol 100 ML ASDIR IV (CKD) Nitroglycerin 0 .STK-MED ONE TRANSDERM (DC) Heparin Sodium/Sodium Chloride 500 ML .STK-MED O NE IV (DC) Nitroglycerin 0 .STK-MED ONE TRANSDERM (DC) Furosemide 0 .STK-MED ONE .ROUTE (DC) Aspirin 0 .STK-MED ONE .ROUTE (DC) Clopidogrel Bisulfate 0 .STK-MED ONE .ROUTE (DC) Diazepam 0 .STK-MED ONE .ROUTE (DC) Diphenhydramine HCl 0 .STK-MED ONE .ROUTE (DC) Heparin Sodium 0 .STK-MED ONE .ROUTE (DC) Heparin Sodium/Sodium Chloride 1,000 ML .STK-MED ONE IV (DC) Iopamidol 0 .STK-MED ONE .ROUTE (DC) Lidocaine 0 .STK-MED ONE .ROUTE (DC) Aspirin 325 MG ONCE ONE PO (DC) Diazepam 5 MG ONCE ONE PO (DC) Diphenhydramine HCl 25 MG ONCE ONE PO (DC) Sodium Chloride 1,000 ML Q10H IV (DC) Physical Exam General appearance: respiratory support Head/eyes: PERRLA Neck: no JVD Cardiovascular: no rub Respiratory: decreased breath sounds Abdomen: normal bowel sounds, soft Extremities: no swelling Neuro/PROCESS EXPERT: intubated, unable to assess Results Findings/Data: Laboratory Tests 09/04 09/04 09/04 09/04 1000 0907 0902 0746 Blood Gas Puncture Site RB R Brachial O2 Saturation (92.0 - 98.5 %) 94 ABG pH (7.35 - 7.45 mmHg) 7.32 L 7.286 L 7.257 L 7.156 *L ABG pCO2 (35.0 - 45.0 mmHg) 42.6 48.7 H 52.7 H 55.0 *H ABG pO2 (80.0 - 100.0 mmol/L) 119.4 H 82 36 *L 91 ABG HCO3 (20.0 - 26.0 mmol/L) 21.6 23.2 H 23.5 H 19.4 L ABG O2 Saturation (95.0 - 100.0 %) 98.1 94 L 5 8 *L ABG Base Excess (-3.0 - 3.0 mmol/L) -4.3 L -3 - 4 -9.0 L Reymundo Test (CHECK) NA N/A Ionized Calcium (1.12 - 1.24 MMOL/L) 1.11 L 1.1 4 Temperature (37 C) 37.0 O2 Delivery Device VENT Vent Vent Mode A/C CMV Vent Rate (/MIN) 20.0 16 FiO2 (%) 100 100 Tidal Volume (ml) 400 400 PEEP (cmH2O) 10.0 10 Laboratory Tests 09/04 09/04 09/04 09/04 1127 1127 1127 0907 Chemistry POC Sodium (137 - 144 MMOL/L) 137 Sodium (137 - 145 MMOL/L) 137 POC Potassium (3.1 - 4.8 MMOL/L) 5.3 H Potassium (3.5 - 5.1 MMOL/L) 5.3 H Chloride (98 - 107 MMOL/L) 100 Carbon Dioxide (22 - 30 MMOL/L) 24 Anion Gap (14 - 24 MMOL/L) 18 BUN (7 - 17 MG/DL) 26 H Creatinine (0.52 - 1.04 MG/DL) 1.30 H Glomerular Filtr Rate 40 Glucose (74 - 106 MG/DL) 462 *H POC Glucose (60 - 99 MG/DL) 474 *H Mean Blood Glucose (70 - 110 MG/DL) 252 H Hemoglobin A1c (4.8 - 5.9 %) 10.4 H Lactic Acid (0.7 - 2.1 MMOL/L) 2.4 H Calcium (8.4 - 10.2 MG/DL) 9.1 Phosphorus (2.5 - 4.5 MG/DL) 4.9 H Magnesium (1.6 - 2.3 MG/DL) 1.9 Total Bilirubin (0.2 - 1.3 MG/DL) 0.4 AST (14 - 36 UNITS/L) 78 H ALT (9 - 52 UNITS/L) 92 H Total Alk Phosphatase (38 - 126 UNITS/L) 106 Troponin I (0.012 - 0.033 NG/ML) 0.179 *H Total Protein (6.3 - 8.2 G/DL) 7.7 Albumin (3.5 - 5.0 G/DL) 4.4 LDL Cholesterol (100 - 129 mg/dL) 112 Procalcitonin (NG/ML) < 0.05 09/04 09/04 09/04 0902 0742 0620 Chemistry POC Sodium (137 - 144 MMOL/L) 136 L Sodium (137 - 145 MMOL/L) 138 POC Potassium (3.1 - 4.8 MMOL/L) 5.4 H Potassium (3.5 - 5.1 MMOL/L) 4.5 Chloride (98 - 107 MMOL/L) 103 Carbon Dioxide (22 - 30 MMOL/L) 25 Anion Gap (14 - 24 MMOL/L) 15 BUN (7 - 17 MG/DL) 24 H Creatinine (0.52 - 1.04 MG/DL) 1.10 H Glomerular Filtr Rate 48 Glucose (74 - 106 MG/DL) 293 H POC Glucose (60 - 99 MG/DL) 451 *H POC Lactic Acid (0.4 - 2.0 MMOL/L) 4.60 *H Calcium (8.4 - 10.2 MG/DL) 9.4 Magnesium (1.6 - 2.3 MG/DL) 1.7 Triglycerides (MG/DL) 167 Cholesterol (<200 MG/DL) 195 LDL Cholesterol Measurd (0 - 99 MG/DL) 109 H HDL Cholesterol (40 - 59 MG/DL) 61 H Laboratory Tests 09/04 09/04 1127 0620 Coagulation INR (0.8 - 1.1) 1.0 1.0 APTT (22.0 - 33.0 SECONDS) 24.1 25.3 PT Patient/Control Mix (9.6 - 11.6 SECONDS) 10 .8 10.7 Fibrinogen (185 - 512 MG/DL) 359 D-Dimer (0 - 0.49 MG/L FEU) 3.76 H Laboratory Tests 09/04 09/04 09/04 1127 1127 0620 Hematology WBC (3.8 - 9.8 K/MM3) 18.3 H 11.4 H RBC (3.58 - 4.97 M/MM3) 4.49 4.47 Hgb (11.2 - 14.9 G/DL) 10.9 L 10.8 L Hct (33.2 - 43.5 %) 36.2 35.9 MCV (80.7 - 99.1 fL) 81 80 L MCH (27.0 - 34.1 pg) 24.3 L 24.2 L MCHC (32.2 - 35.7 %) 30.1 L 30.1 L RDW (12.1 - 15.2 %) 17.9 H 18.1 H Plt Count (129 - 368 K/MM3) 426 H 411 H 405 H MPV (7.4 - 10.4 fl) 10.0 9.7 Neut % (Auto) (43 - 75 %) 88.1 H 76.8 H Lymph % (Auto) (14 - 44 %) 3.9 L 11.2 L [place] % (Auto) (4 - 13 %) 6.0 6.9 Eos % (Auto) (0 - 6 %) 0.2 3.9 Baso % (Auto) (0 - 2 %) 0.3 0.4 Neut # (Auto) (2.0 - 7.6 K/mm3) 16.12 H 8.76 H Lymph # (Auto) (1.0 - 3.8 K/mm3) 0.71 L 1.28 [place] # (Auto) (0.1 - 0.8 K/mm3) 1.10 H 0.79 Eos # (Auto) (0.0 - 0.2 K/mm3) 0.03 0.45 H Baso # (Auto) (0.0 - 0.2 K/mm3) 0.06 0.05 Immature Gran % (0.0 - 2.0 %) 1.5 0.8 Nucleated RBC % (0 - 1.0 %) 0.0 0.0 Nucleated RBCs # (Man) (0.0 - 0.1 K/mm3) 0.00 0.00 Laboratory Tests 09/04 1300 Urines Urine Color (YELLOW) YELLOW Urine Appearance (CLEAR) CLEAR Urine pH (5.0 - 9.0) 5.0 Ur Specific [place] (1.003 - 1.030) 1.010 Urine Protein (NEGATIVE MG/DL) NEGATIVE Urine Glucose (UA) (NORMAL MG/DL) 1000 H Urine Ketones (NEGATIVE MG/DL) NEGATIVE Urine Blood (NEGATIVE Jarrod/mm3) 25 H Urine Nitrite (NEGATIVE) NEGATIVE Urine Bilirubin (NEGATIVE MG/DL) NEGATIVE Urine Urobilinogen (NORMAL MG/DL) NORMAL Ur Leukocyte Esterase (NEGATIVE /mm3) NEGATIVE Radiology data: Recent Impressions: RADIOLOGY - XR CHEST 1V 09/04 0709 Report Impression - Status: SIGNED Entered: 09/04/2019 0833 IMPRESSION: Bilateral hazy diffuse airspace opacity, right g reater than left, may represent asymmetric pulmonary edema. Recommend continued follow-up. Impression By: Jerry - Madonna Guzman Diagnosis, Assessment Plan Free Text DxA P Notes Free Text DxA P Notes: 1. DINA on CKD -likely ischemic/hemodynamic due to CPA -may worsen due to IV contrast from LHC + Lasix for hyperkalemia treatment -would keep patient euvolemic for now, avoid NSA IDs, renally dose all meds 2. Acute on chronic systolic and diastolic heart failure -does not appear grossly volume overload and syed tilating well currently -would hold off on diuretic due to #1 for now 3. Type 2 DM with DM nephropathy -DM management per primary team 4. HTN -restart home meds except GURU/ARB due to #1 5. CAD s/p LHC and stenting -per cardiology 6. Hypothyroidism -management per primary team 7. Anemia of CKD -check Iron panel Thank you Dr. Smith for this consult, jonathan styles patient with medical team. Total critical care time > 30 min Electronically Signed by Carmita Alva MD on 09/05 at 1610 RPT #:[id number] END OF REPORT 2019-09-04 12:03:00-00:00 [id number] [facility] [id number] [place], [place] [id number] PATIENT NAME: ZARIA MURRELL ADMIT DATE: 9 ACCOUNT NO: [id number] ROOM NO: Z.[id number] AGE: 79 REPORT TYPE: ECHOCARDIOGRAM SEX: F ADMITTING PHYSICIAN:Amos Conway MD ATTENDING PHYSICIAN:Amos Conway MD *[facility]* [address] [place], [place] [id number] Transthoracic Echocardiogram Patient: Zaria Murrell Study Date: 09/04/2019 BP: 150 / 72 Location: [facility] URN: [id number] : 1940 Age: 79 Height: 0 in / 0 cm Gender: F Weight: 0 l b / 0 kg BMI/BSA: / *Ordering Physician: * Amos Conway MD *Interpreting Physician: * Amos Conway MD *Landcare Officer: * Luz Marina Napoles, VIOLAT Indications: Congestive Heart Failure. Study data: Transthoracic echocardiogram. Proced ure: Transthoracic echocardiography was performed. Images were obta ined using a AboutOne cardiac ultrasound machine. Image quality was suboptimal . Complete 2D, complete spectral Doppler, and color Doppler. Location: [facility] Patient status: Inpatient. Patient room number: 1. Study status: Routine. Rhythm: Normal sinus rhythm. Findings Left ventricle: The cavity size is normal. Wall thickness is mildly increased. Systolic function is severely reduced . The estimated ejection fraction is 20-24%. Regional wall motion abnorma lities: Severe hypokinesis. Doppler parameters are consistent w ith abnormal left ventricular relaxation (grade 1 diastolic dysfun ction). Right ventricle: Poorly visualized. The cavity s ize is normal. Systolic function is mildly reduced. Left atrium: The atrium is normal in size. PATIENT NAME: ZARIA MURRELL 6825 Right atrium: The atrium is normal in size. Cath eter is noted in inferior vena cava to right atrium. Atrial septum: No defect or patent foramen ovale is identified. Aorta: The aortic root is not dilated. Aortic valve: The valve is trileaflet. The leafl ets are mildly calcified. The findings are consistent with mode rate stenosis. Stenosis is probably underestimated due to poor left vent ricular function. There is no regurgitation. Mitral valve: The annulus is mildly calcified. T he leaflets are mildly thickened. There is moderate regurgitation. Tricuspid valve: Not well visualized. There is m ild regurgitation. Pulmonic valve: Not well visualized. There is no regurgitation. Pericardium: There is no pericardial effusion. Systemic veins: Inferior vena cava: The vessel is normal in size . Measurements Left ventricle Value Ref Aortic valve Value Ref TRACE, LAX 5.0 cm 3.8 - 5.2 Leaflet sep, MM 1.39 cm ----- ESD, LAX 4.5 cm 2.2 - 3.5 Peak v, S 2.6 m/sec ----- FS, LAX 10 % 27 - 45 Mean v, S 1.95 m/sec ----- PW, ED 1.3 cm 0.6 - 0.9 VTI, S 47.2 cm ----- PW, ES 1.5 cm Mean grad, S 17.2 mm Hg ----- IVS/PW, ED 1.04 Peak grad, S 27.0 mm Hg ----- EF 21 % 54 - 74 LVOT/AV, VTI ratio 0.35 ----- IVRT 100 ms ANNA, VTI 1.19 cm 2 ----- LVOT/AV, Vpeak ratio 0.33 ----- LVOT Value Ref ANNA, Vmax 0.96 cm 2 ----- Diam, S 1.82 cm Area 2.6 cm 2 Mitral valve Value Ref Peak eladia, S 0.85 m/sec Peak E 1.35 m/sec ----- Mean eladia, S 0.67 m/sec Mean v, D 1.12 m/sec ----- VTI, S 16.7 cm VTI leaflet coapt 26.3 cm ----- Peak grad, S 3 mm Hg Mean grad, D 5.5 mm Hg ----- Mean grad, S 2 mm Hg Peak grad, D 10.0 mm Hg ----- PATIENT NAME: ZARIA MURRELL 6825 SV 44 ml Qs 4.2 L/min Pulmonic valve Value Ref DC v, ED 0.96 m/sec ----- Ventricular septum Value Ref IVS, ED 1.3 cm 0.6 - 0.9 Tricuspid valve Value Ref IVS, ES 1.5 cm TR peak v 3.1 m/sec <=2.8 Peak RV-RA grad, S 38 mm Hg ----- Right ventricle Value Ref TRACE, LAX 1.9 cm Aortic root Value Ref Pressure, S 48 mm Hg Root diam 2.2 cm ----- Root diam, ED MM 2.67 cm ----- Left atrium Value Ref AP dim, ES 3.27 cm 2.70 - 3.80 Pulmonary artery Value Ref AP dim, ES MM 4.0 cm 2.7 - 3.8 Pressure, S 48.3 mm Hg ----- LA/Ao root ratio, MM 1.48 Systemic veins Value Ref Estimated CVP 10 mm Hg ----- Conclusions Summary: 1. Left ventricle: The cavity size is normal. Wa ll thickness is mildly increased. Systolic function is severely reduce d. The estimated ejection fraction is 20-24%. Severe hypokinesis . Doppler parameters are consistent with abnormal left ventricular r elaxation (grade 1 diastolic dysfunction). 2. Right ventricle: Systolic function is mildly reduced. The RV pressure during systole by Doppler is 48 mm Hg. 3. Right atrium: Catheter is noted in inferior v emerald cava to right atrium. 4. Aortic valve: The findings are consistent wit h moderate stenosis. Stenosis is probably underestimated due to poor left ventricular function. The mean systolic gradient is 17.2 mm Hg. The peak systolic gradient is 27.0 mm Hg. 5. Mitral valve: The annulus is mildly calcified . The leaflets are mildly thickened. There is moderate regurgitati on. 6. Tricuspid valve: There is mild regurgitation. Prepared and electronically signed by PATIENT NAME: ZARIA MURRELL 6825 Amos Conway MD 09/04/2019 12:03 at 1204 PATIENT NAME: ZARIA MURRELL 6825 2019-09-04 10:05:00-00:00 [facility] ([facility]) Critical Care Consult Note REPORT#:[id number] REPORT STATUS: Signed DATE:09/04/19 TIME: 1005 PATIENT: ZARIA MURRELL UNIT #: [id number] ROOM/BED: [address] : 42 AGE: 79 SEX: F ATTEND: Ryne Conway MD ADM AUTHOR: Geremias Hammer DO * ALL edits or amendments must be made on the [employer]/computer document * History of Present Illness HPI Requesting clinician: DR Huggins Reason for consult: 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 While waiting in the left pr eoperative patient suffered a cardiopulmonary arrest at approximately 7 AM. ACLS/CPR was init iated by the emergency department team and from report to receive l asted approximately 11 minutes before the return of spontaneous circulation. Approximately 2 epis we re given. The patient was intubated at the time I was left in the [facility] Worker pre-holding area until she was taken to the [facility]er by the editorial assistant. I rec eived a brief report from the editorial assistant who informed me that the patient rowe s an ejection fraction of approximately 20% and global hypokinesis there are several LAD lesions however he did not think it was indicative or the culpri t lesion in the patient's cardiopulmonary arrest. From review of the history a nd physical dictated on September 03, 2019 the patient 's past medical history sign ificant for ongoing dyspnea that has been worsening, pulmonary hypertension with levels measuring 40 to 50%, moderate mitral regurgitation, moderate aortic stenosis,. The pa christina also had a nuclear medicine stress test perform ed and revealed an ejection fraction of 29% however no reversible ischemia was noted. The patient wa s noted to have a large anterior scar on a nuclear medicine stress test. Further medical history significant for hypertension , dyslipidemia, diabetes, chronic bronchitis, COPD, asthma, hypothyroidism, chronic kidney disease, osteoarthritis, and GERD. Past surgical history significant for ch olecystectomy, right knee replacement, tonsillectomy, appendectomy and postop Allergies: No known drug allergies. Social history from the repo rted history and physical the patient does not smoke , does not use alcoholic beverages, and does not use illicit drugs. Goals of care: I was able to talk the next of kin French Carlisle ([phone]) and his at the bedside in the ICU. They were listed as the next of kin on the patient's facesheet. The y stated that they are not blood relatives but they were very close friends. They stated that the pa christina does not have any immediate family in [place], and they are the [facility] [place] family. I informed the events that occurred earlier this morning regarding the cardiopulmonary arrest and the results of the ca rdiac cat. We also discussed the plan of care which inclu ramos to possibly extubate the patient sometime later today she remains able to interact with us when the sedation is weaned. History - Adult longitudinal Allergies: Coded Allergies: No Known Drug Allergies (09/04/19) Uncoded Allergies: No Known Contrast Allergies (05/12/09) No Known Drug Allergies (05/12/09) No Known Food Allergies (05/12/09) No Known Other Allergies (05/12/09) Review of Systems Unable to obtain due to: intubated Objective Physical Exam: VS/I O: Last Documented: Result Date Time Pulse Ox 93 09/04 730 B/P 177/89 09/04 730 FiO2 100 09/04 730 Pulse 117 09/04 730 Medications: Active Meds + DC'd Last 24 Hrs Chlorhexidine Gluconate 15 ML Q12HR MM Famotidine 20 MG BID IV Nitroglycerin 1 INCH Q6HR TRANSDERM Nitroglycerin 0 .STK-MED ONE .ROUTE (DC) Heparin Sodium/Sodium Chloride 500 ML .STK-MED O NE IV (DC) Nitroglycerin 0 .STK-MED ONE .ROUTE (DC) Furosemide 0 .STK-MED ONE .ROUTE (DC) Aspirin 0 .STK-MED ONE .ROUTE (DC) Clopidogrel Bisulfate 0 .STK-MED ONE .ROUTE (DC) Diazepam 0 .STK-MED ONE .ROUTE (DC) Diphenhydramine HCl 0 .STK-MED ONE .ROUTE (DC) Heparin Sodium 0 .STK-MED ONE .ROUTE (DC) Heparin Sodium/Sodium Chloride 1,000 ML .STK-MED ONE IV (DC) Iopamidol 0 .STK-MED ONE .ROUTE (DC) Lidocaine 0 .STK-MED ONE .ROUTE (DC) Aspirin 325 MG ONCE ONE PO (DC) Diazepam 5 MG ONCE ONE PO (DC) Diphenhydramine HCl 25 MG ONCE ONE PO (DC) Sodium Chloride 1,000 ML Q10H IV General appearance: obese, respiratory support ( ventilator), sedated, alert, able to interact Head/Eyes: atraumatic, normocephalic, PERRLA, EO MS, clear cornea ENT: intubated, normal ear left, normal ear righ t, normal nose Neck: no JVD, no lymphadenopathy, no masses or s welling Cardiovascular: tachycardia, normal heart sounds , normal S1 S2, no murmur Respiratory/Chest: rales, symmetric expansion, n o distress, on the ventilator Abdomen: soft, non-tender, no distention, no gua rding, obese Extremities: no clubbing, no cyanosis, no edema, right groin sheaths Musculoskeletal: normal inspection Neuro/PROCESS EXPERT: alert, follows commands Skin: dry, intact, normal color, normal temperat ure, no rash Results: Findings/Data: Laboratory Tests 09/04/19 0620: [Embedded Image Not Available] Laboratory Tests 09/04 09/04 09/04 09/04 1000 0907 0902 0746 Blood Gas Puncture Site RB R Brachial O2 Saturation (92.0 - 98.5 %) 94 ABG pH (7.35 - 7.45 mmHg) 7.32 L 7.286 L 7.257 L 7.156 *L ABG pCO2 (35.0 - 45.0 mmHg) 42.6 48.7 H 52.7 H 55.0 *H ABG pO2 (80.0 - 100.0 mmol/L) 119.4 H 82 36 *L 91 ABG HCO3 (20.0 - 26.0 mmol/L) 21.6 23.2 H 23.5 H 19.4 L ABG O2 Saturation (95.0 - 100.0 %) 98.1 94 L 58 *L ABG Base Excess (-3.0 - 3.0 mmol/L) -4.3 L -3 - 4 -9.0 L Reymundo Test (CHECK) NA N/A Ionized Calcium (1.12 - 1.24 MMOL/L) 1.11 L 1.1 4 Temperature (37 C) 37.0 O2 Delivery Device VENT Vent Vent Mode A/C CMV Vent Rate (/MIN) 20.0 16 FiO2 (%) 100 100 Tidal Volume (ml) 400 400 PEEP (cmH2O) 10.0 10 Laboratory Tests 09/04 09/04 09/04 09/04 0907 0902 5108 0620 Chemistry POC Sodium (137 - 144 MMOL/L) 137 136 L Sodium (137 - 145 MMOL/L) 138 POC Potassium (3.1 - 4.8 MMOL/L) 5.3 H 5.4 H Potassium (3.5 - 5.1 MMOL/L) 4.5 Chloride (98 - 107 MMOL/L) 103 Carbon Dioxide (22 - 30 MMOL/L) 25 Anion Gap (14 - 24 MMOL/L) 15 BUN (7 - 17 MG/DL) 24 H Creatinine (0.52 - 1.04 MG/DL) 1.10 H Glomerular Filtr Rate 48 Glucose (74 - 106 MG/DL) 293 H POC Glucose (60 - 99 MG/DL) 474 *H 451 *H POC Lactic Acid (0.4 - 2.0 MMOL/L) 4.60 *H Calcium (8.4 - 10.2 MG/DL) 9.4 Magnesium (1.6 - 2.3 MG/DL) 1.7 Triglycerides (MG/DL) 167 Cholesterol (<200 MG/DL) 195 LDL Cholesterol Measurd (0 - 99 MG/DL) 109 H HDL Cholesterol (40 - 59 MG/DL) 61 H Laboratory Tests 09/04 0620 Coagulation INR (0.8 - 1.1) 1.0 APTT (22.0 - 33.0 SECONDS) 25.3 PT Patient/Control Mix (9.6 - 11.6 SECONDS) 10. 7 Laboratory Tests 09/04 0620 Hematology WBC (3.8 - 9.8 K/MM3) 11.4 H RBC (3.58 - 4.97 M/MM3) 4.47 Hgb (11.2 - 14.9 G/DL) 10.8 L Hct (33.2 - 43.5 %) 35.9 MCV (80.7 - 99.1 fL) 80 L MCH (27.0 - 34.1 pg) 24.2 L MCHC (32.2 - 35.7 %) 30.1 L RDW (12.1 - 15.2 %) 18.1 H Plt Count (129 - 368 K/MM3) 405 H MPV (7.4 - 10.4 fl) 9.7 Neut % (Auto) (43 - 75 %) 76.8 H Lymph % (Auto) (14 - 44 %) 11.2 L [place] % (Auto) (4 - 13 %) 6.9 Eos % (Auto) (0 - 6 %) 3.9 Baso % (Auto) (0 - 2 %) 0.4 Neut # (Auto) (2.0 - 7.6 K/mm3) 8.76 H Lymph # (Auto) (1.0 - 3.8 K/mm3) 1.28 [place] # (Auto) (0.1 - 0.8 K/mm3) 0.79 Eos # (Auto) (0.0 - 0.2 K/mm3) 0.45 H Baso # (Auto) (0.0 - 0.2 K/mm3) 0.05 Immature Gran % (0.0 - 2.0 %) 0.8 Nucleated RBC % (0 - 1.0 %) 0.0 Nucleated RBCs # (Man) (0.0 - 0.1 K/mm3) 0.00 Microbiology: 09/04 910 BLOOD: Blood Culture - COLB 09/04 910 BLOOD: Blood Culture - COLB 09/04 910 BLOOD: Blood Culture - COLB 09/04 910 BLOOD: Blood Culture - COLB Radiology data: Recent Impressions: RADIOLOGY - XR CHEST 1V 09/04 0709 Report Impression - Status: SIGNED Entered: 09/04/2019 0833 IMPRESSION: Bilateral hazy diffuse airspace opacity, right g reater than left, may represent asymmetric pulmonary edema. Recommend continued follow-up. Impression By: Jerry Guzman Results: labs reviewed, vital signs stable, rhyt hm personally rev'd, x-ray personally reviewed, current med profile rev'd Diagnosis, Assessment Plan Diagnosis, Assessment Plan Free Text A P: 79-year-old female presents to the ICU after suffering a cardiopulmonary arrest in the [facility] waiting area earlier this morning. The patient has a history of congestive heart failure, hypertension, diabetes , obesity, aortic stenosis, mitral regurgitation, hyperlipidemia. Af ter the cardiac arrest the patient was able to interact and follow commands, therefore she is not a candidate for targeted temperature management 1. Cardiopulmonary arrest with successful resusc itation/acute systolic heart failure/coronary artery disease/hyperlipidemia The patient was down for approximately 1 1 minutes before return of spontaneous circulation. The patient was taken emergently to the [facility] Service Floor Worker after cardiopulmonary arrest she was found to have sev eral cardiac lesions however these were not addressed by the cardiology service that they were thought not to be the culprit lesion. The p atient does have an ejection fraction possibly 20%, and the pulmonary edema and the chest x-ray is c onsistent with this. We will continue aggressive diuresis and control the patient's blood pressure. We will continue to monitor her over all hemodynamic and respiratory status over the next few hours. We will start aspirin 325 mg, Lipitor 5 mg at bedtime and Lasix 40 mg IV every 12. An echocardiogram was obtained w hich should be read by the cardiology service. Disconti nue all IV fluids as the patient is an active heart failure and IV fluids may exacerbate the situati on further further recommendations to follow the case unfolds. 2. Acute respiratory failure with hypoxia The patient has been weaned on the mecha nical ventilation we will follow-up in the [place]. The patient received approximately 80 mg of Lasix and continue to monitor the patient's diures is status.. The patient is following commands and I may consider extubation in the near future. 3. Uncontrolled diabetes The patient will be given 10 units of insulin now and receive high-dose sliding scale. We will continue to monitor the patient's blood sugar levels approximately every 6-8 hours.. If the b lood sugar remains elevated around 500 we will consider starting an insulin drip 4. Uncontrolled hypertension We will resume the patient's home medication whi ch includes a beta-hermann, diuretic, and possibly GURU inhibitor based on th e patient's creatinine. 5. Hyperkalemia/chronic kidney disease stage III The patient has receive Lasi x which I hope will decrease the patient's potassium level. We will get a follow-up potassium level l ater today. The patient is currently diuresing very well with clear yellow urine. We will continue to monitor the patient's creatinine level as well a s the patient just underwent cardiac cat and it is expected that they may be arise in the creatinine especially the patient has a history of chronic kidney disease. Unfortunately cannot give any IV fluids at this time as the linnea vasquez is an active acute systolic heart failure. IV fluids at this time c ould exacerbate the patient's hypoxia and worsening respiratory failure. 6. Goals of care: Presumed full code at this leonid e the patient status post successful resuscitation aft er cardiopulmonary arrest. The patient is awake and able to follow commands therefore she does not m eet criteria for targeted temperature management. I also informed the next of kin that was listed on the facesheet French Carlisle ([phone]) at the bedside in the ICU Further recommendations to follow the case unfol ds The patient was seen multiple times in the [facility] Worker and in the ICU Critical care time 120 minutes Code Status/Resusc. Discussion Code status: full code (presumed) Quality Medications Current medication review: I attest that the foregoing medication list in t he medical record is true, accurate, and complete to the best of my knowled ge. VTE Prophylaxis VTE prophylaxis initiated: yes Heart Failure:DC on BB,GURU/ARB LVEF: < 40% Beta hermann Rx at DC: yes; medication: ACEI/ARB Rx at DC: yes; medication: at [facility] #:[id number] END OF REPORT 2019-09-04 09:16:00-00:00 [id number] [place] [address] PATIENT NAME: ZARIA MURRELL ADMIT DATE: 9 ACCOUNT NO: [id number] ROOM NO: AGE: 79 REPORT TYPE: CARDIAC CATHETERIZATION REPORT SEX: F ADMITTING PHYSICIAN: ATTENDING PHYSICIAN:Amos Conway MD PROCEDURE DATE: 09/04/2019 CARDIOLOGY PROCEDURE MACHINE HEEL SEAT FITTER: Amos Conway MD. TITLE OF THE PROCEDURE: Right and left heart cat heterization. INDICATION FOR THE PROCEDURE: Dyspnea, respirato ry failure, coronary artery disease, cardiomyopathy, possible ischemia. ESTIMATED BLOOD LOSS: Minimal. COMPLICATIONS: None. CONTRAST: 70 mL. ANESTHESIA: Conscious sedati on with Versed and fentanyl, 1% lidocaine for local anesthesia. FINAL DIAGNOSES: Single-vess el coronary artery disease, dilated cardiomyopathy, ejection fraction around 20%, mild aorti c stenosis, pulmonary hypertension and elevated filling pressures. PROCEDURE IN DETAIL: As mentioned above, the pat ient came in with worsening dyspnea this morning. She di d consent to the procedure and before she was taken to the greenhouse laborer, she had a respiratory arrest fo llowed by cardiac arrest. She was resuscitated, intubated, continued to be hem odynamically stable. She was brought to the greenhouse laborer for cardiac cath eterization. Using standard techniques and fluoroscopy, access to t he right common femoral vein was done and the right common femoral artery and 6- [place] sheath was placed in the right common femoral artery and 7-[place] sheath placed in the right c ommon femoral vein. Left coronary angiogram showed 30% plaquing in the pr oximal LAD, 60% to 70% in the mid LAD, 30% distal LAD. The circumflex had a 45 % mid lesion. Right coronary artery was dominant with 30% plaques. Left ventr icular angiogram showed an ejection fraction less than 25% with left ventricular end-diastolic pressure of 33. Small mild aortic valve gradient and severe global hypokinesis, enlarged heart. Right heart catheterization showe d RA pressure of 27/18/16. RV pressure 57/15/21, PA pressure 48/26/36, wedge pr essure 34/37/29. The saturation of the PA was 68%, saturation of the artery was 94%. Va lve area did not show significant aortic stenosis. The right groin was sealed using Angio-Seal. The right venous sheath was conn ected to the [place] and sutured and will be used PATIENT NAME: ZARIA MURRELL 6825 in the ICU. Using the Jose F cardiac output, the v alve area measured 0.9 with a mean gradient of 23.25. Cardiac output was 3.94. I still think the valve area is not the culprit here and her LAD lesion is not the culprit here. I think she has congestive heart failure , systolic, with cardiomyopathy. She needs diuresis and ICU admission and we kitty l get an echocardiogram to assess the aortic valve. This was all discussed in de tail with the ICU team. I was not able to reach the family yet and the patient is intubated. Dictated By: Amos Conway MD WT: CATH:MELISSA/LEANDRA/NTS Conf#: [id number]/DID#: [id number] Authenticated by Amos Conway MD On 08/24 09:47:48 AM at 0948 PATIENT NAME: ZARIA MURRELL 6825 2019-09-04 08:24:00-00:00 [id number] [place] [address] PATIENT NAME: ZARIA MURRELL ADMIT DATE: 9 ACCOUNT NO: [id number] ROOM NO: Z.I04 AGE: 79 REPORT TYPE: HISTORY AND PHYSICAL SEX: F ADMITTING PHYSICIAN:Vani Smith MD ATTENDING PHYSICIAN:Vani Smith MD ADMISSION DATE: 09/04/2019 ADDENDUM TO THE HISTORY AND PHYSICAL REPORT: Confirmation #[id number], DID #[id number]. The addendum says that the patient came in [facility] this morning for her cardiac catheterization. She noticed worsening d yspnea getting here and when she got to the greenhouse laborer [facility] area, she was found to be hypoxic. She was placed on oxygen. She was evaluated. Her labs were obta ined and while getting her evaluation done before the procedure, luisana stuart had a respiratory arrest followed by cardiac arrest. She was successfully resuscitate d and intubated. She is back in sinus rhythm. Her EKG is unchanged, continues to be in sinus tachycardia. She is waking up, but given that we are not sure about her cardiac status and her significant indication for cardiac catheteri zation. We will go ahead and proceed with emergent cardia c catheterization to assess her coronaries and then the patient will be admitted to the ICU. We were trying to contact the family. This was all discussed in de tail with the family service worker, the patient's care team. Dictated By: Amos Conway MD WT: HP:RAJESH/LEANDRA/ARMANDO Conf#: [id number]/DID#: [id number] Authenticated by Amos Conway MD On 08/24 01:18:51 PM at 1319 PATIENT NAME: ZARIA MURRELL 6825 2019-09-04 07:19:00-00:00 [id number] [place] [address] PATIENT NAME: ZARIA MURRELL ADMIT DATE: 9 ACCOUNT NO: [id number] ROOM NO: AGE: 79 REPORT TYPE: ELECTROCARDIOGRAM SEX: F ADMITTING PHYSICIAN: ATTENDING PHYSICIAN:Amos Conway MD Order: [id number] Test Reason : S/P CODE Test Date/Time Stamp: FriSep 04 2019 07:19:01 Blood Pressure : / mmHG Vent. Rate : 120 BPM Atrial Rate : 120 BPM P-R Int : 150 ms QRS Dur : 084 ms QT Int : 316 ms P-R-T Axes : 070 034 204 degree s QTc Int : 446 ms Sinus tachycardia with frequent premature ventri cular complexes and fusion complexes Possible Left atrial enlargement Left ventricular hypertrophy with repolarization abnormality Abnormal ECG When compared with ECG of 04-SEP-2019 07:18, premature ventricular complexes are now present Confirmed by AMOS CONWAY ([id number]) on 09/04/2019 9:51:01 AM Referred By: Amos Conway Confirmed by:AMOS LARKIN at 0951 PATIENT NAME: ZARIA MURRELL 6825 2019-09-04 06:36:00-00:00 [id number] [place] [id number] PATIENT NAME: ZARIA MURRELL ADMIT DATE: 9 ACCOUNT NO: [id number] ROOM NO: AGE: 79 REPORT TYPE: ELECTROCARDIOGRAM SEX: F ADMITTING PHYSICIAN: ATTENDING PHYSICIAN:Amos Conway MD Order: [id number] Test Reason : LEFT HEART CATHETERIZATION Test Date/Time Stamp: FriSep 04 2019 06:36:28 Blood Pressure : / mmHG Vent. Rate : 122 BPM Atrial Rate : 122 BPM P-R Int : 146 ms QRS Dur : 074 ms QT Int : 300 ms P-R-T Axes : 071 064 119 degree s QTc Int : 427 ms Sinus tachycardia Possible Left atrial enlargement ST and T wave abnormality, consider lateral isch emia Abnormal ECG No previous ECGs available Confirmed by AMOS CONWAY ([id number]) on 09/04/2019 8:14:36 AM Referred By: Amos Conway Confirmed by:AMOS LARKIN at 0814 PATIENT NAME: ZARIA MURRELL 6825 2019-09-03 07:06:00-00:00 [id number] [place] [address] PATIENT NAME: ZARIA MURRELL++ ADMIT DATE: ACCOUNT NO: [id number] ROOM NO: AGE: 79 REPORT TYPE: PREOP HISTORY AND PHYSICAL SEX: F ADMITTING PHYSICIAN: ATTENDING PHYSICIAN:Amos Conway MD PATIENT NAME: ZARIA MURRELL++ ADMIT DATE:2018 ADMISSION DATE: 09/04/2019 ADMISSION HISTORY AND PHYSICAL MACHINE HEEL SEAT FITTER: Amos Conway MD REASON FOR ADMISSION: Cardiac catheterization fo r angina, dyspnea, cardiomyopathy, and aortic stenosis to assess fo r possible revascularization. HISTORY OF PRESENT ILLNESS: Zaria is a 79-year-old lady, who was a new patient to my practice, evaluated with worsening dyspnea and multiple cardiovascular risk factors. The patient has not been diagnosed with coronary artery disease in the past. She underwent noninvasive evaluatio n with an echocardiogram that showed mild mitral regurgita tion, moderate aortic stenosis, ejection fraction of 40% to 45%, and pulmonary hypertension 4 0 to 50. She had a nuclear stress test that showed ejection fraction to be 29% that anthony wed a large anterior scar. There was no evidence of reversibility and given these findings and the patient's symptoms and risk factors, she is here for cardiac catheterization to assess her coronaries and va lve for possible revascularization. The patient was placed on medical therapy. There is no history o f any previous cardiac evaluation before. PAST MEDICAL HISTORY: Remarkable for hypertensio n, hyperlipidemia, diabetes, chronic bronchitis, COPD, asthma, hypoth yroidism, chronic renal insufficiency, osteoarthritis, and acid reflux. PAST SURGICAL HISTORY: She h as had cholecystectomy in 2000, knee replacement in 2012, tonsillectomy in 1949, appendectomy in , and in 1960. ALLERGIES: NO KNOWN DRUG ALLERGIES. MEDICATIONS: Losartan 100 mg daily, Janessa brex 200 mg capsule daily, glimepiride 1 mg b.i.d., metformin 500 mg 3 to 5 times a day , omeprazole 40 mg daily, pantoprazole 20 mg daily, spironolactone 50 mg d aily, Thyroid 90 mg daily, eyedrops, furosemide 40 mg daily, and aspirin 81 mg daily. SOCIAL HISTORY: There is no history of smoking, alcohol, or street drug use. The patient is retired. FAMILY HISTORY: Negative for premature atheroscl erosis. PATIENT NAME: ZARIA MURRELL+Leidy [id number] REVIEW OF SYSTEMS: Remarkable for insomnia, dry mouth, wheezing, nausea, vomiting, and the above-ment ioned cardiac symptoms. No acute GI or symptoms. No TIAs or strokes. PHYSICAL EXAMINATION: GENERAL: Reveals a pleasant elderly lady, in no acute distress. VITAL SIGNS: Blood pressure 150/73, pulse 80 and regular, respiratory rate 18 unlabored, and temperature afebrile. HEENT: Head is atraumatic and normocephalic. Eye s and ENT examination are within normal for age. NECK: Supple. Elevated jugular venous pressure i s noted. No bruits. Normal upstroke. LUNGS: Decreased air entry, otherwise clear and resonant. HEART: Regular rate and rhythm with III/ systo lic ejection murmur at the aortic area. No gallops. ABDOMEN: Soft. No tenderness, no organomegaly, a nd no masses or bruits. EXTREMITIES: 2+ edema and 2+ distal pulses. No c yanosis or clubbing. NEUROLOGIC: Alert and oriented x3. Examination a ppears to be nonfocal. LABORATORY DATA: Pending. Noninvasive cardiovasc ular workup enclosed. IMPRESSION AND PLAN: This is a 79-year-old lady with multiple cardiovascular risk factors, who comes in w ith worsening dyspnea, abnormal nuclear stress test, abnormal echocardiogram with valvular heart dise ase, high likelihood of significant coronary artery disease, and depress ed ejection fraction. The patient is here for cardiac catheterization to a ssess for possible revascularization. The recommendation is to proc eed with the above-mentioned procedures. The risks and benefits of th e planned procedures were discussed in detail with the patient and she is willing to pr oceed. Rest as per orders. Dictated By: Amos Conway MD WT: PREOPHP:RAJESH/LEANDRA/ARMANDO Conf#: [id number]/DID#: [id number] Authenticated and Edited by Amos Conway MD On 09/03/19 3:51:39 PM at 1551 PATIENT NAME: ZARIA MURRELL+Leidy [id number]
[2023-05-06 22:34] VITALS: BMI 43.4
[2023-05-06] MEDS ORDERED: GLUCAGON 1 MG/VIAL IM PRN (23:01)
[2023-05-06] MEDS ORDERED: D50W 25 GM/50 ML SYRINGE IV PRN (23:01)
[2023-05-06] MEDS ORDERED: D10W 125 ML IV PRN (23:21)
[2023-05-07 01:21] LABS: Specific Gravity 1.016 (1.005-1.030); Urine Bacteria None Seen /HPF (<20); Urine Bilirubin NEGATIVE (Negative); Urine Blood Trace (Negative); Urine Clarity Clear (Clear); Urine Color Light-Yellow (Yellow); Urine Glucose NEGATIVE (Negative); Urine Protein 1+ (Negative); Urine RBC <5 /HPF (None Seen); Urine Urobilinogen Normal (Normal); Urine pH 5.5 (5.0-7.0)
[2023-05-07] MEDS: OXYCODONE HCL 5 MG TAB PO PRN ×2 (03:05→08:11)
[2023-05-07] MEDS ORDERED: PANTOPRAZOLE 40MG TABLET PO SCH (06:30)
[2023-05-07 06:49] LABS: Hematocrit 28.3 % (36.0-45.0); Lymphocytes % 9.2 % (15.3-44.8); MCV 89.6 fL (80-100); MPV 8.3 fL (7.6-11.3); RBC Red Blood Cell Count 3.16 M/uL (3.86-4.86)
[2023-05-07] MEDS: AMLODIPINE 5 MG TAB PO SCH (06:52)
[2023-05-07] MEDS: LEVOTHYROXINE SOD 0.05 MG TABLET PO SCH (06:53)
[2023-05-07] MEDS: FUROSEMIDE 40 MG TABLET PO SCH (06:53)
[2023-05-07] MEDS: INSULIN -REGULAR HUMAN 50 UNIT/0.5 ML ML SQ SCH ×4 (07:14→20:14)
[2023-05-07 07:30] LABS: Albumin 2.5 g/dL (3.4-5.0); Magnesium 2.3 mg/dL (1.6-2.4); Potassium 3.6 mEq/L (3.5-5.1)
[2023-05-07] MEDS ORDERED: LOSARTAN POTASSIUM 50 MG TABLET PO SCH (08:00)
[2023-05-07] MEDS ORDERED: ENOXAPARIN 40 MG/0.4 ML SQ SCH (08:00)
[2023-05-07] MEDS ORDERED: INSULIN GLARGINE SQ SCH (08:00)
[2023-05-07] MEDS ORDERED: MAGNESIUM OXIDE 400 MG TAB PO SCH (08:00)
[2023-05-07] MEDS ORDERED: METOPROLOL XL 25 MG TAB PO SCH (08:00)
[2023-05-07] MEDS ORDERED: [UNRECOGNIZED DRUG - OTHER] SQ SCH (08:00)
[2023-05-07] MEDS ORDERED: ALOGLIPTIN BENZOATE 12.5 MG TABLET PO SCH (08:00)
[2023-05-07] MEDS: ASPIRIN 81 MG CHEWABLE TABLET PO SCH (08:12)
[2023-05-07] MEDS: MULTIVITAMIN TAB PO SCH (08:13)
[2023-05-07] MEDS: EZETIMIBE 10 MG TAB PO SCH (08:13)
[2023-05-07] MEDS: SPIRONOLACTONE 25 MG TABLET PO SCH (08:13)
[2023-05-07] MEDS: LIDOCAINE 4% PATCH TOP SCH (08:16)
[2023-05-07 09:02] LABS: Blood Morphology Comment NOT SEEN (NOT SEEN); Platelet Estimate ADEQ; White Blood Cell Scan OK (OK)
[2023-05-07] MEDS: CYCLOBENZAPRINE 10 MG TAB PO SCH ×3 (09:42→19:47)
[2023-05-07] MEDS: ASCORBIC ACID 500 MG TABLET PO SCH ×2 (09:51→19:46)
[2023-05-07] MEDS: CYANOCOBALAMIN 1,000 MCG TAB PO SCH (09:51)
[2023-05-07] MEDS: ISOSORBIDE MONO SR 30 MG TAB PO SCH (09:52)
[2023-05-07] MEDS: MAGNESIUM HYDROXIDE 8% 30 ML PO PRN (13:22)
[2023-05-07] MEDS: GABAPENTIN 100 MG CAP PO SCH ×2 (14:25→19:46)
[2023-05-07] MEDS: HYDROCODONE/APAP 5/325 MG TAB PO PRN ×2 (14:25→19:48)
[2023-05-07] MEDS: METOPROLOL XL 25 MG TAB PO SCH (17:02)
--- NOTE | 2023-05-07 18:00 | RAD REPORT ---
EXAM DESCRIPTION: RAD - Abdomen 1 View (KUB) - 05/07/2023 3:47 pm CLINICAL HISTORY: constipation COMPARISON: No comparisons TECHNIQUE: Single AP view of the abdomen. FINDINGS: Nonobstructive bowel gas pattern. No air-fluid levels, free air, or pneumatosis. No signif icant stool retention. No suspicious calcifications. No significant bony abnormality. Lower lumbar transpedicular fusion hardware. IMPRESSION: No acute abnormalities.
[2023-05-07] MEDS: LATANOPROST 0.005% 2.5ML OPTH OPTH SCH (19:45)
[2023-05-07] MEDS: LOSARTAN POTASSIUM 50 MG TABLET PO SCH (19:46)
[2023-05-07] MEDS: APIXABAN 2.5 MG TABLET PO SCH (19:46)
[2023-05-07] MEDS: ATORVASTATIN 80 MG TAB PO SCH (19:46)
[2023-05-07] MEDS: DOCUSATE NA/SENNA CONC 1 TAB PO SCH (19:46)
[2023-05-07] MEDS: INSULIN GLARGINE 100 UNIT/ML SQ SCH (20:14)
--- NOTE | 2023-05-07 21:41 | HP ---
Date of Admission: 05/06/2023 Time Of Service: 12 noon Chief Complaint: "Back pain after surgery and weakness in my legs." History Of Present Illness: Ms. Murrell is an 82-year-old patient with multiple medical problems inc luding stage 3 kidney disease, congestive heart failure, diabetes mellitus, hypertension, aortic valv e stenosis status post TAVR who was seen at an outside hospital on May 02, 2023 for lumbar kyphoplast y due to medically refractory lumbar compression fractures. She did have an L4-5 mini open transfora dane lumbar interbody fusion, which addressed stenosis and her radiculopathy along with fracture. S he was seen while in hospital by the Nephrology Service because of hyperkalemia and qyups-gv-stitasi renal insufficiency. She was treated with IV fluids, Kayexalate and Lokelma. She received Januvia f or type 2 diabetes mellitus, Lovenox for DVT prophylaxis, and antihypertensive medications. She did have a mild ileus with nausea, vomiting, and constipation. She had not had a bowel movement in about 4 days. She also developed significant lower extremity weakness in the territory of L4-5 and when e valuated by the physical therapist, was documented to have lower extremity weakness. She was able to have bowel movement after 4 days and began to work with physical therapy, but was found to be signif icantly debilitated requiring kfeurxdn-zk-yjzixmy assistance for transfers, ambulation, and performan ce of her activities of daily living. As a result, she is determined to be an appropriate candidate for acute inpatient rehabilitation due to her significant decrease in mobility and need to have her m edical comorbid conditions addressed aggressively. She is therefore admitted to the unit for physica l and occupational therapy and medical management. Past Medical History: Abdominal uterine bleeding and postmenopausal bleeding, aortic stenosis, anemi a, arthritis, congestive heart failure, chronic kidney disease, diabetes mellitus type 2, gastroesoph ageal reflux disease, hyperlipidemia, hypertension, myocardial infarction, chronic obstructive pulmon robyn disease, and spinal stenosis. Past Surgical History: Appendectomy, bunionectomy, , cholecystectomy, colonoscopy, endoscop y, coronary angiogram, CT TAVR procedure in 2020, cystoscopy, esophagogastroduodenoscopy, total knee surgery on the right in 2012, laparoscopic robotic assistance vaginal hysterectomy, a PillCam, salpin go-oophorectomy bilaterally, tonsillectomy, and transcatheter aortic valve replacement. Imaging Studies: CT of the lumbar spine without contrast on 05/02/2023 shows no acute fractures or s ubluxation of the lumbar spine. There are degenerative changes of lumbar spine, most notably at L4-5 with severe spinal canal stenosis. MRI done on December of 2022 also showed the same finding. X-ra y of lumbar spine on 05/03 shows successful decompression surgery of the L4-5 spinal and the root jolie nosis. A KUB done on 05/03/2023 shows moderate colonic ileus. She was followed while at outside hospital by Nephrology, Neurology, Neurosurgery and Physical and Oc cupational Therapy. Allergies: NO KNOWN DRUG ALLERGIES. Current Medications: [place] 5/325 every 4 hours, Norvasc 5 mg daily, Eliquis 2.5 mg twice daily, heath min C 5000 mg twice daily, aspirin 81 mg daily, Lipitor 80 mg at bedtime, vitamin B12 2500 mcg daily, Flexeril 5 mg twice daily, Zetia 10 mg daily, ferrous sulfate 325 mg daily, Lasix 40 mg daily, gabap entin 100 mg twice daily, Semglee insulin 44 units subcutaneously at bedtime, Imdur 30 mg daily, Xala ferreira 0.005% ophthalmic at bedtime bilaterally, Synthroid 0.05 mg daily, lidocaine patch applied topica lly to abdominal area where there is pain daily, Cozaar 50 mg twice daily, milk of magnesia 30 mL brad ly as needed for constipation, Toprol-XL 25 mg daily, Protonix 40 mg daily, Centrum Silver 1 tablet d aily, Senokot-S 2 at bedtime, spironolactone 25 mg daily, and tramadol 50 mg every 6 hours as needed. Laboratory Studies: White blood cell count 11.1 with 75.5% neutrophils, hemoglobin 9.6, hematocrit 2 8.3, and platelets 248. Sodium 134, potassium 3.6, chloride 101, carbon dioxide 28, BUN 42, creatini ne 1.38, glucose ranged from 200 to 293, calcium 8.7, magnesium 2.3, prealbumin 12, and albumin 2.5. Urinalysis shows trace blood, 500 esterase, +1 protein and is otherwise unremarkable. Review of Systems: Ms. Murrell reports some abdominal pressure-like sensation, which she says started after she had her procedure. She was put in the prone position to have access to her back and when waking up, she says around the lower abdominal area there was feeling of pressure in that area and she also had Lovenox shots placed there. When she arrived on the unit, KUB x-ray was done and that study showed no acute abnormalities. There was lower lumbar transpedicular fusion hardware in place. No significant bony abnormalities identified. Otherwise, on review of systems, she denies any fevers, chills, nausea, or vomiting. She does report having 1 bowel movement in the last 4 days. Denies any issues with urina tion. No significant issues in the feet. There is some pain in the knees and weakness in the lower extremities. No psychiatric complaints. No dermatological complaints. No active pulmonary complain ts and no other positives on the systems review. Physical Examination: Vital Signs: Blood pressure 144/53, pulse of 67, respiratory rate 18, temperature 97.2, and oxygen s aturation is 95% to 96% on room air. General: Ms. Murrell is resting comfortably in bed. HEENT: She appears normocephalic, atraumatic. Sclerae anicteric. Oropharynx pink and moist. Neck: Supple. Chest: Clear. Heart: Regular. Abdomen: Obese, soft, and nontender. There is an area of Lovenox bruising in the right lower abdome n and a smaller area on the left lower abdomen. She has the lidocaine patch in the right lower abdom en and no significant abnormalities and no obvious bruising otherwise on the abdominal area. Lower Extremities: No significant cyanosis or edema. Neurologic: She does not have focal deficits in terms of strength, sensation, and coordination in up per and lower extremities. Again, diffuse weakness around 4 or less in the lower extremities, but sy mmetric. No other abnormalities. She began ambulating with physical therapy today and was able to a mbulate 50 feet with a rolling walker with minimum assistance. Current Level Of Functioning: Prior to her recent procedure, she was independent. Currently indepen dent with eating and oral hygiene; moderate assistance with toileting, showering, and upper body dres sing; maximum assistance is required for lower body dressing; sit to stand with moderate assistance; lying to sit to stand with moderate assistance; from bed to chair with moderate assistance; toilet tr ansfer with moderate assistance. She covered 25 feet earlier, with moderate assistance now 50 feet. Rehabilitation And Medical Assessment And Plan: Ms. Murrell is admitted to the inpatient rehabilitat ion unit with a rehabilitation impairment category of 06, neurologic condition. Her impairment group code is 03.9 other neurologic. Her etiologic diagnosis is lumbar stenosis with radiculopathy. Her active comorbid conditions include acute renal insufficiency, aortic stenosis, coronary artery diseas e, decreased mobility, diabetes mellitus type 2, hypertension, hyperkalemia, hypothyroidism, metaboli c acidosis, morbid obesity, obstructive sleep apnea, and decrease in physical functioning. Plan: 1.She will have physical and occupational and speech therapy, if needed up to 3.5 hours, 5 of 7 days . 2.She has multiple comorbid conditions, which are listed above and she will receive the medications for acute management including antihypertensive medications with aldactone for diuresis along with is osorbide or Imdur and Lasix. She has for diabetes mellitus, Semglee insulin with an insulin sliding scale. She has aspirin 81 mg and Eliquis 2.5 mg for stroke and DVT risk reduction. In addition to t he diuretics for blood pressure and fluid management, amlodipine is also present. She has vitamin B1 2 supplementation. She has Flexeril for muscle spasms, gabapentin for neuropathic pain, Synthroid fo r hypothyroidism and tramadol along with Brandon for pain. Impact Of Comorbids: Currently she has multiple conditions impacting her renal function, cardiac fun ctioning, and GI functioning and will require ongoing daily evaluation and management of those to opt imize her ability to do well in rehabilitation. However, she has no significant limitations that pre vent her from thriving in terms of her mobilization, in terms of distance, up and down steps, and per formance of her activities of daily living. Rehab Specific Plan: 1.Ms. Murrell will have physical and occupational therapy for 3 hours a day, 5 of 7 days. She will have, if need be speech therapy. She will be evaluated and see if it is required. If it is, it will be 0.5 hours for 5 of 7 days. 2.She will have her medical management assessed and managed about multiple times a day with nursing evaluations and adjustments and again daily physician evaluation and management. Ms. Murrell has a good understanding of the reason for her admission to the inpatient rehabilitation unit and the interdisciplinary approach that will be applied. She has a potential to make good impro vement with physical and occupational and if need be speech therapy. Additionally, services from the Pulmonary Service, Cardiac Service, Renal Service, Nutrition Service along with Wound Care will be s ought again, if need be. Given her complex medical condition and risk of further complications, reha bilitation services cannot be safely or effectively provided at a lower level of care such as longterm. Barriers To Discharge: Currently, there is a risk of deep vein thrombosis and pulmonary embolus that is mitigated with medication as noted above. She does have renal insufficiency. She has anemia and those factors will be addressed with transfusion if need be and Procrit and the Renal Service could be brought in, but those are currently mitigated. Estimated Length Of Stay: About 14 days. Disposition: Home. Prognosis: Good. Rehabilitation Goals: 1.Independent upper and lower body dressing and donning and doffing of shoes. 2.Independent transfers from bed to toilet, to shower and wheelchair. 3.Independent ambulation with a rolling walker over 500 feet. 4.Independent up and down 5 to 10 steps with bilateral hand rails. 5.Independent cognitive functioning. I acknowledge, I have personally performed a full physical examination on Ms. Murrell, no later than 24 hours after admission to the inpatient rehabilitation unit and determined that she is able to tole rate the above course of treatment at an intensive level for a reasonable period of time. A detailed individualized plan of care for her will be completed by hospital day 4 based on her preadmission sc reen, history and physical, and therapy evaluations. MARIA ELENA/MONICO Voice ID: [id number]
[2023-05-08 04:38] LABS: Magnesium 2.3 mg/dL (1.6-2.4); Potassium 3.6 mEq/L (3.5-5.1)
[2023-05-08 04:39] LABS: Absolute Lymphocytes (CBC) 1.4 K/uL (0.7-4.9); Hematocrit 28.1 % (36.0-45.0); Lymphocytes % 13.1 % (15.3-44.8); MCV 89.9 fL (80-100); MPV 8.2 fL (7.6-11.3); RBC Red Blood Cell Count 3.12 M/uL (3.86-4.86)
[2023-05-08] MEDS: LEVOTHYROXINE SOD 0.05 MG TABLET PO SCH (05:10)
[2023-05-08] MEDS: METOPROLOL XL 25 MG TAB PO SCH ×2 (05:24→17:22)
[2023-05-08] MEDS: HYDROCODONE/APAP 5/325 MG TAB PO PRN ×3 (06:19→19:57)
[2023-05-08] MEDS: AMLODIPINE 5 MG TAB PO SCH (06:49)
[2023-05-08] MEDS: FUROSEMIDE 40 MG TABLET PO SCH (06:49)
[2023-05-08] MEDS: PANTOPRAZOLE 40MG TABLET PO SCH (06:50)
[2023-05-08] MEDS: INSULIN -REGULAR HUMAN 50 UNIT/0.5 ML ML SQ SCH ×4 (06:55→19:56)
[2023-05-08] MEDS ORDERED: INSULIN GLARGINE 100 UNIT/ML SQ SCH (08:00)
[2023-05-08] MEDS: MAGNESIUM HYDROXIDE 8% 30 ML PO PRN (08:12)
[2023-05-08] MEDS: CYANOCOBALAMIN 1,000 MCG TAB PO SCH (08:16)
[2023-05-08] MEDS: GABAPENTIN 100 MG CAP PO SCH ×2 (08:16→19:56)
[2023-05-08] MEDS: FE SULF/FA/VIT B COMP & C TAB PO SCH (08:16)
[2023-05-08] MEDS: EZETIMIBE 10 MG TAB PO SCH (08:16)
[2023-05-08] MEDS: FERROUS SULFATE 325 MG TAB PO SCH (08:16)
[2023-05-08] MEDS: ASPIRIN 81 MG CHEWABLE TABLET PO SCH (08:16)
[2023-05-08] MEDS: APIXABAN 2.5 MG TABLET PO SCH ×2 (08:17→19:58)
[2023-05-08] MEDS: ASCORBIC ACID 500 MG TABLET PO SCH ×2 (08:17→19:57)
[2023-05-08] MEDS: CYCLOBENZAPRINE 10 MG TAB PO SCH ×2 (08:17→19:57)
[2023-05-08] MEDS: SPIRONOLACTONE 25 MG TABLET PO SCH (08:17)
[2023-05-08] MEDS: MULTIVITAMIN TAB PO SCH (08:17)
[2023-05-08] MEDS: ALOGLIPTIN BENZOATE 12.5 MG TABLET PO SCH (08:18)
[2023-05-08] MEDS: LIDOCAINE 4% PATCH TOP SCH (08:18)
[2023-05-08] MEDS: ISOSORBIDE MONO SR 30 MG TAB PO SCH (11:17)
[2023-05-08] MEDS: LOSARTAN POTASSIUM 50 MG TABLET PO SCH ×2 (11:17→19:57)
[2023-05-08] MEDS ORDERED: LORATADINE 10 MG TAB PO PRN (13:45)
[2023-05-08] MEDS ORDERED: ALBUTEROL 2.5 MG/3 ML NEB SOL NEB PRN (13:46)
--- NOTE | 2023-05-08 15:51 | RAD REPORT ---
EXAM DESCRIPTION: RAD - Chest Single View - 05/08/2023 3:46 pm CLINICAL HISTORY: cough Chest pain. COMPARISON: Abdomen 1 View (KUB) dated 05/07/2023 FINDINGS: Portable technique limits examination quality. Mild interstitial pulmonary edema suspected. The heart is mildly prominent. No displaced fractures. IMPRESSION: Mild CHF is suspected.
--- NOTE | 2023-05-08 19:05 | PN ---
Date of Progress Note: 05/08/2023 Time Of Service: 1 p.m. Subjective: Ms. Murrell is doing better. She has less pain in the lower back where she had a transf oraminal lumbar interbody fusion. She also has less pain in the lower extremities. Otherwise, no ne w complaints. Review of Systems: No fevers, chills. Mild myalgias and arthralgias. No rash, headache, weight change. No psychiatric issues. No gastrointestinal issues except she does have some mild upper airway rhonchi type sounds she says when breathing. Physical Examination: Blood pressure 142/68, pulse 65, respiratory rate of 16, temperature 97.3, oxygen saturation 95%. Ms Celia Murrell is doing well. She did work on incentive spirometry there and got to 1200 cc of air moveme nt with sucking in. She does not have focal deficits in the upper and lower extremities, but diffuse weakness and some stocking glove loss in the lower extremities. Laboratory Studies: White blood cell count 10.9, hemoglobin 9.3, platelets 274. Sodium 133, potassi um 3.6, chloride 97, carbon dioxide 29, BUN 53, creatinine 2.14, glucose ranged from 170 to 260, prea lbumin 13, magnesium 2.3, calcium 8.9. Urinalysis shows trace blood, 500 esterase, 1+ protein. Cult ures are pending. X-ray/imaging: She had a chest x-ray done earlier today showing mild CHF is suspected with mild pulm onary interstitial edema suspected. She also had a KUB study done yesterday to rule out bowel obstru ction. The study showed no suspicious abnormalities. No significant bony abnormalities. No obstruc tive bowel gas pattern. No air-fluid levels or hematemesis. No significant stool retention again an d no suspicious calcifications. Medications: [place] 5/325 every 4 hours as needed, albuterol nebulizer 2.5 mg every 6 hours as needed , Norvasc 5 mg daily, Eliquis 2.5 mg twice daily, vitamin C 500 mg twice daily, aspirin 81 mg daily, Lipitor 80 mg at bedtime, vitamin B12 2500 mcg daily, Flexeril 5 mg twice daily, Zetia 10 mg daily, f errous sulfate 325 mg daily, Lasix 40 mg daily, gabapentin 100 mg twice daily, Semglee insulin 44 uni ts at bedtime, Imdur 30 mg daily, levothyroxine 0.05 mg daily, lidocaine patch apply 1 topically daniela y to back, Claritin 10 mg daily, losartan 50 mg twice daily, milk of mag 30 mg daily as needed for co nstipation, Toprol-XL 25 mg daily, Centrum Silver 1 tablet daily, Ensure Enlive 237 mL twi ce daily, Protonix 40 mg daily, Senokot-S 2 at bedtime, Aldactone 25 mg daily, Ultram 50 mg every 6 h ours as needed. Current Functional Status: Ms. Murrell today was able to perform supine to sit transfers with minimu m assistance, [id number] transfers with minimum assistance, stand pivot transfers with contact guar d assistance. She ambulated 150 feet twice and 125 feet twice using a rolling walker with contact gu karina assistance. She was able to perform upper body dressing independently, lower body dressing with moderate assistance. Sit to supine did occur with maximum assistance with occupational therapist. Progress Towards Rehabilitation Goals: Ms. Murrell is beginning to make good progress towards her go als of becoming independent with upper and lower body dressing, transferring, toileting, showering, a mbulating over 250 feet with modified independence and to be able to go up and down 5-10 steps with m odified independence. Assessment: Ms. Murrell is an 82-year-old patient, admitted to the rehabilitation unit, status post L4-5 mini open transforaminal lumbar interbody fusion. She has renal insufficiency, aortic stenosis, coronary artery disease, decreased mobility, diabetes mellitus type 2, hypertension, hyperkalemia, h ypothyroidism, metabolic acidosis, morbid obesity, obstructive sleep apnea, and decrease in physical functioning. Plan: 1.Continue with physical and occupational therapy 3 hours a day 7 days. 2.She has multiple comorbid conditions, which are managed by continuing all her medications includin g Semglee insulin for diabetes mellitus, aspirin and Eliquis for stroke and DVT risk reduction, amlod ipine for blood pressure, Flexeril for muscle spasms, gabapentin for neuropathic pain, Synthroid for hypothyroidism, tramadol and [place] as needed for pain. She has Lasix for now CHF pattern that is see n on chest x-ray and she will have incentive spirometry done aggressively. Comorbidities That Are Continuing To Impact Rehabilitation Process: She has as noted mild CHF patter n on chest x-ray. She does have Lasix. Again, she will have incentive spirometry to help with that. She does have multiple comorbidities, which are listed, but are not negatively impacting her rehabi litation, but those again are aggressively managed. LB/MODL Voice ID: [id number] Report ID: [id number]
[2023-05-08] MEDS: INSULIN GLARGINE 100 UNIT/ML SQ SCH (19:56)
[2023-05-08] MEDS: LATANOPROST 0.005% 2.5ML OPTH OPTH SCH (19:56)
[2023-05-08] MEDS: ATORVASTATIN 80 MG TAB PO SCH (19:57)
[2023-05-08] MEDS: DOCUSATE NA/SENNA CONC 1 TAB PO SCH (19:58)
[2023-05-08] MEDS: ENSURE ENLIVE 237 ML CAN PO SCH (19:58)
[2023-05-09] MEDS: METOPROLOL XL 25 MG TAB PO SCH ×2 (05:12→17:22)
[2023-05-09] MEDS: LEVOTHYROXINE SOD 0.05 MG TABLET PO SCH (05:12)
[2023-05-09] MEDS: PANTOPRAZOLE 40MG TABLET PO SCH (06:42)
[2023-05-09] MEDS: ISOSORBIDE MONO SR 30 MG TAB PO SCH (06:56)
[2023-05-09] MEDS: AMLODIPINE 5 MG TAB PO SCH (06:57)
[2023-05-09] MEDS: FUROSEMIDE 40 MG TABLET PO SCH (06:57)
[2023-05-09] MEDS: ENSURE ENLIVE 237 ML CAN PO SCH (08:00)
[2023-05-09] MEDS: GABAPENTIN 100 MG CAP PO SCH ×2 (08:07→20:34)
[2023-05-09] MEDS: INSULIN -REGULAR HUMAN 50 UNIT/0.5 ML ML SQ SCH ×4 (08:07→20:34)
[2023-05-09] MEDS: FE SULF/FA/VIT B COMP & C TAB PO SCH (08:08)
[2023-05-09] MEDS: APIXABAN 2.5 MG TABLET PO SCH ×2 (08:08→20:32)
[2023-05-09] MEDS: LORATADINE 10 MG TAB PO SCH (08:08)
[2023-05-09] MEDS: DOCUSATE NA 100 MG CAP PO SCH (08:08)
[2023-05-09] MEDS: CYCLOBENZAPRINE 10 MG TAB PO SCH ×2 (08:08→20:32)
[2023-05-09] MEDS: ASPIRIN 81 MG CHEWABLE TABLET PO SCH (08:10)
[2023-05-09] MEDS: FERROUS SULFATE 325 MG TAB PO SCH (08:10)
[2023-05-09] MEDS: CYANOCOBALAMIN 1,000 MCG TAB PO SCH (08:10)
[2023-05-09] MEDS: MULTIVITAMIN TAB PO SCH (08:11)
[2023-05-09] MEDS: LOSARTAN POTASSIUM 50 MG TABLET PO SCH ×2 (08:11→20:32)
[2023-05-09] MEDS: EZETIMIBE 10 MG TAB PO SCH (08:11)
[2023-05-09] MEDS: ALOGLIPTIN BENZOATE 12.5 MG TABLET PO SCH (08:11)
[2023-05-09] MEDS: ASCORBIC ACID 500 MG TABLET PO SCH ×2 (08:11→20:34)
[2023-05-09] MEDS: SPIRONOLACTONE 25 MG TABLET PO SCH (09:58)
--- NOTE | 2023-05-09 14:23 | P.RH.PN ---
Estimated Length of Stay: 12 Expected Discharge Date: 05/16/23 Discharge Disposition Plan: Home Family Support: Yes [facility]itentiary Goal: Mobility, Transfers, Self Care Vital Signs: Last Vital Signs Temp 97 F 05/09/23 06:57 Pulse 57 05/09/23 09:58 Resp 20 05/09/23 06:57 BP 150/63 H 05/09/23 09:58 Pulse Ox 95 05/09/23 06:57 Laboratory: Laboratory Last Values WBC 10.90 thou/uL (4.3-10.9) 05/08/23 03:55 RBC 3.12 M/uL (3.86-4.86) L 05/08/23 03:55 Hgb 9.3 g/dL (12.0-15.0) L 05/08/23 03:55 Hct 28.1 % (36.0-45.0) L 05/08/23 03:55 MCV 89.9 fL (80-100) 05/08/23 03:55 MCH 29.7 pg (27.0-35.0) 05/08/23 03:55 MCHC 33.0 g/dL (32.0-36.0) 05/08/23 03:55 RDW 15.8 % (12.1-15.2) H 05/08/23 03:55 Plt Count 274 thou/uL (152-406) 05/08/23 03:55 MPV 8.2 fL (7.6-11.3) 05/08/23 03:55 Neutrophils % 68.8 % (41.7-73.7) 05/08/23 03:55 Lymphocytes % 13.1 % (15.3-44.8) L 05/08/23 03:55 Monocytes % 11.9 % (3.3-12.3) 05/08/23 03:55 Eosinophils % 5.7 % (0-4.4) H 05/08/23 03:55 Basophils % 0.5 % (0-1.3) 05/08/23 03:55 Absolute Neutrophils 7.5 K/uL (1.8-8.0) 05/08/23 03:55 Absolute Lymphocytes 1.4 K/uL (0.7-4.9) 05/08/23 03:55 Absolute Monocytes 1.3 K/uL (0.1-1.3) 05/08/23 03:55 Absolute Eosinophils 0.6 K/uL (0-0.5) H 05/08/23 03:55 Absolute Basophils 0.1 K/uL (0-0.5) 05/08/23 03:55 Platelet Estimate Adeq 05/07/23 06:32 Morphology Comment Not seen (NOT SEEN) 05/07/23 06:32 Sodium 133 mEq/L (136-145) L 05/08/23 03:55 Potassium 3.6 mEq/L (3.5-5.1) 05/08/23 03:55 Chloride 97 mEq/L (98-107) L 05/08/23 03:55 Carbon Dioxide 29 mEq/L (21-32) 05/08/23 03:55 Anion Gap 10.6 mEq/L (5.0-15.0) 05/08/23 03:55 BUN 53 mg/dL (7-18) H 05/08/23 03:55 Creatinine 2.14 mg/dL (0.55-1.02) H 05/08/23 03:55 Est GFR (CKD-EPI) 23 ml/min (=/>90) L 05/08/23 03:55 Glucose 205 mg/dL (74-106) H 05/08/23 03:55 POC Glucose 218 mg/dL (65-120) H 05/09/23 11:50 Calcium 8.9 mg/dL (8.5-10.1) 05/08/23 03:55 Magnesium 2.3 mg/dL (1.6-2.4) 05/08/23 03:55 Albumin 2.5 g/dL (3.4-5.0) L 05/07/23 06:32 Prealbumin 13.0 mg/dL (20-40) L 05/08/23 03:55 Urine Color Light-yellow (Yellow) 05/06/23 23:02 Urine Clarity Clear (Clear) 05/06/23 23:02 Urine pH 5.5 (5.0-7.0) 05/06/23 23:02 Ur Specific Odum 1.016 (1.005-1.030) 05/06/23 23:02 Glucose (UA)(Auto) Negative (Negative) 05/06/23 23:02 Urine Ketones Negative (Negative) 05/06/23 23:02 Urine Blood Trace (Negative) H 05/06/23 23:02 Urine Nitrite Negative (Negative) 05/06/23 23:02 Urine Bilirubin Negative (Negative) 05/06/23 23:02 Urine Urobilinogen Normal (Normal) 05/06/23 23:02 Ur Leukocyte Esterase 500 Kelby/uL (Negative) H 05/06/23 23:02 Urine RBC <5 /HPF (None Seen) 05/06/23 23:02 Urine WBC <5 /HPF (<5) 05/06/23 23:02 Ur Squamous Epith Cells None seen /HPF (None Seen) 05/06/23 23:02 Urine Bacteria None seen /HPF (<20) 05/06/23 23:02 Urine Culture Reflexed Not needed 05/06/23 23:02 Urine Total Protein 1+ (Negative) H 05/06/23 23:02 Smear Scan Ok (OK) 05/07/23 06:32 Weight: 244 lb 14.4 oz Wound Present: No Closed Surgical Incision Present: Yes Negative Pressure Wound Therapy Present: No Physician Update: Mildly increased creatinine to 2.14. Will decrease lasix and check chest x-ray. Making fair overall progress with therapy except mildly limited by abdominal pain. She has mild spinal precautions. Moderate assistance with lower body dressing. Walking 150' with contact guard assistance. Bed mobility min assistance. Summary: Patient's care plan and shelter goals have been reviewed and revised as necessary. Please see the Rehabilitation Signature page for all necessary signatures.
[2023-05-09] MEDS ORDERED: ALBUTEROL 2.5 MG/3 ML NEB SOL NEB SCH (20:00)
[2023-05-09] MEDS: GLUCERNA SHAKE 237 ML CAN PO SCH (20:33)
[2023-05-09] MEDS: ATORVASTATIN 80 MG TAB PO SCH (20:34)
[2023-05-09] MEDS: DOCUSATE NA/SENNA CONC 1 TAB PO SCH (20:34)
[2023-05-09] MEDS: INSULIN GLARGINE 100 UNIT/ML SQ SCH (20:36)
[2023-05-09] MEDS: LATANOPROST 0.005% 2.5ML OPTH OPTH SCH (20:37)
[2023-05-10] MEDS: LEVOTHYROXINE SOD 0.05 MG TABLET PO SCH (05:22)
[2023-05-10] MEDS: METOPROLOL XL 25 MG TAB PO SCH ×2 (05:22→17:14)
[2023-05-10] MEDS: PANTOPRAZOLE 40MG TABLET PO SCH (07:16)
[2023-05-10] MEDS: APIXABAN 2.5 MG TABLET PO SCH ×2 (07:28→19:57)
[2023-05-10] MEDS: ISOSORBIDE MONO SR 30 MG TAB PO SCH (07:28)
[2023-05-10] MEDS: AMLODIPINE 5 MG TAB PO SCH (07:29)
[2023-05-10] MEDS: ALBUTEROL 2.5 MG/3 ML NEB SOL NEB SCH ×2 (07:48→14:00)
[2023-05-10] MEDS: CYCLOBENZAPRINE 10 MG TAB PO SCH (08:00)
[2023-05-10] MEDS ORDERED: FUROSEMIDE 20 MG TABLET PO SCH (08:00)
[2023-05-10] MEDS: HYDROCODONE/APAP 5/325 MG TAB PO PRN ×2 (08:29→15:14)
[2023-05-10] MEDS: DOCUSATE NA 100 MG CAP PO SCH (08:30)
[2023-05-10] MEDS: GABAPENTIN 100 MG CAP PO SCH ×2 (08:30→19:56)
[2023-05-10] MEDS: EZETIMIBE 10 MG TAB PO SCH (08:31)
[2023-05-10] MEDS: FERROUS SULFATE 325 MG TAB PO SCH (08:31)
[2023-05-10] MEDS: ASPIRIN 81 MG CHEWABLE TABLET PO SCH (08:32)
[2023-05-10] MEDS: FE SULF/FA/VIT B COMP & C TAB PO SCH (08:32)
[2023-05-10] MEDS: MULTIVITAMIN TAB PO SCH (08:33)
[2023-05-10] MEDS: SPIRONOLACTONE 25 MG TABLET PO SCH (08:33)
[2023-05-10] MEDS: CYANOCOBALAMIN 1,000 MCG TAB PO SCH (08:33)
[2023-05-10] MEDS: ASCORBIC ACID 500 MG TABLET PO SCH ×2 (08:34→19:56)
[2023-05-10] MEDS: LORATADINE 10 MG TAB PO SCH (08:34)
[2023-05-10] MEDS: guaiFENesin 100 MG/5 ML UCUP PO PRN ×2 (08:34→16:31)
[2023-05-10] MEDS: INSULIN -REGULAR HUMAN 50 UNIT/0.5 ML ML SQ SCH ×4 (08:37→19:58)
[2023-05-10 09:11] LABS: Absolute Lymphocytes (CBC) 1.9 K/uL (0.7-4.9); Hematocrit 28.7 % (36.0-45.0); Lymphocytes % 15.7 % (15.3-44.8); MCV 89.7 fL (80-100); MPV 8.5 fL (7.6-11.3)
[2023-05-10 09:24] LABS: Potassium 4.4 mEq/L (3.5-5.1)
[2023-05-10] MEDS: LOSARTAN POTASSIUM 50 MG TABLET PO SCH ×2 (09:42→19:56)
[2023-05-10] MEDS: ALOGLIPTIN BENZOATE 12.5 MG TABLET PO SCH (09:42)
[2023-05-10] MEDS ORDERED: CYCLOBENZAPRINE 10 MG TAB PO PRN (09:44)
--- NOTE | 2023-05-10 10:06 | RAD REPORT ---
EXAM DESCRIPTION: RAD - Chest Single View - 05/10/2023 9:54 am CLINICAL HISTORY: increase coughing, wheezing Chest pain. COMPARISON: Chest Single View dated 05/08/2023; Abdomen 1 View (KUB) dated 05/07/2023 FINDINGS: Portable technique limits examination quality. Mild pulmonary edema is noted. The heart is moderately enlarged. No displaced fractures.Aortic athero sclerosis. IMPRESSION: Mild to moderate CHF.
[2023-05-10] MEDS: GLUCERNA SHAKE 237 ML CAN PO SCH ×2 (10:24→19:57)
[2023-05-10 12:05] LABS: Blood Morphology Comment NOT SEEN (NOT SEEN); Platelet Estimate ADEQ
[2023-05-10] MEDS ORDERED: FUROSEMIDE 20 MG TABLET PO ONE (18:04)
[2023-05-10] MEDS: ATORVASTATIN 80 MG TAB PO SCH (19:56)
[2023-05-10] MEDS: DOCUSATE NA/SENNA CONC 1 TAB PO SCH (19:57)
[2023-05-10] MEDS: INSULIN GLARGINE 100 UNIT/ML SQ SCH (19:57)
[2023-05-10] MEDS: LATANOPROST 0.005% 2.5ML OPTH OPTH SCH (19:59)
[2023-05-10] MEDS: ALBUTEROL 2.5 MG/3 ML NEB SOL NEB PRN (20:30)
[2023-05-11] MEDS: guaiFENesin 100 MG/5 ML UCUP PO PRN ×2 (00:10→10:48)
[2023-05-11] MEDS: HYDROCODONE/APAP 5/325 MG TAB PO PRN ×3 (02:16→20:00)
[2023-05-11] MEDS: MAGNESIUM HYDROXIDE 8% 30 ML PO PRN (03:21)
[2023-05-11] MEDS: LEVOTHYROXINE SOD 0.05 MG TABLET PO SCH (05:02)
[2023-05-11] MEDS: METOPROLOL XL 25 MG TAB PO SCH ×2 (05:02→16:49)
[2023-05-11 06:19] LABS: Absolute Lymphocytes (CBC) 1.2 K/uL (0.7-4.9); Hematocrit 27.2 % (36.0-45.0); Lymphocytes % 10.2 % (15.3-44.8); MCV 89.8 fL (80-100); MPV 8.5 fL (7.6-11.3); RBC Red Blood Cell Count 3.03 M/uL (3.86-4.86)
[2023-05-11 06:36] LABS: Potassium 4.5 mEq/L (3.5-5.1)
[2023-05-11] MEDS: PANTOPRAZOLE 40MG TABLET PO SCH (06:52)
[2023-05-11] MEDS: ISOSORBIDE MONO SR 30 MG TAB PO SCH (06:53)
[2023-05-11] MEDS: AMLODIPINE 5 MG TAB PO SCH (06:53)
[2023-05-11] MEDS: GLUCERNA SHAKE 237 ML CAN PO SCH ×2 (08:00→19:59)
[2023-05-11] MEDS ORDERED: FUROSEMIDE 40 MG TABLET PO SCH (08:00)
[2023-05-11] MEDS: CYANOCOBALAMIN 1,000 MCG TAB PO SCH (08:14)
[2023-05-11] MEDS: APIXABAN 2.5 MG TABLET PO SCH ×2 (08:14→19:59)
[2023-05-11] MEDS: DOCUSATE NA 100 MG CAP PO SCH (08:15)
[2023-05-11] MEDS: GABAPENTIN 100 MG CAP PO SCH ×2 (08:15→19:59)
[2023-05-11] MEDS: ASPIRIN 81 MG CHEWABLE TABLET PO SCH (08:15)
[2023-05-11] MEDS: FERROUS SULFATE 325 MG TAB PO SCH (08:15)
[2023-05-11] MEDS: EZETIMIBE 10 MG TAB PO SCH (08:16)
[2023-05-11] MEDS: LORATADINE 10 MG TAB PO SCH (08:16)
[2023-05-11] MEDS: MULTIVITAMIN TAB PO SCH (08:16)
[2023-05-11] MEDS: FE SULF/FA/VIT B COMP & C TAB PO SCH (08:16)
[2023-05-11] MEDS: LOSARTAN POTASSIUM 50 MG TABLET PO SCH ×2 (08:16→19:58)
[2023-05-11] MEDS: SPIRONOLACTONE 25 MG TABLET PO SCH (08:17)
[2023-05-11] MEDS: ASCORBIC ACID 500 MG TABLET PO SCH ×2 (08:17→19:59)
[2023-05-11] MEDS: ALOGLIPTIN BENZOATE 12.5 MG TABLET PO SCH (08:19)
[2023-05-11] MEDS: INSULIN -REGULAR HUMAN 50 UNIT/0.5 ML ML SQ SCH ×4 (09:01→19:57)
[2023-05-11 09:18] LABS: Blood Morphology Comment NOT SEEN (NOT SEEN); Platelet Estimate INCR; Platelets, Giant FEW
[2023-05-11] MEDS ORDERED: FUROSEMIDE 40 MG TABLET PO ONE (13:20)
--- NOTE | 2023-05-11 14:26 | CON ---
History Of Present Illness: The patient is seen in room 513 at [facility]. The patient is alert, awake, and comfortable, seen and examined. We have been consulted as the patient does hav e some kidney disease, follows up with Dr. Thao. Her blood pressure is slightly on the higher chris e and also she has urine with Pseudomonas growing. The patient denies any new issues. Her breathing has been overall stable. She states that she is breathing close to her baseline, can lie flat witho ut a problem. Does seem to have some swelling, positive 2-3 bilaterally on her lower extremity. She states she has been on Lasix outpatient, taking currently 40 mg p.o. daily. Her past medical histor y is consistent with chronic kidney disease with volume overload, edema requiring Lasix. She has als o had a TAVR done in the past. She has also had lumbar kyphoplasty done on the cord. Her CKD stage is about 3 range. She has history of congestive heart failure, diabetes mellitus, hypertension, and aortic valve stenosis, was treated with TAVR. Past Surgical History: As above. Past Medical History: As above. Imaging Studies: The patient has had CT lumbar done, has had MRI done, x-ray on show volume in the lungs with some fluid congestion. Allergies: NKDA. Medications: Medications on the chart reviewed. Physical Examination: Vital Signs: Show that the blood pressure is slightly on the higher side. Last blood pressure 170/7 2, before that 166/70, before that 146/69. Pulse about 60 and stable. Breathing about 14 and comfor table. Lungs: Clear to auscultation anteriorly. Decreased breath sounds and few crackles at the very bases . Abdomen: Soft. Extremities: Reveal positive 3 edema bilaterally. Assessment And Plan: The patient with chronic kidney disease stage 3B with volume overload with Pseu domonas urinary tract infection. No allergies were noted. Sensitivities for Pseudomonas reviewed. We will start the patient on ciprofloxacin p.o. b.i.d. for 7 days and monitor. We will give a dose o f Lasix p.o. additionally to which she is getting p.o. daily. We are going to increase the Lasix to 40 mg p.o. b.i.d. and give additional dose of 80 mg right now. In summary, start ciprofloxacin 250 m g p.o. b.i.d. for 7 days, give 1 dose of Lasix 80 mg p.o. now. We will increase Lasix to 40 mg p.o. b.i.d. /MONICO Voice ID: [id number] Report ID: [id number]
[2023-05-11] MEDS: ALBUTEROL 2.5 MG/3 ML NEB SOL NEB PRN (14:54)
[2023-05-11] MEDS: FUROSEMIDE 40 MG TABLET PO SCH (16:49)
[2023-05-11] MEDS ORDERED: CIPROFLOXACIN HCL 250 MG TAB ONE (19:23)
[2023-05-11] MEDS: LATANOPROST 0.005% 2.5ML OPTH OPTH SCH (19:57)
[2023-05-11] MEDS: INSULIN GLARGINE 100 UNIT/ML SQ SCH (19:57)
[2023-05-11] MEDS: ATORVASTATIN 80 MG TAB PO SCH (19:58)
[2023-05-11] MEDS: DOCUSATE NA/SENNA CONC 1 TAB PO SCH (19:58)
[2023-05-11] MEDS ORDERED: CIPROFLOXACIN HCL 250 MG TAB PO SCH (20:00)
[2023-05-11] MEDS: TRAMADOL HCL 50 MG TAB PO PRN (23:33)
[2023-05-12] MEDS: guaiFENesin 100 MG/5 ML UCUP PO PRN ×2 (00:18→21:06)
[2023-05-12] MEDS: METOPROLOL XL 25 MG TAB PO SCH ×2 (05:30→16:53)
[2023-05-12] MEDS: HYDROCODONE/APAP 5/325 MG TAB PO PRN ×2 (05:30→19:57)
[2023-05-12] MEDS: LEVOTHYROXINE SOD 0.05 MG TABLET PO SCH (05:30)
[2023-05-12] MEDS: PANTOPRAZOLE 40MG TABLET PO SCH (07:32)
[2023-05-12] MEDS: INSULIN -REGULAR HUMAN 50 UNIT/0.5 ML ML SQ SCH ×4 (07:33→19:58)
[2023-05-12] MEDS: AMLODIPINE 5 MG TAB PO SCH (07:33)
[2023-05-12] MEDS: SPIRONOLACTONE 25 MG TABLET PO SCH (07:34)
[2023-05-12] MEDS: FUROSEMIDE 40 MG TABLET PO SCH (07:34)
[2023-05-12] MEDS: ALOGLIPTIN BENZOATE 12.5 MG TABLET PO SCH (07:35)
[2023-05-12] MEDS: MULTIVITAMIN TAB PO SCH (07:35)
[2023-05-12] MEDS: FERROUS SULFATE 325 MG TAB PO SCH (07:35)
[2023-05-12] MEDS: EZETIMIBE 10 MG TAB PO SCH (07:35)
[2023-05-12] MEDS: GABAPENTIN 100 MG CAP PO SCH ×2 (07:35→19:57)
[2023-05-12] MEDS: ASCORBIC ACID 500 MG TABLET PO SCH ×2 (07:36→19:58)
[2023-05-12] MEDS: DOCUSATE NA 100 MG CAP PO SCH (07:36)
[2023-05-12] MEDS: CYANOCOBALAMIN 1,000 MCG TAB PO SCH (07:36)
[2023-05-12] MEDS: ASPIRIN 81 MG CHEWABLE TABLET PO SCH (07:36)
[2023-05-12] MEDS: FE SULF/FA/VIT B COMP & C TAB PO SCH (07:36)
[2023-05-12] MEDS: APIXABAN 2.5 MG TABLET PO SCH ×2 (07:36→19:57)
[2023-05-12] MEDS: LORATADINE 10 MG TAB PO SCH (07:36)
[2023-05-12] MEDS: TRAMADOL HCL 50 MG TAB PO PRN ×2 (07:37→21:06)
[2023-05-12] MEDS: GLUCERNA SHAKE 237 ML CAN PO SCH ×2 (07:38→19:58)
[2023-05-12] MEDS: ISOSORBIDE MONO SR 30 MG TAB PO SCH (08:36)
[2023-05-12] MEDS: LOSARTAN POTASSIUM 50 MG TABLET PO SCH ×2 (08:36→19:57)
[2023-05-12] MEDS: CIPROFLOXACIN HCL 250 MG TAB PO SCH ×2 (09:41→19:57)
--- NOTE | 2023-05-12 11:49 | P.PN ---
Date of Service: 05/12/23 Vital Signs Temp Pulse Resp BP Pulse Ox 96.8 F 60 18 153/60 H 96 05/12/23 07:18 05/12/23 08:38 05/12/23 08:32 05/12/23 08:38 05/12/23 08:32 Medications Hydrocodone Bitart/Acetaminophen (Hydrocodone/Apap 5/325 Mg Tab) 1 tab PO Q4H PRN PRN Reason: Pain scale 8-10 (Severe) Last Admin: 05/12/23 05:30 Dose: 1 tab Albuterol Sulfate (Albuterol 2.5 Mg/3 Ml Neb Mildred) 2.5 mg NEB [id number] PRN PRN Reason: WHEEZING Last Admin: 05/11/23 14:54 Dose: 2.5 mg Amlodipine Besylate (Amlodipine 5 Mg Tab) 5 mg PO DAILY [facility] Last Admin: 05/12/23 07:33 Dose: 5 mg Apixaban (Apixaban 2.5 Mg Tablet) 2.5 mg PO BID [facility] Last Admin: 05/12/23 07:36 Dose: 2.5 mg Ascorbic Acid (Ascorbic Acid 500 Mg Tablet) 500 mg PO BID [facility] Last Admin: 05/12/23 07:36 Dose: 500 mg Aspirin (Aspirin 81 Mg Chewable Tablet) 81 mg PO DAILY [facility] Last Admin: 05/12/23 07:36 Dose: 81 mg Atorvastatin Calcium (Atorvastatin 80 Mg Tab) 80 mg PO BEDTIME [facility] Last Admin: 05/11/23 19:58 Dose: 80 mg Ciprofloxacin (Ciprofloxacin Hcl 250 Mg Tab) 250 mg PO BID [facility]; Protocol Stop: 05/21/23 08:01 Last Admin: 05/12/23 09:41 Dose: 250 mg Cyanocobalamin (Cyanocobalamin 1,000 Mcg Tab) 2,000 mcg PO DAILY [facility] Last Admin: 05/12/23 07:36 Dose: 2,000 mcg Cyclobenzaprine HCl (Cyclobenzaprine 10 Mg Tab) 5 mg PO BID PRN PRN Reason: MUSCLE SPASMS Docusate Sodium (Docusate Na 100 Mg Cap) 100 mg PO DAILY [facility] Last Admin: 05/12/23 07:36 Dose: 100 mg Ezetimibe (Ezetimibe 10 Mg Tab) 10 mg PO DAILY [facility] Last Admin: 05/12/23 07:35 Dose: 10 mg Enteral Nutritional Formula (Glucerna Shake 237 Ml Can) 237 ml PO BID [facility] Last Admin: 05/12/23 07:38 Dose: Not Given Ferrous Sulfate (Ferrous Sulfate 325 Mg Tab) 325 mg PO DAILY [facility] Last Admin: 05/12/23 07:35 Dose: 325 mg Furosemide (Furosemide 40 Mg Tablet) 40 mg PO BIDL [facility] Last Admin: 05/12/23 07:34 Dose: 40 mg Gabapentin (Gabapentin 100 Mg Cap) 100 mg PO BID [facility] Last Admin: 05/12/23 07:35 Dose: 100 mg Glucagon (Glucagon 1 Mg/Vial) 1 mg IM 1X PRN; Protocol PRN Reason: HYPOGLYCEMIA Guaifenesin (Guaifenesin 100 Mg/5 Ml Ucup) 200 mg PO QID PRN PRN Reason: COUGH Last Admin: 05/12/23 00:18 Dose: 200 mg Dextrose (Dextrose 10% Water Iv Soln.) 125 mls @ 0 mls/hr IV PRN PRN; Protocol PRN Reason: HYPOGLYCEMIA Insulin Glargine (Insulin Glargine 100 Unit/Ml) 50 unit SQ BEDTIME [facility] Last Admin: 05/11/23 19:57 Dose: 50 unit Insulin Human Regular (Insulin -Regular Human 50 Unit/0.5 Ml Ml) 0 unit SQ ACHS [facility]; Protocol Last Admin: 05/12/23 11:18 Dose: Not Given Isosorbide Mononitrate (Isosorbide Bonner Sr 30 Mg Tab) 30 mg PO DAILY [facility] Last Admin: 05/12/23 08:36 Dose: 30 mg Latanoprost (Latanoprost 0.005% 2.5ml Opth) 1 drops OPTH BEDTIME [facility] Last Admin: 05/11/23 19:57 Dose: 1 drops Levothyroxine Sodium (Levothyroxine Sod 0.05 Mg Tablet) 0.05 mg PO DAILYAC [facility] Last Admin: 05/12/23 05:30 Dose: 0.05 mg Loratadine (Loratadine 10 Mg Tab) 10 mg PO DAILY [facility] Last Admin: 05/12/23 07:36 Dose: 10 mg Losartan Potassium (Losartan Potassium 50 Mg Tablet) 50 mg PO BID [facility] Last Admin: 05/12/23 08:36 Dose: 50 mg Magnesium Hydroxide (Magnesium Hydroxide 8% 30 Ml) 30 ml PO DAILY PRN PRN Reason: CONSTIPATION Last Admin: 05/11/23 03:21 Dose: 30 ml Metoprolol Succinate (Metoprolol Xl 25 Mg Tab) 25 mg PO 0600,1800 [facility] Last Admin: 05/12/23 05:30 Dose: 25 mg Multivitamins/Iron (Fe Sulf/Fa/Vit B Comp & C Tab) 1 tab PO DAILY WITH BREAKFAST [facility] Last Admin: 05/12/23 07:36 Dose: 1 tab Multivitamins/Minerals (Multivitamin Tab) 1 tab PO DAILY [facility] Last Admin: 05/12/23 07:35 Dose: 1 tab Pantoprazole Sodium (Pantoprazole 40mg Tablet) 40 mg PO DAILY@0730 [facility]; Protoc ol Last Admin: 05/12/23 07:32 Dose: 40 mg Senna/Docusate Sodium (Docusate Na/Senna Conc 1 Tab) 2 tab PO BEDTIME [facility] Last Admin: 05/11/23 19:58 Dose: 2 tab Spironolactone (Spironolactone 25 Mg Tablet) 25 mg PO DAILY [facility] Last Admin: 05/12/23 07:34 Dose: 25 mg Tramadol HCl (Tramadol Hcl 50 Mg Tab) 50 mg PO Q6H PRN PRN Reason: Pain scale 5-7 (Moderate) Last Admin: 05/12/23 07:37 Dose: 50 mg Lab Results (last 24 hrs) 05/12/23 11:17: POC Glucose 135 H 05/12/23 07:31: POC Glucose 211 H 05/11/23 18:50: POC Glucose 258 H 05/11/23 16:40: POC Glucose 213 H Microbiology Results 05/06/23 23:02 Clean Catch Urine [place] Count - Final >100,000 CFU/ML. 05/06/23 23:02 Clean Catch Urine - Final Pseudomonas Aeruginosa Assessment/ Plan: Nephrology No dyspnea No chest pain No acute events overnight Vitals, medications, blood work and imaging reviewed in the chart. NAD. Obese. NCAT. Normal respiratory effort. RRR. ND Abd. No C/C. LE Edema 2+. No rash. AAO. Normal speech. EXAM DESCRIPTION: RAD - Chest Single View - 05/10/2023 9:54 am CLINICAL HISTORY: increase coughing, wheezing Chest pain. COMPARISON: Chest Single View dated 05/08/2023; Abdomen 1 View (KUB) dated 05/07/2023 FINDINGS: Portable technique limits examination quality. Mild pulmonary edema is noted. The heart is moderately enlarged. No displaced fractures.Aortic atherosclerosis. IMPRESSION: Mild to moderate CHF. Stage I DINA likely CRS CKD IIIB with proteinuria -No NSAIDs Hyponatremia -Change Lasix to Torsemide HTN with CKD/ CHF -Continue Amlodipine & Losartan Diastolic CHF, A/C LE Edema -Change Lasix to Torsemide -Continue Spironolactone -Low sodium diet -Daily weight DM II with CKD -No sugar diet -Continue Nesina -RISS Anemia in chronic illness -Monitor H&H Temp Pulse Resp BP Pulse Ox 96.8 F 60 18 153/60 H 96 05/12/23 07:18 05/12/23 08:38 05/12/23 08:32 05/12/23 08:38 05/12/23 08:32 Hydrocodone Bitart/Acetaminophen (Hydrocodone/Apap 5/325 Mg Tab) 1 tab PO Q4H PRN PRN Reason: Pain scale 8-10 (Severe) Last Admin: 05/12/23 05:30 Dose: 1 tab Albuterol Sulfate (Albuterol 2.5 Mg/3 Ml Neb Mildred) 2.5 mg NEB [id number] PRN PRN Reason: WHEEZING Last Admin: 05/11/23 14:54 Dose: 2.5 mg Amlodipine Besylate (Amlodipine 5 Mg Tab) 5 mg PO DAILY [facility] Last Admin: 05/12/23 07:33 Dose: 5 mg Apixaban (Apixaban 2.5 Mg Tablet) 2.5 mg PO BID [facility] Last Admin: 05/12/23 07:36 Dose: 2.5 mg Ascorbic Acid (Ascorbic Acid 500 Mg Tablet) 500 mg PO BID [facility] Last Admin: 05/12/23 07:36 Dose: 500 mg Aspirin (Aspirin 81 Mg Chewable Tablet) 81 mg PO DAILY [facility] Last Admin: 05/12/23 07:36 Dose: 81 mg Atorvastatin Calcium (Atorvastatin 80 Mg Tab) 80 mg PO BEDTIME [facility] Last Admin: 05/11/23 19:58 Dose: 80 mg Ciprofloxacin (Ciprofloxacin Hcl 250 Mg Tab) 250 mg PO BID [facility]; Protocol Stop: 05/21/23 08:01 Last Admin: 05/12/23 09:41 Dose: 250 mg Cyanocobalamin (Cyanocobalamin 1,000 Mcg Tab) 2,000 mcg PO DAILY [facility] Last Admin: 05/12/23 07:36 Dose: 2,000 mcg Cyclobenzaprine HCl (Cyclobenzaprine 10 Mg Tab) 5 mg PO BID PRN PRN Reason: MUSCLE SPASMS Docusate Sodium (Docusate Na 100 Mg Cap) 100 mg PO DAILY [facility] Last Admin: 05/12/23 07:36 Dose: 100 mg Ezetimibe (Ezetimibe 10 Mg Tab) 10 mg PO DAILY [facility] Last Admin: 05/12/23 07:35 Dose: 10 mg Enteral Nutritional Formula (Glucerna Shake 237 Ml Can) 237 ml PO BID [facility] Last Admin: 05/12/23 07:38 Dose: Not Given Ferrous Sulfate (Ferrous Sulfate 325 Mg Tab) 325 mg PO DAILY [facility] Last Admin: 05/12/23 07:35 Dose: 325 mg Furosemide (Furosemide 40 Mg Tablet) 40 mg PO BIDL [facility] Last Admin: 05/12/23 07:34 Dose: 40 mg Gabapentin (Gabapentin 100 Mg Cap) 100 mg PO BID [facility] Last Admin: 05/12/23 07:35 Dose: 100 mg Glucagon (Glucagon 1 Mg/Vial) 1 mg IM 1X PRN; Protocol PRN Reason: HYPOGLYCEMIA Guaifenesin (Guaifenesin 100 Mg/5 Ml Ucup) 200 mg PO QID PRN PRN Reason: COUGH Last Admin: 05/12/23 00:18 Dose: 200 mg Dextrose (Dextrose 10% Water Iv Soln.) 125 mls @ 0 mls/hr IV PRN PRN; Protocol PRN Reason: HYPOGLYCEMIA Insulin Glargine (Insulin Glargine 100 Unit/Ml) 50 unit SQ BEDTIME [facility] Last Admin: 05/11/23 19:57 Dose: 50 unit Insulin Human Regular (Insulin -Regular Human 50 Unit/0.5 Ml Ml) 0 unit SQ ACHS [facility]; Protocol Last Admin: 05/12/23 11:18 Dose: Not Given Isosorbide Mononitrate (Isosorbide Bonner Sr 30 Mg Tab) 30 mg PO DAILY [facility] Last Admin: 05/12/23 08:36 Dose: 30 mg Latanoprost (Latanoprost 0.005% 2.5ml Opth) 1 drops OPTH BEDTIME [facility] Last Admin: 05/11/23 19:57 Dose: 1 drops Levothyroxine Sodium (Levothyroxine Sod 0.05 Mg Tablet) 0.05 mg PO DAILYAC [facility] Last Admin: 05/12/23 05:30 Dose: 0.05 mg Loratadine (Loratadine 10 Mg Tab) 10 mg PO DAILY [facility] Last Admin: 05/12/23 07:36 Dose: 10 mg Losartan Potassium (Losartan Potassium 50 Mg Tablet) 50 mg PO BID [facility] Last Admin: 05/12/23 08:36 Dose: 50 mg Magnesium Hydroxide (Magnesium Hydroxide 8% 30 Ml) 30 ml PO DAILY PRN PRN Reason: CONSTIPATION Last Admin: 05/11/23 03:21 Dose: 30 ml Metoprolol Succinate (Metoprolol Xl 25 Mg Tab) 25 mg PO 0600,1800 [facility] Last Admin: 05/12/23 05:30 Dose: 25 mg Multivitamins/Iron (Fe Sulf/Fa/Vit B Comp & C Tab) 1 tab PO DAILY WITH BREAKFAST [facility] Last Admin: 05/12/23 07:36 Dose: 1 tab Multivitamins/Minerals (Multivitamin Tab) 1 tab PO DAILY [facility] Last Admin: 05/12/23 07:35 Dose: 1 tab Pantoprazole Sodium (Pantoprazole 40mg Tablet) 40 mg PO DAILY@0730 [facility]; Protocol Last Admin: 05/12/23 07:32 Dose: 40 mg Senna/Docusate Sodium (Docusate Na/Senna Conc 1 Tab) 2 tab PO BEDTIME [facility] Last Admin: 05/11/23 19:58 Dose: 2 tab Spironolactone (Spironolactone 25 Mg Tablet) 25 mg PO DAILY [facility] Last Admin: 05/12/23 07:34 Dose: 25 mg Tramadol HCl (Tramadol Hcl 50 Mg Tab) 50 mg PO Q6H PRN PRN Reason: Pain scale 5-7 (Moderate) Last Admin: 05/12/23 07:37 Dose: 50 mg Medication Instructions Recorded Amlodipine [Norvasc] 5 mg PO DAILY 05/06/23 Ascorbic Acid 500 mg PO BID 05/06/23 Aspirin Chewable [Aspirin 81 mg PO DAILY 05/06/23 Chewable*] Atorvastatin Calcium [Lipitor] 80 mg PO BEDTIME 05/06/23 Cyanocobalamin [Vitamin B-12] 2,500 mcg SL DAILY 05/06/23 Cyclobenzaprine [Flexeril*] 5 mg PO TID 05/06/23 Ezetimibe [Zetia] 10 mg PO DAILY 05/06/23 Furosemide [Lasix] 40 mg PO DAILY 05/06/23 Insulin Glargine,Hum.rec.anlog 44 unit SQ DAILY 05/06/23 [Basaglevelin Back U-100] Isosorbide Mononitrate [Isosorbide 30 mg PO DAILY 05/06/23 Mononitrate ER] Latanoprost Ophth [Xalatan 0.005%*] 1 gtt EACH EYE BEDTIME 05/06/23 Levothyroxine [Synthroid*] 50 mcg PO DAILY 05/06/23 Lidocaine 4% Patch [Lidoderm 5% 1 patch TD DAILY 05/06/23 Patch] Losartan Potassium [Cozaar] 100 mg PO DAILY 05/06/23 Magnesium Oxide [Mag 0X*] 250 mg PO DAILY 05/06/23 Metoprolol Succinate [Toprol Xl] 25 mg PO BID 05/06/23 Multivit-Minerals/Folic Acid 120 mcg PO DAILY 05/06/23 [Centrum Adult 50 Fresh-Fruity] Omeprazole [Prilosec] 40 mg PO DAILY 05/06/23 Sitagliptin Phosphate [Januvia] 50 mg PO DAILY 05/06/23 Spironolactone [Aldactone] 25 mg PO DAILY 05/06/23
[2023-05-12] MEDS: TORSEMIDE 20 MG TAB PO SCH (16:54)
[2023-05-12] MEDS ORDERED: FUROSEMIDE 40 MG TABLET PO PRN (19:08)
[2023-05-12] MEDS: LATANOPROST 0.005% 2.5ML OPTH OPTH SCH (19:56)
[2023-05-12] MEDS: ATORVASTATIN 80 MG TAB PO SCH (19:57)
[2023-05-12] MEDS: DOCUSATE NA/SENNA CONC 1 TAB PO SCH (19:57)
[2023-05-12] MEDS: INSULIN GLARGINE 100 UNIT/ML SQ SCH (19:58)
[2023-05-12] MEDS: ALBUTEROL 2.5 MG/3 ML NEB SOL NEB PRN (20:10)
--- NOTE | 2023-05-12 20:26 | RAD REPORT ---
EXAM DESCRIPTION: RADChest Single View05/12/2023 8:05 pm CLINICAL HISTORY: sob COMPARISON: Chest Single View dated 05/10/2023; Chest Single View dated 05/08/2023; Abdomen 1 View ([facility] B) dated 05/07/2023; Spine Lumbar Wo Con dated 10/11/2020 TECHNIQUE: Portable AP view of the chest. FINDINGS: Central prominent interstitium, unchanged. The lungs show no focal airspace opacity. No p neumothorax or effusion. The cardiomediastinal contours are unremarkable. IMPRESSION: Stable interstitial central prominence. No other acute abnormalities.
--- NOTE | 2023-05-12 20:58 | PN ---
Date of Progress Note: 05/12/2023 Time Of Service: 1 p.m. Subjective: Ms. Murrell is resting in bed. She has no significant complaints. She reports her pain is well managed in the lower back where she has had recent surgery; however, there is some issue wit h potential swelling in the legs and she has had the Renal Service on board, who has helped with adju stments and diuretic medications, and she has had recent repeat chest x-ray after chest x-ray on the showed mild pulmonary edema. The study on the was compared to multiple x-rays from 05/10, 05/08, 05/07, and from 11/10/2020. The study shows a stable interstitial central prominence, no othe r acute abnormalities identified. Review of Systems: Again, sensation of mild shortness of breath despite oxygen saturation being 96% on 2 L. Otherwise, no fevers, no chills. No significant myalgias. There is mild back pain and mild arthralgias. No ra sh. No active psychiatric issues. No gastrointestinal or genitourinary issues. Physical Examination: Vital Signs: Blood pressure 144/63, pulse 69, respiratory rate 16, temperature 97.8, oxygen saturati on 96% room air. General: Ms. Murrell is resting in bed between therapy sessions. HEENT: She is normocephalic, atraumatic. Sclerae anicteric. Oropharynx pink and moist. Neck: Supple. Chest: Clear. Heart: Regular. Extremities: Show no significant edema, cyanosis, or clubbing. She does have diffuse weakness of he r lower extremities and some back pain because of her recent surgery in the lower back. Laboratory Studies: White blood cell 11.8 with hemoglobin 8.9, platelets 325. Glucose ranged from 1 35 to 264. Urinalysis on the showed trace blood, 500 esterase, 1+ total protein. Her urine cul tures on did grow Pseudomonas aeruginosa. She is treated by the Renal Service and has received ciprofloxacin 250 mg twice daily based on her renal functioning. Medications: [place] 5/325 every 4 hours as needed, albuterol nebulizer 2.5 mg every 6 hours as needed , Norvasc 5 mg daily, Eliquis 2.5 mg twice daily, vitamin C 500 mg twice daily, aspirin 81 mg daily, Lipitor 80 mg at bedtime, ciprofloxacin 5 mg twice daily from the to , vitamin B12 2000 mcg daily, Flexeril 5 mg twice daily, Colace 100 mg twice daily, Zetia 10 mg daily, ferrous sulfate 325 m g daily, Lasix 40 mg daily as needed, gabapentin 100 mg twice daily, perphenazine as needed, Semglee insulin 50 units at bedtime, Imdur 30 mg daily, Claritin 10 mg daily, Synthroid 0.05 mg daily, Cozaar 50 mg twice daily, milk of magnesia 30 mL as needed daily for constipation, metoprolol 25 mg twice d aily, Hemocyte-Plus 1 tablet daily, multivitamin 1 tablet daily, Protonix 40 mg daily, Senokot-S 2 at bedtime, Aldactone 25 mg daily, torsemide 40 mg twice daily, Ultram 50 mg 6 hours as needed. Current Functional Status: Today, she ambulated 250 feet twice and 175 feet twice, another 150 feet once with a rolling walker and standby assistance. She ascended and descended [address] then [address] eps using both hands with contact guard assistance on the bilateral hand rails. Multiple supine-to-s it transfers done with standby assistance. Sit to stand transfers with standby assistance both using a rolling walker. She was independent with bed mobilization and ambulating around the room to the [facility] shower with a rolling walker. Supervision for toileting, bathing upper body and lower body enzo ssing along with foot wear. Progress Towards Rehabilitation Goals: Ms. Murrell is making great progress towards the rehabilitati on goals of becoming independent with upper and lower body dressing, transferring, toileting, ambulat ing 500 feet with modified independence, up and down 10 steps with modified independence and continue d to perform cognitive functioning with modified independence. In addition, she is having medical co morbid conditions managed by the Renal Service. Assessment: Ms. Murrell is an 82-year-old patient in the rehabilitation unit with a transforaminal l umbar interbody fusion at L4-5, who is doing very well with her physical and occupational therapy. S he has comorbid renal insufficiency, aortic stenosis, coronary artery disease, decreased mobility, di abetes mellitus type 2, hypertension, hyperkalemia, hypothyroidism, metabolic acidosis, morbid obesit y, obstructive sleep apnea. Plan: 1.Continue with physical and occupational therapy for 3 hours a day, 5 of 7 days. 2.Her comorbid conditions are managed with the help of the Renal Service by medications that are lis jamari, which addressed each comorbid noted above. Note recent chest x-ray does not show a worsening charlotte ng function, but she does have that sensation of shortness of breath and swelling and not necessarily by the x-ray and by oxygen saturation. The patient may have some degree of anxiety contributing to symptoms. She will have incentive spirometry encouraged and again continue with nebulizer treatment as needed. Comorbidities That Are Continuing To Impact Rehabilitation Process: The patient has some degree of a nxiety, which may be impacting her ability to drive and do very well as the oxygen saturation, chest x-ray and blood work do not necessarily show any significant reason for any shortness of breath or co ngestive heart failure exacerbation. She is doing well otherwise and will be encouraged and may have adjustments of any medication for mood if need be. LB/MODL Voice ID: [id number] Report ID: [id number]
[2023-05-13 04:31] LABS: Absolute Lymphocytes (CBC) 1.9 K/uL (0.7-4.9); Hematocrit 25.6 % (36.0-45.0); Lymphocytes % 14.5 % (15.3-44.8); MCV 88.9 fL (80-100); MPV 8.7 fL (7.6-11.3); RBC Red Blood Cell Count 2.87 M/uL (3.86-4.86)
[2023-05-13 04:42] LABS: Albumin 2.5 g/dL (3.4-5.0); Bilirubin Total 0.2 mg/dL (0.2-1.0); Phosphorus 4.2 mg/dL (2.5-4.9); Protein, Total 6.6 g/dL (6.4-8.2); Uric Acid 10.6 mg/dL (2.6-6.0)
[2023-05-13] MEDS: METOPROLOL XL 25 MG TAB PO SCH ×2 (05:24→17:15)
[2023-05-13] MEDS: LEVOTHYROXINE SOD 0.05 MG TABLET PO SCH (05:24)
[2023-05-13] MEDS: PANTOPRAZOLE 40MG TABLET PO SCH (07:07)
[2023-05-13] MEDS: FE SULF/FA/VIT B COMP & C TAB PO SCH (07:35)
[2023-05-13] MEDS: FERROUS SULFATE 325 MG TAB PO SCH (07:35)
[2023-05-13] MEDS: ALOGLIPTIN BENZOATE 12.5 MG TABLET PO SCH (07:35)
[2023-05-13] MEDS: ASPIRIN 81 MG CHEWABLE TABLET PO SCH (07:35)
[2023-05-13] MEDS: GABAPENTIN 100 MG CAP PO SCH ×2 (07:36→19:36)
[2023-05-13] MEDS: SPIRONOLACTONE 25 MG TABLET PO SCH (07:36)
[2023-05-13] MEDS: DOCUSATE NA 100 MG CAP PO SCH (07:36)
[2023-05-13] MEDS: APIXABAN 2.5 MG TABLET PO SCH ×2 (07:36→19:36)
[2023-05-13] MEDS: ASCORBIC ACID 500 MG TABLET PO SCH ×2 (07:36→19:36)
[2023-05-13] MEDS: AMLODIPINE 5 MG TAB PO SCH (07:36)
[2023-05-13] MEDS: EZETIMIBE 10 MG TAB PO SCH (07:36)
[2023-05-13] MEDS: MULTIVITAMIN TAB PO SCH (07:37)
[2023-05-13] MEDS: TORSEMIDE 20 MG TAB PO SCH ×2 (07:37→17:14)
[2023-05-13] MEDS: LORATADINE 10 MG TAB PO SCH (07:37)
[2023-05-13] MEDS: CYANOCOBALAMIN 1,000 MCG TAB PO SCH (07:37)
[2023-05-13] MEDS: INSULIN -REGULAR HUMAN 50 UNIT/0.5 ML ML SQ SCH ×4 (07:44→21:04)
[2023-05-13] MEDS: GLUCERNA SHAKE 237 ML CAN PO SCH ×2 (08:00→19:36)
[2023-05-13] MEDS: guaiFENesin 100 MG/5 ML UCUP PO PRN ×2 (09:11→19:36)
[2023-05-13] MEDS: ISOSORBIDE MONO SR 30 MG TAB PO SCH (09:12)
[2023-05-13] MEDS: CIPROFLOXACIN HCL 250 MG TAB PO SCH ×2 (09:12→19:35)
[2023-05-13] MEDS: LOSARTAN POTASSIUM 50 MG TABLET PO SCH ×2 (09:12→19:36)
[2023-05-13] MEDS: MAGNESIUM OXIDE 400 MG TAB PO SCH ×2 (13:37→19:36)
[2023-05-13] MEDS: MAGNESIUM HYDROXIDE 8% 30 ML PO PRN (15:17)
--- NOTE | 2023-05-13 16:28 | PN ---
Date of Progress Note: 05/13/2023 Time Of Service: 1 p.m. Subjective: Ms. Murrell is resting in bed. She has no new complaints. She has just mild pain in th e notch area in the lower back at her surgical site. Otherwise, she is doing very well. Review of Systems: No shortness of breath. Again, mild pain in the back at the surgical site. Otherwise, no rash. No psychiatric complaints. No gastrointestinal or genitourinary issues. No difficulty with sleep. Physical Examination: Vital Signs: Blood pressure 152/52, pulse respiratory rate 16, temperature 97.1, ox saturation 93% o n room air. General: Ms. Murrell is resting comfortably in bed in between therapy sessions. HEENT: She is normocephalic, atraumatic. Sclerae anicteric. Oropharynx is moist. Neck: Supple. Chest: Clear. Heart: Regular rate and rhythm. Extremities: No significant edema or cyanosis. She has no focal deficits, just diffuse weakness in the lower extremity. Significant pain at the back area rated actually 1/10, currently 0 to 1. Laboratory Studies: White blood cell count 13, neutrophils 72, lymphocytes 14.5, hemoglobin 8.4. So dium 131, potassium 5.0, chloride 94, carbon dioxide 31, BUN 70, creatinine 1.87. Creatinine on the 16th was 1.78 and on the 17 2.04, on the 2.14. Glucose ranged from 173 to 198. Uric acid alice vated to 10.6, alkaline phosphatase elevated to 119, albumin 2.5. Prealbumin was 13.0 on the 15th. X-ray/imaging: Chest x-ray from the , which was compared to multiple chest x-rays from 05/10, , 05/07, and 10/11/2020 shows stable interstitial central prominence. No other acute abnormalitie s. Medications: Medications have been reviewed and remained unchanged over the last day. Current Functional Status: Today, she ambulated 250 feet twice, another 150 feet twice and 100 feet with a rolling walker and standby assistance. She ascended and descended 15 steps with bilateral gomez drails with standby assistance. Ductdt-aw-dfi transfers using bed rails done independently. She did multiple evn-th-aysvm transfers independently with a rolling walker. With occupational therapy, ind ependent transfers for sit to stand and ambulate around the room to the gym with a rolling walker ind ependently without a rest break. She is independent with toilet transfers. Progress Towards Rehabilitation Goals: Ms. Murrell is making excellent progress towards her goals of becoming independent with upper and lower body dressing, transferring, toileting, showering, ambulat ing 500 feet with independence, up and down 10-15 steps with independence and performing all activiti es of daily living with independence. Assessment: Ms. Murrell is an 82-year-old patient in the rehabilitation unit with a transforaminal l umbar interbody fusion of L4-5. She is doing excellent with physical and occupational therapy. Her comorbid conditions are stably managed including chronic renal insufficiency, aortic stenosis, espinoza ry artery disease, diabetes mellitus type 2, hypertension, hyperkalemia, hypothyroidism, morbid obesi ty, and obstructive sleep apnea. Plan: 1.Continue with physical and occupational therapy for 3 hours a day, 5 of 7 days. 2.Multiple conditions are managed including the renal condition by the Renal Service is assisting. Lungs are evaluated by chest x-ray showed no worsening over many prior chest x-rays. She also has in centive spirometry to encourage her to improve her pulmonary function. She has Semglee for diabetes mellitus, continuing Synthroid for hypothyroidism, continue magnesium for muscle spasms. She has spi ronolactone for fluid management, Senokot-S for constipation, and Ultram as needed for pain. Comorbids That Continue To Impact Rehabilitation Process: At this point, she does not have any comor bidities that negatively impact her because Renal Service is managing her kidney function, which is d oing well. She is thriving the pain that is managed, sleeping and eating, and bowel movements are well ma naged. LB/MODL Voice ID: [id number] Report ID: [id number]
[2023-05-13] MEDS: HYDROCODONE/APAP 5/325 MG TAB PO PRN (19:35)
[2023-05-13] MEDS: LATANOPROST 0.005% 2.5ML OPTH OPTH SCH (19:35)
[2023-05-13] MEDS: DOCUSATE NA/SENNA CONC 1 TAB PO SCH (19:35)
[2023-05-13] MEDS: ATORVASTATIN 80 MG TAB PO SCH (19:36)
[2023-05-13] MEDS ORDERED: INSULIN GLARGINE 100 UNIT/ML SQ SCH (21:00)
[2023-05-13] MEDS ORDERED: TAMSULOSIN 0.4 MG SR CAP PO SCH (21:00)
--- NOTE | 2023-05-13 22:25 | P.PN ---
Date of Service: 05/13/23 Vital Signs Temp Pulse Resp BP Pulse Ox 97.3 F 72 18 134/59 L 93 05/13/23 20:11 05/13/23 20:11 05/13/23 20:34 05/13/23 20:11 05/13/23 20:11 Medications Hydrocodone Bitart/Acetaminophen (Hydrocodone/Apap 5/325 Mg Tab) 1 tab PO Q4H PRN PRN Reason: Pain scale 8-10 (Severe) Last Admin: 05/13/23 19:35 Dose: 1 tab Albuterol Sulfate (Albuterol 2.5 Mg/3 Ml Neb Mildred) 2.5 mg NEB [id number] PRN PRN Reason: WHEEZING Last Admin: 05/12/23 20:10 Dose: 2.5 mg Amlodipine Besylate (Amlodipine 5 Mg Tab) 5 mg PO DAILY [facility] Last Admin: 05/13/23 07:36 Dose: 5 mg Apixaban (Apixaban 2.5 Mg Tablet) 2.5 mg PO BID [facility] Last Admin: 05/13/23 19:36 Dose: 2.5 mg Ascorbic Acid (Ascorbic Acid 500 Mg Tablet) 500 mg PO BID [facility] Last Admin: 05/13/23 19:36 Dose: 500 mg Aspirin (Aspirin 81 Mg Chewable Tablet) 81 mg PO DAILY [facility] Last Admin: 05/13/23 07:35 Dose: 81 mg Atorvastatin Calcium (Atorvastatin 80 Mg Tab) 80 mg PO BEDTIME [facility] Last Admin: 05/13/23 19:36 Dose: 80 mg Ciprofloxacin (Ciprofloxacin Hcl 250 Mg Tab) 250 mg PO BID [facility]; Protocol Stop: 05/21/23 08:01 Last Admin: 05/13/23 19:35 Dose: 250 mg Cyanocobalamin (Cyanocobalamin 1,000 Mcg Tab) 2,000 mcg PO DAILY [facility] Last Admin: 05/13/23 07:37 Dose: 2,000 mcg Cyclobenzaprine HCl (Cyclobenzaprine 10 Mg Tab) 5 mg PO BID PRN PRN Reason: MUSCLE SPASMS Docusate Sodium (Docusate Na 100 Mg Cap) 100 mg PO DAILY [facility] Last Admin: 05/13/23 07:36 Dose: 100 mg Ezetimibe (Ezetimibe 10 Mg Tab) 10 mg PO DAILY [facility] Last Admin: 05/13/23 07:36 Dose: 10 mg Enteral Nutritional Formula (Glucerna Benedictke 237 Ml Can) 237 ml PO BID [facility] Last Admin: 05/13/23 19:36 Dose: 237 ml Ferrous Sulfate (Ferrous Sulfate 325 Mg Tab) 325 mg PO DAILY [facility] Last Admin: 05/13/23 07:35 Dose: 325 mg Furosemide (Furosemide 40 Mg Tablet) 40 mg PO DAILY PRN PRN Reason: (+)1-2 legs edema Last Admin: 05/13/23 11:45 Dose: 40 mg Gabapentin (Gabapentin 100 Mg Cap) 100 mg PO BID [facility] Last Admin: 05/13/23 19:36 Dose: 100 mg Glucagon (Glucagon 1 Mg/Vial) 1 mg IM 1X PRN; Protocol PRN Reason: HYPOGLYCEMIA Guaifenesin (Guaifenesin 100 Mg/5 Ml Ucup) 200 mg PO QID PRN PRN Reason: COUGH Last Admin: 05/13/23 19:36 Dose: 200 mg Dextrose (Dextrose 10% Water Iv Soln.) 125 mls @ 0 mls/hr IV PRN PRN; Protocol PRN Reason: HYPOGLYCEMIA Insulin Glargine (Insulin Glargine 100 Unit/Ml) 60 unit SQ BEDTIME [facility] Last Admin: 05/13/23 21:04 Dose: 60 unit Insulin Human Regular (Insulin -Regular Human 50 Unit/0.5 Ml Ml) 0 unit SQ ACHS [facility]; Protocol Last Admin: 05/13/23 21:04 Dose: 7 unit Isosorbide Mononitrate (Isosorbide Pratt Sr 30 Mg Tab) 30 mg PO DAILY [facility] Last Admin: 05/13/23 09:12 Dose: 30 mg Latanoprost (Latanoprost 0.005% 2.5ml Opth) 1 drops OPTH BEDTIME [facility] Last Admin: 05/13/23 19:35 Dose: 1 drops Levothyroxine Sodium (Levothyroxine Sod 0.05 Mg Tablet) 0.05 mg PO DAILYAC [facility] Last Admin: 05/13/23 05:24 Dose: 0.05 mg Loratadine (Loratadine 10 Mg Tab) 10 mg PO DAILY [facility] Last Admin: 05/13/23 07:37 Dose: 10 mg Losartan Potassium (Losartan Potassium 50 Mg Tablet) 50 mg PO BID [facility] Last Admin: 05/13/23 19:36 Dose: 50 mg Magnesium Hydroxide (Magnesium Hydroxide 8% 30 Ml) 30 ml PO DAILY PRN PRN Reason: CONSTIPATION Last Admin: 05/13/23 15:17 Dose: 30 ml Magnesium Oxide (Magnesium Oxide 400 Mg Tab) 400 mg PO BID [facility] Last Admin: 05/13/23 19:36 Dose: 400 mg Metoprolol Succinate (Metoprolol Xl 25 Mg Tab) 25 mg PO 0600,1800 [facility] Last Admin: 05/13/23 17:15 Dose: 25 mg Multivitamins/Iron (Fe Sulf/Fa/Vit B Comp & C Tab) 1 tab PO DAILY WITH BREAKFAST [facility] Last Admin: 05/13/23 07:35 Dose: 1 tab Multivitamins/Minerals (Multivitamin Tab) 1 tab PO DAILY [facility] Last Admin: 05/13/23 07:37 Dose: 1 tab Pantoprazole Sodium (Pantoprazole 40mg Tablet) 40 mg PO DAILY@0730 [facility]; Protocol Last Admin: 05/13/23 07:07 Dose: 40 mg Senna/Docusate Sodium (Docusate Na/Senna Conc 1 Tab) 2 tab PO BEDTIME [facility] Last Admin: 05/13/23 19:35 Dose: 2 tab Spironolactone (Spironolactone 25 Mg Tablet) 25 mg PO DAILY [facility] Last Admin: 05/13/23 07:36 Dose: 25 mg Torsemide (Torsemide 20 Mg Tab) 40 mg PO BIDL [facility] Last Admin: 05/13/23 17:14 Dose: 40 mg Tramadol HCl (Tramadol Hcl 50 Mg Tab) 50 mg PO Q6H PRN PRN Reason: Pain scale 5-7 (Moderate) Last Admin: 05/12/23 21:06 Dose: 50 mg Lab Results (last 24 hrs) 05/13/23 20:59: POC Glucose 268 H 05/13/23 16:53: POC Glucose 235 H 05/13/23 11:32: POC Glucose 184 H 05/13/23 07:41: POC Glucose 173 H 05/13/23 03:50: Sodium 131 L, Potassium 5.0, Chloride 94 L, Carbon Dioxide 31, Anion Gap 11.0, BUN 70 H, Creatinine 1.87 H, Est GFR (CKD-EPI) 27 L, Glucose 198 H, Uric Acid 10.6 H, Calcium 9.3, Phosphorus 4.2, Total Bilirubin 0.2, AST 20, ALT 18, Alkaline Phosphatase 119 H, NT-Pro-B Natriuret Pep 412, Serum Total Protein 6.6, Albumin 2.5 L, Globulin 4.1 H, Albumin/Globulin Ratio 0.6 L 05/13/23 03:50: WBC 13.00 H, RBC 2.87 L, Hgb 8.4 L, Hct 25.6 L, MCV 88.9, MCH 29.2, MCHC 32.9, RDW 16.1 H, Plt Count 353, MPV 8.7, Neutrophils % 72.0, Lymphocytes % 14.5 L, Monocytes % 9.0, Eosinophils % 4.1, Basophils % 0.4, Absolute Neutrophils 9.4 H, Absolute Lymphocytes 1.9, Absolute Monocytes 1.2, Absolute Eosinophils 0.5, Absolute Basophils 0.1 Microbiology Results 05/06/23 23:02 Clean Catch Urine [place] Count - Final >100,000 CFU/ML. 05/06/23 23:02 Clean Catch Urine - Final Pseudomonas Aeruginosa Assessment/ Plan: Nephrology No dyspnea No chest pain No acute events overnight Vitals, medications, blood work and imaging reviewed in the chart. NAD. Obese. NCAT. Normal respiratory effort. RRR. ND Abd. No C/C. LE Edema 2+. No rash. AAO. Normal speech. EXAM DESCRIPTION: RAD - Chest Single View - 05/10/2023 9:54 am CLINICAL HISTORY: increase coughing, wheezing Chest pain. COMPARISON: Chest Single View dated 05/08/2023; Abdomen 1 View (KUB) dated 05/07/2023 FINDINGS: Portable technique limits examination quality. Mild pulmonary edema is noted. The heart is moderately enlarged. No displaced fractures.Aortic atherosclerosis. IMPRESSION: Mild to moderate CHF. Stage I DINA likely CRS CKD IIIB with proteinuria -No NSAIDs Hyponatremia -Continue Torsemide HTN with CKD/ CHF -Continue Amlodipine & Losartan Diastolic CHF, A/C LE Edema -Continue Torsemide -Continue Spironolactone -Low sodium diet -Daily weight DM II with CKD -No sugar diet -Continue Nesina -RISS Anemia in chronic illness -Monitor H&H
[2023-05-14] MEDS: guaiFENesin 100 MG/5 ML UCUP PO PRN (00:27)
[2023-05-14] MEDS: LEVOTHYROXINE SOD 0.05 MG TABLET PO SCH (05:17)
[2023-05-14] MEDS: METOPROLOL XL 25 MG TAB PO SCH ×2 (05:17→17:08)
[2023-05-14] MEDS: GLUCERNA SHAKE 237 ML CAN PO SCH ×2 (08:00→20:53)
[2023-05-14] MEDS: GABAPENTIN 100 MG CAP PO SCH ×3 (08:00→20:53)
[2023-05-14] MEDS: CYANOCOBALAMIN 1,000 MCG TAB PO SCH (08:16)
[2023-05-14] MEDS: ISOSORBIDE MONO SR 30 MG TAB PO SCH (08:16)
[2023-05-14] MEDS: SPIRONOLACTONE 25 MG TABLET PO SCH (08:16)
[2023-05-14] MEDS: APIXABAN 2.5 MG TABLET PO SCH ×2 (08:17→20:53)
[2023-05-14] MEDS: AMLODIPINE 5 MG TAB PO SCH (08:17)
[2023-05-14] MEDS: LORATADINE 10 MG TAB PO SCH (08:18)
[2023-05-14] MEDS: MULTIVITAMIN TAB PO SCH (08:18)
[2023-05-14] MEDS: DOCUSATE NA 100 MG CAP PO SCH (08:19)
[2023-05-14] MEDS: EZETIMIBE 10 MG TAB PO SCH (08:19)
[2023-05-14] MEDS: ASPIRIN 81 MG CHEWABLE TABLET PO SCH (08:19)
[2023-05-14] MEDS: FERROUS SULFATE 325 MG TAB PO SCH (08:19)
[2023-05-14] MEDS: TORSEMIDE 20 MG TAB PO SCH ×2 (08:20→17:07)
[2023-05-14] MEDS: CIPROFLOXACIN HCL 250 MG TAB PO SCH ×2 (08:21→20:53)
[2023-05-14] MEDS: ALOGLIPTIN BENZOATE 12.5 MG TABLET PO SCH (08:21)
[2023-05-14] MEDS: INSULIN -REGULAR HUMAN 50 UNIT/0.5 ML ML SQ SCH ×4 (08:21→20:52)
[2023-05-14] MEDS: ALBUTEROL 2.5 MG/3 ML NEB SOL NEB PRN ×3 (08:25→21:05)
[2023-05-14] MEDS: PANTOPRAZOLE 40MG TABLET PO SCH (08:26)
[2023-05-14] MEDS: ASCORBIC ACID 500 MG TABLET PO SCH ×2 (08:28→20:53)
[2023-05-14] MEDS: FE SULF/FA/VIT B COMP & C TAB PO SCH (08:29)
[2023-05-14] MEDS: MAGNESIUM OXIDE 400 MG TAB PO SCH ×2 (08:30→20:53)
[2023-05-14] MEDS: LOSARTAN POTASSIUM 50 MG TABLET PO SCH ×2 (09:37→20:52)
[2023-05-14] MEDS: INSULIN GLARGINE 100 UNIT/ML SQ SCH (20:51)
[2023-05-14] MEDS: ATORVASTATIN 80 MG TAB PO SCH (20:53)
[2023-05-14] MEDS: HYDROCODONE/APAP 5/325 MG TAB PO PRN (20:53)
[2023-05-14] MEDS: DOCUSATE NA/SENNA CONC 1 TAB PO SCH (20:53)
[2023-05-14] MEDS: LATANOPROST 0.005% 2.5ML OPTH OPTH SCH (20:54)
--- NOTE | 2023-05-14 20:59 | PN ---
Date of Progress Note: 05/14/2023 Time Of Service: 1:15 p.m. Subjective: Ms. Murrell is ambulating around the unit, doing very well. She denies any significant pain in the back and is happy with her therapy and believes she will be ready to go home this weekend . Review of Systems: No fevers, chills, nausea, vomiting, myalgias, arthralgias, rash, headache, or weight change. No sig nificant back pain. She is ambulating and feeling much better. Physical Examination: Vital Signs: Blood pressure 153/55, pulse of 75, respiratory rate of 16, and temperature 97.8. General: Ms. Murrell is ambulating around the unit. She is in no significant distress. Her back pa in again is well managed. HEENT: She is normocephalic, atraumatic. Sclerae anicteric. Oropharynx pink and moist. Neck: Supple. Chest: Clear. Heart: Regular. Neurologic: Improved strength in the lower extremities. Laboratory Studies: Blood sugars are elevated ranging from 287 to 340. She is managed for that by t Renal Service. X-ray/imaging: No new x-ray or imaging. Medications: Have been reviewed and remain unchanged. Current Functional Status: Currently, Ms. Murrell is able to perform sit and [id number] transfers with bed rails independently. [id number] transfers done independently, stand and pivot transfers done independently. She ambulated 250 feet twice, 175 feet twice, 150 feet with a rolling walker wit h standby assistance. She ascended and descended 15 steps with bilateral handrails with standby assi stance. With occupational therapy, she participated in therapy very well and had no significant diff iculties. She was independent with [id number] and toilet transfers. Progress Towards Rehabilitation Goals: Ms. Murrell is making excellent progress towards her goals of becoming independent with upper and lower body dressing, transferring, toileting, showering, ambulat ing now 250 to 500 feet with independence, up and down 10 steps with independence and performing cogn itive functioning with independence. Assessment: Ms. Murrell is an 82-year-old patient in the rehabilitation unit with a transforaminal l umbar interbody fusion of L4-5. She is doing very well with physical and occupational therapy. She is getting towards modified independence to independence. She has elevated blood sugars and is manag ed by the Renal Service and will have her blood sugar medication adjusted. She has hypertension, hyp erkalemia, hypothyroidism, morbid obesity, and obstructive sleep apnea. Plan: 1.Continue with physical and occupational therapy for 3 hours a day, 5 of 7 days. 2.We will adjust her oral hypoglycemics. Her insulin that is Semglee insulin will be increased from 60 to 63 units at night. 3.She will continue Eliquis 2.5 mg twice daily for DVT prophylaxis. 4.Continue Norvasc 5 mg a day for hypertension. 5.Continue Lipitor 80 mg at bedtime for dyslipidemia. 6.Continue Cipro 250 mg twice daily for a urinary tract infection. 7.Continue Colace for insomnia. 8.Continue ferrous sulfate and Hemocyte Plus for anemia. 9.Continue gabapentin for neuropathic pain. 10.Continue tramadol as well for moderate pain. Comorbids That Continue To Impact The Rehabilitation Process: At this point, her diabetes is poorly controlled and medications are being adjusted to improve that. However, otherwise she has no signifi cant limitations and is thriving and will be likely ready for discharge and continue therapy aggressi vely. The recommendation will be outpatient. She may, however, because of transportation issues, have physical therapy continue at home. MARIA ELENA/MONICO Voice ID: [id number] Report ID: [id number]
[2023-05-15 04:38] LABS: Absolute Lymphocytes (CBC) 1.9 K/uL (0.7-4.9); Hematocrit 25.6 % (36.0-45.0); Lymphocytes % 14.4 % (15.3-44.8); MPV 8.3 fL (7.6-11.3); RBC Red Blood Cell Count 2.84 M/uL (3.86-4.86)
[2023-05-15 04:39] LABS: Albumin 2.6 g/dL (3.4-5.0); Magnesium 2.3 mg/dL (1.6-2.4); Potassium 4.5 mEq/L (3.5-5.1); Prealbumin 20.9 mg/dL (20-40)
[2023-05-15] MEDS: METOPROLOL XL 25 MG TAB PO SCH ×2 (05:08→17:05)
[2023-05-15] MEDS: LEVOTHYROXINE SOD 0.05 MG TABLET PO SCH (05:09)
[2023-05-15 05:25] LABS: Blood Morphology Comment NOTED (NOT SEEN); Platelet Estimate ADEQ; Polychromasia 1+
[2023-05-15] MEDS: PANTOPRAZOLE 40MG TABLET PO SCH (06:50)
[2023-05-15] MEDS: ALOGLIPTIN BENZOATE 12.5 MG TABLET PO SCH (07:29)
[2023-05-15] MEDS: AMLODIPINE 5 MG TAB PO SCH (07:29)
[2023-05-15] MEDS: ASPIRIN 81 MG CHEWABLE TABLET PO SCH (07:30)
[2023-05-15] MEDS: FERROUS SULFATE 325 MG TAB PO SCH (07:30)
[2023-05-15] MEDS: MULTIVITAMIN TAB PO SCH (07:30)
[2023-05-15] MEDS: EZETIMIBE 10 MG TAB PO SCH (07:30)
[2023-05-15] MEDS: FE SULF/FA/VIT B COMP & C TAB PO SCH (07:30)
[2023-05-15] MEDS: DOCUSATE NA 100 MG CAP PO SCH (07:31)
[2023-05-15] MEDS: CYANOCOBALAMIN 1,000 MCG TAB PO SCH (07:31)
[2023-05-15] MEDS: SPIRONOLACTONE 25 MG TABLET PO SCH (07:31)
[2023-05-15] MEDS: APIXABAN 2.5 MG TABLET PO SCH ×2 (07:31→19:23)
[2023-05-15] MEDS: TORSEMIDE 20 MG TAB PO SCH (07:31)
[2023-05-15] MEDS: ASCORBIC ACID 500 MG TABLET PO SCH ×2 (07:32→19:24)
[2023-05-15] MEDS: LORATADINE 10 MG TAB PO SCH (07:32)
[2023-05-15] MEDS: MAGNESIUM OXIDE 400 MG TAB PO SCH ×2 (07:32→19:24)
[2023-05-15] MEDS: GLUCERNA SHAKE 237 ML CAN PO SCH ×2 (08:00→19:23)
[2023-05-15] MEDS: GABAPENTIN 100 MG CAP PO SCH ×3 (08:00→22:09)
[2023-05-15] MEDS: INSULIN -REGULAR HUMAN 50 UNIT/0.5 ML ML SQ SCH ×4 (08:07→20:21)
[2023-05-15] MEDS: ISOSORBIDE MONO SR 30 MG TAB PO SCH (09:41)
[2023-05-15] MEDS: CIPROFLOXACIN HCL 250 MG TAB PO SCH ×2 (09:41→19:23)
[2023-05-15] MEDS: LOSARTAN POTASSIUM 50 MG TABLET PO SCH ×2 (09:41→19:23)
[2023-05-15] MEDS: DOCUSATE NA/SENNA CONC 1 TAB PO SCH (19:24)
[2023-05-15] MEDS: ATORVASTATIN 80 MG TAB PO SCH (19:24)
[2023-05-15] MEDS: LATANOPROST 0.005% 2.5ML OPTH OPTH SCH (19:25)
[2023-05-15] MEDS: guaiFENesin 100 MG/5 ML UCUP PO PRN (19:26)
[2023-05-15] MEDS: ALBUTEROL 2.5 MG/3 ML NEB SOL NEB PRN (20:20)
[2023-05-15] MEDS: INSULIN GLARGINE 100 UNIT/ML SQ SCH (20:22)
--- NOTE | 2023-05-15 21:36 | P.PN ---
Date of Service: 05/15/23 Vital Signs Temp Pulse Resp BP Pulse Ox 97 F 68 17 147/49 H 92 05/15/23 09:49 05/15/23 17:05 05/15/23 06:42 05/15/23 17:05 05/15/23 06:42 Medications Hydrocodone Bitart/Acetaminophen (Hydrocodone/Apap 5/325 Mg Tab) 1 tab PO Q4H PRN PRN Reason: Pain scale 8-10 (Severe) Last Admin: 05/14/23 20:53 Dose: 1 tab Albuterol Sulfate (Albuterol 2.5 Mg/3 Ml Neb Mildred) 2.5 mg NEB [id number] PRN PRN Reason: WHEEZING Last Admin: 05/15/23 20:20 Dose: 2.5 mg Amlodipine Besylate (Amlodipine 5 Mg Tab) 5 mg PO DAILY [facility] Last Admin: 05/15/23 07:29 Dose: 5 mg Apixaban (Apixaban 2.5 Mg Tablet) 2.5 mg PO BID [facility] Last Admin: 05/15/23 19:23 Dose: 2.5 mg Ascorbic Acid (Ascorbic Acid 500 Mg Tablet) 500 mg PO BID [facility] Last Admin: 05/15/23 19:24 Dose: 500 mg Aspirin (Aspirin 81 Mg Chewable Tablet) 81 mg PO DAILY [facility] Last Admin: 05/15/23 07:30 Dose: 81 mg Atorvastatin Calcium (Atorvastatin 80 Mg Tab) 80 mg PO BEDTIME [facility] Last Admin: 05/15/23 19:24 Dose: 80 mg Ciprofloxacin (Ciprofloxacin Hcl 250 Mg Tab) 250 mg PO BID [facility]; Protocol Stop: 05/21/23 08:01 Last Admin: 05/15/23 19:23 Dose: 250 mg Cyanocobalamin (Cyanocobalamin 1,000 Mcg Tab) 2,000 mcg PO DAILY [facility] Last Admin: 05/15/23 07:31 Dose: 2,000 mcg Cyclobenzaprine HCl (Cyclobenzaprine 10 Mg Tab) 5 mg PO BID PRN PRN Reason: MUSCLE SPASMS Docusate Sodium (Docusate Na 100 Mg Cap) 100 mg PO DAILY [facility] Last Admin: 05/15/23 07:31 Dose: 100 mg Ezetimibe (Ezetimibe 10 Mg Tab) 10 mg PO DAILY [facility] Last Admin: 05/15/23 07:30 Dose: 10 mg Enteral Nutritional Formula (Glucerna Shake 237 Ml Can) 237 ml PO BID [facility] Last Admin: 05/15/23 19:23 Dose: 237 ml Ferrous Sulfate (Ferrous Sulfate 325 Mg Tab) 325 mg PO DAILY [facility] Last Admin: 05/15/23 07:30 Dose: 325 mg Gabapentin (Gabapentin 100 Mg Cap) 100 mg PO BID [facility] Last Admin: 05/15/23 14:06 Dose: 100 mg Glucagon (Glucagon 1 Mg/Vial) 1 mg IM 1X PRN; Protocol PRN Reason: HYPOGLYCEMIA Guaifenesin (Guaifenesin 100 Mg/5 Ml Ucup) 200 mg PO QID PRN PRN Reason: COUGH Last Admin: 05/15/23 19:26 Dose: 200 mg Dextrose (Dextrose 10% Water Iv Soln.) 125 mls @ 0 mls/hr IV PRN PRN; Protocol PRN Reason: HYPOGLYCEMIA Insulin Glargine (Insulin Glargine 100 Unit/Ml) 63 unit SQ BEDTIME [facility] Last Admin: 05/15/23 20:22 Dose: 63 unit Insulin Human Regular (Insulin -Regular Human 50 Unit/0.5 Ml Ml) 0 unit SQ ACHS [facility]; Protocol Last Admin: 05/15/23 20:21 Dose: 5 unit Isosorbide Mononitrate (Isosorbide Wheeler Sr 30 Mg Tab) 30 mg PO DAILY [facility] Last Admin: 05/15/23 09:41 Dose: 30 mg Latanoprost (Latanoprost 0.005% 2.5ml Opth) 1 drops OPTH BEDTIME [facility] Last Admin: 05/15/23 19:25 Dose: 1 drops Levothyroxine Sodium (Levothyroxine Sod 0.05 Mg Tablet) 0.05 mg PO DAILYAC [facility] Last Admin: 05/15/23 05:09 Dose: 0.05 mg Loratadine (Loratadine 10 Mg Tab) 10 mg PO DAILY [facility] Last Admin: 05/15/23 07:32 Dose: 10 mg Losartan Potassium (Losartan Potassium 50 Mg Tablet) 50 mg PO BID [facility] Last Admin: 05/15/23 19:23 Dose: 50 mg Magnesium Hydroxide (Magnesium Hydroxide 8% 30 Ml) 30 ml PO DAILY PRN PRN Reason: CONSTIPATION Last Admin: 05/13/23 15:17 Dose: 30 ml Magnesium Oxide (Magnesium Oxide 400 Mg Tab) 400 mg PO BID [facility] Last Admin: 06/22/23 19:24 Dose: 400 mg Metoprolol Succinate (Metoprolol Xl 25 Mg Tab) 25 mg PO 0600,1800 [facility] Last Admin: 05/15/23 17:05 Dose: 25 mg Multivitamins/Iron (Fe Sulf/Fa/Vit B Comp & C Tab) 1 tab PO DAILY WITH BREAKFAST [facility] Last Admin: 05/15/23 07:30 Dose: 1 tab Multivitamins/Minerals (Multivitamin Tab) 1 tab PO DAILY [facility] Last Admin: 05/15/23 07:30 Dose: 1 tab Pantoprazole Sodium (Pantoprazole 40mg Tablet) 40 mg PO DAILY@0730 [facility]; Ana col Last Admin: 05/15/23 06:50 Dose: 40 mg Senna/Docusate Sodium (Docusate Na/Senna Conc 1 Tab) 2 tab PO BEDTIME [facility] Last Admin: 05/15/23 19:24 Dose: 2 tab Spironolactone (Spironolactone 25 Mg Tablet) 25 mg PO DAILY [facility] Last Admin: 05/15/23 07:31 Dose: 25 mg Torsemide (Torsemide 20 Mg Tab) 40 mg PO DAILY [facility] Tramadol HCl (Tramadol Hcl 50 Mg Tab) 50 mg PO Q6H PRN PRN Reason: Pain scale 5-7 (Moderate) Last Admin: 05/12/23 21:06 Dose: 50 mg Lab Results (last 24 hrs) 05/15/23 19:38: POC Glucose 245 H 05/15/23 16:02: POC Glucose 205 H 05/15/23 11:57: POC Glucose 203 H 05/15/23 07:36: POC Glucose 196 H 05/15/23 03:52: Sodium 132 L, Potassium 4.5, Chloride 92 L, Carbon Dioxide 36 H, Anion Gap 8.5, BUN 73 H, Creatinine 2.37 H, Est GFR (CKD-EPI) 20 L, Glucose 235 H, Calcium 9.7, Magnesium 2.3, Albumin 2.6 L, Prealbumin 20.9 05/15/23 03:52: WBC 13.20 H, RBC 2.84 L, Hgb 8.5 L, Hct 25.6 L, MCV 90.0, MCH 29.8, MCHC 33.1, RDW 15.7 H, Plt Count 387, MPV 8.3, Neutrophils % 71.0, Lymphocytes % 14.4 L, Monocytes % 10.0, Eosinophils % 4.1, Basophils % 0.5, Absolute Neutrophils 9.4 H, Segmented Neutrophils 60, Band Neutrophils 7 H, Absolute Lymphocytes 1.9, Lymphocytes 12 L, Monocytes 7, Absolute Monocytes 1.3, Eosinophils 6 H, Absolute Eosinophils 0.5, Absolute Basophils 0.1, Metamyelocytes 3 H, Myelocytes 2 H, Reactive Lymphocytes 3, Platelet Estimate Adeq, Polychromasia 1+, Morphology Comment Noted Microbiology Results 05/06/23 23:02 Clean Catch Urine [place] Count - Final >100,000 CFU/ML. 05/06/23 23:02 Clean Catch Urine - Final Pseudomonas Aeruginosa Assessment/ Plan: Nephrology No dyspnea No chest pain Feeling better with improved edema No acute events overnight Vitals, medications, blood work and imaging reviewed in the chart. NAD. Obese. NCAT. Normal respiratory effort. RRR. ND Abd. No C/C. LE Edema 2+. No rash. AAO. Normal speech. EXAM DESCRIPTION: RAD - Chest Single View - 05/10/2023 9:54 am CLINICAL HISTORY: increase coughing, wheezing Chest pain. COMPARISON: Chest Single View dated 05/08/2023; Abdomen 1 View (KUB) dated 05/07/2023 FINDINGS: Portable technique limits examination quality. Mild pulmonary edema is noted. The heart is moderately enlarged. No displaced fractures.Aortic atherosclerosis. IMPRESSION: Mild to moderate CHF. 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
--- NOTE | 2023-05-15 23:02 | PN ---
Date of Progress Note: 05/15/2023 [id number] Progress Note Visit Time Of Service: 1:15 p.m. Subjective: Ms. Murrell is doing very well. She is very ready to be discharged tomorrow and she has no new complaints. Her back pain is well managed with pain patch and medications. Review of Systems: No significant issues such as fevers, chills, nausea, vomiting, myalgias, or arthralgias. No rash. No psychiatric complaints. Physical Examination: Vital Signs: Blood pressure 147/49, pulse 68, respiratory rate 16, temperature 97, and oxygen satura tion 96%. General: Ms. Murrell is ambulating around the unit freely and doing very well without any complaints . She is happy again with her therapy and has no focal deficits. Back: Has good hemostasis at the surgical site L4-5. Laboratory Studies: White blood cell count 13.2, neutrophils normal at 71, and hemoglobin stable at 8.5. Sodium 132, potassium 4.5, chloride 92, carbon dioxide 36, BUN 73, creatinine 2.37, glucose ran ged from 196 to 245, albumin 2.6, prealbumin 20.9. X-ray/imaging: No new x-rays or imaging. Current Functional Status: Today she did [id number] transfers using bed rails independently, sit- to-stand transfers done independently with a rolling walker, and stand and pivot transfers done indep endently. She ambulated 250 feet twice, 175 feet twice, another 100 feet once with a rolling walker independently. She ascended and descended 15 steps with bilateral handrails independently. With occ upational therapy, she is independent with bed mobility, ambulating from room to toilet, to shower, c overing over 250 feet with a Rollator. Progress Towards Rehabilitation Goals: Ms. Murrell has made excellent progress towards her rehabilit ation goals of becoming independent with upper and lower body dressing, transferring, toileting, show ering, performing her ambulation of now over 500 feet with independence, up and down 15 steps with in dependence, and she is performing her cognitive functioning already with no restrictions. Assessment: Ms. Murrell is an 82-year-old patient in the rehabilitation unit with an L4-5 transforam inal lumbar interbody fusion. She has done excellent with her physical and occupational therapy. Sh e is at independence and ready for discharge in the morning. She does still have some elevated blood sugars and that has been managed with help of the Renal Service. She has hypertension, hyperkalemia , hypothyroidism, morbid obesity, and obstructive sleep apnea. Plan: 1.Until discharge tomorrow, continue with physical and occupational therapy. 2.Continue all comorbid conditions, which have been listed above using the medications also listed, which include Lipitor, Norvasc, Colace, ferrous sulfate, gabapentin, tramadol, and Eliquis for DVT pr ophylaxis. Comorbids That Continue To Impact Rehabilitation Process: Currently diabetes mellitus, which is not optimally managed and is not stopping her from doing very well. Blood sugars have been slightly bett er after a small change was made to her insulin regimen. She will follow up with the Renal Service a nd primary care physician after discharge tomorrow for further adjustments to her oral hypoglycemics and insulin. LB/MODL Voice ID: [id number] Report ID: [id number]
[2023-05-16] MEDS: ALBUTEROL 2.5 MG/3 ML NEB SOL NEB PRN ×2 (01:30→21:40)
[2023-05-16] MEDS: METOPROLOL XL 25 MG TAB PO SCH ×2 (05:27→17:11)
[2023-05-16] MEDS: LEVOTHYROXINE SOD 0.05 MG TABLET PO SCH (05:27)
[2023-05-16] MEDS: INSULIN -REGULAR HUMAN 50 UNIT/0.5 ML ML SQ SCH ×4 (07:09→22:09)
[2023-05-16] MEDS: PANTOPRAZOLE 40MG TABLET PO SCH (07:33)
[2023-05-16] MEDS: LORATADINE 10 MG TAB PO SCH (07:33)
[2023-05-16] MEDS: ISOSORBIDE MONO SR 30 MG TAB PO SCH (07:33)
[2023-05-16] MEDS: SPIRONOLACTONE 25 MG TABLET PO SCH (07:34)
[2023-05-16] MEDS: APIXABAN 2.5 MG TABLET PO SCH ×2 (07:34→21:05)
[2023-05-16] MEDS: AMLODIPINE 5 MG TAB PO SCH (07:35)
[2023-05-16] MEDS: GABAPENTIN 100 MG CAP PO SCH ×2 (08:00→21:05)
--- NOTE | 2023-05-16 08:23 | RAD REPORT ---
EXAM DESCRIPTION: RADChest Single View05/16/2023 7:57 am CLINICAL HISTORY: r/o pnuemunia, increase coughing, elevated wbc COMPARISON: Chest Single View dated 05/12/2023; Chest Single View dated 05/10/2023; Chest Single View dated 05/08/2023; Abdomen 1 View (KUB) dated 05/07/2023 TECHNIQUE: Portable AP view of the chest. FINDINGS: Progressive bibasilar patchy mild opacities. No pneumothorax or effusion. The cardiomedia stinal contours are unremarkable. IMPRESSION: Progressive bibasilar patchy mild opacities, may reflect worsening central edema or stephanie y pneumonia.
[2023-05-16 08:59] LABS: Absolute Lymphocytes (CBC) 1.7 K/uL (0.7-4.9); Hematocrit 26.8 % (36.0-45.0); Lymphocytes % 12.6 % (15.3-44.8); MCV 91.1 fL (80-100); MPV 8.2 fL (7.6-11.3); RBC Red Blood Cell Count 2.94 M/uL (3.86-4.86)
[2023-05-16] MEDS: FERROUS SULFATE 325 MG TAB PO SCH (09:10)
[2023-05-16] MEDS: FE SULF/FA/VIT B COMP & C TAB PO SCH (09:10)
[2023-05-16] MEDS: EZETIMIBE 10 MG TAB PO SCH (09:11)
[2023-05-16] MEDS: CYANOCOBALAMIN 1,000 MCG TAB PO SCH (09:11)
[2023-05-16] MEDS: ASPIRIN 81 MG CHEWABLE TABLET PO SCH (09:11)
[2023-05-16] MEDS: DOCUSATE NA 100 MG CAP PO SCH (09:11)
[2023-05-16] MEDS: CIPROFLOXACIN HCL 250 MG TAB PO SCH (09:11)
[2023-05-16] MEDS: MULTIVITAMIN TAB PO SCH (09:12)
[2023-05-16] MEDS: TORSEMIDE 20 MG TAB PO SCH (09:12)
[2023-05-16] MEDS: LOSARTAN POTASSIUM 50 MG TABLET PO SCH (09:12)
[2023-05-16 09:14] LABS: Potassium 4.6 mEq/L (3.5-5.1)
[2023-05-16] MEDS: MAGNESIUM OXIDE 400 MG TAB PO SCH (10:19)
[2023-05-16] MEDS: GLUCERNA SHAKE 237 ML CAN PO SCH ×2 (10:19→21:05)
[2023-05-16] MEDS: ASCORBIC ACID 500 MG TABLET PO SCH ×2 (10:21→21:06)
[2023-05-16] MEDS: ALOGLIPTIN BENZOATE 12.5 MG TABLET PO SCH (10:22)
--- NOTE | 2023-05-16 13:49 | P.RH.PN ---
Estimated Length of Stay: 12 Expected Discharge Date: 05/17/23 Discharge Disposition Plan: Home Family Support: Yes [facility] Goal: Mobility, Transfers, Self Care Vital Signs: Last Vital Signs Temp 96.6 F L 05/16/23 07:20 Pulse 68 05/16/23 09:12 Resp 19 05/16/23 07:20 BP 141/55 H 05/16/23 09:12 Pulse Ox 95 05/16/23 07:20 Laboratory: Laboratory Last Values WBC 13.20 thou/uL (4.3-10.9) H 05/16/23 08:43 RBC 2.94 M/uL (3.86-4.86) L 05/16/23 08:43 Hgb 8.8 g/dL (12.0-15.0) L 05/16/23 08:43 Hct 26.8 % (36.0-45.0) L 05/16/23 08:43 MCV 91.1 fL (80-100) 05/16/23 08:43 MCH 29.8 pg (27.0-35.0) 05/16/23 08:43 MCHC 32.7 g/dL (32.0-36.0) 05/16/23 08:43 RDW 16.0 % (12.1-15.2) H 05/16/23 08:43 Plt Count 394 thou/uL (152-406) 05/16/23 08:43 MPV 8.2 fL (7.6-11.3) 05/16/23 08:43 Neutrophils % 72.4 % (41.7-73.7) 05/16/23 08:43 Lymphocytes % 12.6 % (15.3-44.8) L 05/16/23 08:43 Monocytes % 8.8 % (3.3-12.3) 05/16/23 08:43 Eosinophils % 5.8 % (0-4.4) H 05/16/23 08:43 Basophils % 0.4 % (0-1.3) 05/16/23 08:43 Absolute Neutrophils 9.6 K/uL (1.8-8.0) H 05/16/23 08:43 Segmented Neutrophils 60 % (40-80) 05/15/23 03:52 Band Neutrophils 7 % (0-1) H 05/15/23 03:52 Absolute Lymphocytes 1.7 K/uL (0.7-4.9) 05/16/23 08:43 Lymphocytes 12 % (15-42) L 05/15/23 03:52 Monocytes 7 % (0-10) 05/15/23 03:52 Absolute Monocytes 1.2 K/uL (0.1-1.3) 05/16/23 08:43 Eosinophils 6 % (0-3) H 05/15/23 03:52 Absolute Eosinophils 0.8 K/uL (0-0.5) H 05/16/23 08:43 Absolute Basophils 0.1 K/uL (0-0.5) 05/16/23 08:43 Metamyelocytes 3 % (0-0) H 05/15/23 03:52 Myelocytes 2 % (0-0) H 05/15/23 03:52 Nucleated RBCs 1 /100WBC 05/11/23 05:57 Reactive Lymphocytes 3 % 05/15/23 03:52 Platelet Estimate Adeq 05/15/23 03:52 Giant Platelets Few 05/11/23 05:57 Polychromasia 1+ 05/15/23 03:52 Morphology Comment Noted (NOT SEEN) 05/15/23 03:52 Sodium 134 mEq/L (136-145) L 05/16/23 08:43 Potassium 4.6 mEq/L (3.5-5.1) 05/16/23 08:43 Chloride 96 mEq/L (98-107) L 05/16/23 08:43 Carbon Dioxide 34 mEq/L (21-32) H 05/16/23 08:43 Anion Gap 8.6 mEq/L (5.0-15.0) 05/16/23 08:43 BUN 61 mg/dL (7-18) H 05/16/23 08:43 Creatinine 2.11 mg/dL (0.55-1.02) H 05/16/23 08:43 Est GFR (CKD-EPI) 23 ml/min (=/>90) L 05/16/23 08:43 Glucose 229 mg/dL (74-106) H 05/16/23 08:43 POC Glucose 281 mg/dL (65-120) H 05/16/23 11:39 Uric Acid 10.6 mg/dL (2.6-6.0) H 05/13/23 03:50 Calcium 9.6 mg/dL (8.5-10.1) 05/16/23 08:43 Phosphorus 4.2 mg/dL (2.5-4.9) 05/13/23 03:50 Magnesium 2.3 mg/dL (1.6-2.4) 05/15/23 03:52 Total Bilirubin 0.2 mg/dL (0.2-1.0) 05/13/23 03:50 AST 20 U/L (15-37) 05/13/23 03:50 ALT 18 U/L (13-56) 05/13/23 03:50 Alkaline Phosphatase 119 U/L (45-117) H 05/13/23 03:50 NT-Pro-B Natriuret Pep 412 pg/mL (<450) 05/13/23 03:50 Serum Total Protein 6.6 g/dL (6.4-8.2) 05/13/23 03:50 Albumin 2.6 g/dL (3.4-5.0) L 05/15/23 03:52 Globulin 4.1 g/dL (2.3-3.5) H 05/13/23 03:50 Albumin/Globulin Ratio 0.6 (1.1-1.8) L 05/13/23 03:50 Prealbumin 20.9 mg/dL (20-40) 05/15/23 03:52 Urine Color Light-yellow (Yellow) 05/06/23 23:02 Urine Clarity Clear (Clear) 05/06/23 23:02 Urine pH 5.5 (5.0-7.0) 05/06/23 23:02 Ur Specific [place] 1.016 (1.005-1.030) 05/06/23 23:02 Glucose (UA)(Auto) Negative (Negative) 05/06/23 23:02 Urine Ketones Negative (Negative) 05/06/23 23:02 Urine Blood Trace (Negative) H 05/06/23 23:02 Urine Nitrite Negative (Negative) 05/06/23 23:02 Urine Bilirubin Negative (Negative) 05/06/23 23:02 Urine Urobilinogen Normal (Normal) 05/06/23 23:02 Ur Leukocyte Esterase 500 [place]/uL (Negative) H 05/06/23 23:02 Urine RBC <5 /HPF (None Seen) 05/06/23 23:02 Urine WBC <5 /HPF (<5) 05/06/23 23:02 Ur Squamous Epith Cells None seen /HPF (None Seen) 05/06/23 23:02 Urine Bacteria None seen /HPF (<20) 05/06/23 23:02 Urine Culture Reflexed Not needed 05/06/23 23:02 Urine Total Protein 1+ (Negative) H 05/06/23 23:02 Smear Scan Cancelled 05/11/23 05:57 Weight: 220 lb Wound Present: No Closed Surgical Incision Present: Yes Negative Pressure Wound Therapy Present: No Physician Update: Labs reviewed and show elevated but stable WBC of 13.3. She has Cipro for UTI with chest x-ray shows possible edema versus possible pneumonia. Walking 250' x 2 and up and down 15 steps. Independent with all ADLs and transfers. Mild SOB will increase incentive spirometery and change to Levaquin. Summary: Patient's care plan and assisted goals have been reviewed and revised as necessary. Please see the Rehabilitation Signature page for all necessary signatures.
[2023-05-16] MEDS: TRAMADOL HCL 50 MG TAB PO PRN (14:13)
--- NOTE | 2023-05-16 14:46 | P.PN ---
Nephrology note (S) Denies any overt dyspnea, not needing continuous O2 but does acknowledge some cough and congestion. Vitals, medications, blood work and imaging reviewed in the chart. NAD. Obese. Normal respiratory effort. b/l air entry, reduced BS at bases RRR. Soft, obese, NT. LE Edema 2+. No rash. AAO. Normal speech. A/P) Stage I DINA (multifactorial) on underlying CKD NOS (pt reports following with [facility]) -Cr level(s) have upward trended from admission level and have not yet trended back down. Mod azotemia noted on diuretics, other. HTN with CKD/ CHF -BP acceptable, given DINA, will temp scale back on ARB dose and cont holding parameter Diastolic CHF, A/C LE Edema, pulm edema. Although BNP level was < 1000 on admission -Cont Torsemide but did adjust dose -Continue Spironolactone but lower dose due to reduced GFR currently -Low sodium diet -Daily weight Possible PNA, unspecified organism -CXR shows progression of infiltrates, pt with cough. Pseudomonas on UCx -Switch ABx to Levaquin dosed for reduced CrCl and complete course Ciro Prakahs MD, [id number]
[2023-05-16] MEDS ORDERED: levoFLOXacin 750 MG TAB PO SCH (16:00)
[2023-05-16] MEDS: LATANOPROST 0.005% 2.5ML OPTH OPTH SCH (21:00)
[2023-05-16] MEDS: ATORVASTATIN 80 MG TAB PO SCH (21:05)
[2023-05-16] MEDS: DOCUSATE NA/SENNA CONC 1 TAB PO SCH (21:05)
[2023-05-16] MEDS: INSULIN GLARGINE 100 UNIT/ML SQ SCH (22:10)
[2023-05-16 23:39] VITALS: O2SAT 93
[2023-05-17] MEDS: guaiFENesin 100 MG/5 ML UCUP PO PRN (02:48)
[2023-05-17] MEDS: LEVOTHYROXINE SOD 0.05 MG TABLET PO SCH (05:21)
[2023-05-17] MEDS: METOPROLOL XL 25 MG TAB PO SCH (05:21)
[2023-05-17] MEDS: PANTOPRAZOLE 40MG TABLET PO SCH (05:34)
[2023-05-17] MEDS: ISOSORBIDE MONO SR 30 MG TAB PO SCH (07:13)
[2023-05-17] MEDS: APIXABAN 2.5 MG TABLET PO SCH (07:14)
[2023-05-17] MEDS: AMLODIPINE 5 MG TAB PO SCH (07:15)
[2023-05-17 07:36] VITALS: BP 137/62; TEMP 97.1
[2023-05-17] MEDS ORDERED: LOSARTAN POTASSIUM 50 MG TABLET PO SCH (08:00)
[2023-05-17] MEDS: GABAPENTIN 100 MG CAP PO SCH ×2 (08:00→08:35)
[2023-05-17] MEDS ORDERED: SPIRONOLACTONE 25 MG TABLET PO SCH (08:00)
[2023-05-17] MEDS: ASPIRIN 81 MG CHEWABLE TABLET PO SCH (08:34)
[2023-05-17] MEDS: FE SULF/FA/VIT B COMP & C TAB PO SCH (08:34)
[2023-05-17] MEDS: EZETIMIBE 10 MG TAB PO SCH (08:34)
[2023-05-17] MEDS: CYANOCOBALAMIN 1,000 MCG TAB PO SCH (08:34)
[2023-05-17] MEDS: ASCORBIC ACID 500 MG TABLET PO SCH (08:34)
[2023-05-17] MEDS: ALOGLIPTIN BENZOATE 12.5 MG TABLET PO SCH (08:34)
[2023-05-17] MEDS: MULTIVITAMIN TAB PO SCH (08:34)
[2023-05-17] MEDS: FERROUS SULFATE 325 MG TAB PO SCH (08:34)
[2023-05-17] MEDS: DOCUSATE NA 100 MG CAP PO SCH (08:34)
[2023-05-17] MEDS: LORATADINE 10 MG TAB PO SCH (08:35)
[2023-05-17] MEDS: TORSEMIDE 20 MG TAB PO SCH (08:35)
[2023-05-17] MEDS: GLUCERNA SHAKE 237 ML CAN PO SCH (08:36)
[2023-05-17] MEDS: INSULIN -REGULAR HUMAN 50 UNIT/0.5 ML ML SQ SCH (08:45)
[2023-05-17] MEDS ORDERED: MAGNES/ALUMIN/SIMET 30ML UCUP PO ONE (10:02)
[2023-05-23] MEDS ORDERED: levoFLOXacin 750 MG TAB PO ONE (14:00)
== END 2023-05-17 10:20 | disposition home health service (06) | DRG 559 ==
LOC: 5TH 19:20
PROVIDERS: ADMIT Psychiatry & Neurology Neurology with Special Qualifications in Child Neurology; ATTEND Psychiatry & Neurology Neurology with Special Qualifications in Child Neurology
DX: Z47.89 Encounter for other orthopedic aftercare (principal); I50.33 Acute on chronic diastolic (congestive) heart failure; E87.20 Acidosis, unspecified; Z68.41 Body mass index [BMI] 40.0-44.9, adult; I13.0 Hypertensive heart and chronic kidney disease with heart failure and stage 1 through stage 4 chronic kidney disease, or unspecified chronic kidney disease; N39.0 Urinary tract infection, site not specified; N17.9 Acute kidney failure, unspecified; I35.0 Nonrheumatic aortic (valve) stenosis; I25.10 Atherosclerotic heart disease of native coronary artery without angina pectoris; E87.5 Hyperkalemia; E03.9 Hypothyroidism, unspecified; E66.01 Morbid (severe) obesity due to excess calories; G47.33 Obstructive sleep apnea (adult) (pediatric); E11.22 Type 2 diabetes mellitus with diabetic chronic kidney disease; B96.5 Pseudomonas (aeruginosa) (mallei) (pseudomallei) as the cause of diseases classified elsewhere; N18.32 Chronic kidney disease, stage 3b; D63.1 Anemia in chronic kidney disease
CPT/HCPCS: 36415; 71045; 74018; 80048; 80053; 81001; 82040; 82947; 83735; 83880; 84100; 84134; 84550; 85025; 87077; 87086; 87088; 87186; 94010; 94640; 97110; 97116; 97162; 97165; 97530; 97542; J1815; J2001; J7613